=== PATIENT | male | born 1955 | race Caucasian/White ===

== ENCOUNTER 2023-08-29 09:12 | Outpatient (OUT) | payer MEDICARE, SELFPAY ==
[2023-08-29 09:22] LABS: Hemoglobin 15.1 g/dL (14.0-18.0)
[2023-08-29] MEDS: ALBUTEROL SULFATE 2.5 MG/3 ML VIAL NEB IH (10:39)
--- NOTE | 2023-08-29 11:14 | RT_ITS ---
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 Findings were considered accurate and reproducible. Both pre- and post-bronchodilator values utilized for spirometry. Due to software limitations, no prior studies (if performed previously) are currently available for comparison. Spirometry (based on post-bronchodilator values): -FEV1/FVC: Reduced @ 34% -FEV1: Severely reduced @ 43% -FVC: Normal @ 94% -There is no significant bronchodilator response. Lung volumes by plethysmography (based on pre-bronchodilator values): -RV: Increased @ 166% -TLC: High normal @ 117% Diffusion capacity: -DLCO: Severe reduction @ 44% when corrected for Hb 15.1g/dL Flow-volume loop: -Severe obstructive pattern Impressions: -Spirometry suggests severe obstruction. There is no bronchodilator response. An elevated RV suggests air trapping. There is a severely reduced diffusion capacity. Overall study is compatible with COPD/emphysema. Clinical correlation required. Electronically Signed On 09-01-2023 16:17:33 EDT by Israel Miller
== END 2023-08-29 09:13 | disposition home or self-care (01) ==
PROVIDERS: PCP Family Medicine; Visit Provider Family Medicine
DX: J42 Unspecified chronic bronchitis (principal); F17.210 Nicotine dependence, cigarettes, uncomplicated
CPT/HCPCS: 36415; 85018; 94060; 94726; 94729; 99406

== ENCOUNTER 2023-10-13 15:39 | Inpatient (IN) | payer MEDICARE, SELFPAY ==
[2023-10-13] VITALS (57 sets, daily range): BP systolic 105–149; BP diastolic 66–100; PULSE 136–144; RESP 0–39; TEMP 36.6; O2SAT 89–98; BMI 23.7; BMI 23.6
--- NOTE | 2023-10-13 15:54 | ECG_ITS ---
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
--- NOTE | 2023-10-13 16:00 | ED_ITS ---
HPI - Abdominal Pain General Chief Complaint: Abdominal Pain Stated Complaint: ABD/BACK PAIN/LOSS APPETITE Time Seen by Provider: 10/13/23 15:43 Source: patient Mode of arrival: walk-in Limitations: no limitations History of Present Illness HPI narrative: 68-year-old male presents for nausea and vague abdominal pain and lower back pain. He's had these symptoms for five days and has not been able to eat or drink much. He didn't realize his heart was tachycardic. He's had no trauma or fever. Not complaining of chest pain or shortness of breath. His mouth feels dry. Related Data Home Medications Medication Instructions Recorded Confirmed albuterol sulfate 90 mcg/actuation 1 inh inhalation DAILY 10/13/23 10/13/23 aerosol inhaler atorvastatin 10 mg tablet 10 mg PO DAILY 10/13/23 10/13/23 fluticasone fur. 200 mcg-umeclid 1 inh inhalation DAILY 10/13/23 10/13/23 62.5 mcg-vilant 25 mcg inhalat.powder (Trelegy Ellipta) montelukast 10 mg tablet 10 mg PO DAILY 10/13/23 10/13/23 Allergies Allergy/AdvReac Type Severity Reaction Status Date / Time latex Allergy Severe Verified 10/13/23 15:49 adenosine Allergy Intermediate dyspnea Verified 10/13/23 15:49 Review of Systems ROS Narrative A ten point review of systems is negative except as noted above. PFSH PFSH Social History Smoking status: Current every day smoker Exam Narrative Exam Narrative: Nurses note and vital signs reviewed and patient is not hypoxic. General: The patient appears well and in no apparent distress. Patient is resting comfortably on cart. Skin: Warm, dry, no pallor noted. There is no rash noted. Head: Normocephalic, atraumatic Eye: Normal conjunctiva, no drainage Ears, Nose, Mouth, and Throat: oral mucosa is somewhat dry. Nares patent. Mouth without vesicles. Cardiovascular: Regular Rate and Rhythm, tachycardic Respiratory: Patient is in no distress, no accessory muscle use, lungs are clear to auscultation, no wheezing, rales or rhonchi Back: non-tender, no CVA tenderness bilaterally to percussion. GI: mild vague diffuse tenderness. No masses or distention. Musculoskeletal: The patient has no evidence of calf tenderness, no pitting edema, symmetrical pulses noted bilaterally Neurological: A&O, normal speech Psychiatric: Cooperative Constitutional Vital Signs, click to edit/add: Last Vital Signs Temp 97.8 F 10/13/23 15:43 Pulse 142 H 10/13/23 15:43 Resp 22 10/13/23 15:43 BP 139/98 H 10/13/23 18:08 Pulse Ox 96 10/13/23 15:43 O2 Del Method Room Air 10/13/23 15:43 Course Vital Signs Vital signs: Vital Signs Temperature 97.8 F 10/13/23 15:43 Pulse Rate 142 H 10/13/23 15:43 Respiratory Rate 22 10/13/23 15:43 Blood Pressure 149/97 H 10/13/23 15:43 Pulse Oximetry 96 10/13/23 15:43 Oxygen Delivery Method Room Air 10/13/23 15:43 Temperature 97.8 F 10/13/23 15:43 Pulse Rate 142 H 10/13/23 15:43 Respiratory Rate 22 10/13/23 15:43 Blood Pressure 139/98 H 10/13/23 18:08 Pulse Oximetry 96 10/13/23 15:43 Oxygen Delivery Method Room Air 10/13/23 15:43 MDM - Abdominal Pain MDM Narrative Medical decision making narrative: the patient presents with vague abdominal pain and some lower back pain. Urine shows blood and white cells and culture is ordered as well as blood cultures. He was given 2 g of IV Rocephin. WBC is normal as is his lactic acid and renal function. He has consistent with pyelitis and ureteritis. There is no evidence of an abscess or pyelonephritis. He was tachycardic and was given IV fluids and IV Cardizem without change in his heart rate. He is being admitted and findings are discussed with the patient and his . I do not suspect sepsis. Differential Diagnosis Differential diagnosis: Likely abdominal pain, calculus of kidney, constipation, diverticulitis, gastroenteritis, pancreatitis, small bowel obstruction and other (pyelonephritis) Lab Data Attestation: I reviewed the patient's lab results. Labs: Lab Results 10/13/23 10/13/23 10/13/23 Range/Units 15:50 15:55 17:05 WBC 10.5 (4.0-11.0) 10^3/uL RBC 4.48 L (4.70-6.10) 10^6/uL Hgb 15.0 (14.0-18.0) g/dL Hct 45.7 (42.0-54.0) % MCV 102.0 H (80.0-94.0) fL MCH 33.5 (25.9-34.0) pg MCHC 32.8 (29.9-35.2) g/dL RDW 12.8 (11.0-15.0) % Plt Count 289 (150-450) 10^3/uL MPV 9.7 (9.5-13.5) fL Neut % (Auto) 67.7 (43.0-75.0) % Lymph % (Auto) 19.2 L (20.5-60.0) % [place] % (Auto) 9.3 (1.7-12.0) % Eos % (Auto) 2.4 (0.9-7.0) % Baso % (Auto) 1.0 (0.2-2.0) % Neut # (Auto) 7.1 H (1.4-6.5) 10^3/uL Lymph # (Auto) 2.0 (1.2-3.8) 10^3/uL [place] # (Auto) 1.0 H (0.3-0.8) 10^3/uL Eos # (Auto) 0.3 (0.0-0.7) 10^3/uL Baso # (Auto) 0.1 (0.0-0.1) 10^3/uL Abs Immat Gran (auto) 0.04 H (0.00-0.03) 10^3/uL Imm/Tot Granulo (auto) 0.4 (0.0-0.5) % Sodium 134 L (136-145) mmol/L Potassium 4.0 (3.5-5.1) mmol/L Chloride 97 L (98-107) mmol/L Carbon Dioxide 25.4 (21.0-32.0) mmol/L Anion Gap 15.6 BUN 11.0 (7.0-18.0) mg/dL Creatinine 0.89 (0.70-1.30) mg/dL Est GFR ( Amer) >60 (>=60) Est GFR (Non-Af Amer) >60 (>=60) BUN/Creatinine Ratio 12.4 Glucose 126 H (74-106) mg/dL Lactate 1.8 (0.4-2.0) mmol/L Calcium 9.3 (8.5-10.1) mg/dL Total Bilirubin 1.7 H (0.2-1.0) mg/dL Direct Bilirubin 0.6 H* (0.0-0.2) mg/dL AST 18 (15-37) U/L ALT 17 (16-63) U/L Alkaline Phosphatase 77 (46-116) U/L Troponin I High Sens 37.7 (4.0-76.1) pg/mL Total Protein 7.8 (6.4-8.2) g/dL Albumin 3.6 (3.4-5.0) g/dL Globulin 4.2 g/dL Albumin/Globulin Ratio 0.9 Amylase 24 L (25-115) U/L Lipase 16.0 (16.0-77.0) U/L Urine Color Yellow (YELLOW) Urine Clarity Slightly cloudy A (CLEAR) Urine pH 5.5 (5.0-9.0) Ur Specific [place] 1.010 (1.005-1.025) Urine Protein 100 A (NEG/TRACE) mg/dL Urine Glucose (UA) Negative (NEGATIVE) mg/dL Urine Ketones 40 A (NEGATIVE) mg/dL Urine Occult Blood Large A (NEGATIVE) Urine Nitrite Negative (NEGATIVE) Urine Bilirubin Negative (NEGATIVE) Urine Urobilinogen 1.0 (0.2-1.0) EU/dL Ur Leukocyte Esterase Trace A (NEGATIVE) Urine RBC 20-50 A (0-2) #/HPF Urine WBC 5-10 A (NONE SEEN) #/HPF Ur Squamous Epith Cells Rare (NONE/RARE) #/LPF Urine Crystals None seen (None Seen) #/HPF Urine Bacteria None seen (NONE SEEN) #/HPF Urine Casts None seen (NONE SEEN) #/LPF Urine Mucus None seen (NONE SEEN) Imaging Data CT scan - abdomen: Radiologist's impression: Procedure: CT abdomen pelvis w con EXAM: CT abdomen pelvis w con HISTORY: nausea, abdominal pain COMPARISON: None. TECHNIQUE: Axial CT imaging was performed through the abdomen and pelvis with intravenous contrast. Multiplanar reformats were performed. Dose reduction techniques were achieved by using automated exposure control and/or adjustment of mA and/or kV according to patient size and/or use of iterative reconstruction technique. FINDINGS: Lung bases: Small bilateral pleural effusions GI upper: Unremarkable. Liver: Normal size and contour. Gallbladder: No significant abnormality. No cholelithiasis. Biliary system: No intra or extrahepatic biliary ductal dilatation. Spleen: Normal size. Pancreas: Unremarkable. Adrenal glands: Normal adrenal glands. Kidneys/ureters: Normal contours. There is enhancement of the right greater than left renal calyces, pelvis and ureteral bolden with surrounding fat stranding, representing acute pyelitis and ureteritis. No hydronephrosis. No nephrolithiasis or ureterolithiasis. Vessels: No aneurysm. Lymph Nodes: Prominent bilateral periaortic Lymph nodes, likely reactive. Small bowel: No wall thickening or dilatation. Colon: No wall thickening or dilatation. Constipation. Colonic diverticulosis without evidence of acute diverticulitis. Appendix: No findings of appendicitis. Peritoneal cavity: No free fluid or pneumoperitoneum. Lower : Prostatomegaly. No acute urinary bladder finding. Bones: No acute bony abnormality. Soft tissues: No acute finding. Additional findings: None. IMPRESSION: enhancement of the right greater than left renal calyces, pelvis and ureteral bolden with surrounding fat stranding, representing acute pyelitis and ureteritis. Correlation with urinalysis and patient, the symptom is recommended. Electronically authenticated by: CHANNING GONSALES Date: 10/13/2023 16:51 Procedure: XR chest 1V EXAM: XR chest 1V HISTORY: nausea, tachycardia COMPARISON: None. TECHNIQUE: AP portable study FINDINGS: There is bilateral apical scarring. Increased interstitial markings bilaterally are noted, appearing chronic. No superimposed alveolar infiltrate. There is cardiomegaly. Great vessels are normal. Bony structures are unremarkable. IMPRESSION: Cardiomegaly without overt congestive changes. No superimposed acute pulmonary process is identified. Electronically authenticated by: Lorenzo SHAW Date: 10/13/2023 17:10 Discharge Plan Discharge Chief Complaint: Abdominal Pain Clinical Impression: Acute pyelitis Patient Disposition: Admitted As Inpatient Time of Disposition Decision: 18:30 Condition: Good Prescriptions / Home Meds: No Action albuterol sulfate 90 mcg/actuation HFA aerosol inhaler 1 inh INHALATION DAILY atorvastatin 10 mg tablet 10 mg PO DAILY Trelegy Ellipta 200-62.5-25 mcg blister with device 1 inh INHALATION DAILY montelukast 10 mg tablet 10 mg PO DAILY Referrals: Shanell Craig MD [Primary Care Provider] - 1 week
[2023-10-13 16:02] LABS: Basophils Absolute Auto 0.1 10^3/uL (0.0-0.1); Eosinophils Absolute Auto 0.3 10^3/uL (0.0-0.7); Eosinophils Percent Auto 2.4 % (0.9-7.0); Hematocrit 45.7 % (42.0-54.0); Immature Granulocytes Abs Auto 0.04 10^3/uL (0.00-0.03); Immature Granulocytes Pct Auto 0.4 % (0.0-0.5); Lymphocytes Percent Auto 19.2 % (20.5-60.0); Mean Corpuscular HGB Conc 32.8 g/dL (29.9-35.2); Mean Corpuscular Hemoglobin 33.5 pg (25.9-34.0); Mean Platelet Volume 9.7 fL (9.5-13.5); Monocytes Percent Auto 9.3 % (1.7-12.0); Neutrophils Absolute Auto 7.1 10^3/uL (1.4-6.5); Neutrophils Percent Auto 67.7 % (43.0-75.0); Platelet Count 289 10^3/uL (150-450); Red Blood Count 4.48 10^6/uL (4.70-6.10); Red Cell Distribution Width 12.8 % (11.0-15.0); White Blood Count 10.5 10^3/uL (4.0-11.0)
[2023-10-13] MEDS: ONDANSETRON PF 4 MG/2 ML VIAL IV (16:09)
[2023-10-13] MEDS: 0.9 % SODIUM CHLORIDE 1,000 ML 1000 ML IV ×2 (16:10→17:35)
[2023-10-13 16:11] LABS: Anion Gap 15.6; BUN Creatinine Ratio 12.4; Calcium 9.3 mg/dL (8.5-10.1); Carbon Dioxide 25.4 mmol/L (21.0-32.0); Chloride 97 mmol/L (98-107); Estimated GFR (African America >60 (>=60); Estimated GFR (Non-African Ame >60 (>=60); Glucose 126 mg/dL (74-106); Sodium 134 mmol/L (136-145)
[2023-10-13 16:20] LABS: Alanine Aminotransferase 17 U/L (16-63); Albumin Globulin Ratio 0.9; Albumin Level 3.6 g/dL (3.4-5.0); Alkaline Phosphatase 77 U/L (46-116); Amylase 24 U/L (25-115); Aspartate Amino Transferase 18 U/L (15-37); Bilirubin Total 1.7 mg/dL (0.2-1.0); Globulin 4.2 g/dL; Total Protein 7.8 g/dL (6.4-8.2); Troponin I High Sensitivity 37.7 pg/mL (4.0-76.1)
[2023-10-13 16:21] LABS: Bilirubin Direct 0.6 mg/dL (0.0-0.2)
--- NOTE | 2023-10-13 16:32 | CT_ITS ---
The [address] [place], [place] [address] Patient Name: GABRIELA JAFFE MRN: [id number] date: 1955 Sex: M Assigned Patient Location: ER Current Patient Location: ER Accession/Order Number: [id number] Exam Date: 10/13/2023 16:19 Report Date: 10/13/2023 16:51 At the request of: SHELDON SIMPSON Procedure: CT abdomen pelvis w con EXAM: CT abdomen pelvis w con HISTORY: nausea, abdominal pain COMPARISON: None. TECHNIQUE: Axial CT imaging was performed through the abdomen and pelvis with intravenous contrast. Multiplanar reformats were performed. Dose reduction techniques were achieved by using automated exposure control and/or adjustment of mA and/or kV according to patient size and/or use of iterative reconstruction technique. FINDINGS: Lung bases: Small bilateral pleural effusions GI upper: Unremarkable. Liver: Normal size and contour. Gallbladder: No significant abnormality. No cholelithiasis. Biliary system: No intra or extrahepatic biliary ductal dilatation. Spleen: Normal size. Pancreas: Unremarkable. Adrenal glands: Normal adrenal glands. Kidneys/ureters: Normal contours. There is enhancement of the right greater than left renal calyces, pelvis and ureteral bolden with surrounding fat stranding, representing acute pyelitis and ureteritis. No hydronephrosis. No nephrolithiasis or ureterolithiasis. Vessels: No aneurysm. Lymph Nodes: Prominent bilateral periaortic Lymph nodes, likely reactive. Small bowel: No wall thickening or dilatation. Colon: No wall thickening or dilatation. Constipation. Colonic diverticulosis without evidence of acute diverticulitis. Appendix: No findings of appendicitis. Peritoneal cavity: No free fluid or pneumoperitoneum. Lower : Prostatomegaly. No acute urinary bladder finding. Bones: No acute bony abnormality. Soft tissues: No acute finding. Additional findings: None. CT/CT abdomen pelvis w con IMPRESSION: enhancement of the right greater than left renal calyces, pelvis and ureteral bolden with surrounding fat stranding, representing acute pyelitis and ureteritis. Correlation with urinalysis and patient, the symptom is recommended. Electronically authenticated by: CHANNING GONSALES Date: 10/13/2023 16:51
--- NOTE | 2023-10-13 16:33 | XR_ITS ---
The [address] [address] Patient Name: GABRIELA JAFFE MRN: [id number] date: 1955 Sex: M Assigned Patient Location: ER Current Patient Location: ER Accession/Order Number: [id number] Exam Date: 10/13/2023 16:19 Report Date: 10/13/2023 17:10 At the request of: SHELDON SIMPSON Procedure: XR chest 1V EXAM: XR chest 1V HISTORY: nausea, tachycardia COMPARISON: None. TECHNIQUE: AP portable study FINDINGS: There is bilateral apical scarring. Increased interstitial markings bilaterally are noted, appearing chronic. No superimposed alveolar infiltrate. There is cardiomegaly. Great vessels are normal. Bony structures are unremarkable. XR/XR chest 1V IMPRESSION: Cardiomegaly without overt congestive changes. No superimposed acute pulmonary process is identified. Electronically authenticated by: Lorenzo SHAW Date: 10/13/2023 17:10
[2023-10-13 16:42] LABS: Lactate/Lactic Acid 1.8 mmol/L (0.4-2.0)
[2023-10-13] MEDS: MORPHINE SULFATE 4 MG/ML VIAL IV ×2 (16:46→18:26)
[2023-10-13 17:16] LABS: Bilirubin Urine NEGATIVE (NEGATIVE); Blood Urine LARGE (NEGATIVE); Color Urine YELLOW (YELLOW); Glucose Urine UA NEGATIVE (NEGATIVE); Ketones Urine 40 mg/dL (NEGATIVE); Leukocyte Esterase Urine TRACE (NEGATIVE); Nitrite Urine NEGATIVE (NEGATIVE); Protein Urine 100 mg/dL (NEG/TRACE); pH Urine 5.5 (5.0-9.0)
[2023-10-13 17:17] LABS: Clarity Urine SLIGHTLY CLOUDY (CLEAR)
[2023-10-13 17:23] LABS: Bacteria Urine NONE SEEN #/HPF (NONE SEEN); Cast Seen? NONE SEEN #/LPF (NONE SEEN); Crystals Seen? None Seen #/HPF (None Seen); Mucus Urine NONE SEEN (NONE SEEN); RBC Urine 20-50 #/HPF (0-2); Squamous Epithelial Cell Urine RARE #/LPF (NONE/RARE)
[2023-10-13] MEDS: DILTIAZEM HCL 25 MG/5 ML VIAL 10 MG IV ×2 (17:35→18:08)
[2023-10-13] MEDS: CEFTRIAXONE 1,000 MG in 0.9 % SODIUM CHLORIDE 50 ML 100 MG IV ×2 (17:57→19:03)
--- NOTE | 2023-10-13 19:58 | W.PM.TELEPN ---
Progress Note: Subjective Subjective Interval history: Mr Maradiaga is a 68yo man with a PMHx of COPD and Hyperlipidemia who presented to the ED with five days of nausea, vomiting, and lower abdominal pain. He had a hard time eating any food because he would vomit it up and he tried to drink electrolyte balanced water. Three days ago he started to have flank pain and he noticed that his urine had become dark and malodorous, but he did not have any dysuria. He denies any palpitations, chest pain, SOB, or fevers, but he did have some chills. He did not have any diarrhea or constipation. In the ED he was found to have pyuria and hematuria and was persistently tachycardic. A CT Abd/pelvis showed evidence of bilateral pyelitis and cystitis so he was started on ceftriaxone and IVF. His tachycardia did not improve and his EKG showed sinus tachycardia. The ED physician gave one dose of diltiazem for possible atrial fibrillation with no change. Exam Constitutional Vital Signs, click to edit/add: Last Vital Signs Temp 98 F 10/13/23 19:43 Pulse 138 H 10/13/23 19:53 Resp 16 10/13/23 19:53 BP 126/91 10/13/23 19:43 Pulse Ox 90 L 10/13/23 19:53 O2 Del Method Room Air 10/13/23 19:53 Documenting provider has reviewed patient's vital signs: yes Common normals: no apparent distress, average body habitus, oriented x3, no limitations, healthy appearing, alert and well nourished [facility] Common normals: normocephalic, head/scalp atraumatic, hearing grossly normal bilaterally, external ears normal and external nose normal Eye Common normals: PERRL, EOMs intact bilaterally, conjunctivae normal, no scleral icterus and normal visual gayle by confrontation Neck & C-Spine Common normals: full ROM, no lymphadenopathy, supple, no meningeal signs and no JVD Lymph Lymphatic: no lymphadenopathy noted Chest Common normals: inspection of chest normal and palpation of chest normal Respiratory Common normals: normal respiratory effort, no retractions, no use of accessory muscles and clear to auscultation bilaterally Cardio Common normals: no JVD, regular rate, regular rhythm, S1 normal heart sound, S2 normal heart sound, no murmurs and peripheral pulses 2+ throughout GI Common normals: Normal to inspection, nondistended, normoactive bowel sounds present, soft to palpation and non-tender Common normals: no CVA tenderness Back & Pelvis Common normals: no CVA tenderness Extremity Common normals: normal to inspection, full ROM, normal capillary refill, no joint enlargement, no clubbing, cyanosis or edema and no pedal edema Neuro Common normals: oriented x3, CN's II-XII intact bilaterally, moves all extremities, no focal motor deficits and no sensory deficits noted Psych Common normals: mental status grossly normal, thought process normal, cooperative, affect normal, speech normal, activity/motor behavior normal, denies hallucinations, denies homicidal ideation and denies suicidal ideation Progress Note: Objective Labs Labs: Short CBC 10/13/23 Range/Units 15:50 WBC 10.5 (4.0-11.0) 10^3/uL Hgb 15.0 (14.0-18.0) g/dL Hct 45.7 (42.0-54.0) % Plt Count 289 (150-450) 10^3/uL BMP 10/13/23 15:50 Sodium 134 L Potassium 4.0 Chloride 97 L Carbon Dioxide 25.4 BUN 11.0 Creatinine 0.89 Glucose 126 H Calcium 9.3 Liver Function 10/13/23 Range/Units 15:50 Total Bilirubin 1.7 H (0.2-1.0) mg/dL Direct Bilirubin 0.6 H* (0.0-0.2) mg/dL AST 18 (15-37) U/L ALT 17 (16-63) U/L Alkaline Phosphatase 77 (46-116) U/L Albumin 3.6 (3.4-5.0) g/dL Urine 10/13/23 Range/Units 17:05 Urine Color Yellow (YELLOW) Urine Clarity Slightly cloudy A (CLEAR) Urine pH 5.5 (5.0-9.0) Ur Specific [place] 1.010 (1.005-1.025) Urine Protein 100 A (NEG/TRACE) mg/dL Urine Glucose (UA) Negative (NEGATIVE) mg/dL Progress Note: A&P Assessment and Plan (1) Acute pyelitis: Assessment and Plan: He has pyuria, hematuria and CT evidence of bilateral pyelitis. - admit to hospitalist service - c/w ceftriaxone - f/u blood and urine cultures - pain control - c/w IVF (2) Tachycardia: Assessment and Plan: The patient has persistent tachcyardia that is sinus tachycardia on the EKG. It did not improve with diltiazem. He went to his see his pulmnolologist a week ago before his sysmptoms started and at that time he was noted to have a HR of 119. - c/w IVF for now (3) Hyponatremia: Assessment and Plan: Very mildly below normal at 134. - c/w IVF - trend sodium (4) COPD (chronic obstructive pulmonary disease): Assessment and Plan: He has been noted to drip down to 86% when sleeping. He does not use any oxygen at home. - supplemental oxygen to keep O2sat >88%. - c/w montelukast - c/w trelegy - c/w duonebs as needed (5) Hypercholesteremia: Assessment and Plan: - c/w atorvastatin Telemedicine Attestation Telemedicine Attestation I conducted this encounter from [place] via secure live, [id number] video conference with the patient, located at [facility] with Ann. Prior to the interview, the risks and benefits of telemedicine were discussed with the patient and verbal consent was obtained.
[2023-10-13] MEDS: LACTATED RINGER'S SOLUTION 1,000 ML 100 ML IV (23:53)
[2023-10-13] MEDS: OXYCODONE HCL/ACETAMINOPHEN 5MG/325MG 1 TAB PO (23:55)
[2023-10-14] VITALS (122 sets, daily range): BP systolic 91–117; BP diastolic 65–89; PULSE 128–139; RESP 0–32; TEMP 36.4–36.9; O2SAT 88–98
[2023-10-14 06:33] LABS: Anion Gap 13.8; BUN Creatinine Ratio 11.8; Calcium 8.1 mg/dL (8.5-10.1); Carbon Dioxide 24.2 mmol/L (21.0-32.0); Chloride 102 mmol/L (98-107); Estimated GFR (African America >60 (>=60); Estimated GFR (Non-African Ame >60 (>=60); Glucose 106 mg/dL (74-106); Sodium 136 mmol/L (136-145)
[2023-10-14 06:46] LABS: Basophils Percent Auto 0.8 % (0.2-2.0); Eosinophils Percent Auto 5.1 % (0.9-7.0); Hematocrit 38.7 % (42.0-54.0); Hemoglobin 13.3 g/dL (14.0-18.0); Immature Granulocytes Pct Auto 0.3 % (0.0-0.5); Lymphocytes Percent Auto 34.3 % (20.5-60.0); Mean Corpuscular HGB Conc 34.4 g/dL (29.9-35.2); Mean Corpuscular Hemoglobin 35.6 pg (25.9-34.0); Mean Corpuscular Volume 103.5 fL (80.0-94.0); Mean Platelet Volume 10.2 fL (9.5-13.5); Neutrophils Percent Auto 48.5 % (43.0-75.0); Platelet Count 262 10^3/uL (150-450); Red Blood Count 3.74 10^6/uL (4.70-6.10); White Blood Count 8.6 10^3/uL (4.0-11.0)
[2023-10-14 06:47] LABS: Basophils Absolute Auto 0.1 10^3/uL (0.0-0.1); Eosinophils Absolute Auto 0.4 10^3/uL (0.0-0.7); Immature Granulocytes Abs Auto 0.03 10^3/uL (0.00-0.03); Neutrophils Absolute Auto 4.2 10^3/uL (1.4-6.5)
[2023-10-14] MEDS: OXYCODONE HCL/ACETAMINOPHEN 5MG/325MG 1 TAB PO (08:29)
[2023-10-14] MEDS: ATORVASTATIN CALCIUM 10 MG TABLET PO (08:33)
[2023-10-14] MEDS: ENOXAPARIN SODIUM 40 MG/0.4 ML SYRINGE SUBQ (08:33)
[2023-10-14] MEDS: BISACODYL 5 MG TABLET PO (08:33)
[2023-10-14] MEDS: MONTELUKAST SODIUM 10 MG TABLET PO (08:33)
[2023-10-14] MEDS: METOPROLOL TARTRATE 5 MG/5 ML VIAL IVP ×3 (09:13→09:44)
[2023-10-14] MEDS: MORPHINE SULFATE 2 MG/ML SYRINGE IV (09:14)
[2023-10-14 09:15] LABS: Magnesium 1.7 mg/dL (1.8-2.4)
--- NOTE | 2023-10-14 09:26 | ECG_ITS ---
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
--- NOTE | 2023-10-14 10:48 | CM.NOTE ---
Rounds made with Dr. Salmeron, pt remains tachycardic. Discussed with pt about cardiology consult. No discharge today. Continue IV antibiotics.
[2023-10-14] MEDS: LACTATED RINGER'S SOLUTION 1,000 ML 100 ML IV (11:09)
[2023-10-14] MEDS: TRELEGY ELLIPTA 1 EACH IH (11:09)
--- NOTE | 2023-10-14 11:15 | CA_ITS ---
Patient Name: GABRIELA JAFFE MR#: [id number] : 1955 Exam Date: 10/14/2023 Ordering Doctor: Shaikh Robert Salmeron . ECHOCARDIOGRAM REPORT PROCEDURE: CA ECHO DOPPLER COMPLETE INDICATIONS: Abnormal rhythm COMPARISON: None. DESCRIPTION: COMPLETE ECHOCARDIOGRAM Real-time transthoracic echocardiography with 2D, M-mode, spectral and color flow Doppler performed. QUALITY: Technical quality was good. LEFT VENTRICLE: Normal chamber size. Normal left ventricular wall thickness. LV EF: Global left ventricular systolic function is severely decreased. Visual estimation of left ventricular ejection fraction is 20-25%. D shaped septum consistent with right ventricular pressure and/or volume overload. DIASTOLIC: Not adequately assessed due to heart rhythm. ATRIAL SEPTUM: Inadequately visualized. LEFT ATRIUM: Severe dilatation. RIGHT ATRIUM: Severe dilatation. RIGHT VENTRICLE: Moderate dilatation. Decreased right ventricular systolic function. TRICUSPID VALVE: Normal mobility and thickness. Moderate to severe regurgitation. Moderate pulmonary hypertension. RVSP 50mmHg MITRAL VALVE: Normal mobility and thickness. No evidence of mitral valve stenosis. There is no mitral annular calcification. Moderate to severe mitral regurgitation. AORTIC VALVE: Normal trileaflet appearance. Moderately calcified aortic valve. Normal leaflet mobility. No evidence of aortic valve stenosis. Trivial aortic regurgitation. AORTIC ROOT: Normal diameter and appearance. PULMONIC VALVE: Normal thickness and mobility. No stenosis. Trivial regurgitation. PERICARDIUM: Trivial pericardial effusion. IVC: Mild dilatation. Measuring 2.3cm with no collapse. CONCLUSION: 1. Global left ventricular systolic function is severely reduced; visually estimated ejection fraction is 20 to 25% 2. Severe biatrial enlargement 3. Right ventricle is moderately dilated with reduced systolic function 4. Moderate to severe tricuspid regurgitation 5. Moderately elevated right ventricular systolic pressure; RVSP 50 mmHg 6. Moderate to severe mitral regurgitation 7. Trivial pericardial effusion Adult Echocardiography Procedure Report Left Ventricle LVEDD (3.7 - 5.6 cm): 5.20 cm LVESD (2.2 - 4.0 cm): 4.27 cm LVIVS thickness (0.6 - 1.2 cm): 0.86 cm LVPW thickness (0.5 - 1.0 cm): 1.02 cm e': 0.10 m/s E - e': 9.78 LVOT Max Gradient: 1.90 mm[Hg], 1.83 mm[Hg], 1.83 mm[Hg] LVOT Area (cm2): 0.68 m/s Peak Velocity (LVOT): 0.69 m/s, 0.68 m/s, 0.68 m/s Mean Velocity (LVOT): 0.42 m/s LVOT Diameter 2.29 cm Left Ventricular Ejection Fraction: 24.98 % Left Atrium LA Volume Index (2D A2C): 59.45 ml/m2 Left Atrium Systolic Dimension: 4.59 cm Mitral Valve MV E to A Ratio: 154.81 Mitral Valve A-Wave Peak Velocity: 0.01 m/s Mitral Valve E-Wave Peak Velocity: 1.00 m/s Right Ventricle RV Internal Diastolic Dimension: 4.26 cm Aorta AO Root Diam: 3.35 cm Ascending Ao Diam: 3.05 cm Aortic Valve AoV Area (Peak Darrell): 3.25 cm2, 3.29 cm2 AoV Area (VTI): 5.36 cm2, 5.35 cm2 Peak Velocity(Antegrade Flow): 0.86 m/s Peak Gradient(Antegrade Flow): 2.95 mm[Hg] Mean Velocity(Antegrade Flow): 0.55 m/s Mean Gradient(Antegrade Flow): 1.50 mm[Hg] Velocity Time Integral: 8.55 cm Tricuspid Valve Peak Velocity (Regurgitant Flow): 2.72 m/s, 2.74 m/s, 2.69 m/s, 2.59 m/s, 2.59 m/s, 2.88 m/s, 2.95 m/s Pulmonic Valve Peak Velocity: 0.64 m/s Peak Gradient: 1.61 mm[Hg], 1.64 mm[Hg] Right Atrium Right Atrium Systolic Pressure: 139.79 ml, 139.79 ml Dictated by: Marc Godinez M.D. on 10/15/2023 at 09:33 Approved by: Marc Godinez M.D. on 10/15/2023 at 09:39
--- NOTE | 2023-10-14 12:55 | PM.HP ---
H&P: HPI History of Present Illness Chief complaint: ABD/BACK PAIN/LOSS APPETITE, Pyelitis Narrative: 68 y o male reports nausea, intractable vomiting along with right sided back pain for past few days. He also reports poor appetite, decreased PO intake as a result of that. He is unsure of whether he had a fever. But experienced chills. Denies diarrhea. He is generally healthy and has no major medical problems other than COPD. Patient reports foul smelling urine and dysuria associated with his symptoms His work up revealed Bilateral pyelonephritis and was admitted overnight for continued clinical care. Patient was started on IVF and IV rocpehin. His HR has been persistently above 130 since admission. He has no prior hx of CAD/CHF/Afib or abnormal heart rhythm. He denies CP, SOB, palpitations. He does not appear dry on exam Review of Systems ROS Status of ROS 10 or more systems reviewed and unremarkable except as noted in history and below PFSH [facility] Medical History COPD (chronic obstructive pulmonary disease) ?J44.9 - Chronic obstructive pulmonary disease, unspecified (ICD-10) Hypercholesteremia ?E78.00 - Pure hypercholesterolemia, unspecified (ICD-10) Surgical History H/O sinus surgery ?Z98.890 - Other specified postprocedural states (ICD-10) Family History Mother Family history of stroke Other Family history of COPD (chronic obstructive pulmonary disease) Family history of hypertension Social History Within the past year, how often did you have a drink containing alcohol: 4 or more times a week Within the past year, how many standard drinks containing alcohol did you have on a typical day: 3 or 4 Within the past year, how often did you have six or more drinks on one occasion: daily or almost daily Total score: 6 Score interpretation: A score of 4 or more indicates drinking is likely to affect patient's safety. 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 Highest level of school completed/degree received: Professional degree (MD, [employer], DVM, DDS) Are you now , , , , never or living with a partner: Little interest or pleasure in doing things: not at all Feeling down, depressed, or hopeless: not at all Feel stressed/tense/nervous/anxious/difficulty sleeping: not at all Meds Home Medications and Allergies Home Medications Medication Instructions Recorded Confirmed Type albuterol sulfate 90 mcg/actuation 1 inh inhalation DAILY 10/13/23 10/13/23 History aerosol inhaler atorvastatin 10 mg tablet 10 mg PO DAILY 10/13/23 10/13/23 History fluticasone fur. 200 mcg-umeclid 1 inh inhalation DAILY 10/13/23 10/13/23 History 62.5 mcg-vilant 25 mcg inhalat.powder (Trelegy Ellipta) ipratropium 0.5 mg-albuterol 3 mg 3 ml inhalation BID 10/13/23 10/13/23 History (2.5 mg base)/3 mL nebulization soln montelukast 10 mg tablet 10 mg PO DAILY 10/13/23 10/13/23 History Allergies Allergy/AdvReac Type Severity Reaction Status Date / Time latex Allergy Severe Verified 10/13/23 15:49 adenosine Allergy Intermediate dyspnea Verified 10/13/23 15:49 Exam Constitutional Vital Signs, click to edit/add: Last Vital Signs Temp 98.1 F 10/14/23 07:40 Pulse 132 H 10/14/23 12:50 Resp 16 10/14/23 12:50 BP 93/72 10/14/23 09:41 Pulse Ox 88 L 10/14/23 07:40 O2 Del Method Room Air 10/14/23 07:40 Documenting provider has reviewed patient's vital signs: yes Common normals: no apparent distress and oriented x3 General appearance: cooperative HENMT Common normals: normocephalic and head/scalp atraumatic Head and scalp: normocephalic and atraumatic Eye Common normals: conjunctivae normal and no scleral icterus Conjunctiva: conjunctiva(e) normal Respiratory Common normals: normal respiratory effort and clear to auscultation bilaterally Effort & inspection: able to speak in complete sentences Auscultation: clear to auscultation bilaterally Cardio Common normals: regular rate, S1 normal heart sound and S2 normal heart sound Rate: tachycardic Heart sounds: S1 normal and S2 normal GI Common normals: Normal to inspection, nondistended, normoactive bowel sounds present, soft to palpation, non-tender and no hepatosplenomegaly Palpation: soft and no hepatosplenomegaly Extremity Common normals: no clubbing, cyanosis or edema Neuro Common normals: oriented x3, moves all extremities and no focal motor deficits Psych Common normals: mental status grossly normal, denies hallucinations, denies homicidal ideation and denies suicidal ideation Results Labs Labs: Short CBC 10/13/23 10/14/23 Range/Units 15:50 04:02 WBC 10.5 8.6 (4.0-11.0) 10^3/uL Hgb 15.0 13.3 L (14.0-18.0) g/dL Hct 45.7 38.7 L (42.0-54.0) % Plt Count 289 262 (150-450) 10^3/uL BMP 10/13/23 10/14/23 15:50 04:02 Sodium 134 L 136 Potassium 4.0 4.0 Chloride 97 L 102 Carbon Dioxide 25.4 24.2 BUN 11.0 9.0 Creatinine 0.89 0.76 Glucose 126 H 106 Calcium 9.3 8.1 L Liver Function 10/13/23 Range/Units 15:50 Total Bilirubin 1.7 H (0.2-1.0) mg/dL Direct Bilirubin 0.6 H* (0.0-0.2) mg/dL AST 18 (15-37) U/L ALT 17 (16-63) U/L Alkaline Phosphatase 77 (46-116) U/L Albumin 3.6 (3.4-5.0) g/dL Urine 10/13/23 Range/Units 17:05 Urine Color Yellow (YELLOW) Urine Clarity Slightly cloudy A (CLEAR) Urine pH 5.5 (5.0-9.0) Ur Specific [place] 1.010 (1.005-1.025) Urine Protein 100 A (NEG/TRACE) mg/dL Urine Glucose (UA) Negative (NEGATIVE) mg/dL Assessment and Plan Assessment and Plan (1) Sepsis: Assessment and Plan: HR > 130, RR> 20 due to pyelonephritis. Other than tachycardia, he seems to be improving. C/w IVF. C/w rocephin. Qualifiers: Sepsis type: sepsis due to unspecified organism Sepsis acute organ dysfunction status: without acute organ dysfunction Qualified Code(s): A41.9 - Sepsis, unspecified organism (2) Acute pyelonephritis: Assessment and Plan: B/l pyeloureteritis. No stone, obstruction F/u urine and blood culture. C/w IV rocephin (3) Tachycardia: Assessment and Plan: No Afib, atrial flutter. Persistent, regular. No prior hx of heart conditions. Added Lopressor. 2D ECHO ordered. Cardiology consult placed. (4) COPD (chronic obstructive pulmonary disease): Assessment and Plan: Stable. No wheezing. C/w home meds Qualifiers: COPD type: unspecified COPD Qualified Code(s): J44.9 - Chronic obstructive pulmonary disease, unspecified (5) Hypercholesteremia: Assessment and Plan: C/w statin.
--- NOTE | 2023-10-14 15:26 | CM.NOTE ---
Important Message From Medicare discussed with pt, pt verbalizes understanding and signs paper. Original given to pt and copy placed on pt's chart.
--- NOTE | 2023-10-14 17:27 | P.CACN_ITS ---
History of Present Illness History of Present Illness Consult date: 10/14/23 Consult reason: atrial fibrillation Chief complaint: ABD/BACK PAIN/LOSS APPETITE, Pyelitis Narrative: 68 y o male with PMH of COPD/ HLD was admitted to with nausea, intractable vomiting along with right sided back pain for past few days. His evaluation in hospital revealed Bilateral pyelonephritis with tachycardia and was admitted overnight for continued clinical care. Patient was started on IVF and IV rocpehin. His HR has been persistently above 130 since admission. He has no prior hx of CAD/CHF/Afib or abnormal heart rhythm. He denies CP, SOB, palpitations. He does not appear dry on exam. His EKG performed in the hospital is revealing for atrial flutter with RVR. He has never been diagnosed previosuly with Afib. Review of Systems ROS Status of ROS 10 or more systems reviewed and unremark able except as noted in history and below [facility] Medical History COPD (chronic obstructive pulmonary disease) ?J44.9 - Chronic obstructive pulmonary disease, unspecified (ICD-10) Hypercholesteremia ?E78.00 - Pure hypercholesterolemia, unspecified (ICD-10) Surgical History H/O sinus surgery ?Z98.890 - Other specified postprocedural states (ICD-10) Family History Mother Family history of stroke Other Family history of COPD (chronic obstructive pulmonary disease) Family history of hypertension Social History Within the past year, how often did you have a drink containing alcohol: 4 or more times a week Within the past year, how many standard drinks containing alcohol did you have on a typical day: 3 or 4 Within the past year, how often did you have six or more drinks on one occasion: daily or almost daily Total score: 6 Score interpretation: A score of 4 or more indicates drinking is likely to affect patient's safety. 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 Highest level of school completed/degree received: Professional degree ([employer]ika CE[employer]ALLOS[employer], DVM, DDS) Are you now , , , , never or living with a partner: Little interest or pleasure in doing things: not at all Feeling down, depressed, or hopeless: not at all Feel stressed/tense/nervous/anxious/difficulty sleeping: not at all Meds Home Medications and Allergies Home Medications Medication Instructions Recorded Confirmed Type albuterol sulfate 90 mcg/actuation 1 inh inhalation DAILY 10/13/23 10/13/23 History aerosol inhaler atorvastatin 10 mg tablet 10 mg PO DAILY 10/13/23 10/13/23 History fluticasone fur. 200 mcg-umeclid 1 inh inhalation DAILY 10/13/23 10/13/23 History 62.5 mcg-vilant 25 mcg inhalat.powder (Trelegy Ellipta) ipratropium 0.5 mg-albuterol 3 mg 3 ml inhalation BID 10/13/23 10/13/23 History (2.5 mg base)/3 mL nebulization soln montelukast 10 mg tablet 10 mg PO DAILY 10/13/23 10/13/23 History Allergies Allergy/AdvReac Type Severity Reaction Status Date / Time latex Allergy Severe Verified 10/13/23 15:49 adenosine Allergy Intermediate dyspnea Verified 10/13/23 15:49 Exam Constitutional Vital Signs, click to edit/add: Last Vital Signs Temp 97.6 F 10/14/23 15:38 Pulse 133 H 10/14/23 16:00 Resp 32 H 10/14/23 15:30 BP 91/66 10/14/23 12:55 Pulse Ox 93 L 10/14/23 11:03 O2 Del Method Room Air 10/14/23 12:55 Common normals: oriented x3 General appearance: cooperative and comfortable Orientation/consciousness: Yes awake, Yes oriented to person, Yes oriented to place and Yes oriented to time HENNH Common normals: normocephalic Head and scalp: normal to inspection Face and sinus: normal facial exam General ear: hearing grossly impaired Mouth: oral and palatal mucosa normal Eye Common normals: PERRL Chest Common normals: inspection of chest normal Respiratory Common normals: normal respiratory effort Effort & inspection: able to speak in complete sentences Auscultation: clear to auscultation bilaterally Percussion: percussion normal Cardio Common normals: no JVD Palpation: normal PMI Rate: tachycardic Rhythm: regular rhythm Heart sounds: S1 normal and S2 normal GI Common normals: Normal to inspection, nondistended, normoactive bowel sounds present Extremity Common normals: normal to inspection, full ROM and no clubbing, cyanosis or edema Neuro Common normals: oriented x3, CN's II-XII intact bilaterally and moves all extremities Results Labs and Meds Lab results: CBC 10/14/23 Range/Units 04:02 WBC 8.6 (4.0-11.0) 10^3/uL RBC 3.74 L (4.70-6.10) 10^6/uL Hgb 13.3 L (14.0-18.0) g/dL Hct 38.7 L (42.0-54.0) % Plt Count 262 (150-450) 10^3/uL Neut # (Auto) 4.2 (1.4-6.5) 10^3/uL Lymph # (Auto) 3.0 (1.2-3.8) 10^3/uL Bailey # (Auto) 1.0 H (0.3-0.8) 10^3/uL Eos # (Auto) 0.4 (0.0-0.7) 10^3/uL Baso # (Auto) 0.1 (0.0-0.1) 10^3/uL Comprehensive Metabolic Panel 10/14/23 Range/Units 04:02 Sodium 136 (136-145) mmol/L Potassium 4.0 (3.5-5.1) mmol/L Chloride 102 (98-107) mmol/L Carbon Dioxide 24.2 (21.0-32.0) mmol/L BUN 9.0 (7.0-18.0) mg/dL Creatinine 0.76 (0.70-1.30) mg/dL Glucose 106 (74-106) mg/dL Calcium 8.1 L (8.5-10.1) mg/dL Intake and Output 10/14/23 10/14/23 10/14/23 07:59 15:59 23:59 Intake Total 1240 / 1240 Balance 1240 / 1240 Intake: Oral 240 / 240 IV 1000 / 1000 Lactated Ringer's Solution 1, 1000 / 1000 000 ml @ 100 mls/hr IV .Q10H JIM Rx#:[id number] Other: # Voids 1 # Unmeasured Voids 1 Assessment and Plan Assessment and Plan (1) Atrial flutter with rapid ventricular response: (2) Sepsis: Qualifiers: Sepsis type: sepsis due to unspecified organism Sepsis acute organ dysfunction status: without acute organ dysfunction Qualified Code(s): A41.9 - Sepsis, unspecified organism (3) Acute pyelonephritis: (4) COPD (chronic obstructive pulmonary disease): Qualifiers: COPD type: unspecified COPD Qualified Code(s): J44.9 - Chronic obstructive pulmonary disease, unspecified (5) Hypercholesteremia: Plan Pt has underlying sepsis and with concurrent atrial flutter with RVR. The underlying hyperadrenergic state will make his ventricular rate difficult to control. Will aim for AVN blockers now with BB. If ECHO is done and EF is normal, then can consider Cardizem drip. If at any point, there is hemodynamic instability, can proceed with DCCV based on ACLS protocol. His CHADSVASC score is 1 based on age and can be started on DOAC until 4 weeks post DCCV. Can consider outpt CTI flutter ablation once acute illness is over. ECHO to be done and ischemia to be ruled out with serial EKG and Trops. Abel Castaneda MD Cardiac Electrophysiology
[2023-10-14] MEDS: CEFTRIAXONE 1,000 MG in 0.9 % SODIUM CHLORIDE 50 ML 100 MG IV (17:31)
[2023-10-14] MEDS: DIGOXIN 500 MCG/2 ML AMPUL 250 MCG IV (18:13)
[2023-10-14] MEDS: APIXABAN 5 MG TABLET PO (18:14)
[2023-10-14] MEDS: METOPROLOL TARTRATE 25 MG TABLET PO (21:11)
[2023-10-14] MEDS: NICOTINE 21 MG PATCH.TD24 TD (21:30)
[2023-10-15] VITALS (44 sets, daily range): BP systolic 100–144; BP diastolic 57–85; PULSE 95–137; RESP 12–28; TEMP 36.7–36.9; O2SAT 89–96
[2023-10-15] MEDS: DIGOXIN 500 MCG/2 ML AMPUL 250 MCG IV ×3 (00:07→12:55)
[2023-10-15 05:10] LABS: Basophils Absolute Auto 0.1 10^3/uL (0.0-0.1); Basophils Percent Auto 0.8 % (0.2-2.0); Eosinophils Absolute Auto 0.6 10^3/uL (0.0-0.7); Eosinophils Percent Auto 7.7 % (0.9-7.0); Hematocrit 38.9 % (42.0-54.0); Hemoglobin 12.7 g/dL (14.0-18.0); Immature Granulocytes Abs Auto 0.05 10^3/uL (0.00-0.03); Immature Granulocytes Pct Auto 0.6 % (0.0-0.5); Lymphocytes Absolute Auto 2.9 10^3/uL (1.2-3.8); Lymphocytes Percent Auto 36.2 % (20.5-60.0); Mean Corpuscular HGB Conc 32.6 g/dL (29.9-35.2); Mean Corpuscular Hemoglobin 33.2 pg (25.9-34.0); Mean Corpuscular Volume 101.6 fL (80.0-94.0); Mean Platelet Volume 10.4 fL (9.5-13.5); Monocytes Absolute Auto 0.9 10^3/uL (0.3-0.8); Monocytes Percent Auto 11.3 % (1.7-12.0); Neutrophils Absolute Auto 3.4 10^3/uL (1.4-6.5); Neutrophils Percent Auto 43.4 % (43.0-75.0); Platelet Count 242 10^3/uL (150-450); Red Blood Count 3.83 10^6/uL (4.70-6.10); Red Cell Distribution Width 12.9 % (11.0-15.0); White Blood Count 7.9 10^3/uL (4.0-11.0)
[2023-10-15 05:30] LABS: Alanine Aminotransferase 15 U/L (16-63); Albumin Globulin Ratio 0.8; Albumin Level 2.7 g/dL (3.4-5.0); Alkaline Phosphatase 59 U/L (46-116); Anion Gap 12.8; Aspartate Amino Transferase 15 U/L (15-37); BUN Creatinine Ratio 14.8; Bilirubin Total 0.7 mg/dL (0.2-1.0); Calcium 8.2 mg/dL (8.5-10.1); Carbon Dioxide 25.8 mmol/L (21.0-32.0); Chloride 103 mmol/L (98-107); Estimated GFR (African America >60 (>=60); Estimated GFR (Non-African Ame >60 (>=60); Globulin 3.2 g/dL; Glucose 115 mg/dL (74-106); Potassium 3.6 mmol/L (3.5-5.1); Sodium 138 mmol/L (136-145); Total Protein 5.9 g/dL (6.4-8.2)
[2023-10-15] MEDS: ATORVASTATIN CALCIUM 10 MG TABLET PO (08:52)
[2023-10-15] MEDS: APIXABAN 5 MG TABLET PO (08:53)
[2023-10-15] MEDS: METOPROLOL TARTRATE 25 MG TABLET PO (08:53)
[2023-10-15] MEDS: TRELEGY ELLIPTA 1 EACH IH (09:16)
--- NOTE | 2023-10-15 11:48 | PM.DS1 ---
DS: Providers Provider Date of admission: 10/13/23 18:45 Primary care physician: Shanell Craig MD Consults: 10/14/23 07:23 Occupational Therapy Eval and Treat Routine Reason for consultation: Ambulatory dysfunction/weakness Physical Therapy Eval and Treat Routine Reason for consultation: Ambulatory dysfunction/weakness 10/14/23 11:15 Consult to Cardiology Routine Reason for consultation: Abnormal rhythm Has provider been notified: No Attending physician on discharge: Shaikh Jaron Discharging clinician: Shaikh Jaron Anticipated date of discharge: 10/15/23 DS: Diagnosis Discharge Diagnosis (1) Atrial flutter with rapid ventricular response: Assessment and plan: New onset, Aflutter with RVR. Rate poorly controlled. No improvement with IV/PO lopressor. Was also given IV digoxin q6H for 4 doses. Stable hemodynamics. Cardiology consult appreciated. Will transfer to [facility] for TESS/CV Started on Eliquis 10/14/23 for stroke px. (2) Chronic systolic heart failure: Assessment and plan: 2D ECHO revealed Severely reduced EF 20-25% New diagnosis. Will defer medications for HF until Aflutter is taken care of. Likely tachycardia induced cardiomyopathy. (3) Sepsis: Assessment and plan: Resolved. On rocephin Qualifiers: Sepsis acute organ dysfunction status: without acute organ dysfunction Sepsis type: Escherichia coli Qualified Code(s): A41.51 - Sepsis due to Escherichia coli [E. coli] (4) Acute pyelonephritis: Assessment and plan: Due to E coli. on rocephin. F/u sensitivity. (5) COPD (chronic obstructive pulmonary disease): Assessment and plan: Chronic smoker. Stable, no wheezing. In trelegy. C/w same. Albuterol as needed Qualifiers: COPD type: unspecified COPD Qualified Code(s): J44.9 - Chronic obstructive pulmonary disease, unspecified (6) Hypercholesteremia: Assessment and plan: C/w statin DS: Summary Hospital Course Hospital Course: 8 y o male presented with nausea, intractable vomiting along with right sided back pain for past few days. His work up revealed Bilateral pyelonephritis and was admitted overnight for monitoring and IV abx. He was also noted to be in Aflutter with RVR. Patient's HR remained persistent in 130 range with no response to IV cardizem, IV lopressor, PO lopressor and IV digoxin. 2D ECHO to assess cardiac structure revealed severely reduced EF -20%, no WMA. Cardiology consulted - recommended transfer to [facility] for TESS/CV Patient has stable hemodynamics, asymptomatic. Started on Eliquis for stroke px Infection w/u - showed growth of E coli in Urine - on rocephin for it. Stable for transfer Status at Discharge Functional status at discharge: independent ambulation Overall status at discharge: patient is not back to baseline Time Spent with Patient Time attestation: Total time spent providing and/or coordinating discharge services: Time spent: greater than 30 minutes Exam Constitutional Vital Signs, click to edit/add: Last Vital Signs Temp 98.0 F 10/15/23 07:00 Pulse 135 H 10/15/23 09:46 Resp 16 10/15/23 07:00 BP 100/57 10/15/23 07:00 Pulse Ox 93 L 10/15/23 09:17 O2 Del Method Room Air 10/15/23 09:17 Documenting provider has reviewed patient's vital signs: yes Common normals: no apparent distress and oriented x3 General appearance: cooperative Respiratory Common normals: normal respiratory effort and clear to auscultation bilaterally Effort & inspection: able to speak in complete sentences Auscultation: clear to auscultation bilaterally Cardio Common normals: S1 normal heart sound and S2 normal heart sound Rate: tachycardic Heart sounds: S1 normal and S2 normal GI Common normals: Normal to inspection, nondistended, normoactive bowel sounds present, soft to palpation, non-tender and no hepatosplenomegaly Palpation: soft and no hepatosplenomegaly Neuro Common normals: oriented x3, moves all extremities and no focal motor deficits DS: Data Data Completed and Pending Labs on day of discharge: Labs from last 24 hours 10/15/23 10/14/23 04:26 04:02 WBC 7.9 RBC 3.83 L Hgb 12.7 L Hct 38.9 L MCV 101.6 H MCH 33.2 MCHC 32.6 RDW 12.9 Plt Count 242 MPV 10.4 Neut % (Auto) 43.4 Lymph % (Auto) 36.2 Alexander % (Auto) 11.3 Eos % (Auto) 7.7 H Baso % (Auto) 0.8 Neut # (Auto) 3.4 Lymph # (Auto) 2.9 Alexander # (Auto) 0.9 H Eos # (Auto) 0.6 Baso # (Auto) 0.1 Abs Immat Gran (auto) 0.05 H Imm/Tot Granulo (auto) 0.6 H Sodium 138 Potassium 3.6 Chloride 103 Carbon Dioxide 25.8 Anion Gap 12.8 BUN 12.0 Creatinine 0.81 Est GFR ( Amer) >60 Est GFR (Non-Af Amer) >60 BUN/Creatinine Ratio 14.8 Glucose 115 H Calcium 8.2 L Total Bilirubin 0.7 AST 15 ALT 15 L Alkaline Phosphatase 59 Total Protein 5.9 L Albumin 2.7 L Globulin 3.2 Albumin/Globulin Ratio 0.8 TSH & Free T4 Interp 2.460 Preliminary micro results at discharge 10/13/23 17:05 Urine Culture - Preliminary Urine,Clean Catch Escherichia coli Discharge Plan Discharge Disposition: Xfer Acute [facility] Condition: Good Discharge location: [facility], accepting physician is Dr Rosas
--- NOTE | 2023-10-15 11:49 | CM.NOTE ---
Rounds made with Dr. Salmeron, discussed with pt transfer for Cardioversion d/t unable to rate control with medication. Dr. Salmeron also discussed echo results. Both pt and verbalize understanding and are okay for transfer.
--- NOTE | 2023-10-15 13:57 | ECG_ITS ---
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
== END 2023-10-15 16:10 | disposition short-term general hospital (02) | DRG 872 ==
LOC: ER 18:40 → ICU 19:18
PROVIDERS: Admitting Provider Internal Medicine; Emergency Provider Emergency Medicine; PCP Family Medicine; Visit Provider Internal Medicine
DX: A41.51 Sepsis due to Escherichia coli [E. coli] (principal); N10 Acute pyelonephritis; E87.1 Hypo-osmolality and hyponatremia; I48.92 Unspecified atrial flutter; I50.22 Chronic systolic (congestive) heart failure; R00.0 Tachycardia, unspecified; J44.9 Chronic obstructive pulmonary disease, unspecified; E78.00 Pure hypercholesterolemia, unspecified; F17.210 Nicotine dependence, cigarettes, uncomplicated; Z79.899 Other long term (current) drug therapy; Z88.8 Allergy status to other drugs, medicaments and biological substances; Z91.040 Latex allergy status; Z82.3 Family history of stroke; Z82.5 Family history of asthma and other chronic lower respiratory diseases; Z82.49 Family history of ischemic heart disease and other diseases of the circulatory system
CPT/HCPCS: 36415; 71045; 74177; 80048; 80053; 80076; 81001; 82150; 83605; 83690; 83735; 84443; 84484; 85025; 87040; 87086; 87150; 87186; 93005; 93306; 93356; 94640; 94761; 96365; 96366; 96372; 96375; 96376; 99285; Q3014; Q9967

== ENCOUNTER 2023-11-06 15:24 | Outpatient (RCR) | payer MEDICARE, SELFPAY ==
--- NOTE | 2023-11-07 11:46 | CR1_ITS ---
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
== END 2023-11-07 16:56 | disposition home or self-care (01) ==
LOC: CR 15:24
PROVIDERS: PCP Family Medicine; Visit Provider Internal Medicine Cardiovascular Disease
DX: I50.9 Heart failure, unspecified (principal)
CPT/HCPCS: 93798

== ENCOUNTER 2023-12-15 16:21 | Outpatient (OUT) | payer MEDICARE, SELFPAY ==
--- OUTSIDE RECORDS SUMMARY | 2023-12-15 16:40 | XMS_ITS | CCD ---
Author Name Unknown Address [address] [place] [address] Organization [facility] Care Team Providers Care Master [employer] Name Role Phone Elle Cortes MD Primary Care Provider NOBLET JENNI, JENNI Attending Unavailable HUNTER CORTES Referring Unavailable FOSSELMAN, ELLE D Primary Care Unavailable NOBLET JENNI, JENNI Attending Unavailable HUNTER CORTES Referring Unavailable FOSSELMAN, ELLE D Primary Care Unavailable NOBLET JENNI, JENNI Attending Unavailable HUNTER CORTES Referring Unavailable FOSSELMAN, ELLE D Primary Care Unavailable RHONDA KAISER Attending Unavailable FOSSELMAN, ELLE D Primary Care Unavailable NOBLET JENNI, JENNI Attending Unavailable HUNTER CORTES Referring Unavailable FOSSELMAN, ELLE D Primary Care Unavailable NOBLET JENNI, JENNI Attending Unavailable HUNTER CORTES Referring Unavailable FOSSELMAN, ELLE D Primary Care Unavailable RHONDA KAISER Referring Unavailable FOSSELMAN, ELLE D Primary Care Unavailable NOBLET JENNI, JENNI Attending Unavailable HUNTER CORTES Referring Unavailable FOSSELMAN, ELLE D Primary Care Unavailable NOBLET JENNI, JENNI Attending Unavailable HUNTER CORTES Referring Unavailable FOSSELMAN, ELLE D Primary Care Unavailable TIANA BROWN~[id number], TIANA BROWN Attending Unavailable JOSHUA, NEELAY S Referring Unavailable FOSSELMAN, ELLE D Primary Care Unavailable STORM VALDES Attending Unavailabl e JOHSUA, NEELAY S Referring Unavailable FOSSELMAN, ELLE D Primary Care Unavailable STORM VALDES Attending Unavailabl e JOSHUA, NEELAY S Referring Unavailable FOSSELMAN, ELLE D Primary Care Unavailable TIANA BROWN~[id number], TIANA BROWN Attending Unavailable JOSHUA, NEELAY S Referring Unavailable FOSSELMAN, ELLE D Primary Care Unavailable AVA GODFREY Attending Unavailable ELLE CORTES Primary Care Unavailable Shanell rCaig Unavailable Irma Ontiveros Unavailable Shanell Craig Primary Care Unavailable Irma Ontiveros Attending Unavailable Irma Ontiveros Admitting Unavailable Tima Osorio Unavailable LALIT EGAN Attending Unavailable TAMIR, HANI Referring Unavailable TAMIR, HANI Referring Unavailable TAMIR, HANI Referring Unavailable [id number] Referring Unavailable TAMIR, HANI Admitting Unavailable TAMIR, HANI Attending Unavailable TAMIR, HANI Referring Unavailable ARNOLDBYRONMACARIO JHAITLANA Briseyda Referring Unavailabl e TAMIR, HANI Referring Unavailable TAMIR, HANI Referring Unavailable TAMIR, HANI Referring Unavailable TAMIR, HANI Referring Unavailable Allergies Allergy Classification Reported Allergen(s) Allergy Type Date of Onset Reaction(s) Facility (20 sources) Adenosine; Translations: [ADENOSINE] Drug Allergy 08-23-2021 Shortness of breath, anaphylaxis [facility] (20 sources) Latex; Translations: [LATEX] Drug Allergy 08-23-2021 Shortness of breath [facility] (11 sources) Ibuprofen; Translations: [IBUPROFEN] Drug Allergy 10-31-2021 Shortness of breath [facility] (11 sources) valsartan; Translations: [VALSARTAN] Drug Allergy 10-31-2021 [facility] Medications Current Medications Medication Drug Class(es) Dates Sig (Normalized) Sig (Original) 30 ACTUAT fluticasone furoate 0.2 MG/ACTUAT / umeclidinium 0.0625 MG/ACTUAT / vilanterol 0.025 MG/ACTUAT Dry Powder Inhaler [Trelegy] (1 source) Trelegy Ellipta 200-62.5-25 MCG/ACT 1 puff Inhalation 2-3 times per day Active 8 hr acetaminophen 650 mg extended release oral tablet (6 sources) acetaminophen (TYLENOL 8 HOUR) 650 mg 8 hr tablet Take by mouth. 0 Active [id number] 200 actuat albuterol 0.09 mg/actuat metered dose inhaler (20 sources) beta2-Adrenergic Agonist Start: 11-14-2022 take 2 puff(s) by inhalation twice daily albuterol HFA (PROAIR HFA ; PROVENTIL HFA ; VENTOLIN HFA) 90 mcg/actuation inhaler Indications: Chronic obstructive pulmonary disease, unspecified COPD type ([facility]) Inhale 2 puffs 2 (two) times a day. 6.7 g 3 11/14/2022 Active Start: 10-10-2022 End: 11-14-2022 take 2 puff(s) by inhalation every four to six hours as needed for wheezing albuterol HFA (ProAir HFA) 90 mcg/actuation inhaler Inhale 2 puffs every 4 to 6 hours as needed for wheezing 8.5 g 4 10/10/2022 11/14/2022 Discontinued Start: 09-05-2021 take 2 puff(s) by mo uth every four to six hours as needed for wheezing albuterol HFA (ProAir HFA) 90 mcg/actuation inhaler Inhale 2 puffs by mouth every 4 to 6 hours as needed for wheezing. 8.5 g 3 09/05/2021 Active Start: 09-04-2021 End: 11-14-2022 take 2 puff(s) by mouth every four to six hours as needed for wheezing albuterol HFA (PROAIR HFA ; PROVENTIL HFA ; VENTOLIN HFA) 90 mcg/actuation inhaler INHALE 2 PUFFS BY MOUTH EVERY 4 TO 6 HOURS NEEDED FOR WHEEZING 8.5 g 4 09/04/2021 Active take 1 puff(s) by in halation every four hours as needed Albuterol Sulfate HFA 108 (90 Base) MCG/ACT 1 puff as needed Inhalation every 4 hrs Active take 1 puff(s) by in halation every four hours as needed Albuterol Sulfate HFA 108 (90 Base) MCG/ACT 1 puff as needed Inhalation every 4 hrs Active Albuterol Sulfat e HFA Active albuterol 0.833 mg/ml / ipratropium bromide 0.167 mg/ml inhalation solution (20 sources) Anticholinergic, beta2-Adrenergic Agonist Start: 04-18-2022 End: 11-14-2022 ipratropium-albuteroL (DUONEB) 0.5-2.5 mg/3 mL nebulizer solution Indications: Chronic obstructive pulmonary disease, 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 270 mL 3 11/14/2022 Active take 3 mL by inhalat ion every six hours as needed Ipratropium-Albuterol 0.5-2.5 (3) MG/3ML 3 mL as needed Inhalation every 6 hrs for 30 days DX COPD J44.9 Active amoxicillin 875 mg / clavulanate 125 mg oral tablet (1 source) Penicillin-class Antibacterial Start: 07-12-2021 End: 07-12-2022 take 1 tablet by mouth every twelve hours amoxicillin-clavulanate (AUGMENTIN) 875-125 mg per tablet TAKE 1 TABLET BY MOUTH EVERY 12 HOURS FOR 10 DAYS 20 tablet 0 07/12/2021 07/12/2022 Active apixaban (5 sources) Factor Xa Inhibitor Apixaban 5 M G 1 tab;et twice a day Active Aspirin (5 sources) Platelet Aggregation Inhibitor, Nonsteroidal Anti-inflammatory Drug Aspir-Low 81 MG 1 ta blet once a day Active atorvastatin 10 mg oral tablet (20 sources) HMG-CoA Reductase Inhibitor Start: 10-31-2021 take 1 tablet by mouth once daily atorvastatin (LIPITOR) 10 mg tablet Take 1 tablet (10 mg total) by mouth 1 (one) time each day. 30 tablet 5 10/07/2022 Active azithromycin 250 mg oral tablet (7 sources) Macrolide Antimicrobial Start: 11-14-2022 azithromycin (Zithromax Z-Piyush) 250 mg tablet Indications: Chronic obstructive pulmonary disease, unspecified COPD type (CMS/HCC) Take 2 tablets (500 mg) the first day, then 1 tablet (250 mg) daily for 4 days. 6 tablet 3 11/14/2022 Active Start: 07-12-2021 End: 07-12-2022 take 1 tablet by mouth once daily azithromycin (ZITHROMAX) 250 mg tablet TAKE 1 TABLET BY MOUTH EVERY DAY FOR 5 DAYS 6 tablet 0 07/12/2021 07/12/2022 Active cetirizine hydrochloride 10 mg oral tablet (10 sources) Histamine-1 Receptor Antagonist take 1 tablet by mouth every twenty-four hours ZyrTEC Allergy 10 MG 1 tablet Orally Once a day Active ZyrTEC Allergy A ctive dapagliflozin (5 sources) Sodium-Glucose Cotransporter 2 Inhibitor Dapagliflozin Propanediol 10 MG 1 tablet once a day Active Dexamethasone / Tobramycin (10 sources) Aminoglycoside Antibacterial, Corticosteroid take 1 drop(s) into the eye(s) every six hours TobraDex 0.3-0.1 % 1 drop into affected eye Ophthalmic every 6 hrs for 7 days Active take 1 drop(s) into the eye(s) every six hours TobraDex 0.3-0.1 % 1 drop into affected eye Ophthalmic every 6 hrs for 7 days Active esomeprazole 40 mg delayed release oral capsule (16 sources) Proton Pump Inhibitor Start: 01-28-2018 esomeprazole (NexIUM ) [address] capsule 1 capsule 0 01/28/2018 Active Esomeprazole Mag nesium 20 MG 1 tablet every 2-3 days Active Fish Oils (7 sources) take 1 capsule by mouth once daily Fish Oil 1000 MG 1 capsule Orally Once a day Active fluticasone propionate 0.05 mg/actuat metered dose nasal spray (10 sources) Corticosteroid take 1 spray(s) nasal route once daily Fluticasone Propionate 50 MCG/ACT 1 spray in each nostril Nasally Once a day Active take 1 spray(s) nasal route once daily Fluticasone Propionate 50 MCG/ACT 1 spray in each nostril Nasally Once a day Active Fluticasone Furo ate Active tfmigjuwcgq-zktghhackofz-hxi anterol (Trelegy Ellipta) 200-62.5-25 mcg inhaler (20 sources) Start: 11-15-2022 take 1 puff(s) by mouth once daily cpswigjgezn-uhlqxawcbwki-eczjllshqh (Trelegy Ellipta) 200-62.5-25 mcg inhaler Inhale 1 puff (200 mcg total) by mouth 1 (one) time each day. 60 each 4 11/15/2022 Active Start: 10-10-2022 take 1 puff(s) by mouth once daily bzpjrrwagjb-gzwceixnsfpe-uirlvktxza (Raphael legy Ellipta) 200-62.5-25 mcg inhaler Inhale 1 puff by mouth once daily 60 each 4 10/10/2022 Active Start: 05-30-2022 take 1 puff(s) by mouth once daily erhragpevnk-birubrhzzlwd-xorarejkdu (Raphael legy Ellipta) 200-62.5-25 mcg inhaler Inhale 1 puff by mouth daily 60 each 4 05/30/2022 Active Start: 04-18-2022 take 1 puff(s) by mouth once daily rjbactovsdu-hbdaqsarqxmz-xsncyrprtr (Raphael legy Ellipta) 200-62.5-25 mcg inhaler Inhale 1 puff by mouth daily 60 each 4 04/18/2022 Active Start: 12-27-2021 End: 11-15-2022 take 1 puff(s) by mouth once daily zsvqecspuuo-gktnjfcdqzra-jsfkkniiwp (Raphael legy Ellipta) 200-62.5-25 mcg inhaler Inhale 1 puff (200 mcg total) by mouth 1 (one) time each day. 60 each 4 12/27/2021 11/15/2022 Discontinued (Reorder) Start: 12-27-2021 take 1 puff(s) by mouth once daily iweclqcuhvj-rnupgdwdtagj-jjdepfmujv (Raphael legy Ellipta) 200-62.5-25 mcg inhaler Inhale 1 puff (200 mcg total) by mouth 1 (one) time each day. 60 each 4 12/27/2021 Active Start: 12-27-2021 take 1 puff(s) by inhalation once daily zvigyhlfemx-cnndsvfslcss-avoxcokeau (Raphael legy Ellipta) 200-62.5-25 mcg inhaler Inhale 1 puff (200 mcg total) 1 (one) time each day. 60 each 4 12/27/2021 Active ibuprofen 200 mg oral tablet (6 sources) Nonsteroidal Anti-inflammatory Drug ibuprofen (ADVIL, MOTRIN) 200 mg tablet Take by mouth. 0 Active Ipratropium (3 sources) Anticholinergic Ipratropium Brom rosendo Active methylPREDNISolone (10 sources) Corticosteroid Start: 022 methylPREDNISolone (MEDROL DOSPAK) 4 mg tablet Take as directed on packaging instructions. 21 each 0 04/10/2022 Active Start: 01-15-2022 methylPREDNISo lone (MEDROL DOSPAK) 4 mg tablet take as directed on packaging instructions. 21 tablet 0 01/15/2022 Active 24 hr metoprolol succinate 25 mg extended release oral tablet (5 sources) beta-Adrenergic Lauren take 1 tablet by mouth every twenty-four hours Metoprolol Succinate ER 25 MG 1 tablet once a day Active montelukast 10 mg oral tablet (20 sources) Leukotriene Receptor Antagonist Start: 022 take 1 tablet by mouth once daily montelukast (SINGULAIR) 10 mg tablet Take 1 tablet (10 mg total) by mouth 1 (one) time each day. 90 tablet 3 10/10/2022 Active Multi For Him - (7 sources) Multi For Him - as directed Orally Active multivitamin capsule (6 sources) Start: 007 multivitamin capsule 1 (one) time each day at the same time. 0 06/08/2007 Active predniSONE 10 mg oral tablet (12 sources) Start: 023 predniSONE 10 MG 4 tabs po daily x 2 days, 3 tabs daily x 2 days, 2 tabs daily x 2 days, 1 tab daily x 2 days Orally Once a day for 8 Jun, Active Start: 11-06-2022 End: 11-27-2022 take 4 tablets by mouth once daily, then take 3 tablets by mouth once daily, then take 2 tablets by mouth once daily, then take 1 tablet by mouth once daily predniSONE (DELTASONE) 10 mg tablet Indications: Chronic obstructive pulmonary disease, unspecified COPD type ([facility]) Take 4 tablets (40 mg total) by mouth 1 (one) time each day for 3 days, THEN 3 tablets (30 mg total) 1 (one) time each day for 3 days, THEN 2 tablets (20 mg total) 1 (one) time each day for 3 days, THEN 1 tablet (10 mg total) 1 (one) time each day for 3 days. 30 each 3 11/14/2022 11/27/2022 Active Start: 07-12-2021 End: 07-12-2022 take 2 tablets by mouth once daily predniSONE (DELTASONE) 20 mg tablet TAKE 2 TABLETS BY MOUTH EVERY DAY FOR 5 DAYS 10 tablet 0 07/12/2021 07/12/2022 Active spironolactone 25 mg oral tablet (5 sources) Aldosterone Antagonist take 1 tablet by mouth every twenty-four hours Spironolactone 25 MG 1 tablet once a day Active traMADol hydrochloride 50 mg oral tablet (16 sources) Opioid Agonist Start: 022 take 1 tablet by mouth every six hours as needed traMADoL (ULTRAM) 50 mg tablet take 1 tablet by mouth every 6 hours as needed for pain 20 tablet 0 04/22/2022 Active take 1 tablet by scott th every twenty-four hours traMADol HCl 50 MG 1 tablet as needed Orally Once a day Active Trelegy Ellipta (3 sources) Trelegy Ellipta Active trelegy ellipta 200-62.5-25 mcg/act aerosol powder breath activated (6 sources) take 1 puff(s) by inhalation once daily Trelegy Ellipta 200-62.5-25 MCG/ACT 1 puff Inhalation Once a day for 30 days Active Trelegy Ellipta 200-62.5-25 MCG/ACT 1 puff Inhalation 2-3 times per day Active Trelegy Ellipta 200-62.5-25 MCG/ACT 1 puff Inhalation 2-3 times per day for 30 days Active 30 actuat umeclidinium 0.0625 mg/actuat / vilanterol 0.025 mg/actuat dry powder inhaler (20 sources) Anticholinergic, beta2-Adrenergic Agonist Start: 01-25-2021 take 1 puff(s) by mouth once daily umeclidinium-vilanteroL (Anoro Ellipta) 62.5-25 mcg/actuation inhaler Inhale 1 puff by mouth 1 (one) time each day. 60 each 6 08/23/2021 Active Completed/Discontinued Medications Medication Drug Class(es) Dates Sig (Normalized) Sig (Original) budesonide 0.25 mg/ml inhalation suspension (15 sources) Corticosteroid Start: 12-28-2020 End: 11-14-2022 take 2 mL by inhalation twice daily budesonide (PULMICORT) 0.5 mg/2 mL nebulizer solution Inhale 2 mL (0.5 mg total) by nebulization 2 (two) times a day. 360 mL 0 08/23/2021 11/14/2022 Discontinued cyclobenzaprine hydrochloride 5 mg oral tablet (9 sources) Muscle Relaxant Start: 01-15-2022 End: 11-14-2022 take 1-2 tablets by mouth once daily at bedtime cyclobenzaprine (FLEXERIL) 5 mg tablet Take 1 to 2 tablet(s) by mouth once a day at bedtime for 10 days 20 tablet 0 10/07/2022 11/14/2022 Discontinued docosahexaenoic acid 120 mg / eicosapentaenoic acid 180 mg oral capsule (1 source) End: 11-14-2022 docosahexaenoic acid-epa 120-180 mg capsule famotidine 20 mg oral tablet (1 source) Histamine-2 Receptor Antagonist Start: 12-03-2019 End: 11-14-2022 famotidine (PEPCID) 20 mg tablet Take 1 tablet (20 mg total) by mouth. 0 12/03/2019 11/14/2022 Discontinued Problems Problem Classification Problem Date Documented Da te Episodic/Chronic Cardiac dysrhythmias (16 sources) Atrial flutter; Translations: [Unspecified atrial flutter] Onset: 10-15-2023 Chronic Chronic obstructive pulmonary disease and bronchiectasis (20 sources) Chronic obstructive lung disease; Translations: [Chronic obstructive pulmonary disease, unspecified] Onset: 03-03-2023 Chronic Congestive heart failure; nonhypertensive (10 sources) Chronic systolic heart failure; Translations: [Chronic systolic (congestive) heart failure] Onset: 10-15-2023 Chronic Inflammation; infection of eye (except that caused by tuberculosis or sexually transmitteddisease) (1 source) Unspecified acute conjunctivitis, unspecified eye Episodic Other nervous system disorders (1 source) Other chronic pain; Translations: [Other chronic pain] Onset: 11-05-2022 Chronic Other non-traumatic joint disorders (6 sources) Chronic pain of left upper limb; Translations: [Pain in left shoulder] Episodic Other non-traumatic joint disorders (6 sources) Shoulder pain; Translations: [Pain in left shoulder] Episodic Other non-traumatic joint disorders (3 sources) Pain in left shoulder; Translations: [Pain in left shoulder] Onset: 02-06-2022 Episodic Residual codes; unclassified (2 sources) Tobacco use; Translations: [Tobacco use] Onset: 10-22-2023 Episodic Residual codes; unclassified (2 sources) Other specified health status; Translations: [Other specified health status] Onset: 10-15-2023 Episodic Septicemia (except in labor) (1 source) Sepsis due to Escherichia coli [E. coli] Episodic Spondylosis; intervertebral disc disorders; other back problems (8 sources) Cervical spondylosis without myelopathy; Translations: [Spondylosis without myelopathy or radiculopathy, cervical region] Onset: 10-30-2022 Chronic Spondylosis; intervertebral disc disorders; other back problems (18 sources) Neck pain; Translations: [Cervicalgia] Onset: 02-06-2022 Episodic Substance-related disorders (10 sources) Nicotine dependence; Translations: [Nicotine dependence, unspecified, uncomplicated] Onset: 11-18-2022 Chronic Urinary tract infections (2 sources) Acute pyelonephritis; Translations: [Acute pyelonephritis] Onset: 10-15-2023 Episodic Results Test Name Value Interpretation Reference Range Facility CT lung screeningon 11-27-[address] [facility] Main [place] [address] [place] [address] CT Scan Report Signed Patient: Alejandro Maradiaga MR#: [id number] 530 : 1955 Acct:[id number] Age/Sex: 68 / M ADM Date: 11/27/23 Loc: [facility] Room: Type: [facility] Attending Dr: Irma Ontiveros MD Copies to: Irma Ontiveros MD Ordering Provider: Irma Ontiveros MD Date of Service: 11/27/23 CT/CT lung screening: J44.9 CT CHEST WITHOUT CONTRAST, LOW DOSE SCREENING: CLINICAL DATA: A 68-year old current smoker, smoking for 40 pack-years. COMPARISON: None TECHNIQUE: Noncontrast axial CT scan images of the chest were obtained under the low dose screening CT protocol. Coronal and sagittal reconstructed images were also submitted. FINDINGS: Mediastinum : Suboptimal evaluation due to low-dose technique. Thoracic aorta appears normal in caliber. Pulmonary trunk appears nondilated. No pericardial effusion. No lymphadenopathy. The esophagus is grossly unremarkable. Lungs: No focal consolidation, pneumothorax or pleural effusion. Trachea and distal airways appear patent. Diffuse bronchial wall thickening. Emphysema with associated scarring. 14 mm noncalcified pulmonary nodule right lower lobe series 2 image 135. Upper abdomen: No acute findings. Bony thorax and chest wall: Soft tissues surrounding the chest wall demonstrate no acute findings. Osseous structures demonstrate degenerative change. CT/CT lung screening IMPRESSION: 14 MM PULMONARY NODULE RIGHT LOWER LOBE. LUNG - RADS Version 1.0 Assessment: Category 4A, Suspicious (Findings for which additional diagnostic testing is recommended). Management: 3 Month LDCT; PET/CT may be used when there is a > 8mm solid component. Impression dictated by: Asim Davidson Jr., D.ORicky11/27/2023 2:10 PM Dictation Location: [place] [address] Transcribed By: [facility] 11/27/23 1410 Dictated By: Asim Davidson Jr, DO 11/27/23 1406 Signed By: 11/27/[address] [facility] Follow-Upon 10-22-2023 Follow-Up [id number] Alejandro Maradiaga 1955 M Date Provider Department Center 10/22/2023 LALIT LARES [facility] Family History Problem Relation Age of Onset Stroke Mother Family Status - Relation Status Age at Mother Level of Service:93605 [place] OFFICE/OUTPATIENT ESTABLISHED MOD MDM 30-39 MIN Reason for Visit and Comments: Hospital Follow-up [832] Atrial Flutter [101] Congestive Heart Failure [127] [facility] 36on 10-20-2023 36 Discharge date: 10/18/23 Call date: 10/20/23 Spoke with: patient HF Follow-up date: 10/22/23 Med reconciliation completed: yes Questions/Concerns: Home meds reviewed with pt. Pt denied any CP or SOB. Pt stated he has been taking his daily weights as well as HR and SpO2. Pt stated he will be at his follow up appt. Dry[employer] Application Supervisor instructed pt to bring a log of weights and HR to follow up appt. [facility] Documentationon 10-20-2023 Documentation [id number] Alejandro Maradiaga 1955 M Date Provider Department Center 10/20/2023 [facility] No family history on file Reason for Visit and Comments: HF inpatient satisfaction survey sent. [Other] [facility] Telephoneon 10-20-2023 Telephone [id number] Alejandro Maradiaga 1955 M Date Provider Department Center 10/20/2023 [facility]ARR[facility] No family history on file Reason for Visit and Comments: HF post discharge call [Other] Normal [facility] 30on 10-18-2023 30 The patient is Moderately Stable - Low risk of patient condition declining or worsening The patient's goals for the shift include comfort and rest The clinical goals for the shift include vss Over the shift, the patient continued to make progress toward the following goals. Normal [facility] APTTon 10-18-2023 ACTIVATED PARTIAL THROMBOPLASTIN TIME IN PPP BY COAGULATION ASSAY 33.7 Seconds Normal 25.0-35.0 [facility] Comment on above: Result Comment: Clin ical significance of the APTT is questionable in the presence of heparin. Performed By: #### L AB18 #### [facility] ([facility]) [address] [place] [address] CBCon 10-18-2023 Erythrocyte distribution width (RBC) [Ratio] 13.2 % Normal 11.5-15.0 [facility] Comment on above: Performed By: #### L AB18 #### [facility] ([facility]) [address] [place] [address] ERYTHROCYTE MEAN CORPUSCULAR HEMOGLOBIN CONCENTRATION (G/DL) BY AUTOMATED 34.1 g/dL Normal 32.0-35.0 [facility] Comment on above: Performed By: #### L AB18 #### [facility] ([facility]) [address] [place] [address] Hematocrit (Bld) [Volume fraction] 45.5 % Normal 39.0-55.0 [facility] Comment on above: Performed By: #### L AB18 #### [facility] ([facility]) [address] [place] [address] Hemoglobin (Bld) [Mass/Vol] 15.5 g/dL Normal 13.0-17.0 [facility] Comment on above: Performed By: #### L AB18 #### [facility] ([facility]) [address] [place] [address] MCH (RBC) [Entitic mass] 33.1 pg High 27.0-33.0 [facility] Comment on above: Performed By: #### L [id number] #### [facility] ([facility]) [address] [place] [address] MCV (RBC) [Entitic vol] 97.2 fL Normal 82.0-98.0 [facility] Comment on above: Performed By: #### L [id number] #### [facility] ([facility]) [address] [place] [address] PLATELETS (10*3/UL) IN BLOOD AUTOMATED COUNT 318 10*3/uL Normal 150-400 [facility] Comment on above: Performed By: #### L AB18 #### [facility] ([facility]) [address] [place] [address] RBC (Bld) [#/Vol] 4.68 10*6/uL Normal 4.20-5.70 [facility] Comment on above: Performed By: #### L AB18 #### [facility] ([facility]) [address] [place] [address] WBC (Bld) [#/Vol] 7.34 10*3/uL Normal 4.00-10.60 [facility] Comment on above: Performed By: #### L AB18 #### [facility]) [address] [place] [address] DIGOXIN LEVELon 10-18-2023 DIGOXIN (NG/ML) IN SER/PLAS 1.1 ng/mL Normal 0.7-2 [facility] Comment on above: Performed By: #### L AB23 #### [facility]) [address] [place] [address] Documentationon 10-18-2023 Documentation [id number] Alejandro Maradiaga 1955 M Date Provider Department Center 10/18/202325347-PKBBOITYOLA KEANE. No family history on file Normal [facility] 30on 10-17-2023 30 The patient is Moderately Stable - Low risk of patient condition declining or worsening The patient's goals for the shift include sleep The clinical goals for the shift include VSS, NPO at 0000 Over the shift, the patient did make progress toward the following goals. Problem: Pain - Adult Goal: Verbalizes/displays adequate comfort level or baseline comfort level Outcome: Progressing Problem: Safety - Adult Goal: Free from fall injury Outcome: Progressing Problem: Discharge Planning Goal: Discharge to home or other facility with appropriate resources Outcome: Progressing Problem: Chronic Conditions and Co-morbidities Goal: Patient's chronic conditions and co-morbidity symptoms are monitored and maintained or improved Outcome: Progressing Problem: Cardiovascular - Adult Goal: Maintains optimal cardiac output and hemodynamic stability Outcome: Progressing Goal: Absence of cardiac dysrhythmias or at baseline Outcome: Progressing Problem: Skin/Tissue Integrity - Adult Goal: Skin integrity remains intact Outcome: Progressing Goal: Incisions, wounds, or drain sites healing without S/S of infection Outcome: Progressing Problem: Genitourinary - Adult Goal: Absence of urinary retention Outcome: Progressing Problem: Metabolic/Fluid and Electrolytes - Adult Goal: Electrolytes maintained within normal limits Outcome: Progressing Problem: Heart Failure diagnosis knowledge deficit Goal: Patient will verbalize understanding of how heart failure affects the body Outcome: Progressing Goal: Patient will verbalize understanding of how other conditions affect the heart Outcome: Progressing Problem: Fluid retention/overload Goal: Patient will be able to identify signs and symptoms of fluid retention Outcome: Progressing Problem: Heart failure medication adherence Goal: Consistently take heart failure medication as prescribed Outcome: Progressing Problem: Insufficient exercise regimen Goal: Patient will engage in physical activity safely Outcome: Progressing Problem: Heart failure progression and care needs Goal: Patient will verbalize understanding of heart failure progression Outcome: Progressing Problem: Heart failure maintenance Goal: Patient will not experience any symptoms of shortness of breath or body swelling over the next 3 months Outcome: Progressing Normal [facility] Tamir 10-17-2023 MICHELLE Patient: Alejandro Maradiaga Choose an anesthesia record to view details Clinical information reviewed: Tobacco Allergies Meds Problems Med Hx Surg Hx Fam Hx Soc Hx Physical Exam Airway Mallampati: III TM distance: >3 FB Neck ROM: full Cardiovascular Rhythm: regular Rate: normal Dental Pulmonary - normal exam Breath sounds clear to auscultation Abdominal - normal exam Abdomen: soft Anesthesia Plan ASA 4 other (Conscious sedation) Anesthetic plan and risks discussed with patient. Use of blood products discussed with patient who consented to blood products. Plan discussed with attending. Additional Equipment Requests Normal [facility] MICHELLE - Attestation signed by Alex Reyes MD at 10/18/2023 1:36 PM By using the attestations below, the signing clinician agrees that I have read and verify that the documentation has been personally reviewed by me and ensure that the documentation accurately reflects the encounter. GC: I personally saw this patient on the day of the encounter, performed the nelson portion(s) of the service and participated in the management and confirm the resident's documentation. Please note there may be an additional personal documentation from me. Patient: Alejandro Maradiaga Choose an anesthesia record to view details Clinical information reviewed: Tobacco Allergies Meds Problems Med Hx Surg Hx Fam Hx Soc Hx Physical Exam Airway Mallampati: III Cardiovascular - normal exam Dental Pulmonary - normal exam Abdominal - normal exam Anesthesia Plan ASA 3 other (Conscious sedation) Anesthetic plan and risks discussed with patient. Use of blood products discussed with patient who consented to blood products. Plan discussed with attending. Additional Equipment Requests Normal [facility] APTTon 10-17-2023 ACTIVATED PARTIAL THROMBOPLASTIN TIME IN PPP BY COAGULATION ASSAY 147.2 Seconds Critically high 25.0-35.0 [facility] Comment on above: Result Comment: Clin ical significance of the APTT is questionable in the presence of heparin. Performed By: #### L [id number] ####[facility] ([facility])[address] [place] [address] ACTIVATED PARTIAL THROMBOPLASTIN TIME IN PPP BY COAGULATION ASSAY 113.7 Seconds High 25.0-35.0 [facility] Comment on above: Result Comment: Clin ical significance of the APTT is questionable in the presence of heparin. Performed By: #### L [id number] ####[facility] ([facility])[address] [place] [address] BASIC METABOLIC PANELon 12-0 Anion gap [Moles/Vol] 12 mmol/L Normal 7-20 [facility] Comment on above: Performed By: #### L [id number] #### [facility] ([facility]) [address] [place] [address] Calcium [Mass/Vol] 9.2 mg/dL Normal 8.6-10.3 [facility] Comment on above: Performed By: #### L [id number] #### [facility] ([facility]) [address] [place] [address] Chloride [Moles/Vol] 104 mmol/L Normal 98-107 [facility] Comment on above: Performed By: #### L [id number] #### [facility] ([facility]) [address] [place] [address] CO2 [Moles/Vol] 24 mmol/L Normal 21-31 [facility] Comment on above: Performed By: #### L [id number] #### [facility] ([facility]) [address] [place] [address] Creatinine [Mass/Vol] 0.64 mg/dL Low 0.70-1.30 [facility] Comment on above: Performed By: #### L [id number] #### [facility] ([facility]) [address] [place] [address] GLOMERULAR FILTRATION RATE ML/MIN/1.73 SQ M.PREDICTED 103.1 mL/min/1.73m*2 Normal >60.0 [facility] Comment on above: Result Comment: The [facility]???s estimated glomerular filtration rate (eGFR) will no longer include consideration of race in its calculation. The National Kid[employer] Foundation???s eGFR Task Force developed new recommendations for the estimation of the glomerular filtration rate in the [place] They recommend immediate implementation of the new equation refit without the race variable in all laboratories because the calculation does not include race. In addition to not including race in the calculation and reporting, it included diversity in its development, and has acceptable performance characteristics and potential consequences that do not disproportionately affect any one group of individuals. Performed By: #### L [id number] #### [facility] ([facility]) [address] [place] [address] Glucose [Mass/Vol] 109 mg/dL High 70-100 [facility] Comment on above: Performed By: #### L [id number] #### [facility] ([facility]) [address] [place] [address] Potassium [Moles/Vol] 3.6 mmol/L Normal 3.5-5.1 [facility] Comment on above: Performed By: #### L [id number] #### [facility] ([facility]) [address] [place] [address] Sodium [Moles/Vol] 136 mmol/L Normal 136-145 [facility] Comment on above: Performed By: #### L [id number] #### [facility] ([facility]) [address] [place] [address] Urea nitrogen [Mass/Vol] 5 mg/dL Low 7-25 [facility] Comment on above: Performed By: #### L [id number] #### [facility] ([facility]) [address] [place] [address] UREA NITROGEN/CREATININE (MASS RATIO) IN SER/PLAS 7.[address] [facility] Comment on above: Performed By: #### L [id number] #### [facility] ([facility]) [address] [place] [address] CBCon 10-17-2023 Erythrocyte distribution width (RBC) [Ratio] 12.9 % Normal 11.5-15.0 [facility] Comment on above: Performed By: #### L [id number] ####[facility] ([facility])[address] [place] [address] ERYTHROCYTE MEAN CORPUSCULAR HEMOGLOBIN CONCENTRATION (G/DL) BY AUTOMATED 34.1 g/dL Normal 32.0-35.0 [facility] Comment on above: Performed By: #### L [id number] ####[facility] ([facility])[address] [place] [address] Hematocrit (Bld) [Volume fraction] 45.7 % Normal 39.0-55.0 [facility] Comment on above: Performed By: #### L [id number] ####[facility] ([facility])[address] [place] [address] Hemoglobin (Bld) [Mass/Vol] 15.6 g/dL Normal 13.0-17.0 [facility] Comment on above: Performed By: #### L [id number] ####[facility] ([facility])[address] [place] [address] MCH (RBC) [Entitic mass] 33.1 pg High 27.0-33.0 [facility] Comment on above: Performed By: #### L [id number] ####[facility] ([facility])[address] [place] [address] MCV (RBC) [Entitic vol] 96.8 fL Normal 82.0-98.0 [facility] Comment on above: Performed By: #### L [id number] ####[facility] ([facility])[address] [place] [address] PLATELETS (10*3/UL) IN BLOOD AUTOMATED COUNT 300 10*3/uL Normal 150-400 [facility] Comment on above: Performed By: #### L [id number] ####[facility] ([facility])[address] [place] [address] RBC (Bld) [#/Vol] 4.72 10*6/uL Normal 4.20-5.70 [facility] Comment on above: Performed By: #### L [id number] ####[facility] ([facility])[address] [place] [address] WBC (Bld) [#/Vol] 7.46 10*3/uL Normal 4.00-10.60 [facility] Comment on above: Performed By: #### L [id number] ####[facility] ([facility])[address] [place] [address] on 10-17-2023 H&P reviewed. The patient was examined and there are no changes to the H&P. Will prcoeed with coronary angiogram and right heart cath to further assess newly reduced EF. Procedures' details, risks and benefits discussed with the patient and he's agreeable. [facility] - Attestation signed by Alex Reyes MD at 10/18/2023 1:36 PM By using the attestations below, the signing clinician agrees that I have read and verify that the documentation has been personally reviewed by me and ensure that the documentation accurately reflects the encounter. GC: I personally saw this patient on the day of the encounter, performed the nelson portion(s) of the service and participated in the management and confirm the resident's documentation. Please note there may be an additional personal documentation from me. Reason for Consult: Atrial Flutter HPI: Alejandro Maradiaga is a 68 y.o. male presented emergency department as a transfer from [facility] for uncontrolled atrial flutter. Patient eventually presented to [facility] on 10/13/2020 treated with chief complaint of nausea vomiting flank pain. UA was consistent with urinary tract infection and patient was placed on Rocephin. Patient presented to outside hospital with HR in the 130s at that time and was found to have atrial flutter on EKG. Urine culture reportedly revealed E. coli and blood cultures remain negative. Patient remained in atrial flutter despite multiple doses of digoxin, patient was transferred for possible cardioversion by cardiology here at [facility]. Echocardiogram revealed atrial flutter with right bundle branch block and left axis deviation with a rate of 111 bpm. Upon transfer patient was found to have decreased magnesium at 1.6 decreased sodium 135 remarkable. Patient seen and examined at bedside this afternoon. Patient jared afebrile and stable, saturating well on room air. No acute events overnight. Patient endorsing palpations but otherwise no chest pain, orthopnea, PND, syncope, nor lightheadedness. Patient does endorse some cervical neck pain which is consistent with prior diagnosis of osteoarthritis. Cardiology ROS: GENERAL: Denies fever, chills, night sweats, weight loss. CARDIOVASCULAR: Endorses Palpitations. Denies chest pain, exertional dyspnea, orthopnea/PND, lower extremity edema, palpitations, lightheadedness/dizzi ness, syncope. RESPIRATORY: Denies SOB, coughing, wheezing GI: Denies abdominal pain, nausea/vomiting. PSYCH: Denies anxiety. Past Medical History He has no past medical history on file. Surgical History He has no past surgical history on file. Social History He reports that he has been smoking cigarettes. He started smoking about 43 years ago. He has a 7.50 pack-year smoking history. He has never used smokeless tobacco. No history on file for alcohol use and drug use. Family History No family history on file. Allergies Adenosine and Latex Medications Medications Prior to Admission Medication Sig Dispense Refill Last Dose albuterol 90 mcg/actuation inhaler Inhale 1 puff in the morning. atorvastatin (Lipitor) 10 mg tablet Take 10 mg by mouth in the morning. fluticasone-umeclidin -vilanter 200-62.5-25 mcg blister with device Inhale in the morning. ipratropium-albuteroL (Duo-Neb) 0.5-2.5 mg/3 mL nebulizer solution Take 3 mL by nebulization in the morning and at bedtime. 2.5mg base montelukast (Singulair) 10 mg tablet Take 10 mg by mouth at bedtime. Last Recorded Vitals Patient Vitals for the past 24 hrs: BP Temp Temp src Pulse Resp SpO2 Weight 10/17/23 1149 -- -- -- -- -- 97 % -- 10/17/23 1148 (!) 125/93 -- -- (!) 142 16 96 % -- 10/17/23 0853 151/81 -- -- (!) 140 -- -- -- 10/17/23 0825 151/81 36.3 ???C (97.3 ???F) Temporal 94 12 99 % -- 10/17/23 0819 -- -- -- 93 16 98 % -- 10/17/23 0405 118/68 36.7 ???C (98 ???F) -- 95 18 93 % 71.5 kg (157 lb 10.1 oz) 10/17/23 0000 116/53 -- -- 91 20 93 % -- 10/16/23 2350 -- -- -- 91 20 94 % -- 10/16/23 2322 120/85 -- -- (!) 138 17 95 % -- 10/16/232037 -- -- -- 96 19 -- -- 10/16/232009 130/64 36.6 ???C (97.9 ???F) -- 97 18 95 % -- 10/16/23 1603 144/79 36.2 ???C (97.2 ???F) Temporal 107 18 98 % -- Physical Examination: Physical Exam Constitutional: Appearance: Normal appearance. He is normal weight. HENT: Head: Normocephalic and atraumatic. Mouth/Throat: Mouth: Mucous membranes are moist. Pharynx: Oropharynx is clear. Eyes: Extraocular Movements: Extraocular movements intact. Pupils: Pupils are equal, round, and reactive to light. Cardiovascular: Rate and Rhythm: Rhythm irregular. Pulses: Normal pulses. Heart sounds: Normal heart sounds. Pulmonary: Effort: Pulmonary effort is normal. Breath sounds: Normal breath sounds. Abdominal: General: Abdomen is flat. Palpations: Abdomen is soft. Musculoskeletal: General: Normal range of motion. Cervical back: Normal range of motion and neck supple. Right lower leg: No edema. Left lower leg: No edema. Skin: General: Skin is warm and dry. Neurological: General: N (more content not included)... Normal [facility] MAGNESIUMon 10-17-2023 Magnesium [Mass/Vol] 2.0 mg/dL Normal 1.9-2.7 [facility] Comment on above: Performed By: #### L [id number] ####[facility] ([facility])[address] [place] [address] NURSNOTEon 10-17-2023 NURSNOTE Digoxin changed to oral, still holding med for HR under 60 per Cardiology, Chanabil, instruction Normal [facility] NURSNOTE Per Gonzalez, Cardiology, hold 500mcg of Digoxin, but continue 100mcg digoxin q6 order, hold if HR less than 100 Update: new orders are to hold if HR less than [address] [facility] TROPONIN Ion 10-17-2023 Troponin I.cardiac [Mass/Vol] 0.03 ng/mL Normal 0.00-0.04 [facility] Comment on above: Performed By: #### L [id number] ####[facility] ([facility])[address] [place] [address] Troponin I.cardiac [Mass/Vol] 0.03 ng/mL Normal 0.00-0.04 [facility] Comment on above: Performed By: #### L [id number] #### [facility] ([facility]) [address] [place] [address] 30on 10-16-2023 30 The patient is Moderately Unstable - Medium risk of patient condition declining or worsening The patient's goals for the shift include sleep The clinical goals for the shift include VSS, NPO at 0000 Over the shift, the patient made progress toward the following goals: Problem: Safety - Adult Goal: Free from fall injury Outcome: Progressing Problem: Discharge Planning Goal: Discharge to home or other facility with appropriate resources Outcome: Progressing Problem: Chronic Conditions and Co-morbidities Goal: Patient's chronic conditions and co-morbidity symptoms are monitored and maintained or improved Outcome: Progressing Problem: Cardiovascular - Adult Goal: Maintains optimal cardiac output and hemodynamic stability Outcome: Progressing Goal: Absence of cardiac dysrhythmias or at baseline Outcome: Progressing Problem: Skin/Tissue Integrity - Adult Goal: Skin integrity remains intact Outcome: Progressing Goal: Incisions, wounds, or drain sites healing without S/S of infection Outcome: Progressing Problem: Metabolic/Fluid and Electrolytes - Adult Goal: Electrolytes maintained within normal limits Outcome: Progressing Problem: Heart Failure diagnosis knowledge deficit Goal: Patient will verbalize understanding of how heart failure affects the body Outcome: Progressing Goal: Patient will verbalize understanding of how other conditions affect the heart Outcome: Progressing Problem: Fluid retention/overload Goal: Patient will be able to identify signs and symptoms of fluid retention Outcome: Progressing Problem: Heart failure medication adherence Goal: Consistently take heart failure medication as prescribed Outcome: Progressing Problem: Insufficient exercise regimen Goal: Patient will engage in physical activity safely Outcome: Progressing Problem: Heart failure progression and care needs Goal: Patient will verbalize understanding of heart failure progression Outcome: Progressing Problem: Heart failure maintenance Goal: Patient will not experience any symptoms of shortness of breath or body swelling over the next 3 months Outcome: Progressing Problem: Pain - Adult Goal: Verbalizes/displays adequate comfort level or baseline comfort level Outcome: Adequate for Discharge Problem: Genitourinary - Adult Goal: Absence of urinary retention Outcome: Adequate for Discharge Normal [facility] 30 Daily Case Managemen t Update Multidisciplinary rounds have been completed. Barriers to Discharge: Tx from [facility] with afib. TTE showed and EF of 20-25%. Plan is for a TESS with cardioversion tomorrow. Patient is from home with his and plans to return. Diet: Dietary Orders (From admission, onward) Start Ordered 10/17/23 0001 Diet NPO Diet effective midnight Comments: Sips with medications Question: Reason for NPO: Answer: Operation/Procedure 10/16/23 1413 10/16/23 1332 Regular Diet Heart Healthy/HTN, CABG,Stroke, (2gNA, low fat, low cholesterol) Diet effective now Question Answer Comment Room Service? Yes Fat restriction: Heart Healthy/HTN, CABG,Stroke, (2gNA, low fat, low cholesterol) 10/16/23 1331 Physician Expected Discharge Date: 10/18/2023 Discharge Delays: PT Six Click Score: OT Six Click Score: PT Recommendations: OT Recommendations: Is expected discharge disposition appropriate for patient?: Yes New Consults: Normal [facility] 30 The patient is Moderately Stable - Low risk of patient condition declining or worsening The patient's goals for the shift include sleep The clinical goals for the shift include NPO at 0000 Over the shift, the patient did make progress toward the following goals. Barriers to progression include irregular rhythm. Recommendations to address these barriers include awaiting consult. Problem: Pain - Adult Goal: Verbalizes/displays adequate comfort level or baseline comfort level Outcome: Progressing Problem: Safety - Adult Goal: Free from fall injury Outcome: Progressing Problem: Chronic Conditions and Co-morbidities Goal: Patient's chronic conditions and co-morbidity symptoms are monitored and maintained or improved Outcome: Progressing Problem: Cardiovascular - Adult Goal: Maintains optimal cardiac output and hemodynamic stability Outcome: Progressing Problem: Skin/Tissue Integrity - Adult Goal: Skin integrity remains intact Outcome: Progressing Problem: Genitourinary - Adult Goal: Absence of urinary retention Outcome: Progressing Problem: Metabolic/Fluid and Electrolytes - Adult Goal: Electrolytes maintained within normal limits Outcome: Progressing Problem: Heart failure medication adherence Goal: Consistently take heart failure medication as prescribed Outcome: Progressing Problem: Heart failure maintenance Goal: Patient will not experience any symptoms of shortness of breath or body swelling over the next 3 months Outcome: Progressing Normal [facility] 30 The patient is Moderately Stable - Low risk of patient condition declining or worsening The patient's goals for the shift include sleep The clinical goals for the shift include NPO at 0000 Over the shift, the patient made progress toward the following goals: Problem: Pain - Adult Goal: Verbalizes/displays adequate comfort level or baseline comfort level Outcome: Progressing Problem: Safety - Adult Goal: Free from fall injury Outcome: Progressing Problem: Discharge Planning Goal: Discharge to home or other facility with appropriate resources Outcome: Progressing Problem: Chronic Conditions and Co-morbidities Goal: Patient's chronic conditions and co-morbidity symptoms are monitored and maintained or improved Outcome: Progressing Problem: Cardiovascular - Adult Goal: Maintains optimal cardiac output and hemodynamic stability Outcome: Progressing Goal: Absence of cardiac dysrhythmias or at baseline Outcome: Progressing Problem: Skin/Tissue Integrity - Adult Goal: Skin integrity remains intact Outcome: Progressing Goal: Incisions, wounds, or drain sites healing without S/S of infection Outcome: Progressing Problem: Genitourinary - Adult Goal: Absence of urinary retention Outcome: Progressing Problem: Metabolic/Fluid and Electrolytes - Adult Goal: Electrolytes maintained within normal limits Outcome: Progressing Normal [facility] APTTon 10-16-2023 ACTIVATED PARTIAL THROMBOPLASTIN TIME IN PPP BY COAGULATION ASSAY 99.3 Seconds High 25.0-35.0 [facility] Comment on above: Result Comment: Clin ical significance of the APTT is questionable in the presence of heparin. Performed By: #### L [id number] #### [facility]) [address] [place] [address] ACTIVATED PARTIAL THROMBOPLASTIN TIME IN PPP BY COAGULATION ASSAY 51.6 Seconds High 25.0-35.0 [facility] Comment on above: Result Comment: Clin ical significance of the APTT is questionable in the presence of heparin. Performed By: #### L [id number] ####[facility] ([facility])[address] [place] [address] ACTIVATED PARTIAL THROMBOPLASTIN TIME IN PPP BY COAGULATION ASSAY 79.9 Seconds High 25.0-35.0 [facility] Comment on above: Result Comment: Clin ical significance of the APTT is questionable in the presence of heparin. Performed By: #### L [id number] #### [facility]) [address] [facility] [place] [address] CBC WITH AUTO DIFFERENTIALon 10-16-2023 Basophils (Bld) [#/Vol] 0.07 10*3/uL Normal 0.00-0.20 [facility] Comment on above: Performed By: #### L [id number] #### [facility]) [address] [place] [address] Basophils/100 WBC (Bld) 0.9 % Normal 0.0-1.0 [facility] Comment on above: Performed By: #### L [id number] #### [facility]) [address] [address] Eosinophils (Bld) [#/Vol] 0.73 10*3/uL High 0.00-0.50 [facility] Comment on above: Performed By: #### L [id number] #### [facility]) [address] [address] Eosinophils/100 WBC (Bld) 9.8 % High 0.0-6.0 [facility] Comment on above: Performed By: #### L [id number] #### [facility]) [address] [place] [address] Erythrocyte distribution width (RBC) [Ratio] 12.9 % Normal 11.5-15.0 [facility] Comment on above: Performed By: #### L [id number] #### [facility]) [address] [place] [address] ERYTHROCYTE MEAN CORPUSCULAR HEMOGLOBIN CONCENTRATION (G/DL) BY AUTOMATED 33.7 g/dL Normal 32.0-35.0 [facility] Comment on above: Performed By: #### L [id number] #### [facility] [address] [place] [id number] Hematocrit (Bld) [Volume fraction] 40.6 % Normal 39.0-55.0 [facility] Comment on above: Performed By: #### L [id number] #### [facility] ([facility]) [address] [place] [address] Hemoglobin (Bld) [Mass/Vol] 13.7 g/dL Normal 13.0-17.0 [facility] Comment on above: Performed By: #### L [id number] #### [facility] ([facility]) [address] [place] [address] Immature granulocytes (Bld) [#/Vol] 0.04 10*3/uL Normal 0.00-0.20 [facility] Comment on above: Performed By: #### L [id number] #### [facility] ([facility]) [address] [place] [address] Immature granulocytes/100 WBC (Bld) 0.5 % Normal 0.0-1.0 [facility] Comment on above: Performed By: #### L [id number] #### [facility] ([facility]) [address] [address] Lymphocytes (Bld) [#/Vol] 3.21 10*3/uL Normal 1.20-4.00 [facility] Comment on above: Performed By: #### L [id number] #### [facility] ([facility]) [address] [place] [address] Lymphocytes/100 WBC (Bld) 43.3 % Normal 20.0-45.0 [facility] Comment on above: Performed By: #### L [id number] #### [facility] ([facility]) [address] [place] [address] MCH (RBC) [Entitic mass] 33.6 pg High 27.0-33.0 [facility] Comment on above: Performed By: #### L [id number] #### [facility] ([facility]) [address] [place] [address] MCV (RBC) [Entitic vol] 99.5 fL High 82.0-98.0 [facility] Comment on above: Performed By: #### L [id number] #### [facility] [address] [place] [address] Monocytes (Bld) [#/Vol] 0.81 10*3/uL Normal 0.10-1.00 [facility] Comment on above: Performed By: #### L [id number] #### [facility] [address] [place] [address] Monocytes/100 WBC (Bld) 10.9 % Normal 5.0-12.0 [facility] Comment on above: Performed By: #### L [id number] #### [facility] ([facility]) [address] [place] [address] Neutrophils (Bld) [#/Vol] 2.56 10*3/uL Normal 1.60-7.60 [facility] Comment on above: Performed By: #### L [id number] #### [facility] ([facility]) [address] [place] [address] Neutrophils/100 WBC (Bld) 34.6 % Low 40.0-72.0 [facility] Comment on above: Performed By: #### L [id number] #### [facility] ([facility]) [address] [place] [address] NRBC (PER 100 WBCS) BY AUTOMATED COUNT 0.0 % Normal 0 [facility] Comment on above: Performed By: #### L [id number] #### [facility] ([facility]) [address] [place] [address] PLATELETS (10*3/UL) IN BLOOD AUTOMATED COUNT 274 10*3/uL Normal 150-400 [facility] Comment on above: Performed By: #### L [id number] #### [facility] ([facility]) [address] [place] [address] RBC (Bld) [#/Vol] 4.08 10*6/uL Low 4.20-5.70 [facility] Comment on above: Performed By: #### L [id number] #### [facility] ([facility]) [address] [place] [address] WBC (Bld) [#/Vol] 7.42 10*3/uL Normal 4.00-10.60 [facility] Comment on above: Performed By: #### L [id number] #### [facility] ([facility]) [address] [place] [address] CONSULTon 10-16-2023 CONSULT - Attestation signed by Eugene Gutierrez MD at 12/11/2023 8:34 PM I personally saw and examined the patient on the same date of service as the resident. I discussed the findings and therapeutic plan with the resident/fellow. Plan of care was discussed with patient, and patient is agreeable with plan. I agree with the documentation, except for any edits/updates below. Teaching Physician's Revisions: none Eugene Gutierrez MD MD Cardiology Cardiology Consult Note Reason for Consult: Atrial Flutter HPI: Alejandro Maradiaga is a 68 y.o. male presented emergency department as a transfer from [facility] for uncontrolled atrial flutter. Patient eventually presented to [facility] on 10/13/2020 treated with chief complaint of nausea vomiting flank pain. UA was consistent with urinary tract infection and patient was placed on Rocephin. Patient presented to outside hospital with HR in the 130s at that time and was found to have atrial flutter on EKG. Urine culture reportedly revealed E. coli and blood cultures remain negative. Patient remained in atrial flutter despite multiple doses of digoxin, patient was transferred for possible cardioversion by cardiology here at [facility]. Echocardiogram revealed atrial flutter with right bundle branch block and left axis deviation with a rate of 111 bpm. Upon transfer patient was found to have decreased magnesium at 1.6 decreased sodium 135 remarkable. Patient seen and examined at bedside this afternoon. Patient jared afebrile and stable, saturating well on room air. No acute events overnight. Patient endorsing palpations but otherwise no chest pain, orthopnea, PND, syncope, nor lightheadedness. Patient does endorse some cervical neck pain which is consistent with prior diagnosis of osteoarthritis. Cardiology ROS: GENERAL: Denies fever, chills, night sweats, weight loss. CARDIOVASCULAR: Endorses Palpitations. Denies chest pain, exertional dyspnea, orthopnea/PND, lower extremity edema, palpitations, lightheadedness/dizzi ness, syncope. RESPIRATORY: Denies SOB, coughing, wheezing GI: Denies abdominal pain, nausea/vomiting. PSYCH: Denies anxiety. Past Medical History He has no past medical history on file. Surgical History He has no past surgical history on file. Social History He reports that he has been smoking cigarettes. He started smoking about 43 years ago. He has a 7.50 pack-year smoking history. He has never used smokeless tobacco. No history on file for alcohol use and drug use. Family History No family history on file. Allergies Adenosine and Latex Medications Medications Prior to Admission Medication Sig Dispense Refill Last Dose albuterol 90 mcg/actuation inhaler Inhale 1 puff in the morning. atorvastatin (Lipitor) 10 mg tablet Take 10 mg by mouth in the morning. fluticasone-umeclidin -vilanter 200-62.5-25 mcg blister with device Inhale in the morning. ipratropium-albuteroL (Duo-Neb) 0.5-2.5 mg/3 mL nebulizer solution Take 3 mL by nebulization in the morning and at bedtime. 2.5mg base montelukast (Singulair) 10 mg tablet Take 10 mg by mouth at bedtime. Last Recorded Vitals Patient Vitals for the past 24 hrs: BP Temp Temp src Pulse Resp SpO2 Height Weight 10/16/23 1150 155/76 36.6 ???C (97.9 ???F) Temporal 99 14 96 % -- -- 10/16/23 0750 117/62 36.6 ???C (97.8 ???F) Temporal 109 16 94 % -- -- 10/16/23 0500 -- -- -- -- -- -- -- 76.8 kg (169 lb 6.4 oz) 10/16/23 0400 136/54 36.3 ???C (97.3 ???F) -- 89 20 93 % -- -- 10/16/23 0000 145/68 36.3 ???C (97.3 ???F) -- 107 18 93 % -- -- 10/15/23 2200 142/67 -- -- 90 16 96 % -- -- 10/15/23 2000 141/59 36.2 ???C (97.1 ???F) -- 103 16 94 % -- -- 10/15/23 1721 142/62 36.5 ???C (97.7 ???F) Temporal 108 16 95 % 1.803 m (5' 11 ) 77.1 kg (170 lb) 10/15/23 1720 142/62 36.5 ???C (97.7 ???F) Temporal (!) 114 (!) 29 100 % -- -- Physical Examination: Physical Exam Constitutional: Appearance: Normal appearance. He is normal weight. HENT: Head: Normocephalic and atraumatic. Mouth/Throat: Mouth: Mucous membranes are moist. Pharynx: Oropharynx is clear. Eyes: Extraocular Movements: Extraocular movements intact. Pupils: Pupils are equal, round, and reactive to light. Cardiovascular: Rate and Rhythm: Rhythm irregular. Pulses: Normal pulses. Heart sounds: Normal heart sounds. Pulmonary: Effort: Pulmonary effort is normal. Breath sounds: Normal breath sounds. Abdominal: General: Abdomen is flat. Palpations: Abdomen is soft. Musculoskeletal: General: Normal range of motion. Cervical back: Normal range of motion and neck supple. Right lower leg: No edema. Left lower leg: No edema. Skin: General: Skin is warm and dry. Neurological: General: No focal deficit present. Mental Status: He is aler (more content not included)... Normal [facility] HEMOGLOBIN A1Con 10-16-2023 Glucose [Mass/Vol] 126 mg/dL Normal [facility] Comment on above: Performed By: #### L [id number] ####[facility] ([facility])[address] [place] [address] HbA1c (Bld) [Mass fraction] 6.0 % Normal 4.0-6.0 [facility] Comment on above: Performed By: #### L [id number] ####[facility] ([facility])[address] [place] [address] LIPID PANELon 10-16-2023 CHOL/HDL 5.2 mg/dL Normal [facility] Comment on above: Performed By: #### L [id number] #### [facility] ([facility]) [address] [place] [address] Cholesterol [Mass/Vol] 104 mg/dL Low 120-200 [facility] Comment on above: Performed By: #### L [id number] #### [facility] ([facility]) [address] [place] [address] Magnesium [Mass/Vol] 72 mg/dL Normal 40-149 [facility] Comment on above: Result Comment: TRIG LYCERIDE REFERENCE RANGE: 20 YEARS AND OLDER CARDIOVASCULAR RISK LESS THAN 150 mg/dL LOW RISK 150 TO 199 mg/dL BORDERLINE RISK 200 mg/dL AND GREATER HIGH RISK Performed By: #### L [id number] #### [facility] ([facility]) [address] [place] [address] Magnesium [Mass/Vol] 70 mg/dL Normal 0-160 [facility] Comment on above: Performed By: #### L [id number] #### [facility] ([facility]) [address] [place] [address] Magnesium [Mass/Vol] 20 mg/dL Low 23-92 [facility] Comment on above: Performed By: #### L [id number] #### [facility] ([facility]) [address] [place] [address] NON HDL CHOL. (LDL+VLDL) 84 [facility] Comment on above: Performed By: #### L [id number] #### [facility] ([facility]) [address] [place] [address] TOTAL VLDL-C 14 mg/dL Normal 0-40 [facility] Comment on above: Performed By: #### L [id number] #### [facility] ([facility]) [address] [place] [address] MAGNESIUMon 10-16-2023 Magnesium [Mass/Vol] 1.9 mg/dL Normal 1.9-2.7 [facility] Comment on above: Performed By: #### L [id number] #### [facility] ([facility]) [address] [place] [address] STANon 10-16-2023 STAN [facility] Cardiology, called senior writer back at, no cath today, resume previous diet [facility] Gonzalez Workman, called senior writer back and stated she called dental laboratory worker and he is scheduled. Drywall Application Supervisor called laborer carpentry dock to double check and they said they still had not heard anything regarding this pt yet and they would call Cardiology to see if they could figure out where the confusion was. Will continue to monitor. [facility] STAN Hylton has called Cardiology ([phone]) on multiple occasions today to verify what plan was for pt due to NPO status (refer to Provider Notification charting). Drywall Application Supervisor had been assured multiple times that order was going to be put in for a cath request, but at time of writing, still no order has been put in. Drywall Application Supervisor called Cardiology again and fellow told senior writer Yes, order is in, it is just not showing up in the system, laborer carpentry dock is aware, thanks for calling and proceeded to hang up the phone before senior writer could get a word out. Drywall Application Supervisor proceeded to call dental laboratory worker, who told senior writer they had not seen or heard anything regarding this patient today. As of this time, still no Cardiology note to verify plan for pt heart cath. Will continue to monitor. Normal [facility] TROPONIN Ion 10-16-2023 Troponin I.cardiac [Mass/Vol] 0.03 ng/mL Normal 0.00-0.04 [facility] Comment on above: Performed By: #### L [id number] #### [facility] ([facility] [address] [place] [address] 30on 10-15-2023 30 The patient is Moderately Stable - Low risk of patient condition declining or worsening The patient's goals for the shift include The clinical goals for the shift include Over the shift, the patient did not make progress toward the following goals. Barriers to progression include aflutter. Recommendations to address these barriers include vital monitoring and medical management until seen by care teams. Problem: Pain - Adult Goal: Verbalizes/displays adequate comfort level or baseline comfort level Outcome: Progressing Problem: Safety - Adult Goal: Free from fall injury Outcome: Progressing Problem: Discharge Planning Goal: Discharge to home or other facility with appropriate resources Outcome: Progressing Problem: Chronic Conditions and Co-morbidities Goal: Patient's chronic conditions and co-morbidity symptoms are monitored and maintained or improved Outcome: Progressing Normal [facility] APTTon 10-15-2023 ACTIVATED PARTIAL THROMBOPLASTIN TIME IN PPP BY COAGULATION ASSAY 34.4 Seconds Normal 25.0-35.0 [facility] Comment on above: Result Comment: Clin ical significance of the APTT is questionable in the presence of heparin. Performed By: #### L [id number] ####[facility] ([facility] [place] [address] B-TYPE NATRIURETIC PEPTIDEon 10-15-2023 Natriuretic peptide B (Bld) [Mass/Vol] 969 pg/mL High 0-100 [facility] Comment on above: Performed By: #### L [id number] ####[facility] ([facility])[address] [place] [address] BASIC METABOLIC PANELon 12-0 Anion gap [Moles/Vol] 12 mmol/L Normal 7-20 [facility] Comment on above: Performed By: #### L [id number] #### [facility] ([facility]) [address] [place] [address] Calcium [Mass/Vol] 9.2 mg/dL Normal 8.6-10.3 [facility] Comment on above: Performed By: #### L [id number] #### [facility] ([facility]) [address] [place] [address] Chloride [Moles/Vol] 103 mmol/L Normal 98-107 [facility] Comment on above: Performed By: #### L [id number] #### [facility] ([facility]) [address] [place] [address] CO2 [Moles/Vol] 24 mmol/L Normal 21-31 [facility] Comment on above: Performed By: #### L [id number] #### [facility] ([facility]) [address] [place] [address] Creatinine [Mass/Vol] 0.63 mg/dL Low 0.70-1.30 [facility] Comment on above: Performed By: #### L [id number] #### [facility] ([facility]) [address] [place] [address] GLOMERULAR FILTRATION RATE ML/MIN/1.73 SQ M.PREDICTED 103.6 mL/min/1.73m*2 Normal >60.0 [facility] Comment on above: Result Comment: The [facility]???s estimated glomerular filtration rate (eGFR) will no longer include consideration of race in its calculation. The National Kidney Foundation???s eGFR Task Force developed new recommendations for the estimation of the glomerular filtration rate in the [place] They recommend immediate implementation of the new equation refit without the race variable in all laboratories because the calculation does not include race. In addition to not including race in the calculation and reporting, it included diversity in its development, and has acceptable performance characteristics and potential consequences that do not disproportionately affect any one group of individuals. Performed By: #### L [id number] #### [facility] ([facility]) [address] [place] [address] Glucose [Mass/Vol] 105 mg/dL High 70-100 [facility] Comment on above: Performed By: #### L [id number] #### [facility] ([facility]) [address] [place] [address] Potassium [Moles/Vol] 3.5 mmol/L Normal 3.5-5.1 [facility] Comment on above: Performed By: #### L [id number] #### [facility] ([facility]) [address] [place] [address] Sodium [Moles/Vol] 135 mmol/L Low 136-145 [facility] Comment on above: Performed By: #### L [id number] #### [facility] ([facility]) [address] [place] [address] Urea nitrogen [Mass/Vol] 9 mg/dL Normal 7-25 [facility] Comment on above: Performed By: #### L [id number] #### [facility] ([facility]) [address] [place] [address] UREA NITROGEN/CREATININE (MASS RATIO) IN SER/PLAS 14.[address] [facility] Comment on above: Performed By: #### L [id number] #### [facility] ([facility]) [address] [place] [address] CBC WITH AUTO DIFFERENTIALon 10-15-2023 Basophils (Bld) [#/Vol] 0.07 10*3/uL Normal 0.00-0.20 [facility] Comment on above: Performed By: #### L [id number] ####[facility] ([facility])[address] [place] [address] Basophils/100 WBC (Bld) 1.0 % Normal 0.0-1.0 [facility] Comment on above: Performed By: #### L [id number] ####[facility] ([facility])[address] [place] [address] Eosinophils (Bld) [#/Vol] 0.55 10*3/uL High 0.00-0.50 [facility] Comment on above: Performed By: #### L [id number] ####[facility] ([facility])[address] [place] [address] Eosinophils/100 WBC (Bld) 7.7 % High 0.0-6.0 [facility] Comment on above: Performed By: #### L [id number] ####[facility] ([facility])[address] [place] [address] Erythrocyte distribution width (RBC) [Ratio] 12.9 % Normal 11.5-15.0 [facility] Comment on above: Performed By: #### L [id number] ####[facility] ([facility])[address] [place] [address] ERYTHROCYTE MEAN CORPUSCULAR HEMOGLOBIN CONCENTRATION (G/DL) BY AUTOMATED 34.2 g/dL Normal 32.0-35.0 [facility] Comment on above: Performed By: #### L [id number] ####[facility] ([facility])[address] [place] [address] Hematocrit (Bld) [Volume fraction] 44.8 % Normal 39.0-55.0 [facility] Comment on above: Performed By: #### L [id number] ####[facility] ([facility])[address] [place] [address] Hemoglobin (Bld) [Mass/Vol] 15.3 g/dL Normal 13.0-17.0 [facility] Comment on above: Performed By: #### L [id number] ####[facility] ([facility])[address] [place] [address] Immature granulocytes (Bld) [#/Vol] 0.04 10*3/uL Normal 0.00-0.20 [facility] Comment on above: Performed By: #### L [id number] ####[facility] ([facility])[address] [place] [address] Immature granulocytes/100 WBC (Bld) 0.6 % Normal 0.0-1.0 [facility] Comment on above: Performed By: #### L [id number] ####[facility] ([facility])[address] [place] [address] Lymphocytes (Bld) [#/Vol] 2.62 10*3/uL Normal 1.20-4.00 [facility] Comment on above: Performed By: #### L [id number] ####[facility] ([facility])[address] [place] [address] Lymphocytes/100 WBC (Bld) 36.9 % Normal 20.0-45.0 [facility] Comment on above: Performed By: #### L [id number] ####[facility] ([facility])[address] [place] [address] MCH (RBC) [Entitic mass] 33.6 pg High 27.0-33.0 [facility] Comment on above: Performed By: #### L [id number] ####[facility] ([facility])[address] [place] [address] MCV (RBC) [Entitic vol] 98.2 fL High 82.0-98.0 [facility] Comment on above: Performed By: #### L [id number] ####[facility] ([facility])[address] [place] [address] Monocytes (Bld) [#/Vol] 0.66 10*3/uL Normal 0.10-1.00 [facility] Comment on above: Performed By: #### L [id number] ####[facility] ([facility])[address] [place] [address] Monocytes/100 WBC (Bld) 9.3 % Normal 5.0-12.0 [facility] Comment on above: Performed By: #### L [id number] ####[facility] ([facility])[address] [place] [address] Neutrophils (Bld) [#/Vol] 3.16 10*3/uL Normal 1.60-7.60 [facility] Comment on above: Performed By: #### L [id number] ####[facility] ([facility])[address] [place] [address] Neutrophils/100 WBC (Bld) 44.5 % Normal 40.0-72.0 [facility] Comment on above: Performed By: #### L [id number] ####[facility] ([facility])[address] [place], [place] [address] NRBC (PER 100 WBCS) BY AUTOMATED COUNT 0.0 % Normal 0 [facility] Comment on above: Performed By: #### L [id number] ####[facility] ([facility])[address] [place] [address] PLATELETS (10*3/UL) IN BLOOD AUTOMATED COUNT 279 10*3/uL Normal 150-400 [facility] Comment on above: Performed By: #### L [id number] ####[facility] ([facility])[address] [place] [address] RBC (Bld) [#/Vol] 4.56 10*6/uL Normal 4.20-5.70 [facility] Comment on above: Performed By: #### L [id number] ####[facility] ([facility])[address] [place] [address] WBC (Bld) [#/Vol] 7.10 10*3/uL Normal 4.00-10.60 [facility] Comment on above: Performed By: #### L [id number] ####[facility] ([facility] [place] [address] HEPATIC FUNCTION PANELon Albumin [Mass/Vol] 4.0 g/dL Normal 3.5-5.7 [facility] Comment on above: Performed By: #### L [id number] ####[facility] ([facility] [place] [address] ALP [Catalytic activity/Vol] 73 U/L Normal 34-104 [facility] Comment on above: Performed By: #### L [id number] ####[facility] ([facility] [place] [address] ALT [Catalytic activity/Vol] 12 U/L Normal 7-52 [facility] Comment on above: Performed By: #### L [id number] ####[facility] ([facility])[address] [place] [address] AST [Catalytic activity/Vol] 20 U/L Normal 13-39 [facility] Comment on above: Performed By: #### L [id number] ####[facility] ([facility])[address] [place] [address] Bilirubin [Mass/Vol] 1.0 mg/dL Normal 0.3-1.0 [facility] Comment on above: Performed By: #### L [id number] ####[facility] ([facility])[address] [place] [address] Magnesium [Mass/Vol] 0.3 mg/dL High 0-0.2 [facility] Comment on above: Performed By: #### L [id number] ####[facility] ([facility])[address] [place] [address] Protein [Mass/Vol] 7.1 g/dL Normal 6.0-8.3 [facility] Comment on above: Performed By: #### L [id number] ####[facility] ([facility] [place] [address] MAGNESIUMon 10-15-2023 Magnesium [Mass/Vol] 1.6 mg/dL Low 1.9-2.7 [facility] Comment on above: Performed By: #### L [id number] ####[facility] ([facility] [place] [address] PROTIME-INRon 10-15-2023 INR IN PPP BY COAGULATION ASSAY 1.28 High 0.90-1.10 [facility] Comment on above: Result Comment: [facility] P RECOMMENDED INR FOR WARFARIN THERAPY CONDITION INR PROPHYLAXIS OF VENOUS THROMBOSIS 2-3 (HIGH-RISK SURGERY) TREATMENT OF VENOUS THROMBOSIS 2-3 TREATMENT OF PULMONARY EMBOLISM 2-3 PREVENTION OF SYSTEMIC EMBOLISM: 2-3 ACUTE MYOCARDIAL INFARCTION TISSUE HEART VALVES VALVULAR HEART DISEASE ATRIAL FIBRILLATION RECURRENT SYSTEMIC EMBOLISM MECHANICAL HEART VALVE 2.5-3.5 FROM: ORAL ANTICOAGULANTS. MECHANISM OF ACTION, CLINICAL EFFECTIVENESS, AND OPTIMAL THERAPEUTIC RANGE. CHEST 1995;108:[id number]. Performed By: #### L [id number] ####[facility])[address] [place] [address] PROTHROMBIN TIME (PT) IN PPP BY COAGULATION ASSAY 16.0 Seconds High 12.3-14.8 [facility] Comment on above: Performed By: #### L [id number] ####[facility] [facility] [place] [address] TROPONIN Ion 10-15-2023 Troponin I.cardiac [Mass/Vol] 0.03 ng/mL Normal 0.00-0.04 [facility] Comment on above: Performed By: #### L [id number] #### [facility] [address] [place] [address] TSH3 REFLEX TO FT4on 023 THYROTROPIN (MIU/L) IN SER/PLAS BY DETECTION LIMIT <= 0.05 MIU/L 3.20 mIU/L Normal 0.34-5.60 [facility] Comment on above: Performed By: #### L [id number] #### [facility]) [address] [place] [address] URINALYSISon 10-15-2023 BILIRUBIN, TOTAL PRESENCE IN URINE Negative Normal Negative [facility] Comment on above: Performed By: #### L [id number] #### [facility] ([facility]) [address] [place] [address] Clarity (U) Clear Normal Clear [facility] Comment on above: Performed By: #### L [id number] #### [facility]) [address] [place] [address] Color (U) Yellow Normal Yellow [facility] Comment on above: Performed By: #### L [id number] #### [facility]) [address] [place] [address] Glucose (U) [Mass/Vol] Negative Normal Negative [facility] Comment on above: Performed By: #### L [id number] #### [facility] ([facility]) [address] [place] [address] HEMOGLOBIN PRESENCE IN URINE Large Abnormal Negative [facility] Comment on above: Performed By: #### L [id number] #### [facility] ([facility]) [address] [place] [address] Ketones Ql (U) Negative Normal Negative [facility] Comment on above: Performed By: #### L [id number] #### [facility] ([facility]) [address] [place] [address] LEUKOCYTE ESTERASE PRESENCE IN URINE BY TEST STRIP Trace Abnormal Negative [facility] Comment on above: Performed By: #### L [id number] #### [facility] ([facility]) [address] [place] [address] NITRITE PRESENCE IN URINE Negative Normal Negative [facility] Comment on above: Performed By: #### L [id number] #### [facility]) [address] [place] [address] pH (U) 6.0 [pH] Normal 5.0-8.0 [facility] Comment on above: Performed By: #### L [id number] #### [facility] ([facility]) [address] [place] [address] Protein (U) [Mass/Vol] 30 mg/dL Abnormal Negative [facility] Comment on above: Performed By: #### L [id number] #### [facility]) [address] [place] [address] Specific gravity (U) [Rel density] 1.015 Normal 1.015-1.020 [facility] Comment on above: Performed By: #### L [id number] #### [facility]) [address] [place] [address] UROBILINOGEN (EU/DL) IN URINE 4.0 EU/dL Abnormal Negative [facility] Comment on above: Performed By: #### L [id number] #### [facility]) [address] [place] [address] URINALYSIS MICROSCOPICon CASTS IN URINE Present Abnormal None Seen [facility] Comment on above: Performed By: #### L [id number] #### [facility]) [address] [place] [address] CRYSTALS IN URINE Normal [facility] Comment on above: Performed By: #### L [id number] #### [facility]) [address] [place] [address] HYALINE CASTS /LPF IN URINE SEDIMENT BY MICROSCOPY 2 /LPF High <1 [facility] Comment on above: Performed By: #### L [id number] #### [facility]) [address] [place] [address] MUCUS (#/HPF) IN URINE SEDIMENT Few Normal None Seen, Occasional, Few [facility] Comment on above: Performed By: #### L [id number] #### [facility]) [address] [place] [address] RBC (#/HPF) IN URINE SEDIMENT >[address] [facility] Comment on above: Performed By: #### L [id number] #### [facility] ([facility]) [address] [place] [address] SQUAMOUS EPITHELIAL CELLS (#/HPF) IN URINE SEDIMENT None Seen Normal None Seen, Occasional [facility] Comment on above: Performed By: #### L [id number] #### [facility]) [address] [place] [address] WBC (LEUKOCYTE) (#/HPF) IN URINE SEDIMENT 21-[address] [facility] Comment on above: Performed By: #### L [id number] #### [facility] ([facility]) [address] [place] [address] CBC with differential (COPC) on 01-16-2023 BASO # 0.1 K CUMM Normal 0.0-0.2 [facility] Comment on above: Order Comment: Items in this order include: Comprehensive Metabolic Panel, Lipid Panel, Free T4, PSA (Screening Medicare Only), TSH, CBC with differential, Testing Performed By: [facility] [address] [place] [address] CLIA#:[id number] [address] Abbe Celeste, Software Sales Consultant Performed By: #### C 4125, C408, C215, C47, C400, C8 #### [facility] [address] [facility] [address] [place] [address] Basophils/100 WBC (Bld) 1.1 % Normal 0.0-3.0 [facility] Comment on above: Order Comment: Items in this order include: Comprehensive Metabolic Panel, Lipid Panel, Free T4, PSA (Screening Medicare Only), TSH, CBC with differential, Testing Performed By: [facility] [address] [place] [address] CLIA#:[id number] [address] Abbe Celeste, Software Sales Consultant Performed By: #### C 4125, C408, C215, C47, C400, C8 #### [facility] [address] [facility] [facility] [address] [place] [address] EOS # 0.7 K CUMM High 0.0-0.4 [facility] Comment on above: Order Comment: Items in this order include: Comprehensive Metabolic Panel, Lipid Panel, Free T4, PSA (Screening Medicare Only), TSH, CBC with differential, Testing Performed By: [facility] [address] [place] [address] CLIA#:[id number] [address]. Abbe Celeste, Software Sales Consultant Performed By: #### C 4125, C408, C215, C47, C400, C8 #### [facility] [address] [facility] [facility] [address] [place] [address] Eosinophils/100 WBC (Bld) 9.5 % High 0.0-7.0 [facility] Comment on above: Order Comment: Items in this order include: Comprehensive Metabolic Panel, Lipid Panel, Free T4, PSA (Screening Medicare Only), TSH, CBC with differential, Testing Performed By: [facility] [address] [place] [address] CLIA#:[id number] [address]. Abbe Celeste, Software Sales Consultant Performed By: #### C 4125, C408, C215, C47, C400, C8 #### [facility] [facility] [place] [address] Erythrocyte distribution width (RBC) [Ratio] 13.4 % Normal 11.5-15.5 [facility] Comment on above: Order Comment: Items in this order include: Comprehensive Metabolic Panel, Lipid Panel, Free T4, PSA (Screening Medicare Only), TSH, CBC with differential, Testing Performed By: [facility] [address] [place] [address] CLIA#:[id number] [address] Abbe Celeste, Software Sales Consultant Performed By: #### C 4125, C408, C215, C47, C400, C8 #### [facility] [address] [facility] [address] [place] [address] Hematocrit (Bld) [Volume fraction] 45.6 % Normal 42.0-52.0 [facility] Comment on above: Order Comment: Items in this order include: Comprehensive Metabolic Panel, Lipid Panel, Free T4, PSA (Screening Medicare Only), TSH, CBC with differential, Testing Performed By: [facility] [address] [place] [address] CLIA#:[id number] [address]. Abbe Celeste, Software Sales Consultant Performed By: #### C 4125, C408, C215, C47, C400, C8 #### [facility] [address] [place] [address] Hemoglobin (Bld) [Mass/Vol] 15.9 g/dL Normal 13.5-18.0 [facility] Comment on above: Order Comment: Items in this order include: Comprehensive Metabolic Panel, Lipid Panel, Free T4, PSA (Screening Medicare Only), TSH, CBC with differential, Testing Performed By: [facility] [address] [place] [address] CLIA#:[id number] [address]. Abbe Celeste, Software Sales Consultant Performed By: #### C 4125, C408, C215, C47, C400, C8 #### [facility] [address] [place] [address] ImmGrn # 0.0 K CUMM Normal 0.0-0.3 [facility] Comment on above: Order Comment: Items in this order include: Comprehensive Metabolic Panel, Lipid Panel, Free T4, PSA (Screening Medicare Only), TSH, CBC with differential, Testing Performed By: [facility] [address] [place] [address] CLIA#:[id number] [address]. Abbe Celeste, Software Sales Consultant Performed By: #### C 4125, C408, C215, C47, C400, C8 #### [facility] [address] [facility] [address] [place] [address] ImmGrn % 0.6 % Normal 0.0-3.0 [facility] Comment on above: Order Comment: Items in this order include: Comprehensive Metabolic Panel, Lipid Panel, Free T4, PSA (Screening Medicare Only), TSH, CBC with differential, Testing Performed By: [facility] [address] [place] [address] CLIA#:[id number] Dr. Abbe Celeste, Software Sales Consultant Performed By: #### C 4125, C408, C215, C47, C400, C8 #### [facility] [address] [facility] [address] [place] [address] LYMPH # 2.7 K CUMM Normal 0.7-4.5 [facility] Comment on above: Order Comment: Items in this order include: Comprehensive Metabolic Panel, Lipid Panel, Free T4, PSA (Screening Medicare Only), TSH, CBC with differential, Testing Performed By: [facility] [address] [place] [address] CLIA#:[id number] [address] Abbe Celeste, Software Sales Consultant Performed By: #### C 4125, C408, C215, C47, C400, C8 #### [facility] [address] [facility] [address] [place] [address] Lymphocytes/100 WBC (Bld) 38.3 % Normal 14.0-46.0 [facility] Comment on above: Order Comment: Items in this order include: Comprehensive Metabolic Panel, Lipid Panel, Free T4, PSA (Screening Medicare Only), TSH, CBC with differential, Testing Performed By: [facility] [address] [place] [address] CLIA#:[id number] [address] Abbe Celeste, Software Sales Consultant Performed By: #### C 4125, C408, C215, C47, C400, C8 #### [facility] [address] [facility] [address] [place] [address] MCH (RBC) [Entitic mass] 37.6 pg High 27.0-31.0 [facility] Comment on above: Order Comment: Items in this order include: Comprehensive Metabolic Panel, Lipid Panel, Free T4, PSA (Screening Medicare Only), TSH, CBC with differential, Testing Performed By: [facility] [address] [place] [address] CLIA#:[id number] [address] Abbe Celeste, Software Sales Consultant Performed By: #### C 4125, C408, C215, C47, C400, C8 #### [facility] [address] [facility] [place] [address] MCHC (RBC) [Mass/Vol] 34.9 g/dL Normal 32.0-36.0 [facility] Comment on above: Order Comment: Items in this order include: Comprehensive Metabolic Panel, Lipid Panel, Free T4, PSA (Screening Medicare Only), TSH, CBC with differential, Testing Performed By: [facility] [address] [place] [address] CLIA#:[id number] Dr. Abbe Celeste, Software Sales Consultant Performed By: #### C 4125, C408, C215, C47, C400, C8 #### [facility] [address] [place] [address] [address] [place] [id number] MCV (RBC) [Entitic vol] 107.8 fL High 78.0-100.0 [facility] Comment on above: Order Comment: Items in this order include: Comprehensive Metabolic Panel, Lipid Panel, Free T4, PSA (Screening Medicare Only), TSH, CBC with differential, Testing Performed By: [facility] [address] [place] [address] CLIA#:[id number] [address] Abbe Celeste, Software Sales Consultant Performed By: #### C 4125, C408, C215, C47, C400, C8 #### [facility] [address] [place] [address] [place] [address] MONO # 0.7 K CUMM Normal 0.1-1.0 [facility] Comment on above: Order Comment: Items in this order include: Comprehensive Metabolic Panel, Lipid Panel, Free T4, PSA (Screening Medicare Only), TSH, CBC with differential, Testing Performed By: [facility] [address] [place] [address] CLIA#:[id number] [address] Abbe Celeste, Software Sales Consultant Performed By: #### C 4125, C408, C215, C47, C400, C8 #### [facility] [address] [facility] [place] [address] Monocytes/100 WBC (Bld) 9.6 % Normal 4.0-13.0 [facility] Comment on above: Order Comment: Items in this order include: Comprehensive Metabolic Panel, Lipid Panel, Free T4, PSA (Screening Medicare Only), TSH, CBC with differential, Testing Performed By: [facility] [address] [place] [address] CLIA#:[id number] [address] Abbe Celeste, Software Sales Consultant Performed By: #### C 4125, C408, C215, C47, C400, C8 #### [facility] [address] [place] [address] DANIEL # 2.9 K CUMM Normal 1.8-7.8 [facility] Comment on above: Order Comment: Items in this order include: Comprehensive Metabolic Panel, Lipid Panel, Free T4, PSA (Screening Medicare Only), TSH, CBC with differential, Testing Performed By: [facility] [address] [place] [address] CLIA#:[id number] [address]. Abbe Celeste, Software Sales Consultant Performed By: #### C 4125, C408, C215, C47, C400, C8 #### [facility] [address] [facility] [place] [address] Neutrophils/100 WBC (Bld) 40.9 % Normal 40.0-74.0 [facility] Comment on above: Order Comment: Items in this order include: Comprehensive Metabolic Panel, Lipid Panel, Free T4, PSA (Screening Medicare Only), TSH, CBC with differential, Testing Performed By: [facility] [address] [place] [address] CLIA#:[id number] [address] Abbe Celeste, Software Sales Consultant Performed By: #### C 4125, C408, C215, C47, C400, C8 #### [facility] [address] [place] [address] Platelet mean volume (Bld) [Entitic vol] 11.0 fL Normal 8.9-12.6 [facility] Comment on above: Order Comment: Items in this order include: Comprehensive Metabolic Panel, Lipid Panel, Free T4, PSA (Screening Medicare Only), TSH, CBC with differential, Testing Performed By: [facility] [address] [place] [address] CLIA#:[id number] [address] Abbe Celeste, Software Sales Consultant Performed By: #### C 4125, C408, C215, C47, C400, C8 #### [facility] [address] [place] [address] PLT 276 K CUMM Normal 130-400 [facility] Comment on above: Order Comment: Items in this order include: Comprehensive Metabolic Panel, Lipid Panel, Free T4, PSA (Screening Medicare Only), TSH, CBC with differential, Testing Performed By: [facility] [address] [place] [address] CLIA#:[id number] [address] Abbe Celeste, Software Sales Consultant Performed By: #### C 4125, C408, C215, C47, C400, C8 #### [facility] [address] [place] [address] RBC 4.23 M CUMM Normal 4.20-5.80 [facility] Comment on above: Order Comment: Items in this order include: Comprehensive Metabolic Panel, Lipid Panel, Free T4, PSA (Screening Medicare Only), TSH, CBC with differential, Testing Performed By: [facility] [address] [place] [address] CLIA#:[id number] Dr. Abbe Celeste, Software Sales Consultant Performed By: #### C 4125, C408, C215, C47, C400, C8 #### [facility] [address] [place] [address] WBC 7.1 K CUMM Normal 3.8-10.6 [facility] Comment on above: Order Comment: Items in this order include: Comprehensive Metabolic Panel, Lipid Panel, Free T4, PSA (Screening Medicare Only), TSH, CBC with differential, Testing Performed By: [facility] [address] [place] [address] CLIA#:[id number] Dr. Abbe Celeste, Software Sales Consultant Performed By: #### C 4125, C408, C215, C47, C400, C8 #### [facility] [address] [facility] [place] [address] Comprehensive Metabolic Pane l ([facility])on 01-16-2023 Albumin [Mass/Vol] 4.5 g/dL Normal 3.2-4.8 [facility] Comment on above: Order Comment: Items in this order include: Comprehensive Metabolic Panel, Lipid Panel, Free T4, PSA (Screening Medicare Only), TSH, CBC with differential, Testing Performed By: [facility] [address] [place] [address] CLIA#:[id number] [address]. Abbe Celeste, Software Sales Consultant Performed By: #### C 4125, C408, C215, C47, C400, C8 #### [facility] [address] [facility] [place] [address] Albumin/Globulin [Mass ratio] 1.6 {ratio} Normal 1.3-2.1 [facility] Comment on above: Order Comment: Items in this order include: Comprehensive Metabolic Panel, Lipid Panel, Free T4, PSA (Screening Medicare Only), TSH, CBC with differential, Testing Performed By: [facility] [address] [place] [address] CLIA#:[id number] Dr. Abbe Celeste, Software Sales Consultant Performed By: #### C 4125, C408, C215, C47, C400, C8 #### [facility] [address] [facility] [address] [place] [address] Alk Phos 82 U/L Normal 40-127 [facility] Comment on above: Order Comment: Items in this order include: Comprehensive Metabolic Panel, Lipid Panel, Free T4, PSA (Screening Medicare Only), TSH, CBC with differential, Testing Performed By: [facility] [address] [place] [address] CLIA#:[id number] [address] Abbe Celeste, Software Sales Consultant Performed By: #### C 4125, C408, C215, C47, C400, C8 #### [facility] [address] [place] [address] ALT [Catalytic activity/Vol] 72 U/L High 10-49 [facility] Comment on above: Order Comment: Items in this order include: Comprehensive Metabolic Panel, Lipid Panel, Free T4, PSA (Screening Medicare Only), TSH, CBC with differential, Testing Performed By: [facility] [address] [place] [address] CLIA#:[id number] [address]. Abbe Celeste, Software Sales Consultant Performed By: #### C 4125, C408, C215, C47, C400, C8 #### [facility] [address] [facility] [place] [address] AST [Catalytic activity/Vol] 63 U/L High <34 [facility] Comment on above: Order Comment: Items in this order include: Comprehensive Metabolic Panel, Lipid Panel, Free T4, PSA (Screening Medicare Only), TSH, CBC with differential, Testing Performed By: [facility] [address] [place] [address] CLIA#:[id number] [address]. Abbe Celeste, Software Sales Consultant Performed By: #### C 4125, C408, C215, C47, C400, C8 #### [facility] [address] [facility] [place] [address] B/C Ratio 15.0 Ratio Normal 10.0-28.6 [facility] Comment on above: Order Comment: Items in this order include: Comprehensive Metabolic Panel, Lipid Panel, Free T4, PSA (Screening Medicare Only), TSH, CBC with differential, Testing Performed By: [facility] [address] [place] [address] CLIA#:[id number] Dr. Abbe Celeste, Software Sales Consultant Performed By: #### C 4125, C408, C215, C47, C400, C8 #### [facility] [address] [facility] [address] [place] [address] Bilirubin [Mass/Vol] 1.3 mg/dL High 0.3-1.2 [facility] Comment on above: Order Comment: Items in this order include: Comprehensive Metabolic Panel, Lipid Panel, Free T4, PSA (Screening Medicare Only), TSH, CBC with differential, Testing Performed By: [facility] [address] [place] [address] CLIA#:[id number] [address]. Abbe Celeste, Software Sales Consultant Performed By: #### C 4125, C408, C215, C47, C400, C8 #### [facility] [address] [facility] [address] [place] [address] Calcium [Mass/Vol] 9.8 mg/dL Normal 8.3-10.6 [facility] Comment on above: Order Comment: Items in this order include: Comprehensive Metabolic Panel, Lipid Panel, Free T4, PSA (Screening Medicare Only), TSH, CBC with differential, Testing Performed By: [facility] [address] [place] [address] CLIA#:[id number] [address] Abbe Celeste, Software Sales Consultant Performed By: #### C 4125, C408, C215, C47, C400, C8 #### [facility] [address] [facility] [place] [address] Chloride [Moles/Vol] 103 mmol/L Normal 98-107 [facility] Comment on above: Order Comment: Items in this order include: Comprehensive Metabolic Panel, Lipid Panel, Free T4, PSA (Screening Medicare Only), TSH, CBC with differential, Testing Performed By: [facility] [address] [place] [address] CLIA#:[id number] [address] Abbe Celeste, Software Sales Consultant Performed By: #### C 4125, C408, C215, C47, C400, C8 #### [facility] [address] [facility] [address] [place] [address] CO2 [Moles/Vol] 25 mmol/L Normal 20-31 [facility] Comment on above: Order Comment: Items in this order include: Comprehensive Metabolic Panel, Lipid Panel, Free T4, PSA (Screening Medicare Only), TSH, CBC with differential, Testing Performed By: [facility] [address] [place] [address] CLIA#:[id number] Dr. Abbe Celeste, Software Sales Consultant Performed By: #### C 4125, C408, C215, C47, C400, C8 #### [facility] [address] [facility] [address] [place] [address] Creatinine [Mass/Vol] 0.8 mg/dL Normal 0.7-1.3 [facility] Comment on above: Order Comment: Items in this order include: Comprehensive Metabolic Panel, Lipid Panel, Free T4, PSA (Screening Medicare Only), TSH, CBC with differential, Testing Performed By: [facility] [address] [place] [address] CLIA#:[id number] Dr. Abbe Celeste, Software Sales Consultant Performed By: #### C 4125, C408, C215, C47, C400, C8 #### [facility] [address] [facility] [address] [place] [address] GFRCKD 97 mL/min per 1.73 Normal >[address] [facility] Comment on above: Order Comment: Items in this order include: Comprehensive Metabolic Panel, Lipid Panel, Free T4, PSA (Screening Medicare Only), TSH, CBC with differential, Testing Performed By: [facility] [facility] [address] [place] [address] CLIA#:[id number] Dr. Abbe Celeste, Software Sales Consultant Result Comment: The GFR estimate is not adjusted for race. Performed By: #### C 4125, C408, C215, C47, C400, C8 #### [facility] [address] [place] [address] Globulin (S) [Mass/Vol] 2.8 g/dL Normal [facility] Comment on above: Order Comment: Items in this order include: Comprehensive Metabolic Panel, Lipid Panel, Free T4, PSA (Screening Medicare Only), TSH, CBC with differential, Testing Performed By: [facility] [address] [place] [address] CLIA#:[id number] Dr. Abbe Celeste, Software Sales Consultant Performed By: #### C 4125, C408, C215, C47, C400, C8 #### [facility], [facility]. [address] [place] [address] Glucose [Mass/Vol] 101 mg/dL Normal 74-106 [facility] Comment on above: Order Comment: Items in this order include: Comprehensive Metabolic Panel, Lipid Panel, Free T4, PSA (Screening Medicare Only), TSH, CBC with differential, Testing Performed By: [facility] [address] [place] [address] CLIA#:[id number] [address] Abbe Celeste, Software Sales Consultant Performed By: #### C 4125, C408, C215, C47, C400, C8 #### [facility] [address] [place] [address] [address] [place] [address] Potassium [Moles/Vol] 4.2 mmol/L Normal 3.5-5.1 [facility] Comment on above: Order Comment: Items in this order include: Comprehensive Metabolic Panel, Lipid Panel, Free T4, PSA (Screening Medicare Only), TSH, CBC with differential, Testing Performed By: [facility] [address] [place] [address] CLIA#:[id number] [address] Abbe Celeste, Software Sales Consultant Performed By: #### C 4125, C408, C215, C47, C400, C8 #### [facility] [place] [address] Protein [Mass/Vol] 7.3 g/dL Normal 5.7-8.2 [facility] Comment on above: Order Comment: Items in this order include: Comprehensive Metabolic Panel, Lipid Panel, Free T4, PSA (Screening Medicare Only), TSH, CBC with differential, Testing Performed By: [facility] [address] [place] [address] CLIA#:[id number] [address] Abbe Celeste, Software Sales Consultant Performed By: #### C 4125, C408, C215, C47, C400, C8 #### [facility] [address] [place] [address] Sodium [Moles/Vol] 138 mmol/L Normal 136-[address] Comment on above: Order Comment: Items in this order include: Comprehensive Metabolic Panel, Lipid Panel, Free T4, PSA (Screening Medicare Only), TSH, CBC with differential, Testing Performed By: [facility] [address] [place] [address] CLIA#:[id number] Dr. Abbe Celeste, Software Sales Consultant Performed By: #### C 4125, C408, C215, C47, C400, C8 #### [facility] [address] [place] [address] Urea nitrogen [Mass/Vol] 12 mg/dL Normal 9-23 [facility] Comment on above: Order Comment: Items in this order include: Comprehensive Metabolic Panel, Lipid Panel, Free T4, PSA (Screening Medicare Only), TSH, CBC with differential, Testing Performed By: [facility] [address] [place] [address] CLIA#:[id number] Dr. Abbe Celeste, Software Sales Consultant Performed By: #### C 4125, C408, C215, C47, C400, C8 #### [facility] [address] [place] [address] Free T4 (COPC)on 01-16-2023 Free T4 [Mass/Vol] 0.9 ng/dL Normal 0.9-1.[address] [facility] [facility] Comment on above: Performed By: #### C 4125, C408, C215, C47, C400, C8 #### [facility] [address] [place] [address] Lipid Panel (COPC)on 023 Cholesterol [Mass/Vol] 145 mg/dL Normal <200 [facility] Comment on above: Result Comment: Low- risk levels (desirable) < 200 mg/dL Moderate-risk levels (borderline) 200 to 239 mg/dL High-risk levels > or = 240 mg/dL Performed By: #### C 4125, C408, C215, C47, C400, C8 #### [facility] [address] [place] [address] Cholesterol in HDL [Mass/Vol] 46 mg/dL Low >60 [facility] Comment on above: Performed By: #### C 4125, C408, C215, C47, C400, C8 #### [facility] [address] [place] [address] Cholesterol in LDL [Mass/Vol] 88 mg/dL Normal <130 [facility] Comment on above: Performed By: #### C 4125, C408, C215, C47, C400, C8 #### [facility] [address] [place] [address] Cholesterol.total/Ch olesterol in HDL [Mass ratio] 3.2 {ratio} Normal <4.0 [facility] Comment on above: Performed By: #### C 4125, C408, C215, C47, C400, C8 #### [facility] [address] [place] [address] Non-HDL Chol 99 Normal LDL Goal + 30 [facility] Comment on above: Result Comment: LDL and Non-HDL goal dependent upon individual risk Performed By: #### C 4125, C408, C215, C47, C400, C8 #### [facility] [address] [place] [address] Triglyceride [Mass/Vol] 55 mg/dL Normal <150 [facility] Comment on above: Performed By: #### C 4125, C408, C215, C47, C400, C8 #### [facility] [address] [place] [address] VLDL-Calc 11 mg/dl Normal <30 [facility] Comment on above: Performed By: #### C 4125, C408, C215, C47, C400, C8 #### [facility] [address] [place] [address] PSA (Screening Medicare Only ) ([facility])on 01-16-2023 SCRPSA 0.49 ng/mL Normal 0.00-4.00 [facility] Comment on above: Performed By: #### C 4125, C408, C215, C47, C400, C8 #### [facility] [address] [place] [address] TSH ([facility])on 01-16-2023 TSH 2.462 MIU/mL Normal 0.550-4.780 [facility] Comment on above: Performed By: #### C 4125, C408, C215, C47, C400, C8 #### [facility] [address] [place] [address] CT LUNG SCREENINGon 11-18-[address] LUNG SCREENING EXAMINATION TYPE: CT LUNG SCREENING DATE OF EXAM : 11/18/2022 11:07 AM HISTORY: Lung cancer screening, >=20 pk yr current smoker (Age 50-80y) COMPARISON: 08/16/2019, 03/23/2018 FINDINGS: No mediastinal or hilar adenopathy. Heart is not enlarged. No pericardial or pleural effusion. Coronary artery calcifications are noted. Aberrant right subclavian artery is noted. Peripheral right upper lobe scarring. Right lower lobe nodule measuring 1.4 x 1.0 cm image 92, is unchanged dating back to at least March 2018. No new nodules are identified. IMPRESSION: Stable exam, including stable 1.4 cm right lower lobe nodule. Continued annual screening recommended. Lung RADS 2 Lung RADS VERSION 1.1 ASSESSMENT CATEGORIES (2019 update): Lung RADS 0 (incomplete): Additional screening CT images or comparison to prior imaging is needed. Lung RADS 1 (negative): Continue annual screening with low-dose CT in 12 months. Lung RADS 2 (benign appearance or behavior): Continue annual screening with low dose CT in 12 months. Lung RADS 3 (probably benign): Recommend 6 month low-dose CT. Lung RADS 4A (suspicious): Recommend 3 month low-dose CT. PET/CT may be used. Lung RADS 4B (very suspicious): Chest CT with or without contrast, PET/CT and/or tissue sampling depending on the probability of malignancy and comorbidities. S-Modifier: Clinically significant or potentially significant findings (non-lung cancer). -------- FINAL REPORT -------- Dictated By: Luis Ramires Dictated Date: 11/18/2022 14:11 Assigned Physician: Luis Ramires Reviewed and Electronically Signed By: Luis Ramires Signed Date: 11/18/2022 14:16 Workstation ID: [id number] Transcribed By: Self Edit Transcribed Date: 11/18/2022 14:11 Normal [facility] Basic Metabolic Panel [facility] 07-12-2021 Calcium [Mass/Vol] 9.5 mg/dL Normal 8.9-10.3 [facility] Comment on above: Performed By: #### C [id number] #### [facility] Chloride [Moles/Vol] 102 mmol/L Normal 98-107 [facility] Comment on above: Performed By: #### C D:[id number] #### [facility] CO2 [Moles/Vol] 25 mmol/L Normal 22-32 [facility] Comment on above: Performed By: #### C [id number] #### [facility] Creatinine [Mass/Vol] 0.7 mg/dL Normal 0.6-1.3 [facility] Comment on above: Performed By: #### C D:[id number] #### [facility] GFR/1.73 sq M.predicted (S/P/Bld) [Vol rate/Area] mL/min Normal [facility] Comment on above: Performed By: #### C [id number] #### [facility] Glucose [Mass/Vol] 185 mg/dL High 70-99 [facility] Comment on above: Performed By: #### C D:[id number] #### [facility] Potassium post dialysis [Moles/Vol] 4.0 mMol/L Normal 3.6-5.1 [facility] Comment on above: Performed By: #### C D:[id number] #### [facility] Sodium [Moles/Vol] 139 mmol/L Normal 136-145 [facility] Comment on above: Performed By: #### C D:[id number] #### [facility] Urea nitrogen [Mass/Vol] 8 mg/dL Normal 8-20 [facility] Comment on above: Performed By: #### C D:[id number] #### [facility] Blood Gas POCT VBG Blanquita ohara (Uploaded)on 07-12-2021 Calcium.ionized (Bld) [Mass/Vol] 1.20 mMol/L Normal 1.12-1.32 [facility] Comment on above: Performed By: #### 2 4339-4x4 #### [facility] Carboxyhemoglobin (Bld) [Mass fraction] 2.9 % Normal [facility] Comment on above: Result Comment: NON SMOKERS <1.5% SMOKERS 1.5 - 9.0% Performed By: #### 2 4339-4x4 #### [facility] Chemistry studies (set) 21.0 % Normal [facility] Comment on above: Performed By: #### 2 4339-4x4 #### [facility] Chloride [Moles/Vol] 105 mmol/L Normal 98-106 [facility] Comment on above: Performed By: #### 2 4339-4x4 #### [facility] Glucose [Mass/Vol] 182 mg/dL High 70-110 [facility] Comment on above: Performed By: #### 2 4339-4x4 #### [facility] Hemoglobin (Bld) [Mass/Vol] 16.4 g/dL Normal 13.5-17.5 [facility] Comment on above: Performed By: #### 2 4339-4x4 #### [facility] Lactate [Moles/Vol] 1.1 mmol/L Normal 0.5-2.2 [facility] Comment on above: Performed By: #### 2 4339-4x4 #### [facility] Methemoglobin (Bld) [Mass fraction] % Normal 0.2-0.6 [facility] Comment on above: Performed By: #### 2 4339-4x4 #### [facility] Oxygen (BldCoV) [Partial pressure] 52 mmHg High 25-40 [facility] Comment on above: Performed By: #### 2 4339-4x4 #### [facility] Oxyhemoglobin (Bld) [Mass fraction] 86.9 % High 40.0-70.0 [facility] Comment on above: Performed By: #### 2 4339-4x4 #### [facility] pCO2 Venous POCT 38 mmHg Low 41-51 [facility] Comment on above: Performed By: #### 2 4339-4x4 #### [facility] pH Venous POCT 7.43 High 7.31-7.41 [facility] Comment on above: Performed By: #### 2 4339-4x4 #### [facility] Potassium post dialysis [Moles/Vol] 3.8 mEq/L Normal 3.5-5.0 [facility] Comment on above: Performed By: #### 2 4339-4x4 #### [facility] SaO2% (BldCoV) [Mass fraction] 90.0 % High 40.0-70.0 [facility] Comment on above: Performed By: #### 2 4339-4x4 #### [facility] Sodium [Moles/Vol] 140 mmol/L Normal 136-146 [facility] Comment on above: Performed By: #### 2 4339-4x4 #### [facility] CBC POCTon 07-12-2021 Erythrocyte distribution width (RBC) [Entitic vol] 13.5 % Normal 11.0-16.3 [facility] Comment on above: Performed By: #### C D:[id number] #### [facility] Hematocrit (BldA) [Volume fraction] 47.1 % Normal 31.1-57.4 [facility] Comment on above: Performed By: #### C D:[id number] #### [facility] Hemoglobin (Bld) [Mass/Vol] 16.7 g/dL Normal 10.5-17.8 [facility] Comment on above: Performed By: #### C D:[id number] #### [facility] Lymphocytes (Bld) [#/Vol] 1.7 thou/mcL Normal 1.0-4.8 [facility] Comment on above: Performed By: #### C D:[id number] #### [facility] Lymphocytes/100 WBC (Bld) 16.4 % Low 25.0-57.0 [facility] Comment on above: Performed By: #### C D:[id number] #### [facility] MCH (RBC) [Entitic mass] 37.3 Picograms High 27.4-35.7 [facility] Comment on above: Performed By: #### C D:[id number] #### [facility] MCHC (RBC) [Mass/Vol] 35.5 g/dL Normal 32.7-36.7 [facility] Comment on above: Performed By: #### C D:[id number] #### [facility] MCV (RBC) [Entitic vol] 105.1 fL High 82.5-102.0 [facility] Comment on above: Performed By: #### C D:[id number] #### [facility] Neutrophils (Bld) [#/Vol] 8.0 thou/mcL High 1.8-7.7 [facility] Comment on above: Performed By: #### C D:[id number] #### [facility] Neutrophils/100 WBC (Bld) 77.9 % High 37.0-75.0 [facility] Comment on above: Performed By: #### C D:[id number] #### [facility] Platelet mean volume (Bld) [Entitic vol] 10.4 fL Normal 8.5-13.5 [facility] Comment on above: Performed By: #### C D:[id number] #### [facility] Platelets (Bld) [#/Vol] 267 thou/mcL Normal 166-400 [facility] Comment on above: Performed By: #### C D:[id number] #### [facility] RBC (Bld) [#/Vol] 4.48 million/mcL Normal 3.30-6.06 [facility] Comment on above: Performed By: #### C D:[id number] #### [facility] WBC (Bld) [#/Vol] 10.3 thou/mcL Normal 5.2-17.1 [facility] Comment on above: Performed By: #### C D:[id number] #### [facility] WBC other (Bld) [#/Vol] 0.6 thou/mcL Normal 0.1-1.3 [facility] Comment on above: Performed By: #### C D:[id number] #### [facility] WBC other/100 WBC (Bld) 5.7 % Normal 1.2-11.4 [facility] Comment on above: Performed By: #### C D:[id number] #### [facility] Coronavirus (COVID-19/SARS-C oV-2) [facility] 07-12-2021 SARS-CoV-2 (COVID-19) RdRp gene RANDY+probe Ql (Resp) Not detected Normal [facility] Comment on above: Result Comment: This test was performed via the [employer] NOW COVID-19 assay and has been authorized by FDA under an Emergency Use Authorization (EUA). The assay is validated for nasopharyngeal (RETAIL MAINTENANCE TECHNICIAN), nasal, and oropharyngeal (OP) direct swabs. The limit of detection of the assay is approximately 125 genome equivalence/mL; however, detection of SARS-CoV-2 may be affected by the sample collection and transport methods, patient factors (e.g., presence of symptoms, and/or stage of infection), and a negative result does not rule out the possibility of infection. For updated information, refer to the Center for Disease Control website: www.cdc.gov/coronavirus. Performed By: #### 9 4534-5 #### [facility] D-Dimer POCTon 07-12-2021 Fibrin D-dimer Qn (PPP) 339 mcg/mL Normal 0-400 [facility] Comment on above: Performed By: #### C D:[id number] #### [facility] ED Pat Eduon 07-12-2021 ED Pat [facility] [address] [place] [address] [phone] Emergency Department Discharge Instructions ALEJANDRO MARADIAGA, Please provide this information to your Primary Care/Specialist Name: ALEJANDRO MARADIAGA Current Date : 07/12/2021 09:45:39 : 1955 Primary Care Physician: Elle Cortes MD Diagnosis : COPD exacerbation; Pneumonia Follow-Up Instructions: ALEJANDRO MARADIAGA has been given these follow-up instructions: FOLLOW-UP APPOINTMENTS: Provider: Specialty: Address: Date: Elle Cortes MD Internal Medicine [address] [place] [address] (1) Comment: Call for an Appointment Laboratory Orders: Name: Status: CBC POCT for Docking Process Completed Basic Metabolic Panel POCT for Docking P Completed Hepatic Function Panel POCT for Docking Completed Troponin POCT for Docking Process Completed Blood Gas Venous POCT Docking Process Ordered Coronavirus (COVID-19/SARS-CoV-2) POCT f Completed D-Dimer POCT for Docking Process Completed Blood Gas POCT VBG Lytes Lactate (Uploaded) Completed CBC POCT Completed Hepatic Function Panel POCT Completed Basic Metabolic Panel POCT Completed Troponin I POCT iStat Completed Coronavirus (COVID-19/SARS-CoV-2) POCT Completed D-Dimer POCT Completed Radiology Orders: Name: Status: XR Chest 1 View Completed Diagnostic Tests: Name: Status: ECG 12 Lead Completed Procedure(s) and Patient Education(s) : Community-Acquired Pneumonia, Adult; Chronic Obstructive Pulmonary Disease EMERGENCY SERVICES MEDICATION LIST Lista de Medicaciones de los Servicios de Emergencia Name ALEJANDRO MARADIAGA MRN (COL)-[id number] PLEASE READ THE FOLLOWING REGARDING YOUR MEDICATIONS Based on the information available during your visit we have given you the medication instructions below. Continue taking medications you took prior to your visit unless you have been told to change. Please share this information with your own doctor. Carry a list of your medications with you in case of an emergency. Update it when medications are stopped, doses are changed, or new medications (including eklx-kty-pgnbirt products) are added. If you have any questions, check with your doctor. Por la informaci??n disponible julia jaimes visita, las instrucciones de medicaci??n aparecen debajo. Favor de continuar tomando las medicaciones Ud. barbie?? antes de jaimes visita por lo menos que hay cambios. Favor de compartir esta informaci??n con jaimes medico. Lleva rodrigo lista de medicaciones consigo por theresa de emergenc??a. Actualiza la lista cuando Ud. nelli de devi las medicaciones, si cambian las dosis, o si hay nuevas medicaciones a??adidas (incluyendo medicaciones vendidas sin prescripci??n). Favor de preguntar a jaimes medico por cualquier miguel. THESE ARE THE MEDICATIONS YOU SHOULD BE TAKING albuterol (ProAir HFA 90 mcg/Puff MDI) 2 Puff(s) Inhalation As Needed. amoxicillin-clavulana te (Augmentin 875 mg-125 mg oral tablet) 1 Tab(s) By Mouth every 12 hours for 10 Days. Refills: 0. azithromycin (Azithromycin 5 Day Dose Pack 250 mg oral tablet) 1 Tab(s) By Mouth once a day for 5 Days. Refills: 0. famotidine (Pepcid 20 mg oral tablet) 1 Tab(s) By Mouth Every Other Day. montelukast (Singulair 10 mg oral tablet) 1 Tab(s) By Mouth every evening. multivitamin 1 Tab(s) By Mouth every evening. PredniSONE (predniSONE 20 mg oral tablet) 2 Tab(s) By Mouth once a day for 5 Days. Refills: 0. umeclidinium-vilanter ol (Anoro Ellipta 62.5 mcg-25 mcg inhalation powder) MEDICATIONS GIVEN DURING MEDICAL VISIT Sodium Chloride 0.9% 1,000 mL last dose given on 07/12/2021 at 06:45 Route: Intravenous Bolus Infuse over 60 mins Warm IV fluids albuterol-ipratropium 3 mL last dose given on 07/12/2021 at 06:45 Route: Nebulized Medication methylprednisolone 125 mg last dose given on 07/12/2021 at 06:45 Route: Intravenous Give Slowly Over 1-3 Minutes - Auto Substitute IV Push for IVPB Reconstitute with 2mL of sterile water for reconstitution for a final concentration of 62.5 mg/mL If using acto-vials, disregard this note as these vials already have the diluent included and DO NOT REQUIRE FURTHER RECONSTITUTION diphenhydramine 25 mg last dose given on 07/12/2021 at 07:26 Route: IV Push Administer at 25 mg/min (for IV Push). metoclopramide 10 mg last dose given on 07/12/2021 at 07:24 Route: IV Push Lower doses can be given IV push undiluted over 1 to 2 minutes. albuterol-ipratropium 3 mL last dose given on 07/12/2021 at 07:29 Route: Nebulized Medication magnesium sulfate 2 Gm last dose given on 07/12/2021 at 07:32 Route: IV Piggyback GIVE OVER 20 MINUTES albuterol 2.5 mg last dose given on 07/12/2021 at 09:04 Route: Nebulized Medication albuterol-ipratropium 3 mL last dose given on 07/12/2021 at 09:04 Route: Nebulized Medication NON-MEDICATION PRESCRIPTION SCHEDULING PHONE NUMBER: MEDICATION CHANGE DETAILS (Not your F (more content not included)... Normal [facility] Hepatic Function Panel POCTo n 07-12-2021 Albumin [Mass/Vol] 4.3 g/dL Normal 3.5-4.8 [facility] Comment on above: Performed By: #### C [id number] #### [facility] ALP (S/P/Bld) [Catalytic activity/Vol] 94 Units/L High 32-91 [facility] Comment on above: Performed By: #### C D:[id number] #### [facility] ALT/Aspartate aminotransferase [Catalytic ratio] 88 Units/L High 7-52 [facility] Comment on above: Performed By: #### C D:[id number] #### [facility] Amylase [Catalytic activity/Vol] 38 Units/L Normal 26-100 [facility] Comment on above: Performed By: #### C D:[id number] #### [facility] AST [Catalytic activity/Vol] 70 Units/L High 15-41 [facility] Comment on above: Performed By: #### C D:[id number] #### [facility] Bilirubin [Mass/Vol] 1.2 mg/dL Normal 0.3-1.2 [facility] Comment on above: Performed By: #### C [id number] #### [facility] Gamma glutamyl transferase [Catalytic activity/Vol] 293 Units/L High 7-50 [facility] Comment on above: Performed By: #### C D:[id number] #### [facility] Protein [Mass/Vol] 8.0 g/dL High 6.1-7.9 [facility] Comment on above: Performed By: #### C D:[id number] #### [facility] Troponin I POCT [facility] Troponin I.cardiac [Mass/Vol] 0.00 ng/mL Normal <0.08 [facility] Comment on above: Performed By: #### 4 2757-5x1 #### [facility] XR Chest 1 Viewon 07-12-2021 XR Chest Single view EXAMINATION TYPE: X R Chest 1 View DATE OF EXAM : 07/12/2021 7:05 AM HISTORY: SOB COMPARISON: 05/08/2021 FINDINGS: Normal heart size. Normal mediastinal silhouette. Mild patchy infiltrates in the right midlung. Stable linear scarring in the left midlung. No large pleural effusion. No pneumothorax. IMPRESSION: Mild right midlung opacity suspicious for infiltrate. [place] thanks you for the opportunity to care for your patient. Workstation ID: [id number] - [id number] FINAL REPORT Dictated By: Kodi Mohan MD 07/12/2021 07:12 Assigned Physician: Kodi Mohan MD Reviewed and Electronically Signed By: Kodi Mohan MD 07/12/2021 07:14 Transcribed by: BASILIO 07/12/2021 07:12 Technologist: ERIBERTO Ernst [facility] XR Chest 2 Viewson XR Chest 2 Views EXAMINATION TYPE: XR Chest 2 Views DATE OF EXAM : 05/08/2021 8:15 AM HISTORY: Chronic obstructive pulmonary disease, unspecified FINDINGS: There is a comparison 06/08/2019. Heart is stable in size. The lungs are expanded and clear. There is no pleural effusion. Pulmonary vascularity is normal. There are changes of emphysema. IMPRESSION: No acute cardiopulmonary disease [place] thanks you for the opportunity to care for your patient. Workstation ID: [id number] - [id number] FINAL REPORT Dictated By: Lisa Parrish MD 05/08/2021 08:29 Assigned Physician: Lisa Parrish MD Reviewed and Electronically Signed By: Lisa Parrish MD 05/08/2021 08:29 Transcribed by: BASILIO 05/08/2021 08:29 Technologist: ZAID Ernst [facility] Vital Signs Date Time Vital Sign Value Performing Clinician Facility 10-24-2023 10:30-0500 Body height 175.26 cm Shanell Craig Other [facility] Other 10-24-2023 10:30-0500 Body mass index (BMI) [Ratio] 23.03 kg/m2 Shanell Craig Other [facility] Other 10-24-2023 10:30-0500 Body weight 70.76 kg Shanell Craig Other [facility] Other 10-24-2023 10:30-0500 Diastolic blood pressure 71 mm[Hg] Shanell Craig Other [facility] Other 10-24-2023 10:30-0500 SaO2% (BldA) [Mass fraction] 97 % Shanell Craig Other [facility] Other 10-24-2023 10:30-0500 Systolic blood pressure 118 mm[Hg] Shanell Craig Other [facility] Other 09-01-2023 08:30-0400 Body height 175.26 cm Irma Velezricardo Other [facility] Other 09-01-2023 08:30-0400 Body mass index (BMI) [Ratio] 24.81 kg/m2 Irma Velezban Other [facility] Other 09-01-2023 08:30-0400 Body temperature 97.2 [degF] Irma Rosieban Other [facility] Other 09-01-2023 08:30-0400 Body weight 76.2 kg Irma Velezban Other [facility] Other 09-01-2023 08:30-0400 Diastolic blood pressure 82 mm[Hg] Bobbyal Rosieban Other [facility] Other 09-01-2023 08:30-0400 Respiratory rate 20 /min Irma Chaban Other [facility] Other 09-01-2023 08:30-0400 SaO2% (BldA) [Mass fraction] 98 % Bobbyal Rosieban Other [facility] Other 09-01-2023 08:30-0400 Systolic blood pressure 120 mm[Hg] Irma Velezban Other [facility] Other 06-20-2023 08:30-0400 Body height 172.72 cm Shanell Craig Other [facility] Other 06-20-2023 08:30-0400 Body mass index (BMI) [Ratio] 27.06 kg/m2 Shanell Craig Other [facility] Other 06-20-2023 08:30-0400 Body weight 80.74 kg Shanell Craig Other [facility] Other 06-20-2023 08:30-0400 Diastolic blood pressure 72 mm[Hg] Shanell Craig Other [facility] Other 06-20-2023 08:30-0400 Systolic blood pressure 133 mm[Hg] Shanell Craig Other [facility] Other 11-14-2022 10:36-0500 Body height 180.3 cm Rhonda Kaiser MD Work Phone: [facility] 11-14-2022 10:36-0500 Body mass index (BMI) [Ratio] 24.23 kg/m2 Rhonda Kaiser MD Work Phone: [facility] 11-14-2022 10:36-0500 Body temperature 97.59 [degF] Rhonda Kaiser MD Work Phone: [facility] 11-14-2022 10:36-0500 Body weight 78.79 kg Rhonda Kaiser MD Work Phone: [facility] 11-14-2022 10:36-0500 Diastolic blood pressure 80 mm[Hg] Rhonda Kaiser MD Work Phone: [facility] 11-14-2022 10:36-0500 Heart rate 75 /min Rhonda Kaiser MD Work Phone: [facility] 11-14-2022 10:36-0500 Respiratory rate 16 /min Rhonda Kaiser MD Work Phone: [facility] 11-14-2022 10:36-0500 SaO2% (BldA) [Mass fraction] 96 % Rhonda Kaiser MD Work Phone: [facility] Comment on above: ra/rest 11-14-2022 10:36-0500 Systolic blood pressure 168 mm[Hg] Rhonda Kaiser MD [facility]: [facility] Encounters Encounter Date Encounter Type Care Provider Facility Start: 12-01-2023 End: 12-01-2023 ambulatory Tima Devon Other [facility] Start: 12-01-2023 Telephone encounter Tima barrientos [facility] Start: 11-27-2023 End: 11-27-2023 ambulatory Shanell Craig Facility:[facility] Start: 11-04-2023 End: 11-04-2023 ambulatory Shanell Craig Other [facility] Start: 11-04-2023 Telephone encounter Shanell Craig [facility] Start: 10-24-2023 End: 10-24-2023 ambulatory Shanell Craig Other [facility] Start: 10-24-2023 Office outpatient visit 25 minutes Shanell Craig [facility] Start: 10-24-2023 Telephone encounter Shanell Craig [facility] Start: 10-22-2023 Telephone encounter Irma Ontiveros [facility] Start: 10-22-2023 End: 10-22-2023 ambulatory LALIT BULMARO [facility] Start: 10-18-2023 Evaluation and management of inpatient [facility] Start: 10-17-2023 Evaluation and management of inpatient [facility] Start: 10-17-2023 Evaluation and management of inpatient [facility] Start: 10-16-2023 Evaluation and management of inpatient JOSE REED [facility] Start: 10-16-2023 Evaluation and management of inpatient JOSE REED [facility] Start: 10-15-2023 Evaluation and management of inpatient ELVIRA WESTON [facility] Start: 10-15-2023 End: 10-18-2023 Evaluation and management of inpatient SHAIKH QUINCY [facility] Start: 09-01-2023 End: 09-01-2023 ambulatory Irma Ontiveros Other [facility] Start: 09-01-2023 Office outpatient ne w 45 minutes Irma Ontiveros [facility] Start: 08-25-2023 End: 08-25-2023 ambulatory Shanell Craig Other [facility] Start: 08-25-2023 Telephone encounter Shanell Craig [facility] Start: 07-08-2023 End: 07-08-2023 ambulatory Shanell Craig Other [facility] Start: 07-08-2023 Telephone encounter Shanell Craig [facility] Start: 06-20-2023 End: 06-20-2023 ambulatory Shanell Craig Other [facility] Start: 06-20-2023 Office outpatient ne w 30 minutes Shanell Craig [facility] Start: 03-03-2023 ambulatory AVA GODFREY [facility] Start: 11-25-2022 End: 11-25-2022 ambulatory JENNI NOBLET JENNI [facility] Start: 11-25-2022 End: 11-25-2022 ambulatory Jenni Noblet [facility] [place] Comment on above: Spondylosis without myelopathy or radiculopathy, cervical region (Primary Dx); Neck pain; Cervicalgia; Chronic left shoulder pain; Left shoulder pain, unspecified chronicity Start: 11-25-2022 End: 11-25-2022 Treatment Jenni Noblet PT [facility] Start: 11-20-2022 End: 11-20-2022 ambulatory [facility] Comment on above: Spondylosis without myelopathy or radiculopathy, cervical region (Primary Dx); Neck pain; Cervicalgia; Chronic left shoulder pain; Left shoulder pain, unspecified chronicity Start: 11-20-2022 End: 11-20-2022 Treatment Jenni [facility] Start: 11-18-2022 End: 11-18-2022 ambulatory Jenni Noblet PT [facility] Comment on above: Spondylosis without myelopathy or radiculopathy, cervical region (Primary Dx); Neck pain; Cervicalgia; Chronic left shoulder pain; Left shoulder pain, unspecified chronicity Start: 11-18-2022 End: 11-18-2022 Treatment Jenni Noblet PT [facility] Start: 11-15-2022 Refill Sheila Ace [facility] [place] Start: 11-15-2022 Refill Sheila Ace MA [facility] [place] Start: 11-14-2022 End: 11-14-2022 ambulatory JENNI NOBLET JENNI [facility] Start: 11-14-2022 End: 11-14-2022 ambulatory Jenni Noblet PT [facility] Comment on above: Spondylosis without myelopathy or radiculopathy, cervical region (Primary Dx); Neck pain; Cervicalgia; Chronic left shoulder pain; Left shoulder pain, unspecified chronicity Start: 11-14-2022 End: 11-14-2022 Treatment Jenni Noblet PT [facility] Start: 11-14-2022 End: 11-14-2022 ambulatory RHONDA KAISER [facility] Start: 11-14-2022 End: 11-14-2022 Office outpatient new 45 minutes Rhonda Kaiser MD Work Phone: [facility] [place] Comment on above: Nicotine dependence, uncomplicated, unspecified nicotine product type (Primary Dx); Chronic obstructive pulmonary disease, unspecified COPD type ([facility]) Start: 11-14-2022 End: 11-14-2022 Patient encounter procedure Rhonda Kaiser MD Work Phone: [facility] [place] Start: 11-12-2022 End: 11-12-2022 ambulatory Jenni Noblet [facility] Comment on above: Spondylosis without myelopathy or radiculopathy, cervical region (Primary Dx); Neck pain; Cervicalgia; Chronic left shoulder pain; Left shoulder pain, unspecified chronicity Start: 11-12-2022 End: 11-12-2022 Treatment Jenni Noblet PT [facility] Start: 11-05-2022 End: 11-05-2022 ambulatory JENNI NOBLET JENNI [facility] Start: 11-05-2022 End: 11-05-2022 ambulatory Jenni Noblet PT [facility] Comment on above: Spondylosis without myelopathy or radiculopathy, cervical region (Primary Dx); Neck pain; Cervicalgia; Chronic left shoulder pain; Left shoulder pain, unspecified chronicity Start: 11-05-2022 End: 11-05-2022 Treatment Jenni Noblet PT [facility] Start: 10-30-2022 End: 10-30-2022 ambulatory JENNI NOBLET JENNI [facility] Start: 10-30-2022 End: 10-30-2022 ambulatory Jenni Noblet PT [facility] Comment on above: Spondylosis without myelopathy or radiculopathy, cervical region (Primary Dx); Neck pain Start: 10-30-2022 End: 10-30-2022 Evaluation Jenni Noblet PT [facility] Start: 02-06-2022 End: 02-06-2022 ambulatory TAGGE KALIE TIANA KALIE~[id number] [facility] Start: 02-06-2022 End: 02-06-2022 ambulatory Kalie Tagge PT [facility] Comment on above: Cervicalgia (Primary Dx) Start: 02-06-2022 End: 02-06-2022 Treatment Kalie Tiana PT [facility] Start: 02-04-2022 End: 02-04-2022 ambulatory STORM INMAN [facility] [place] Start: 01-28-2022 End: 01-28-2022 ambulatory STORM INMAN [facility] [place] Start: 01-24-2022 End: 01-24-2022 ambulatory TAGGE KALIERED MONTIEL KALIE~[id number] [facility] [place] Plan of Treatment Date Care Activity Detail Author Start: 10-31-2026 Lipid panel Cholesterol [facility] (Lipid Panel) [facility] Start: 11-18-2023 End: 11-18-2023 Patient encounter procedure 11/18/2023 Appointment Radiology [facility] Eliza Start: 11-28-2022 End: 11-28-2022 ambulatory 11/28/2022 Treatment Physical Therapy Jenni Huang, PT [facility] Start: 11-28-2022 End: 11-28-2022 ambulatory 11/28/2022 Treatment Physical Therapy Jenni Huang, PT [facility] Start: 11-25-2022 End: 11-25-2022 ambulatory 11/25/2022 Treatment Physical Therapy Jenni Huang, PT [facility] Start: 11-25-2022 End: 11-25-2022 ambulatory 11/25/2022 Treatment Physical Therapy Jenni Huang, PT [facility] Start: 11-20-2022 End: 11-20-2022 ambulatory 11/20/2022 Treatment Physical Therapy Jenni Huang, PT [facility] Start: 11-18-2022 End: 11-18-2022 Patient encounter procedure 11/18/2022 Appointment Radiology [facility] Gayle Start: 11-18-2022 End: 11-18-2022 ambulatory 11/18/2022 Treatment Physical Therapy Jenni Huang, PT [facility] Start: 11-14-2022 End: 11-14-[address] Lung Screening Imaging Routine Nicotine dependence, uncomplicated, unspecified nicotine product type Expected: 11/14/2022, Expires: 11/14/2023 [facility] Work Phone: Comment on above: Expected: 11/14/2022 , Expires: 11/14/2023 Start: 11-14-2022 End: 11-14-2022 ambulatory 11/14/2022 Treatment Physical Therapy Jenni Huang, PT [facility] Start: 11-14-2022 End: 11-14-2022 Patient encounter procedure 11/14/2022 Office Visit Pulmonology Rhonda Kaiser MD [address] [place] [address] [facility] [place] Start: 11-12-2022 End: 11-12-2022 ambulatory 11/12/2022 Treatment Physical Therapy Jenni Huang, PT [facility] Start: 11-05-2022 End: 11-05-2022 ambulatory 11/05/2022 Treatment Physical Therapy Jenni Huang, PT [facility] Start: 10-31-2022 Hypertension/CHF/CAD Annual BMP Blood Test Hypertension/CHF/CAD Annual BMP Blood Test [facility] Start: 10-31-2022 Screening for malign ant neoplasm of colon Colorectal Cancer Screening: Stool Based Tests (FOBT/FIT) [facility] Start: 12-20-2021 COVID-19 Vaccine (4 - Booster for Moderna series) COVID-19 Vaccine (4 - Booster for Moderna series) [facility] Start: 2020 Falls Risk Assessment Falls Risk Ass essment [facility] Start: 11-25-2019 Abdominal aortic aneurysm screening Abdominal Aortic Aneurysm (AAA) Screen [facility] Start: 11-25-2019 Adolescent depressio n screening assessment Depression Screening [facility] Start: 11-25-2019 Hepatitis C screening Hepatitis C Sc reening [facility] Start: 11-25-2019 Medicare Annual Wellness Visit Medicare Annual Wellness Visit [facility] Start: 11-25-2019 Social Influencers o f Health Screening Social Influencers of Health Screening [facility] Start: 2005 Zoster Vaccines (1 o f 2) Zoster Vaccines (1 of 2) [facility] Start: 1974 DTaP,Tdap,and Td Vaccines (1 - Tdap) DTaP,Tdap,and Td Vaccines (1 - Tdap) [facility] Start: 1956 Hepatitis A Vaccines (1 of 2 - Risk 2-dose series) Hepatitis A Vaccines (1 of 2 - Risk 2-dose series) [facility] Payers Date Payer Category Payer Self-pay 2023 Medicare [id number] 2022 Medicare [id number] 2020 Medicare MEDICARE MEDICAR E PART A & B [id number] 2020-Present [address] [place] [address] Medicare [id number] 2020 Medicare [id number] 2020 Medicare [id number] 2014 Private Health Insurance AETNA D OMESTIC AETNA DOMESTIC [id number] 2014-Present [address] [address] [place] [address] [id number] 2014 Private Health Insurance A[employer]NA D OMESTIC AETNA DOMESTIC [id number] 2014-Present [address] [place] [address] [id number] 2014 Private Health Insurance [id number] 1955 Unknown [id number] 143 1955 Unknown [id number] 2.16.840.1.069717.3.579.2.1 143 1955 Unknown [id number] 2.16.840.1.945882.3.579.2.1 143 1955 Unknown [id number] 2.16.840.1.973390.3.579.2.1 143 1955 Unknown [id number] 2.16.840.1.472951.3.579.2.1 143 1955 Unknown [id number] 2.16.840.1.095554.3.579.2.1 143 1955 Unknown [id number] 2.16.840.1.440855.3.579.2.1 143 1955 Unknown [id number] 2.16.840.1.090106.3.579.2.1 143 1955 Unknown [id number] 2.16.840.1.362093.3.579.2.1 143 1955 Unknown [id number] 2.16.840.1.569478.3.579.2.1 143 1955 Unknown [id number] 2.16.840.1.262386.3.579.2.1 143 1955 Unknown [id number] 2.16.840.1.305015.3.579.2.1 143 1955 Unknown [id number] 2.16.840.1.331343.3.579.2.1 143 1955 Unknown [id number] 2.16.840.1.204787.3.579.2.1 143 Unknown [id number] [id number] 31 Social History Date Type Detail Facility Tobacco smoking stat [facility] Tobacco smoking consumption unknown [facility] Start: 1955 Sex Assigned At Not on file [facility] Start: 10-19-2022 End: 11-18-2022 Exposure to SARS-CoV-2 (event) Not sure [facility] Start: 11-14-2022 Tobacco smoking status NHIS Ex-smoker [facility] History of tobacco use Current smoker Tri mushtaq [facility] History of tobacco use Cigarette Smoker [facility] Start: 11-14-2022 Cigarettes smoked current (pack per day) - Reported 0.5 [facility] Sex Assigned At Sex Assigned At Bir th [facility] Other Clinical Notes 08-29-2020 to 12-01-2023 Note Date & Type Note Facility 12-01-2023 Evaluation note Encounter Date Diagnosis Assessment Notes Nov, Severe chronic obstructive pulmonary disease (ICD-10 - J44.9) [facility] Other 12-15-2023 Evaluation note* Encounter Date Diagnosis Assessment Notes Treatment Notes Treatment Clinical Notes Oct, Unspecified atrial fibrillation (ICD-10 - I48.91) Continue meds, followup w cardio. Pt has not heard from Cardiac rehab, will reach out as he was referred by [facility] Oct, Unspecified atrial flutter (ICD-10 - I48.92) Oct, Chronic systolic congestive heart failure (ICD-10 - I50.22) Pt symptoms are improving. Oct, Sepsis due to Escherichia coli without acute organ dysfunction (ICD-10 - A41.51) Resolved. Has finished course of antibiotics Oct, Severe chronic obstructive pulmonary disease (ICD-10 - J44.9) Pt on nicotine patch. Continue to followup w pulmonology. [facility] Other [id number] [facility] SUBJECT[facility] Chief Complaint Patient presents with Hospital Follow-up Atrial Flutter Congestive Heart Failure Alejandro Maradiaga is a 68 y.o. male here for follow-up after his recent admission to [facility]. HPI He initially presented to [facility] with c/o back pain and nausea. He was found to have a UTI along with a.flutter with RVR and acute systolic heart failure. He underwent a cardiac cath which found mild CAD. He also underwent a TESS with cardioversion. He states he is feeling well overall. He continues to try to quit smoking. Denies c/o CP, dyspnea, orthopnea, PND, LE edema, dizziness/LH, palpitations, syncope. Discharge Summary Final Discharge Diagnosis: Atrial Flutter with variable AV conduction Heart failure reduced ejection fraction, TTE performed at outside hospital revealed ejection fraction of 20 to 25%. NYHA Class II Urinary tract infection, urine culture positive for E. Coli. Hypomagnesemia Admission Diagnosis: Atrial fibrillation, unspecified type ([facility]) [I48.91] Hospital course: Alejandro Maradiaga is a 68 y.o. male presented emergency department as a transfer from [facility] for uncontrolled atrial flutter. Patient eventually presented to [facility] on 10/13/2020 treated with chief complaint of nausea vomiting flank pain. UA was consistent with urinary tract infection and patient was placed on Rocephin. Patient presented to outside hospital with HR in the 130s at that time and was found to have atrial flutter on EKG. Urine culture reportedly revealed E. coli and blood cultures remain negative. Patient remained in atrial flutter despite multiple doses of digoxin, patient was transferred for possible cardioversion by cardiology here at [facility]. Echocardiogram revealed atrial flutter with right bundle branch block and left axis deviation with a rate of 111 bpm. Ejection fraction of 20 to 25% Patient underwent on 10/17/23: TESS CV and Lt/Rt HC showed: normal RHC and mild CAD Patient converted to SR and started on GDMT regimen. He also completed UTI treatment with Rocephin on 10/17/23. Being discharged today and to F/U with Cardiology in 1 week Patient Active Problem List Diagnosis Atrial fibrillation, unspecified type ([facility]/H[facility]) Acute pyelonephritis Systolic CHF (CMS/HCC) COPD (chronic obstructive pulmonary disease) ([facility]) Past Medical History: Diagnosis Date Abnormal ECG Arrhythmia Atrial fibrillation ([facility]) CHF (congestive heart failure) ([facility]) Family History Problem Relation Name Age of Onset Stroke Mother Social History Tobacco Use Smoking status: Every Day Packs/day: 0.50 Years: 15.00 Additional pack years: 0.00 Total pack years: 7.50 Types: Cigarettes Start date: 11/10/1979 Smokeless tobacco: Never Substance Use Topics Alcohol use: Not Currently Allergies Allergen Reactions Adenosine Anaphylaxis Latex Shortness of breath Review of Systems Constitutional: Negative for chills, decreased appetite, fever, malaise/fatigue and weight gain. Cardiovascular: Negative for chest pain, dyspnea on exertion, irregular heartbeat, leg swelling, near-syncope, orthopnea, palpitations, paroxysmal nocturnal dyspnea and syncope. Hematologic/Lymphatic: Negative for bleeding problem. Does not bruise/bleed easily. OBJECTIVE Visit Vitals BP 118/58 (BP Location: Right arm, Patient Position: Sitting) Pulse 59 Ht 1.803 m (5' 11 ) Wt 66.2 kg (146 lb) SpO2 96% BMI 20.36 kg/m??? Smoking Status Every Day BSA 1.82 m??? Medications: Current Outpatient Medications: albuterol 90 mcg/actuation inhaler, Inhale 1 puff in the morning., Disp: , Rfl: atorvastatin (Lipitor) 10 mg tablet, Take 10 mg by mouth in the morning., Disp: , Rfl: pajrkrblnly-xljlthoyr-olxwagff 200-62.5-25 mcg blister with device, Inhale in the morning., Disp: , Rfl: ipratropium-albuteroL (Duo-Neb) 0.5-2.5 mg/3 mL nebulizer solution, Take 3 mL by nebulization in the morning and at bedtime. 2.5mg base, Disp: , Rfl: montelukast (Singulair) 10 mg tablet, Take 10 mg by mouth at bedtime., Disp: , Rfl: apixaban (Eliquis) 5 mg tablet, Take 1 tablet (5 mg) by mouth in the morning and at bedtime., Disp: 180 tablet, Rfl: 3 aspirin 81 mg EC tablet, Take 1 tablet (81 mg) by mouth in the morning., Disp: 90 tablet, Rfl: 3 dapagliflozin propanediol (Farxiga) 10 mg, Take 1 tablet (10 mg) by mouth in the morning., Disp: 90 tablet, Rfl: 3 lisinopril 5 mg tablet, Take 1 tablet (5 mg) by mouth in the morning., Disp: 90 tablet, Rfl: 3 metoprolol succinate XL (Toprol-XL) 25 mg 24 hr tablet, Take 1 tablet (25 mg) by mouth in the morning. Do not crush or chew., Disp: 90 tablet, Rfl: 3 nicotine (Nicoderm CQ) 14 mg/24 hr patch, Place 1 patch on the skin 1 (one) time each day at the same time. Apply 14mg patch daily x6 weeks then 7mg patch daily x 2 weeks; remove old patch before rabia (more content not included)... [facility]12-13-2023 NotePatient here for follow up [facility]. He underwent heart cath with Dr. Mckeon, and TESS/cardioversion. Feels better s/p discharge. Denies chest pain, SOB, lightheadedness/syncope, palpitations, and bleeding on Eliquis. Review of Systems Gastrointestinal: Positive for diarrhea.[facility] 10-18-2023 Note Attestation signed by Alex Reyes MD at 10/18/2023 2:21 PM I personally saw and examined the patient on the same date of service as resident/fellow Dr. Keane. I discussed the findings and therapeutic plan with the resident/fellow Dr. Villarreal. I agree with the documentation, except for any edits/updates below. Teaching Physician's Revisions: The patient presented to [facility] after being transferred from outside for atrial flutter with RVR. He also found to have 20% EF. The patient has fatigue and cardioverted back to normal sinus rhythm. Also he had heart catheterization that showed nonobstructive CAD and needed normal hemodynamic. Will maximize medical therapy. Patient will follow-up for atrial flutter ablation. Cardiology Progress Note Subjective Subjective: Alejandro Maradiaga is a 68 y.o. male seen and examined at bedside this morning. No acute events overnight. Status TESS with cardioversion and LHC/RHC post-op day 01. Patient reports no chest pain, palpitations, dizziness, or leg swelling. Patient wants to go home. Objective Objective: @IPVITALS@ Physical Examination: GENERAL: AOx3, in no acute distress. HEAD: Atraumatic, normocephalic. EYES: GURVINDER, EOMI. NECK: No JVD present. CARDIAC: RRR. No murmur, rubs, or gallops. RESPIRATORY: CTAB, no increased effort of breathing. ABDOMEN: Soft, nontender, nondistended. EXTREMITIES: No lower extremity edema, peripheral pulses are 2+ bilaterally. NEURO: No focal deficits Relevant Lab Results Encounter Date: 10/15/23 ECG 12 lead Result Value Ventricular Rate 80 Atrial Rate 80 AK Interval 222 QRS DURATION 154 QT Interval 410 QTC CALCULATION(BAZETT) 472 P Ripley 79 R-Ripley -79 T Wave Ripley 60 Impression Atrial-sensed ventricular-paced rhythm with prolonged AV conduction Abnormal ECG When compared with ECG of 17-OCT-2023 12:57, Electronic ventricular pacemaker has replaced Sinus rhythm Confirmed by Fvaio REYES, ALEX Ventura ([id number]) on 10/18/2023 1:30:00 PM Lab Results Component Value Date TROPONINI 0.03 10/17/2023 Transesophageal Echo (TESS) Result Date: 10/17/2023 1 1 [facility] Heart Station [address] [place] [address] [phone] (fax) Echocardiogram-[facility] Name: ALEJANDRO MARADIAGA Study Date: 10/17/2023 12:13 PM B/P: 125 mmHg/93 mmHg HR: 144 bpm Date of : 1955 Location: [facility] Height: 71 in. Age: 68 year(s) Patient Room: 3129 Weight: 157 lb. Gender: Male Patient Status: InPt BSA: 1.9 m2 Indication: Atrial Fibrillation, Pre-cardioversion Examination: TESS (Transesophageal Echo / CFI), Agitated Saline Image Quality: Excellent Patient Consent: Informed, written consent was obtained for the procedure Exam Details Contrast: I.V. dose of agitated saline Exam Location: A TESS was performed in the Nurse Practitioner Per Diem without complications Anesthesia Pharyngeal anesthesia with viscous Lidocaine Conclusions Left Ventricle: Global left ventricular systolic function is severely reduced. The EF is 10 % visually. Diffuse global hypokinesis. Right Ventricle: The right ventricle appears normal in size. Right ventricular systolic function appears preserved. Left Atrium: The left atrium appears enlarged. Left Atrium Appendage: Normal left atrial appendage, no thrombus seen. Overall Conclusions: Biphasic cardioversion was performed at 360 J, the patient was converted to sinus rhythm Medications Date Time Name Route Form Dose Units Ordered By Given By Comment 10/17/2023 12:49 PM Midazolam HCL (Versed) Intravenous 5 milligrams 10/17/2023 12:49 PM Fentanyl (Opiates) Intravenous 50 micrograms Measurements Left Ventricle Label Value Normal Value LVEF visual 10 % Valvular Assessment LVOT 0.7 - 1.1 m/sec Aortic Valve 1.0 - 1.7 m/sec Mitral Valve 0.6 - 1.3 m/sec Tricuspid Valve 0.3 - 0.7 m/sec Pulmonic Valve 0.6 - 0.9 m/sec Regurgitation Mild MildMod Mild Trivial Findings Left Ventricle: Global left ventricular systolic function is severely reduced. The EF is 10 % visually. Diffuse global hypokinesis. Right Ventricle: The right ventricle appears normal in size. Right ventricular systolic function appears preserved. Left Atrium: The left atrium appears enlarged. Left Atrium Appendage: Normal left atrial appendage, no thrombus seen. IAS: There is an atrial septal defect. No intracardiac shunt by agitated saline injections. Right Atrium: The right atrium appears enlarged. Mitral Valve: The mitral valve is normal in mobility and thickness. Vena contracta 4.0 cm. Mild to moderate mitral regurgitation. Aortic Valve: Mildly sclerosed aortic valve cusps. Mild aortic valve regurgitation. The aortic valve is trileaflet. Tricuspid Valve: Normal tricuspid valve. Mild tricuspid regurgitation. Pulmonic Kajal (more content not included)...[facility]12-09-2023 NoteHospital Medicine Discharge Summary Final Discharge Diagnosis: Atrial Flutter with variable AV conduction Heart failure reduced ejection fraction, TTE performed at outside hospital revealed ejection fraction of 20 to 25%. NYHA Class II Urinary tract infection, urine culture positive for E. Coli. Hypomagnesemia Admission Diagnosis: Atrial fibrillation, unspecified type (CMS/HCC) [I48.91] Hospital course: Alejandro Maradiaga is a 68 y.o. male presented emergency department as a transfer from [facility] for uncontrolled atrial flutter. Patient eventually presented to [facility] on 10/13/2020 treated with chief complaint of nausea vomiting flank pain. UA was consistent with urinary tract infection and patient was placed on Rocephin. Patient presented to outside hospital with HR in the 130s at that time and was found to have atrial flutter on EKG. Urine culture reportedly revealed E. coli and blood cultures remain negative. Patient remained in atrial flutter despite multiple doses of digoxin, patient was transferred for possible cardioversion by cardiology here at [facility]. Echocardiogram revealed atrial flutter with right bundle branch block and left axis deviation with a rate of 111 bpm. Ejection fraction of 20 to 25% Patient underwent on 10/17/23: TESS CV and Lt/Rt HC showed: normal RHC and mild CAD Patient converted to SR and started on GDMT regimen. He also completed UTI treatment with Rocephin on 10/17/23. Being discharged today and to F/U with Cardiology in [address] Kiara MD, Alejandro is advised to follow up with you within 1-2 weeks. Follow-up with: Cardiology Scheduled appointments: Future Appointments Date Time Provider Department Center 10/22/2023 9:00 AM Lalit Egan NP [facility] Your medication list START taking these medications Instructions Last Dose Given Next Dose Due apixaban 5 mg tablet Commonly known as: Eliquis Take 1 tablet (5 mg) by mouth in the morning and at bedtime. aspirin 81 mg EC tablet Start taking on: October 19, 2023 Take 1 tablet (81 mg) by mouth in the morning. Do not start before October 19, 2023. dapagliflozin propanediol 10 mg Commonly known as: Farxiga Start taking on: October 19, 2023 Take 1 tablet (10 mg) by mouth in the morning. Do not start before October 19, 2023. metoprolol succinate XL 25 mg 24 hr tablet Commonly known as: Toprol-XL Start taking on: October 19, 2023 Take 1 tablet (25 mg) by mouth in the morning. Do not crush or chew. Do not start before October 19, 2023. spironolactone 25 mg tablet Commonly known as: Aldactone Start taking on: October 19, 2023 Take 1 tablet (25 mg) by mouth in the morning. Do not start before October 19, 2023. CONTINUE taking these medications Instructions Last Dose Given Next Dose Due albuterol 90 mcg/actuation inhaler atorvastatin 10 mg tablet Commonly known as: Lipitor sxzjkpkcibw-ayiuwckhc-llqietdq 200-62.5-25 mcg blister with device Commonly known as: Trelegy Ellipta ipratropium-albuteroL 0.5-2.5 mg/3 mL nebulizer solution Commonly known as: Duo-Neb montelukast 10 mg tablet Commonly known as: Singulair Where to Get Your Medications These medications were sent to [facility]/pharmacy #[id number] [place] [address] apixaban 5 mg tablet aspirin 81 mg EC tablet dapagliflozin propanediol 10 mg metoprolol succinate XL 25 mg 24 hr tablet spironolactone 25 mg tablet Edward is allergic to adenosine and latex. Disposition: Home or Self Care Discharge Condition: Stable Code Status: Full Code Diagnostic Results Hematology: Results from last 7 days Lab Units 10/18/23 0540 10/17/23 0510 10/16/2342510/15/23 1937 WBC AUTO 10*3/uL 7.34 7.46 < > 7.10 HEMOGLOBIN g/dL 15.5 15.6 < > 15.3 HEMATOCRIT % 45.5 45.7 < > 44.8 MCV fL 97.2 96.8 < > 98.2* PLATELETS AUTO 10*3/uL 318 300 < > 279 INR -- -- -- 1.28* < > = values in this interval not displayed. Chemistry: Results from last 7 days Lab Units 10/17/23 0510 10/16/23 04210/15/231936 SODIUM mmol/L 136 -- 135* POTASSIUM mmol/L 3.6 -- 3.5 CHLORIDE mmol/L 104 -- 103 CO2 mmol/L 24 -- 24 BUN mg/dL 5* -- 9 CREATININE mg/dL 0.64* -- 0.63* GLUCOSE mg/dL 109* -- 105* MAGNESIUM mg/dL 2.0 1.9 1.6* CALCIUM mg/dL 9.2 -- 9.2 Results from last 7 days Lab Units 10/15/23 1937 AST U/L 20 ALT U/L 12 ALK PHOS U/L 73 BILIRUBIN TOTAL mg/dL 1.0 BILIRUBIN DIRECT mg/dL 0.3* Test Results Pending At Discharge: Diet at the time of discharge: regular diet and cardiac diet Activity: Normal activity as tolerated Objective Blood pressure 113/88, pulse 86, temperature 36.2 ???C (97.1 ???F), temperature source Temporal, resp. rate 18, height 1.803 m (5' 11 ), weight 66.1 kg (145 lb 11.6 oz), SpO2 97 %. General: Alert and oriented x3. Cardiology: Normal rate, r (more content not included)...[facility]12-09-2023 NoteHospital Medicine Daily Progress Note - 10/18/2023 11:47 AM; Room: [address] [place] [address] Admission: 10/15/2023 5:13 PM; Length of stay: 3 days THE HOSPITALIST TEAM PREFERS TO USE [employer] FOR COMMUNICATION 7AM-7PM. IF I DO NOT RESPOND WITHIN 15 MINUTES, PLEASE PAGE ME/CALL THROUGH THE TELEGRAPH SERVICE CLERK. FROM 7PM-7AM, PLEASE PAGE [phone](COVR) Code Status: Full Code Barriers to Discharge: Cardiac workup Expected Discharge Date: 10/18 Discharge Destination: home Overview Patient is seen for evaluation and management of A. Flutter and UTI. Subjective Seen today in his room, alert and in no acute distress. Physical Exam Constitutional: Appearance: Normal appearance. HENT: Head: Normocephalic. Eyes: Conjunctiva/sclera: Conjunctivae normal. Cardiovascular: Rate and Rhythm: Regularly, irregular Heart sounds: Normal heart sounds. No murmur heard. Pulmonary: Effort: Pulmonary effort is normal. Abdominal: General: Abdomen is flat. Palpations: Abdomen is soft. Tenderness: There is no abdominal tenderness. There is no guarding or rebound. Musculoskeletal: Normal ROM Skin: Findings: No rash. Neurological: General: No focal deficit present. Mental Status: He is alert and oriented to person, place, and time. Psychiatric: Mood and Affect: Mood normal. Behavior: Behavior normal. Thought Content: Thought content normal. Judgment: Judgment normal. Visit Vitals BP 127/75 (BP Location: Left arm, Patient Position: Lying) Pulse 78 Temp 36.2 ???C (97.1 ???F) (Temporal) Resp 12 Intake/Output Summary (Last 24 hours) at 10/18/2023 1147 Last data filed at 10/18/2023 0600 Gross per 24 hour Intake 1038.33 ml Output 955 ml Net 83.33 ml Estimated body mass index is 20.32 kg/m??? as calculated from the following: Height as of this encounter: 1.803 m (5' 11 ). Weight as of this encounter: 66.1 kg (145 lb 11.6 oz). Active Inpatient Problems Principal Problem: Atrial fibrillation, unspecified type ([facility]) Active Problems: Acute pyelonephritis Systolic CHF ([facility]) COPD (chronic obstructive pulmonary disease) ([facility]) Assessment and Plan A flutter Acute pyelonephritis, prior to arrival Systolic CHF, EF 20 to 25%, new onset Alcohol use COPD Hyperlipidemia Continue telemetry Continue Digoxin for now for rate control Heparin drip stopped and currently on Eliquis LHC and DCCV done on 10/17/: normal RHC and mild CAD. The EF is 10 % visually. Diffuse global hypokinesis. Biphasic cardioversion was performed at 360 J, the patient was converted to sinus rhythm Rocephin completed on 10/17 CIWA protocol VTE Prophylaxis: Eliquis Scheduled Meds albuterol, 1 puff, inhalation, Daily apixaban, 5 mg, oral, BID aspirin, 81 mg, oral, Daily atorvastatin, 40 mg, oral, Nightly dapagliflozin propanediol, 10 mg, oral, Daily digoxin, 125 mcg, oral, Daily famotidine, 20 mg, oral, BID groytumqxob-zshypdsis-vvwvvagf, 1 puff, inhalation, Daily ipratropium-albuteroL, 3 mL, nebulization, BID metoprolol succinate XL, 25 mg, oral, Daily montelukast, 10 mg, oral, Nightly nicotine, 1 patch, transdermal, Daily after evening meal spironolactone, 25 mg, oral, Daily Pertinent Investigations Hematology: Results from last 7 days Lab Units 10/18/23 0540 10/17/23 0510 12/07/42510/15/231936 WBC AUTO 10*3/uL 7.34 7.46 < > 7.10 HEMOGLOBIN g/dL 15.5 15.6 < > 15.3 HEMATOCRIT % 45.5 45.7 < > 44.8 MCV fL 97.2 96.8 < > 98.2* PLATELETS AUTO 10*3/uL 318 300 < > 279 INR -- -- -- 1.28* < > = values in this interval not displayed. Chemistry: Results from last 7 days Lab Units 10/17/23 0510 10/16/236 10/15/231936 SODIUM mmol/L 136 -- 135* POTASSIUM mmol/L 3.6 -- 3.5 CHLORIDE mmol/L 104 -- 103 CO2 mmol/L 24 -- 24 BUN mg/dL 5* -- 9 CREATININE mg/dL 0.64* -- 0.63* GLUCOSE mg/dL 109* -- 105* MAGNESIUM mg/dL 2.0 1.9 1.6* CALCIUM mg/dL 9.2 -- 9.2 Results from last 7 days Lab Units 10/15/231936 AST U/L 20 ALT U/L 12 ALK PHOS U/L 73 BILIRUBIN TOTAL mg/dL 1.0 BILIRUBIN DIRECT mg/dL 0.3* Historical Values: (Includes values prior to this admission) Lab Results Component Value Date TSH 3.20 10/15/2023 HDL 20 (L) 10/16/2023 LDL 84 10/16/2023 No results found for: [id number] , IRON , TIBC , C3 , C4 , WENCESLAO , CANCA , ASO , PSA , CEA , CA125 , CA199 , AFP , CA153 Imaging Transesophageal Echo (TESS) 1 1 [facility] Heart Station [address] [place] [address] [phone] (fax) Echocardiogram-[facility] Name: ALEJANDRO MARADIAGA Study Date: 10/17/2023 12:13 PM B/P: 125 mmHg/93 mmHg HR: 144 bpm Date of : 1955 Location: [facility] Height: 71 in. Age: 68 year(s) Patient Room: 3129 Weight: 157 lb. Gender: Male Patient Status: InPt BSA: 1.9 m2 Indication: Atrial Fibrillation, Pre-cardioversion Examination: TESS (Transesophageal Echo / CFI), Agitated S (more content not included)...[facility] 10-17-2023 NotePt going into dental laboratory worker suite for procedure.[facility]12-08-2023 NoteHospital Medicine Daily Progress Note - 10/17/2023 1:20 PM; Room: [address] [place] [address] Admission: 10/15/2023 5:13 PM; Length of stay: 2 days THE HOSPITALIST TEAM PREFERS TO USE [employer] FOR COMMUNICATION 7AM-7PM. IF I DO NOT RESPOND WITHIN 15 MINUTES, PLEASE PAGE ME/CALL THROUGH THE TELEGRAPH SERVICE CLERK. FROM 7PM-7AM, PLEASE PAGE [phone](COVR) Code Status: Full Code Barriers to Discharge: Cardiac workup Expected Discharge Date: 10/18 Discharge Destination: home Overview Patient is seen for evaluation and management of A. Flutter and UTI. Subjective Seen today in his room, alert and in no acute distress. HR still not well controlled Physical Exam Constitutional: Appearance: Normal appearance. HENT: Head: Normocephalic. Eyes: Conjunctiva/sclera: Conjunctivae normal. Cardiovascular: Rate and Rhythm: Rhythm irregular. Heart sounds: Normal heart sounds. No murmur heard. Pulmonary: Effort: Pulmonary effort is normal. Abdominal: General: Abdomen is flat. Palpations: Abdomen is soft. Tenderness: There is no abdominal tenderness. There is no guarding or rebound. Musculoskeletal: Normal ROM Skin: Findings: No rash. Neurological: General: No focal deficit present. Mental Status: He is alert and oriented to person, place, and time. Psychiatric: Mood and Affect: Mood normal. Behavior: Behavior normal. Thought Content: Thought content normal. Judgment: Judgment normal. Visit Vitals BP 104/71 Pulse 80 Temp 36.3 ???C (97.3 ???F) (Temporal) Resp 14 Intake/Output Summary (Last 24 hours) at 10/17/2023 1320 Last data filed at 10/17/2023 1229 Gross per 24 hour Intake 1758.17 ml Output 3100 ml Net -1341.83 ml Estimated body mass index is 21.98 kg/m??? as calculated from the following: Height as of this encounter: 1.803 m (5' 11 ). Weight as of this encounter: 71.5 kg (157 lb 10.1 oz). Active Inpatient Problems Principal Problem: Atrial fibrillation, unspecified type ([facility]) Active Problems: Acute pyelonephritis Systolic CHF ([facility]) COPD (chronic obstructive pulmonary disease) ([facility]) Assessment and Plan A flutter Acute pyelonephritis, prior to arrival Systolic CHF, EF 20 to 25%, new onset Alcohol use COPD Hyperlipidemia Continue telemetry Continue Digoxin for now for rate control Heparin drip and hold Eliquis [facility] Continue Rocephin until today [facility] protocol VTE Prophylaxis: IV heparin Scheduled Meds albuterol, 1 puff, inhalation, Daily aspirin, 81 mg, oral, Daily atorvastatin, 80 mg, oral, Nightly cefTRIAXone, 2 g, intravenous, q24h digoxin, 500 mcg, intravenous, Once Followed by digoxin, 100 mcg, intravenous, q6h famotidine, 20 mg, oral, BID jlnibwwdgkt-sirrfvjqs-wfagosfj, 1 Inhalation, inhalation, Daily furosemide, 40 mg, intravenous, q12h ipratropium-albuteroL, 3 mL, nebulization, BID metoprolol succinate XL, 25 mg, oral, Daily montelukast, 10 mg, oral, Nightly nicotine, 1 patch, transdermal, Daily after evening meal potassium chloride, 20 mEq, oral, Once spironolactone, 25 mg, oral, Daily heparin, 0-28 Units/kg/hr, Last Rate: 18 Units/kg/hr (10/17/23 0825) sodium chloride, 100 mL/hr, Last Rate: 100 mL/hr (10/17/23 0834) Pertinent Investigations Hematology: Results from last 7 days Lab Units 10/17/23 0510 10/16/23 04210/15/237 WBC AUTO 10*3/uL 7.46 7.42 7.10 HEMOGLOBIN g/dL 15.6 13.7 15.3 HEMATOCRIT % 45.7 40.6 44.8 MCV fL 96.8 99.5* 98.2* PLATELETS AUTO 10*3/uL 300 274 279 INR -- -- 1.28* Chemistry: Results from last 7 days Lab Units 10/17/23 0510 10/16/23 04210/15/237 SODIUM mmol/L 136 -- 135* POTASSIUM mmol/L 3.6 -- 3.5 CHLORIDE mmol/L 104 -- 103 CO2 mmol/L 24 -- 24 BUN mg/dL 5* -- 9 CREATININE mg/dL 0.64* -- 0.63* GLUCOSE mg/dL 109* -- 105* MAGNESIUM mg/dL 2.0 1.9 1.6* CALCIUM mg/dL 9.2 -- 9.2 Results from last 7 days Lab Units 10/15/231936 AST U/L 20 ALT U/L 12 ALK PHOS U/L 73 BILIRUBIN TOTAL mg/dL 1.0 BILIRUBIN DIRECT mg/dL 0.3* Historical Values: (Includes values prior to this admission) Lab Results Component Value Date TSH 3.20 10/15/2023 HDL 20 (L) 10/16/2023 LDL 84 10/16/2023 No results found for: [id number] , IRON , TIBC , C3 , C4 , WENCESLAO , CANCA , ASO , PSA , CEA , CA125 , CA199 , AFP , CA153 Imaging ECG 12 lead Sinus rhythm with 1st degree A-V block Left axis deviation Right bundle branch block Inferior infarct (cited on or before 15-OCT-2023) Anteroseptal infarct (cited on or before 15-OCT-2023) T wave abnormality, consider lateral ischemia Abnormal ECG When compared with ECG of 17-OCT-2023 09:09, (unconfirmed) Significant changes have occurred ECG 12 lead Atrial flutter with 2:1 A-V conduction Left axis deviation Right bundle branch block Inferior infarct (cited on or before 15-OCT-2023) Anteroseptal infarct (cited on or before 15-OCT-2023) Abnormal ECG W (more content not included)...[facility]12-08-2023 Note Attestation signed by Eugene Gutierrez MD at 12/11/2023 8:44 PM I personally saw and examined the patient on the same date of service as the resident. I discussed the findings and therapeutic plan with the resident/fellow. Plan of care was discussed with patient, and patient is agreeable with plan. I agree with the documentation, except for any edits/updates below. Teaching Physician's Revisions: none Eugene Gutierrez MD MD Cardiology Cardiology Progress Note Subjective Subjective: Alejandro Maradiaga is a 68 y.o. male seen and examined at bedside this morning. No acute events overnight. Continues to be in atrial flutter on telemetry. Patient is NPO at this time, plan for TESS with cardioversion today and LHC/RHC today. Patient continues to endorse chest pain at this time. Objective Objective: Patient Vitals for the past 24 hrs: BP Temp Temp src Pulse Resp SpO2 Weight 10/17/23 0405 118/68 36.7 ???C (98 ???F) -- 95 18 93 % 71.5 kg (157 lb 10.1 oz) 10/17/23 0000 116/53 -- -- 91 20 93 % -- 10/16/23 2350 -- -- -- 91 20 94 % -- 10/16/23 2322 120/85 -- -- (!) 138 17 95 % -- 10/16/238 -- -- -- 96 19 -- -- 10/16/232009 130/64 36.6 ???C (97.9 ???F) -- 97 18 95 % -- 10/16/23 1603 144/79 36.2 ???C (97.2 ???F) Temporal 107 18 98 % -- 10/16/23 1150 155/76 36.6 ???C (97.9 ???F) Temporal 99 14 96 % -- 10/16/23 0750 117/62 36.6 ???C (97.8 ???F) Temporal 109 16 94 % -- Physical Examination: Physical Exam Constitutional: Appearance: Normal appearance. He is normal weight. HENT: Head: Normocephalic and atraumatic. Mouth/Throat: Mouth: Mucous membranes are moist. Pharynx: Oropharynx is clear. Eyes: Extraocular Movements: Extraocular movements intact. Pupils: Pupils are equal, round, and reactive to light. Cardiovascular: Rate and Rhythm: Rhythm irregular. Pulses: Normal pulses. Heart sounds: Normal heart sounds. Pulmonary: Effort: Pulmonary effort is normal. Breath sounds: Normal breath sounds. Abdominal: General: Abdomen is flat. Palpations: Abdomen is soft. Musculoskeletal: General: Normal range of motion. Cervical back: Normal range of motion and neck supple. Right lower leg: No edema. Left lower leg: No edema. Skin: General: Skin is warm and dry. Neurological: General: No focal deficit present. Mental Status: He is alert and oriented to person, place, and time. Psychiatric: Mood and Affect: Mood normal. Behavior: Behavior normal. Relevant Lab Results Encounter Date: 10/15/23 ECG 12 lead Result Value Ventricular Rate 105 Atrial Rate 278 QRS DURATION 136 QT Interval 352 QTC CALCULATION(BAZETT) 465 R-Ripley -74 T Wave Ripley 62 Impression Atrial flutter with variable A-V block Left axis deviation Right bundle branch block Septal infarct , age undetermined Inferior infarct , age undetermined Abnormal ECG When compared with ECG of 16-OCT-2023 14:52, Significant changes have occurred Confirmed by Abel Castaneda ([id number]) on 10/17/2023 12:52:58 AM Lab Results Component Value Date TROPONINI 0.03 10/17/2023 Transthoracic echo (TTE) complete Result Date: 10/16/2023 1 1 [facility] Heart Station [address] [place] [address] [phone] (fax) Echocardiogram-[facility] Name: ALEJANDRO MARADIAGA Study Date: 10/16/2023 02:42 PM B/P: 155 mmHg/76 mmHg HR: 109 bpm Date of : 1955 Location: [facility] Height: 71 in. Age: 68 year(s) Patient Room: 3129 Weight: 169 lb. Gender: Male Patient Status: InPt BSA: 1.96 m2 Indication: Atrial Flutter Examination: Echocardiogram (Complete), Lumason Contrast Image Quality: Fair Patient Consent: Procedure explained to patient Exam Details Contrast: I.V. dose of Lumason Conclusions Left Ventricle: The left ventricle is normal size. Global left ventricular systolic function is severely reduced. EF range is estimated at 10 % -15 %. Left ventricular wall thickness is normal. Right Ventricle: The right ventricle is enlarged. Right ventricular systolic function appears reduced. Doppler studies suggest severely elevated right sided pressures. Left Atrium: The left atrium appears enlarged. Mitral Valve: Mild mitral regurgitation. Tricuspid Valve: Moderate to severe tricuspid regurgitation. Overall Conclusions: Due to suboptimal imaging Lumason contrast was administered for opacification and better delineation of endocardial borders. Measurements Left Ventricle Label Value Normal Value LVOT VTI 19.8 cm (18cm - 22cm) LVOT PGmax 8 mmHg LVDd, 2D 5.13 cm (4.2cm - 5.9cm) IVSd, 2D 0.56 cm (0.6cm - 1.1cm) LVPWd, 2D 0.73 cm (0.6cm - 1cm) LV Mass, 2D ASE 108.43 g LV Mass Index, 2D ASE 55.3 g/m?? (50g/m?? - 102.4g/m??) RWT, MM 0.28 (0 - 0.42) LVOT PGmean 4 mmHg Right Ventricle (more content not included)...[facility]12-07-2023 Note Hospital Medicine Daily Progress Note - 10/16/2023 12:51 PM; Room: [address] [place] [address] Admission: 10/15/2023 5:13 PM; Length of stay: 1 days THE HOSPITALIST TEAM PREFERS TO USE [employer] FOR COMMUNICATION 7AM-7PM. IF I DO NOT RESPOND WITHIN 15 MINUTES, PLEASE PAGE ME/CALL THROUGH THE TELEGRAPH SERVICE CLERK. FROM 7PM-7AM, PLEASE PAGE [phone](COVR) Code Status: Full Code Barriers to Discharge: Cardiac workup Expected Discharge Date: 10/18 Discharge Destination: home Overview Patient is seen for evaluation and management of A. Flutter and UTI. Subjective Seen today in his room, alert and in no acute distress. Physical Exam Constitutional: Appearance: Normal appearance. HENT: Head: Normocephalic. Eyes: Conjunctiva/sclera: Conjunctivae normal. Cardiovascular: Rate and Rhythm: Rhythm irregular. Heart sounds: Normal heart sounds. No murmur heard. Pulmonary: Effort: Pulmonary effort is normal. Abdominal: General: Abdomen is flat. Palpations: Abdomen is soft. Tenderness: There is no abdominal tenderness. There is no guarding or rebound. Musculoskeletal: Normal ROM Skin: Findings: No rash. Neurological: General: No focal deficit present. Mental Status: He is alert and oriented to person, place, and time. Psychiatric: Mood and Affect: Mood normal. Behavior: Behavior normal. Thought Content: Thought content normal. Judgment: Judgment normal. Visit Vitals BP 155/76 (BP Location: Left arm) Pulse 99 Temp 36.6 ???C (97.9 ???F) (Temporal) Resp 14 Intake/Output Summary (Last 24 hours) at 10/16/2023 1251 Last data filed at 10/16/2023 1000 Gross per 24 hour Intake 1100 ml Output 1400 ml Net -300 ml Estimated body mass index is 23.63 kg/m??? as calculated from the following: Height as of this encounter: 1.803 m (5' 11 ). Weight as of this encounter: 76.8 kg (169 lb 6.4 oz). Active Inpatient Problems Principal Problem: Atrial fibrillation, unspecified type ([facility]) Active Problems: Acute pyelonephritis Systolic CHF ([facility]) COPD (chronic obstructive pulmonary disease) ([facility]) Assessment and Plan A flutter Acute pyelonephritis, prior to arrival Systolic CHF, EF 20 to 25%, new onset Alcohol use COPD Hyperlipidemia Continue telemetry Continue Digoxin for now for rate control Heparin drip and hold Eliquis Possible DCCV Continue Rocephin until tomorrow [facility] protocol VTE Prophylaxis: IV heparin Scheduled Meds cefTRIAXone, 2 g, intravenous, q24h digoxin, 100 mcg, intravenous, Daily famotidine, 20 mg, oral, BID heparin, 0-28 Units/kg/hr, Last Rate: 19 Units/kg/hr (10/16/23 1300) Pertinent Investigations Hematology: Results from last 7 days Lab Units 10/16/23 0426 10/15/23 1937 WBC AUTO 10*3/uL 7.42 7.10 HEMOGLOBIN g/dL 13.7 15.3 HEMATOCRIT % 40.6 44.8 MCV fL 99.5* 98.2* PLATELETS AUTO 10*3/uL 274 279 INR -- 1.28* Chemistry: Results from last 7 days Lab Units 10/16/23 0426 10/15/23 1937 SODIUM mmol/L -- 135* POTASSIUM mmol/L -- 3.5 CHLORIDE mmol/L -- 103 CO2 mmol/L -- 24 BUN mg/dL -- 9 CREATININE mg/dL -- 0.63* GLUCOSE mg/dL -- 105* MAGNESIUM mg/dL 1.9 1.6* CALCIUM mg/dL -- 9.2 Results from last 7 days Lab Units 10/15/23 1937 AST U/L 20 ALT U/L 12 ALK PHOS U/L 73 BILIRUBIN TOTAL mg/dL 1.0 BILIRUBIN DIRECT mg/dL 0.3* Historical Values: (Includes values prior to this admission) Lab Results Component Value Date TSH 3.20 10/15/2023 No results found for: [id number] , IRON , TIBC , C3 , C4 , WENCESLAO , CANCA , ASO , PSA , CEA , CA125 , CA199 , AFP , CA153 Imaging Electrocardiogram, 12-lead Atrial flutter with variable A-V block Left axis deviation Right bundle branch block Septal infarct , age undetermined Inferior infarct , age undetermined Abnormal ECG No previous ECGs available Confirmed by Favio REYES, ALEX Ventura ([id number]) on 10/16/2023 9:04:16 AM Discharge Planning Discharge Planning Living Arrangements: Spouse/significant other Support Systems: Spouse/significant other Type of Residence/Post Acute Needs: Private residence Patient's goal for discharge: Plan is to discharge home with Does the patient need discharge transport arranged?: No (spouse) Signed Jose Reed MD Hospital Medicine 10/16/2023 12[facility] 1147 Admission Assessment Questions Verify insurance with patient Yes Do you understand medical disease or what brought you into the hospital? Yes Who is your current PCP? Shanell Craig Can I schedule a follow up appointment for you at the time of discharge? Yes Do you understand why you are taking your current medications? Yes Are you taking your medications as prescribed? Yes Did patient provide teach back? Yes Would you like use our pharmacy [facility] to fill your new medications at the time of Discharge? Yes Does the patient have a case checker assigned to them through their insurance? No Living Arrangement (Current/Prior to Hospitalization) Private residence Does the patient have history of HHC or SNF? No Assistive Device Not applicable Patient's goal for discharge Plan is to discharge home with Was patient reminded that goal for discharge is 11am? Yes Does the patient have transportation at discharge? Yes Type of Residence/Post Acute Needs Private residence Is PT/OT appropriate? No Is PT/OT ordered? No Is SW consult appropriate? No Is SW consult ordered? No Do you understand the benefits of MyChart? Yes Were you able to send link and activate MyChart? MyChart already active 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 Patient Information Primary Caregiver Self Accompanied by/Relationship spouse Activities of Daily Living Assistive Device (Pt stating no DME ordered for use in home, no DME in place in the home) Living Arrangement (Current/Prior to Hospitalization) Private residence Ambulation Independent (Patient reporting) Dressing Independent (Patient reporting) Feeding Independent (Patient reporting) Behavior Oriented Communication Talks;Understands speaking Discharge Planning Support Systems Spouse/significant other Type of Residence/Post Acute Needs Private residence Patient's goal for discharge home Does the patient need discharge transport arranged? No (spouse) Pt stating smokes about 8 cigarettes daily, stating is about half a pack. Pt denies drinking alcohol Pt denies missing any medications due to finances Pt denies missing any medical appts due to transportation.[facility] NoteHospital Medicine History and Physical 10/15/2023 8:05 PM THE HOSPITALIST TEAM PREFERS TO USE [employer] FOR COMMUNICATION 7AM-7PM. IF I DO NOT RESPOND WITHIN 15 MINUTES, PLEASE PAGE ME/CALL THROUGH THE TELEGRAPH SERVICE CLERK. FROM 7PM-7AM, PLEASE PAGE [phone](COVR) Chief Complaint No chief complaint on file. History of Present Illness Alejandro Maradiaga is an 68 y.o. male who came from home with past medical history of COPD, current smoker, hyperlipidemia and almost daily alcohol use presented to ER as a transfer from [facility] for uncontrolled A-flutter. Patient presented to the hospital on 10/13/2023 with nausea, vomiting and flank pain. His urinalysis was consistent with UTI. His imaging showed some stranding around the left kidney. Patient was admitted for acute pyelonephritis and started on Rocephin. His urine culture per report is back positive for E. coli. Blood cultures are negative. Patient's heart rate was consistently in 130s during hospitalization. He was found to be in a flutter. No history of cardiac diseases. He also had echo done yesterday which showed EF of 20 to 25%. He denies having any chest pain. He was not a candidate for Cardizem because of low EF. He was given multiple doses of digoxin but his heart rate was still elevated and he was in a flutter. Cardiology was consulted and they recommended for the patient to be transferred here for cardioversion. Patient's only complaint today is some shortness of breath that he relates to his COPD. He denies any dysuria or frequency. No abdominal pain. No chest pain. No fevers or chills. 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 Review of System and Physical Exam Temp: [36.5 ???C (97.7 ???F)] 36.5 ???C (97.7 ???F) Heart Rate: [108-114] 108 Resp: [16-29] 16 BP: (142)/(62) 142/62 Physical Exam Constitutional: Appearance: Normal appearance. HENT: Head: Normocephalic. Eyes: Conjunctiva/sclera: Conjunctivae normal. Cardiovascular: Rate and Rhythm: Tachycardia present. Rhythm irregular. Heart sounds: Normal heart sounds. No murmur heard. Pulmonary: Effort: Pulmonary effort is normal. No respiratory distress. Breath sounds: No wheezing, rhonchi or rales. Comments: Diminished breath sounds bilaterally. Abdominal: General: Abdomen is flat. Palpations: Abdomen is soft. Tenderness: There is no abdominal tenderness. There is no guarding or rebound. Musculoskeletal: General: No swelling. Right lower leg: Edema (trace) present. Left lower leg: Edema (trace) present. Skin: Findings: No rash. Neurological: General: No focal deficit present. Mental Status: He is alert and oriented to person, place, and time. Psychiatric: Mood and Affect: Mood normal. Behavior: Behavior normal. Thought Content: Thought content normal. Judgment: Judgment normal. Review of Systems mentioned in HPI Problem List Patient Active Problem List Diagnosis Date Noted Atrial fibrillation, unspecified type ([facility]) 10/15/2023 Acute pyelonephritis 10/15/2023 Systolic CHF ([facility]) 10/15/2023 COPD (chronic obstructive pulmonary disease) ([facility]) 10/15/2023 Assessment and Plan A flutter Acute pyelonephritis Systolic CHF, EF 20 to 25%, new onset Alcohol use COPD Smoker Hyperlipidemia Plan: Patient is admitted to stepdown telemetry bed. Fall precautions. Upon arrival, his heart rate was in 130s so he received 100 mcg of IV digoxin. He will be on telemetry and we will monitor him. If needed, will give additional doses of digoxin. Patient will be kept n.p.o. after midnight for cardioversion tomorrow. Cardiology consult. Patient was given Eliquis at the previous hospital. We will switch him to heparin drip. Rocephin 2 g IV daily for UTI CIWA protocol Labs, EKG are ordered. Pepcid 20 mg p.o. for GI prophylaxis EPC cuffs VTE Prophylaxis: IV heparin ----- Focus of this inpatient stay will remain on problems that need acute care setting for care. We will review available studies and will order additional labs, imaging and other studies as appropriate. As needed medicines are ordered as appropriate. VTE Prophylaxis will be ordered as appropriate. Please see above for management plan for individual hospital problems. Home medications are reviewed and will be continued as appropriate. Patient will be continued to be followed during this hospital stay by a member of [facility]. Past Medical History History reviewed. No pertinent past medical history. Past Surgical History History reviewed. No pertinent surgical history. Social History Social History Socioeconomic History Marital status: Not on file Spouse name: Not on file Number of children: Not on file Years of education: Not on file Highest education level: Not on file Occupational History Not on file Tobacco Use Smoking status: Every Day Packs/day: 0.50 Years: 15.00 Additional pack years: 0.00 Total pack years: 7.50 (more content not included)...[facility]* Encounter Date Diagnosis Assessment Notes Treatment Notes Treatment Clinical Notes Aug, Severe chronic obstructive pulmonary disease (ICD-10 - J44.9) Referral to pulmonary rehab Aug, Tobacco use disorder (ICD-10 - F17.200) [employer] Other 10-16-2023 Evaluation note* Encounter Date Diagnosis Assessment Notes Treatment Notes Treatment Clinical Notes Aug, Chronic bronchitis, unspecified chronic bronchitis type (ICD-10 - J42) [facility] Other 08-29-2023 Evaluation note* Encounter Date Diagnosis Assessment Notes Treatment Notes Treatment Clinical Notes Jun, Chronic bronchitis, unspecified chronic bronchitis type (ICD-10 - J42) [facility] Other 08-11-2023 Evaluation note* Encounter Date Diagnosis Assessment Notes Treatment Notes Treatment Clinical Notes Jun, Cervical pain (neck) (ICD-10 - M54.2) Offered referral to pain management, CT or MRI or even Neurosurgery consult. Pt prefers to repeat the steroid course and will call this fall if those options are needed. Jun, Acute bacterial conjunctivitis, unspecified laterality (ICD-10 - H10.30) Pt states he likes to keep an rx on hand. [facility] Other 05-01-2023 History general Narrative - Reported* Type Description Date Medical History COPD Medical History Seasonal allergies Medical History Hyperlipidemia Surgical History Cataract surgery, both 03/2023 Surgical History Sinus surgery 2019 Surgical History C7 surgery and foramenostomy 93 [facility] Other 05-01-2023 History general Narrative - Reported* Type Description Date Medical History Seasonal allergies Medical History Hyperlipidemia Surgical History Cataract surgery, both 03/2023 Surgical History Sinus surgery 2019 Surgical History C7 surgery and foramenostomy 19 93 Hospitalization History rt fibula fx 2017 [facility] Other 05-01-2023 History general Narrative - Reported* Type Description Date Medical History Seasonal allergies Medical History Hyperlipidemia Medical History Afib Surgical History Cataract surgery, both 03/2023 Surgical History Sinus surgery 2019 Surgical History C7 surgery and foramenostomy 19 93 Hospitalization History rt fibula fx 2017 [facility] Other 01-16-2023 History of Present illness Narrative* Jenni Huang, PT - 11/25/2022 12:15 PM EST [facility] [place] 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 Spondylosis without myelopathy or radiculopathy, cervical region M47.812 721.0 2. Neck pain M54.2 723.1 3. Cervicalgia M54.2 723.1 4. Chronic left shoulder pain M25.512 719.41 G89.29 338.29 5. Left shoulder pain, unspecified chronicity M25.512 719.41 Evaluation Assessment: Alejandro Maradiaga is a 67 y.o. who presents to physical therapy with complaints of neck pain for > 2 months with tightness in muscles. Upon evaluation Alejandro Maradiaga demonstrates decreased neck ROM, UE weakness, poor posture, muscle guarding, pain affecting driving & lifting abilities affecting their function. Clinical presentation is stable. Factors expected to impact care include past neck laminectomy, L RTC repair, arthritis, COPD. Alejandro Maradiaga will benefit from skilled physical therapy in order to address the above deficits and functionally improve the Patient's activity tolerance and allow them to return to prior of level of function with reduced symptoms. Time in/Time out Time in: 1226 Time out: 1305 Time Calculation (min): 39 Subjective: Pt reports tightness in his neck with pain 3/10 with some parascapular pain. Overall his neck ROM & pain is improving. He did traction at home & it helped for the rest of the day. Pain In: 3/10 Out: better /10 Objective: Improved posture at rest requiring less cueing. Notable improved cervical SB ROM but still reduced. Significant muscle guarding surrounding neck muscles, B UTs, SCMs, & paraspinals. L>R tightness in sub occipitals & SCM. Today s Treatment: Manual: Manual cervical traction & SOR in supine. Manual STM to suboccipitals, B SCMS to reducespinal compression, pain, & address muscle guarding. x15 min Modalities: 0 Precautions: 0 Therapeutic Exercise: * Indicates issued as part of HEP. Completed Exercise Reps/time Resistance Comments [x] Shld rolls fw/bw* B x10 [x] scap retractions* x10 [x] Cervical retraction* 2x10 seated [x] UT stretch* 10 sec x5 B [x] pulleys 3 min [x] UBE seated L2 3x3 fw/bw [] scap retraction / LA ext 3x10 Lu x W's against wall 5 sec x10 x Cervical flexion stretch 5 sec x10 X's 2x10 BL [] horz abd at 90 / ER 2x10 BL [] Push ups on stair railing 2x10 [] Overhead press / shld flex / abd 3# 2x10 [] Self TPR with theracane to L levator insertion 5 min [] Shld tapping on stairs 2x10 Therapeutic Activity: Completed Exercise Reps/time Resistance Comments [] [] [] [] [] [] Neuromuscular Re-education: Completed Exercise Reps/time Resistance Comments [] [] [] [] [] [] NEXT: recheck Patient Response to treatment: Pt tolerated all exs & manual well & left with reduced neck pain. He then rec manual Cervical traction , SOB & STM to reduce neck pain & muscle tightness. He left with reduced pain levels. Pt needed a few cues for proper ex completion. Assessment: [x] Progressing toward goals. []Goals met. []No change. [] Other: [x]Patient would benefit from skilled physical therapy services in order to reduce symptoms & improve functional mobility & meet below goals. Goals: Short Term Goals - 2 weeks Met Progressing Towards Not Met 1 Patient will demonstrate independence with appropriate issued written HEP. [] [] [] 2 pt will report overall reduced symptoms by > 50%. 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 [] [] [] 2 Patient will demonstrate 4+/5 B shld strength to allow overhead reaching & lifting tasks. 3 Patient will demonstrate proper posture in sitting without verbal cueing. [] [] [] 4 Patient will report ability to drive safely with full cervical Rotation ROM without pain. [] [] [] 5 Patient will demonstrate increased FOTO score to Discharge Score Predicted Value. [] [] [] Pt. Education: [x] Yes [] No [] Assessed Prior HEP/Ed Method of Education: [x]Verbal [x] Demo []Written Pt educated in proper posture & instructed to cont established HEP. Comprehension of Education: [x] Verbalizes understanding. [x] Demonstrates understanding. []Needs review. [] Demonstrates/verbalizes HEP/Ed previously given. Plan: Recheck & foresee DC next visit. 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 [] Goals met, discharge to HEP [] Hold or discharge therapy due to: Jenni Huang PT documented in this encounterEncompass Health Rehabilitation Hospital Of [id number] History of Present illness Narrative* Jenni Huang PT - 11/20/2022 12:00 PM EST [facility] [place] 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 Spondylosis without myelopathy or radiculopathy, cervical region M47.812 721.0 2. Neck pain M54.2 723.1 3. Cervicalgia M54.2 723.1 4. Chronic left shoulder pain M25.512 719.41 G89.29 338.29 5. Left shoulder pain, unspecified chronicity M25.512 719.41 Evaluation Assessment: Alejandro Maradiaga is a 67 y.o. who presents to physical therapy with complaints of neck pain for > 2 months with tightness in muscles. Upon evaluation Alejandro Maradiaga demonstrates decreased neck ROM, UE weakness, poor posture, muscle guarding, pain affecting driving & lifting abilities affecting their function. Clinical presentation is stable. Factors expected to impact care include past neck laminectomy, L RTC repair, arthritis, COPD. Alejandro Maradiaga will benefit from skilled physical therapy in order to address the above deficits and functionally improve the Patient's activity tolerance and allow them to return to prior of level of function with reduced symptoms. Time in/Time out Time in: 1203 Time out: 1249 Time Calculation (min): 46 Subjective: Pt reports tightness in his neck with pain 2-3/10 without any parascapular pain. Overall his neck ROM & pain is improving. Today is last day of Prednisone. Pain In: 2-3/10 Out: better /10 Objective: Improved posture at rest requiring less cueing. Notable improved cervical SB ROM but still reduced. Significant muscle guarding surrounding neck muscles, B UTs, SCMs, & paraspinals. L>R tightness in sub occipitals & SCM. Today s Treatment: Manual: Manual cervical traction & SOR in supine. Manual STM to suboccipitals, B SCMS to reducespinal compression, pain, & address muscle guarding. x15 min Modalities: 0 Precautions: 0 Therapeutic Exercise: * Indicates issued as part of HEP. Completed Exercise Reps/time Resistance Comments [x] Shld rolls fw/bw* B x10 [x] scap retractions* x10 [x] Cervical retraction* 2x10 Back to wall [x] UT stretch* 10 sec x5 B [x] pulleys 3 min [x] UBE seated L2 3x3 fw/bw [x] scap retraction / LA ext 3x10 Lu x X's 2x10 BL [x] horz abd at 90 / ER 2x10 BL [x] Push ups on stair railing 2x10 [] Overhead press / shld flex / abd 3# 2x10 [x] Self TPR with theracane to L levator insertion 5 min [x] Shld tapping on stairs 2x10 Therapeutic Activity: Completed Exercise Reps/time Resistance Comments [] [] [] [] [] [] Neuromuscular Re-education: Completed Exercise Reps/time Resistance Comments [] [] [] [] [] [] NEXT: add prone sandra Patient Response to treatment: Pt tolerated all exs & manual well & left with reduced neck pain. He then rec manual Cervical traction , SOB & STM to reduce neck pain & muscle tightness. He left with reduced pain levels. Pt needed a few cues for proper ex completion. Assessment: [x] Progressing toward goals. []Goals met. []No change. [] Other: [x]Patient would benefit from skilled physical therapy services in order to reduce symptoms & improve functional mobility & meet below goals. Goals: Short Term Goals - 2 weeks Met Progressing Towards Not Met 1 Patient will demonstrate independence with appropriate issued written HEP. [] [] [] 2 pt will report overall reduced symptoms by > 50%. [] [] [] Correction Goals - 4 weeks Met Progressing Towards Not Met 1 Patient will demonstrate full cervical ROM for safe driving. [] [] [] 2 Patient will demonstrate 4+/5 B shld strength to allow overhead reaching & lifting tasks. 3 Patient will demonstrate proper posture in sitting without verbal cueing. [] [] [] 4 Patient will report ability to drive safely with full cervical Rotation ROM without pain. [] [] [] 5 Patient will demonstrate increased FOTO score to Discharge Score Predicted Value. [] [] [] Pt. Education: [x] Yes [] No [] Assessed Prior HEP/Ed Method of Education: [x]Verbal [x] Demo []Written Pt educated in proper posture & instructed to cont established HEP. Comprehension of Education: [x] Verbalizes understanding. [x] Demonstrates understanding. []Needs review. [] Demonstrates/verbalizes HEP/Ed previously given. 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 [] Goals met, discharge to HEP [] Hold or discharge therapy due to: Jenni Huang PT documented in this encounterEncompass Health Rehabilitation Hospital Of [id number] History of Present illness Narrative* Jenni Huang PT - 11/18/2022 9:00 AM EST [facility] [place] 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 Spondylosis without myelopathy or radiculopathy, cervical region M47.812 721.0 2. Neck pain M54.2 723.1 3. Cervicalgia M54.2 723.1 4. Chronic left shoulder pain M25.512 719.41 G89.29 338.29 5. Left shoulder pain, unspecified chronicity M25.512 719.41 Evaluation Assessment: Alejandro Maradiaga is a 67 y.o. who presents to physical therapy with complaints of neck pain for > 2 months with tightness in muscles. Upon evaluation Alejandro Maradiaga demonstrates decreased neck ROM, UE weakness, poor posture, muscle guarding, pain affecting driving & lifting abilities affecting their function. Clinical presentation is stable. Factors expected to impact care include past neck laminectomy, L RTC repair, arthritis, COPD. Alejandro Maradiaga will benefit from skilled physical therapy in order to address the above deficits and functionally improve the Patient's activity tolerance and allow them to return to prior of level of function with reduced symptoms. Time in/Time out Time in: 902 Time out: 947 Time Calculation (min): 45 Subjective: Pt reports tightness in his neck with pain 1-2/10 without any parascapular pain. Overall his neck ROM & pain is improving. When leaving pt states I always feel better Pain In: 1-2/10 Out: I always feel better /10 Objective: Poor posture at rest but able to correct with cueing. Notable improved cervical SB ROM but still reduced. Significant muscle guarding surrounding neck muscles, B UTs, SCMs, & paraspinals. L>R tightness in sub occipitals & SCM. Today s Treatment: Manual: Manual cervical traction & SOR in supine. Manual STM to suboccipitals, B SCMS to reducespinal compression, pain, & address muscle guarding. x15 min Modalities: 0 Precautions: 0 Therapeutic Exercise: * Indicates issued as part of HEP. Completed Exercise Reps/time Resistance Comments [x] Shld rolls fw/bw* B x10 [x] scap retractions* x10 [x] Cervical retraction* 2x10 Back to wall [x] UT stretch* 10 sec x5 B [x] pulleys 3 min [x] UBE seated L2 3x3 fw/bw [x] scap retraction / LA ext 3x10 Lu x X's 2x10 BL [x] horz abd at 90 / ER 2x10 BL [x] Push ups on stair railing 2x10 [] Overhead press / shld flex / abd 3# 2x10 [x] Self TPR with theracane to L levator insertion 5 min [x] Shld tapping on stairs 2x10 Therapeutic Activity: Completed Exercise Reps/time Resistance Comments [] [] [] [] [] [] Neuromuscular Re-education: Completed Exercise Reps/time Resistance Comments [] [] [] [] [] [] NEXT: add prone leifs Patient Response to treatment: Pt tolerated all exs & manual well & left with reduced neck pain. He then rec manual Cervical traction , SOB & STM to reduce neck pain & muscle tightness. He left with reduced pain levels stating I always feel better. Pt needed a few cues for proper ex completion. Assessment: [x] Progressing toward goals. []Goals met. []No change. [] Other: [x]Patient would benefit from skilled physical therapy services in order to reduce symptoms & improve functional mobility & meet below goals. Goals: Short Term Goals - 2 weeks Met Progressing Towards Not Met 1 Patient will demonstrate independence with appropriate issued written HEP. [] [] [] 2 pt will report overall reduced symptoms by > 50%. [] [] [] Correction Goals - 4 weeks Met Progressing Towards Not Met 1 Patient will demonstrate full cervical ROM for safe driving. [] [] [] 2 Patient will demonstrate 4+/5 B shld strength to allow overhead reaching & lifting tasks. 3 Patient will demonstrate proper posture in sitting without verbal cueing. [] [] [] 4 Patient will report ability to drive safely with full cervical Rotation ROM without pain. [] [] [] 5 Patient will demonstrate increased FOTO score to Discharge Score Predicted Value. [] [] [] Pt. Education: [x] Yes [] No [] Assessed Prior HEP/Ed Method of Education: [x]Verbal [x] Demo []Written Pt educated in proper posture & instructed to cont established HEP. Comprehension of Education: [x] Verbalizes understanding. [x] Demonstrates understanding. []Needs review. [] Demonstrates/verbalizes HEP/Ed previously given. Plan: [x] Continue current frequency to advance towards short and long-term goals. [] Goals met, discharge to HEP [] Hold or discharge therapy due to: Jenni Huang PT documented in this encounterEncompass Health Rehabilitation Hospital Of [id number] History of Present illness Narrative* Sheila Ace MA - 11/15/2022 9:50 AM EST Pt called for a refill on Trelegy Ellipta 200-62.5-25 mcg inhaler. Stated he got both of his albuterols but not Trelegy Ellipta. documented in this encounterEncompass Health Rehabilitation Hospital Of [id number] History of Present illness Narrative* Jenni Huang PT - 11/14/2022 1:30 PM EST [facility] [place] 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 Spondylosis without myelopathy or radiculopathy, cervical region M47.812 721.0 2. Neck pain M54.2 723.1 3. Cervicalgia M54.2 723.1 4. Chronic left shoulder pain M25.512 719.41 G89.29 338.29 5. Left shoulder pain, unspecified chronicity M25.512 719.41 Evaluation Assessment: Alejandro Maradiaga is a 67 y.o. who presents to physical therapy with complaints of neck pain for > 2 months with tightness in muscles. Upon evaluation Alejandro Maradiaga demonstrates decreased neck ROM, UE weakness, poor posture, muscle guarding, pain affecting driving & lifting abilities affecting their function. Clinical presentation is stable. Factors expected to impact care include past neck laminectomy, L RTC repair, arthritis, COPD. Alejandro Maradiaga will benefit from skilled physical therapy in order to address the above deficits and functionally improve the Patient's activity tolerance and allow them to return to prior of level of function with reduced symptoms. Time in/Time out Time in: 1334 Time out: 1425 Time Calculation (min): 51 Subjective: Pt reports tightness in his neck with pain 3/10 with L parascapular pain that kept him up last night. Overall his neck ROM is improving. When leaving pt states I always feel better &stand taller when I leave here. Pain In: 3/10 Out: I always feel better /10 Objective: Poor posture at rest but able to correct with cueing. Notable improved cervical SB ROM but still reduced. Significant muscle guarding surrounding neck muscles, B UTs, SCMs, & paraspinals. L>R tightness in sub occipitals & SCM. Today s Treatment: Manual: Manual cervical traction & SOR in supine. Manual STM to suboccipitals, B SCMS to reducespinal compression, pain, & address muscle guarding. x15 min Modalities: 0 Precautions: 0 Therapeutic Exercise: * Indicates issued as part of HEP. Completed Exercise Reps/time Resistance Comments [x] Shld rolls fw/bw* B x10 [] scap retractions* x10 [x] Cervical retraction* 2x10 Back to wall [x] UT stretch* 5 sec x5 B [x] pulleys 3 min [x] UBE seated L2 3x3 fw/bw [x] scap retraction / LA ext / ER 3x10 BL [x] horz abd at 90 2x10 BL [] Push ups on stair railing 2x10 [] Overhead press / shld flex / abd 3# 2x10 [x] Self TPR with theracane to L levator insertion 5 min [] Shld tapping on stairs Therapeutic Activity: Completed Exercise Reps/time Resistance Comments [] [] [] [] [] [] Neuromuscular Re-education: Completed Exercise Reps/time Resistance Comments [] [] [] [] [] [] NEXT: add prone sandra Patient Response to treatment: Pt tolerated all exs & manual well & left with reduced neck pain. Pt needed light cueing to perform band exs correctly. He then rec manual Cervical traction , SOB & STM to reduce neck pain & muscle tightness. He left with reduced pain levels stating Ialways feel better when I leave. Assessment: [x] Progressing toward goals. []Goals met. []No change. [] Other: [x]Patient would benefit from skilled physical therapy services in order to reduce symptoms & improve functional mobility & meet below goals. Goals: Short Term Goals - 2 weeks Met Progressing Towards Not Met 1 Patient will demonstrate independence with appropriate issued written HEP. [] [] [] 2 pt will report overall reduced symptoms by > 50%. [] [] [] Correction Goals - 4 weeks Met Progressing Towards Not Met 1 Patient will demonstrate full cervical ROM for safe driving. [] [] [] 2 Patient will demonstrate 4+/5 B shld strength to allow overhead reaching & lifting tasks. 3 Patient will demonstrate proper posture in sitting without verbal cueing. [] [] [] 4 Patient will report ability to drive safely with full cervical Rotation ROM without pain. [] [] [] 5 Patient will demonstrate increased FOTO score to Discharge Score Predicted Value. [] [] [] Pt. Education: [x] Yes [] No [] Assessed Prior HEP/Ed Method of Education: [x]Verbal [x] Demo []Written Pt educated in proper posture & instructed to cont established HEP. Comprehension of Education: [x] Verbalizes understanding. [x] Demonstrates understanding. []Needs review. [] Demonstrates/verbalizes HEP/Ed previously given. 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 [] Goals met, discharge to HEP [] Hold or discharge therapy due to: Jenni Huang PT documented in this encounterEncompass Health Rehabilitation Hospital Of [id number] History of Present illness Narrative* Rhonda Kaiser MD - 11/14/2022 10:30 AM EST Images from the original note were not included. Pulmonary and Sleep Medicine [address], [address] [place] [address] Time:11:24 AM EST Reason for Consultation: COPD History Of Present Illness (includes Chief Complaint) Alejandro Maradiaga is a 67 y.o. male who was referrred to our office for COPD. 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 Patient in the past saw Dr. Tolentino, for over 14 years. However he did switch to [facility], and our office is much more convenient for him. His also just retired in October. Patient is still smoking approximately 10 cigarettes a week. He is normally maintained on Trelegy 200 as well as albuterol via inhaler and duo nebs. He takes albuterol twice a day and the duo nebs twice a day. He denies ER visits or hospitalizations. He cannot recall last time he is on prednisone for lung issues although he is currently on prednisone due to neck issues. He does have prior historyof lung nodule which was benign and followed for the appropriate 2- year timeframe. He reports a mMRC of 1. He does note shortness of breath if he climbs up stairs or walks distances. He denies weightloss or hemoptysis. We did talk about his love of saline and possibly moving to [facility] where he does have a sailboat. He also has a daughter who teaches Malay in [facility]. 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 see an heat regulator Prior history of latex allergy COPD Surgical History He has no past surgical history on file. Social History: He is retired dentist, he is still smoking 10 cigarettes a week. Family History No significant family lung issues Allergies Adenosine, Ibuprofen, Latex, and Valsartan Medications Current Outpatient Medications: acetaminophen (TYLENOL 8 HOUR) 650 mg 8 hr tablet, Take by mouth., Disp: , Rfl: albuterol HFA (ProAir HFA) 90 mcg/actuation inhaler, Take 2 puffs by mouth every 4 to 6 hours as needed for wheezing, Disp: 8.5 g, Rfl: 4 albuterol HFA (ProAir HFA) 90 mcg/actuation inhaler, Inhale 2 puffs every 4 to 6 hours as needed for wheezing, Disp: 8.5 g, Rfl: 4 atorvastatin (LIPITOR) 10 mg tablet, Take 1 tablet (10 mg total) by mouth 1 (one) time each day., Disp: 30 tablet, Rfl: 5 esomeprazole (NexIUM) [address] capsule, 1 capsule, Disp: , Rfl: ctswrstawtd-gqpyuuvoprwj-skxvigcpwf (Trelegy Ellipta) 200-62.5-25 mcg inhaler, Inhale 1 puff (200 mcg total) by mouth 1 (one) time each day., Disp: 60 each, Rfl: 4 qyueabotvrt-obrufmckwpwy-ybrfwsjqvr (Trelegy Ellipta) 200-62.5-25 mcg inhaler, Inhale 1 puff by mouth daily, Disp: 60 each, Rfl: 4 dwzhjmmhehy-iijglicbgxyf-swpyuiyyxv (Trelegy Ellipta) 200-62.5-25 mcg inhaler, Inhale 1 puff by mouth daily, Disp: 60 each, Rfl: 4 itsowswmgwz-vpyieibwfumi-nqkiiemekt (Trelegy Ellipta) 200-62.5-25 mcg inhaler, Inhale 1 puff by mouth once daily, Disp: 60 each, Rfl: 4 ibuprofen (ADVIL,MOTRIN) 200 mg tablet, Take by mouth., Disp: , Rfl: ipratropium-albuteroL (DUONEB) 0.5-2.5 mg/3 mL nebulizer solution, Inhale 1 ampule by mouth via nebulizer 3 times a day as needed., Disp: 270 mL, Rfl: 4 ipratropium-albuteroL (DUONEB) 0.5-2.5 mg/3 mL nebulizer solution, Inhale 1 vial (3ml) using nebulizer three times a day as directed., Disp: 270 mL, Rfl: 4 montelukast (SINGULAIR) 10 mg tablet, Take 1 tablet (10 mg total) by mouth 1 (one) time each day., Disp: 90 tablet, Rfl: 3 montelukast (SINGULAIR) 10 mg tablet, Take 1 tablet (10 mg total) by mouth 1 (one) time each day., Disp: 90 tablet, Rfl: 3 montelukast (SINGULAIR) 10 mg tablet, Take 1 tablet (10 mg total) by mouth 1 (one) time each day., Disp: 90 tablet, Rfl: 3 multivitamin capsule, 1 (one) time each day at the same time., Disp: , Rfl: predniSONE (DELTASONE) 10 mg tablet, Take 4 tablets (40 mg total) by mouth 1 (one) time each day for 3 days, THEN 3 tablets (30 mg total) 1 (one) time each day for 3 days, THEN 2 tablets (20 mg total) 1 (one) time each day for 3 days, THEN 1 tablet (10 mg total) 1 (one) time each day for 3 days., Disp: 30 each, Rfl: 0 albuterol HFA (PROAIR HFA ; PROVENTIL HFA ; VENTOLIN HFA) 90 mcg/actuation inhaler, INHALE 2 PUFFS BY MOUTH EVERY 4 TO 6 HOURS NEEDED FOR WHEEZING, Disp: 8.5 g, Rfl: 4 albuterol HFA (ProAir HFA) 90 mcg/actuation inhaler, Inhale 2 puffs by mouth every 4 to 6 hours as needed for wheezing., Disp: 8.5 g, Rfl: 3 budesonide (PULMICORT) 0.5 mg/2 mL nebulizer solution, INHALE 2 ML (ONE AMPULE) 2 TIMES A DAY VIA NEBULIZER., Disp: 120 mL, Rfl: 6 budesonide (PULMICORT) 0.5 mg/2 mL nebulizer solution, INHALE 2 ML (ONE AMPULE) BY MOUTH TWICE A DAY VIA NEBULIZER, Disp: 120 mL, Rfl: 6 budesonide (PULMICORT) 0.5 mg/2 mL nebulizer solution, Inhale 2 mL (0.5 mg total) by nebulization 2(two) times a day., Disp: 360 mL, Rfl: 0 cyclobenzaprine (FLEXERIL) 5 mg tablet, take 1-2 tablets by mouth at bedtime as needed for pain, Disp: 30 tablet, Rfl: 0 cyclobenzaprine (FLEXERIL) 5 mg tablet, Take 1 to 2 tablet(s) by mouth once a day at bedtime for 10days (Patient not taking: Reported on 11/14/2022), Disp: 20 tablet, Rfl: 0 docosahexaenoic acid-epa 120-180 mg capsule, , Disp: , Rfl: famotidine (PEPCID) 20 mg tablet, Take 1 tablet (20 mg total) by mouth. (Patient not taking: Reported on 11/14/2022), Disp: , Rfl: methylPREDNISolone (MEDROL DOSPAK) 4 mg tablet, Take as directed on packaging instructions. (Patient not taking: Reported on 11/14/2022), Disp: 21 each, Rfl: 0 traMADoL (ULTRAM) 50 mg tablet, take 1 tablet by mouth every 6 hours as needed for pain (Patient not taking: Reported on 11/14/2022), Disp: 20 tablet, Rfl: 0 umeclidinium-vilanteroL (ANORO ELLIPTA) 62.5-25 mcg/actuation inhaler, INHALE 1 PUFF BY MOUTH EVERYDAY, Disp: 60 each, Rfl: 6 umeclidinium-vilanteroL (Anoro Ellipta) 62.5-25 mcg/actuation inhaler, Inhale 1 puff by mouth 1 (one) time each day., Disp: 60 each, Rfl: 6 Review of Systems No weight loss, no hemoptysis, no ER visits, no history of TB, no history of DVT or PE Last Recorded Vitals Visit Vitals BP (!) 168/80 (BP Location: Left arm, Patient Position: Sitting, BP Cuff Size: Adult) Pulse 75 Temp 36.4 C (97.6 F) (Temporal) Resp 16 Ht 1.803 m (71 ) Wt 78.8 kg (173 lb 11.2 oz) SpO2 96% Comment: ra/rest BMI 24.23 kg/m Smoking Status Former BSA 1.99 m Physical Exam Vital signs-noted elevated blood pressure-O2 sats 96% General-very pleasant male no cough Upper airway-normal nasal mucosa, normal oral mucosa, Mallampati 2 Neck-midline trachea no JVD Chest-slightly barrel chested hyperexpanded no masses nor deformities Lungs-clear with slightly distant breath sounds no rales rhonchi or wheezing Cardiovascular-not tachycardic no rubs murmurs or gallops Abdomen-soft nontender Extremities-no clubbing cyanosis or edema Neurological-alert and oriented normal gait, spontaneously moves all 4 extremities Relevant Results: I did review his previous radiological studies Assessment/Plan COPD -I did discuss with the patient the pathophysiology, diagnosis, and limited treatment options -I did recommend routine vaccinations -I did recommend that he stop smoking - Continue on Trelegy 200 as well as albuterol inhaler and duo nebs. I did discuss the patient thatI do not think he needs the muscarinic agent and duo nebs but would not change at this point since he is doing well -Consideration of pulmonary rehab but of note he has Medigold so would be very expensive -I will make sure he has prednisone and Z-Piyush available to him and I did review with patient when to take them. -I did recommend low-dose CT screening and I will call him with results Nicotine dependence -I did discuss with the patient need to stop smoking and ways to do so. I will see him back in 6 months. Thank you for your referral, If you have any additional questions, please let our office know. Rhonda Kaiser MD Electronically signed. Patient Care Team: Elle Cortes MD as PCP - General (Internal Medicine) documented in this encounterEncompass Health Rehabilitation Hospital Of [id number] History of Present illness Narrative* Jenni Huang, PT - 11/12/2022 3:00 PM EST [facility] [place] 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 Spondylosis without myelopathy or radiculopathy, cervical region M47.812 721.0 2. Neck pain M54.2 723.1 3. Cervicalgia M54.2 723.1 4. Chronic left shoulder pain M25.512 719.41 G89.29 338.29 5. Left shoulder pain, unspecified chronicity M25.512 719.41 Evaluation Assessment: Alejandro Maradiaga is a 67 y.o. who presents to physical therapy with complaints of neck pain for > 2 months with tightness in muscles. Upon evaluation Alejandro Maradiaga demonstrates decreased neck ROM, UE weakness, poor posture, muscle guarding, pain affecting driving & lifting abilities affecting their function. Clinical presentation is stable. Factors expected to impact care include past neck laminectomy, L RTC repair, arthritis, COPD. Alejandro Maradiaga will benefit from skilled physical therapy in order to address the above deficits and functionally improve the Patient's activity tolerance and allow them to return to prior of level of function with reduced symptoms. Time in/Time out Time in: 1503 Time out: 1549 Time Calculation (min): 46 Subjective: Pt reports tightness in his neck with pain 2-3/10 with limited mobility. He saw his PCPDr & was issued prednisone which appears to be helping. Warmer weather helps as well. Pt used his home traction 1 time over weekend but he didn't feel that it helped at all. Pain In: 2-3/10 Out: It always feels better /10 Objective: Poor posture at rest but able to correct with cueing. Reduced cervical SB ROM. Significant muscle guarding surrounding neck muscles, B UTs, SCMs, & paraspinals. Today s Treatment: Manual: Manual cervical traction & SOR in supine. Manual STM to suboccipitals, B SCMS to reducespinal compression, pain, & address muscle guarding. x13 min Modalities: 0 Precautions: 0 Therapeutic Exercise: * Indicates issued as part of HEP. Completed Exercise Reps/time Resistance Comments [x] Shld rolls fw/bw* B x10 [] scap retractions* x10 [x] Cervical retraction* 2x10 Back to wall [x] UT stretch* 5 sec x5 B [x] pulleys 3 min [x] UBE seated L2 3x3 fw/bw [x] scap retraction / LA ext / ER 2x10 GR [x] horz abd at 90 2x10 GR [x] Push ups on stair railing 2x10 [x] Overhead press / shld flex / abd 3# 2x10 [] [x] Shld tapping on stairs Therapeutic Activity: Completed Exercise Reps/time Resistance Comments [] [] [] [] [] [] Neuromuscular Re-education: Completed Exercise Reps/time Resistance Comments [] [] [] [] [] [] NEXT: add prone sandra Patient Response to treatment: Pt tolerated all exs & manual well & left with reduced neck pain. Pt needed cueing to perform HEP exs correctly. Added shld taps in push up position without additional pain. He then rec manual Cervical traction , SOB & STM to reduce neck pain & muscle tightness. He left with reduced pain levels stating I always feel better when I leave. Assessment: [x] Progressing toward goals. []Goals met. []No change. [] Other: [x]Patient would benefit from skilled physical therapy services in order to reduce symptoms & improve functional mobility & meet below goals. Goals: Short Term Goals - 2 weeks Met Progressing Towards Not Met 1 Patient will demonstrate independence with appropriate issued written HEP. [] [] [] 2 pt will report overall reduced symptoms by > 50%. 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 [] [] [] 2 Patient will demonstrate 4+/5 B shld strength to allow overhead reaching & lifting tasks. 3 Patient will demonstrate proper posture in sitting without verbal cueing. [] [] [] 4 Patient will report ability to drive safely with full cervical Rotation ROM without pain. [] [] [] 5 Patient will demonstrate increased FOTO score to Discharge Score Predicted Value. [] [] [] Pt. Education: [x] Yes [] No [] Assessed Prior HEP/Ed Method of Education: [x]Verbal [x] Demo []Written Pt educated in proper posture & instructed to cont established HEP. Comprehension of Education: [x] Verbalizes understanding. [x] Demonstrates understanding. []Needs review. [] Demonstrates/verbalizes HEP/Ed previously given. Plan: [x] Continue current frequency to advance towards short and long-term goals. [] Goals met, discharge to HEP [] Hold or discharge therapy due to: Jenni Huang PT documented in this encounterEncompass Health Rehabilitation Hospital Of [id number] History of Present illness Narrative* Jenni Huang PT - 11/05/2022 11:30 AM EST [facility] [place] 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 Spondylosis without myelopathy or radiculopathy, cervical region M47.812 721.0 2. Neck pain M54.2 723.1 3. Cervicalgia M54.2 723.1 4. Chronic left shoulder pain M25.512 719.41 G89.29 338.29 5. Left shoulder pain, unspecified chronicity M25.512 719.41 Evaluation Assessment: Alejandro Maradiaga is a 67 y.o. who presents to physical therapy with complaints of neck pain for > 2 months with tightness in muscles. Upon evaluation Alejandro Maradiaga demonstrates decreased neck ROM, UE weakness, poor posture, muscle guarding, pain affecting driving & lifting abilities affecting their function. Clinical presentation is stable. Factors expected to impact care include past neck laminectomy, L RTC repair, arthritis, COPD. Alejandro Maradiaga will benefit from skilled physical therapy in order to address the above deficits and functionally improve the Patient's activity tolerance and allow them to return to prior of level of function with reduced symptoms. Time in/Time out Time in: 1138 Time out: 1227 Time Calculation (min): 49 Subjective: Pt reports using his home neck traction unit & had reduction in Neck pain but some muscle tightness & soreness into shlds. 4/10 neck pain at rest & 6/10 with motion. Tenderness in shlds but much better. He also had to shovel driveway over weekend. He feels HEP issued at evalis helping. Pain In: 410 Out: 2/10 Objective: Poor posture at rest but able to correct with cueing. Reduced cervical SB ROM. Significant muscle guarding surrounding neck muscles, B UTs, SCMs, & paraspinals. Today s Treatment: Manual: Manual cervical traction & SOR in supine. Manual STM to suboccipitals, B SCMS to reducespinal compression, pain, & address muscle guarding. x15 min Modalities: 0 Precautions: 0 Therapeutic Exercise: * Indicates issued as part of HEP. Completed Exercise Reps/time Resistance Comments [x] Shld rolls fw/bw* B x10 [x] scap retractions* x10 [x] Cervical retraction* x10 [x] UT stretch* 5 sec x5 B [x] pulleys 3 min [x] UBE seated L2 2x2 fw/bw [x] scap retraction / LA ext / ER 2x10 GR [x] horz abd at 90 2x10 GR [x] Push ups on stair railing 2x10 [x] Overhead press / shld flex / abd 3# 2x10 [] [] Therapeutic Activity: Completed Exercise Reps/time Resistance Comments [] [] [] [] [] [] Neuromuscular Re-education: Completed Exercise Reps/time Resistance Comments [] [] [] [] [] [] NEXT: assess tolerance to additional strengthening exs. Patient Response to treatment: Pt tolerated all exs & manual well & left with reduced neck pain. Pt needed cueing to perform HEP exs correctly & to standing/sit with erect posture. Progressed to resistive scap & shld strengthening exs without additional pain. He then rec manual Cervical traction , SOB & STM to reduce neck pain & muscle tightness. He left with reduced pain l evels to 2/10. Assessment: [x] Progressing toward goals. []Goals met. []No change. [] Other: [x]Patient would benefit from skilled physical therapy services in order to reduce symptoms & improve functional mobility & meet below goals. Goals: Short Term Goals - 2 weeks Met Progressing Towards Not Met 1 Patient will demonstrate independence with appropriate issued written HEP. [] [] [] 2 pt will report overall reduced symptoms by > 50%. [] [] [] Correction Goals - 4 weeks Met Progressing Towards Not Met 1 Patient will demonstrate full cervical ROM for safe driving. [] [] [] 2 Patient will demonstrate 4+/5 B shld strength to allow overhead reaching & lifting tasks. 3 Patient will demonstrate proper posture in sitting without verbal cueing. [] [] [] 4 Patient will report ability to drive safely with full cervical Rotation ROM without pain. [] [] [] 5 Patient will demonstrate increased FOTO score to Discharge Score Predicted Value. [] [] [] Pt. Education: [x] Yes [] No [] Assessed Prior HEP/Ed Method of Education: [x]Verbal [x] Demo []Written Pt educated in proper posture & instructed to cont established HEP. Comprehension of Education: [x] Verbalizes understanding. [x] Demonstrates understanding. [x]Needs review. [] Demonstrates/verbalizes HEP/Ed previously given. Plan: [x] Continue current frequency to advance towards short and long-term goals. [] Goals met, discharge to HEP [] Hold or discharge therapy due to: Jenni Huang PT documented in this encounterEncompass Health Rehabilitation Hospital Of [id number] History of Present illness Narrative* Jenni Huang PT - 10/30/2022 9:30 AM EST [facility] [place] 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 Spondylosis without myelopathy or radiculopathy, cervical region M47.812 721.0 Ambulatory referral to Physical Therapy and Athletic Training 2. Neck pain M54.2 723.1 Subjective: Chief Complaint: B neck pain in suboccipital area & B SCMs. Denies UE pain, numbness, or tingling. Pain: /10 currently. Worse 3-02/17 Date of Injury: 2 months ago Mechanism of Injury: woke up with neck pain Reported Functional Limitations: Limited driving ability due to limited rotation ROM, limited neck flexion with eating. Position of comfort sitting with head straight. Limited forward bending & lifting from floor level. 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 Patient Learning Preferences: [x] Demonstration [x] Reading [x] Listening [x] Pictures Barriers to Learning: [x] None [] Language [] Hearing [] Cognition Medications: [x] Refer to full medical record Allergies: [x] Refer to full medical record Pertinent Surgical/Medical History: No past surgical history on file.; No past medical history on file. 30 years ago L sided C 7 laminectomy. 5 years ago had ORIF R ankle Sinus surgery 7 years ago L RTC surgery 15 years ago Comorbidities/PMHx: [] Obesity [] Dialysis []Blood clots [x] COPD [] Dementia []Diabetes [] Stroke [] Sleep apnea [] HTN [] Vascular disease [] Rheumatic disease [x] Arthritis [] AK/Heart Problems [] Cancer [] Pacemaker [] Other [x]Refer to full medical chart in [facility] []Unremarkable [x] Wears glasses/contacts [] [] Bowel or Bladder Issues Tests: [x] X-Ray: [] MRI: [] Other: 10/07/22 Multilevel DDD Objective: [place] Precautions: YES Observations: B mild dupuytren deformity B hands. L AC joint normal position but pt states a few months ago it was malaligned then fixed itself. Posture: increased kyphosis of T spine. Moderate forward head & grounhded shlds. B shlds held elevated with B UT activation. Functional Mobility: WNL but with notable eduction in neck ROM & twists trunk with attempted neck rotation. [x]Cervical mobility screen: []Lumbar mobility screen: Active Motion Portion of normal Flexion 1/2 with stretching Extension WNL Sidebending -left 1/4 -right 1/2 Rotation -left 1/4 -right 1/2 *indicates pain production Palpation: TTP surrounding suboccipital area & B SCMs & UTs where there is significant muscle guarding & tension diffusely L > R. Spinal Special Tests: TESTS (+/-) Positive Negative Cervical Compression [] [x] Cervical Distraction [] [x] Spurling's [] [x] Rahul Test [] [] Slump Test [] [] TAHMINA's [] [] ROM/Strength/Special Tests: ELBOWS: LEFT RIGHT AROM PROM MMT AROM PROM MMT Flexion WNL 5/5 WNL 5/5 Extension WNL 5/5 WNL 5/5 SHOULDERS: LEFT RIGHT AROM PROM MMT AROM PROM MMT Flexion WFL 4/5 WFL 4/5 Extension /5 /5 Abduction WNL 4/5 WFL 4/5 Internal Rotation /5 /5 External Rotation WNL 4-/5 WNL 4/5 *indicates pain production Gait Assessment: WNL Patient Education Provided: Pt educated in PT POC & goals. Informed Consent obtained. [x]Verbalized Understanding [x]Demonstrated Understanding [x]Issued HEP Goals: Short Term Goals - 2 weeks Met Progressing Towards Not Met 1 Patient will demonstrate independence with appropriate issued written HEP. [] [] [] 2 pt will report overall reduced symptoms by > 50%. [] [] [] Correction Goals - 4 weeks Met Progressing Towards Not Met 1 Patient will demonstrate full cervical ROM for safe driving. [] [] [] 2 Patient will demonstrate 4+/5 B shld strength to allow overhead reaching & lifting tasks. 3 Patient will demonstrate proper posture in sitting without verbal cueing. [] [] [] 4 Patient will report ability to drive safely with full cervical Rotation ROM without pain. [] [] [] 5 Patient will demonstrate increased FOTO score to Discharge Score Predicted Value. [] [] [] Assessment: Alejandro Maradiaga is a 67 y.o. who presents to physical therapy with complaints of neck pain for > 2 months with tightness in muscles. Upon evaluation Alejandro Maradiaga demonstrates decreased neck ROM, UE weakness, poor posture, muscle guarding, pain affecting driving & lifting abilities affecting their function. Clinical presentation is stable. Factors expected to impact care include past neck laminectomy, L RTC repair, arthritis, COPD. Alejandro Maradiaga will benefit from skilled physical therapy in order to address the above deficits and functionally improve the Patient's activity tolerance and allow them to return to prior of level of function with reduced symptoms. Thank you for this referral. Frequency: 2 visits per week x 4 weeks Patient agrees with PT treatment plan: Yes Treatment Plan: [x] Therapeutic Exercise (86077) [] Iontophoresis: 4 mg/mL Dexamethasone Sodium Phosphate 40-120 mAmin (57631) [x] Therapeutic Activity (94033) [] Ultrasound (51399) [] Gait Training (90176) []Electrical Stimulation Unattended (59093) [x] Neuromuscular Re-education (84642) [] Electrical Stimulation Attended (10275) [x] Manual Therapy (31752) [] Aquatic Therapy (35174) [x] Instruction in HEP [] Lumbar/Cervical Traction () [] [] Dry Needling, 1 or 2 muscles () [] [] Dry Needling, 3 or more muscles () [] Vasopneumatic cold with compression () [] Hot pack/Cold Pack [facility] [place] 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 Spondylosis without myelopathy or radiculopathy, cervical region M47.812 721.0 Ambulatory referral to Physical Therapy and Athletic Training 2. Neck pain M54.2 723.1 Evaluation Assessment: Alejandro Maradiaga is a 67 y.o. who presents to physical therapy with complaints of neck pain for > 2 months with tightness in muscles. Upon evaluation Alejandro Maradiaga demonstrates decreased neck ROM, UE weakness, poor posture, muscle guarding, pain affecting driving & lifting abilities affecting their function. Clinical presentation is stable. Factors expected to impact care include past neck laminectomy, L RTC repair, arthritis, COPD. Alejandro Maradiaga will benefit from skilled physical therapy in order to address the above deficits and functionally improve the Patient's activity tolerance and allow them to return to prior of level of function with reduced symptoms. Time in/Time out Time in: 0935 Time out: 1035 Time Calculation (min): 60 Subjective: Pain In: 11/19 Out: 11/19 Objective: See above evaluation. Today s Treatment: Manual: Manual cervical traction & SOR in supine. Manual STM to suboccipitals, B SCMS to reducespinal compression, pain, & address muscle guarding. x15 min Modalities: 0 Precautions: 0 Therapeutic Exercise: * Indicates issued as part of HEP. Completed Exercise Reps/time Resistance Comments [x] Shld rolls fw/bw* B x10 [x] scap retractions* x10 [x] Cervical retraction* x10 [x] UT stretch* 5 sec x5 B [x] pulleys 3 min [] [] [] [] [] [] [] Therapeutic Activity: Completed Exercise Reps/time Resistance Comments [] [] [] [] [] [] Neuromuscular Re-education: Completed Exercise Reps/time Resistance Comments [] [] [] [] [] [] NEXT: UBE, RTC band strengthening. Patient Response to treatment: Pt tolerated all exs & manual well & left with same 11/19 neck pain. Assessment: [] Progressing toward goals. []Goals met. []No change. [] Other: [x]Patient would benefit from skilled physical therapy services in order to reduce symptoms & improve functional mobility & meet below goals. Goals: Short Term Goals - 2 weeks Met Progressing Towards Not Met 1 Patient will demonstrate independence with appropriate issued written HEP. [] [] [] 2 pt will report overall reduced symptoms by > 50%. 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 [] [] [] 2 Patient will demonstrate 4+/5 B shld strength to allow overhead reaching & lifting tasks. 3 Patient will demonstrate proper posture in sitting without verbal cueing. [] [] [] 4 Patient will report ability to drive safely with full cervical Rotation ROM without pain. [] [] [] 5 Patient will demonstrate increased FOTO score to Discharge Score Predicted Value. [] [] [] Pt. Education: [x] Yes [] No [] Assessed Prior HEP/Ed Method of Education: [x]Verbal [x] Demo [x]Written Pt educated in proper posture & issued printed HEP. Comprehension of Education: [x] Verbalizes understanding. [x] Demonstrates understanding. []Needs review. [] Demonstrates/verbalizes HEP/Ed previously given. 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 [] Goals met, discharge to HEP [] Hold or discharge therapy due to: Jenni Huang, PT documented in this encounterEncompass Health Rehabilitation Hospital Of [id number] History of Present illness Narrative* Kalie Montiel, PT - 02/06/2022 10:30 AM EDT Physical Therapy Treatment PT on hold for 2 weeks, He will email me within 30 days if PT needed Patient Name: Alejandro Maradiaga Referring Provider:?Jasiel Ac MD?? Today's Date: 02/06/2022 Visit Number: 4?? IE: (right hand dominant) Chief Complaint: pain between scapulas and left side of his spine, woke up with it, partial laminectomy C7 on left 25 years ago - numbness on left 2nd finger. Medrol dose pack and Flexerell from Dr. Ac, from [facility]. Denies UE weakness. DOI: 2 months ago STEPHANIE: NKI, I think I slept funny Pertinent Surgical/Medical History: No past surgical history on file.; No past medical history on file. 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 Subjective: reports that he hasn't had neck pain since the eval Pain Rating (0-10 scale): 0 Location: n/a Functional limitations: Stabbing pain into left scapula - RESOLVED Concerned about grinding wenches for sailing - NOT CONCERNED Today s Treatment: Manual: STM: B UT - taught him how to self massage Modalities: PRN: mech traction Precautions: none, L RCR 2017, laminectomy C7 Exercises: Exercise Reps/time Weight/level Comments C UBE 6', 3fwd/3 back 1/2 FR pec str 2 min * Supine chin tucks 10x3 He kept extending his head when resting * Supine rotation with towel OP 10x3 Face turning red due to not breathing * Doorway pec str 2x30 H Seated retraction with Cerv Ext 10x3 H 1/2 FR alt flex, flies, punches, angels 2x10 Rows, ext 2x10 GREEN Tband pull aparts against wall x15 3 H BLUE 1/2 FR VTI stretching 1 x 60 H * Cat/cow 10 x 10 H Quad- give handout for HEP next Seated Cerv Rot/SB Seated chin tucks 10x3 H Levator stretch w/ self OP 5x10 H L tightness > R Shoulder rolls x20 Prone LT strengthening ITY's C = complete *=HEP Exercise Comments: Began treatment with UBE for dynamic activity and scapular control. Followed by MT. NEXT: UBE, FR, strengthening, VTI Assessment: [ X] Progressing toward goals. [ ] No change. [ ] Other: [ X] Patient would continue to benefit from skilled physical therapy services in order to achieve goals. Goals: Short-Term Goals: Ind with HEP. Long-Term Goals: Improve B cervical rotation to min limitation for ease with ADLS. Improve B postural strength to good to dec thoracic kyphosis and improve posture. Improve B pectoralis flexibility to WNL to dec left scapular pain with ADLs. Pt. Education: [ X] Yes [ ] No [ x] Assessed Prior HEP or Education Method of Education: [x ] Verbal [x ] Demo [ ] Written Comprehension of Education: [ X] Verbalizes understanding. [ ] Demonstrates understanding. [ ] Needs review. [ ] Demonstrates/verbalizes HEP/Ed previously given. Plan: [ X] Continue current frequency toward long and short term goals. Kalie Montiel PT documented in this encounterEncompass Health Rehabilitation Hospital Of [id number] [facility] PATIENT NAME:ALEJANDRO MARADIAGA MRN: [id number] AGE: 66 Years SEX: Male PHONE:[phone] DOS: 07/12/2021 06:15:00 : 1955 ER PHYSICIAN:Kamlesh Miguel DO, V PCP: Elle Cortes MD CHIEF COMPLAINT: SOB Allergies Latex (SOB - Shortness of breath) NSAIDS () adenosine (SOB - Shortness of breath) Problems Active Zenkers diverticulum Hypertrophy of nasal turbinates Deviated nasal septum Chronic sinusitis Arthritis COPD Hyperlipidemia Osteopenia Gastroesophageal reflux disease DISCHARGE DIAGNOSIS: COPD exacerbation; Pneumonia DISCHARGE INSTRUCTIONS: Community-Acquired Pneumonia, Adult; Chronic Obstructive Pulmonary Disease HISTORY OF PRESENT ILLNESS: MEDICAL DECISION MAKING: PROCEDURES: DISPOSITION: Time of Departure From ER 07/12/2021 09:44 Discharge/Transfer From ER Home 01 MEDICATION LISTS: CURRENT MEDICATION LIST albuterol (ProAir HFA 90 mcg/Puff MDI) 2 Puff(s) Inhalation As Needed. amoxicillin-clavulanate (Augmentin 875 mg-125 mg oral tablet) 1 Tab(s) By Mouth every 12 hours for 10 Days. Refills: 0. azithromycin (Azithromycin 5 Day Dose Pack 250 mg oral tablet) 1 Tab(s) By Mouth once a day for 5 Days. Refills: 0. famotidine (Pepcid 20 mg oral tablet) 1 Tab(s) By Mouth Every Other Day. montelukast (Singulair 10 mg oral tablet) 1 Tab(s) By Mouth every evening. multivitamin 1 Tab(s) By Mouth every evening. PredniSONE (predniSONE 20 mg oral tablet) 2 Tab(s) By Mouth once a day for 5 Days. Refills: 0. umeclidinium-vilanterol (Anoro Ellipta 62.5 mcg-25 mcg inhalation powder) MEDICATIONS GIVEN DURING MEDICAL VISIT Sodium Chloride 0.9% 1,000 mL last dose given on 07/12/2021 at 06:45 Route: Intravenous Bolus Infuse over 60 mins Warm IV fluids albuterol-ipratropium 3 mL last dose given on 07/12/2021 at 06:45 Route: Nebulized Medication methylprednisolone 125 mg last dose given on 07/12/2021 at 06:45 Route: Intravenous Give Slowly Over 1-3 Minutes - Auto Substitute IV Push for IVPB Reconstitute with 2mL of sterile water for reconstitution for a final concentration of 62.5 mg/mL If using acto-vials, disregard this note as these vials already have the diluent included and DO NOT REQUIRE FURTHER RECONSTITUTION diphenhydramine 25 mg last dose given on 07/12/2021 at 07:26 Route: IV Push Administer at 25 mg/min (for IV Push). metoclopramide 10 mg last dose given on 07/12/2021 at 07:24 Route: IV Push Lower doses can be given IV push undiluted over 1 to 2 minutes. albuterol-ipratropium 3 mL last dose given on 07/12/2021 at 07:29 Route: Nebulized Medication magnesium sulfate 2 Gm last dose given on 07/12/2021 at 07:32 Route: IV Piggyback GIVE OVER 20 MINUTES albuterol 2.5 mg last dose given on 07/12/2021 at 09:04 Route: Nebulized Medication albuterol-ipratropium 3 mL last dose given on 07/12/2021 at 09:04 Route: Nebulized Medication LAB RESULTS: LABORATORY TESTS: Pending Lab Result(s): Date Order Results 07/12/2021 06:31 Blood Gas Venous POCT Docking ProceOrdered Abnormal Lab Result(s): Date Order Results 07/12/2021 06:31 pH Venous POCT H 7.43 07/12/2021 06:31 pCO2 Venous POCT L 38 mmHg 07/12/2021 06:31 pO2 Venous POCT H 52 mmHg 07/12/2021 06:31 O2 Saturation Venous POCT H 90.0 % 07/12/2021 06:31 Glucose POCT H 182 mg/dL 07/12/2021 06:31 O2 Hemoglobin POCT H 86.9 % 07/12/2021 06:16 MCV POCT -Clinic H 105.1 FL 07/12/2021 06:16 MCH POCT -Clinic H 37.3 Picograms 07/12/2021 06:16 Neutrophil Count POCT H 8.0 thou/mcL 07/12/2021 06:16 Neutrophil Percent POCT H 77.9 % 07/12/2021 06:16 Lymphocytes Percent POCT L 16.4 % 07/12/2021 06:30 Total Protein POCT H 8.0 gm/dL 07/12/2021 06:30 AST/SGOT POCT H 70 Units/L 07/12/2021 06:30 Alkaline Phosphatase POCT H 94 Units/L 07/12/2021 06:30 ALT/SGPT POCT H 88 Units/L 07/12/2021 06:30 GGT POCT H 293 Units/L 07/12/2021 06:30 Glucose POCT H 185 mg/dL RADIOLOGY: RADIOLOGY RESULT(S) (Please contact Medical Records office for further information): 07/12/2021 06:55 XR Chest 1 View EXAMINATION TYPE: XR Chest 1 ViewDATE OF EXAM : 07/12/2021 7:05 AMHISTORY: SOBCOMPARISON: 05/08/2021FINDINGS: Normal heart size. Normal mediastinal silhouette. Mild patchy infiltrates in the right midlung. Stable linear scarring in the left midlung. No large pleural effusion. No pneumothorax.IMPRESSION:Mild right midlung opacity suspicious for infiltrate.[place] thanks you for the opportunity to care for your patient. Workstation ID: [id number] DIAGNOSTICS: FOLLOW UP: With: Address: When: Elle Cortes [facility] [address], [address] [place] [id number] Business (1) Comments: [facility] Bacteria identified Aer cx Nom (Drain)[facility] Microbiology PROCEDURE: Culture Drainage SOURCE: Sinus BODY SITE: COLLECTED DATE/TIME: 08/29/2020 09:30 EDT RECEIVED DATE/TIME: 08/29/2020 09:30 EDT START DATE/TIME: 08/29/2020 09:30 EDT FREE TEXT SOURCE: SINUS-SINUS INTERFACED REPORTS Final Report [] Verified Date/Time/Personnel: 08/31/2020 17:49 EDT CONTRIBUTOR_SYSTEM, CO_PN LIGHT STAPHYLOCOCCUS SPECIES (COAGULASE NEGATIVE) Preliminary Report [] Verified Date/Time/Personnel: 08/31/2020 12:11 EDT CONTRIBUTOR_SYSTEM, CO_PN LIGHT STAPHYLOCOCCUS SPECIES (COAGULASE NEGATIVE) Preliminary Report [] Verified Date/Time/Personnel: 08/30/2020 23:39 EDT CONTRIBUTOR_SYSTEM, CO_PN LIGHT STAPHYLOCOCCUS SPECIES (COAGULASE NEGATIVE) SENSITIVITY TO FOLLOW Preliminary Report [] Verified Date/Time/Personnel: 08/30/2020 19:02 EDT CONTRIBUTOR_SYSTEM, CO_PN LIGHT STAPHYLOCOCCUS SPECIES (COAGULASE NEGATIVE) SENSITIVITY AND IDENTIFICATION TO FOLLOW Gram Stain [] Verified Date/Time/Personnel: 08/30/2020 08:23 EDT CONTRIBUTOR_SYSTEM, CO_PN RARE POLYS No Epithelials NO ORGANISMS SEEN SUSCEPTIBILITY RESULTS Staphylococcus species (coagulase negative) Antibiotic TINY Interp TINY Dilution Clindamycin Resistant >=4 Erythromycin Resistant >=8 Oxacillin Susceptible <=0.25 Tetracycline Resistant >=16 Trimethoprim/ Susceptible <=10 SulfamethoxazoleMount Clermont County HospitalComment on above:Performed By: #### 607-2 #### [place] [id number] [facility] note* Diagnosis Cervicalgia- Primary documented in this encounter [facility] note* Diagnosis Spondylosis without myelopathy or radiculopathy, cervical region- Primary Neck pain Cervicalgia documented in this encounter [facility] note* Diagnosis Spondylosis without myelopathy or radiculopathy, cervical region- Primary Neck pain Cervicalgia Cervicalgia Chronic left shoulder pain Pain in joint, shoulder region Left shoulder pain, unspecified chronicity documented in this encounter [facility] note* Diagnosis Nicotine dependence, uncomplicated, unspecified nicotine product type- Primary Chronic obstructive pulmonary disease, unspecified COPD type ([facility]) documented in this encounter [facility] note* Diagnosis Spondylosis without myelopathy or radiculopathy, cervical region- Primary Neck pain Cervicalgia Cervicalgia Chronic left shoulder pain Pain in joint, shoulder region Left shoulder pain, unspecified chronicity documented in this encounter [facility] note* Diagnosis Spondylosis without myelopathy or radiculopathy, cervical region- Primary Neck pain Cervicalgia Cervicalgia Chronic left shoulder pain Pain in joint, shoulder region Left shoulder pain, unspecified chronicity documented in this encounter [facility] noteNo [employer] Other Reason for visit Narrative* Consultation (Routine) - Authorized Specialty Diagnoses / Procedures Referred By Contac t Referred To Contact Physical Therapy Diagnoses Pain in left shoulder Cervicalgia Jasiel Ac MD [address] [place] [address] [facility] [address] [facility] [address] [place] [address] Referral ID Status Reason Start Date Expiration Date Visits Requested Visits Authorized [id number] Authorized Specialty Services Required 01/15/2022 07/14/2022 1 8 [facility] for visit Narrative* Consultation (Routine) - Authorized Specialty Diagnoses / Procedures Referred By Contac t Referred To Contact Physical Therapy Diagnoses Spondylosis without myelopathy or radiculopathy, cervical region Hunter Cortes DO [address] [place] [address] [facility] [address] [facility] [address] [place] [address] Referral ID Status Reason Start Date Expiration Date Visits Requested Visits Authorized [id number] Authorized Specialty Services Required 2 04/07/2023 1 8 [facility] Summary Purpose Family History No Family History Records FoundNo Family History Records FoundNo Family History Records FoundNo Family History Records FoundNo Family History Records FoundNo Family History Records Found Advance Directives No Advanced Directives Records FoundDocuments on File Type Date 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 [place] Referral ID Status Reason Start Date Expiration Date V isits Requested Visits Authorized [id number] Authorized 11/14/2022 05/13/2023 1 1 Reason *Waiting for appt Establish for COPD - moved here from [place] Diagnosis 1 Chronic bronchitis, unspecified chronic bronchitis type (J42) Referral Organization [facility] Referring Provider First Name Shanell Referring Provider Last Name Kiara Referring Provider Specialty Family Medi cine Referred Organization [facility] Pulmonary Dise ase Referred Provider Tima Osorio Referred Address [address] [place] [address],[facility] [address],[place], [place],[address] Referred Provider Specialty Pulmonary Di seases Referral Priority Routine General Notes Nga Arellano 03:29:44 PM >received today, sent P2P Additional Source Comments (unrecognized sect ion and content) No Status Records FoundNo Status Records FoundNo Status Records FoundNo Status Records FoundNo Status Records FoundNo Status Records Found INFORMATION SOURCE (unrecogn ized section and content) DATE CREATED AUTHOR 07/13/2021 [facility] DATE CREATED AUTHOR AUTHOR'S ORGANIZ ATION 11/25/2022 [facility] DATE CREATED AUTHOR AUTHOR'S ORGANIZ ATION 01/18/2023 [facility] DATE CREATED AUTHOR AUTHOR'S ORGANIZ ATION 03/04/2023 [facility] DATE CREATED AUTHOR AUTHOR'S ORGANIZ ATION 12/03/2023 [facility] DATE CREATED AUTHOR AUTHOR'S ORGANIZ ATION 12/13/2023 [facility] Care Teams (unrecognized sec tion and content) [employer] Relationship Specialty Start Date End Date Elle Cortes MD [address] [address] PCP - General Internal Medicine 10/18/21 [employer] Relationship Specialty Start Date End Date Elle Cortes MD [address] [facility] [address] [place] [address] PCP - General Internal Medicine 10/18/21 [employer] Relationship Specialty Start Date End Date Elle Cortes MD [address] [address] PCP - General Internal Medicine 10/18/21 [employer] Relationship Specialty Start Date End Date Elle Cortes MD [address] [address] PCP - General Internal Medicine 10/18/21 [employer] Relationship Specialty Start Date End Date Elle Cortes MD [address] [address] PCP - General Internal Medicine 10/18/21 [employer] Relationship Specialty Start Date End Date Elle Cortes MD [address] [address] PCP - General Internal Medicine 10/18/21 [employer] Relationship Specialty Start Date End Date Elle Cortes MD [address] [address] PCP - General Internal Medicine 10/18/21 Ordered Prescriptions (unrec ognized section and content) Prescription Sig Dispensed Refills Start Date End Da te azithromycin (Zithromax Z-Piyush) 250 mg tabletIndications:Chroni c obstructive pulmonary disease, unspecified COPD type (CMS/HCC) Take 2 tablets (500 mg) the first day, then 1 tablet (250 mg) daily for 4 days. 6 tablet 3 11/14/2022 predniSONE (DELTASONE) 10 mg tabletIndications:Chroni c obstructive pulmonary disease, unspecified COPD type (CMS/HCC) Take 4 tablets (40 mg total) by mouth 1 (one) time each day for 3 days, THEN 3 tablets (30 mg total) 1 (one) time each day for 3 days, THEN 2 tablets (20 mg total) 1 (one) time each day for 3 days, THEN 1 tablet (10 mg total) 1 (one) time each day for 3 days. 30 each 3 11/14/2022 11/26/2022 ipratropium-albuteroL (DUONEB) 0.5-2.5 mg/3 mL nebulizer solutionIndications:Laminator Preforms carmen obstructive pulmonary disease, 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 270 mL 3 11/14/2022 albuterol HFA (PROAIR HFA ; PROVENTIL HFA ; VENTOLIN HFA) 90 mcg/actuation inhalerIndications:Chron ic obstructive pulmonary disease, unspecified COPD type (CMS/HCC) Inhale 2 puffs 2 (two) times a day. 6.7 g 3 11/14/2022 Prescription Sig Dispensed Refills Start Date End Da te okdvbzacakb-eggslxaszzpw-an lanterol (Trelegy Ellipta) 200-62.5-25 mcg inhaler Inhale 1 puff (200 mcg total) by mouth 1 (one) time each day. 60 each 4 11/15/2022 Reason for Visit (unrecogniz ed section and content) Reason Onset Date Comments Med Refill 11/15/2022 FOR RECORDS PERTAINING TO PATIENTS WHO ARE OR HAVE BEEN ENROLLED IN A CHEMICAL DEPENDENCY/SUBSTANCEABUSE PROGRAM, SOME INFORMATION MAY BE OMITTED. This clinical summary was aggregated from multiple sources. Caution should be exercised in using it in the provision of clinical care. This summary normalizes information from multiple sources, and as a consequence, information in this document may materially change the coding, format and clinical context of patient data. In addition, data may be omitted in some cases. CLINICAL DECISIONS SHOULD BE BASED ON THE PRIMARY CLINICAL RECORDS. [employer] provides no warranty or guarantee of the accuracy or completeness of information in this document.
[2023-12-15 17:02] LABS: Anion Gap 13.2; BUN Creatinine Ratio 18.9; Calcium 9.8 mg/dL (8.5-10.1); Carbon Dioxide 27.1 mmol/L (21.0-32.0); Chloride 99 mmol/L (98-107); Estimated GFR (African America >60 (>=60); Estimated GFR (Non-African Ame >60 (>=60); Glucose 146 mg/dL (74-106); Potassium 4.3 mmol/L (3.5-5.1); Sodium 135 mmol/L (136-145)
== END 2023-12-15 16:22 | disposition home or self-care (01) ==
LOC: LAB 16:26
PROVIDERS: PCP Family Medicine; Visit Provider Nurse Practitioner Family
DX: I50.21 Acute systolic (congestive) heart failure (principal); E83.42 Hypomagnesemia
CPT/HCPCS: 36415; 80048; 83735

== ENCOUNTER 2023-12-19 09:59 | Outpatient (OUT) | payer MEDICARE, SELFPAY ==
--- OUTSIDE RECORDS SUMMARY | 2023-12-19 10:07 | XMS_ITS | CCD ---
Author Name Unknown Address [address] [place] [address] Organization [facility] Care Team Providers Care Internal Controls Specialist Name Role Phone Sophia CEBALLOS, Elle Knowles Primary Care Provider NOBLEJael JENNI, JENNI Attending Unavailable MARCELLA CORTESEL Referring Unavailable FOSSELMAN, ELLE D Primary Care Unavailable NOBLET JENNI, JENNI Attending Unavailable HUNTER CORTES Referring Unavailable FOSSELMAN, ELLE D Primary Care Unavailable NOBLET JENNI, JENNI Attending Unavailable SOPHIA HUNTER Referring Unavailable FOSSELMAN, ELLE D Primary Care Unavailable RHONDA KAISER Attending Unavailable FOSSELMAN, ELLE D Primary Care Unavailable NOBLET JENNI, JENNI Attending Unavailable SOPHIA HUNTER Referring Unavailable FOSSELMAN, ELLE D Primary Care Unavailable NOBLET JENNI, JENNI Attending Unavailable SOPHIA HUNTER Referring Unavailable FOSSELMAN, ELLE D Primary Care Unavailable RHONDA KAISER Referring Unavailable FOSSELMAN, ELLE D Primary Care Unavailable NOBLET JENNI, JENNI Attending Unavailable SOPHIA HUNTER Referring Unavailable FOSSELMAN, ELLE D Primary Care Unavailable NOBLET JENNI, JENNI Attending Unavailable ASHLEEELNASEEM HUNTER Referring Unavailable FOSSELMAN, ELLE D Primary Care Unavailable TIANA BROWN~[id number], TIANA BROWN Attending Unavailable SINAN LEWIS S Referring Unavailable FOSSELMAN, ELLE D Primary Care Unavailable STORM VALDES Attending Unavailabl virginie LEWIS NEELAY S Referring Unavailable FOSSELMAN, ELLE D Primary Care Unavailable STORM VALDES Attending Unavailabl e JOSHUA NEELAY S Referring Unavailable FOSSELMAN, ELLE D Primary Care Unavailable TIANA BROWN~[id number], TIANA BROWN Attending Unavailable SINAN LEWIS Referring Unavailable ELLE CORTES Primary Care Unavailable AVA GODFREY Attending Unavailable ELLE CORTES Primary Care Unavailable Shanell Craig Unavailable Charicardo Irma Unavailable Shanell Craig Primary Care Unavailable Irma Ontiveros Attending Unavailable Charicardo, Kamal Admitting Unavailable Tima Osorio Unavailable TAMIR, HANI Referring Unavailable TAMIR, HANI Referring Unavailable LALIT EGAN Attending Unavailable ABEL CASTANEDA Attending Unavailable TAMIR, HANI Referring Unavailable TAMIR, HANI Referring Unavailable SHAIKH MATHEW Referring Unavailable TAMIR, HANI Admitting Unavailable TAMIR, HANI Attending Unavailable TAMIR, HANI Referring Unavailable TAMIR, HANI Referring Unavailable ELVIRA WESTON Referring Unavailabl e TAMIR, HANI Referring Unavailable TAMIR, HANI Referring Unavailable Allergies Allergy Classification Reported Allergen(s) Allergy Type Date of Onset Reaction(s) Facility (20 sources) Adenosine; Translations: [ADENOSINE] Drug Allergy 08-23-2021 Shortness of breath, anaphylaxis [facility] (20 sources) Latex; Translations: [LATEX] Drug Allergy 08-23-2021 Shortness of breath [facility] (11 sources) Ibuprofen; Translations: [IBUPROFEN] Drug Allergy 10-31-2021 Shortness of breath [facility] (11 sources) valsartan; Translations: [VALSARTAN] Drug Allergy 10-31-2021 [facility] Medications Current Medications Medication Drug Class(es) Dates [...] hr tablet Take by mouth. 0 Active [id number] 200 actuat albuterol 0.09 mg/actuat metered dose [...] a day Active Fluticasone Furo ate Active gourccbjyqm-kmgukdvjjlyr-eye anterol (Trelegy Ellipta) 200-62.5-25 mcg inhaler (20 sources) Start: 11-15-2022 take 1 puff(s) by mouth once daily xofweuaahnz-aingpmjltdqx-rohuxnitvz (Trelegy Ellipta) 200-62.5-25 mcg inhaler Inhale 1 puff (200 mcg total) by mouth 1 (one) time each day. 60 each 4 11/15/2022 Active Start: 10-10-2022 take 1 puff(s) by mouth once daily fuoxepelvst-eeqiuxqoldtc-hcxlftuuuj (Raphael legy Ellipta) 200-62.5-25 mcg inhaler Inhale 1 puff by mouth once daily 60 each 4 10/10/2022 Active Start: 05-30-2022 take 1 puff(s) by mouth once daily ligdseevinc-bcdamqgvhygz-ywltthprpp (Raphael legy Ellipta) 200-62.5-25 mcg inhaler Inhale 1 puff by mouth daily 60 each 4 05/30/2022 Active Start: 04-18-2022 take 1 puff(s) by mouth once daily wgzkvbadebi-cswaklxnzcns-afhitqyvdq (Raphael legy Ellipta) 200-62.5-25 mcg inhaler Inhale 1 puff by mouth daily 60 each 4 04/18/2022 Active Start: 12-27-2021 End: 11-15-2022 take 1 puff(s) by mouth once daily nginemqivxe-wqemvsutwpsy-ywilmyaqbj (Raphael legy Ellipta) 200-62.5-25 mcg inhaler Inhale 1 puff (200 mcg total) by mouth 1 (one) time each day. 60 each 4 12/27/2021 11/15/2022 Discontinued (Reorder) Start: 12-27-2021 take 1 puff(s) by mouth once daily yyrgfkyptav-vgbpgskkjzqv-zowdcurvsl (Raphael legy Ellipta) 200-62.5-25 mcg inhaler Inhale 1 puff (200 mcg total) by mouth 1 (one) time each day. 60 each 4 12/27/2021 Active Start: 12-27-2021 take 1 puff(s) by inhalation once daily clzcxsdoarj-keuwkdejlarz-okissqkspd (Raphael legy Ellipta) 200-62.5-25 mcg inhaler Inhale [...] Chronic obstructive pulmonary disease, unspecified COPD type ([facility]) Take 4 tablets (40 mg total) by [...] 1 (one) time each day. 60 each 08/23/2021 Active Completed/Discontinued Medications Medication Drug Class(es) [...] Date Documented Da te Episodic/Chronic Cardiac dysrhythmias (18 sources) Atrial flutter; Translations: [Unspecified atrial flutter] Onset: 10-15-2023 Chronic Chronic obstructive pulmonary disease and bronchiectasis (20 sources) Chronic obstructive lung disease; Translations: [Chronic obstructive pulmonary disease, unspecified] Onset: 03-03-2023 Chronic Congestive heart failure; nonhypertensive (10 sources) Chronic systolic heart failure; Translations: [Chronic systolic (congestive) heart failure] Onset: 10-15-2023 Chronic Disorders of lipid metabolism (2 sources) Hyperlipidemia, unspecified; Translations: [Hyperlipidemia, unspecified] Onset: 12-16-2023 Chronic Inflammation; infection of eye (except that [...] sources) Tobacco use; Translations: [Tobacco use] Onset: 12-13-2023 Episodic Residual codes; unclassified (2 sources) Other [...] Test Name Value Interpretation Reference Range Facility Office Visiton 12-16-2023 Follow-up visit [id number] Alejandro Maradiaga 1955 M Date Provider Department Center 12/16/2023 ABEL TORRES [facility] Family History Problem Relation Age of Onset Stroke Mother Family Status - Relation Status Age at Mother Level of Service:42602 [place] OFFICE/OUTPATIENT [facility] 60 MINUTES Normal [facility] CT lung screeningon 11-27-19 CT lung screening [facility] [place] [address] CT Scan Report Signed Patient: Alejandro Maradiaga MR#: [id number] 530 : 1955 Acct:[id number] Age/Sex: 68 / M ADM Date: 11/27/23 Loc: [facility] Room: Type: [facility] Attending Dr: Irma Ontiveros MD Copies to: [...] component. Impression dictated by: Asim Davidson Jr., D.O.11/27/2023 2:10 PM Dictation Location: [place] [address] Transcribed By: [facility] 11/27/23 1410 Dictated By: Asim Davidson Jr, DO 11/27/23 1406 Signed By: 11/27/[address] [facility] Follow-Upon 10-22-2023 Follow-Up [id number] Alejandro Maradiaga 1955 M Date Provider Department Center 10/22/2023 LALIT LARES CARD [facility] Family History Problem Relation Age of Onset Stroke Mother Family Status - Relation Status Age at Mother Level of Service:05430 [facility] OFFICE/OUTPATIENT ESTABLISHED MOD MDM 30-39 MIN Reason for Visit and Comments: Hospital Follow-up [832] Atrial Flutter [101] Congestive Heart Failure [127] Normal [facility] 36on 10-20-2023 36 Discharge date: 10/18/23 Call date: 10/20/23 Spoke with: patient HF Follow-up date: 10/22/23 Med reconciliation completed: yes Questions/Concerns: Home meds reviewed with pt. Pt denied any CP or SOB. Pt stated he has been taking his daily weights as well as HR and SpO2. Pt stated he will be at his follow up appt. Cancer Registry Coordinator instructed pt to bring a log of weights and HR to follow up appt. Normal [facility] Documentationon 10-20-2023 Documentation [id number] Alejandro Maradiaga 1955 M Date Provider Department [place] 10/20/2023 RANI IRIZARRY [facility] No family history on file Reason for Visit and Comments: HF inpatient satisfaction survey sent. [Other] Normal [facility] Telephoneon 10-20-2023 Telephone [id number] Alejandro Maradiaga 1955 M Date [facility] Department [place] 10/20/2023 RANI IRIZARRY [facility] No family history on file Reason for Visit and Comments: HF post discharge call [Other] Normal [facility] 30on 10-18-2023 30 The patient is Moderately Stable - Low risk of patient condition declining or worsening The patient's goals for the shift include comfort and rest The clinical goals for the shift include vss Over the shift, the patient continued to make progress toward the following goals. Normal [facility] APTTon 10-18-2023 ACTIVATED PARTIAL THROMBOPLASTIN TIME IN PPP BY COAGULATION ASSAY 33.7 Seconds Normal 25.0-35.0 [facility] Comment on above: Result Comment: Clin ical significance of the APTT is questionable in the presence of heparin. Performed By: #### L [id number] #### [facility] ([facility]) [address] [place] [address] CBCon 10-18-2023 Erythrocyte distribution width (RBC) [Ratio] 13.2 % Normal 11.5-15.0 [facility] Comment on above: Performed By: #### L [id number] #### [facility] ([facility]) [address] [place] [address] ERYTHROCYTE MEAN CORPUSCULAR HEMOGLOBIN CONCENTRATION (G/DL) BY AUTOMATED 34.1 g/dL Normal 32.0-35.0 [facility] Comment on above: Performed By: #### L [id number] #### [facility] ([facility]) [address] [place] [address] Hematocrit (Bld) [Volume fraction] 45.5 % Normal 39.0-55.0 [facility] Comment on above: Performed By: #### L [id number] #### [facility] ([facility]) [address] [place] [address] Hemoglobin (Bld) [Mass/Vol] 15.5 g/dL Normal 13.0-17.0 [facility] Comment on above: Performed By: #### L [id number] #### [facility] ([facility]) [address] [place] [address] MCH (RBC) [Entitic mass] 33.1 pg High 27.0-33.0 [facility] Comment on above: Performed By: #### L [id number] #### [facility] ([facility]) [address] [place] [address] MCV (RBC) [Entitic vol] 97.2 fL Normal 82.0-98.0 [facility] Comment on above: Performed By: #### L [id number] #### [facility] ([facility]) [address] [place] [address] PLATELETS (10*3/UL) IN BLOOD AUTOMATED COUNT 318 10*3/uL Normal 150-400 [facility] Comment on above: Performed By: #### L [id number] #### [facility] ([facility]) [address] [place] [address] RBC (Bld) [#/Vol] 4.68 10*6/uL Normal 4.20-5.70 [facility] Comment on above: Performed By: #### L [id number] #### [facility] ([facility]) [address] [place] [address] WBC (Bld) [#/Vol] 7.34 10*3/uL Normal 4.00-10.60 [facility] Comment on above: Performed By: #### L [id number] #### [facility] ([facility]) [address] [place] [address] DIGOXIN LEVELon 10-18-2023 DIGOXIN (NG/ML) IN SER/PLAS 1.1 ng/mL Normal 0.7-2 [facility] Comment on above: Performed By: #### L [id number] #### [facility] ([facility]) [address] [place] [address] Documentationon 10-18-2023 Documentation [id number] Alejandro Maradiaga 1955 M Date Provider Department Center 10/18/[id number] KEANE [facility] No family history on file Normal [facility] 30on 10-17-2023 30 The patient is [...] the next 3 months Outcome: Progressing Normal [facility] ANESon 10-17-2023 ANES Patient: Alejandro Maradiaga Choose an anesthesia record [...] discussed with attending. Additional Equipment Requests Normal [facility] ANES - Attestation signed by Alex Reyes MD [...] discussed with attending. Additional Equipment Requests Normal [facility] APTTon 10-17-2023 ACTIVATED PARTIAL THROMBOPLASTIN TIME IN PPP BY COAGULATION ASSAY 147.2 Seconds Critically high 25.0-35.0 [facility] Comment on above: Result Comment: Clin ical significance of the APTT is questionable in the presence of heparin. Performed By: #### L [id number] ####[facility] ([facility])[address] [place] [address] ACTIVATED PARTIAL THROMBOPLASTIN TIME IN PPP BY COAGULATION ASSAY 113.7 Seconds High 25.0-35.0 [facility] Comment on above: Result Comment: Clin ical significance of the APTT is questionable in the presence of heparin. Performed By: #### L [id number] ####[facility] ([facility])[address] [place] [address] BASIC METABOLIC PANELon Anion gap [Moles/Vol] 12 mmol/L Normal 7-20 [facility] Comment on above: Performed By: #### L [id number] #### [facility] ([facility]) [address] [place] [address] Calcium [Mass/Vol] 9.2 mg/dL Normal 8.6-10.3 [facility] Comment on above: Performed By: #### L [id number] #### [facility] ([facility]) [address] [place] [address] Chloride [Moles/Vol] 104 mmol/L Normal 98-107 [facility] Comment on above: Performed By: #### L [id number] #### [facility] ([facility]) [address] [place] [address] CO2 [Moles/Vol] 24 mmol/L Normal 21-31 [facility] Comment on above: Performed By: #### L [id number] #### [facility] ([facility]) [address] [place] [address] Creatinine [Mass/Vol] 0.64 mg/dL Low 0.70-1.30 [facility] Comment on above: Performed By: #### L [id number] #### [facility] ([facility]) [address] [place] [address] GLOMERULAR FILTRATION RATE ML/MIN/1.73 SQ M.PREDICTED 103.1 mL/min/1.73m*2 Normal >60.0 [facility] Comment on above: Result Comment: The [facility]???s estimated glomerular filtration rate (eGFR) will [...] individuals. Performed By: #### L [id number] #### [facility] ([facility]) [address] [place] [address] Glucose [Mass/Vol] 109 mg/dL High 70-100 [facility] Comment on above: Performed By: #### L [id number] #### [facility] ([facility]) [address] [place] [address] Potassium [Moles/Vol] 3.6 mmol/L Normal 3.5-5.1 [facility] Comment on above: Performed By: #### L [id number] #### [facility] ([facility]) [address] [place] [address] Sodium [Moles/Vol] 136 mmol/L Normal 136-145 [facility] Comment on above: Performed By: #### L [id number] #### [facility] ([facility]) [address] [place] [address] Urea nitrogen [Mass/Vol] 5 mg/dL Low 7-25 [facility] Comment on above: Performed By: #### L [id number] #### [facility] ([facility]) [address] [place] [address] UREA NITROGEN/CREATININE (MASS RATIO) IN SER/PLAS 7.8 Normal [facility] Comment on above: Performed By: #### L [id number] #### [facility] ([facility]) [address] [place] [address] CBCon 10-17-2023 Erythrocyte distribution width (RBC) [Ratio] 12.9 % Normal 11.5-15.0 [facility] Comment on above: Performed By: #### L [id number] ####[facility] ([facility])[address] [place] [address] ERYTHROCYTE MEAN CORPUSCULAR HEMOGLOBIN CONCENTRATION (G/DL) BY AUTOMATED 34.1 g/dL Normal 32.0-35.0 [facility] Comment on above: Performed By: #### L [id number] ####[facility] ([facility])[address] [place] [address] Hematocrit (Bld) [Volume fraction] 45.7 % Normal 39.0-55.0 [facility] Comment on above: Performed By: #### L [id number] ####[facility] ([facility])[address] [place] [address] Hemoglobin (Bld) [Mass/Vol] 15.6 g/dL Normal 13.0-17.0 [facility] Comment on above: Performed By: #### L [id number] ####[facility] ([facility])[address] [place] [address] MCH (RBC) [Entitic mass] 33.1 pg High 27.0-33.0 [facility] Comment on above: Performed By: #### L [id number] ####[facility] ([facility] [place] [address] MCV (RBC) [Entitic vol] 96.8 fL Normal 82.0-98.0 [facility] Comment on above: Performed By: #### L [id number] ####[facility] ([facility] [place] [address] PLATELETS (10*3/UL) IN BLOOD AUTOMATED COUNT 300 10*3/uL Normal 150-400 [facility] Comment on above: Performed By: #### L [id number] ####[facility] ([facility])[address] [place] [address] RBC (Bld) [#/Vol] 4.72 10*6/uL Normal 4.20-5.70 [facility] Comment on above: Performed By: #### L [id number] ####[facility] ([facility])[address] [place] [address] WBC (Bld) [#/Vol] 7.46 10*3/uL Normal 4.00-10.60 [facility] Comment on above: Performed By: #### L [id number] ####[facility] ([facility])[address] [place] [address] HPon 10-17-2023 H&P reviewed. The patient was examined and there are no changes to the H&P. Will prcoeed with coronary angiogram and right heart cath to further assess newly reduced EF. Procedures' details, risks and benefits discussed with the patient and he's agreeable. Normal [facility] HP - Attestation signed by Alex [...] presented emergency department as a transfer from [facility] for uncontrolled atrial flutter. Patient eventually presented to [facility] on 10/13/2020 treated with chief complaint [...] for possible cardioversion by cardiology here at [facility]. Echocardiogram revealed atrial flutter with right bundle [...] General: N (more content not included)... Normal [facility] MAGNESIUMon 10-17-2023 Magnesium [Mass/Vol] 2.0 mg/dL Normal 1.9-2.7 [facility] Comment on above: Performed By: #### L [id number] ####[facility] ([facility] [place] [address] NURSNOTEon 10-17-2023 NURSNOTE Digoxin changed to oral, still holding med for HR under 60 per Cardiology, Gonzalez, instruction Normal [facility] NURSNOTE Per Estefanía Keane, hold 500mcg of Digoxin, but continue 100mcg digoxin q6 order, hold if HR less than 100 Update: new orders are to hold if HR less than 60 Normal [facility] TROPONIN Ion 10-17-2023 Troponin I.cardiac [Mass/Vol] 0.03 ng/mL Normal 0.00-0.04 [facility] Comment on above: Performed By: #### L [id number] #### [facility] ([employer]) [address] [place] [address] Troponin I.cardiac [Mass/Vol] 0.03 ng/mL Normal 0.00-0.04 [facility] Comment on above: Performed By: #### L [id number] #### [facility] ([employer]) [address] [place] [address] 30on 10-16-2023 30 The patient is Moderately [...] urinary retention Outcome: Adequate for Discharge Normal [facility] 30 Daily Case Managemen t Update Multidisciplinary rounds have been completed. Barriers to Discharge: Tx from [facility] with afib. TTE showed and EF of [...] appropriate for patient?: Yes New Consults: Normal [facility] 30 The patient is Moderately Stable [...] the next 3 months Outcome: Progressing Normal [facility] 30 The patient is Moderately Stable [...] maintained within normal limits Outcome: Progressing Normal [facility] APTTon 10-16-2023 ACTIVATED PARTIAL THROMBOPLASTIN TIME IN PPP BY COAGULATION ASSAY 99.3 Seconds High 25.0-35.0 [facility] Comment on above: Result Comment: Clin ical significance of the APTT is questionable in the presence of heparin. Performed By: #### L [id number] #### [facility] ([facility]) [address] [place] [address] ACTIVATED PARTIAL THROMBOPLASTIN TIME IN PPP BY COAGULATION ASSAY 51.6 Seconds High 25.0-35.0 [facility] Comment on above: Result Comment: Clin ical significance of the APTT is questionable in the presence of heparin. Performed By: #### L [id number] ####[facility] ([facility])[address] [place] [address] ACTIVATED PARTIAL THROMBOPLASTIN TIME IN PPP BY COAGULATION ASSAY 79.9 Seconds High 25.0-35.0 [facility] Comment on above: Result Comment: Clin ical significance of the APTT is questionable in the presence of heparin. Performed By: #### L [id number] #### [facility] ([facility]) [address] [place] [address] CBC WITH AUTO DIFFERENTIALon 10-16-2023 Basophils (Bld) [#/Vol] 0.07 10*3/uL Normal 0.00-0.20 [facility] Comment on above: Performed By: #### L [id number] #### [facility] ([facility]) [address] [place] [address] Basophils/100 WBC (Bld) 0.9 % Normal 0.0-1.0 [facility] Comment on above: Performed By: #### L [id number] #### [facility] ([facility]) [address] [place] [address] Eosinophils (Bld) [#/Vol] 0.73 10*3/uL High 0.00-0.50 [facility] Comment on above: Performed By: #### L [id number] #### [facility] ([facility]) [address] [place] [address] Eosinophils/100 WBC (Bld) 9.8 % High 0.0-6.0 [facility] Comment on above: Performed By: #### L [id number] #### [facility] ([facility]) [address] [place] [address] Erythrocyte distribution width (RBC) [Ratio] 12.9 % Normal 11.5-15.0 [facility] Comment on above: Performed By: #### L [id number] #### [facility] ([facility]) [address] [place] [address] ERYTHROCYTE MEAN CORPUSCULAR HEMOGLOBIN CONCENTRATION (G/DL) BY AUTOMATED 33.7 g/dL Normal 32.0-35.0 [facility] Comment on above: Performed By: #### L [id number] #### [facility] ([facility] [address] [place] [address] Hematocrit (Bld) [Volume fraction] 40.6 % Normal 39.0-55.0 [facility] Comment on above: Performed By: #### L [id number] #### [facility] ([facility]) [address] [place] [address] Hemoglobin (Bld) [Mass/Vol] 13.7 g/dL Normal 13.0-17.0 [facility] Comment on above: Performed By: #### L [id number] #### [facility] ([facility]) [address] [place] [address] Immature granulocytes (Bld) [#/Vol] 0.04 10*3/uL Normal 0.00-0.20 [facility] Comment on above: Performed By: #### L [id number] #### [facility] ([facility]) [address] [place] [address] Immature granulocytes/100 WBC (Bld) 0.5 % Normal 0.0-1.0 [facility] [facility] Comment on above: Performed By: #### L [id number] #### [facility] ([facility]) [address] [place] [address] Lymphocytes (Bld) [#/Vol] 3.21 10*3/uL Normal 1.20-4.00 [facility] Comment on above: Performed By: #### L [id number] #### [facility] ([facility]) [address] [place] [address] Lymphocytes/100 WBC (Bld) 43.3 % Normal 20.0-45.0 [facility] Comment on above: Performed By: #### L [id number] #### [facility] ([facility]) [address] [place] [address] MCH (RBC) [Entitic mass] 33.6 pg High 27.0-33.0 [facility] Comment on above: Performed By: #### L [id number] #### [facility] ([facility]) [address] [address] MCV (RBC) [Entitic vol] 99.5 fL High 82.0-98.0 [facility] Comment on above: Performed By: #### L [id number] #### [facility] ([facility]) [address] [address] Monocytes (Bld) [#/Vol] 0.81 10*3/uL Normal 0.10-1.00 [facility] Comment on above: Performed By: #### L [id number] #### [facility] ([facility]) [address] [address] Monocytes/100 WBC (Bld) 10.9 % Normal 5.0-12.0 [facility] Comment on above: Performed By: #### L [id number] #### [facility] ([facility]) [address] [place] [address] Neutrophils (Bld) [#/Vol] 2.56 10*3/uL Normal 1.60-7.60 [facility] Comment on above: Performed By: #### L [id number] #### [facility] ([facility]) [address] [address] Neutrophils/100 WBC (Bld) 34.6 % Low 40.0-72.0 [facility] Comment on above: Performed By: #### L [id number] #### [facility] ([facility]) [address] [place] [address] NRBC (PER 100 WBCS) BY AUTOMATED COUNT 0.0 % Normal 0 [facility] Comment on above: Performed By: #### L [id number] #### [facility] ([facility]) [address] [place] [address] PLATELETS (10*3/UL) IN BLOOD AUTOMATED COUNT 274 10*3/uL Normal 150-400 [facility] Comment on above: Performed By: #### L [id number] #### [facility] ([facility]) [address] [place] [address] RBC (Bld) [#/Vol] 4.08 10*6/uL Low 4.20-5.70 [facility] Comment on above: Performed By: #### L [id number] #### [facility] ([facility]) [address] [place] [address] WBC (Bld) [#/Vol] 7.42 10*3/uL Normal 4.00-10.60 [facility] Comment on above: Performed By: #### L [id number] #### [facility] ([facility]) [address] [address] CONSULTon 10-16-2023 CONSULT - Attestation signed by [...] Teaching Physician's Revisions: none Eugene Gutierrez MD [place] Cardiology Cardiology Consult Note Reason for Consult: Atrial Flutter HPI: Alejandro Maradiaga is a 68 y.o. male presented emergency department as a transfer from [facility] for uncontrolled atrial flutter. Patient eventually presented to [facility] on 10/13/2020 treated with chief complaint [...] for possible cardioversion by cardiology here at [facility]. Echocardiogram revealed atrial flutter with right bundle [...] -- 90 16 96 % -- -- 10/15/231999 141/59 36.2 ???C (97.1 ???F) -- 103 [...] is aler (more content not included)... Normal [facility] HEMOGLOBIN A1Con 10-16-2023 Glucose [Mass/Vol] 126 mg/dL Normal [facility] Comment on above: Performed By: #### L [id number] ####[facility] ([facility])[address] [place] [address] HbA1c (Bld) [Mass fraction] 6.0 % Normal 4.0-6.0 [facility] Comment on above: Performed By: #### L [id number] ####[facility] ([facility])[address] [place] [address] LIPID PANELon 10-16-2023 CHOL/HDL 5.2 mg/dL Normal [facility] Comment on above: Performed By: #### L [id number] #### [facility] ([facility]) [address] [place] [address] Cholesterol [Mass/Vol] 104 mg/dL Low 120-200 [facility] Comment on above: Performed By: #### L [id number] #### [facility] ([facility]) [address] [place] [address] Magnesium [Mass/Vol] 72 mg/dL Normal 40-149 [facility] Comment on above: Result Comment: TRIG LYCERIDE REFERENCE RANGE: 20 YEARS AND OLDER CARDIOVASCULAR RISK LESS THAN 150 mg/dL LOW RISK 150 TO 199 mg/dL BORDERLINE RISK 200 mg/dL AND GREATER HIGH RISK Performed By: #### L [id number] #### [facility] ([facility]) [address] [place] [address] Magnesium [Mass/Vol] 70 mg/dL Normal 0-160 [facility] Comment on above: Performed By: #### L [id number] #### [facility] ([facility]) [address] [place] [address] Magnesium [Mass/Vol] 20 mg/dL Low 23-92 [facility] Comment on above: Performed By: #### L [id number] #### [facility] ([facility]) [address] [place] [address] NON HDL CHOL. (LDL+VLDL) 84 Normal [facility] Comment on above: Performed By: #### L [id number] #### [facility] ([facility]) [address] [place] [address] TOTAL VLDL-C 14 mg/dL Normal 0-40 [facility] Comment on above: Performed By: #### L [id number] #### [facility] ([facility]) [address] [place] [address] MAGNESIUMon 10-16-2023 Magnesium [Mass/Vol] 1.9 mg/dL Normal 1.9-2.7 [facility] Comment on above: Performed By: #### L [id number] #### [facility] ([facility]) [address] [place] [address] NURSNOTEon 10-16-2023 STAN Keane, Cardiology, called check writer salesperson back at, no cath today, resume previous diet [facility] STAN Cardiology, Gonzalez, called check writer salesperson back and stated she called chemical laboratory technician and he is scheduled. Cancer Registry Coordinator called pie bakery laborer to double check and they said they still had not heard anything regarding this pt yet and they would call Cardiology to see if they could figure out where the confusion was. Will continue to monitor. [facility] STAN Cancer Registry Coordinator has called Cardiology ([phone]) on multiple occasions today to verify what plan was for pt due to NPO status (refer to Provider Notification charting). Cancer Registry Coordinator had been assured multiple times that order was going to be put in for a cath request, but at time of writing, still no order has been put in. Cancer Registry Coordinator called Cardiology again and fellow told check writer salesperson Yes, order is in, it is just not showing up in the system, pie bakery laborer is aware, thanks for calling and proceeded to hang up the phone before check writer salesperson could get a word out. Cancer Registry Coordinator proceeded to call chemical laboratory technician, who told check writer salesperson they had not seen or heard anything regarding this patient today. As of this time, still no Cardiology note to verify plan for pt heart cath. Will continue to monitor. [facility] TROPONIN Ion 10-16-2023 Troponin I.cardiac [Mass/Vol] 0.03 ng/mL Normal 0.00-0.04 [facility] Comment on above: Performed By: #### L [id number] #### [facility] ([facility]) [address] [place] [address] 30on 10-15-2023 30 The patient is Moderately [...] and maintained or improved Outcome: Progressing Normal [facility] APTTon 10-15-2023 ACTIVATED PARTIAL THROMBOPLASTIN TIME IN PPP BY COAGULATION ASSAY 34.4 Seconds Normal 25.0-35.0 [facility] Comment on above: Result Comment: Clin ical significance of the APTT is questionable in the presence of heparin. Performed By: #### L [id number] ####[facility] ([facility])[address] [place] [address] B-TYPE NATRIURETIC PEPTIDEon 10-15-2023 Natriuretic peptide B (Bld) [Mass/Vol] 969 pg/mL High 0-100 [facility] Comment on above: Performed By: #### L [id number] ####[facility] ([facility])[address] [place] [address] BASIC METABOLIC PANELon Anion gap [Moles/Vol] 12 mmol/L Normal 7-20 [facility] Comment on above: Performed By: #### L [id number] ####[facility] ([facility])[address] [place] [address] Calcium [Mass/Vol] 9.2 mg/dL Normal 8.6-10.3 [facility] Comment on above: Performed By: #### L [id number] ####[facility] ([facility])[address] [place] [address] Chloride [Moles/Vol] 103 mmol/L Normal 98-107 [facility] Comment on above: Performed By: #### L [id number] ####[facility] ([facility] [place] [address] CO2 [Moles/Vol] 24 mmol/L Normal 21-31 [facility] Comment on above: Performed By: #### L [id number] ####[facility] ([facility])[address] [place] [address] Creatinine [Mass/Vol] 0.63 mg/dL Low 0.70-1.30 [facility] Comment on above: Performed By: #### L [id number] ####[facility] ([facility])[address] [place] [address] GLOMERULAR FILTRATION RATE ML/MIN/1.73 SQ M.PREDICTED 103.6 mL/min/1.73m*2 Normal >60.0 [facility] Comment on above: Result Comment: The [facility]???s estimated glomerular filtration rate (eGFR) will [...] of individuals. Performed By: #### L [id number] ####[facility] ([facility])[address] [place] [address] Glucose [Mass/Vol] 105 mg/dL High 70-100 [facility] Comment on above: Performed By: #### L [id number] ####[facility] ([facility])[address] [place] [address] Potassium [Moles/Vol] 3.5 mmol/L Normal 3.5-5.1 [facility] Comment on above: Performed By: #### L [id number] ####[facility] ([facility])[address] [place] [address] Sodium [Moles/Vol] 135 mmol/L Low 136-145 [facility] Comment on above: Performed By: #### L [id number] ####[facility] ([facility])[address] [place] [address] Urea nitrogen [Mass/Vol] 9 mg/dL Normal 7-25 [facility] Comment on above: Performed By: #### L [id number] ####[facility] ([facility] [place] [address] UREA NITROGEN/CREATININE (MASS RATIO) IN SER/PLAS 14.3 Normal [facility] Comment on above: Performed By: #### L [id number] ####[facility] ([facility])[address] [place] [address] CBC WITH AUTO DIFFERENTIALon 10-15-2023 Basophils (Bld) [#/Vol] 0.07 10*3/uL Normal 0.00-0.20 [facility] Comment on above: Performed By: #### L [id number] ####[facility] ([facility])[address] [place] [address] Basophils/100 WBC (Bld) 1.0 % Normal 0.0-1.0 [facility] Comment on above: Performed By: #### L [id number] ####[facility] ([facility])[address] [place] [address] Eosinophils (Bld) [#/Vol] 0.55 10*3/uL High 0.00-0.50 [facility] Comment on above: Performed By: #### L [id number] ####[facility] ([facility])[address] [place] [address] Eosinophils/100 WBC (Bld) 7.7 % High 0.0-6.0 [facility] Comment on above: Performed By: #### L [id number] ####[facility] ([facility])[address] [place] [address] Erythrocyte distribution width (RBC) [Ratio] 12.9 % Normal 11.5-15.0 [facility] Comment on above: Performed By: #### L [id number] ####[facility] ([facility])[address] [place] [address] ERYTHROCYTE MEAN CORPUSCULAR HEMOGLOBIN CONCENTRATION (G/DL) BY AUTOMATED 34.2 g/dL Normal 32.0-35.0 [facility] Comment on above: Performed By: #### L [id number] ####[facility] ([facility] [place] [address] Hematocrit (Bld) [Volume fraction] 44.8 % Normal 39.0-55.0 [facility] Comment on above: Performed By: #### L [id number] ####[facility] ([facility])[address] [place] [address] Hemoglobin (Bld) [Mass/Vol] 15.3 g/dL Normal 13.0-17.0 [facility] Comment on above: Performed By: #### L [id number] ####[facility] ([facility])[address] [place] [address] Immature granulocytes (Bld) [#/Vol] 0.04 10*3/uL Normal 0.00-0.20 [facility] Comment on above: Performed By: #### L [id number] ####[facility] ([facility])[address] [place] [address] Immature granulocytes/100 WBC (Bld) 0.6 % Normal 0.0-1.0 [facility] Comment on above: Performed By: #### L [id number] ####[facility] ([facility])[address] [place] [address] Lymphocytes (Bld) [#/Vol] 2.62 10*3/uL Normal 1.20-4.00 [facility] Comment on above: Performed By: #### L [id number] ####[facility] ([facility])[address] [place] [address] Lymphocytes/100 WBC (Bld) 36.9 % Normal 20.0-45.0 [facility] Comment on above: Performed By: #### L [id number] ####[facility] ([facility])[address] [place] [address] MCH (RBC) [Entitic mass] 33.6 pg High 27.0-33.0 [facility] Comment on above: Performed By: #### L [id number] ####[facility] ([facility])[address] [place] [address] MCV (RBC) [Entitic vol] 98.2 fL High 82.0-98.0 [facility] Comment on above: Performed By: #### L [id number] ####[facility] ([facility])[address] [place] [address] Monocytes (Bld) [#/Vol] 0.66 10*3/uL Normal 0.10-1.00 [facility] Comment on above: Performed By: #### L [id number] ####[facility] ([facility])[address] [place] [address] Monocytes/100 WBC (Bld) 9.3 % Normal 5.0-12.0 [facility] Comment on above: Performed By: #### L [id number] ####[facility] ([facility])[address] [place] [address] Neutrophils (Bld) [#/Vol] 3.16 10*3/uL Normal 1.60-7.60 [facility] Comment on above: Performed By: #### L [id number] ####[facility] ([facility])[address] [place] [address] Neutrophils/100 WBC (Bld) 44.5 % Normal 40.0-72.0 [facility] Comment on above: Performed By: #### L [id number] ####[facility] ([facility] [place] [address] NRBC (PER 100 WBCS) BY AUTOMATED COUNT 0.0 % Normal 0 [facility] Comment on above: Performed By: #### L [id number] ####[facility] ([facility] [place] [address] PLATELETS (10*3/UL) IN BLOOD AUTOMATED COUNT 279 10*3/uL Normal 150-400 [facility] Comment on above: Performed By: #### L [id number] ####[facility] ([facility])[address] [place] [address] RBC (Bld) [#/Vol] 4.56 10*6/uL Normal 4.20-5.70 [facility] Comment on above: Performed By: #### L [id number] ####[facility] ([facility])[address] [place] [address] WBC (Bld) [#/Vol] 7.10 10*3/uL Normal 4.00-10.60 [facility] Comment on above: Performed By: #### L [id number] ####[facility] ([facility])[address] [place] [address] HEPATIC FUNCTION PANELon Albumin [Mass/Vol] 4.0 g/dL Normal 3.5-5.7 [facility] Comment on above: Performed By: #### L [id number] ####[facility] ([facility])[address] [place] [address] ALP [Catalytic activity/Vol] 73 U/L Normal 34-104 [facility] Comment on above: Performed By: #### L [id number] ####[facility] ([facility])[address] [place] [address] ALT [Catalytic activity/Vol] 12 U/L Normal 7-52 [facility] Comment on above: Performed By: #### L [id number] ####[facility] ([facility])[address] [place] [address] AST [Catalytic activity/Vol] 20 U/L Normal 13-39 [facility] Comment on above: Performed By: #### L [id number] ####[facility] ([facility])[address] [place] [address] Bilirubin [Mass/Vol] 1.0 mg/dL Normal 0.3-1.0 [facility] Comment on above: Performed By: #### L [id number] ####[facility] ([facility])[address] [place] [address] Magnesium [Mass/Vol] 0.3 mg/dL High 0-0.2 [facility] Comment on above: Performed By: #### L [id number] ####[facility] ([facility] [place] [address] Protein [Mass/Vol] 7.1 g/dL Normal 6.0-8.3 [facility] Comment on above: Performed By: #### L [id number] ####[facility] ([employer])[address] [place] [address] MAGNESIUMon 10-15-2023 Magnesium [Mass/Vol] 1.6 mg/dL Low 1.9-2.7 [facility] Comment on above: Performed By: #### L [id number] ####[facility] ([employer])[address] [place] [address] PROTIME-INRon 10-15-2023 INR IN PPP BY COAGULATION ASSAY 1.28 High 0.90-1.10 [facility] Comment on above: Result Comment: ACCC [...] CHEST 1995;[id number]. Performed By: #### L [id number] ####[facility] ([employer])[address] [place] [address] PROTHROMBIN TIME (PT) IN PPP BY COAGULATION ASSAY 16.0 Seconds High 12.3-14.8 [facility] Comment on above: Performed By: #### L [id number] ####[facility] ([employer])[address] [place] [address] TROPONIN Ion 10-15-2023 Troponin I.cardiac [Mass/Vol] 0.03 ng/mL Normal 0.00-0.04 [facility] Comment on above: Performed By: #### L [id number] #### [facility] ([facility]) [address] [place] [address] TSH3 REFLEX TO FT4on 023 THYROTROPIN (MIU/L) IN SER/PLAS BY DETECTION LIMIT <= 0.05 MIU/L 3.20 mIU/L Normal 0.34-5.60 [facility] Comment on above: Performed By: #### L [id number] #### [facility] ([facility]) [address] [place] [address] URINALYSISon 10-15-2023 BILIRUBIN, TOTAL PRESENCE IN URINE Negative Normal Negative [facility] Comment on above: Performed By: #### L [id number] #### [facility] ([facility]) [address] [place] [address] Clarity (U) Clear Normal Clear [facility] Comment on above: Performed By: #### L [id number] #### [facility] ([facility]) [address] [place] [address] Color (U) Yellow Normal Yellow [facility] Comment on above: Performed By: #### L [id number] #### [facility] ([facility]) [address] [place] [address] Glucose (U) [Mass/Vol] Negative Normal Negative [facility] Comment on above: Performed By: #### L [id number] #### [facility] ([facility]) [address] [place] [address] HEMOGLOBIN PRESENCE IN URINE Large Abnormal Negative [facility] Comment on above: Performed By: #### L [id number] #### [facility] ([facility]) [address] [place] [address] Ketones Ql (U) Negative Normal Negative [facility] Comment on above: Performed By: #### L [id number] #### [facility] ([facility]) [address] [place] [address] LEUKOCYTE ESTERASE PRESENCE IN URINE BY TEST STRIP Trace Abnormal Negative [facility] Comment on above: Performed By: #### L [id number] #### [facility] ([facility]) [address] [place] [address] NITRITE PRESENCE IN URINE Negative Normal Negative [facility] Comment on above: Performed By: #### L [id number] #### [facility] ([facility]) [address] [place] [address] pH (U) 6.0 [pH] Normal 5.0-8.0 [facility] Comment on above: Performed By: #### L [id number] #### [facility] ([facility]) [address] [place] [address] Protein (U) [Mass/Vol] 30 mg/dL Abnormal Negative [facility] Comment on above: Performed By: #### L [id number] #### [facility] ([facility]) [address] [place] [address] Specific gravity (U) [Rel density] 1.015 Normal 1.015-1.020 [facility] Comment on above: Performed By: #### L [id number] #### [facility] ([facility]) [address] [place] [address] UROBILINOGEN (EU/DL) IN URINE 4.0 EU/dL Abnormal Negative [facility] Comment on above: Performed By: #### L [id number] #### [facility] ([facility]) [address] [place] [address] URINALYSIS MICROSCOPICon CASTS IN URINE Present Abnormal None Seen [facility] Comment on above: Performed By: #### L [id number] #### [facility] ([facility]) [address] [place] [address] CRYSTALS IN URINE Normal [facility] Comment on above: Performed By: #### L [id number] #### [facility] (BE[facility]ER) [address] [place] [address] HYALINE CASTS /LPF IN URINE SEDIMENT BY MICROSCOPY 2 /LPF High <1 [facility] Comment on above: Performed By: #### L [id number] #### [facility] (BEAKER) [address] [place] [address] MUCUS (#/HPF) IN URINE SEDIMENT Few Normal None Seen, Occasional, Few [facility] Comment on above: Performed By: #### L [id number] #### [facility] ([facility]ER) [address] [place] [address] RBC (#/HPF) IN URINE SEDIMENT >100 Abnormal None Seen [facility] Comment on above: Performed By: #### L [id number] #### [facility] (BE[facility]ER) [address] [place] [address] SQUAMOUS EPITHELIAL CELLS (#/HPF) IN URINE SEDIMENT None Seen Normal None Seen, Occasional [facility] Comment on above: Performed By: #### L [id number] #### [facility] (BE[facility]ER) [address] [place] [address] WBC (LEUKOCYTE) (#/HPF) IN URINE SEDIMENT 21-50 Abnormal None Seen [facility] Comment on above: Performed By: #### L [id number] #### [facility] (BEAKER) [address] [place] [address] CBC with differential (COPC) on 01-16-2023 BASO # 0.1 K CUMM Normal 0.0-0.2 [facility] Comment on above: Order Comment: Items in this order include: Comprehensive Metabolic Panel, Lipid Panel, Free T4, PSA (Screening Medicare Only), TSH, CBC with differential, Testing Performed By: [facility] [address] [place] [address] CLIA#:[id number] Dr. Abbe Celeste, Book Editor Performed By: #### C 4125, C408, C215, C47, C400, C8 #### [facility], Inc[facility] [address] [place] [address] Basophils/100 WBC (Bld) 1.1 % Normal 0.0-3.0 [facility] Comment on above: Order Comment: Items in this order include: Comprehensive Metabolic Panel, Lipid Panel, Free T4, PSA (Screening Medicare Only), TSH, CBC with differential, Testing Performed By: [facility] [address] [place] [address] CLIA#:[id number] Dr[address] Abbe Celeste, Book Editor Performed By: #### C 4125, C408, C215, C47, C400, C8 #### [facility] [address] [place] [address] EOS # 0.7 K CUMM High 0.0-0.4 [facility] Comment on above: Order Comment: Items in this order include: Comprehensive Metabolic Panel, Lipid Panel, Free T4, PSA (Screening Medicare Only), TSH, CBC with differential, Testing Performed By: [facility] [address] [place] [address] CLIA#:[id number] Dr. Abbe Celeste, Book Editor Performed By: #### C 4125, C408, C215, C47, C400, C8 #### [facility] [address] [place] [address] Eosinophils/100 WBC (Bld) 9.5 % High 0.0-7.0 [facility] Comment on above: Order Comment: Items in this order include: Comprehensive Metabolic Panel, Lipid Panel, Free T4, PSA (Screening Medicare Only), TSH, CBC with differential, Testing Performed By: [facility] [address] [place] [address] CLIA#:[id number] Dr. Abbe Celeste, Book Editor Performed By: #### C 4125, C408, C215, C47, C400, C8 #### [facility] [address] [place] [address] Erythrocyte distribution width (RBC) [Ratio] 13.4 % Normal 11.5-15.5 [facility] Comment on above: Order Comment: Items in this order include: Comprehensive Metabolic Panel, Lipid Panel, Free T4, PSA (Screening Medicare Only), TSH, CBC with differential, Testing Performed By: [facility] [address] [place] [address] CLIA#:[id number] [address]. Abbe Celeste, Book Editor Performed By: #### C 4125, C408, C215, C47, C400, C8 #### [facility] [address] [place] [address] Hematocrit (Bld) [Volume fraction] 45.6 % Normal 42.0-52.0 [facility] Comment on above: Order Comment: Items in this order include: Comprehensive Metabolic Panel, Lipid Panel, Free T4, PSA (Screening Medicare Only), TSH, CBC with differential, Testing Performed By: [facility] [address] [place] [address] CLIA#:[id number] [address]. Abbe Celeste, Book Editor Performed By: #### C 4125, C408, C215, C47, C400, C8 #### [facility] [address] [place] [address] Hemoglobin (Bld) [Mass/Vol] 15.9 g/dL Normal 13.5-18.0 [facility] Comment on above: Order Comment: Items in this order include: Comprehensive Metabolic Panel, Lipid Panel, Free T4, PSA (Screening Medicare Only), TSH, CBC with differential, Testing Performed By: [facility] [address] [place] [address] CLIA#:[id number] Dr. Abbe Celeste, Book Editor Performed By: #### C 4125, C408, C215, C47, C400, C8 #### [facility] [address] [place] [address] ImmGrn # 0.0 K CUMM Normal 0.0-0.3 [facility] Comment on above: Order Comment: Items in this order include: Comprehensive Metabolic Panel, Lipid Panel, Free T4, PSA (Screening Medicare Only), TSH, CBC with differential, Testing Performed By: [facility] [address] [place] [address] CLIA#:[id number] [address]. Abbe Celeste, Book Editor Performed By: #### C 4125, C408, C215, C47, C400, C8 #### [facility] [address] [place] [address] ImmGrn % 0.6 % Normal 0.0-3.0 [facility] Comment on above: Order Comment: Items in this order include: Comprehensive Metabolic Panel, Lipid Panel, Free T4, PSA (Screening Medicare Only), TSH, CBC with differential, Testing Performed By: [facility] [address] [place] [address] CLIA#:[id number] [address] Abbe Celeste, Book Editor Performed By: #### C 4125, C408, C215, C47, C400, C8 #### [facility] [address] [place] [address] LYMPH # 2.7 K CUMM Normal 0.7-4.5 [facility] Comment on above: Order Comment: Items in this order include: Comprehensive Metabolic Panel, Lipid Panel, Free T4, PSA (Screening Medicare Only), TSH, CBC with differential, Testing Performed By: [facility] [address] [place] [address] CLIA#:[id number] Dr. Abbe Celeste, Book Editor Performed By: #### C 4125, C408, C215, C47, C400, C8 #### [facility] [address] [place] [address] Lymphocytes/100 WBC (Bld) 38.3 % Normal 14.0-46.0 [facility] Comment on above: Order Comment: Items in this order include: Comprehensive Metabolic Panel, Lipid Panel, Free T4, PSA (Screening Medicare Only), TSH, CBC with differential, Testing Performed By: [facility] [address] [place] [address] CLIA#:[id number] Dr. Abbe Celeste, Book Editor Performed By: #### C 4125, C408, C215, C47, C400, C8 #### [facility] [address] [place] [address] MCH (RBC) [Entitic mass] 37.6 pg High 27.0-31.0 [facility] Comment on above: Order Comment: Items in this order include: Comprehensive Metabolic Panel, Lipid Panel, Free T4, PSA (Screening Medicare Only), TSH, CBC with differential, Testing Performed By: [facility] [address] [place] [address] CLIA#:[id number] [address]. Abbe Celeste, Book Editor Performed By: #### C 4125, C408, C215, C47, C400, C8 #### [facility] [address] [place] [address] MCHC (RBC) [Mass/Vol] 34.9 g/dL Normal 32.0-36.0 [facility] Comment on above: Order Comment: Items in this order include: Comprehensive Metabolic Panel, Lipid Panel, Free T4, PSA (Screening Medicare Only), TSH, CBC with differential, Testing Performed By: [facility] [address] [place] [address] CLIA#:[id number] [address] Abbe Celeste, Book Editor Performed By: #### C 4125, C408, C215, C47, C400, C8 #### [facility] [address] [place] [address] MCV (RBC) [Entitic vol] 107.8 fL High 78.0-100.0 [facility] Comment on above: Order Comment: Items in this order include: Comprehensive Metabolic Panel, Lipid Panel, Free T4, PSA (Screening Medicare Only), TSH, CBC with differential, Testing Performed By: [facility] [address] [place] [address] CLIA#:[id number] Dr. Abbe Celeste, Book Editor Performed By: #### C 4125, C408, C215, C47, C400, C8 #### [facility] [address] [place] [address] MONO # 0.7 K CUMM Normal 0.1-1.0 [facility] Comment on above: Order Comment: Items in this order include: Comprehensive Metabolic Panel, Lipid Panel, Free T4, PSA (Screening Medicare Only), TSH, CBC with differential, Testing Performed By: [facility] [address] [place] [address] CLIA#:[id number] [address]. Abbe Celeste, Book Editor Performed By: #### C 4125, C408, C215, C47, C400, C8 #### [facility] [address] [place] [address] Monocytes/100 WBC (Bld) 9.6 % Normal 4.0-13.0 [facility] Comment on above: Order Comment: Items in this order include: Comprehensive Metabolic Panel, Lipid Panel, Free T4, PSA (Screening Medicare Only), TSH, CBC with differential, Testing Performed By: [facility] [address] [place] [address] CLIA#:[id number] [address] Abbe Celeste, Book Editor Performed By: #### C 4125, C408, C215, C47, C400, C8 #### [facility] [address] [place] [address] DANIEL # 2.9 K CUMM Normal 1.8-7.8 [facility] Comment on above: Order Comment: Items in this order include: Comprehensive Metabolic Panel, Lipid Panel, Free T4, PSA (Screening Medicare Only), TSH, CBC with differential, Testing Performed By: [facility] [address] [place] [address] CLIA#:[id number] [address] Abbe Celeste, Book Editor Performed By: #### C 4125, C408, C215, C47, C400, C8 #### [facility] [address] [place] [address] Neutrophils/100 WBC (Bld) 40.9 % Normal 40.0-74.0 [facility] Comment on above: Order Comment: Items in this order include: Comprehensive Metabolic Panel, Lipid Panel, Free T4, PSA (Screening Medicare Only), TSH, CBC with differential, Testing Performed By: [facility] [address] [place] [address] CLIA#:[id number] [address]. Abbe Celeste, Book Editor Performed By: #### C 4125, C408, C215, C47, C400, C8 #### [facility] [address] [place] [address] Platelet mean volume (Bld) [Entitic vol] 11.0 fL Normal 8.9-12.6 [facility] Comment on above: Order Comment: Items in this order include: Comprehensive Metabolic Panel, Lipid Panel, Free T4, PSA (Screening Medicare Only), TSH, CBC with differential, Testing Performed By: [facility] [address] [place] [address] CLIA#:[id number] [address] Abbe Celeste, Book Editor Performed By: #### C 4125, C408, C215, C47, C400, C8 #### [facility] [address] [place] [address] PLT 276 K CUMM Normal 130-400 [facility] Comment on above: Order Comment: Items in this order include: Comprehensive Metabolic Panel, Lipid Panel, Free T4, PSA (Screening Medicare Only), TSH, CBC with differential, Testing Performed By: [facility] [address] [place] [address] CLIA#:[id number] Dr. Abbe Celeste, Book Editor Performed By: #### C 4125, C408, C215, C47, C400, C8 #### [facility] [address] [place] [address] RBC 4.23 M CUMM Normal 4.20-5.80 [facility] Comment on above: Order Comment: Items in this order include: Comprehensive Metabolic Panel, Lipid Panel, Free T4, PSA (Screening Medicare Only), TSH, CBC with differential, Testing Performed By: [facility] [address] [place] [address] CLIA#:[id number] Dr. Abbe Celeste, Book Editor Performed By: #### C 4125, C408, C215, C47, C400, C8 #### [facility] [address] [place] [address] WBC 7.1 K CUMM Normal 3.8-10.6 [facility] Comment on above: Order Comment: Items in this order include: Comprehensive Metabolic Panel, Lipid Panel, Free T4, PSA (Screening Medicare Only), TSH, CBC with differential, Testing Performed By: [facility] [address] [place] [address] CLIA#:[id number] Dr. Abbe Celeste, Book Editor Performed By: #### C 4125, C408, C215, C47, C400, C8 #### [facility] [address] [place] [address] [place] [address] Comprehensive Metabolic Pane l (COPC)on 01-16-2023 Albumin [Mass/Vol] 4.5 g/dL Normal 3.2-4.8 [facility] Comment on above: Order Comment: Items in this order include: Comprehensive Metabolic Panel, Lipid Panel, Free T4, PSA (Screening Medicare Only), TSH, CBC with differential, Testing Performed By: [facility] [address] [place] [address] CLIA#:[id number] Dr. Abbe Celeste, Book Editor Performed By: #### C 4125, C408, C215, C47, C400, C8 #### [facility] [address] [place] [address] Albumin/Globulin [Mass ratio] 1.6 {ratio} Normal 1.3-2.1 [facility] Comment on above: Order Comment: Items in this order include: Comprehensive Metabolic Panel, Lipid Panel, Free T4, PSA (Screening Medicare Only), TSH, CBC with differential, Testing Performed By: [facility] [address] [place] [address] CLIA#:[id number] Dr. Abbe Celeste, Book Editor Performed By: #### C 4125, C408, C215, C47, C400, C8 #### [facility] [address] [place] [address] [place] [address] Alk Phos 82 U/L Normal 40-127 [facility] Comment on above: Order Comment: Items in this order include: Comprehensive Metabolic Panel, Lipid Panel, Free T4, PSA (Screening Medicare Only), TSH, CBC with differential, Testing Performed By: [facility] [address] [place] [address] CLIA#:[id number] Dr. Abbe Celeste, Book Editor Performed By: #### C 4125, C408, C215, C47, C400, C8 #### [facility] [address] [place] [address] ALT [Catalytic activity/Vol] 72 U/L High 10-49 [facility] Comment on above: Order Comment: Items in this order include: Comprehensive Metabolic Panel, Lipid Panel, Free T4, PSA (Screening Medicare Only), TSH, CBC with differential, Testing Performed By: [facility] [address] [place] [address] CLIA#:[id number] [address] Abbe Celeste, Book Editor Performed By: #### C 4125, C408, C215, C47, C400, C8 #### [facility] [address] [place] [address] AST [Catalytic activity/Vol] 63 U/L High <34 [facility] Comment on above: Order Comment: Items in this order include: Comprehensive Metabolic Panel, Lipid Panel, Free T4, PSA (Screening Medicare Only), TSH, CBC with differential, Testing Performed By: [facility] [address] [place] [address] CLIA#:[id number] [address] Abbe Celeste, Book Editor Performed By: #### C 4125, C408, C215, C47, C400, C8 #### [facility] [address] [place] [address] B/C Ratio 15.0 Ratio Normal 10.0-28.6 [facility] Comment on above: Order Comment: Items in this order include: Comprehensive Metabolic Panel, Lipid Panel, Free T4, PSA (Screening Medicare Only), TSH, CBC with differential, Testing Performed By: [facility] [address] [place] [address] CLIA#:[id number] [address] Abbe Celeste, Book Editor Performed By: #### C 4125, C408, C215, C47, C400, C8 #### [facility] [address] [place] [address] Bilirubin [Mass/Vol] 1.3 mg/dL High 0.3-1.2 [facility] Comment on above: Order Comment: Items in this order include: Comprehensive Metabolic Panel, Lipid Panel, Free T4, PSA (Screening Medicare Only), TSH, CBC with differential, Testing Performed By: [facility] [address] [place] [address] CLIA#:[id number] Dr. Abbe Celeste, Book Editor Performed By: #### C 4125, C408, C215, C47, C400, C8 #### [facility] [address] [place] [address] [place] [address] Calcium [Mass/Vol] 9.8 mg/dL Normal 8.3-10.6 [facility] Comment on above: Order Comment: Items in this order include: Comprehensive Metabolic Panel, Lipid Panel, Free T4, PSA (Screening Medicare Only), TSH, CBC with differential, Testing Performed By: [facility] [address] [place] [address] CLIA#:[id number] [address] Abbe Celeste, Book Editor Performed By: #### C 4125, C408, C215, C47, C400, C8 #### [facility] [address] [place] [address] Chloride [Moles/Vol] 103 mmol/L Normal 98-107 [facility] Comment on above: Order Comment: Items in this order include: Comprehensive Metabolic Panel, Lipid Panel, Free T4, PSA (Screening Medicare Only), TSH, CBC with differential, Testing Performed By: [facility] [address] [place] [address] CLIA#:[id number] [address] Abbe Celeste, Book Editor Performed By: #### C 4125, C408, C215, C47, C400, C8 #### [facility] [address] [place] [address] CO2 [Moles/Vol] 25 mmol/L Normal 20-31 [facility] Comment on above: Order Comment: Items in this order include: Comprehensive Metabolic Panel, Lipid Panel, Free T4, PSA (Screening Medicare Only), TSH, CBC with differential, Testing Performed By: [facility] [address] [place] [address] CLIA#:[id number] Dr. Abbe Celeste, Book Editor Performed By: #### C 4125, C408, C215, C47, C400, C8 #### [facility] [address] [place] [address] Creatinine [Mass/Vol] 0.8 mg/dL Normal 0.7-1.3 [facility] Comment on above: Order Comment: Items in this order include: Comprehensive Metabolic Panel, Lipid Panel, Free T4, PSA (Screening Medicare Only), TSH, CBC with differential, Testing Performed By: [facility] [address] [place] [address] CLIA#:[id number] [address]. Abbe Celeste, Book Editor Performed By: #### C 4125, C408, C215, C47, C400, C8 #### [facility] [address] [place] [address] GFRCKD 97 mL/min per 1.73 Normal >60 [facility] Comment on above: Order Comment: Items in this order include: Comprehensive Metabolic Panel, Lipid Panel, Free T4, PSA (Screening Medicare Only), TSH, CBC with differential, Testing Performed By: [facility] [address] [place] [address] CLIA#:[id number] Dr. Abbe Celeste, Book Editor Result Comment: The GFR estimate is not adjusted for race. Performed By: #### C 4125, C408, C215, C47, C400, C8 #### [facility] [address] [place] [address] Globulin (S) [Mass/Vol] 2.8 g/dL Normal [facility] Comment on above: Order Comment: Items in this order include: Comprehensive Metabolic Panel, Lipid Panel, Free T4, PSA (Screening Medicare Only), TSH, CBC with differential, Testing Performed By: [facility] [address] [place] [address] CLIA#:[id number] [address] Abbe Celeste, Book Editor Performed By: #### C 4125, C408, C215, C47, C400, C8 #### [facility] [address] [place] [address] Glucose [Mass/Vol] 101 mg/dL Normal 74-106 [facility] Comment on above: Order Comment: Items in this order include: Comprehensive Metabolic Panel, Lipid Panel, Free T4, PSA (Screening Medicare Only), TSH, CBC with differential, Testing Performed By: [facility] [address] [place] [address] CLIA#:[id number] Dr[address] Abbe Celeste, Book Editor Performed By: #### C 4125, C408, C215, C47, C400, C8 #### [facility] [place] [address] Potassium [Moles/Vol] 4.2 mmol/L Normal 3.5-5.1 [facility] Comment on above: Order Comment: Items in this order include: Comprehensive Metabolic Panel, Lipid Panel, Free T4, PSA (Screening Medicare Only), TSH, CBC with differential, Testing Performed By: [facility] [address] [place] [address] CLIA#:[id number] [address] Abbe Celeste, Book Editor Performed By: #### C 4125, C408, C215, C47, C400, C8 #### [facility] [address] [place] [address] Protein [Mass/Vol] 7.3 g/dL Normal 5.7-8.2 [facility] Comment on above: Order Comment: Items in this order include: Comprehensive Metabolic Panel, Lipid Panel, Free T4, PSA (Screening Medicare Only), TSH, CBC with differential, Testing Performed By: [facility] [address] [place] [address] CLIA#:[id number] Dr. Abbe Celeste, Book Editor Performed By: #### C 4125, C408, C215, C47, C400, C8 #### [facility] [address] [place] [address] [place] [address] Sodium [Moles/Vol] 138 mmol/L Normal 136-145 [facility] Comment on above: Order Comment: Items in this order include: Comprehensive Metabolic Panel, Lipid Panel, Free T4, PSA (Screening Medicare Only), TSH, CBC with differential, Testing Performed By: [facility] [address] [place] [address] CLIA#:[id number] [address] Abbe Celeste, Book Editor Performed By: #### C 4125, C408, C215, C47, C400, C8 #### [facility] [address] [place] [address] [place] [address] Urea nitrogen [Mass/Vol] 12 mg/dL Normal 9-23 [facility] Comment on above: Order Comment: Items in this order include: Comprehensive Metabolic Panel, Lipid Panel, Free T4, PSA (Screening Medicare Only), TSH, CBC with differential, Testing Performed By: [facility] [address] [place] [address] CLIA#:[id number] Dr. Abbe Celeste, Book Editor Performed By: #### C 4125, C408, C215, C47, C400, C8 #### [facility] [address] [place] [address] Free T4 (COPC)on 01-16-2023 Free T4 [Mass/Vol] 0.9 ng/dL Normal 0.9-1.8 [facility] Comment on above: Performed By: #### C 4125, C408, C215, C47, C400, C8 #### [facility] [address] [place] [address] Lipid Panel (COPC)on 023 Cholesterol [Mass/Vol] 145 mg/dL Normal <200 [facility] Comment on above: Result Comment: Low- risk levels (desirable) < 200 mg/dL Moderate-risk levels (borderline) 200 to 239 mg/dL High-risk levels > or = 240 mg/dL Performed By: #### C 4125, C408, C215, C47, C400, C8 #### [facility] [address] [place] [address] Cholesterol in HDL [Mass/Vol] 46 mg/dL Low >60 [facility] Comment on above: Performed By: #### C 4125, C408, C215, C47, C400, C8 #### [facility] [address] [place] [address] Cholesterol in LDL [Mass/Vol] 88 mg/dL Normal <130 [facility] Comment on above: Performed By: #### C 4125, C408, C215, C47, C400, C8 #### [facility] [address] [place] [address] Cholesterol.total/Ch olesterol in HDL [Mass ratio] 3.2 {ratio} Normal <4.0 [facility] Comment on above: Performed By: #### C 4125, C408, C215, C47, C400, C8 #### [facility] [address] [place] [address] [place] [address] Non-HDL Chol 99 Normal LDL Goal + 30 [facility] Comment on above: Result Comment: LDL and Non-HDL goal dependent upon individual risk Performed By: #### C 4125, C408, C215, C47, C400, C8 #### [facility] [address] [place] [address] Triglyceride [Mass/Vol] 55 mg/dL Normal <150 [facility] Comment on above: Performed By: #### C 4125, C408, C215, C47, C400, C8 #### [facility] [address] [place] [address] VLDL-Calc 11 mg/dl Normal <30 [facility] Comment on above: Performed By: #### Josue 4125, C408, C215, C47, C400, C8 #### [facility] [address] [place] [address] PSA (Screening Medicare Only ) ([facility])on 01-16-2023 SCRPSA 0.49 ng/mL Normal 0.00-4.00 [facility] Comment on above: Performed By: #### Josue 4125, C408, C215, C47, C400, C8 #### [facility] [address] [place] [address] TSH ([facility])on 01-16-2023 TSH 2.462 MIU/mL Normal 0.550-4.780 [facility] Comment on above: Performed By: #### Josue 4125, C408, C215, C47, C400, C8 #### [facility] [address] [place] [place] [address] CT LUNG SCREENINGon 11-18-[address] LUNG [...] Self Edit Transcribed Date: 11/18/2022 14:11 Normal [facility] Basic Metabolic Panel [facility] 07-12-2021 Calcium [Mass/Vol] 9.5 mg/dL Normal 8.9-10.3 [facility] Comment on above: Performed By: #### C D:[id number] #### [facility] Chloride [Moles/Vol] 102 mmol/L Normal 98-107 [facility] Comment on above: Performed By: #### C D:[id number] #### [facility] CARE CO2 [Moles/Vol] 25 mmol/L Normal 22-32 [facility] Comment on above: Performed By: #### C D:[id number] #### [facility] Creatinine [Mass/Vol] 0.7 mg/dL Normal 0.6-1.3 [facility] Comment on above: Performed By: #### C D:[id number] #### [facility] GFR/1.73 sq M.predicted (S/P/Bld) [Vol rate/Area] mL/min Normal [facility] Comment on above: Performed By: #### C D:[id number] #### [facility] Glucose [Mass/Vol] 185 mg/dL High 70-99 [facility] Comment on above: Performed By: #### C D:[id number] #### [facility]INT [facility] CARE Potassium post dialysis [Moles/Vol] 4.0 mMol/L Normal 3.6-5.1 [facility] Comment on above: Performed By: #### C [id number] #### [facility] C[facility] Sodium [Moles/Vol] 139 mmol/L Normal 136-145 [facility] Comment on above: Performed By: #### C D:[id number] #### [facility]INT [facility] C[facility] Urea nitrogen [Mass/Vol] 8 mg/dL Normal 8-20 [facility] Comment on above: Performed By: #### C D:[id number] #### [facility] Blood Gas POCT VBG Blanquita ohara (Uploaded)on 07-12-2021 Calcium.ionized (Bld) [Mass/Vol] 1.20 mMol/L Normal 1.12-1.32 [facility] Comment on above: Performed By: #### 2 4339-4x4 #### POINT OF CARE Carboxyhemoglobin (Bld) [Mass fraction] 2.9 % Normal [facility] Comment on above: Result Comment: NON SMOKERS <1.5% SMOKERS 1.5 - 9.0% Performed By: #### 2 4339-4x4 #### POINT OF CARE Chemistry studies (set) 21.0 % Normal [facility] Comment on above: Performed By: #### 2 4339-4x4 #### POINT OF CARE Chloride [Moles/Vol] 105 mmol/L Normal 98-106 [facility] Comment on above: Performed By: #### 2 4339-4x4 #### POINT OF CARE Glucose [Mass/Vol] 182 mg/dL High 70-110 [facility] Comment on above: Performed By: #### 2 4339-4x4 #### POINT OF CARE Hemoglobin (Bld) [Mass/Vol] 16.4 g/dL Normal 13.5-17.5 [facility] Comment on above: Performed By: #### 2 4339-4x4 #### POINT OF CARE Lactate [Moles/Vol] 1.1 mmol/L Normal 0.5-2.2 [facility] Comment on above: Performed By: #### 2 4339-4x4 #### POINT OF CARE Methemoglobin (Bld) [Mass fraction] % Normal 0.2-0.6 [facility] Comment on above: Performed By: #### 2 4339-4x4 #### POINT OF CARE Oxygen (BldCoV) [Partial pressure] 52 mmHg High 25-40 [facility] Comment on above: Performed By: #### 2 4339-4x4 #### POINT OF CARE Oxyhemoglobin (Bld) [Mass fraction] 86.9 % High 40.0-70.0 [facility] Comment on above: Performed By: #### 2 4339-4x4 #### POINT OF CARE pCO2 Venous POCT 38 mmHg Low 41-51 [facility] Comment on above: Performed By: #### 2 4339-4x4 #### POINT OF CARE pH Venous POCT 7.43 High 7.31-7.41 [facility] Comment on above: Performed By: #### 2 4339-4x4 #### POINT OF CARE Potassium post dialysis [Moles/Vol] 3.8 mEq/L Normal 3.5-5.0 [facility] Comment on above: Performed By: #### 2 4339-4x4 #### POINT OF CARE SaO2% (BldCoV) [Mass fraction] 90.0 % High 40.0-70.0 [facility] Comment on above: Performed By: #### 2 4339-4x4 #### POINT OF CARE Sodium [Moles/Vol] 140 mmol/L Normal 136-146 [facility] Comment on above: Performed By: #### 2 4339-4x4 #### POINT OF CARE CBC POCTon 07-12-2021 Erythrocyte distribution width (RBC) [Entitic vol] 13.5 % Normal 11.0-16.3 [facility] Comment on above: Performed By: #### C D:[id number] #### [facility] Hematocrit (BldA) [Volume fraction] 47.1 % Normal 31.1-57.4 [facility] Comment on above: Performed By: #### C D:[id number] #### [facility]INT [facility] CARE Hemoglobin (Bld) [Mass/Vol] 16.7 g/dL Normal 10.5-17.8 [facility] Comment on above: Performed By: #### C D:[id number] #### [facility] C[facility] Lymphocytes (Bld) [#/Vol] 1.7 thou/mcL Normal 1.0-4.8 [facility] Comment on above: Performed By: #### C D:[id number] #### [facility] POINT [facility] CARE Lymphocytes/100 WBC (Bld) 16.4 % Low 25.0-57.0 [facility] Comment on above: Performed By: #### C D:[id number] #### [facility] POINT OF CARE MCH (RBC) [Entitic mass] 37.3 Picograms High 27.4-35.7 [facility] Comment on above: Performed By: #### C D:[id number] #### [facility] POINT OF CARE MCHC (RBC) [Mass/Vol] 35.5 g/dL Normal 32.7-36.7 [facility] Comment on above: Performed By: #### C D:[id number] #### [facility] POINT OF CARE MCV (RBC) [Entitic vol] 105.1 fL High 82.5-102.0 [facility] Comment on above: Performed By: #### C D:[id number] #### [facility] POINT [facility] CARE Neutrophils (Bld) [#/Vol] 8.0 thou/mcL High 1.8-7.7 [facility] Comment on above: Performed By: #### C D:[id number] #### [facility] POINT OF CARE Neutrophils/100 WBC (Bld) 77.9 % High 37.0-75.0 [facility] Comment on above: Performed By: #### C D:[id number] #### [facility] POINT OF CARE Platelet mean volume (Bld) [Entitic vol] 10.4 fL Normal 8.5-13.5 [facility] Comment on above: Performed By: #### C D:[id number] #### [facility] POINT OF CARE Platelets (Bld) [#/Vol] 267 thou/mcL Normal 166-400 [facility] Comment on above: Performed By: #### C D:[id number] #### [facility] POINT OF CARE RBC (Bld) [#/Vol] 4.48 million/mcL Normal 3.30-6.06 [facility] Comment on above: Performed By: #### C D:[id number] #### [facility] POINT OF CARE WBC (Bld) [#/Vol] 10.3 thou/mcL Normal 5.2-17.1 [facility] Comment on above: Performed By: #### C D:[id number] #### [facility] POINT OF CARE WBC other (Bld) [#/Vol] 0.6 thou/mcL Normal 0.1-1.3 [facility] Comment on above: Performed By: #### C D:[id number] #### [facility] POINT OF CARE WBC other/100 WBC (Bld) 5.7 % Normal 1.2-11.4 [facility] Comment on above: Performed By: #### C D:[id number] #### [facility] Coronavirus (COVID-19/SARS-C oV-2) POCTon 07-12-2021 SARS-CoV-2 (COVID-19) RdRp gene RANDY+probe Ql (Resp) Not detected Normal [facility] Comment on above: Result Comment: This test was performed via the [employer] Mobile [employer] NOW COVID-19 assay and has been authorized by FDA under an Emergency Use Authorization (EUA). The assay is validated for nasopharyngeal (RADIOLOGY AIDE), nasal, and oropharyngeal (OP) direct swabs. The [...] 4534-5 #### [facility] POINT [facility] C[facility] D-Dimer [facility] 07-12-2021 Fibrin D-dimer Qn (PPP) 339 mcg/mL Normal 0-400 [facility] Comment on above: Performed By: #### C D:[id number] #### [facility]INT [facility] ED Pat Eduon 07-12-2021 ED Pat [facility] [address], [place] [address] [phone] Emergency Department Discharge Instructions ALEJANDRO MARADIAGA, Please provide this information to your Primary Care/Specialist Name: ALEJANDRO MARADIAGA Current Date : 07/12/2021 09:45:39 : 1955 Primary Care Physician: Elle Cortes MD Diagnosis : COPD exacerbation; Pneumonia Follow-Up Instructions: ALEJANDRO MARADIAGA has been given these follow-up instructions: FOLLOW-UP APPOINTMENTS: Provider: Specialty: Address: Date: Elle Cortes MD Internal Medicine [facility] [address] [phone] (1) Comment: Call for an Appointment Laboratory [...] Servicios de Emergencia Name ALEJANDRO MARADIAGA MRN ([facility])-[id number] PLEASE READ THE FOLLOWING REGARDING YOUR MEDICATIONS [...] doses are changed, or new medications (including kxpz-[id number] products) are added. If you have any [...] your F (more content not included)... Normal [facility] Hepatic Function Panel POCTo n 07-12-2021 Albumin [Mass/Vol] 4.3 g/dL Normal 3.5-4.8 [facility] Comment on above: Performed By: #### C D:[id number] #### [facility]INT [facility] C[facility] ALP (S/P/Bld) [Catalytic activity/Vol] 94 Units/L High 32-91 [facility] Comment on above: Performed By: #### C D:[id number] #### [facility] C[facility] ALT/Aspartate aminotransferase [Catalytic ratio] 88 Units/L High 7-52 [facility] Comment on above: Performed By: #### C D:[id number] #### [facility] POINT OF CARE Amylase [Catalytic activity/Vol] 38 Units/L Normal 26-100 [facility] Comment on above: Performed By: #### C D:[id number] #### [facility]INT [facility] C[facility] AST [Catalytic activity/Vol] 70 Units/L High 15-41 [facility] Comment on above: Performed By: #### C D:[id number] #### [facility] POINT OF CARE Bilirubin [Mass/Vol] 1.2 mg/dL Normal 0.3-1.2 [facility] Comment on above: Performed By: #### C D:[id number] #### [facility] POINT OF CARE Gamma glutamyl transferase [Catalytic activity/Vol] 293 Units/L High 7-50 [facility] Comment on above: Performed By: #### C D:[id number] #### [facility] POINT [facility] CARE Protein [Mass/Vol] 8.0 g/dL High 6.1-7.9 [facility] Comment on above: Performed By: #### C D:[id number] #### [facility] POINT OF CARE Troponin I POCT [facility] Troponin I.cardiac [Mass/Vol] 0.00 ng/mL Normal <0.08 [facility] Comment on above: Performed By: #### [...] Mild right midlung opacity suspicious for infiltrate. [facility] thanks you for the opportunity to care for your patient. Workstation ID: [id number] - [id number] FINAL REPORT Dictated By: Kodi Mohan MD 07/12/2021 07:12 Assigned Physician: Kodi Mohan MD Reviewed and Electronically Signed By: Kodi Mohan MD 07/12/2021 07:14 Transcribed by: [facility] 07/12/2021 07:12 Technologist: ERIBERTO Normal [facility] XR Chest 2 Viewson XR Chest [...] of emphysema. IMPRESSION: No acute cardiopulmonary disease [facility] thanks you for the opportunity to care for your patient. Workstation ID: [id number] - [id number] FINAL REPORT Dictated By: Lisa Parrish MD 05/08/2021 08:29 Assigned Physician: Lisa Parrish MD Reviewed and Electronically Signed By: Lisa Parrish MD 05/08/2021 08:29 Transcribed by: [facility] 05/08/2021 08:29 Technologist: ZAID Normal [facility] Vital Signs Date Time Vital Sign Value Performing Clinician Facility 10-24-2023 10:30-0500 Body height 175.26 cm Shanell Craig Other [email or web address] Other 10-24-2023 10:30-0500 Body mass index (BMI) [Ratio] 23.03 kg/m2 Shanell Craig Other [email or web address] Other 10-24-2023 10:30-0500 Body weight 70.76 kg Shanell Craig Other [email or web address] Other 10-24-2023 10:30-0500 Diastolic blood pressure 71 mm[Hg] Shanell Craig Other [email or web address] Other 10-24-2023 10:30-0500 SaO2% (BldA) [Mass fraction] 97 % Shanell Craig Other [email or web address] Other 10-24-2023 10:30-0500 Systolic blood pressure 118 mm[Hg] Shanell Craig Other [email or web address] Other 09-01-2023 08:30-0400 Body height 175.26 cm Irma Ontiveros Other [email or web address] Other 09-01-2023 08:30-0400 Body mass index (BMI) [Ratio] 24.81 kg/m2 Kamal Chaban Other [email or web address] Other 09-01-2023 08:30-0400 Body temperature 97.2 [degF] Kamal Chaban Other [email or web address] Other 09-01-2023 08:30-0400 Body weight 76.2 kg Kamal Chaban Other [email or web address] Other 09-01-2023 08:30-0400 Diastolic blood pressure 82 mm[Hg] Kamal Rosieban Other [email or web address] Other 09-01-2023 08:30-0400 Respiratory rate 20 /min Irma Ontiveros Other [email or web address] Other 09-01-2023 08:30-0400 SaO2% (BldA) [Mass fraction] 98 % Irma Ontiveros Other [email or web address] Other 09-01-2023 08:30-0400 Systolic blood pressure 120 mm[Hg] Irma Ontiveros Other [email or web address] Other 06-20-2023 08:30-0400 Body height 172.72 cm Shanell Craig Other [email or web address] Other 06-20-2023 08:30-0400 Body mass index (BMI) [Ratio] 27.06 kg/m2 Shanell Craig Other [email or web address] Other 06-20-2023 08:30-0400 Body weight 80.74 kg Shanell Craig Other [email or web address] Other 06-20-2023 08:30-0400 Diastolic blood pressure 72 mm[Hg] Shanell Craig Other [email or web address] Other 06-20-2023 08:30-0400 Systolic blood pressure 133 mm[Hg] Shanell Craig Other [email or web address] Other 11-14-2022 10:36-0500 Body height 180.3 cm Rhonda Kaiser MD Work Phone: [employer] 11-14-2022 10:36-0500 Body mass index (BMI) [Ratio] 24.23 kg/m2 Rhonda Kaiser MD Work Phone: [employer] 11-14-2022 10:36-0500 Body temperature 97.59 [degF] Rhodna Kaiser MD Work Phone: [employer] 11-14-2022 10:36-0500 Body weight 78.79 kg Rhonda Kaiser MD Work Phone: [employer] 11-14-2022 10:36-0500 Diastolic blood pressure 80 mm[Hg] Rhonda Kaiser MD Work Phone: [employer] 11-14-2022 10:36-0500 Heart rate 75 /min Rhonda Kaiser MD Work Phone: [employer] 11-14-2022 10:36-0500 Respiratory rate 16 /min Rhonda Kaiser MD Work Phone: [employer] 11-14-2022 10:36-0500 SaO2% (BldA) [Mass fraction] 96 % Rhonda Kaiser MD Work Phone: [employer] Comment on above: ra/rest 11-14-2022 10:36-0500 Systolic blood pressure 168 mm[Hg] Rhonda Kaiser MD Work Phone: [employer] Encounters Encounter Date Encounter Type Care Provider Facility Start: 12-16-2023 End: 12-16-2023 ambulatory ABEL REGINALD [facility] Start: 12-01-2023 End: 12-01-2023 ambulatory Tima Osorio Other [facility] [employer] Other Start: 12-01-2023 Telephone encounter Tima barrientos [facility] Start: 11-27-2023 End: 11-27-2023 ambulatory Shanell Craig Facility:[facility] Start: 11-04-2023 End: 11-04-2023 ambulatory Shanell Craig Other [facility] [employer] Other Start: 11-04-2023 Telephone encounter Shanell Craig [facility] Start: 10-24-2023 End: 10-24-2023 ambulatory Shanell Craig Other [email or web address] Other Start: 10-24-2023 Office outpatient visit 25 minutes Shanell Craig [facility] Start: 10-24-2023 Telephone encounter Shanell Craig [facility] Start: 10-22-2023 Telephone encounter Irma Velezricardo [facility] Start: 10-22-2023 End: 10-22-2023 ambulatory LALIT BULMARO [email or web address] Other Start: 10-18-2023 Evaluation and management of inpatient [facility] Start: 10-17-2023 Evaluation and management of inpatient [facility] Start: 10-17-2023 Evaluation and management of inpatient [facility] Start: 10-16-2023 Evaluation and management of inpatient [facility] Start: 10-16-2023 Evaluation and management of inpatient [facility] Start: 10-15-2023 Evaluation and management of inpatient ELVIRA Rain ARNOLDMELISSA [facility] Start: 10-15-2023 End: 10-18-2023 Evaluation and management of inpatient SHAIKH FAYTHOMAS [facility] Start: 09-01-2023 End: 09-01-2023 ambulatory Irma Ontiveros Other [email or web address] Other Start: 09-01-2023 Office outpatient ne w 45 minutes Kamdarinel Velezricardo [facility] Start: 08-25-2023 End: 08-25-2023 ambulatory Shanell Craig Other [email or web address] Other Start: 08-25-2023 Telephone encounter Shanell Craig [facility] Start: 07-08-2023 End: 07-08-2023 ambulatory Shanell Craig Other [email or web address] Other Start: 07-08-2023 Telephone encounter Shanell Craig [facility] Start: 06-20-2023 End: 06-20-2023 ambulatory Shanell Craig Other [facility] [employer] Other Start: 06-20-2023 Office outpatient ne w 30 minutes Shanell Craig [facility] Start: 03-03-2023 ambulatory AVA GODFREY [facility] Start: 11-25-2022 End: 11-25-2022 ambulatory JENNI NOBLET JENNI [facility] Start: 11-25-2022 End: 11-25-2022 ambulatory Jenni Noblet PT [facility] Comment on above: Spondylosis without myelopathy or radiculopathy, cervical region (Primary Dx); Neck pain; Cervicalgia; Chronic left shoulder pain; Left shoulder pain, unspecified chronicity Start: 11-25-2022 End: 11-25-2022 Treatment Jenni Noblet PT [facility] Start: 11-20-2022 End: 11-20-2022 ambulatory Jenni Noblet PT [facility] Comment on above: Spondylosis without myelopathy or radiculopathy, cervical region (Primary Dx); Neck pain; Cervicalgia; Chronic left shoulder pain; Left shoulder pain, unspecified chronicity Start: 11-20-2022 End: 11-20-2022 Treatment Jenni Noblet PT [facility] Start: 11-18-2022 End: 11-18-2022 ambulatory Jenni Noblet PT [facility] [place] Comment on above: Spondylosis without myelopathy or radiculopathy, cervical region (Primary Dx); Neck pain; Cervicalgia; Chronic left shoulder pain; Left shoulder pain, unspecified chronicity Start: 11-18-2022 End: 11-18-2022 Treatment Jenni Noblet PT [facility] Start: 11-15-2022 Refill Sheila Ace MA [facility] Start: 11-15-2022 Refill Sheila Ace MA [facility] Start: 11-14-2022 End: 11-14-2022 ambulatory JENNI NOBLET JENNI [facility] Start: 11-14-2022 End: 11-14-2022 ambulatory Jenni Noblet PT [facility] Comment on above: Spondylosis without myelopathy or radiculopathy, cervical region (Primary Dx); Neck pain; Cervicalgia; Chronic left shoulder pain; Left shoulder pain, unspecified chronicity Start: 11-14-2022 End: 11-14-2022 Treatment Jenni Noblet PT [facility] Start: 11-14-2022 End: 11-14-2022 ambulatory RHONDA KAISER [facility] [place] Start: 11-14-2022 End: 11-14-2022 Office outpatient new 45 minutes Rhonda Kaiser MD Work Phone: [facility] [place] Comment on above: Nicotine dependence, uncomplicated, unspecified nicotine product type (Primary Dx); Chronic obstructive pulmonary disease, unspecified COPD type ([facility]) Start: 11-14-2022 End: 11-14-2022 Patient encounter procedure Rhonda Kaiser MD Work Phone: [facility] [place] Start: 11-12-2022 End: 11-12-2022 ambulatory Jenni Noblet PT [facility] Comment on above: Spondylosis without myelopathy or radiculopathy, cervical region (Primary Dx); Neck pain; Cervicalgia; Chronic left shoulder pain; Left shoulder pain, unspecified chronicity Start: 11-12-2022 End: 11-12-2022 Treatment Jenni Noblet PT [facility] Start: 11-05-2022 End: 11-05-2022 ambulatory JENNI NOBLET JENNI [facility] [place] Start: 11-05-2022 End: 11-05-2022 ambulatory Jenni Noblet PT [facility] Comment on above: Spondylosis without myelopathy or radiculopathy, cervical region (Primary Dx); Neck pain; Cervicalgia; Chronic left shoulder pain; Left shoulder pain, unspecified chronicity Start: 11-05-2022 End: 11-05-2022 Treatment Jenni Noblet PT [facility] Start: 10-30-2022 End: 10-30-2022 ambulatory JENNI REINA DEVISY [facility] [place] Start: 10-30-2022 End: 10-30-2022 ambulatory Jenni Noblet PT [facility] Comment on above: Spondylosis without myelopathy or radiculopathy, cervical region (Primary Dx); Neck pain Start: 10-30-2022 End: 10-30-2022 Evaluation Jenni Huang PT [facility] Start: 02-06-2022 End: 02-06-2022 ambulatory TAGGE KALIE TAGGE KALIE~[id number] [facility] Start: 02-06-2022 End: 02-06-2022 ambulatory Kalie Tagge PT [facility] Comment on above: Cervicalgia (Primary Dx) Start: 02-06-2022 End: 02-06-2022 Treatment Kalie Tagge PT [facility] Start: 02-04-2022 End: 02-04-2022 ambulatory STORM INMAN [facility] [place] Start: 01-28-2022 End: 01-28-2022 ambulatory STORM INMAN [facility] [place] Start: 01-24-2022 End: 01-24-2022 ambulatory TAGGE KALIE TAGGE KALIE~[id number] [facility] Plan of Treatment Date Care Activity Detail Author Start: 10-31-2026 Lipid panel Cholesterol Nh bassam (Lipid Panel) [facility] Start: 11-18-2023 End: 11-18-2023 Patient encounter procedure 11/18/2023 Appointment Radiology [facility] Start: 11-28-2022 End: 11-28-2022 ambulatory 11/28/2022 Treatment Physical Therapy Jenni Huang, PT [facility] Start: 11-28-2022 End: 11-28-2022 ambulatory 11/28/2022 Treatment Physical Therapy Jenni Huang, PT [facility] Start: 11-25-2022 End: 11-25-2022 ambulatory 11/25/2022 Treatment Physical Therapy Jenni Huang, PT [facility] Start: 11-25-2022 End: 11-25-2022 ambulatory 11/25/2022 Treatment Physical Therapy Jenni Huang, PT [facility] Start: 11-20-2022 End: 11-20-2022 ambulatory 11/20/2022 Treatment Physical Therapy Jenni Huang, PT [facility] [place] Start: 11-18-2022 End: 11-18-2022 Patient encounter procedure 11/18/2022 Appointment Radiology [facility] Start: 11-18-2022 End: 11-18-2022 ambulatory 11/18/2022 Treatment Physical Therapy Jenni Huang, PT [facility] [place] Start: 11-14-2022 End: 11-14-[address] Lung Screening Imaging Routine Nicotine dependence, uncomplicated, unspecified nicotine product type Expected: 11/14/2022, Expires: 11/14/2023 [employer] Phone: Comment on above: Expected: 11/14/2022 , Expires: 11/14/2023 Start: 11-14-2022 End: 11-14-2022 ambulatory 11/14/2022 Treatment Physical Therapy Jenni Huang, PT [facility] [place] Start: 11-14-2022 End: 11-14-2022 Patient encounter procedure 11/14/2022 Office Visit Pulmonology Rhonda Kaiser MD [address] [place] [address] [facility] [place] Start: 11-12-2022 End: 11-12-2022 ambulatory 11/12/2022 Treatment Physical Therapy Jenni Huang, PT [facility] Start: 11-05-2022 End: 11-05-2022 ambulatory 11/05/2022 Treatment Physical Therapy Jenni Huang, PT [facility] [place] Start: 10-31-2022 Hypertension/CHF/CAD Annual BMP Blood Test Hypertension/CHF/CAD Annual BMP Blood Test [facility] Start: 10-31-2022 Screening for malign ant neoplasm of colon Colorectal Cancer Screening: Stool Based Tests (FOBT/FIT) [facility] Start: 12-20-2021 COVID-19 Vaccine (4 - Booster for Moderna series) COVID-19 Vaccine (4 - Booster for Moderna series) [facility] Start: 2020 Falls Risk Assessment Falls Risk Ass essment [facility] Start: 11-25-2019 Abdominal aortic aneurysm screening Abdominal Aortic Aneurysm (AAA) Screen [facility] Start: 11-25-2019 Adolescent depressio n screening assessment Depression Screening [facility] Start: 11-25-2019 Hepatitis C screening Hepatitis C Sc reening [facility] Start: 11-25-2019 Medicare Annual Wellness Visit Medicare Annual Wellness Visit [facility] Start: 11-25-2019 Social Influencers o f Health Screening Social Influencers of Health Screening [facility] Start: 2005 Zoster Vaccines (1 o f 2) Zoster Vaccines (1 of 2) [facility] Start: 1974 DTaP,Tdap,and Td Vaccines (1 - Tdap) DTaP,Tdap,and Td Vaccines (1 - Tdap) [facility] Start: 1956 Hepatitis A Vaccines (1 of 2 - Risk 2-dose series) Hepatitis A Vaccines (1 of 2 - Risk 2-dose series) [facility] Payers Date Payer Category Payer Self-pay 2023 Medicare [id number] 2022 Medicare [id number] 2020 Medicare MEDICARE MEDICAR E PART A & B [id number] 2020-Present [address] [place] [address] Medicare [id number] 2020 Medicare [id number] 2020 Medicare [id number] 2014 Private Health Insurance AETNA D OMESTIC AETNA DOMESTIC [id number] 2014-Present [address] [address] [place] [address] [id number] 2014 Private Health Insurance AETNA D OMESTIC AETNA DOMESTIC [id number] 2014-Present [address] [place] [address] [id number] 2014 Private Health Insurance [id number] 1955 Unknown [id number] 143 1955 Unknown [id number] 2.840.1.257258.3.579.2.1 143 1955 Unknown [id number] 2.840.1.777388.3.579.2.1 143 1955 Unknown [id number] 2.16.840.1.232781.3.579.2.1 143 1955 Unknown [id number] 2.16840.1.524424.3.579.2.1 143 1955 Unknown [id number] 2.16840.1.955841.3.579.2.1 143 1955 Unknown [id number] 2.16.840.1.276000.3.579.2.1 143 1955 Unknown [id number] 2.16.840.1.763437.3.579.2.1 143 1955 Unknown [id number] 2.16.840.1.769972.3.579.2.1 143 1955 Unknown [id number] 2.16840.1.112333.3.579.2.1 143 1955 Unknown [id number] 2.16.840.1.148256.3.579.2.1 143 1955 Unknown [id number] 2.16.840.1.772550.3.579.2.1 143 1955 Unknown [id number] 2.16.840.1.698212.3.579.2.1 143 1955 Unknown [id number] 2.16.840.1.281032.3.579.2.1 143 Unknown [id number] 2.16.840.1.418927.3.579.2.5 31 Social History Date Type Detail Facility Tobacco smoking stat [facility] Tobacco smoking consumption unknown [facility] Start: 1955 Sex Assigned At Not on file [facility] Start: 10-19-2022 End: 11-18-2022 Exposure to SARS-CoV-2 (event) Not sure [facility] [employer] Start: 11-14-2022 Tobacco smoking status [facility] Ex-smoker [facility] History of tobacco use Current smoker [facility] History of tobacco use Cigarette Smoker T [facility] Start: 11-14-2022 Cigarettes smoked current (pack per day) - Reported 0.5 [employer] Sex Assigned At Sex Assigned At [facility] [email or web address] Other Clinical Notes 08-29-2020 to 12-16-2023 Note Date & Type Note Facility 12-16-2023 Note [facility] Electrophysiology Consult Note Reason for visit: Afib HPI: Alejandro Maradiaga is a 68 y.o. year old with past medical history of atrial flutter with rapid ventricular rate with associated systolic heart failure. Examination of his evaluation of cardiomyopathy he underwent a cardiac cath and there was no significant CAD to explain that subsequently he underwent TESS with cardioversion. He has felt better since then Patient here to discuss possible ablation. Denies chest pain, palpitations, lightheadedness/syncope, and bleeding on Eliquis. Goes to cardiac rehab at [facility] a few times a week. Had BMP/MG drawn yesterday. C/o fatigue and weakness. Urinating a lot during the night. PMH: Past Medical History: Diagnosis Date Abnormal ECG Arrhythmia Atrial fibrillation (CMS/HCC) CHF (congestive heart failure) (CMS/HCC) PSH: Past Surgical History: Procedure Laterality Date ANKLE SURGERY CARDIAC CATHETERIZATION CARDIOVERSION NECK SURGERY SH: Social Determinants of Health Tobacco Use: High Risk (10/22/2023) Patient History Smoking Tobacco Use: Every Day Smokeless Tobacco Use: Never Passive Exposure: Not on file Alcohol Use: Not on file Financial Resource Strain: Low Risk (10/15/2023) Overall Financial Resource Strain (CARDIA) Difficulty of Paying Living Expenses: Not hard at all Food Insecurity: Unknown (10/15/2023) Hunger Vital Sign Worried About Running Out of Food in the Last Year: Never true Ran Out of Food in the Last Year: Not on file Transportation Needs: Unknown (10/15/2023) PRAPARE - Transportation Lack of Transportation (Medical): No Lack of Transportation (Non-Medical): Not on file Physical Activity: Not on file Stress: Not on file Social Connections: Not on file Intimate Partner Violence: Not on file (10/15/2023) Depression: Not on file Housing Stability: Unknown (10/15/2023) Housing Stability Vital Sign Unable to Pay for Housing in the Last Year: Not on file Number of Places Lived in the Last Year: Not on file Unstable Housing in the Last Year: No Utilities: Not on file Allergies: Allergies Allergen Reactions Adenosine Anaphylaxis Latex Shortness of breath Weight: 73kg Visit Vitals BP 113/68 (BP Location: Right arm, Patient Position: Sitting) Pulse 78 Ht 1.803 m (5' 11 ) Wt 73 kg (161 lb) SpO2 97% BMI 22.45 kg/m??? Smoking Status Every Day BSA 1.91 m??? Meds: Current Outpatient Medications on File Prior to Visit Medication Sig Dispense Refill albuterol 90 mcg/actuation inhaler Inhale 1 puff in the morning. apixaban (Eliquis) 5 mg tablet Take 1 tablet (5 mg) by mouth in the morning and at bedtime. 180 tablet 3 aspirin 81 mg EC tablet Take 1 tablet (81 mg) by mouth in the morning. 90 tablet 3 atorvastatin (Lipitor) 10 mg tablet Take 10 mg by mouth in the morning. dapagliflozin propanediol (Farxiga) 10 mg Take 1 tablet (10 mg) by mouth in the morning. 90 tablet 3 frncuzccnia-safhdzofu-ftdmqsza 200-62.5-25 mcg blister with device Inhale in the morning. ipratropium-albuteroL (Duo-Neb) 0.5-2.5 mg/3 mL nebulizer solution Take 3 mL by nebulization in the morning and at bedtime. 2.5mg base lisinopril 5 mg tablet Take 1 tablet (5 mg) by mouth in the morning. 90 tablet 3 metoprolol succinate XL (Toprol-XL) 25 mg 24 hr tablet Take 1 tablet (25 mg) by mouth in the morning. Do not crush or chew. 90 tablet 3 montelukast (Singulair) 10 mg tablet Take 10 mg by mouth at bedtime. spironolactone (Aldactone) 25 mg tablet Take 1 tablet (25 mg) by mouth in the morning. 90 tablet 3 nicotine (Nicoderm CQ) 14 mg/[address] 1 patch on the skin 1 (one) time each day at the same time. Apply 14mg patch daily x6 weeks then 7mg patch daily x 2 weeks; remove old patch before applying new patch; can repeat if needed 45 patch 3 nicotine (Nicoderm CQ) 7 mg/[address] 1 patch on the skin 1 (one) time each day at the same time for 14 days. Apply 14mg patch daily x6 weeks then 7mg patch daily x 2 weeks; remove old patch before applying new patch; can repeat if needed 14 patch 3 No current facility-administered medications on file prior to visit. ROS: Review of Systems Constitutional: Positive for malaise/fatigue. Cardiovascular: Positive for dyspnea on exertion. Musculoskeletal: Positive for muscle weakness. Gastrointestinal: Positive for diarrhea. Neurological: Positive for weakness. All other systems reviewed and are negative. Physical Exam: Constitutional General Appearance: well-nourished, well-developed, appears stated age Level of Distress: comfortable Psychiatric Mental Status: alert, normal affect Orientation: oriented to time, place, and person Insight: good judgement Eyes Lids and Conjunctivae: non-injected, no xanthelasma ENMT Ears: no lesions on external ear Nose: no lesions on external nose Oropharynx: no cyanosis, no pallor Neck Neck: supple, trachea midline Carotid Arteries: bilat (more content not included)... [facility] 12-01-2023 Evaluation note Encounter Date Diagnosis Assessment Notes Nov, Severe chronic obstructive pulmonary disease (ICD-10 - J44.9) [email or web address] Other 12-15-2023 Evaluation note* Encounter Date Diagnosis Assessment Notes Treatment Notes Treatment Clinical Notes Oct, Unspecified atrial fibrillation (ICD-10 - I48.91) Continue meds, followup w cardio. Pt has not heard from Cardiac rehab, will reach out as he was referred by [facility] Oct, Unspecified atrial flutter (ICD-10 - I48.92) Oct, Chronic systolic congestive heart failure (ICD-10 - I50.22) Pt symptoms are improving. Oct, Sepsis due to Escherichia coli without acute organ dysfunction (ICD-10 - A41.51) Resolved. Has finished course of antibiotics Oct, Severe chronic obstructive pulmonary disease (ICD-10 - J44.9) Pt on nicotine patch. Continue to followup w pulmonology. [email or web address] Other 12-13-2023 NoteCardiovascular Medicine [facility] SUBJECTIVE Chief Complaint Patient presents with Hospital Follow-up Atrial Flutter Congestive Heart Failure Alejandro Maradiaga is a 68 y.o. male here for follow-up after his recent admission to [facility]. HPI He initially presented to [facility] with c/o back pain and nausea. He [...] presented emergency department as a transfer from [facility] for uncontrolled atrial flutter. Patient eventually presented to [facility] on 10/13/2020 treated with chief complaint [...] for possible cardioversion by cardiology here at [facility]. Echocardiogram revealed atrial flutter with right bundle [...] Problem List Diagnosis Atrial fibrillation, unspecified type ([facility]/HCC) Acute pyelonephritis Systolic CHF ([facility]/HCC) COPD (chronic obstructive pulmonary disease) ([facility]/HCC) Past Medical History: Diagnosis Date Abnormal ECG Arrhythmia Atrial fibrillation ([facility]/HCC) CHF (congestive heart failure) ([facility]) Family History Problem Relation Name Age of [...] mouth in the morning., Disp: , Rfl: lgmonljoizf-emvcijeyw-zxbtfkbr 200-62.5-25 mcg blister with device, Inhale in [...] patch before rabia (more content not included)... [facility]12-13-2023 NotePatient here for follow up [facility]. He underwent heart cath with Dr. Mckeon, and TESS/cardioversion. Feels better s/p discharge. Denies chest pain, SOB, lightheadedness/syncope, palpitations, and bleeding on Eliquis. Review of Systems Gastrointestinal: Positive for diarrhea.[facility] 10-18-2023 Note Attestation signed by Alex Reyes MD at 10/18/2023 2:21 PM I personally saw and examined the patient on the same date of service as resident/fellow Dr. Keane. I discussed the findings and therapeutic plan with the resident/fellow Dr. Villarreal. I agree with the documentation, except for any edits/updates below. Teaching Physician's Revisions: The patient presented to [facility] after being transferred from outside for atrial [...] Value Ventricular Rate 80 Atrial Rate 80 VA Interval 222 QRS DURATION 154 QT Interval 410 QTC CALCULATION(BAZETT) 472 P Skokie 79 R-Skokie -79 T Wave Skokie 60 Impression Atrial-sensed ventricular-paced rhythm with prolonged AV conduction Abnormal ECG When compared with ECG of 17-OCT-2023 12:57, Electronic ventricular pacemaker has replaced Sinus rhythm Confirmed by Favio REYES, ALEX Ventura ([id number]) on 10/18/2023 1:30:00 PM Lab Results Component Value Date TROPONINI 0.03 10/17/2023 Transesophageal Echo (TESS) Result Date: 10/17/2023 1 1 [facility] Heart Station [address] [place] [address] [phone] (fax) Echocardiogram-[facility] Name: ALEJANDRO MARADIAGA Study Date: 10/17/2023 12:13 PM B/P: 125 mmHg/93 mmHg HR: 144 bpm Date of : 1955 Location: [facility] Height: 71 in. Age: 68 year(s) Patient Room: 3129 Weight: 157 lb. Gender: Male Patient Status: InPt BSA: 1.9 m2 Indication: Atrial Fibrillation, Pre-cardioversion Examination: TESS (Transesophageal Echo / CFI), Agitated Saline Image Quality: Excellent Patient Consent: Informed, written consent was obtained for the procedure Exam Details Contrast: I.V. dose of agitated saline Exam Location: A TESS was performed in the [employer] without complications Anesthesia Pharyngeal anesthesia with viscous [...] tricuspid regurgitation. Pulmonic Kajal (more content not included)...[facility]12-09-2023 NoteHospital Medicine Discharge Summary Final Discharge [...] presented emergency department as a transfer from [facility] for uncontrolled atrial flutter. Patient eventually presented to [facility] on 10/13/2020 treated with chief complaint [...] for possible cardioversion by cardiology here at [facility]. Echocardiogram revealed atrial flutter with right bundle [...] in [address] Kiara MD, [place] is advised to follow up with you within 1-2 weeks. Follow-up with: Cardiology Scheduled appointments: Future Appointments Date Time Provider Department Center 10/22/2023 9:00 AM Lalit Egan NP [facility] Your medication list START taking these [...] 10 mg tablet Commonly known as: Lipitor gostkbjbmtf-cemkxqbxq-yomudmlj 200-62.5-25 mcg blister with device Commonly known as: Trelegy Ellipta ipratropium-albuteroL 0.5-2.5 mg/3 mL nebulizer solution Commonly known as: Duo-Neb montelukast 10 mg tablet Commonly known as: Singulair Where to Get Your Medications These medications were sent to [facility]/pharmacy #[id number] - [place], [place] - [address] OF [address], [place] [id number] apixaban 5 mg tablet aspirin 81 mg EC tablet dapagliflozin propanediol 10 mg metoprolol succinate XL 25 mg 24 hr tablet spironolactone 25 mg tablet Alejandro is allergic to adenosine and latex. Disposition: Home or Self Care Discharge Condition: Stable Code Status: Full Code Diagnostic Results Hematology: Results from last 7 days Lab Units 10/18/23 0540 10/17/23 0510 10/16/23 0426 10/15/231936 WBC AUTO 10*3/uL 7.34 7.46 < > 7.10 HEMOGLOBIN g/dL 15.5 15.6 < > 15.3 HEMATOCRIT % 45.5 45.7 < > 44.8 MCV fL 97.2 96.8 < > 98.2* PLATELETS AUTO 10*3/uL 318 300 < > 279 INR -- -- -- 1.28* < > = values in this interval not displayed. Chemistry: Results from last 7 days Lab Units 10/17/23 0510 10/16/236 10/15/237 SODIUM mmol/L 136 -- 135* POTASSIUM mmol/L [...] Cardiology: Normal rate, r (more content not included)...[facility]12-09-2023 NoteHospital Medicine Daily Progress Note - 10/18/2023 11:47 AM; Room: 3129/3129-01 Admission: 10/15/2023 5:13 PM; Length of stay: 3 days THE HOSPITALIST TEAM PREFERS TO USE [employer] CHAT FOR COMMUNICATION 7AM-7PM. IF I DO NOT RESPOND WITHIN 15 MINUTES, PLEASE PAGE ME/CALL THROUGH THE APN. FROM 7PM-7AM, PLEASE PAGE [phone](COVR) Code Status: Full Code Barriers to Discharge: [...] Problems Principal Problem: Atrial fibrillation, unspecified type ([facility]) Active Problems: Acute pyelonephritis Systolic CHF ([facility]) COPD (chronic obstructive pulmonary disease) ([facility]) Assessment and Plan A flutter Acute pyelonephritis, [...] oral, Daily famotidine, 20 mg, oral, BID jjxguxbavtt-cvamieime-sdgexkrx, 1 puff, inhalation, Daily ipratropium-albuteroL, 3 mL, [...] 7 days Lab Units 10/17/23 0510 10/16/23 04210/15/23 1937 SODIUM mmol/L 136 -- 135* POTASSIUM mmol/L [...] LDL 84 10/16/2023 No results found for: [id number] , IRON , TIBC , C3 , C4 , WENCESLAO , CANCA , ASO , PSA , CEA , CA125 , CA199 , AFP , CA153 Imaging Transesophageal Echo (TESS) 1 1 [facility] Heart Station [address] [place] [address] [phone] (fax) Echocardiogram-[facility] Name: ALEJANDRO MARADIAGA Study Date: 10/17/2023 12:13 PM B/P: 125 mmHg/93 mmHg HR: 144 bpm Date of : 1955 Location: [facility] Height: 71 in. Age: 68 year(s) Patient Room: [facility] Weight: 157 lb. Gender: Male Patient Status: InPt BSA: 1.9 m2 Indication: Atrial Fibrillation, Pre-cardioversion Examination: TESS (Transesophageal Echo / CFI), Agitated S (more content not included)...[facility] 10-17-2023 NotePt going into chemical laboratory technician suite for procedure.[facility]12-08-2023 NoteHospital Medicine Daily Progress Note - 10/17/2023 1:20 PM; Room: [facility]/3129- Admission: 10/15/2023 5:13 PM; Length of stay: 2 days THE HOSPITALIST TEAM PREFERS TO USE [employer] FOR COMMUNICATION 7AM-7PM. IF I DO NOT RESPOND WITHIN 15 MINUTES, PLEASE PAGE ME/CALL THROUGH THE APN. FROM 7PM-7AM, PLEASE PAGE [phone](COVR) Code Status: Full Code Barriers to Discharge: [...] Problems Principal Problem: Atrial fibrillation, unspecified type (CMS/HCC) Active Problems: Acute pyelonephritis Systolic CHF (CMS/HCC) COPD (chronic obstructive pulmonary disease) ([facility]) Assessment and Plan A flutter Acute pyelonephritis, prior to arrival Systolic CHF, EF 20 to 25%, new onset Alcohol use COPD Hyperlipidemia Continue telemetry Continue Digoxin for now for rate control Heparin drip and hold Eliquis LHC and DCCV Continue Rocephin until today CIWA protocol VTE Prophylaxis: IV heparin Scheduled Meds albuterol, 1 puff, inhalation, Daily aspirin, 81 mg, oral, Daily atorvastatin, 80 mg, oral, Nightly cefTRIAXone, 2 g, intravenous, q24h digoxin, 500 mcg, intravenous, Once Followed by digoxin, 100 mcg, intravenous, q6h famotidine, 20 mg, oral, BID envnjxyhstt-qxjrvpnme-pmtfgxgg, 1 Inhalation, inhalation, Daily furosemide, 40 mg, intravenous, q12h ipratropium-albuteroL, 3 mL, nebulization, BID metoprolol succinate XL, 25 mg, oral, Daily montelukast, 10 mg, oral, Nightly nicotine, 1 patch, transdermal, Daily after evening meal potassium chloride, 20 mEq, oral, Once spironolactone, 25 mg, oral, Daily heparin, 0-28 Units/kg/hr, Last Rate: 18 Units/kg/hr (10/17/23824) sodium chloride, 100 mL/hr, Last Rate: 100 mL/hr (10/17/23833) Pertinent Investigations Hematology: Results from last 7 days Lab Units 10/17/2350910/16/2342510/15/231936 WBC AUTO 10*3/uL 7.46 7.42 7.10 HEMOGLOBIN g/dL 15.6 13.7 15.3 HEMATOCRIT % 45.7 40.6 44.8 MCV fL 96.8 99.5* 98.2* PLATELETS AUTO 10*3/uL 300 274 279 INR -- -- 1.28* Chemistry: Results from last 7 days Lab Units 10/17/2350910/16/2342510/15/231936 SODIUM mmol/L 136 -- 135* POTASSIUM mmol/L [...] LDL 84 10/16/2023 No results found for: GQLABLYX30 , IRON , TIBC , C3 , [...] 15-OCT-2023) Abnormal ECG W (more content not included)...[facility]12-08-2023 Note Attestation signed by Eugene Gutierrez [...] Teaching Physician's Revisions: none Eugene Gutierrez MD [facility] Cardiology Cardiology Progress Note Subjective Subjective: Alejandro [...] 136 QT Interval 352 QTC CALCULATION(BAZETT) 465 R-Skokie -74 T Wave [place]ok[place] 62 Impression Atrial flutter with variable A-V [...] (TTE) complete Result Date: 10/16/2023 1 1 [facility] Heart Station [address] [place] [address] (fax) Echocardiogram-[facility] Name: ALEJANDRO MARADIAGA Study Date: 10/16/2023 02:42 PM B/P: 155 mmHg/76 mmHg HR: 109 bpm Date of : 1955 Location: [facility] Height: 71 in. Age: 68 year(s) Patient [...] 4 mmHg Right Ventricle (more content not included)...[facility]12-07-2023 Note Hospital Medicine Daily Progress Note - 10/16/2023 12:51 PM; Room: [address] [place] [address] Admission: 10/15/2023 5:13 PM; Length of stay: 1 days THE HOSPITALIST TEAM PREFERS TO USE [employer] CHAT FOR COMMUNICATION 7AM-7PM. IF I DO NOT RESPOND WITHIN 15 MINUTES, PLEASE PAGE ME/CALL THROUGH THE APN. FROM 7PM-7AM, PLEASE PAGE [phone](COVR) Code Status: Full Code Barriers to Discharge: [...] Problems Principal Problem: Atrial fibrillation, unspecified type ([facility]) Active Problems: Acute pyelonephritis Systolic CHF ([facility]) COPD (chronic obstructive pulmonary disease) ([facility]) Assessment and Plan A flutter Acute pyelonephritis, prior to arrival Systolic CHF, EF 20 to 25%, new onset Alcohol use COPD Hyperlipidemia Continue telemetry Continue Digoxin for now for rate control Heparin drip and hold Eliquis Possible DCCV Continue Rocephin until tomorrow [facility] protocol VTE Prophylaxis: IV heparin Scheduled Meds cefTRIAXone, 2 g, intravenous, q24h digoxin, 100 mcg, intravenous, Daily famotidine, 20 mg, oral, BID heparin, 0-28 Units/kg/hr, Last Rate: 19 Units/kg/hr (10/16/23 1300) Pertinent Investigations Hematology: Results from last 7 days Lab Units 10/16/23 04210/15/231936 WBC AUTO 10*3/uL 7.42 7.10 HEMOGLOBIN g/dL 13.7 15.3 HEMATOCRIT % 40.6 44.8 MCV fL 99.5* 98.2* PLATELETS AUTO 10*3/uL 274 279 INR -- 1.28* Chemistry: Results from last 7 days Lab Units 10/16/2342510/15/231936 SODIUM mmol/L -- 135* POTASSIUM mmol/L -- 3.5 CHLORIDE mmol/L -- 103 CO2 mmol/L -- 24 BUN mg/dL -- 9 CREATININE mg/dL -- 0.63* GLUCOSE mg/dL -- 105* MAGNESIUM mg/dL 1.9 1.6* CALCIUM mg/dL -- 9.2 Results from last 7 days Lab Units 12/06/23 1937 AST U/L 20 ALT U/L 12 ALK PHOS U/L 73 BILIRUBIN TOTAL mg/dL 1.0 BILIRUBIN DIRECT mg/dL 0.3* Historical Values: (Includes values prior to this admission) Lab Results Component Value Date TSH 3.20 10/15/2023 No results found for: [id number] , IRON , TIBC , C3 , [...] need discharge transport arranged?: No (spouse) Signed Shelly Reed MD Hospital Medicine 10/16/2023 12:51 [facility] Note10/16/23 1147 Admission Assessment Questions Verify [...] Discharge? Yes Does the patient have a behavioral health case manager assigned to them through their insurance? No [...] No Do you understand the benefits of [employer]? Yes Were you able to send link and activate MyChart? 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 IF I DO NOT RESPOND WITHIN 15 MINUTES, PLEASE PAGE ME/CALL THROUGH THE APN. FROM 7PM-7AM, PLEASE PAGE [phone](COVR) Chief Complaint No chief complaint on file. History of Present Illness Alejandro Maradiaga is an 68 y.o. male who came from home with past medical history of COPD, current smoker, hyperlipidemia and almost daily alcohol use presented to ER as a transfer from [facility] for uncontrolled A-flutter. Patient presented to [...] Diagnosis Date Noted Atrial fibrillation, unspecified type ([facility]) 10/15/2023 Acute pyelonephritis 10/15/2023 Systolic CHF ([facility]) 10/15/2023 COPD (chronic obstructive pulmonary disease) ([facility]) 10/15/2023 Assessment and Plan A flutter Acute [...] this hospital stay by a member of [facility]. Past Medical History History reviewed. No [...] Total pack years: 7.50 (more content not included)...[facility]10-23-2023 Evaluation note* Encounter Date Diagnosis Assessment Notes Treatment Notes Treatment Clinical Notes Aug, Severe chronic obstructive pulmonary disease (ICD-10 - J44.9) Referral to pulmonary rehab Aug, Tobacco use disorder (ICD-10 - F17.200) [email or web address] Other 10-16-2023 Evaluation note* Encounter Date Diagnosis Assessment Notes Treatment Notes Treatment Clinical Notes Aug, Chronic bronchitis, unspecified chronic bronchitis type (ICD-10 - J42) [email or web address] Other 08-29-2023 Evaluation note* Encounter Date Diagnosis Assessment Notes Treatment Notes Treatment Clinical Notes Jun, Chronic bronchitis, unspecified chronic bronchitis type (ICD-10 - J42) [email or web address] Other 08-11-2023 Evaluation note* Encounter Date Diagnosis [...] likes to keep an rx on hand. [email or web address] Other 05-01-2023 History general Narrative - Reported* Type Description Date Medical History COPD Medical History Seasonal allergies Medical History Hyperlipidemia Surgical History Cataract surgery, both 03/2023 Surgical History Sinus surgery 2019 Surgical History C7 surgery and foramenostomy 19 [email or web address] Other 05-01-2023 History general Narrative - Reported* Type Description Date Medical History Seasonal allergies Medical History Hyperlipidemia Surgical History Cataract surgery, both 03/2023 Surgical History Sinus surgery 2019 Surgical History C7 surgery and foramenostomy 19 93 Hospitalization History rt fibula fx 2017 [email or web address] Other 05-01-2023 History general Narrative - Reported* Type Description Date Medical History Seasonal allergies Medical History Hyperlipidemia Medical History Afib Surgical History Cataract surgery, both 03/2023 Surgical History Sinus surgery 2019 Surgical History C7 surgery and foramenostomy 19 93 Hospitalization History rt fibula fx 2017 [email or web address] Other 01-16-2023 History of Present illness Narrative* Jenni Garzonbenigno, PT - 11/25/2022 12:15 PM EST [facility] [place] [address] [place] [address] Physical Therapy Treatment Patient Name: Alejandro Maradiaga Date of : 1955 Today's Date: 11/25/22 Visit Number: 7 Referring Provider: Hunter Cortes DO Patient Primary Language: British Referring Diagnosis: Spondylosis without myelopathy or radiculopathy, [...] symptoms by > 50%. [] [] [] Fpc Goals - 4 weeks Met Progressing Towards [...] current frequency to advance towards short and halfway goals. [] Goals met, discharge to HEP [] Hold or discharge therapy due to: Jenni Huang PT documented in this encounterThe Children'S Hospital [id number] History of Present illness Narrative* Jenni Huang PT - 11/20/2022 12:00 PM EST [facility] [place] [address] [place] [address] Physical Therapy Treatment Patient Name: Alejandro Maradiaga Date of : 1955 Today's Date: 11/20/22 Visit Number: 6 Referring Provider: Hunter Cortes DO Patient Primary Language: British Referring Diagnosis: Spondylosis without myelopathy or radiculopathy, [...] symptoms by > 50%. [] [] [] Health Information Administrator Goals - 4 weeks Met Progressing Towards [...] current frequency to advance towards short and salvage determiner goals. [] Goals met, discharge to HEP [] Hold or discharge therapy due to: Jenni Huang PT documented in this encounterThe Children'S Hospital [id number] History of Present illness Narrative* Jenni Huang PT - 11/18/2022 9:00 AM EST [facility] [place] [address] [place] [address] Physical Therapy Treatment Patient Name: Alejandro Maradiaga Date of : 1955 Today's Date: 11/18/22 Visit Number: 5 Referring Provider: Hunter Cortes DO Patient Primary Language: British Referring Diagnosis: Spondylosis without myelopathy or radiculopathy, [...] symptoms by > 50%. [] [] [] Health Information Administrator Goals - 4 weeks Met Progressing Towards [...] current frequency to advance towards short and halfway goals. [] Goals met, discharge to HEP [] Hold or discharge therapy due to: Jenni Huang PT documented in this encounterThe Children'S Hospital [id number] History of Present illness Narrative* Sheila Ace MA - 11/15/2022 9:50 AM EST Pt called for a refill on Trelegy Ellipta 200-62.5-25 mcg inhaler. Stated he got both of his albuterols but not Trelegy Ellipta. documented in this encounterThe Children'S Hospital [id number] History of Present illness Narrative* Jenni Reina, PT - 11/14/2022 1:30 PM EST [facility] [place] [address] [place] [address] Physical Therapy Treatment Patient Name: Alejandro Maradiaga Date of : 1955 Today's Date: 11/14/22 Visit Number: 4 Referring Provider: Hunter Cortes DO Patient Primary Language: British Referring Diagnosis: Spondylosis without myelopathy or radiculopathy, [...] symptoms by > 50%. [] [] [] Fpc Goals - 4 weeks Met Progressing Towards [...] current frequency to advance towards short and salvage determiner goals. [] Goals met, discharge to HEP [] Hold or discharge therapy due to: Jenni Huang PT documented in this encounterThe Children'S Hospital [id number] History of Present illness Narrative* Rhonda Kaiser MD - 11/14/2022 10:30 AM EST Images from the original note were not included. Pulmonary and Sleep Medicine [facility], [address] [place], [place] [id number] Time:11:24 AM EST Reason for Consultation: COPD History Of Present Illness (includes Chief Complaint) Alejandro Maradiaga is a 67 y.o. male who was referrred to our office for COPD. 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 Patient in the past saw Dr. Tolentino, for over 14 years. However he did switch to [employer], and our office is much more convenient [...] love of saline and possibly moving to [facility] where he does have a sailboat. He also has a daughter who teaches [place] in [facility]. 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 see an broadcast correspondent Prior history of latex allergy COPD Surgical [...] DR capsule, 1 capsule, Disp: , Rfl: afynohrxskw-quyrnzmeixpj-kbagjxtvqz (Trelegy Ellipta) 200-62.5-25 mcg inhaler, Inhale 1 puff (200 mcg total) by mouth 1 (one) time each day., Disp: 60 each, Rfl: 4 uxsmtnpbqrl-zqczzvngkyfq-rtefbytgzc (Trelegy Ellipta) 200-62.5-25 mcg inhaler, Inhale 1 puff by mouth daily, Disp: 60 each, Rfl: 4 nwtgooocvil-ktvfqcqvvbjg-kfprbexlqp (Trelegy Ellipta) 200-62.5-25 mcg inhaler, Inhale 1 puff by mouth daily, Disp: 60 each, Rfl: 4 slapxmojqnz-tymhfxpsblfa-xqhqodxqfj (Trelegy Ellipta) 200-62.5-25 mcg inhaler, Inhale 1 [...] - General (Internal Medicine) documented in this encounterThe Children'S Hospital [id number] History of Present illness Narrative* Jenni Huang, PT - 11/12/2022 3:00 PM EST [facility] [place] [address] [place] [address] Physical Therapy Treatment Patient Name: Alejandro Maradiaga Date of : 1955 Today's Date: 11/12/22 Visit Number: 3 Referring Provider: Hunter Cortes DO Patient Primary Language: British Referring Diagnosis: Spondylosis without myelopathy or radiculopathy, [...] symptoms by > 50%. [] [] [] Health Information Administrator Goals - 4 weeks Met Progressing Towards [...] current frequency to advance towards short and salvage determiner goals. [] Goals met, discharge to HEP [] Hold or discharge therapy due to: Jenni Huang PT documented in this encounterThe Children'S Hospital [id number] History of Present illness Narrative* Jenni Huang PT - 11/05/2022 11:30 AM EST [facility] [place] [address] [place] [address] Physical Therapy Treatment Patient Name: Alejandro Maradiaga Date of : 1955 Today's Date: 11/05/22 Visit Number: 2 Referring Provider: Hunter Cortes DO Patient Primary Language: British Referring Diagnosis: Spondylosis without myelopathy or radiculopathy, [...] over weekend. He feels HEP issued at [facility]. Pain In: 4/10 Out: 2/10 Objective: Poor posture at rest [...] symptoms by > 50%. [] [] [] Fpc Goals - 4 weeks Met Progressing Towards [...] current frequency to advance towards short and halfway goals. [] Goals met, discharge to [facility] [] Hold or discharge therapy due to: Jenni Huang PT documented in this encounterThe Children'S Hospital [id number] History of Present illness Narrative* Jenni Huang PT - 10/30/2022 9:30 AM EST [facility] [place] [address] [place] [address] Physical Therapy Orthopedic Evaluation Patient Name: Alejandro Maradiaga Date of : 1955 Today's Date: 10/30/22 Visit Number: 1 Referring Provider: Hunter Cortes DO Patient Primary Language: British Referring Diagnosis: Spondylosis without myelopathy or radiculopathy, cervical region [M47.812] Diagnoses: ICD-10-CM ICD-9-CM 1. Spondylosis without myelopathy or radiculopathy, cervical region M47.812 721.0 Ambulatory referral to Physical Therapy and Athletic Training 2. Neck pain M54.2 723.1 Subjective: Chief Complaint: B neck pain in suboccipital area & B SCMs. Denies UE pain, numbness, or tingling. Pain: 1/10 currently. Worse 3-02/17 Date of Injury: 2 [...] disease [] Rheumatic disease [x] Arthritis [] GA/Heart Problems [] Cancer [] Pacemaker [] Other [x]Refer to full medical chart in [facility] []Unremarkable [x] Wears glasses/contacts [] [] Bowel or Bladder Issues Tests: [x] X-Ray: [] MRI: [] Other: 10/07/22 Multilevel DDD Objective: [place] Precautions: YES Observations: B mild dupuytren deformity [...] symptoms by > 50%. [] [] [] Health Information Administrator Goals - 4 weeks Met Progressing Towards [...] plan: Yes Treatment Plan: [x] Therapeutic Exercise (75034) [] Iontophoresis: 4 mg/mL Dexamethasone Sodium Phosphate 40-120 mAmin (66793) [x] Therapeutic Activity (88425) [] Ultrasound (33154) [] Gait Training (33307) []Electrical Stimulation Unattended (29314) [x] Neuromuscular Re-education (35980) [] Electrical Stimulation Attended (58194) [x] Manual Therapy (69296) [] Aquatic Therapy (47266) [x] Instruction in HEP [] Lumbar/Cervical Traction () [] [] Dry Needling, 1 or 2 muscles () [] [] Dry Needling, 3 or more muscles () [] Vasopneumatic cold with compression (34732) [] Hot pack/Cold Pack [facility] [place] [address] [place] [address] Physical Therapy Treatment Patient Name: Alejandro Maradiaga Date of : 1955 Today's Date: 10/30/22 Visit Number: 1 Referring Provider: Hunter Cortes DO Patient Primary Language: British Referring Diagnosis: Spondylosis without myelopathy or radiculopathy, [...] & manual well & left with same 1/10 neck pain. Assessment: [] Progressing toward goals. [...] symptoms by > 50%. [] [] [] Fpc Goals - 4 weeks Met Progressing Towards [...] current frequency to advance towards short and salvage determiner goals. [] Goals met, discharge to HEP [] Hold or discharge therapy due to: Jenni Huang PT documented in this encounterThe Children'S Hospital [id number] History of Present illness Narrative* Kalie Meléndez, PT - 02/06/2022 10:30 AM EDT Physical Therapy Treatment PT on hold for 2 weeks, He will email me within 30 days if PT needed Patient Name: Alejandro Maradiaga Referring Provider:?Sinan Lewis MD?? Today's Date: 02/06/2022 Visit Number: 4?? IE: (right hand dominant) Chief Complaint: pain between scapulas and left side of his spine, woke up with it, partial laminectomy C7 on left 25 years ago - numbness on left 2nd finger. Medrol dose pack and Flexerell from Dr. Lewis, from [facility]. Denies UE weakness. DOI: 2 months ago STEPHANIE: NKI, I think I slept funny Pertinent Surgical/Medical History: No past surgical history on file.; No past medical history on file. 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 Kalie Meléndez PT documented in this encounterThe Children'S Hospital [id number] [facility]ician [facility] PATIENT NAME:ALEJANDRO MARADIAGA MRN: [id number] AGE: 66 Years SEX: Male PHONE:[phone] DOS: 07/12/2021 06:15:00 : 1955 ER PHYSICIAN:Kamlesh [...] Venous POCT Docking ProceOrdered Abnormal Lab Result(s): Order Results 07/12/2021 06:31 pH Venous POCT [...] No pneumothorax.IMPRESSION:Mild right midlung opacity suspicious for infiltrate.[facility] thanks you for the opportunity to care for your patient. Workstation ID: [id number] - [id number] DIAGNOSTICS: FOLLOW UP: With: Address: When: Elle Cortes [facility] [address], [address] [place] [id number] Business (1) Comments: [facility]ment[facility] Bacteria identified Aer cx Nom (Drain)[facility] Microbiology PROCEDURE: Culture Drainage SOURCE: Sinus [...] Tetracycline Resistant >=16 Trimethoprim/ Susceptible <=10 SulfamethoxazoleMount Mercer County Community HospitalComment on above:Performed By: #### 607-2 #### [facility] [address] [place], [facility]* Diagnosis Cervicalgia- Primary documented in this encounter [facility] note* Diagnosis Spondylosis without myelopathy or radiculopathy, cervical region- Primary Neck pain Cervicalgia documented in this encounter [facility] note* Diagnosis Spondylosis without myelopathy or radiculopathy, cervical region- Primary Neck pain Cervicalgia Cervicalgia Chronic left shoulder pain Pain in joint, shoulder region Left shoulder pain, unspecified chronicity documented in this encounter [facility] note* Diagnosis Nicotine dependence, uncomplicated, unspecified nicotine product type- Primary Chronic obstructive pulmonary disease, unspecified COPD type (CMS/HCC) documented in this encounter [facility] note* Diagnosis Spondylosis without myelopathy or radiculopathy, cervical region- Primary Neck pain Cervicalgia Cervicalgia Chronic left shoulder pain Pain in joint, shoulder region Left shoulder pain, unspecified chronicity documented in this encounter [facility] note* Diagnosis Spondylosis without myelopathy or radiculopathy, cervical region- Primary Neck pain Cervicalgia Cervicalgia Chronic left shoulder pain Pain in joint, shoulder region Left shoulder pain, unspecified chronicity documented in this encounter [facility] noteNo [place] [facility] Other Reason for visit Narrative* Consultation (Routine) - Authorized Specialty Diagnoses / Procedures Referred By Kenny glover Referred To Contact Physical Therapy Diagnoses Pain in left shoulder Cervicalgia Sinan Lewis MD [address] [place] [address] [facility] Physical Therapy [address] [address] Referral ID Status Reason Start Date Expiration Date Visits Requested Visits Authorized [id number] Authorized Specialty Services Required 01/15/2022 07/14/2022 1 8 [facility] for visit Narrative* Consultation (Routine) - Authorized Specialty Diagnoses / Procedures Referred By Contac t Referred To Contact Physical Therapy Diagnoses Spondylosis without myelopathy or radiculopathy, cervical region Hunter Cortes DO [address] [place] [address] [facility] Physical Therapy [address] [place] [address] Referral ID Status Reason Start Date Expiration Date Visits Requested Visits Authorized [id number] Authorized Specialty Services Required 2 04/07/2023 1 8 [facility] Summary Purpose Family History No Family History Records FoundNo Family History Records FoundNo Family History Records FoundNo Family History Records FoundNo Family History Records FoundNo Family History Records Found Advance Directives No Advanced Directives Records FoundDocuments on File Type Date Recorded Patient Equity Structurer Expl anation Power of Medical Staff Assistant Reason for Referral Specialty Diagnoses / Procedures Referred By Kenny t Referred To Contact Diagnoses Chronic obstructive pulmonary disease, unspecified COPD type (CMS/HCC) Rhonda Kaiser MD [address] [address] Referral ID Status Reason Start Date Expiration Date Visits Re quested Visits Authorized [id number] Closed 1 1 Specialty Diagnoses / Procedures Referred By Kenny glover Referred To Contact Radiology Diagnoses Nicotine dependence, uncomplicated, unspecified nicotine product type Procedures CT Lung Screening Rhonda Kaiser MD [address] [address] [facility] Referral ID Status Reason Start Date Expiration Date V isits Requested Visits Authorized [id number] Authorized 11/14/2022 05/13/2023 1 1 Reason *Waiting for appt Establish for COPD - moved here from [place] Diagnosis 1 Chronic bronchitis, unspecified chronic bronchitis type (J42) Referral Organization [facility] Referring Provider First Name Shanell Referring Provider Last Name Kiara Referring Provider Specialty Family Medi cine Referred Organization [facility] Referred Provider Tima Osorio Referred Address [address] [place] [address],[place] [address],[place], [place],[address] Referred Provider Specialty Pulmonary Di seases Referral Priority Routine General Notes Nga Arellano 03:29:44 PM >received today, sent P2P Additional Source Comments (unrecognized sect ion and content) No Status Records FoundNo Status Records FoundNo Status Records FoundNo Status Records FoundNo Status Records FoundNo Status Records Found INFORMATION SOURCE (unrecogn ized section and content) DATE CREATED AUTHOR 07/13/2021 [facility] DATE CREATED AUTHOR AUTHOR'S ORGANIZ ATION 11/25/2022 [facility] DATE CREATED AUTHOR AUTHOR'S ORGANIZ ATION [facility]/18/2023 [facility] DATE CREATED AUTHOR AUTHOR'S ORGANIZ ATION 03/04/2023 [facility] DATE CREATED AUTHOR AUTHOR'S ORGANIZ ATION 12/03/2023 [facility] DATE CREATED AUTHOR AUTHOR'S ORGANIZ ATION 12/17/2023 [facility] Care Teams (unrecognized sec tion and content) Internal Controls Specialist Relationship Specialty Start Date End Date Elle Cortes MD [address] [address] PCP - General Internal Medicine 10/18/21 Internal Controls Specialist Relationship Specialty Start Date End Date Elle Cortes MD [address] [address] PCP - General Internal Medicine 10/18/21 Internal Controls Specialist Relationship Specialty Start Date End Date Elle Cortes MD [address] [address] PCP - General Internal Medicine 10/18/21 Internal Controls Specialist Relationship Specialty Start Date End Date Elle Cortes MD [address] [address] PCP - General Internal Medicine 10/18/21 Internal Controls Specialist Relationship Specialty Start Date End Date Elle Cortes MD [address] [place] [address] [place] [address] PCP - General Internal Medicine 10/18/21 Internal Controls Specialist Relationship Specialty Start Date End Date Elle Cortes MD [address] [facility] [address] [place] [address] PCP - General Internal Medicine 10/18/21 Internal Controls Specialist Relationship Specialty Start Date End Date Elle Cortes MD [address] [facility] [address] [place] [address] PCP - General Internal Medicine 10/18/21 Ordered [...] 11/26/2022 ipratropium-albuteroL (DUONEB) 0.5-2.5 mg/3 mL nebulizer solutionIndications:Therapeutic Strategy Lead carmen obstructive pulmonary disease, unspecified COPD type [...] Dispensed Refills Start Date End Da te wmbijidxsgy-onsziaxkcdyt-gc lanterol (Trelegy Ellipta) 200-62.5-25 mcg inhaler Inhale [...] BE BASED ON THE PRIMARY CLINICAL RECORDS. [employer] provides no warranty or guarantee of the accuracy or completeness of information in this document.
--- NOTE | 2023-12-19 10:50 | CA_ITS ---
Patient Name: GABRIELA JAFFE MR#: [id number] : 1955 Exam Date: 12/19/2023 Ordering Doctor: LUIS MONTELONGO ECHOCARDIOGRAM REPORT PROCEDURE: CA ECHO DOPPLER COMPLETE INDICATIONS: ATRIAL FLUTTER, hypertension, smoker COMPARISON: None. DESCRIPTION: COMPLETE ECHOCARDIOGRAM Real-time transthoracic echocardiography with 2D, M-mode, spectral and color flow Doppler performed. QUALITY: LEFT VENTRICLE: Normal chamber size. Normal left ventricular wall thickness. Normal systolic function. LV EF: Estimated left ventricular ejection fraction is normal (55%). DIASTOLIC: Diastolic function is indeterminate. ATRIAL SEPTUM: Visually appears intact. LEFT ATRIUM: Normal chamber size. RIGHT ATRIUM: Normal chamber size. RIGHT VENTRICLE: Normal chamber size. Normal right ventricular systolic function. TRICUSPID VALVE: Normal mobility and thickness. No stenosis with trivial regurgitation. Doppler studies reveal mildly (35-45) elevated right sided pressures. RVSP 39 mmHg MITRAL VALVE: Mildly thickened with normal mobility. No evidence of mitral valve stenosis. Trivial mitral regurgitation. AORTIC VALVE: Normal trileaflet appearance. Thickened aortic valve. Normal leaflet mobility. No evidence of aortic valve stenosis. Trivial aortic regurgitation. AORTIC ROOT: Normal diameter and appearance. PULMONIC VALVE: Normal thickness and mobility. No stenosis. No regurgitation. PERICARDIUM: No evidence of pericardial effusion. IVC: IVC is dilated and does not collapse. PLEURA: CONCLUSION: 1. Normal left ventricular size and systolic function. LVEF is 55%. 2. Normal right ventricular size and systolic function. 3. No significant valvular dysfunction. 4. Mildly elevated right-sided pressures. Adult Echocardiography Procedure Report Left Ventricle LVEDD (3.7 - 5.6 cm): 4.91 cm LVESD (2.2 - 4.0 cm): 3.85 cm LVIVS thickness (0.6 - 1.2 cm): 0.83 cm LVPW thickness (0.5 - 1.0 cm): 0.94 cm e': 0.09 m/s E - e': 6.10 LVOT Max Gradient: 4.36 mm[Hg] LVOT Area (cm2): 1.04 m/s Peak Velocity (LVOT): 1.04 m/s Mean Velocity (LVOT): 0.71 m/s LVOT Diameter 2.61 cm Left Atrium LA Volume Index (2D A2C): 26.19 ml/m2 Left Atrium Systolic Dimension: 3.40 cm Mitral Valve MV E to A Ratio: 0.66 Mitral Valve A-Wave Peak Velocity: 0.84 m/s Mitral Valve E-Wave Peak Velocity: 0.56 m/s Right Ventricle Aorta AO Root Diam: 3.71 cm Aortic Valve AoV Area (Peak Darrell): 4.03 cm2, 4.03 cm2 AoV Area (VTI): 3.85 cm2, 3.83 cm2 Peak Velocity(Antegrade Flow): 1.39 m/s, 1.39 m/s Peak Gradient(Antegrade Flow): 7.68 mm[Hg], 7.68 mm[Hg] Mean Velocity(Antegrade Flow): 0.94 m/s, 0.93 m/s Mean Gradient(Antegrade Flow): 4.13 mm[Hg], 4.05 mm[Hg] Velocity Time Integral: 27.34 cm, 27.13 cm Tricuspid Valve Peak Velocity (Regurgitant Flow): 2.46 m/s Pulmonic Valve Peak Velocity: 1.02 m/s Peak Gradient: 4.19 mm[Hg] Right Atrium Right Atrium Systolic Pressure: 39.74 ml, 39.74 ml Dictated by: Richard Gregg M.D. on 12/19/2023 at 18:45 Approved by: Richard Gregg M.D. on 12/19/2023 at 18:48
== END 2023-12-19 10:00 | disposition home or self-care (01) ==
LOC: CARD 10:00
PROVIDERS: PCP Family Medicine; Visit Provider Internal Medicine Cardiovascular Disease
DX: I48.92 Unspecified atrial flutter (principal); I48.4 Atypical atrial flutter
CPT/HCPCS: 93306

== ENCOUNTER 2024-01-06 07:50 | Outpatient (RCR) | payer MEDICARE, SELFPAY ==
--- NOTE | 2023-12-05 12:53 | CR1_ITS ---
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
--- NOTE | 2024-01-05 13:37 | CR1_ITS ---
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
--- NOTE | 2024-02-03 11:20 | CR1_ITS ---
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
== END 2024-02-26 14:42 | disposition home or self-care (01) ==
LOC: CR 07:50
PROVIDERS: PCP Family Medicine; Visit Provider Internal Medicine Cardiovascular Disease
DX: I50.22 Chronic systolic (congestive) heart failure (principal)
CPT/HCPCS: 93798

== ENCOUNTER 2024-01-15 09:30 | Outpatient (OUT) | payer MEDICARE, SELFPAY ==
--- OUTSIDE RECORDS SUMMARY | 2024-01-15 09:37 | XMS_ITS | CCD ---
Author Name Unknown Address [id number] [place] [address] Organization [facility] Care Team Providers Care Professional Fighter Name Role Phone Sophia CEBALLOS, Elle Knowles [...] FOSSELMAN, ELLE D Primary Care Unavailable TIANA BROWN~[id number], TIANA BROWN Attending Unavailable SINAN AC S Referring Unavailable FOSSELMAN, ELLE D Primary Care Unavailable STORM VALDES Attending Unavailabl virginie AC NELUNA S Referring Unavailable FOSSELMAN, ELLE D Primary Care Unavailable STORM VALDES Attending Unavailabl e JOSHUA NEELAY S Referring Unavailable FOSSELMAN, ELLE D Primary Care Unavailable TIANA BROWN~[id number], TIANA BROWN Attending Unavailable SINAN AC Referring Unavailable ELLE CORTES Primary Care Unavailable AVA GODFREY Attending Unavailable ELLE CORTES Primary Care Unavailable Shanell Craig Unavailable Irma Ontiveros Unavailable Tima Osorio Unavailable TAMIR, HANI Referring Unavailable TAMIR, HANI Referring Unavailable LALIT EGAN Attending Unavailable ABEL CASTANEDA Attending Unavailable TAMIR, HANI Referring Unavailable TAMIR, HANI Referring Unavailable SHAIKH MATHEW Referring Unavailable TAMIR, HANI Admitting Unavailable TAMIR, HANI Attending Unavailable TAMIR, HANI Referring Unavailable TAMIR, HANI Referring Unavailable ELVIRA WESTON Referring Unavailabl e TAMIR, HANI Referring Unavailable TAMIR, HANI Referring Unavailable Shanell Craig Primary Care Unavailable Irma Ontiveros Attending Unavailable Irma Ontiveros Admitting Unavailable Allergies Allergy Classification Reported Allergen(s) Allergy Type Date of Onset Reaction(s) Facility (20 sources) Adenosine; Translations: [ADENOSINE] Drug Allergy 1 Shortness of breath, anaphylaxis [facility] (20 sources) Latex; Translations: [LATEX] Drug Allergy 1 Shortness of breath [facility] (11 sources) Ibuprofen; Translations: [IBUPROFEN] Drug Allergy 1 Shortness of breath [facility] (11 sources) valsartan; Translations: [VALSARTAN] Drug Allergy 1 [facility] (1 source) Adenosine Drug Allergy 3 [facility] (1 source) Latex Drug allergy (disorder) 3 [facility] Medications Current Medications Medication Drug Class(es) Dates [...] hr tablet Take by mouth. 0 Active [id number] 200 actuat albuterol 0.09 mg/actuat metered dose inhaler (20 sources) beta2-Adrenergic Agonist Start: 11-14-2022 take 2 puff(s) by inhalation twice daily albuterol HFA (PROAIR HFA ; PROVENTIL HFA ; VENTOLIN HFA) 90 mcg/actuation inhaler Indications: Chronic obstructive pulmonary disease, unspecified COPD type ([facility]) Inhale 2 puffs 2 (two) [...] a day Active Fluticasone Furo ate Active ifxksvdswst-bguppolwbyoz-jvl anterol (Trelegy Ellipta) 200-62.5-25 mcg inhaler (20 sources) Start: 11-15-2022 take 1 puff(s) by mouth once daily vjatdihnpna-aeadbixbejbd-zqvhvrbgwb (Trelegy Ellipta) 200-62.5-25 mcg inhaler Inhale 1 puff (200 mcg total) by mouth 1 (one) time each day. 60 each 4 11/15/2022 Active Start: 10-10-2022 take 1 puff(s) by mouth once daily hmigwelxqvf-nzhizvaycjsq-iilrfszqwx (Raphael legy Ellipta) 200-62.5-25 mcg inhaler Inhale 1 puff by mouth once daily 60 each 4 10/10/2022 Active Start: 05-30-2022 take 1 puff(s) by mouth once daily pzmwbasqise-slammlheqnfn-uitxwafvnf (Raphael legy Ellipta) 200-62.5-25 mcg inhaler Inhale 1 puff by mouth daily 60 each 4 05/30/2022 Active Start: 04-18-2022 take 1 puff(s) by mouth once daily naqxwqexbgt-cjrsxevgqspw-jnqticqrwt (Raphael legy Ellipta) 200-62.5-25 mcg inhaler Inhale 1 puff by mouth daily 60 each 4 04/18/2022 Active Start: 12-27-2021 End: 11-15-2022 take 1 puff(s) by mouth once daily vcojkgwpqdm-gvdipevewwfm-iuoozpgqci (Raphael legy Ellipta) 200-62.5-25 mcg inhaler Inhale 1 puff (200 mcg total) by mouth 1 (one) time each day. 60 each 4 12/27/2021 11/15/2022 Discontinued (Reorder) Start: 12-27-2021 take 1 puff(s) by mouth once daily zzrqbrrgbky-unzksvcfhpvv-xkssyxenpc (Raphael legy Ellipta) 200-62.5-25 mcg inhaler Inhale 1 puff (200 mcg total) by mouth 1 (one) time each day. 60 each 4 12/27/2021 Active Start: 12-27-2021 take 1 puff(s) by inhalation once daily pchqfvsvbaq-gnkmepzxxtot-ulqpirxjil (Raphael legy Ellipta) 200-62.5-25 mcg inhaler Inhale [...] Chronic obstructive pulmonary disease, unspecified COPD type ([facility]) Take 4 tablets (40 mg [...] Range Facility Office Visiton 12-16-2023 Follow-up visit [id number] Alejandro Maradiaga 1955 M Date Provider Department Center 12/16/2023 ABEL TORRES Family History Problem Relation Age of Onset Stroke Mother Family Status - Relation Status Age at Mother Level of Service:47860 MI OFFICE/OUTPATIENT [facility] 60 MINUTES Normal [facility] CT lung screeningon 11-27-[address] lung screening [facility] [place] [address] CT Scan Report Signed Patient: Alejandro Maradiaga MR#: [id number] 530 : 1955 Acct:[id number] Age/Sex: 68 / M ADM Date: 11/27/23 Loc: [facility] Room: Type: [facility] Attending Dr: Irma Ontiveros MD Copies to: [...] Davidson Jr., D.ORicky11/27/2023 2:10 PM Dictation Location: [place] [address] Transcribed By: [facility] 11/27/23 1410 Dictated By: Asim Davidson Jr, DO 11/27/23 1406 Signed By: 11/27/[address] [facility] Follow-Upon 10-22-2023 Follow-Up [id number] Alejandro Maradiaga 1955 M Date Provider Department Center 10/22/2023 LALIT LARES EDGAR Jones [facility] Family History Problem Relation Age of Onset Stroke Mother Family Status - Relation Status Age at Mother Level of Service:58888 MI OFFICE/OUTPATIENT ESTABLISHED MOD MDM 30-39 MIN Reason for Visit and Comments: Hospital Follow-up [832] Atrial Flutter [101] Congestive Heart Failure [127] [facility] 36on 10-20-2023 36 Discharge date: 10/18/23 Call date: 10/20/23 Spoke with: patient HF Follow-up date: 10/22/23 Med reconciliation completed: yes Questions/Concerns: Home meds reviewed with pt. Pt denied any CP or SOB. Pt stated he has been taking his daily weights as well as HR and SpO2. Pt stated he will be at his follow up appt. Lead Relay Tester instructed pt to bring a log of weights and HR to follow up appt. Normal [facility] Documentationon 10-20-2023 Documentation [id number] Alejandro Maradiaga 1955 M Date Provider Department Center 10/20/2023 [id number], [facility] VASC LAB CT HeartVAS No family history on file Reason for Visit and Comments: HF inpatient satisfaction survey sent. [Other] Normal [facility] Telephoneon 10-20-2023 Telephone [id number] Alejandro Maradiaga 1955 M Date [facility] Department [place] 10/20/2023 [id number], [facility] VAS LAB CT HeartVAS No family history on file Reason for Visit and Comments: HF post discharge call [Other] [facility] 30on 10-18-2023 30 The patient is Moderately Stable - Low risk of patient condition declining or worsening The patient's goals for the shift include comfort and rest The clinical goals for the shift include vss Over the shift, the patient continued to make progress toward the following goals. Normal [facility] APTTon 10-18-2023 ACTIVATED PARTIAL THROMBOPLASTIN TIME IN PPP BY COAGULATION ASSAY 33.7 Seconds Normal 25.0-35.0 [facility] Comment on above: Result Comment: Clin ical significance of the APTT is questionable in the presence of heparin. Performed By: #### L [id number] #### [facility] (BEAKER) [address] [place] [address] CBCon 10-18-2023 Erythrocyte distribution width (RBC) [Ratio] 13.2 % Normal 11.5-15.0 [facility] Comment on above: Performed By: #### L [id number] #### [facility] (BEAKER) [address] [place] [address] ERYTHROCYTE MEAN CORPUSCULAR HEMOGLOBIN CONCENTRATION (G/DL) BY AUTOMATED 34.1 g/dL Normal 32.0-35.0 [facility] Comment on above: Performed By: #### L [id number] #### [facility] [address] [place] [address] Hematocrit (Bld) [Volume fraction] 45.5 % Normal 39.0-55.0 [facility] Comment on above: Performed By: #### L [id number] #### [facility] ([facility]) [address] [place] [address] Hemoglobin (Bld) [Mass/Vol] 15.5 g/dL Normal 13.0-17.0 [facility] Comment on above: Performed By: #### L [id number] #### [facility] ([facility]) [address] [place] [address] MCH (RBC) [Entitic mass] 33.1 pg High 27.0-33.0 [facility] Comment on above: Performed By: #### L [id number] #### [facility] ([facility]) [address] [place] [address] MCV (RBC) [Entitic vol] 97.2 fL Normal 82.0-98.0 [facility] Comment on above: Performed By: #### L [id number] #### [facility] ([facility]) [address] [place] [address] PLATELETS (10*3/UL) IN BLOOD AUTOMATED COUNT 318 10*3/uL Normal 150-400 [facility] Comment on above: Performed By: #### L [id number] #### [facility] ([facility]) [address] [place] [address] RBC (Bld) [#/Vol] 4.68 10*6/uL Normal 4.20-5.70 [facility] Comment on above: Performed By: #### L [id number] #### [facility] ([facility]) [address] [place] [address] WBC (Bld) [#/Vol] 7.34 10*3/uL Normal 4.00-10.60 [facility] Comment on above: Performed By: #### L [id number] #### [facility] ([facility]) [address] [place] [address] DIGOXIN LEVELon 10-18-2023 DIGOXIN (NG/ML) IN SER/PLAS 1.1 ng/mL Normal 0.7-2 [facility] Comment on above: Performed By: #### L [id number] #### [facility] ([facility]) [address] [place] [address] Documentationon 10-18-2023 Documentation [id number] Alejandro Maradiaga 1955 Date Provider Department Center 10/18/[id number] KEANE [facility] CARD Ingrid [facility] No family history on file Normal [facility] 30on 10-17-2023 30 The patient is Moderately [...] the next 3 months Outcome: Progressing Normal [facility] ANESon 10-17-2023 ANES Patient: Alejandro Maradiaga Choose [...] discussed with attending. Additional Equipment Requests Normal [facility] ANES - Attestation signed by Alex Reyes [...] discussed with attending. Additional Equipment Requests Normal [facility] APTTon 10-17-2023 ACTIVATED PARTIAL THROMBOPLASTIN TIME IN PPP BY COAGULATION ASSAY 147.2 Seconds Critically high 25.0-35.0 [facility] Comment on above: Result Comment: Clin ical significance of the APTT is questionable in the presence of heparin. Performed By: #### L [id number] ####[facility] ([facility])[address] [place] [address] ACTIVATED PARTIAL THROMBOPLASTIN TIME IN PPP BY COAGULATION ASSAY 113.7 Seconds High 25.0-35.0 [facility] Comment on above: Result Comment: Clin ical significance of the APTT is questionable in the presence of heparin. Performed By: #### L [id number] ####[facility] ([facility])[address] [place] [address] BASIC METABOLIC PANELon 12- Anion gap [Moles/Vol] 12 mmol/L Normal 7-20 [facility] Comment on above: Performed By: #### L [id number] #### [facility] ([facility]) [address] [place] [address] Calcium [Mass/Vol] 9.2 mg/dL Normal 8.6-10.3 [facility] Comment on above: Performed By: #### L [id number] #### [facility] ([facility]) [address] [place] [address] Chloride [Moles/Vol] 104 mmol/L Normal 98-107 [facility] Comment on above: Performed By: #### L [id number] #### [facility] ([facility]) [address] [facility] [place] [address] CO2 [Moles/Vol] 24 mmol/L Normal 21-31 [facility] Comment on above: Performed By: #### L [id number] #### [facility] ([facility]) [address] [place] [address] Creatinine [Mass/Vol] 0.64 mg/dL Low 0.70-1.30 [facility] Comment on above: Performed By: #### L [id number] #### [facility] ([facility]) [address] [place] [address] GLOMERULAR FILTRATION RATE ML/MIN/1.73 SQ M.PREDICTED 103.1 mL/min/1.73m*2 Normal >60.0 [facility] Comment on above: Result Comment: The [facility]???s estimated glomerular filtration rate (eGFR) will no [...] individuals. Performed By: #### L [id number] #### [facility] ([facility]) [address] [place] [address] Glucose [Mass/Vol] 109 mg/dL High 70-100 [facility] Comment on above: Performed By: #### L [id number] #### [facility] ([facility]) [address] [place] [address] Potassium [Moles/Vol] 3.6 mmol/L Normal 3.5-5.1 [facility] Comment on above: Performed By: #### L [id number] #### [facility] ([facility]) [address] [place] [address] Sodium [Moles/Vol] 136 mmol/L Normal 136-145 [facility] Comment on above: Performed By: #### L [id number] #### [facility] ([facility]) [address] [place] [address] Urea nitrogen [Mass/Vol] 5 mg/dL Low 7-25 [facility] Comment on above: Performed By: #### L [id number] #### [facility] ([facility]) [address] [place] [address] UREA NITROGEN/CREATININE (MASS RATIO) IN SER/PLAS 7.8 Normal [facility] Comment on above: Performed By: #### L [id number] #### [facility] ([facility]) [address] [place] [address] CBCon 10-17-2023 Erythrocyte distribution width (RBC) [Ratio] 12.9 % Normal 11.5-15.0 [facility] Comment on above: Performed By: #### L [id number] ####[facility] ([facility])[address] [place] [address] ERYTHROCYTE MEAN CORPUSCULAR HEMOGLOBIN CONCENTRATION (G/DL) BY AUTOMATED 34.1 g/dL Normal 32.0-35.0 [facility] Comment on above: Performed By: #### L [id number] ####[facility] ([facility])[address] [place] [address] Hematocrit (Bld) [Volume fraction] 45.7 % Normal 39.0-55.0 [facility] Comment on above: Performed By: #### L [id number] ####[facility] ([facility])[address] [place] [address] Hemoglobin (Bld) [Mass/Vol] 15.6 g/dL Normal 13.0-17.0 [facility] Comment on above: Performed By: #### L [id number] ####[facility] ([facility])[address] [place] [address] MCH (RBC) [Entitic mass] 33.1 pg High 27.0-33.0 [facility] Comment on above: Performed By: #### L [id number] ####[facility] ([facility])[address] [place] [address] MCV (RBC) [Entitic vol] 96.8 fL Normal 82.0-98.0 [facility] Comment on above: Performed By: #### L [id number] ####[facility] (BEAKER)[address] [place] [address] PLATELETS (10*3/UL) IN BLOOD AUTOMATED COUNT 300 10*3/uL Normal 150-400 [facility] Comment on above: Performed By: #### L [id number] ####[facility] ([facility] [place] [address] RBC (Bld) [#/Vol] 4.72 10*6/uL Normal 4.20-5.70 [facility] Comment on above: Performed By: #### L [id number] ####[facility] ([facility])[address] [place] [address] WBC (Bld) [#/Vol] 7.46 10*3/uL Normal 4.00-10.60 [facility] Comment on above: Performed By: #### L [id number] ####[facility] ([facility])[address] [place] [address] HPon 10-17-2023 H&P reviewed. The patient was examined and there are no changes to the H&P. Will prcoeed with coronary angiogram and right heart cath to further assess newly reduced EF. Procedures' details, risks and benefits discussed with the patient and he's agreeable. Normal [facility] HP - Attestation signed by Alex Reyes [...] presented emergency department as a transfer from [facility] for uncontrolled atrial flutter. Patient eventually presented to [facility] on 10/13/2020 treated with chief complaint [...] for possible cardioversion by cardiology here at [facility]. Echocardiogram revealed atrial flutter with [...] -- (!) 138 17 95 % -- 10/16/23 2038 -- -- -- 96 19 -- -- [...] General: N (more content not included)... Normal [facility] MAGNESIUMon 10-17-2023 Magnesium [Mass/Vol] 2.0 mg/dL Normal 1.9-2.7 [facility] Comment on above: Performed By: #### L [id number] ####[facility] ([facility]AKER)[address] [place] [address] NURSNOTEon 10-17-2023 NURSNOTE Digoxin changed to oral, still holding med for HR under 60 per Cardiology, Chaaban, instruction Normal [facility] NURSNOTE Per Gonzalez, Cardiology, hold 500mcg of Digoxin, but continue 100mcg digoxin q6 order, hold if HR less than 100 Update: new orders are to hold if HR less than 60 Normal [facility] TROPONIN Ion 10-17-2023 Troponin I.cardiac [Mass/Vol] 0.03 ng/mL Normal 0.00-0.04 [facility] Comment on above: Performed By: #### L [id number] #### [facility] ([facility]) [address] [place] [address] Troponin I.cardiac [Mass/Vol] 0.03 ng/mL Normal 0.00-0.04 [facility] Comment on above: Performed By: #### L [id number] #### [facility] ([facility]ER) [address] [place] [address] 30on 10-16-2023 30 The patient is Moderately [...] urinary retention Outcome: Adequate for Discharge Normal [facility] 30 Daily Case Managemen t Update Multidisciplinary rounds have been completed. Barriers to Discharge: Tx from [place] with afib. TTE showed and EF of [...] appropriate for patient?: Yes New Consults: Normal [facility] 30 The patient is Moderately Stable - [...] the next 3 months Outcome: Progressing Normal [facility] 30 The patient is Moderately Stable - [...] maintained within normal limits Outcome: Progressing Normal [facility] APTTon 10-16-2023 ACTIVATED PARTIAL THROMBOPLASTIN TIME IN PPP BY COAGULATION ASSAY 99.3 Seconds High 25.0-35.0 [facility] Comment on above: Result Comment: Clin ical significance of the APTT is questionable in the presence of heparin. Performed By: #### L [id number] #### [facility] ([facility]) [address] [place] [address] ACTIVATED PARTIAL THROMBOPLASTIN TIME IN PPP BY COAGULATION ASSAY 51.6 Seconds High 25.0-35.0 [facility] Comment on above: Result Comment: Clin ical significance of the APTT is questionable in the presence of heparin. Performed By: #### L [id number] ####[facility] ([facility])[address] [place] [address] ACTIVATED PARTIAL THROMBOPLASTIN TIME IN PPP BY COAGULATION ASSAY 79.9 Seconds High 25.0-35.0 [facility] Comment on above: Result Comment: Clin ical significance of the APTT is questionable in the presence of heparin. Performed By: #### L [id number] #### [facility] ([facility]) [address] [place] [address] CBC WITH AUTO DIFFERENTIALon 10-16-2023 Basophils (Bld) [#/Vol] 0.07 10*3/uL Normal 0.00-0.20 [facility] Comment on above: Performed By: #### L [id number] #### [facility] ([facility]) [address] [place] [address] Basophils/100 WBC (Bld) 0.9 % Normal 0.0-1.0 [facility] Comment on above: Performed By: #### L [id number] #### [facility] ([facility]) [address] [place] [address] Eosinophils (Bld) [#/Vol] 0.73 10*3/uL High 0.00-0.50 [facility] Comment on above: Performed By: #### L [id number] #### [facility] ([facility]ER) [address] [place] [address] Eosinophils/100 WBC (Bld) 9.8 % High 0.0-6.0 [facility] Comment on above: Performed By: #### L [id number] #### [facility] ([facility]ER) [address] [place] [address] Erythrocyte distribution width (RBC) [Ratio] 12.9 % Normal 11.5-15.0 [facility] Comment on above: Performed By: #### L [id number] #### [facility] ([facility]ER) [address] [place] [address] ERYTHROCYTE MEAN CORPUSCULAR HEMOGLOBIN CONCENTRATION (G/DL) BY AUTOMATED 33.7 g/dL Normal 32.0-35.0 [facility] Comment on above: Performed By: #### L [id number] #### [facility] ([facility]ER) [address] [place] [address] Hematocrit (Bld) [Volume fraction] 40.6 % Normal 39.0-55.0 [facility] Comment on above: Performed By: #### L [id number] #### [facility] (BE[facility]ER) [address] [place] [address] Hemoglobin (Bld) [Mass/Vol] 13.7 g/dL Normal 13.0-17.0 [facility] Comment on above: Performed By: #### L [id number] #### [facility] ([facility]ER) [address] [place] [address] Immature granulocytes (Bld) [#/Vol] 0.04 10*3/uL Normal 0.00-0.20 [facility] Comment on above: Performed By: #### L [id number] #### [facility] ([facility] [address] [place] [address] Immature granulocytes/100 WBC (Bld) 0.5 % Normal 0.0-1.0 [facility] Comment on above: Performed By: #### L [id number] #### [facility] ([facility]) [address] [place] [address] Lymphocytes (Bld) [#/Vol] 3.21 10*3/uL Normal 1.20-4.00 [facility] Comment on above: Performed By: #### L [id number] #### [facility] ([facility]) [address] [place] [address] Lymphocytes/100 WBC (Bld) 43.3 % Normal 20.0-45.0 [facility] Comment on above: Performed By: #### L [id number] #### [facility] ([facility]) [address] [place] [address] MCH (RBC) [Entitic mass] 33.6 pg High 27.0-33.0 [facility] Comment on above: Performed By: #### L [id number] #### [facility] [address] [place] [address] MCV (RBC) [Entitic vol] 99.5 fL High 82.0-98.0 [facility] Comment on above: Performed By: #### L [id number] #### [facility] ([facility] [address] [place] [address] Monocytes (Bld) [#/Vol] 0.81 10*3/uL Normal 0.10-1.00 [facility] Comment on above: Performed By: #### L [id number] #### [facility] (BEAKER) [address] [place] [address] Monocytes/100 WBC (Bld) 10.9 % Normal 5.0-12.0 [facility] Comment on above: Performed By: #### L [id number] #### [facility] ([facility]) [address] [place] [address] Neutrophils (Bld) [#/Vol] 2.56 10*3/uL Normal 1.60-7.60 [facility] Comment on above: Performed By: #### L [id number] #### [facility] ([facility]) [address] [place] [address] Neutrophils/100 WBC (Bld) 34.6 % Low 40.0-72.0 [facility] Comment on above: Performed By: #### L [id number] #### [facility] ([facility]) [address] [place] [address] NRBC (PER 100 WBCS) BY AUTOMATED COUNT 0.0 % Normal 0 [facility] Comment on above: Performed By: #### L [id number] #### [facility] ([facility]) [address] [place] [address] PLATELETS (10*3/UL) IN BLOOD AUTOMATED COUNT 274 10*3/uL Normal 150-400 [facility] Comment on above: Performed By: #### L [id number] #### [facility] ([facility]) [address] [place] [address] RBC (Bld) [#/Vol] 4.08 10*6/uL Low 4.20-5.70 [facility] Comment on above: Performed By: #### L [id number] #### [facility] ([facility]) [address] [place] [address] WBC (Bld) [#/Vol] 7.42 10*3/uL Normal 4.00-10.60 [facility] Comment on above: Performed By: #### L [id number] #### [facility] [address] [place] [address] CONSULTon 10-16-2023 CONSULT - Attestation signed by [...] Teaching Physician's Revisions: none Eugene Gutierrez MD CT Cardiology Cardiology Consult Note Reason for Consult: Atrial Flutter HPI: Alejandro Maradiaga is a 68 y.o. male presented emergency department as a transfer from [facility] for uncontrolled atrial flutter. Patient eventually presented to [facility] on 10/13/2020 treated with chief complaint [...] for possible cardioversion by cardiology here at [facility]. Echocardiogram revealed atrial flutter with [...] 103 16 94 % -- -- 10/15/23 172 142/62 36.5 ???C (97.7 ???F) Temporal 108 [...] is aler (more content not included)... Normal [facility] HEMOGLOBIN A1Con 10-16-2023 Glucose [Mass/Vol] 126 mg/dL Normal [facility] Comment on above: Performed By: #### L [id number] ####[facility] (BEAKER)[address] [place] [address] HbA1c (Bld) [Mass fraction] 6.0 % Normal 4.0-6.0 [facility] Comment on above: Performed By: #### L [id number] ####[facility] [facility] [address] LIPID PANELon 10-16-2023 CHOL/HDL 5.2 mg/dL Normal [facility] Comment on above: Performed By: #### L [id number] #### [facility] ([facility] [address] [place] [address] Cholesterol [Mass/Vol] 104 mg/dL Low 120-200 [facility] Comment on above: Performed By: #### L [id number] #### [facility] ([facility]) [address] [place] [address] Magnesium [Mass/Vol] 72 mg/dL Normal 40-149 [facility] Comment on above: Result Comment: TRIG LYCERIDE REFERENCE RANGE: 20 YEARS AND OLDER CARDIOVASCULAR RISK LESS THAN 150 mg/dL LOW RISK 150 TO 199 mg/dL BORDERLINE RISK 200 mg/dL AND GREATER HIGH RISK Performed By: #### L [id number] #### [facility] ([facility]) [address] [place] [address] Magnesium [Mass/Vol] 70 mg/dL Normal 0-160 [facility] Comment on above: Performed By: #### L [id number] #### [facility] ([facility]) [address] [place] [address] Magnesium [Mass/Vol] 20 mg/dL Low 23-92 [facility] Comment on above: Performed By: #### L [id number] #### [facility] ([facility]) [address] [place] [address] NON HDL CHOL. (LDL+VLDL) 84 Normal [facility] Comment on above: Performed By: #### L [id number] #### [facility] ([facility]) [address] [place] [address] TOTAL VLDL-C 14 mg/dL Normal 0-40 [facility] Comment on above: Performed By: #### L [id number] #### [facility] ([facility]) [address] [place] [address] MAGNESIUMon 10-16-2023 Magnesium [Mass/Vol] 1.9 mg/dL Normal 1.9-2.7 [facility] Comment on above: Performed By: #### L [id number] #### [facility] ([facility]) [address] [place] [address] NURSNOTEon 10-16-2023 STAN Keane, Cardiology, called sheet writer back at, no cath today, resume previous diet [facility] STAN CardiologyGonzalez, called sheet writer back and stated she called laborer operator and he is scheduled. Lead Relay Tester called cardiac cath lab radiology technologist to double check and they said they still had not heard anything regarding this pt yet and they would call Cardiology to see if they could figure out where the confusion was. Will continue to monitor. [facility] STAN Lead Relay Tester has called Cardiology ([phone]) on multiple occasions today to verify what plan was for pt due to NPO status (refer to Provider Notification charting). Lead Relay Tester had been assured multiple times that order was going to be put in for a cath request, but at time of writing, still no order has been put in. Lead Relay Tester called Cardiology again and fellow told sheet writer Yes, order is in, it is just not showing up in the system, cardiac cath lab radiology technologist is aware, thanks for calling and proceeded to hang up the phone before sheet writer could get a word out. Lead Relay Tester proceeded to call laborer operator, who told sheet writer they had not seen or heard anything regarding this patient today. As of this time, still no Cardiology note to verify plan for pt heart cath. Will continue to monitor. [facility] TROPONIN Ion 10-16-2023 Troponin I.cardiac [Mass/Vol] 0.03 ng/mL Normal 0.00-0.04 [facility] Comment on above: Performed By: #### L [id number] #### [facility] ([facility]) [address] [place] [address] 30on 10-15-2023 30 The patient is Moderately [...] and maintained or improved Outcome: Progressing Normal [facility] APTTon 10-15-2023 ACTIVATED PARTIAL THROMBOPLASTIN TIME IN PPP BY COAGULATION ASSAY 34.4 Seconds Normal 25.0-35.0 [facility] Comment on above: Result Comment: Clin ical significance of the APTT is questionable in the presence of heparin. Performed By: #### L [id number] ####[facility] ([facility])[address] [place] [address] B-TYPE NATRIURETIC PEPTIDEon 10-15-2023 Natriuretic peptide B (Bld) [Mass/Vol] 969 pg/mL High 0-100 [facility] Comment on above: Performed By: #### L [id number] ####[facility] (BEAKER)[address] [facility] [address] BASIC METABOLIC PANELon Anion gap [Moles/Vol] 12 mmol/L Normal 7-20 [facility] Comment on above: Performed By: #### L [id number] ####[facility] (BEAKER)[address] [facility] [address] Calcium [Mass/Vol] 9.2 mg/dL Normal 8.6-10.3 [facility] Comment on above: Performed By: #### L [id number] ####[facility] (BEAKER)[address] [place] [address] Chloride [Moles/Vol] 103 mmol/L Normal 98-107 [facility] Comment on above: Performed By: #### L [id number] ####[facility] (BEAKER)[address] [place] [address] CO2 [Moles/Vol] 24 mmol/L Normal 21-31 [facility] Comment on above: Performed By: #### L [id number] ####[facility] ([facility])[address] [place] [address] Creatinine [Mass/Vol] 0.63 mg/dL Low 0.70-1.30 [facility] Comment on above: Performed By: #### L [id number] ####[facility] ([facility])[address] [place] [address] GLOMERULAR FILTRATION RATE ML/MIN/1.73 SQ M.PREDICTED 103.6 mL/min/1.73m*2 Normal >60.0 [facility] Comment on above: Result Comment: The [facility]???s estimated glomerular filtration rate (eGFR) will no [...] of individuals. Performed By: #### L [id number] ####[facility] ([facility])[address] [place] [address] Glucose [Mass/Vol] 105 mg/dL High 70-100 [facility] Comment on above: Performed By: #### L [id number] ####[facility] ([facility])[address] [place] [address] Potassium [Moles/Vol] 3.5 mmol/L Normal 3.5-5.1 [facility] Comment on above: Performed By: #### L [id number] ####[facility] ([facility])[address] [place] [address] Sodium [Moles/Vol] 135 mmol/L Low 136-145 [facility] Comment on above: Performed By: #### L [id number] ####[facility] ([facility])[address] [place] [address] Urea nitrogen [Mass/Vol] 9 mg/dL Normal 7-25 [facility] Comment on above: Performed By: #### L [id number] ####[facility])[address] [place] [address] UREA NITROGEN/CREATININE (MASS RATIO) IN SER/PLAS 14.3 Normal [facility] Comment on above: Performed By: #### L [id number] ####[facility] ([facility])[address] [place] [address] CBC WITH AUTO DIFFERENTIALon 10-15-2023 Basophils (Bld) [#/Vol] 0.07 10*3/uL Normal 0.00-0.20 [facility] Comment on above: Performed By: #### L [id number] ####[facility] ([facility])[address] [place] [address] Basophils/100 WBC (Bld) 1.0 % Normal 0.0-1.0 [facility] Comment on above: Performed By: #### L [id number] ####[facility] ([facility])[address] [place] [address] Eosinophils (Bld) [#/Vol] 0.55 10*3/uL High 0.00-0.50 [facility] Comment on above: Performed By: #### L [id number] ####[facility] ([facility])[address] [place], [place] [address] Eosinophils/100 WBC (Bld) 7.7 % High 0.0-6.0 [facility] Comment on above: Performed By: #### L [id number] ####[facility] ([facility])[address] [place] [address] Erythrocyte distribution width (RBC) [Ratio] 12.9 % Normal 11.5-15.0 [facility] Comment on above: Performed By: #### L [id number] ####[facility] ([facility])[address] [place] [address] ERYTHROCYTE MEAN CORPUSCULAR HEMOGLOBIN CONCENTRATION (G/DL) BY AUTOMATED 34.2 g/dL Normal 32.0-35.0 [facility] Comment on above: Performed By: #### L [id number] ####[facility] (BEAKER)[address] [place] [address] Hematocrit (Bld) [Volume fraction] 44.8 % Normal 39.0-55.0 [facility] Comment on above: Performed By: #### L [id number] ####[facility] ([facility])[address] [place] [address] Hemoglobin (Bld) [Mass/Vol] 15.3 g/dL Normal 13.0-17.0 [facility] Comment on above: Performed By: #### L [id number] ####[facility] ([facility])[address] [place] [address] Immature granulocytes (Bld) [#/Vol] 0.04 10*3/uL Normal 0.00-0.20 [facility] Comment on above: Performed By: #### L [id number] ####[facility] ([facility])[address] [place] [address] Immature granulocytes/100 WBC (Bld) 0.6 % Normal 0.0-1.0 [facility] Comment on above: Performed By: #### L [id number] ####[facility] (BEAKER)[address] [place] [address] Lymphocytes (Bld) [#/Vol] 2.62 10*3/uL Normal 1.20-4.00 [facility] Comment on above: Performed By: #### L [id number] ####[facility] (BEAKER)[address] [place] [address] Lymphocytes/100 WBC (Bld) 36.9 % Normal 20.0-45.0 [facility] Comment on above: Performed By: #### L [id number] ####[facility] (BEAKER)[address] [place] [address] MCH (RBC) [Entitic mass] 33.6 pg High 27.0-33.0 [facility] Comment on above: Performed By: #### L [id number] ####[facility] (BEAKER)[address] [place] [address] MCV (RBC) [Entitic vol] 98.2 fL High 82.0-98.0 [facility] Comment on above: Performed By: #### L [id number] ####[facility] (BEAKER)[address] [place] [address] Monocytes (Bld) [#/Vol] 0.66 10*3/uL Normal 0.10-1.00 [facility] Comment on above: Performed By: #### L [id number] ####[facility] (BEAKER)[address] [place] [address] Monocytes/100 WBC (Bld) 9.3 % Normal 5.0-12.0 [facility] Comment on above: Performed By: #### L [id number] ####[facility] (BEAKER)[address] [place] [address] Neutrophils (Bld) [#/Vol] 3.16 10*3/uL Normal 1.60-7.60 [facility] Comment on above: Performed By: #### L [id number] ####[facility] (BEAKER)[address] [place] [address] Neutrophils/100 WBC (Bld) 44.5 % Normal 40.0-72.0 [facility] Comment on above: Performed By: #### L [id number] ####[facility] (BEAKER)[address] [place] [address] NRBC (PER 100 WBCS) BY AUTOMATED COUNT 0.0 % Normal 0 [facility] Comment on above: Performed By: #### L [id number] ####[facility] (BEAKER)[address] [place] [address] PLATELETS (10*3/UL) IN BLOOD AUTOMATED COUNT 279 10*3/uL Normal 150-400 [facility] Comment on above: Performed By: #### L [id number] ####[facility] (BEAKER)[address] [place] [address] RBC (Bld) [#/Vol] 4.56 10*6/uL Normal 4.20-5.70 [facility] Comment on above: Performed By: #### L [id number] ####[facility] ([facility])[address] [place] [address] WBC (Bld) [#/Vol] 7.10 10*3/uL Normal 4.00-10.60 [facility] Comment on above: Performed By: #### L [id number] ####[facility] ([facility])[address] [place] [address] HEPATIC FUNCTION PANELon Albumin [Mass/Vol] 4.0 g/dL Normal 3.5-5.7 [facility] Comment on above: Performed By: #### L [id number] ####[facility] ([facility])[address] [place] [address] ALP [Catalytic activity/Vol] 73 U/L Normal 34-104 [facility] Comment on above: Performed By: #### L [id number] ####[facility] ([facility])[address] [place] [address] ALT [Catalytic activity/Vol] 12 U/L Normal 7-52 [facility] Comment on above: Performed By: #### L [id number] ####[facility] ([facility])[address] [place] [address] AST [Catalytic activity/Vol] 20 U/L Normal 13-39 [facility] Comment on above: Performed By: #### L [id number] ####[facility] ([facility])[address] [place] [address] Bilirubin [Mass/Vol] 1.0 mg/dL Normal 0.3-1.0 [facility] Comment on above: Performed By: #### L [id number] ####[facility] ([facility])[address] [place] [address] Magnesium [Mass/Vol] 0.3 mg/dL High 0-0.2 [facility] Comment on above: Performed By: #### L [id number] ####[facility] ([facility])[address] [place] [address] Protein [Mass/Vol] 7.1 g/dL Normal 6.0-8.3 [facility] Comment on above: Performed By: #### L [id number] ####[facility] ([facility])[address] [place] [address] MAGNESIUMon 10-15-2023 Magnesium [Mass/Vol] 1.6 mg/dL Low 1.9-2.7 [facility] Comment on above: Performed By: #### L [id number] ####[facility] ([facility])[address] [place] [address] PROTIME-INRon 10-15-2023 INR IN PPP BY COAGULATION ASSAY 1.28 High 0.90-1.10 [facility] Comment on above: Result Comment: ACCC P [...] CHEST 1995;[id number]. Performed By: #### L [id number] ####[facility] ([employer])[address] [place] [address] PROTHROMBIN TIME (PT) IN PPP BY COAGULATION ASSAY 16.0 Seconds High 12.3-14.8 [facility] Comment on above: Performed By: #### L [id number] ####[facility] ([facility])[address] [place] [address] TROPONIN Ion 10-15-2023 Troponin I.cardiac [Mass/Vol] 0.03 ng/mL Normal 0.00-0.04 [facility] Comment on above: Performed By: #### L [id number] #### [facility] ([facility]) [address] [place] [address] TSH3 REFLEX TO FT4on 023 THYROTROPIN (MIU/L) IN SER/PLAS BY DETECTION LIMIT <= 0.05 MIU/L 3.20 mIU/L Normal 0.34-5.60 [facility] Comment on above: Performed By: #### L [id number] #### [facility] ([facility]) [address] [place] [address] URINALYSISon 10-15-2023 BILIRUBIN, TOTAL PRESENCE IN URINE Negative Normal Negative [facility] Comment on above: Performed By: #### L [id number] #### [facility] ([facility]) [address] [place] [address] Clarity (U) Clear Normal Clear [facility] Comment on above: Performed By: #### L [id number] #### [facility] ([facility]) [address] [place] [address] Color (U) Yellow Normal Yellow [facility] Comment on above: Performed By: #### L [id number] #### [facility] ([facility]) [address] [place] [address] Glucose (U) [Mass/Vol] Negative Normal Negative [facility] Comment on above: Performed By: #### L [id number] #### [facility] ([facility]) [address] [place] [address] HEMOGLOBIN PRESENCE IN URINE Large Abnormal Negative [facility] Comment on above: Performed By: #### L [id number] #### [facility] ([facility]) [address] [place] [address] Ketones Ql (U) Negative Normal Negative [facility] Comment on above: Performed By: #### L [id number] #### [facility] ([facility]) [address] [place] [address] LEUKOCYTE ESTERASE PRESENCE IN URINE BY TEST STRIP Trace Abnormal Negative [facility] Comment on above: Performed By: #### L [id number] #### [facility] ([facility]) [address] [place] [address] NITRITE PRESENCE IN URINE Negative Normal Negative [facility] Comment on above: Performed By: #### L [id number] #### [facility] ([facility]) [address] [place] [address] pH (U) 6.0 [pH] Normal 5.0-8.0 [facility] Comment on above: Performed By: #### L [id number] #### [facility] ([facility]) [address] [place] [address] Protein (U) [Mass/Vol] 30 mg/dL Abnormal Negative [facility] Comment on above: Performed By: #### L [id number] #### [facility] ([facility]) [address] [place] [address] Specific gravity (U) [Rel density] 1.015 Normal 1.015-1.020 [facility] Comment on above: Performed By: #### L [id number] #### [facility] ([facility]) [address] [place] [address] UROBILINOGEN (EU/DL) IN URINE 4.0 EU/dL Abnormal Negative [facility] Comment on above: Performed By: #### L [id number] #### [facility] ([facility]) [address] [place] [address] URINALYSIS MICROSCOPICon CASTS IN URINE Present Abnormal None Seen [facility] Comment on above: Performed By: #### L [id number] #### [facility] ([facility]) [address] [place] [address] CRYSTALS IN URINE Normal [facility] on above: Performed By: #### L [id number] #### [facility] ([facility]) [address] [place] [address] HYALINE CASTS /LPF IN URINE SEDIMENT BY MICROSCOPY 2 /LPF High <1 [facility] Comment on above: Performed By: #### L [id number] #### [facility] ([facility]) [address] [place] [address] MUCUS (#/HPF) IN URINE SEDIMENT Few Normal None Seen, Occasional, Few [facility] Comment on above: Performed By: #### L [id number] #### [facility] ([facility]) [address] [place] [address] RBC (#/HPF) IN URINE SEDIMENT >100 Abnormal None Seen [facility] Comment on above: Performed By: #### L [id number] #### [facility] ([facility]) [address] [place] [address] SQUAMOUS EPITHELIAL CELLS (#/HPF) IN URINE SEDIMENT None Seen Normal None Seen, Occasional [facility] Comment on above: Performed By: #### L [id number] #### [facility] ([facility]) [address] [place] [address] WBC (LEUKOCYTE) (#/HPF) IN URINE SEDIMENT 21-50 Abnormal None Seen [facility] Comment on above: Performed By: #### L [id number] #### [facility] ([facility]) [address] [place] [address] CBC with differential (COPC) on 01-16-2023 BASO # 0.1 K CUMM Normal 0.0-0.2 [facility] Comment on above: Order Comment: Items in this order include: Comprehensive Metabolic Panel, Lipid Panel, Free T4, PSA (Screening Medicare Only), TSH, CBC with differential, Testing Performed By: [facility] [address] [place] [address] CLIA#:[id number] Dr. Abbe Celeste, Materials Management Manager Performed By: #### C 4125, C408, C215, C47, C400, C8 #### [facility] [address] [place] [address] Basophils/100 WBC (Bld) 1.1 % Normal 0.0-3.0 [facility] Comment on above: Order Comment: Items in this order include: Comprehensive Metabolic Panel, Lipid Panel, Free T4, PSA (Screening Medicare Only), TSH, CBC with differential, Testing Performed By: [facility] [address] [place] [address] CLIA#:[id number] [address] Abbe Celeste, Materials Management Manager Performed By: #### C 4125, C408, C215, C47, C400, C8 #### [facility] [address] [place] [address] EOS # 0.7 K CUMM High 0.0-0.4 [facility] Comment on above: Order Comment: Items in this order include: Comprehensive Metabolic Panel, Lipid Panel, Free T4, PSA (Screening Medicare Only), TSH, CBC with differential, Testing Performed By: [facility] [address] [place] [address] CLIA#:[id number] [address] Abbe Celeste, Materials Management Manager Performed By: #### C 4125, C408, C215, C47, C400, C8 #### [facility] [address] [place] [address] Eosinophils/100 WBC (Bld) 9.5 % High 0.0-7.0 [facility] Comment on above: Order Comment: Items in this order include: Comprehensive Metabolic Panel, Lipid Panel, Free T4, PSA (Screening Medicare Only), TSH, CBC with differential, Testing Performed By: [facility] [address] [place] [address] CLIA#:[id number] [address] Abbe Celeste, Materials Management Manager Performed By: #### C 4125, C408, C215, C47, C400, C8 #### [facility] [address] [place] [address] Erythrocyte distribution width (RBC) [Ratio] 13.4 % Normal 11.5-15.5 [facility] Comment on above: Order Comment: Items in this order include: Comprehensive Metabolic Panel, Lipid Panel, Free T4, PSA (Screening Medicare Only), TSH, CBC with differential, Testing Performed By: [facility] [address] [place] [address] CLIA#:[id number] Dr[address] Abbe Celeste, Materials Management Manager Performed By: #### C 4125, C408, C215, C47, C400, C8 #### [facility] [address] [place] [address] Hematocrit (Bld) [Volume fraction] 45.6 % Normal 42.0-52.0 [facility] Comment on above: Order Comment: Items in this order include: Comprehensive Metabolic Panel, Lipid Panel, Free T4, PSA (Screening Medicare Only), TSH, CBC with differential, Testing Performed By: [facility] [address] [place] [address] CLIA#:[id number] Dr[address] Abbe Celeste, Materials Management Manager Performed By: #### C 4125, C408, C215, C47, C400, C8 #### [facility] [facility] [address] [place] [address] Hemoglobin (Bld) [Mass/Vol] 15.9 g/dL Normal 13.5-18.0 [facility] Comment on above: Order Comment: Items in this order include: Comprehensive Metabolic Panel, Lipid Panel, Free T4, PSA (Screening Medicare Only), TSH, CBC with differential, Testing Performed By: [facility] [address] [place] [address] CLIA#:[id number] [address] Abbe Celeste, Materials Management Manager Performed By: #### C 4125, C408, C215, C47, C400, C8 #### [facility] [address] [facility] [address] [place] [address] ImmGrn # 0.0 K CUMM Normal 0.0-0.3 [facility] Comment on above: Order Comment: Items in this order include: Comprehensive Metabolic Panel, Lipid Panel, Free T4, PSA (Screening Medicare Only), TSH, CBC with differential, Testing Performed By: [facility] [address] [place] [address] CLIA#:[id number] Dr. Abbe Celeste, Materials Management Manager Performed By: #### C 4125, C408, C215, C47, C400, C8 #### [facility] [address] [facility] [address] [place] [address] ImmGrn % 0.6 % Normal 0.0-3.0 [facility] Comment on above: Order Comment: Items in this order include: Comprehensive Metabolic Panel, Lipid Panel, Free T4, PSA (Screening Medicare Only), TSH, CBC with differential, Testing Performed By: [facility] [address] [place] [address] CLIA#:[id number] Dr. Abbe Celeste, Materials Management Manager Performed By: #### C 4125, C408, C215, C47, C400, C8 #### [facility] [address] [facility] [address] [place] [address] LYMPH # 2.7 K CUMM Normal 0.7-4.5 [facility] Comment on above: Order Comment: Items in this order include: Comprehensive Metabolic Panel, Lipid Panel, Free T4, PSA (Screening Medicare Only), TSH, CBC with differential, Testing Performed By: [facility] [address] [place] [address] CLIA#:[id number] Dr. Abbe Celeste, Materials Management Manager Performed By: #### C 4125, C408, C215, C47, C400, C8 #### [facility] [address] [facility] [address] [place] [address] Lymphocytes/100 WBC (Bld) 38.3 % Normal 14.0-46.0 [facility] Comment on above: Order Comment: Items in this order include: Comprehensive Metabolic Panel, Lipid Panel, Free T4, PSA (Screening Medicare Only), TSH, CBC with differential, Testing Performed By: [facility] [address] [place] [address] CLIA#:[id number] [address] Abbe Celeste, Materials Management Manager Performed By: #### C 4125, C408, C215, C47, C400, C8 #### [facility] [address] [facility] [address] [place] [address] MCH (RBC) [Entitic mass] 37.6 pg High 27.0-31.0 [facility] Comment on above: Order Comment: Items in this order include: Comprehensive Metabolic Panel, Lipid Panel, Free T4, PSA (Screening Medicare Only), TSH, CBC with differential, Testing Performed By: [facility] [address] [place] [address] CLIA#:[id number] [address] Abbe Celeste, Materials Management Manager Performed By: #### C 4125, C408, C215, C47, C400, C8 #### [facility] [address] [facility] [address] [place] [address] MCHC (RBC) [Mass/Vol] 34.9 g/dL Normal 32.0-36.0 [facility] Comment on above: Order Comment: Items in this order include: Comprehensive Metabolic Panel, Lipid Panel, Free T4, PSA (Screening Medicare Only), TSH, CBC with differential, Testing Performed By: [facility] [address] [place] [address] CLIA#:[id number] [address] Abbe Celeste, Materials Management Manager Performed By: #### C 4125, C408, C215, C47, C400, C8 #### [facility] [address] [place] [address] MCV (RBC) [Entitic vol] 107.8 fL High 78.0-100.0 [facility] Comment on above: Order Comment: Items in this order include: Comprehensive Metabolic Panel, Lipid Panel, Free T4, PSA (Screening Medicare Only), TSH, CBC with differential, Testing Performed By: [facility] [address] [place] [address] CLIA#:[id number] [address] Abbe Celeste, Materials Management Manager Performed By: #### C 4125, C408, C215, C47, C400, C8 #### [facility] [address] [facility] [address] [place] [address] MONO # 0.7 K CUMM Normal 0.1-1.0 [facility] Comment on above: Order Comment: Items in this order include: Comprehensive Metabolic Panel, Lipid Panel, Free T4, PSA (Screening Medicare Only), TSH, CBC with differential, Testing Performed By: [facility] [address] [place] [address] CLIA#:[id number] Dr. Abbe Celeste, Materials Management Manager Performed By: #### C 4125, C408, C215, C47, C400, C8 #### [facility] [address] [facility] [address] [place] [address] Monocytes/100 WBC (Bld) 9.6 % Normal 4.0-13.0 [facility] Comment on above: Order Comment: Items in this order include: Comprehensive Metabolic Panel, Lipid Panel, Free T4, PSA (Screening Medicare Only), TSH, CBC with differential, Testing Performed By: [facility] [address] [place] [address] CLIA#:[id number] [address]. Abbe Celeste, Materials Management Manager Performed By: #### C 4125, C408, C215, C47, C400, C8 #### [facility] [address] [facility] [address] [place] [address] DANIEL # 2.9 K CUMM Normal 1.8-7.8 [facility] Comment on above: Order Comment: Items in this order include: Comprehensive Metabolic Panel, Lipid Panel, Free T4, PSA (Screening Medicare Only), TSH, CBC with differential, Testing Performed By: [facility] [address] [place] [address] CLIA#:[id number] Dr. Abbe Celeste, Materials Management Manager Performed By: #### C 4125, C408, C215, C47, C400, C8 #### [facility] [address] [facility] [address] [place] [address] Neutrophils/100 WBC (Bld) 40.9 % Normal 40.0-74.0 [facility] Comment on above: Order Comment: Items in this order include: Comprehensive Metabolic Panel, Lipid Panel, Free T4, PSA (Screening Medicare Only), TSH, CBC with differential, Testing Performed By: [facility] [address] [place] [address] CLIA#:[id number] Dr. Abbe Celeste, Materials Management Manager Performed By: #### C 4125, C408, C215, C47, C400, C8 #### [facility] [address] [facility] [place] [address] [place] [address] Platelet mean volume (Bld) [Entitic vol] 11.0 fL Normal 8.9-12.6 [facility] Comment on above: Order Comment: Items in this order include: Comprehensive Metabolic Panel, Lipid Panel, Free T4, PSA (Screening Medicare Only), TSH, CBC with differential, Testing Performed By: [facility] [address] [place] [address] CLIA#:[id number] [address] Abbe Celeste, Materials Management Manager Performed By: #### C 4125, C408, C215, C47, C400, C8 #### [facility] [address] [facility] [address] [place] [address] PLT 276 K CUMM Normal 130-400 [facility] Comment on above: Order Comment: Items in this order include: Comprehensive Metabolic Panel, Lipid Panel, Free T4, PSA (Screening Medicare Only), TSH, CBC with differential, Testing Performed By: [facility] [address] [place] [address] CLIA#:[id number] [address] Abbe Celeste, Materials Management Manager Performed By: #### C 4125, C408, C215, C47, C400, C8 #### [facility] [address] [facility] [address] [place] [address] RBC 4.23 M CUMM Normal 4.20-5.80 [facility] Comment on above: Order Comment: Items in this order include: Comprehensive Metabolic Panel, Lipid Panel, Free T4, PSA (Screening Medicare Only), TSH, CBC with differential, Testing Performed By: [facility] [address] [place] [address] CLIA#:[id number] Dr. Abbe Celeste, Materials Management Manager Performed By: #### C 4125, C408, C215, C47, C400, C8 #### [facility] [address] [facility] [address] [place] [address] WBC 7.1 K CUMM Normal 3.8-10.6 [facility] Comment on above: Order Comment: Items in this order include: Comprehensive Metabolic Panel, Lipid Panel, Free T4, PSA (Screening Medicare Only), TSH, CBC with differential, Testing Performed By: [facility] [address] [place] [address] CLIA#:[id number] [address] Abbe Celeste, Materials Management Manager Performed By: #### C 4125, C408, C215, C47, C400, C8 #### [facility] [address] [facility] [address] [place] [address] Comprehensive Metabolic Pane l (COPC)on 01-16-2023 Albumin [Mass/Vol] 4.5 g/dL Normal 3.2-4.8 [facility] Comment on above: Order Comment: Items in this order include: Comprehensive Metabolic Panel, Lipid Panel, Free T4, PSA (Screening Medicare Only), TSH, CBC with differential, Testing Performed By: [facility] [address] [place] [address] CLIA#:[id number] Dr. Abbe Celeste, Materials Management Manager Performed By: #### C 4125, C408, C215, C47, C400, C8 #### [facility] [address] [facility] [address] [place] [address] Albumin/Globulin [Mass ratio] 1.6 {ratio} Normal 1.3-2.1 [facility] Comment on above: Order Comment: Items in this order include: Comprehensive Metabolic Panel, Lipid Panel, Free T4, PSA (Screening Medicare Only), TSH, CBC with differential, Testing Performed By: [facility] [address] [place] [address] CLIA#:[id number] Dr. Abbe Celeste, Materials Management Manager Performed By: #### C 4125, C408, C215, C47, C400, C8 #### [facility] [address] [place] [address] Alk Phos 82 U/L Normal 40-127 [facility] Comment on above: Order Comment: Items in this order include: Comprehensive Metabolic Panel, Lipid Panel, Free T4, PSA (Screening Medicare Only), TSH, CBC with differential, Testing Performed By: [facility] [address] [place] [address] CLIA#:[id number] [address] Abbe Celeste, Materials Management Manager Performed By: #### C 4125, C408, C215, C47, C400, C8 #### [facility] [address] [place] [address] ALT [Catalytic activity/Vol] 72 U/L High 10-49 [facility] Comment on above: Order Comment: Items in this order include: Comprehensive Metabolic Panel, Lipid Panel, Free T4, PSA (Screening Medicare Only), TSH, CBC with differential, Testing Performed By: [facility] [address] [place] [address] CLIA#:[id number] [address] Abbe Celeste, Materials Management Manager Performed By: #### C 4125, C408, C215, C47, C400, C8 #### [facility] [address] [place] [address] AST [Catalytic activity/Vol] 63 U/L High <34 [facility] Comment on above: Order Comment: Items in this order include: Comprehensive Metabolic Panel, Lipid Panel, Free T4, PSA (Screening Medicare Only), TSH, CBC with differential, Testing Performed By: [facility] [address] [place] [address] CLIA#:[id number] Dr. Abbe Celeste, Materials Management Manager Performed By: #### C 4125, C408, C215, C47, C400, C8 #### [facility] [address] [facility] [address] [place] [address] B/C Ratio 15.0 Ratio Normal 10.0-28.6 [facility] Comment on above: Order Comment: Items in this order include: Comprehensive Metabolic Panel, Lipid Panel, Free T4, PSA (Screening Medicare Only), TSH, CBC with differential, Testing Performed By: [facility] [address] [place] [address] CLIA#:[id number] [address] Abbe Celeste, Materials Management Manager Performed By: #### C 4125, C408, C215, C47, C400, C8 #### [facility] [address] [facility] [address] [place] [address] Bilirubin [Mass/Vol] 1.3 mg/dL High 0.3-1.2 [facility] Comment on above: Order Comment: Items in this order include: Comprehensive Metabolic Panel, Lipid Panel, Free T4, PSA (Screening Medicare Only), TSH, CBC with differential, Testing Performed By: [facility] [address] [place] [address] CLIA#:[id number] [address] Abbe Celeste, Materials Management Manager Performed By: #### C 4125, C408, C215, C47, C400, C8 #### [facility] [address] [place] [address] [place] [address] Calcium [Mass/Vol] 9.8 mg/dL Normal 8.3-10.6 [facility] Comment on above: Order Comment: Items in this order include: Comprehensive Metabolic Panel, Lipid Panel, Free T4, PSA (Screening Medicare Only), TSH, CBC with differential, Testing Performed By: [facility] [address] [place] [address] CLIA#:[id number] Dr. Abbe Celeste, Materials Management Manager Performed By: #### C 4125, C408, C215, C47, C400, C8 #### [facility] [address] [facility] [address] [place] [address] Chloride [Moles/Vol] 103 mmol/L Normal 98-107 [facility] Comment on above: Order Comment: Items in this order include: Comprehensive Metabolic Panel, Lipid Panel, Free T4, PSA (Screening Medicare Only), TSH, CBC with differential, Testing Performed By: [facility] [address] [place] [address] CLIA#:[id number] [address] Abbe Celeste, Materials Management Manager Performed By: #### C 4125, C408, C215, C47, C400, C8 #### [facility] [address] [facility] [address] [place] [address] CO2 [Moles/Vol] 25 mmol/L Normal 20-31 [facility] Comment on above: Order Comment: Items in this order include: Comprehensive Metabolic Panel, Lipid Panel, Free T4, PSA (Screening Medicare Only), TSH, CBC with differential, Testing Performed By: [facility] [address] [place] [address] CLIA#:[id number] [address] Abbe Celeste, Materials Management Manager Performed By: #### C 4125, C408, C215, C47, C400, C8 #### [facility] [address] [facility] [address] [place] [address] Creatinine [Mass/Vol] 0.8 mg/dL Normal 0.7-1.3 [facility] Comment on above: Order Comment: Items in this order include: Comprehensive Metabolic Panel, Lipid Panel, Free T4, PSA (Screening Medicare Only), TSH, CBC with differential, Testing Performed By: [facility] [address] [place] [address] CLIA#:[id number] [address] Abbe Celeste, Materials Management Manager Performed By: #### C 4125, C408, C215, C47, C400, C8 #### [facility] [address] [facility] [address] [place] [address] GFRCKD 97 mL/min per 1.73 Normal >60 [facility] Comment on above: Order Comment: Items in this order include: Comprehensive Metabolic Panel, Lipid Panel, Free T4, PSA (Screening Medicare Only), TSH, CBC with differential, Testing Performed By: [facility] [address] [place] [address] CLIA#:[id number] [address] Abbe Celeste, Materials Management Manager Result Comment: The GFR estimate is not adjusted for race. Performed By: #### C 4125, C408, C215, C47, C400, C8 #### [facility] [address] [facility] [address] [place] [address] Globulin (S) [Mass/Vol] 2.8 g/dL Normal [facility] Comment on above: Order Comment: Items in this order include: Comprehensive Metabolic Panel, Lipid Panel, Free T4, PSA (Screening Medicare Only), TSH, CBC with differential, Testing Performed By: [facility] [address] [place] [address] CLIA#:[id number] [address] Abbe Celeste, Materials Management Manager Performed By: #### C 4125, C408, C215, C47, C400, C8 #### [facility] [address] [facility] [address] [place] [address] Glucose [Mass/Vol] 101 mg/dL Normal 74-106 [facility] Comment on above: Order Comment: Items in this order include: Comprehensive Metabolic Panel, Lipid Panel, Free T4, PSA (Screening Medicare Only), TSH, CBC with differential, Testing Performed By: [facility] [address] [place] [address] CLIA#:[id number] Dr. Abbe Celeste, Materials Management Manager Performed By: #### C 4125, C408, C215, C47, C400, C8 #### [facility] [address] [facility] [address] [place] [address] Potassium [Moles/Vol] 4.2 mmol/L Normal 3.5-5.1 [facility] Comment on above: Order Comment: Items in this order include: Comprehensive Metabolic Panel, Lipid Panel, Free T4, PSA (Screening Medicare Only), TSH, CBC with differential, Testing Performed By: [facility] [address] [place] [address] CLIA#:[id number] [address] Abbe Celeste, Materials Management Manager Performed By: #### C 4125, C408, C215, C47, C400, C8 #### [facility] [address] [place] [address] Protein [Mass/Vol] 7.3 g/dL Normal 5.7-8.2 [facility] Comment on above: Order Comment: Items in this order include: Comprehensive Metabolic Panel, Lipid Panel, Free T4, PSA (Screening Medicare Only), TSH, CBC with differential, Testing Performed By: [facility] [address] [place] [address] CLIA#:[id number] [address] Abbe Celeste, Materials Management Manager Performed By: #### C 4125, C408, C215, C47, C400, C8 #### [facility] [address] [place] [address] Sodium [Moles/Vol] 138 mmol/L Normal 136-145 [facility] Comment on above: Order Comment: Items in this order include: Comprehensive Metabolic Panel, Lipid Panel, Free T4, PSA (Screening Medicare Only), TSH, CBC with differential, Testing Performed By: [facility] [address] [place] [address] CLIA#:[id number] [address] Abbe Celeste, Materials Management Manager Performed By: #### C 4125, C408, C215, C47, C400, C8 #### [facility] [address] [place] [address] Urea nitrogen [Mass/Vol] 12 mg/dL Normal 9-23 [facility] Comment on above: Order Comment: Items in this order include: Comprehensive Metabolic Panel, Lipid Panel, Free T4, PSA (Screening Medicare Only), TSH, CBC with differential, Testing Performed By: [facility] [address] [place] [address] CLIA#:[id number] [address] Abbe Celeste, Materials Management Manager Performed By: #### C 4125, C408, C215, C47, C400, C8 #### [facility] [address] [facility] [address] [place] [address] Free T4 (COPC)on 01-16-2023 Free T4 [Mass/Vol] 0.9 ng/dL Normal 0.9-1.8 [facility] Comment on above: Performed By: #### C 4125, C408, C215, C47, C400, C8 #### [facility] [address] [facility] [address] [place] [address] Lipid Panel (COPC)on 023 Cholesterol [Mass/Vol] 145 mg/dL Normal <200 [facility] Comment on above: Result Comment: Low- risk levels (desirable) < 200 mg/dL Moderate-risk levels (borderline) 200 to 239 mg/dL High-risk levels > or = 240 mg/dL Performed By: #### C 4125, C408, C215, C47, C400, C8 #### [facility] [address] [facility] [address] [place] [address] Cholesterol in HDL [Mass/Vol] 46 mg/dL Low >60 [facility] Comment on above: Performed By: #### C 4125, C408, C215, C47, C400, C8 #### [facility] [address] [facility] [address] [place] [address] Cholesterol in LDL [Mass/Vol] 88 mg/dL Normal <130 [facility] Comment on above: Performed By: #### C 4125, C408, C215, C47, C400, C8 #### [facility] [address] [facility] [address] [place] [address] Cholesterol.total/Ch olesterol in HDL [Mass ratio] 3.2 {ratio} Normal <4.0 [facility] Comment on above: Performed By: #### C 4125, C408, C215, C47, C400, C8 #### [facility] [address] [facility] [address] [place] [address] Non-HDL Chol 99 Normal LDL Goal + 30 [facility] Comment on above: Result Comment: LDL and Non-HDL goal dependent upon individual risk Performed By: #### C 4125, C408, C215, C47, C400, C8 #### [facility] [address] [facility] [address] [place] [address] Triglyceride [Mass/Vol] 55 mg/dL Normal <150 [facility] Comment on above: Performed By: #### C 4125, C408, C215, C47, C400, C8 #### [facility] [address] [facility] [address] [place] [id number] VLDL-Calc 11 mg/dl Normal <30 [facility] Comment on above: Performed By: #### C 4125, C408, C215, C47, C400, C8 #### [facility] [address] [facility] [address] [place] [address] PSA (Screening Medicare Only ) ([facility])on 01-16-2023 SCRPSA 0.49 ng/mL Normal 0.00-4.00 [facility] Comment on above: Performed By: #### C 4125, C408, C215, C47, C400, C8 #### [facility] [address] [facility] [address] [place] [address] TSH ([facility])on 01-16-2023 TSH 2.462 MIU/mL Normal 0.550-4.780 [facility] Comment on above: Performed By: #### C 4125, C408, C215, C47, C400, C8 #### [facility] [address] [facility] [place] [address] [place] [address] CT LUNG SCREENINGon 11-18-[address] LUNG [...] Self Edit Transcribed Date: 11/18/2022 14:11 Normal [facility] Basic Metabolic Panel [facility] 07-12-2021 Calcium [Mass/Vol] 9.5 mg/dL Normal 8.9-10.3 [facility] Comment on above: Performed By: #### C [id number] #### [facility] Chloride [Moles/Vol] 102 mmol/L Normal 98-107 [facility] Comment on above: Performed By: #### C [id number] #### [facility] CO2 [Moles/Vol] 25 mmol/L Normal 22-32 [facility] Comment on above: Performed By: #### C [id number] #### [facility] Creatinine [Mass/Vol] 0.7 mg/dL Normal 0.6-1.3 [facility] [facility] Comment on above: Performed By: #### C [id number] #### [facility] POINT OF CARE GFR/1.73 sq M.predicted (S/P/Bld) [Vol rate/Area] mL/min Normal [facility] Comment on above: Performed By: #### C [id number] #### [facility] POINT OF CARE Glucose [Mass/Vol] 185 mg/dL High 70-99 [facility] Comment on above: Performed By: #### C [id number] #### [facility] POINT OF CARE Potassium post dialysis [Moles/Vol] 4.0 mMol/L Normal 3.6-5.1 [facility] Comment on above: Performed By: #### C [id number] #### [facility] POINT OF CARE Sodium [Moles/Vol] 139 mmol/L Normal 136-145 [facility] Comment on above: Performed By: #### C [id number] #### [facility] POINT OF CARE Urea nitrogen [Mass/Vol] 8 mg/dL Normal 8-20 [facility] Comment on above: Performed By: #### C [id number] #### [facility] POINT OF CARE Blood Gas POCT VBG Blanquita ohara (Uploaded)on 07-12-2021 Calcium.ionized (Bld) [Mass/Vol] 1.20 mMol/L Normal 1.12-1.32 [facility] Comment on above: Performed By: #### 2 4339-4x4 #### POINT OF CARE Carboxyhemoglobin (Bld) [Mass fraction] 2.9 % Normal [facility] Comment on above: Result Comment: NON SMOKERS <1.5% SMOKERS 1.5 - 9.0% Performed By: #### 2 4339-4x4 #### POINT OF CARE Chemistry studies (set) 21.0 % Normal [facility] Comment on above: Performed By: #### 2 4339-4x4 #### POINT OF CARE Chloride [Moles/Vol] 105 mmol/L Normal 98-106 [facility] Comment on above: Performed By: #### 2 4339-4x4 #### POINT OF CARE Glucose [Mass/Vol] 182 mg/dL High 70-110 [facility] Comment on above: Performed By: #### 2 4339-4x4 #### POINT OF CARE Hemoglobin (Bld) [Mass/Vol] 16.4 g/dL Normal 13.5-17.5 [facility] Comment on above: Performed By: #### 2 4339-4x4 #### POINT OF CARE Lactate [Moles/Vol] 1.1 mmol/L Normal 0.5-2.2 [facility] Comment on above: Performed By: #### 2 4339-4x4 #### POINT OF CARE Methemoglobin (Bld) [Mass fraction] % Normal 0.2-0.6 [facility] Comment on above: Performed By: #### 2 4339-4x4 #### POINT OF CARE Oxygen (BldCoV) [Partial pressure] 52 mmHg High 25-40 [facility] Comment on above: Performed By: #### 2 4339-4x4 #### POINT OF CARE Oxyhemoglobin (Bld) [Mass fraction] 86.9 % High 40.0-70.0 [facility] Comment on above: Performed By: #### 2 4339-4x4 #### POINT OF CARE pCO2 Venous POCT 38 mmHg Low 41-51 [facility] Comment on above: Performed By: #### 2 4339-4x4 #### POINT OF CARE pH Venous POCT 7.43 High 7.31-7.41 [facility] Comment on above: Performed By: #### 2 4339-4x4 #### POINT OF CARE Potassium post dialysis [Moles/Vol] 3.8 mEq/L Normal 3.5-5.0 [facility] Comment on above: Performed By: #### 2 4339-4x4 #### POINT OF CARE SaO2% (BldCoV) [Mass fraction] 90.0 % High 40.0-70.0 [facility] Comment on above: Performed By: #### 2 4339-4x4 #### POINT OF CARE Sodium [Moles/Vol] 140 mmol/L Normal 136-146 [facility] Comment on above: Performed By: #### 2 4339-4x4 #### POINT OF CARE CBC POCTon 07-12-2021 Erythrocyte distribution width (RBC) [Entitic vol] 13.5 % Normal 11.0-16.3 [facility] Comment on above: Performed By: #### C [id number] #### [facility] POINT OF CARE Hematocrit (BldA) [Volume fraction] 47.1 % Normal 31.1-57.4 [facility] Comment on above: Performed By: #### C [id number] #### [facility] POINT OF CARE Hemoglobin (Bld) [Mass/Vol] 16.7 g/dL Normal 10.5-17.8 [facility] Comment on above: Performed By: #### C D:[id number] #### [facility] POINT OF CARE Lymphocytes (Bld) [#/Vol] 1.7 thou/mcL Normal 1.0-4.8 [facility] Comment on above: Performed By: #### C D:[id number] #### [facility] POINT OF CARE Lymphocytes/100 WBC (Bld) 16.4 % Low 25.0-57.0 [facility] Comment on above: Performed By: #### C [id number] #### [facility] POINT OF CARE MCH (RBC) [Entitic mass] 37.3 Picograms High 27.4-35.7 [facility] Comment on above: Performed By: #### C D:[id number] #### [facility] POINT OF CARE MCHC (RBC) [Mass/Vol] 35.5 g/dL Normal 32.7-36.7 [facility] Comment on above: Performed By: #### C D:[id number] #### [facility] POINT OF CARE MCV (RBC) [Entitic vol] 105.1 fL High 82.5-102.0 [facility] Comment on above: Performed By: #### C [id number] #### [facility] POINT OF CARE Neutrophils (Bld) [#/Vol] 8.0 thou/mcL High 1.8-7.7 [facility] Comment on above: Performed By: #### C [id number] #### [facility] POINT OF CARE Neutrophils/100 WBC (Bld) 77.9 % High 37.0-75.0 [facility] Comment on above: Performed By: #### C [id number] #### [facility] POINT OF CARE Platelet mean volume (Bld) [Entitic vol] 10.4 fL Normal 8.5-13.5 [facility] Comment on above: Performed By: #### C D:[id number] #### [facility] POINT OF CARE Platelets (Bld) [#/Vol] 267 thou/mcL Normal 166-400 [facility] Comment on above: Performed By: #### C [id number] #### [facility] POINT OF CARE RBC (Bld) [#/Vol] 4.48 million/mcL Normal 3.30-6.06 [facility] Comment on above: Performed By: #### C [id number] #### [facility] POINT OF CARE WBC (Bld) [#/Vol] 10.3 thou/mcL Normal 5.2-17.1 [facility] Comment on above: Performed By: #### C [id number] #### [facility] POINT OF CARE WBC other (Bld) [#/Vol] 0.6 thou/mcL Normal 0.1-1.3 [facility] Comment on above: Performed By: #### C [id number] #### [facility] POINT OF CARE WBC other/100 WBC (Bld) 5.7 % Normal 1.2-11.4 [facility] Comment on above: Performed By: #### C D:[id number] #### [facility] POINT OF CARE Coronavirus (COVID-19/SARS-C oV-2) [facility] 07-12-2021 SARS-CoV-2 (COVID-19) RdRp gene RANDY+probe Ql (Resp) Not detected Normal [facility] Comment on above: Result Comment: This test was performed via the [employer] COVID-19 assay and has been authorized by FDA under an Emergency Use Authorization (EUA). The assay is validated for nasopharyngeal (MANAGEMENT TRAINEE PROGRAM STORES), nasal, and oropharyngeal (OP) direct swabs. The [...] 4534-5 #### [facility] POINT OF CARE D-Dimer [facility] 07-12-2021 Fibrin D-dimer Qn (PPP) 339 mcg/mL Normal 0-400 [facility] Comment on above: Performed By: #### C [id number] #### [facility] POINT OF CARE ED Pat Eduon 07-12-2021 ED Pat [facility] [address] [id number] [phone] Emergency Department Discharge Instructions ALEJANDRO MARADIAGA, Please provide this information to your Primary Care/Specialist Name: ALEJANDRO MARADIAGA Current Date : 07/12/2021 09:45:39 : 1955 Primary Care Physician: Elle Cortes MD Diagnosis : COPD exacerbation; Pneumonia Follow-Up Instructions: ALEJANDRO MARADIAGA has been given these follow-up instructions: FOLLOW-UP APPOINTMENTS: Provider: Specialty: Address: Date: Elle Cortes MD Internal Medicine [address] [address] [place] [address] (1) Comment: Call for an Appointment Laboratory [...] [facility] Name ALEJANDRO MARADIAGA MRN (COL)-[id number] PLEASE READ THE FOLLOWING REGARDING YOUR MEDICATIONS [...] doses are changed, or new medications (including auge-mns-tdxwpnb products) are added. If you have any [...] your F (more content not included)... Normal [facility] Hepatic Function Panel POCTo n 07-12-2021 Albumin [Mass/Vol] 4.3 g/dL Normal 3.5-4.8 [facility] Comment on above: Performed By: #### C [id number] #### [facility] POINT OF CARE ALP (S/P/Bld) [Catalytic activity/Vol] 94 Units/L High 32-91 [facility] Comment on above: Performed By: #### C [id number] #### [facility] POINT OF CARE ALT/Aspartate aminotransferase [Catalytic ratio] 88 Units/L High 7-52 [facility] Comment on above: Performed By: #### C [id number] #### [facility] POINT OF CARE Amylase [Catalytic activity/Vol] 38 Units/L Normal 26-100 [facility] Comment on above: Performed By: #### C [id number] #### [facility] POINT OF CARE AST [Catalytic activity/Vol] 70 Units/L High 15-41 [facility] Comment on above: Performed By: #### C D:[id number] #### [facility] POINT OF CARE Bilirubin [Mass/Vol] 1.2 mg/dL Normal 0.3-1.2 [facility] Comment on above: Performed By: #### C D:[id number] #### [facility] POINT OF CARE Gamma glutamyl transferase [Catalytic activity/Vol] 293 Units/L High 7-50 [facility] Comment on above: Performed By: #### C D:[id number] #### [facility] POINT OF CARE Protein [Mass/Vol] 8.0 g/dL High 6.1-7.9 [facility] Comment on above: Performed By: #### C [id number] #### [facility] POINT OF CARE Troponin I POCT [place] 0 Troponin I.cardiac [Mass/Vol] 0.00 ng/mL Normal <0.08 [facility] Comment on above: Performed By: #### 4 [...] Mild right midlung opacity suspicious for infiltrate. [facility] thanks you for the opportunity to care for your patient. Workstation ID: [id number] FINAL REPORT Dictated By: Kodi Mohan MD 07/12/2021 07:12 Assigned Physician: Kodi Mohan MD Reviewed and Electronically Signed By: Kodi Mohan MD 07/12/2021 07:14 Transcribed by: [facility] 07/12/2021 07:12 Technologist: ERIBERTO Ernst [facility] XR Chest 2 Viewson XR Chest 2 Views EXAMINATION TYPE: XR Chest 2 Views DATE OF EXAM : 05/08/2021 8:15 AM HISTORY: Chronic obstructive pulmonary disease, unspecified FINDINGS: There is a comparison 06/08/2019. Heart is stable in size. The lungs are expanded and clear. There is no pleural effusion. Pulmonary vascularity is normal. There are changes of emphysema. IMPRESSION: No acute cardiopulmonary disease [facility] thanks you for the opportunity to care for your patient. Workstation ID: [id number] FINAL REPORT Dictated By: Lisa Parrish MD 05/08/2021 08:29 Assigned Physician: Lisa Parrish MD Reviewed and Electronically Signed By: Lisa Parrish MD 05/08/2021 08:29 Transcribed by: [facility] 05/08/2021 08:29 Technologist: ZAID Ernst [facility] Vital Signs Date Time Vital Sign Value Performing Clinician Facility 10-24-2023 10:30-0500 Body height 175.26 cm Shanell Craig Other [facility] 10-24-2023 10:30-0500 Body mass index (BMI) [Ratio] 23.03 kg/m2 Shanell Craig Other [facility] 10-24-2023 10:30-0500 Body weight 70.76 kg Shanell Craig Other [facility] Other 10-24-2023 10:30-0500 Diastolic blood pressure 71 mm[Hg] Shanell Craig Other [facility] Other 10-24-2023 10:30-0500 SaO2% (BldA) [Mass fraction] 97 % Shanell Craig Other [facility] Other 10-24-2023 10:30-0500 Systolic blood pressure 118 mm[Hg] Shanell Craig Other [facility] 09-01-2023 08:30-0400 Body height 175.26 cm Irma Ontiveros Other [facility] Other 09-01-2023 08:30-0400 Body mass index (BMI) [Ratio] 24.81 kg/m2 Irma Ontiveros Other [facility] Other 09-01-2023 08:30-0400 Body temperature 97.2 [degF] Irma Ontiveros Other [facility] Other 09-01-2023 08:30-0400 Body weight 76.2 kg Irma Ontiveros Other [facility] Other 09-01-2023 08:30-0400 Diastolic blood pressure 82 mm[Hg] Irma Ontiveros Other [facility] Other 09-01-2023 08:30-0400 Respiratory rate 20 /min Irma Ontiveros Other [facility] Other 09-01-2023 08:30-0400 SaO2% (BldA) [Mass fraction] 98 % Irma Ontiveros Other [facility] Other 09-01-2023 08:30-0400 Systolic blood pressure 120 mm[Hg] Irma Ontiveros Other [facility] Other 06-20-2023 08:30-0400 Body height 172.72 cm Shanell Craig Other [facility] Other 06-20-2023 08:30-0400 Body mass index (BMI) [Ratio] 27.06 kg/m2 Shanell Craig Other [facility] Other 06-20-2023 08:30-0400 Body weight 80.74 kg Shanell Craig Other [facility] Other 06-20-2023 08:30-0400 Diastolic blood pressure 72 mm[Hg] Shanell Craig Other [facility] Other 06-20-2023 08:30-0400 Systolic blood pressure 133 mm[Hg] Shanell Craig Other [facility] Other 11-14-2022 10:36-0500 Body height 180.3 cm Rhonda Kaiser MD Work Phone: [employer] 11-14-2022 10:36-0500 Body mass index (BMI) [Ratio] 24.23 kg/m2 Rhonda Kaiser MD Work Phone: [employer] 11-14-2022 10:36-0500 Body temperature 97.59 [degF] Rhonda Kaiser MD Work Phone: [employer] 11-14-2022 10:36-0500 Body weight 78.79 kg Rhonda Kaiser MD Work Phone: [employer] 11-14-2022 10:36-0500 Diastolic blood pressure 80 mm[Hg] Rhonda Kaiser MD Work Phone: [employer] 11-14-2022 10:36-0500 Heart rate 75 /min Rhonda Kaiser MD Work Phone: [employer] 11-14-2022 10:36-0500 Respiratory rate 16 /min Rhonda Kaiser MD Work Phone: [employer] 11-14-2022 10:36-0500 SaO2% (BldA) [Mass fraction] 96 % Rhonda Kaiser MD Work Phone: [employer] Comment on above: ra/rest 11-14-2022 10:36-0500 Systolic blood pressure 168 mm[Hg] Rhonda Kaiser MD Work Phone: [employer] Encounters Encounter Date Encounter Type Care Provider Facility Start: 12-16-2023 End: 12-16-2023 ambulatory ABEL REGINALD [facility] Start: 12-01-2023 End: 12-01-2023 ambulatory Tima Osorio Other [facility] Other Start: 12-01-2023 Telephone encounter Tima barrientos [facility] Start: 11-27-2023 End: 11-27-2023 ambulatory Shanell Craig Facility:[facility] Start: 11-04-2023 End: 11-04-2023 ambulatory Shanell Craig Other [facility] Other Start: 11-04-2023 Telephone encounter Shanell Craig [facility] Start: 10-24-2023 End: 10-24-2023 ambulatory Shanell Craig [facility] Other Start: 10-24-2023 Office outpatient visit 25 minutes Shaenll Craig [facility] Start: 10-24-2023 Telephone encounter Shanell Craig [facility] Start: 10-22-2023 Telephone encounter Irma Rosiericardo [facility] Start: 10-22-2023 End: 10-22-2023 ambulatory LALIT EGAN [facility] [employer] Other Start: 10-18-2023 Evaluation and management of inpatient [facility] Start: 10-17-2023 Evaluation and management of inpatient [facility] Start: 10-17-2023 Evaluation and management of inpatient [facility] Start: 10-16-2023 Evaluation and management of inpatient [facility] Start: 10-16-2023 Evaluation and management of inpatient [facility] Start: 10-15-2023 Evaluation and management of inpatient ELVIRA Rain ARNOLDMELISSA [facility] Start: 10-15-2023 End: 10-18-2023 Evaluation and management of inpatient SHAIKH FAYNahidROBE [facility] Start: 09-01-2023 End: 09-01-2023 ambulatory Kamdarinel Velezricardo Other [facility] Other Start: 09-01-2023 Office outpatient ne w 45 minutes Kamal Chaban [facility] Start: 08-25-2023 End: 08-25-2023 ambulatory Shanell Craig Other [facility] Other Start: 08-25-2023 Telephone encounter Shanell Craig [facility] Start: 07-08-2023 End: 07-08-2023 ambulatory Shanell Craig Other [facility] Other Start: 07-08-2023 Telephone encounter Shanell Kiara [facility] Start: 06-20-2023 End: 06-20-2023 ambulatory Shanell Kiara [facility] Other Start: 06-20-2023 Office outpatient ne w 30 minutes Shanell Kiara [facility] Start: 03-03-2023 ambulatory AVA GODFREY [facility] Start: 11-25-2022 End: 11-25-2022 ambulatory JENNI NOBLET JENNI [facility] Start: 11-25-2022 End: 11-25-2022 ambulatory Jenni Noblet PT [facility] [place] Comment on above: Spondylosis without myelopathy or radiculopathy, cervical region (Primary Dx); Neck pain; Cervicalgia; Chronic left shoulder pain; Left shoulder pain, unspecified chronicity Start: 11-25-2022 End: 11-25-2022 Treatment Jenni Noblet PT [facility] [place] Start: 11-20-2022 End: 11-20-2022 ambulatory [facility] [place] Comment on above: Spondylosis without myelopathy or radiculopathy, cervical region (Primary Dx); Neck pain; Cervicalgia; Chronic left shoulder pain; Left shoulder pain, unspecified chronicity Start: 11-20-2022 End: 11-20-2022 Treatment Jenni Noblet PT [facility] [place] Start: 11-18-2022 End: 11-18-2022 ambulatory Jenni Noblet PT [facility] [place] Comment on above: Spondylosis without myelopathy or radiculopathy, cervical region (Primary Dx); Neck pain; Cervicalgia; Chronic left shoulder pain; Left shoulder pain, unspecified chronicity Start: 11-18-2022 End: 11-18-2022 Treatment Jenni Noblet PT [facility] [place] Start: 11-15-2022 Refill Sheila Ace MA [facility] [place] Start: 11-15-2022 Refmiky Ace MA [facility] [place] Start: 11-14-2022 End: 11-14-2022 ambulatory JENNI NOBLET JENNI [facility] Start: 11-14-2022 End: 11-14-2022 ambulatory [facility] Comment on above: Spondylosis without myelopathy or radiculopathy, cervical region (Primary Dx); Neck pain; Cervicalgia; Chronic left shoulder pain; Left shoulder pain, unspecified chronicity Start: 11-14-2022 End: 11-14-2022 Treatment [facility] Start: 11-14-2022 End: 11-14-2022 ambulatory RHONDA KAISER [facility] Start: 11-14-2022 End: 11-14-2022 Office outpatient new 45 minutes Rhonda Kaiser MD Work Phone: [facility] [place] Comment on above: Nicotine dependence, uncomplicated, unspecified nicotine product type (Primary Dx); Chronic obstructive pulmonary disease, unspecified COPD type ([facility]) Start: 11-14-2022 End: 11-14-2022 Patient encounter procedure Rhonda Kaiser MD Work Phone: [facility] [place] Start: 11-12-2022 End: 11-12-2022 ambulatory Jenni [facility] Comment on above: Spondylosis without myelopathy or radiculopathy, cervical region (Primary Dx); Neck pain; Cervicalgia; Chronic left shoulder pain; Left shoulder pain, unspecified chronicity Start: 11-12-2022 End: 11-12-2022 Treatment Jenni [facility] PT [facility] Start: 11-05-2022 End: 11-05-2022 ambulatory JENNI NOBLET JENNI [facility] Start: 11-05-2022 End: 11-05-2022 ambulatory Jenni [facility]let PT [facility] Comment on above: Spondylosis without myelopathy or radiculopathy, cervical region (Primary Dx); Neck pain; Cervicalgia; Chronic left shoulder pain; Left shoulder pain, unspecified chronicity Start: 11-05-2022 End: 11-05-2022 Treatment Jenni Huang PT [facility] Start: 10-30-2022 End: 10-30-2022 ambulatory JENNI JOET JENNI [facility] Start: 10-30-2022 End: 10-30-2022 ambulatory Jenni Reina PT [facility] Comment on above: Spondylosis without myelopathy or radiculopathy, cervical region (Primary Dx); Neck pain Start: 10-30-2022 End: 10-30-2022 Evaluation Jenni Huang PT [facility] Start: 02-06-2022 End: 02-06-2022 ambulatory TAGGE KALIE TAGGE KALIE~[id number] [facility] Start: 02-06-2022 End: 02-06-2022 ambulatory Kalie Tagge PT [facility] Comment on above: Cervicalgia (Primary Dx) Start: 02-06-2022 End: 02-06-2022 Treatment Kalie Tagge PT [facility] Start: 02-04-2022 End: 02-04-2022 ambulatory STORM INMAN [facility] [place] Start: 01-28-2022 End: 01-28-2022 ambulatory STORM INMAN [facility] Start: 01-24-2022 End: 01-24-2022 ambulatory TAGGE KALIE TAGGE KALIE~[id number] [facility] Plan of Treatment Date Care Activity Detail Author Start: 10-31-2026 Lipid panel Cholesterol Mukesh banegas (Lipid Panel) [facility] Start: 11-18-2023 End: 11-18-2023 Patient encounter procedure 11/18/2023 Appointment Radiology [facility] Start: 11-28-2022 End: 11-28-2022 ambulatory 11/28/2022 Treatment Physical Therapy Jenni Huang, PT [facility] Start: 11-28-2022 End: 11-28-2022 ambulatory 11/28/2022 Treatment Physical Therapy Jenni Huang, PT [facility] Start: 11-25-2022 End: 11-25-2022 ambulatory 11/25/2022 Treatment Physical Therapy Jenni Huang, PT [facility] [place] Start: 11-25-2022 End: 11-25-2022 ambulatory 11/25/2022 Treatment Physical Therapy Jenni Huang, PT [facility] Start: 11-20-2022 End: 11-20-2022 ambulatory 11/20/2022 Treatment Physical Therapy Jenni Huang, PT [facility] Start: 11-18-2022 End: 11-18-2022 Patient encounter procedure 11/18/2022 Appointment Radiology [facility] Start: 11-18-2022 End: 11-18-2022 ambulatory 11/18/2022 Treatment Physical Therapy Jenni Huang, PT [facility] Start: 11-14-2022 End: 11-14-[address] Lung Screening Imaging Routine Nicotine dependence, uncomplicated, unspecified nicotine product type Expected: 11/14/2022, Expires: 11/14/2023 [employer] Phone: Comment on above: Expected: 11/14/2022 , Expires: 11/14/2023 Start: 11-14-2022 End: 11-14-2022 ambulatory 11/14/2022 Treatment Physical Therapy Jenni Huang, PT [facility] Start: 11-14-2022 End: 11-14-2022 Patient encounter procedure 11/14/2022 Office Visit Pulmonology Rhonda Kaiser MD [address] [place] [address] [facility] [place] Start: 11-12-2022 End: 11-12-2022 ambulatory 11/12/2022 Treatment Physical Therapy Jenni Huang, PT [facility] Start: 11-05-2022 End: 11-05-2022 ambulatory 11/05/2022 Treatment Physical Therapy Jenni Huang, PT [facility] [place] Start: 10-31-2022 Hypertension/CHF/CAD Annual BMP Blood Test Hypertension/CHF/CAD Annual BMP Blood Test [facility] Start: 10-31-2022 Screening for malign ant neoplasm of colon Colorectal Cancer Screening: Stool Based Tests (FOBT/FIT) [facility] Start: 12-20-2021 COVID-19 Vaccine (4 - Booster for Moderna series) COVID-19 Vaccine (4 - Booster for Moderna series) [facility] Start: 2020 Falls Risk Assessment Falls Risk Ass essment [facility] Start: 11-25-2019 Abdominal aortic aneurysm screening Abdominal Aortic Aneurysm (AAA) Screen [facility] Start: 11-25-2019 Adolescent depressio n screening assessment Depression Screening [facility] Start: 11-25-2019 Hepatitis C screening Hepatitis C Sc reening [facility] Start: 11-25-2019 Medicare Annual Wellness Visit Medicare Annual Wellness Visit [facility] Start: 11-25-2019 Social Influencers o f Health Screening Social Influencers of Health Screening [facility] Start: 2005 Zoster Vaccines (1 o f 2) Zoster Vaccines (1 of 2) [facility] Start: 1974 DTaP,Tdap,and Td Vaccines (1 - Tdap) DTaP,Tdap,and Td Vaccines (1 - Tdap) [facility] Start: 1956 Hepatitis A Vaccines (1 of 2 - Risk 2-dose series) Hepatitis A Vaccines (1 of 2 - Risk 2-dose series) [facility] Payers Date Payer Category Payer Self-pay 2023 Medicare [id number] 2022 Medicare [id number] 2020 Medicare MEDICARE MEDICAR E PART A & B [id number] 2020-Present [address] [facility] [place] [address] Medicare [id number] 2020 Medicare [id number] 2020 Medicare [id number] 2014 Private Health Insurance AETNA D OMESTIC AETNA DOMESTIC [id number] 2014-Present [address] [address] [place] [address] [id number] 2014 Private Health Insurance AETNA D OMESTIC AETNA DOMESTIC [id number] 2014-Present [address] [place] [address] [id number] 2014 Private Health Insurance [id number] 1955 Unknown [id number] 2.16.840.1.737049.3.579.2.1 143 1955 Unknown [id number] 2.16.840.1.272854.3.579.2.1 143 1955 Unknown [id number] 2.16.840.1.580623.3.579.2.1 143 1955 Unknown [id number] 2.16.840.1.908783.3.579.2.1 143 1955 Unknown [id number] 2.16.840.1.679767.3.579.2.1 143 1955 Unknown [id number] 2.16.840.1.165244.3.579.2.1 143 1955 Unknown [id number] 2.16.840.1.551526.3.579.2.1 143 1955 Unknown [id number] 2.16.840.1.222208.3.579.2.1 143 1955 Unknown [id number] 2.16.840.1.487023.3.579.2.1 143 1955 Unknown [id number] 2.16.840.1.437856.3.579.2.1 143 1955 Unknown [id number] 2.16.840.1.606628.3.579.2.1 143 1955 Unknown [id number] 2.16.840.1.132965.3.579.2.1 143 1955 Unknown [id number] 2.16.840.1.017956.3.579.2.1 143 1955 Unknown [id number] 2.16.840.1.250953.3.579.2.1 143 Unknown [id number] 2.16.840.1.480421.3.579.2.5 31 Social History Date Type Detail Facility Tobacco smoking stat [facility] Tobacco smoking consumption unknown [facility] Start: 1955 Sex Assigned At Not on file [facility] Start: 10-19-2022 End: 11-18-2022 Exposure to SARS-CoV-2 (event) Not sure [facility] Start: 11-14-2022 Tobacco smoking status [facility] Ex-smoker [facility] History of tobacco use Current smoker [facility] History of tobacco use Cigarette Smoker T [facility] Start: 11-14-2022 Cigarettes smoked current (pack per day) - Reported 0.5 [employer] Sex Assigned At Sex Assigned At Bir th [employer] Other Clinical Notes 08-29-2020 to 12-16-2023 Note Date & Type Note Facility 12-16-[address] Electrophysiology Consult Note Reason for visit: Afib [...] on Eliquis. Goes to cardiac rehab at [facility] a few times a week. Had BMP/MG [...] mouth in the morning. 90 tablet 3 fgvrxqijquv-igixxxhld-jwqjlkyl 200-62.5-25 mcg blister with device Inhale in [...] Carotid Arteries: bilat (more content not included)... [facility] 12-01-2023 Evaluation note Encounter Date Diagnosis Assessment Notes Nov, Severe chronic obstructive pulmonary disease (ICD-10 - J44.9) [employer] Other 12-15-2023 Evaluation note* Encounter Date Diagnosis Assessment Notes Treatment Notes Treatment Clinical Notes Oct, Unspecified atrial fibrillation (ICD-10 - I48.91) Continue meds, followup w cardio. Pt has not heard from Cardiac rehab, will reach out as he was referred by [facility] Oct, Unspecified atrial flutter (ICD-10 - I48.92) Oct, Chronic systolic congestive heart failure (ICD-10 - I50.22) Pt symptoms are improving. Oct, Sepsis due to Escherichia coli without acute organ dysfunction (ICD-10 - A41.51) Resolved. Has finished course of antibiotics Oct, Severe chronic obstructive pulmonary disease (ICD-10 - J44.9) Pt on nicotine patch. Continue to followup w pulmonology. [employer] Other [id number] NoteCardiovascular Medicine [facility] SUBJECTIVE Chief Complaint Patient presents with Hospital Follow-up Atrial Flutter Congestive Heart Failure Alejandro Maradiaga is a 68 y.o. male here for follow-up after his recent admission to [facility]. HPI He initially presented to [facility] with c/o back pain and nausea. [...] Hypomagnesemia Admission Diagnosis: Atrial fibrillation, unspecified type ([facility]) [I48.91] Hospital course: Alejandro Maradiaga is a 68 y.o. male presented emergency department as a transfer from [facility] for uncontrolled atrial flutter. Patient eventually presented to [facility] on 10/13/2020 treated with chief complaint [...] for possible cardioversion by cardiology here at [facility]. Echocardiogram revealed atrial flutter with [...] Problem List Diagnosis Atrial fibrillation, unspecified type ([facility]/HCC) Acute pyelonephritis Systolic CHF ([facility]) COPD (chronic obstructive pulmonary disease) ([facility]) Past Medical History: Diagnosis Date Abnormal ECG Arrhythmia Atrial fibrillation ([facility]/HCC) CHF (congestive heart failure) ([facility]) Family History Problem Relation Name [...] mouth in the morning., Disp: , Rfl: vehmhyrsctu-pynbnxala-iclvpbup 200-62.5-25 mcg blister with device, Inhale in [...] patch before rabia (more content not included)... [facility]12-13-2023 NotePatient here for follow up [facility]. He underwent heart cath with Dr. Mckeon, and TESS/cardioversion. Feels better s/p discharge. Denies chest pain, SOB, lightheadedness/syncope, palpitations, and bleeding on Eliquis. Review of Systems Gastrointestinal: Positive for diarrhea.[facility] 10-18-2023 Note Attestation signed by Alex Reyes MD at 10/18/2023 2:21 PM I personally saw and examined the patient on the same date of service as resident/fellow Dr. Keane. I discussed the findings and therapeutic plan with the resident/fellow Dr. Villarreal. I agree with the documentation, except for any edits/updates below. Teaching Physician's Revisions: The patient presented to [facility] after being transferred from outside [...] Value Ventricular Rate 80 Atrial Rate 80 MI Interval 222 QRS DURATION 154 QT Interval 410 QTC CALCULATION(BAZETT) 472 P [place] 79 R-[place] -79 T Wave [place] 60 Impression Atrial-sensed ventricular-paced rhythm with prolonged AV conduction Abnormal ECG When compared with ECG of 17-OCT-2023 12:57, Electronic ventricular pacemaker has replaced Sinus rhythm Confirmed by Favio REYES, ALEX Ventura ([id number]) on 10/18/2023 1:30:00 PM Lab Results Component Value Date TROPONINI 0.03 10/17/2023 Transesophageal Echo (TESS) Result Date: 10/17/[address] [facility] Heart Station [address] [place] [address] [phone] (fax) Echocardiogram-[facility] Name: ALEJANDRO MARADIAGA Study Date: 10/17/2023 12:13 PM B/P: 125 mmHg/93 mmHg HR: 144 bpm Date of : 1955 Location: [facility] Height: 71 in. Age: 68 year(s) Patient Room: 3129 Weight: 157 lb. Gender: Male Patient Status: InPt BSA: 1.9 m2 Indication: Atrial Fibrillation, Pre-cardioversion Examination: TESS (Transesophageal Echo / CFI), Agitated Saline Image Quality: Excellent Patient Consent: Informed, written consent was obtained for the procedure Exam Details Contrast: I.V. dose of agitated saline Exam Location: A TESS was performed in the Pc Technician without complications Anesthesia Pharyngeal anesthesia with viscous [...] tricuspid regurgitation. Pulmonic Kajal (more content not included)...[facility]12-09-2023 NoteHospital Medicine Discharge Summary Final Discharge Diagnosis: [...] presented emergency department as a transfer from [facility] for uncontrolled atrial flutter. Patient eventually presented to [facility] on 10/13/2020 treated with chief complaint [...] for possible cardioversion by cardiology here at [facility]. Echocardiogram revealed atrial flutter with [...] in [address] Kiara MD, Jackyward is advised to follow up with you [...] 10 mg tablet Commonly known as: Lipitor aabpqwminsa-dqglhpnsi-cnvusaih 200-62.5-25 mcg blister with device Commonly known as: Trelegy Ellipta ipratropium-albuteroL 0.5-2.5 mg/3 mL nebulizer solution Commonly known as: Duo-Neb montelukast 10 mg tablet Commonly known as: Lisa Where to Get Your Medications These medications were sent to [facility]/pharmacy #[id number] - [place], [place] - [address] [facility] [address], [facility] [address] apixaban 5 mg tablet aspirin 81 mg EC tablet dapagliflozin propanediol 10 mg metoprolol succinate XL 25 mg 24 hr tablet spironolactone 25 mg tablet Alejandro is allergic to adenosine and latex. Disposition: Home or Self Care Discharge Condition: Stable Code Status: Full Code Diagnostic Results Hematology: Results from last 7 days Lab Units 10/18/23 0540 10/17/23 0510/16/2342510/15/231936 WBC AUTO 10*3/uL 7.34 7.46 < > [...] Cardiology: Normal rate, r (more content not included)...[facility]12-09-2023 NoteHospital Medicine Daily Progress Note - 10/18/2023 11:47 AM; Room: [address] [place] [address] Admission: 10/15/2023 5:13 PM; Length of stay: 3 days THE HOSPITALIST TEAM PREFERS TO USE [employer] FOR COMMUNICATION 7AM-7PM. IF I DO NOT RESPOND WITHIN 15 MINUTES, PLEASE PAGE ME/CALL THROUGH THE PAN OPERATOR. FROM 7PM-7AM, PLEASE PAGE [phone](COVR) Code Status: Full Code Barriers to Discharge: [...] Problems Principal Problem: Atrial fibrillation, unspecified type ([facility]/HCC) Active Problems: Acute pyelonephritis Systolic CHF ([facility]/H[facility]) COPD (chronic obstructive pulmonary disease) ([facility]) Assessment and Plan A flutter [...] oral, Daily famotidine, 20 mg, oral, BID rcuheqwihns-xgnpfpgui-lcgeqqtq, 1 puff, inhalation, Daily ipratropium-albuteroL, 3 mL, nebulization, BID metoprolol succinate XL, 25 mg, oral, Daily montelukast, 10 mg, oral, Nightly nicotine, 1 patch, transdermal, Daily after evening meal spironolactone, 25 mg, oral, Daily Pertinent Investigations Hematology: Results from last 7 days Lab Units 10/18/23 0540 10/17/23 0510 10/16/23 0426 10/15/23 1937 WBC AUTO 10*3/uL 7.34 7.46 < > 7.10 HEMOGLOBIN g/dL 15.5 15.6 < > 15.3 HEMATOCRIT % 45.5 45.7 < > 44.8 MCV fL 97.2 96.8 < > 98.2* PLATELETS AUTO 10*3/uL 318 300 < > 279 INR -- -- -- 1.28* < > = values in this interval not displayed. Chemistry: Results from last 7 days Lab Units 10/17/23 0510 10/16/23 0426 10/15/23 1937 SODIUM mmol/L 136 -- 135* POTASSIUM [...] LDL 84 10/16/2023 No results found for: [id number] , IRON , TIBC , C3 , C4 , WENECSLAO , CANCA , ASO , PSA , CEA , CA125 , CA199 , AFP , CA153 Imaging Transesophageal Echo (TESS) [address] [facility] Heart Station [address] [place] [address] [phone] (fax) Echocardiogram-[facility] Name: ALEJANDRO MARADIAGA Study Date: 10/17/2023 12:13 PM B/P: 125 mmHg/93 mmHg HR: 144 bpm Date of : 1955 Location: [facility] Height: 71 in. Age: 68 year(s) Patient Room: [facility] Weight: 157 lb. Gender: Male Patient Status: InPt BSA: 1.9 m2 Indication: Atrial Fibrillation, Pre-cardioversion Examination: TESS (Transesophageal Echo / CFI), Agitated S (more content not included)...[facility] 10-17-2023 NotePt going into laborer operator suite for procedure.[facility]12-08-2023 NoteHospital Medicine Daily Progress Note - 10/17/2023 1:20 PM; Room: [facility]3129-01 Admission: 10/15/2023 5:13 PM; Length of stay: 2 days THE HOSPITALIST TEAM PREFERS TO USE [facility] CHAT FOR COMMUNICATION 7AM-7PM. IF I DO NOT RESPOND WITHIN 15 MINUTES, PLEASE PAGE ME/CALL THROUGH THE PAN OPERATOR. FROM 7PM-7AM, PLEASE PAGE [phone](COVR) Code Status: Full Code Barriers to Discharge: [...] CHF (CMS/HCC) COPD (chronic obstructive pulmonary disease) ([facility]) Assessment and Plan A flutter Acute pyelonephritis, prior to arrival Systolic CHF, EF 20 to 25%, new onset Alcohol use COPD Hyperlipidemia Continue telemetry Continue Digoxin for now for rate control Heparin drip and hold Eliquis [facility] Continue Rocephin until today [facility] protocol VTE Prophylaxis: IV heparin Scheduled Meds albuterol, 1 puff, inhalation, Daily aspirin, 81 mg, oral, Daily atorvastatin, 80 mg, oral, Nightly cefTRIAXone, 2 g, intravenous, q24h digoxin, 500 mcg, intravenous, Once Followed by digoxin, 100 mcg, intravenous, q6h famotidine, 20 mg, oral, BID onviujwufck-kcbbvossq-ulfkaeba, 1 Inhalation, inhalation, Daily furosemide, 40 mg, [...] last 7 days Lab Units 10/17/23 0510 10/16/2342510/15/237 WBC AUTO 10*3/uL 7.46 7.42 7.10 HEMOGLOBIN [...] LDL 84 10/16/2023 No results found for: [id number] , IRON , TIBC , C3 , [...] 15-OCT-2023) Abnormal ECG W (more content not included)...[facility]12-08-2023 Note Attestation signed by Eugene Gutierrez MD [...] Teaching Physician's Revisions: none Eugene Gutierrez MD CT Cardiology Cardiology Progress Note Subjective Subjective: Alejandro [...] -- (!) 138 17 95 % -- 10/16/23 2038 -- -- -- 96 19 -- -- [...] 136 QT Interval 352 QTC CALCULATION(BAZETT) 465 R-[place] -74 T Wave [place] 62 Impression Atrial flutter with variable A-V [...] (TTE) complete Result Date: 10/16/[address] [facility] Heart Station [address] [place] [address] [phone] (fax) Echocardiogram-[facility] Name: ALEJANDRO MARADIAGA Study Date: 10/16/2023 02:42 PM B/P: 155 mmHg/76 mmHg HR: 109 bpm Date of : 1955 Location: [facility] Height: 71 in. Age: 68 [...] 4 mmHg Right Ventricle (more content not included)...[facility]12-07-2023 Note Hospital Medicine Daily Progress Note - 10/16/2023 12:51 PM; Room: 3129/3129-01 Admission: 10/15/2023 5:13 PM; Length of stay: 1 days THE HOSPITALIST TEAM PREFERS TO USE [facility] CHAT FOR COMMUNICATION 7AM-7PM. IF I DO NOT RESPOND WITHIN 15 MINUTES, PLEASE PAGE ME/CALL THROUGH THE PAN OPERATOR. FROM 7PM-7AM, PLEASE PAGE [phone](COVR) Code Status: Full Code Barriers to Discharge: [...] Problems Principal Problem: Atrial fibrillation, unspecified type ([facility]) Active Problems: Acute pyelonephritis Systolic CHF ([facility]) COPD (chronic obstructive pulmonary disease) ([facility]) Assessment and Plan A flutter Acute pyelonephritis, prior to arrival Systolic CHF, EF 20 to 25%, new onset Alcohol use COPD Hyperlipidemia Continue telemetry Continue Digoxin for now for rate control Heparin drip and hold Eliquis Possible DCCV Continue Rocephin until tomorrow [facility] protocol VTE Prophylaxis: IV heparin [...] TSH 3.20 10/15/2023 No results found for: [id number] , IRON , TIBC , C3 , [...] arranged?: No (spouse) Signed Shelly Reed MD [facility] 10/16/2023 12:51 PM[facility] Note10/16/23 1147 Admission Assessment Questions Verify insurance [...] Discharge? Yes Does the patient have a supervisor case loading assigned to them through their insurance? No [...] link and activate MyChart? 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 IF I DO NOT RESPOND WITHIN 15 MINUTES, PLEASE PAGE ME/CALL THROUGH THE PAN OPERATOR. FROM 7PM-7AM, PLEASE PAGE [phone](COVR) Chief Complaint No chief complaint on file. History of Present Illness Alejandro Maradiaga is an 68 y.o. male who came from home with past medical history of COPD, current smoker, hyperlipidemia and almost daily alcohol use presented to ER as a transfer from [facility] for uncontrolled A-flutter. Patient presented to [...] Diagnosis Date Noted Atrial fibrillation, unspecified type ([facility]) 10/15/2023 Acute pyelonephritis 10/15/2023 Systolic CHF ([facility]) 10/15/2023 COPD (chronic obstructive pulmonary disease) ([facility]) 10/15/2023 Assessment and Plan A [...] this hospital stay by a member of [facility]. Past Medical History History reviewed. [...] Total pack years: 7.50 (more content not included)...[facility] Evaluation note* Encounter Date Diagnosis Assessment Notes Treatment Notes Treatment Clinical Notes Aug, Severe chronic obstructive pulmonary disease (ICD-10 - J44.9) Referral to pulmonary rehab Aug, Tobacco use disorder (ICD-10 - F17.200) [employer] Other 10-16-2023 Evaluation note* Encounter Date Diagnosis Assessment Notes Treatment Notes Treatment Clinical Notes Aug, Chronic bronchitis, unspecified chronic bronchitis type (ICD-10 - J42) [employer] Other 08-29-2023 Evaluation note* Encounter Date Diagnosis Assessment Notes Treatment Notes Treatment Clinical Notes Jun, Chronic bronchitis, unspecified chronic bronchitis type (ICD-10 - J42) [employer] Other 08-11-2023 Evaluation note* Encounter Date Diagnosis [...] likes to keep an rx on hand. [employer] Other 05-01-2023 History general Narrative - Reported* Type Description Date Medical History COPD Medical History Seasonal allergies Medical History Hyperlipidemia Surgical History Cataract surgery, both 03/2023 Surgical History Sinus surgery 2019 Surgical History C7 surgery and foramenostomy 19 93 [employer] Other 05-01-2023 History general Narrative - Reported* Type Description Date Medical History Seasonal allergies Medical History Hyperlipidemia Surgical History Cataract surgery, both 03/2023 Surgical History Sinus surgery 2019 Surgical History C7 surgery and foramenostomy 19 93 Hospitalization History rt fibula fx 2017 [employer] Other 05-01-2023 History general Narrative - Reported* Type Description Date Medical History Seasonal allergies Medical History Hyperlipidemia Medical History Afib Surgical History Cataract surgery, both 03/2023 Surgical History Sinus surgery 2019 Surgical History C7 surgery and foramenostomy 19 93 Hospitalization History rt fibula fx 2017 [employer] Other 01-16-2023 History of Present illness Narrative* Jenni Huang, PT - 11/25/2022 12:15 PM EST [facility] [place] [address] [place] [address] Physical Therapy Treatment Patient Name: Alejandro Maradiaga Date of : 1955 Today's Date: 11/25/22 Visit Number: 7 Referring Provider: Hunter Cortes DO Patient Primary Language: Albanian Referring Diagnosis: Spondylosis without myelopathy or radiculopathy, [...] symptoms by > 50%. 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 [] Goals met, discharge to HEP [] Hold or discharge therapy due to: Jenni Huang PT documented in this encounterConemaugh Miners Medical [id number] History of Present illness Narrative* Jenni Hunag PT - 11/20/2022 12:00 PM EST [facility] [place] 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 [] Goals met, discharge to HEP [] Hold or discharge therapy due to: Jenni Huang PT documented in this encounterConemaugh Miners Medical [id number] History of Present illness Narrative* Jenni Huang PT - 11/18/2022 9:00 AM EST [facility] [place] 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 [] [] [] Halfway Goals - 4 weeks Met Progressing Towards [...] current frequency to advance towards short and alf goals. [] Goals met, discharge to HEP [] Hold or discharge therapy due to: Jenni Huang PT documented in this encounterConemaugh Miners Medical [id number] History of Present illness Narrative* Sheila Ace MA - 11/15/2022 9:50 AM EST Pt called for a refill on Trelegy Ellipta 200-62.5-25 mcg inhaler. Stated he got both of his albuterols but not Trelegy Ellipta. documented in this encounterConemaugh Miners Medical [id number] History of Present illness Narrative* Jenni Huang, PT - 11/14/2022 1:30 PM [facility] [place] 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 [] [] [] Halfway Goals - 4 weeks Met Progressing Towards [...] current frequency to advance towards short and alf goals. [] Goals met, discharge to HEP [] Hold or discharge therapy due to: Jenni Huang PT documented in this encounterConemaugh Miners Medical [id number] History of Present illness Narrative* Rhonda Kaiser MD - 11/14/2022 10:30 AM EST Images from the original note were not included. Pulmonary and Sleep Medicine [facility], [address] [place] [address] Time:11:24 AM EST Reason for Consultation: COPD History Of Present Illness (includes Chief Complaint) Alejandro Maradiaga is a 67 y.o. male who was referrred to our office for COPD. 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 Patient in the past saw Dr. Tolentino, for over 14 years. However he did switch to [facility], and our office is much more convenient [...] love of saline and possibly moving to [facility] where he does have a sailboat. He also has a daughter who teaches Chinese in [facility]. 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 see an supervisor contact and service clerks Prior history of latex allergy COPD Surgical [...] DR capsule, 1 capsule, Disp: , Rfl: coudstvbwmk-tdhvslzatgvc-ndnrniijlh (Trelegy Ellipta) 200-62.5-25 mcg inhaler, Inhale 1 puff (200 mcg total) by mouth 1 (one) time each day., Disp: 60 each, Rfl: 4 yfgmbhomxpn-hskfakainfoa-fgjrnxttqm (Trelegy Ellipta) 200-62.5-25 mcg inhaler, Inhale 1 puff by mouth daily, Disp: 60 each, Rfl: 4 cmyfturevhv-iliwlgxupwgs-oqodxxwhla (Trelegy Ellipta) 200-62.5-25 mcg inhaler, Inhale 1 puff by mouth daily, Disp: 60 each, Rfl: 4 jduinkeehoe-hfilwikccwap-bxsdmuzifu (Trelegy Ellipta) 200-62.5-25 mcg inhaler, Inhale 1 [...] - General (Internal Medicine) documented in this encounterConemaugh Miners Medical [id number] History of Present illness Narrative* Jenni Huang, PT - 11/12/2022 3:00 PM EST [facility] [place] 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 [] [] [] Halfway Goals - 4 weeks Met Progressing Towards [...] current frequency to advance towards short and alf goals. [] Goals met, discharge to HEP [] Hold or discharge therapy due to: Jenni Huang PT documented in this encounterConemaugh Miners Medical [id number] History of Present illness Narrative* Jenni Huang PT - 11/05/2022 11:30 AM EST [facility] [place] 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 He feels HEP issued at [facility]. Pain In: 4/10 Out: 2/10 Objective: Poor [...] symptoms by > 50%. 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 [] Goals met, discharge to HEP [] Hold or discharge therapy due to: Jenni Huang PT documented in this encounterConemaugh Miners Medical [id number] History of Present illness Narrative* Jenni Huang PT - 10/30/2022 9:30 AM EST [facility] [place] 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 [] [] [] Halfway Goals - 4 weeks Met Progressing Towards [...] plan: Yes Treatment Plan: [x] Therapeutic Exercise (68643) [] Iontophoresis: 4 mg/mL Dexamethasone Sodium Phosphate 40-120 mAmin (33319) [x] Therapeutic Activity (60191) [] Ultrasound (62457) [] Gait Training (58205) []Electrical Stimulation Unattended (80478) [x] Neuromuscular Re-education (96526) [] Electrical Stimulation Attended (48854) [x] Manual Therapy (51258) [] Aquatic Therapy (40157) [x] Instruction in HEP [] Lumbar/Cervical Traction (11591) [] [] Dry Needling, 1 or 2 muscles () [] [] Dry Needling, 3 or more muscles () [] Vasopneumatic cold with compression (10691) [] Hot pack/[facility] [place] 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 Assessment: [] Progressing toward goals. [...] symptoms by > 50%. 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 [] Goals met, discharge to HEP [] Hold or discharge therapy due to: Jenni Huang PT documented in this encounterConemaugh Miners Medical [id number] History of Present illness Narrative* Kalie Meléndez PT - 02/06/2022 10:30 AM EDT Physical Therapy Treatment PT on hold for 2 weeks, He will email me within 30 days if PT needed Patient Name: Alejandro Maradiaga Referring Provider:?Sinan Ac MD?? Today's Date: 02/06/2022 Visit Number: [...] dynamic activity and scapular control. Followed by NEXT: UBE, FR, strengthening, VTI Assessment: [ [...] goals. Kalie Meléndez PT documented in this encounterConemaugh Miners Medical [id number] Physician [facility] PATIENT NAME:ALEJANDRO MARADIAGA AGE: 66 Years SEX: Male PHONE:[phone] DOS: 07/12/2021 06:15:00 : 1955 ER PHYSICIAN:Kamlesh [...] No pneumothorax.IMPRESSION:Mild right midlung opacity suspicious for infiltrate.[facility] thanks you for the opportunity to care for your patient. Workstation ID: [id number] DIAGNOSTICS: FOLLOW UP: With: Address: When: Elle Cortes [address], [address] [place] [address] Business (1) Comments: Call for an AppointmentMoC[facility] Bacteria identified Aer cx Nom (Drain)[facility] Microbiology PROCEDURE: Culture Drainage SOURCE: Sinus [...] Tetracycline Resistant >=16 Trimethoprim/ Susceptible <=10 SulfamethoxazoleMount Ohio State Harding HospitalComment on above:Performed By: #### 607-2 #### [place] [id number] [facility] note* Diagnosis Cervicalgia- Primary documented in this encounter [facility] note* Diagnosis Spondylosis without myelopathy or radiculopathy, cervical region- Primary Neck pain Cervicalgia documented in this encounter [facility] note* Diagnosis Spondylosis without myelopathy or radiculopathy, cervical region- Primary Neck pain Cervicalgia Cervicalgia Chronic left shoulder pain Pain in joint, shoulder region Left shoulder pain, unspecified chronicity documented in this encounter [facility] note* Diagnosis Nicotine dependence, uncomplicated, unspecified nicotine product type- Primary Chronic obstructive pulmonary disease, unspecified COPD type (CMS/[facility]) documented in this encounter [facility] note* Diagnosis Spondylosis without myelopathy or radiculopathy, cervical region- Primary Neck pain Cervicalgia Cervicalgia Chronic left shoulder pain Pain in joint, shoulder region Left shoulder pain, unspecified chronicity documented in this encounter [facility] note* Diagnosis Spondylosis without myelopathy or radiculopathy, cervical region- Primary Neck pain Cervicalgia Cervicalgia Chronic left shoulder pain Pain in joint, shoulder region Left shoulder pain, unspecified chronicity documented in this encounter [facility] noteNo [facility] Narrative* Consultation (Routine) - Authorized Specialty Diagnoses / Procedures Referred By Contliza t Referred To Contact Physical Therapy Diagnoses Pain in left shoulder Cervicalgia Sinan Ac MD [address] [place] [address] [facility] Physical Therapy [address] [address] Referral ID Status Reason Start Date Expiration Date Visits Requested Visits Authorized [id number] Authorized Specialty Services Required 01/15/2022 07/14/2022 1 8 [facility] for visit Narrative* Consultation (Routine) - Authorized Specialty Diagnoses / Procedures Referred By Contac t Referred To Contact Physical Therapy Diagnoses Spondylosis without myelopathy or radiculopathy, cervical region Hunter Cortes, [address] [place] [address] [facility] [address] [place] [address] Referral ID Status Reason Start Date Expiration Date Visits Requested Visits Authorized [id number] Authorized Specialty Services Required 04/07/2023 1 8 [facility] Summary Purpose Family History No Family History Records FoundNo Family History Records FoundNo Family History Records FoundNo Family History Records FoundNo Family History Records FoundNo Family History Records Found Advance Directives No Advanced Directives Records FoundDocuments on File Type Date Recorded Patient Metrology Specialist Expl anation Power of Medication Reconciliation Technician Reason for Referral Specialty Diagnoses / Procedures Referred By Kenny t Referred To Contact Diagnoses Chronic obstructive pulmonary disease, unspecified COPD type (CMS/HCC) Rhonda Kaiser MD Lyndon Sinclair [address] [address] Referral ID Status Reason Start Date Expiration Date Visits Re quested Visits Authorized [id number] Closed 1 1 Specialty Diagnoses / Procedures Referred By Ruthac t Referred To Contact Radiology Diagnoses Nicotine dependence, uncomplicated, unspecified nicotine product type Procedures CT Lung Screening Rhonda Kaiser MD [address] [address] [facility] Referral ID Status Reason Start Date Expiration Date V isits Requested Visits Authorized [id number] Authorized 11/14/2022 05/13/2023 1 1 Reason *Waiting for appt Establish for COPD - moved here from [place] Diagnosis 1 Chronic bronchitis, unspecified chronic bronchitis type (J42) Referral Organization [facility] Josue juares Referring Provider First Name Shanell Referring Provider Last Name Kiara Referring Provider Specialty Family Medi cine Referred Organization [facility] Referred Provider Tima Osorio Referred Address [address] [place] [address],[place] [address],[place], [place],[address] Referred Provider Specialty Pulmonary Roshni nash Referral Priority Routine General Notes ImtiazNga dee 03:29:44 PM >received today, sent P2P Additional Source Comments (unrecognized sect ion and content) No Status Records FoundNo Status Records FoundNo Status Records FoundNo Status Records FoundNo Status Records FoundNo Status Records Found INFORMATION SOURCE (unrecogn ized section and content) DATE CREATED AUTHOR 07/13/2021 [facility] DATE CREATED AUTHOR AUTHOR'S ORGANIZ ATION 11/25/2022 [facility] DATE CREATED AUTHOR AUTHOR'S ORGANIZ ATION 01/18/2023 [facility] DATE CREATED AUTHOR AUTHOR'S ORGANIZ ATION 03/04/2023 [facility] DATE CREATED AUTHOR AUTHOR'S ORGANIZ ATION 12/17/2023 [facility] DATE CREATED AUTHOR AUTHOR'S ORGANIZ ATION 12/19/2023 [facility] Care Teams (unrecognized sec tion and content) Professional Fighter Relationship Specialty Start Date End Date Elle Cortes MD [address] [address] PCP - General Internal Medicine 10/18/21 Professional Fighter Relationship Specialty Start Date End Date Elle Cortes MD [address] [address] PCP - General Internal Medicine 10/18/21 Professional Fighter Relationship Specialty Start Date End Date Elle Cortes MD [address] [address] PCP - General Internal Medicine 10/18/21 Professional Fighter Relationship Specialty Start Date End Date Elle Cortes MD [address] [address] PCP - General Internal Medicine 10/18/21 Professional Fighter Relationship Specialty Start Date End Date Elle Cortes MD [address] [address] PCP - General Internal Medicine 10/18/21 Professional Fighter Relationship Specialty Start Date End Date Elle Cortes MD [address] [address] PCP - General Internal Medicine 10/18/21 Professional Fighter Relationship Specialty Start Date End Date Elle Cortes MD [address] [address] PCP - General Internal Medicine 10/18/21 Ordered [...] 11/26/2022 ipratropium-albuteroL (DUONEB) 0.5-2.5 mg/3 mL nebulizer solutionIndications: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 270 mL 3 11/14/2022 albuterol HFA (PROAIR HFA ; PROVENTIL HFA ; VENTOLIN HFA) 90 mcg/actuation inhalerIndications:Chron ic obstructive pulmonary disease, unspecified COPD type ([facility]) Inhale 2 puffs 2 (two) times a day. 6.7 g 3 11/14/2022 Prescription Sig Dispensed Refills Start Date End Da te [id number]-wmnppjcfclqi-vk lanterol (Trelegy Ellipta) 200-62.5-25 mcg inhaler Inhale [...] BE BASED ON THE PRIMARY CLINICAL RECORDS. [employer] provides no warranty or guarantee of the accuracy or completeness of information in this document.
[2024-01-15 09:55] LABS: Basophils Absolute Auto 0.1 10^3/uL (0.0-0.1); Eosinophils Absolute Auto 0.5 10^3/uL (0.0-0.7); Eosinophils Percent Auto 6.7 % (0.9-7.0); Hematocrit 42.8 % (42.0-54.0); Hemoglobin 14.1 g/dL (14.0-18.0); Immature Granulocytes Abs Auto 0.04 10^3/uL (0.00-0.03); Immature Granulocytes Pct Auto 0.5 % (0.0-0.5); Lymphocytes Absolute Auto 2.7 10^3/uL (1.2-3.8); Mean Corpuscular HGB Conc 32.9 g/dL (29.9-35.2); Mean Corpuscular Hemoglobin 33.9 pg (25.9-34.0); Mean Corpuscular Volume 102.9 fL (80.0-94.0); Mean Platelet Volume 9.5 fL (9.5-13.5); Monocytes Absolute Auto 0.7 10^3/uL (0.3-0.8); Monocytes Percent Auto 9.1 % (1.7-12.0); Neutrophils Absolute Auto 3.9 10^3/uL (1.4-6.5); Neutrophils Percent Auto 48.7 % (43.0-75.0); Platelet Count 297 10^3/uL (150-450); Red Blood Count 4.16 10^6/uL (4.70-6.10); Red Cell Distribution Width 13.7 % (11.0-15.0)
[2024-01-15 11:15] LABS: Anion Gap 15.6; BUN Creatinine Ratio 17.6; Calcium 9.1 mg/dL (8.5-10.1); Carbon Dioxide 26.6 mmol/L (21.0-32.0); Chloride 98 mmol/L (98-107); Estimated GFR (African America >60 (>=60); Estimated GFR (Non-African Ame >60 (>=60); Glucose 173 mg/dL (74-106); Potassium 4.2 mmol/L (3.5-5.1); Sodium 136 mmol/L (136-145)
== END 2024-01-15 09:31 | disposition home or self-care (01) ==
LOC: LAB 09:32
PROVIDERS: PCP Family Medicine; Visit Provider Internal Medicine Cardiovascular Disease
DX: I48.92 Unspecified atrial flutter (principal)
CPT/HCPCS: 36415; 80048; 85025

== ENCOUNTER 2024-10-17 08:47 | Observation (INO) | payer MEDICARE, SELFPAY ==
[2024-10-17] VITALS (20 sets, daily range): BP systolic 133–165; BP diastolic 74–94; PULSE 79–109; TEMP 36.6–36.9; O2SAT 90–98; BMI 25.1; BMI 23.2
--- NOTE | 2024-10-17 08:57 | XR_ITS ---
The [address] [address] Patient Name: GABRIELA JAFFE MRN: [id number] date: 1955 Sex: M Assigned Patient Location: ER Current Patient Location: ED.MAIN Accession/Order Number: [id number] Exam Date: 10/17/2024 09:08 Report Date: 10/17/2024 09:55 At the request of: SHELDON SIMPSON Procedure: XR chest 1V EXAM: XR chest 1V INDICATION: shortness of breath. COMPARISON: Chest x-ray 10/13/2023 TECHNIQUE: Single frontal view of the chest FINDINGS: Normal cardiomediastinal contours. No acute infiltrative process. Stable left midlung linear atelectasis/scarring. No pleural effusion or pneumothorax. No acute osseous abnormality. Cardiac loop recorder noted. XR/XR chest 1V IMPRESSION: No acute cardiopulmonary process. Electronically authenticated by: GINGER GUTIERREZ Date: 10/17/2024 09:55
--- NOTE | 2024-10-17 08:57 | ECG_ITS ---
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
--- NOTE | 2024-10-17 08:58 | ED.GENADUL1 ---
HPI HPI - General Adult General Chief complaint: Shortness of Breath/Dyspnea Stated complaint: SHORTNESS OF BREATH Time Seen by Provider: 10/17/24 08:54 Source: patient Mode of arrival: walk-in History of Present Illness HPI narrative: 69-year-old male presents to the emergency department for shortness of breath. He has COPD and continues to smoke and he states he picked up a cold 5 days ago. He states his COPD has never been this bad before. No fever or productive cough. No vomiting or diarrhea. He used his inhaler but it did not help much. He is not on home oxygen. Related Data Home Medications ?Medication ?Instructions ?Recorded ?Confirmed albuterol sulfate 90 mcg/actuation 1 inh inhalation DAILY 10/13/23 10/17/24 aerosol inhaler atorvastatin 10 mg tablet 10 mg PO DAILY 10/13/23 10/17/24 fluticasone fur. 200 mcg-umeclid 1 inh inhalation DAILY 10/13/23 10/17/24 62.5 mcg-vilant 25 mcg inhalat.powder (Trelegy Ellipta) ipratropium 0.5 mg-albuterol 3 mg 3 ml inhalation BID 10/13/23 10/17/24 (2.5 mg base)/3 mL nebulization soln montelukast 10 mg tablet 10 mg PO DAILY 10/13/23 10/17/24 Allergies Allergy/AdvReac Type Severity Reaction Status Date / Time latex Allergy Severe Verified 10/13/23 15:49 adenosine Allergy Intermediate dyspnea Verified 10/13/23 15:49 Opioid HPI Opioid Management Most Recent Opioid Data: Last Pain Scale 0 10/15/23 15:00 10/15/23 Review of Systems ROS Narrative A ten point review of systems is negative except as noted above. [facility] Medical History COPD (chronic obstructive pulmonary disease) ?J44.9 - Chronic obstructive pulmonary disease, unspecified (ICD-10) Hypercholesteremia ?E78.00 - Pure hypercholesterolemia, unspecified (ICD-10) Surgical History H/O sinus surgery ?Z98.890 - Other specified postprocedural states (ICD-10) Family History Mother Family history of stroke Other Family history of COPD (chronic obstructive pulmonary disease) Family history of hypertension Social History Within the past year, how often did you have a drink containing alcohol: 4 or more times a week Within the past year, how many standard drinks containing alcohol did you have on a typical day: 3 or 4 Within the past year, how often did you have six or more drinks on one occasion: daily or almost daily Total score: 6 Score interpretation: A score of 4 or more indicates drinking is likely to affect patient's safety. 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 Highest level of school completed/degree received: Professional degree (, [employer], DVM, DDS) Are you now , , , , never or living with a partner: Little interest or pleasure in doing things: not at all Feeling down, depressed, or hopeless: not at all Feel stressed/tense/nervous/anxious/difficulty sleeping: not at all Exam Narrative Exam Narrative: Nurses note and vital signs reviewed and patient is not hypoxic. General: The patient appears mildly dyspneic Skin: Warm, dry, no pallor noted. There is no rash noted. Head: Normocephalic, atraumatic Eye: Normal conjunctiva, no drainage Ears, Nose, Mouth, and Throat: oral mucosa is moist. Nares patent. Cardiovascular: Regular Rate and Rhythm Respiratory: Bilateral rhonchi throughout Back: non-tender GI: Soft and nontender Musculoskeletal: The patient has no evidence of calf tenderness, no pitting edema, symmetrical pulses noted bilaterally Neurological: A&O, normal speech Psychiatric: Cooperative Constitutional Vital Signs, click to edit/add: Last Vital Signs Temp 97.8 F 10/17/24 08:49 Pulse 94 H 10/17/24 09:14 Resp 18 10/17/24 08:49 BP 153/91 H 10/17/24 08:49 Pulse Ox 93 L 10/17/24 09:14 O2 Del Method Room Air 10/17/24 09:14 Course Vital Signs Vital signs: Vital Signs Temperature 97.8 F 10/17/24 08:49 Pulse Rate 100 H 10/17/24 08:49 Respiratory Rate 18 10/17/24 08:49 Blood Pressure 153/91 H 10/17/24 08:49 Pulse Oximetry 93 L 10/17/24 08:49 Oxygen Delivery Method Room Air 10/17/24 08:49 Temperature 97.8 F 10/17/24 08:49 Pulse Rate 94 H 10/17/24 09:14 Respiratory Rate 18 10/17/24 08:49 Blood Pressure 153/91 H 10/17/24 08:49 Pulse Oximetry 93 L 10/17/24 09:14 Oxygen Delivery Method Room Air 10/17/24 09:14 Medical Decision Making MDM Narrative Medical decision making narrative: The patient presents with COPD exacerbation. He was given IV Solu-Medrol and multiple aerosol treatments and is being admitted. He is feeling slightly improved. COVID and influenza test are negative and blood cultures were obtained and he was given IV antibiotic. Treatment diagnosis and disposition were discussed with the patient. Differential Diagnosis Differential Diagnosis: COPD exacerbation, COVID, influenza, pneumonia Lab Data Lab results reviewed: Yes I reviewed the patient's lab results Labs: Lab Results 10/17/24 Range/Units 09:00 WBC 10.7 (4.0-11.0) 10^3/uL RBC 4.34 L (4.70-6.10) 10^6/uL Hgb 15.3 (14.0-18.0) g/dL Hct 43.7 (42.0-54.0) % MCV 100.7 H (80.0-94.0) fL MCH 35.3 H (25.9-34.0) pg MCHC 35.0 (29.9-35.2) g/dL RDW 12.1 (11.0-15.0) % Plt Count 317 (150-450) 10^3/uL MPV 10.2 (9.5-13.5) fL Neut % (Auto) 60.0 (43.0-75.0) % Lymph % (Auto) 22.7 (20.5-60.0) % [place] % (Auto) 11.0 (1.7-12.0) % Eos % (Auto) 5.1 (0.9-7.0) % Baso % (Auto) 0.6 (0.2-2.0) % Neut # (Auto) 6.4 (1.4-6.5) 10^3/uL Lymph # (Auto) 2.4 (1.2-3.8) 10^3/uL [place] # (Auto) 1.2 H (0.3-0.8) 10^3/uL Eos # (Auto) 0.6 (0.0-0.7) 10^3/uL Baso # (Auto) 0.1 (0.0-0.1) 10^3/uL Abs Immat Gran (auto) 0.06 H (0.00-0.03) 10^3/uL Imm/Tot Granulo (auto) 0.6 H (0.0-0.5) % Sodium 137 (136-145) mmol/L Potassium 3.8 (3.5-5.1) mmol/L Chloride 101 (98-107) mmol/L Carbon Dioxide 25.5 (21.0-32.0) mmol/L Anion Gap 14.3 BUN 11.0 (7.0-18.0) mg/dL Creatinine 0.89 (0.70-1.30) mg/dL Est GFR ( Amer) >60 (>=60 mL/min/1.73m^2) Est GFR (Non-Af Amer) >60 (>=60 mL/min/1.73m^2) BUN/Creatinine Ratio 12.4 Glucose 175 H (74-106) mg/dL Calcium 9.3 (8.5-10.1) mg/dL Troponin I High Sens 7.9 (4.0-76.1) pg/mL Influenza Type A Ag Negative Influenza Type B Ag Negative SARS-CoV-2 Ag (CV2AG) Negative (NEGATIVE) Imaging Data Chest x-ray: My impression: COPD, no infiltrate ECG Data Attestation: I personally reviewed and interpreted this ECG as follows: (EKG on my interpretation shows sinus rhythm without acute change) Critical Care Time Critical Care Time Critical Care Time: Yes Total Critical Care Time: 35 Attestation: Due to the high probability of sudden and clinically significant deterioration in the patient's condition he/she required the highest level of my preparedness to intervene urgently I provided critical care time including documentation time, medication orders and management, reevaluation, vital sign assessment, ordering and reviewing of lab tests, ordering and reviewing of x-ray studies, and admission orders. Aggregate critical care time is 35 minutes including only time during which I was engaged in work directly related to his/her care and did not include time spent treating other patients simultaneously. Discharge Plan Discharge Chief Complaint: Shortness of Breath/Dyspnea Clinical Impression: Acute exacerbation of chronic obstructive pulmonary disease Patient Disposition: Admitted As Inpatient Time of Disposition Decision: 09:45 Condition: Fair
[2024-10-17] MEDS: ALBUTEROL SULFATE 2.5 MG/3 ML VIAL NEB IH ×2 (09:12→09:48)
[2024-10-17 09:25] LABS: Basophils Absolute Auto 0.1 10^3/uL (0.0-0.1); Basophils Percent Auto 0.6 % (0.2-2.0); Eosinophils Absolute Auto 0.6 10^3/uL (0.0-0.7); Eosinophils Percent Auto 5.1 % (0.9-7.0); Hematocrit 43.7 % (42.0-54.0); Hemoglobin 15.3 g/dL (14.0-18.0); Immature Granulocytes Abs Auto 0.06 10^3/uL (0.00-0.03); Immature Granulocytes Pct Auto 0.6 % (0.0-0.5); Lymphocytes Absolute Auto 2.4 10^3/uL (1.2-3.8); Lymphocytes Percent Auto 22.7 % (20.5-60.0); Mean Corpuscular Hemoglobin 35.3 pg (25.9-34.0); Mean Corpuscular Volume 100.7 fL (80.0-94.0); Mean Platelet Volume 10.2 fL (9.5-13.5); Monocytes Absolute Auto 1.2 10^3/uL (0.3-0.8); Neutrophils Absolute Auto 6.4 10^3/uL (1.4-6.5); Platelet Count 317 10^3/uL (150-450); Red Blood Count 4.34 10^6/uL (4.70-6.10); Red Cell Distribution Width 12.1 % (11.0-15.0); White Blood Count 10.7 10^3/uL (4.0-11.0)
[2024-10-17] MEDS: METHYLPREDNISOLONE SOD SUCC PF 125 MG/2 ML VIAL IVP ×3 (09:32→20:17)
[2024-10-17 09:35] LABS: Influenza Virus A Antigen Negative; Influenza Virus B Antigen Negative; Internal Control Within Normal Limits; SARS-CoV-2 Ag NEGATIVE (NEGATIVE)
[2024-10-17 09:43] LABS: Anion Gap 14.3; BUN Creatinine Ratio 12.4; Calcium 9.3 mg/dL (8.5-10.1); Carbon Dioxide 25.5 mmol/L (21.0-32.0); Chloride 101 mmol/L (98-107); Estimated GFR (African America >60 (>=60 mL/min/1.73m^2); Estimated GFR (Non-African Ame >60 (>=60 mL/min/1.73m^2); Glucose 175 mg/dL (74-106); Potassium 3.8 mmol/L (3.5-5.1); Sodium 137 mmol/L (136-145); Troponin I High Sensitivity 7.9 pg/mL (4.0-76.1)
[2024-10-17] MEDS: CEFTRIAXONE 1,000 MG in 0.9 % SODIUM CHLORIDE 50 ML 100 MG IV (10:07)
--- NOTE | 2024-10-17 10:29 | P.HP_ITS ---
HPI H&P: HPI History of Present Illness Chief complaint: SHORTNESS OF BREATH, ACUTE COPD EXACERBATION Narrative: Patient presented to the emergency with a 5-day history of increasing cough and shortness of breath, did not see his PCP or pulmonology as he felt it was just going to improve on its own, breathing was much worse today and presented to the emergency room, found to have acute exacerbation of COPD. No hypoxia but significant dyspnea, patient admitted for workup and treatment of same Opioid HPI Opioid Management Most Recent Pain and Opioid Data: Last Pain Scale 0 10/15/23 15:00 10/15/23 Review of Systems ROS Status of ROS 10 or more systems reviewed and unremark able except as noted in history and below [facility] Medical History (Updated 10/17/24 @ 10:42 by Ann Jett) History of cardiac monitoring ?Z92.89 - Personal history of other medical treatment (ICD-10) UTI (urinary tract infection) ?N39.0 - Urinary tract infection, site not specified (ICD-10) Atrial flutter ?I48.92 - Unspecified atrial flutter (ICD-10) Chronic systolic heart failure ?I50.22 - Chronic systolic (congestive) heart failure (ICD-10) Acute pyelonephritis ?N10 - Acute pyelonephritis (ICD-10) Acute pyelitis ?N10 - Acute pyelonephritis (ICD-10) COPD (chronic obstructive pulmonary disease) ?J44.9 - Chronic obstructive pulmonary disease, unspecified (ICD-10) Hypercholesteremia ?E78.00 - Pure hypercholesterolemia, unspecified (ICD-10) Surgical History (Updated 10/17/24 @ 10:42 by Ann Jett) S/P ablation of atrial flutter ?Z98.890 - Other specified postprocedural states (ICD-10) ?Z86.79 - Personal history of other diseases of the circulatory system (ICD- 10) H/O sinus surgery ?Z98.890 - Other specified postprocedural states (ICD-10) Family History Mother Family history of stroke Other Family history of COPD (chronic obstructive pulmonary disease) Family history of hypertension Social History (Updated 10/17/24 @ 10:43 by Ann Jett) Within the past year, how often did you have a drink containing alcohol: 4 or more times a week Within the past year, how many standard drinks containing alcohol did you have on a typical day: 1 or 2 Within the past year, how often did you have six or more drinks on one occasion: never Total score: 0 Score interpretation: Questions 2 and 3 are 0. It can be assumed that the patient's drinking is below the recommended limits. However, please confirm the accuracy of the patient's alcohol intake over the last few months. 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 Highest level of school completed/degree received: Professional degree (MD, [employer], DVM, DDS) Are you now , , , , never or living with a partner: Little interest or pleasure in doing things: not at all Feeling down, depressed, or hopeless: not at all Feel stressed/tense/nervous/anxious/difficulty sleeping: not at all Do you think of yourself as: straight/heterosexual Gender Identity: male Meds Home Medications and Allergies Home Medications ?Medication ?Instructions ?Recorded ?Confirmed ?Type albuterol sulfate 90 mcg/actuation 1 inh inhalation DAILY 10/13/23 10/17/24 History aerosol inhaler fluticasone fur. 200 mcg-umeclid 1 inh inhalation DAILY 10/13/23 10/17/24 Histo ry 62.5 mcg-vilant 25 mcg inhalat.powder (Trelegy Ellipta) ipratropium 0.5 mg-albuterol 3 mg 3 ml inhalation TID 10/13/23 10/17/24 History (2.5 mg base)/3 mL nebulization soln Allergies Allergy/AdvReac Type Severity Reaction Status Date / Time latex Allergy Severe Verified 10/13/23 15:49 adenosine Allergy Intermediate dyspnea Verified 10/13/23 15:49 Exam Constitutional Vital Signs, click to edit/add: Last Vital Signs Temp 97.8 F 10/17/24 08:49 Pulse 88 10/17/24 09:50 Resp 14 10/17/24 09:50 BP 143/88 H 10/17/24 09:30 Pulse Ox 91 L 10/17/24 09:50 O2 Del Method Room Air 10/17/24 09:50 Documenting provider has reviewed patient's vital signs: yes Common normals: apparent distress (Mild to moderate conversational dyspnea) Chest Common normals: inspection of chest normal Respiratory Common normals: abnormal respiratory effort (Mild to moderate conversational dyspnea with persistent cough) Effort & inspection: tachypneic; does not use accessory muscles Auscultation: rhonchi and wheezes Cardio Common normals: regular rate and regular rhythm GI Common normals: Normal to inspection, nondistended, normoactive bowel sounds present Common normals: no CVA tenderness and external exam normal Back & Pelvis Common normals: no CVA tenderness Extremity Common normals: normal to inspection, full ROM, normal capillary refill and no clubbing, cyanosis or edema Neuro Common normals: oriented x3 and CN's II-XII intact bilaterally Results Labs Labs: Short CBC 10/17/24 Range/Units 09:00 WBC 10.7 (4.0-11.0) 10^3/uL Hgb 15.3 (14.0-18.0) g/dL Hct 43.7 (42.0-54.0) % Plt Count 317 (150-450) 10^3/uL BMP 10/17/24 09:00 Sodium 137 Potassium 3.8 Chloride 101 Carbon Dioxide 25.5 BUN 11.0 Creatinine 0.89 Glucose 175 H Calcium 9.3 Assessment and Plan Assessment and Plan (1) Acute exacerbation of chronic obstructive pulmonary disease: (2) Atrial flutter with rapid ventricular response: (3) Tachycardia: Plan Admission findings: Sinus tachycardia, respiratory distress, elevated blood pressure, significant dyspnea and cough secondary to acute exacerbation of COPD Acute exacerbation of COPD-aerosol treatments, steroids, antibiotics. He is not hypoxic currently. Monitor closely. Uncontrolled hypertension-monitor closely, patient not taking any medications currently. Sinus tachycardia likely related to the respiratory distress. So far improved with breathing treatments. History of atrial flutter-as long-term monitoring device implanted, was told no longer having episodes over the summer time and has been off of his Eliquis and beta-blockers, will monitor on telemetry Hyperglycemia-in a nonfasting state-monitor daily Admission status: Patient with significant respiratory distress but no significant hypoxia. Greater than 50% chance that medically necessary treatment will only span [address] patient in observational status. If patient's respiratory distress becomes worse or hypoxia ensues, will change patient to inpatient status as medically necessary treatment will thus likely span 2 midnights
[2024-10-17] MEDS: AZITHROMYCIN 500 MG in 0.9 % SODIUM CHLORIDE 250 ML 250 MG IV (10:48)
[2024-10-17 10:57] LABS: Alanine Aminotransferase 24 U/L (16-63); Albumin Globulin Ratio 0.9; Albumin Level 3.8 g/dL (3.4-5.0); Alkaline Phosphatase 129 U/L (46-116); Aspartate Amino Transferase 22 U/L (15-37); Bilirubin Direct 0.4 mg/dL (0.0-0.2); Bilirubin Total 1.3 mg/dL (0.2-1.0); Total Protein 7.8 g/dL (6.4-8.2)
[2024-10-17 10:59] LABS: Magnesium 1.8 mg/dL (1.8-2.4)
[2024-10-17] MEDS: [UNRECOGNIZED DRUG - REMARK] 1 EACH IH (14:24)
[2024-10-17] MEDS: IPRATROPIUM/ALBUTEROL SULFATE 3 ML AMPUL.NEB IH ×2 (16:23→23:02)
[2024-10-18] VITALS (7 sets, daily range): BP systolic 119–131; BP diastolic 53–82; PULSE 78–87; TEMP 36.4–36.6; O2SAT 90–94
[2024-10-18] MEDS: METHYLPREDNISOLONE SOD SUCC PF 125 MG/2 ML VIAL IVP (02:50)
[2024-10-18 05:39] LABS: Basophils Percent Auto 0.2 % (0.2-2.0); Hematocrit 41.8 % (42.0-54.0); Immature Granulocytes Abs Auto 0.07 10^3/uL (0.00-0.03); Immature Granulocytes Pct Auto 1.1 % (0.0-0.5); Lymphocytes Absolute Auto 0.9 10^3/uL (1.2-3.8); Lymphocytes Percent Auto 13.5 % (20.5-60.0); Mean Corpuscular HGB Conc 35.9 g/dL (29.9-35.2); Mean Corpuscular Hemoglobin 36.4 pg (25.9-34.0); Mean Corpuscular Volume 101.5 fL (80.0-94.0); Mean Platelet Volume 10.1 fL (9.5-13.5); Monocytes Absolute Auto 0.2 10^3/uL (0.3-0.8); Monocytes Percent Auto 2.3 % (1.7-12.0); Neutrophils Absolute Auto 5.5 10^3/uL (1.4-6.5); Neutrophils Percent Auto 82.9 % (43.0-75.0); Platelet Count 324 10^3/uL (150-450); Red Blood Count 4.12 10^6/uL (4.70-6.10); Red Cell Distribution Width 11.9 % (11.0-15.0); White Blood Count 6.6 10^3/uL (4.0-11.0)
[2024-10-18] MEDS: IPRATROPIUM/ALBUTEROL SULFATE 3 ML AMPUL.NEB IH (05:47)
[2024-10-18 06:02] LABS: BUN Creatinine Ratio 16.1; Calcium 9.1 mg/dL (8.5-10.1); Carbon Dioxide 26.3 mmol/L (21.0-32.0); Chloride 103 mmol/L (98-107); Estimated GFR (African America >60 (>=60 mL/min/1.73m^2); Estimated GFR (Non-African Ame >60 (>=60 mL/min/1.73m^2); Glucose 202 mg/dL (74-106); Potassium 4.3 mmol/L (3.5-5.1); Sodium 138 mmol/L (136-145)
--- NOTE | 2024-10-18 06:54 | P.DS_ITS ---
DS: Providers Provider Date of admission: 10/17/24 10:25 Primary care physician: Shanell Craig MD DS: Diagnosis Discharge Diagnosis (1) Acute exacerbation of chronic obstructive pulmonary disease: (2) Atrial flutter with rapid ventricular response: (3) Tachycardia: Plan Admission findings: Sinus tachycardia, respiratory distress, elevated blood pressure, significant dyspnea and cough secondary to acute exacerbation of COPD Acute exacerbation of COPD-improving Uncontrolled hypertension-monitor closely, improving Sinus tachycardia likely related to the respiratory distress. Improving History of atrial flutter-as long-term monitoring device implanted, was told no longer having episodes over the summer time and has been off of his Eliquis and beta-blockers, will monitor on telemetry Hyperglycemia-in a nonfasting state-monitor daily Admission status: Patient with significant respiratory distress but no significant hypoxia. Greater than 50% chance that medically necessary treatment will only span [address] patient in observational status. If patient's respiratory distress becomes worse or hypoxia ensues, will change patient to inpatient status as medically necessary treatment will thus likely span 2 midnights ? DS: Summary Hospital Course Hospital Course: Patient presented to the emergency room after failed outpatient treatment of COPD exacerbation. He has some prednisone and antibiotics at home, started on frequent aerosol treatments here, antibiotics and steroids. He did improve from yesterday and today. He had no episodes of hypoxia but was admitted secondary to the moderately severe dyspnea. Also found to have acute UTI. At this point he is medically stable for discharge. He can follow-up with his PCP later this week. Medications see list. Status at Discharge Overall status at discharge: patient is not back to baseline Time Spent with Patient Time attestation: Total time spent providing and/or coordinating discharge services: Time spent: greater than 30 minutes Exam Constitutional Vital Signs, click to edit/add: Last Vital Signs Temp 97.5 F L 10/18/24 04:00 Pulse 81 10/18/24 06:00 Resp 18 10/18/24 05:47 BP 131/82 10/18/24 04:00 Pulse Ox 94 L 10/18/24 05:47 O2 Del Method Room Air 10/18/24 05:47 Documenting provider has reviewed patient's vital signs: yes Common normals: apparent distress (Mild to moderate conversational dyspnea) Chest Common normals: inspection of chest normal Respiratory Common normals: normal respiratory effort (Mild to moderate conversational dyspnea with persistent cough) Effort & inspection: non tachypneic and does not use accessory muscles Auscultation: rhonchi (Much improved); no wheezes Cardio Common normals: regular rate and regular rhythm GI Common normals: Normal to inspection, nondistended, normoactive bowel sounds present Common normals: no CVA tenderness and external exam normal Back & Pelvis Common normals: no CVA tenderness Extremity Common normals: normal to inspection, full ROM, normal capillary refill and no clubbing, cyanosis or edema Neuro Common normals: oriented x3 and CN's II-XII intact bilaterally DS: Data Data Completed and Pending Labs on day of discharge: Labs from last 24 hours 10/18/24 10/17/24 04:56 09:00 WBC 6.6 10.7 RBC 4.12 L 4.34 L Hgb 15.0 15.3 Hct 41.8 L 43.7 MCV 101.5 H 100.7 H MCH 36.4 H 35.3 H MCHC 35.9 H 35.0 RDW 11.9 12.1 Plt Count 324 317 MPV 10.1 10.2 Neut % (Auto) 82.9 H 60.0 Lymph % (Auto) 13.5 L 22.7 [place] % (Auto) 2.3 11.0 Eos % (Auto) 0.0 L 5.1 Baso % (Auto) 0.2 0.6 Neut # (Auto) 5.5 6.4 Lymph # (Auto) 0.9 L 2.4 [place] # (Auto) 0.2 L 1.2 H Eos # (Auto) 0.0 0.6 Baso # (Auto) 0.0 0.1 Abs Immat Gran (auto) 0.07 H 0.06 H Imm/Tot Granulo (auto) 1.1 H 0.6 H Sodium 138 137 Potassium 4.3 3.8 Chloride 103 101 Carbon Dioxide 26.3 25.5 Anion Gap 13.0 14.3 BUN 14.0 11.0 Creatinine 0.87 0.89 Est GFR ( Amer) >60 >60 Est GFR (Non-Af Amer) >60 >60 BUN/Creatinine Ratio 16.1 12.4 Glucose 202 H 175 H Calcium 9.1 9.3 Magnesium 1.8 Total Bilirubin 1.3 H Direct Bilirubin 0.4 H AST 22 ALT 24 Alkaline Phosphatase 129 H Troponin I High Sens 7.9 NT-Pro-B Natriuret Pep 228.0 Total Protein 7.8 Albumin 3.8 Globulin 4.0 Albumin/Globulin Ratio 0.9 Influenza Type A Ag Negative Influenza Type B Ag Negative SARS-CoV-2 Ag (CV2AG) Negative Discharge Plan Discharge Disposition: Home, Self-Care Condition: Fair Discharge Medications: New prednisone 20 mg tablet 60 mg PO DAILY Qty: 12 0RF cefdinir 300 mg capsule 600 mg PO DAILY Qty: 20 0RF Continued albuterol sulfate 90 mcg/actuation HFA aerosol inhaler 1 inh INHALATION DAILY Trelegy Ellipta 200-62.5-25 mcg blister with device 1 inh INHALATION DAILY ipratropium-albuterol 0.5 mg-3 mg(2.5 mg base)/3 mL solution for nebulization 3 ml inhalation TID Print Language: Yi Forms: Portal Instructions
--- NOTE | 2024-10-18 08:20 | CM.NOTE ---
Rounds made with Dr. Santoyo, pt on room air this AM and breathing back to baseline. Pt will discharge to home and f/u with PCP.
--- NOTE | 2024-10-18 09:46 | CM.NOTE ---
Medicare Outpatient Observation Notice discussed with pt, pt verbalizes understanding and signs paper. Original given to pt and copy placed on pt's chart.
--- NOTE | 2024-10-19 14:37 | CM.DCFOLLOWU ---
10/19- 1st attempt. No answer
--- NOTE | 2024-10-20 13:10 | CM.DCFOLLOWU ---
Person spoke with: Alejandro How are you feeling? Much better How is your pain? No pain Did you understand your discharge instructions? Yes Do you have any questions about your discharge instructions? No Were you given any prescriptions at discharge? Yes Were you able to get your prescriptions filled? yes Do you understand how to take your medications as ordered? Yes Do you have any questions about your follow up appointment and do you plan to keep your follow up appointment? Appt is on Friday and yes I will go to appt Is there anything else that you would like to discuss? No Questions/Comments/Concerns/Other:
== END 2024-10-18 09:32 | disposition home or self-care (01) ==
LOC: ER 10:04 → MS 10-18 05:58
PROVIDERS: Admitting Provider Family Medicine; Emergency Provider Emergency Medicine; PCP Family Medicine; Visit Provider Family Medicine
DX: J44.1 Chronic obstructive pulmonary disease with (acute) exacerbation (principal); R06.02 Shortness of breath; Z87.440 Personal history of urinary (tract) infections; I48.92 Unspecified atrial flutter; R00.0 Tachycardia, unspecified; R06.03 Acute respiratory distress; R06.00 Dyspnea, unspecified; I10 Essential (primary) hypertension; R73.9 Hyperglycemia, unspecified; N39.0 Urinary tract infection, site not specified; F17.210 Nicotine dependence, cigarettes, uncomplicated
CPT/HCPCS: 36415; 71045; 80048; 80076; 81001; 83735; 83880; 84484; 85025; 87040; 87070; 87804; 87811; 93005; 94640; 94667; 94668; 94761; 96365; 96366; 96368; 96375; 96376; 99285; 99406; G0378; J0456; J0696; J2919

== ENCOUNTER 2024-10-29 13:49 | Outpatient (OUT) | payer MEDICARE, SELFPAY ==
--- OUTSIDE RECORDS SUMMARY | 2024-10-29 14:04 | XMS_ITS | CCD ---
Author Organization [facility] Care Team Providers Care 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 Name Role Phone Sophia CEBALLOS, Elle Knowles Primary Care Provider [phone]( [phone] NOBLET JENNI, JENNI Attending Unavailable HUNTER CORTES [...] FOSSELMAN, ELLE D Primary Care Unavailable TIANA BROWN~[id number], TIANA BROWN Attending Unavailable JOSHUA, NEELAY S Referring Unavailable FOSSELMAN, ELLE D Primary Care Unavailable STORM VALDES Attending Unavailabl e JOSHUA, NEELAY S Referring Unavailable FOSSELMAN, ELLE D Primary Care Unavailable STORM VALDES Attending Unavailabl e JOSHUA, NEELAY S Referring Unavailable FOSSELMAN, ELLE D Primary Care Unavailable TIANA BROWN~[id number], TIANA BROWN Attending Unavailable SINAN AC Referring Unavailable FOSSELNASEEM ELLE D Primary Care Unavailable AVA GODFREY Attending Unavailable ASHLEEELNASEEM ELLE Besnon Primary Care Unavailable Shanell Craig Unavailable Irma Ontiveros Unavailable Dong Osorioleila Unavailable Shanell Craig Primary Care Unavailable Irma Ontiveros Attending Unavailable Irma Ontiveros Admitting Unavailable FOSSELMAN, ELLE Attending Unavailable FOSSELMAN, ELLE Attending Unavailable FOSSELMAN, ELLE Attending Unavailable FOSSELMAN, ELLE Attending Unavailable SOPHIA, ELLE Attending Unavailable ELLE CORTES Attending Unavailable MD Irma Ontiveros Attending Provider [phone] MD Shanell Craig Primary Care Provider MD Irma Ontiveros Attending Provider MD Shanell Craig Primary Care Provider [phone] LALIT CHAMBERLAIN Attending Unavailable REGINALD, ABEL Attending Unavailable TENISHABENJY Attending Unavailable REGINALD, ABEL Referring Unavailable REGINALD, ABEL Referring Unavailable REGINALD, ABEL Admitting Unavailable REGINALD, ABEL Attending Unavailable REGINALD, ABEL Attending Unavailable REGINALD, ABEL Admitting Unavailable REGINALD, ABEL Referring Unavailable REGINALD, ABEL Referring Unavailable REGINALD, ABEL Referring Unavailable REGINALD, ABEL Attending Unavailable Allergies Allergy Classification Reported Allergen(s) Allergy Type Date of Onset Reaction(s) Facility (20 sources) Adenosine; Translations: [ADENOSINE] Drug Allergy 1 Shortness of breath, anaphylaxis [facility] (20 sources) Latex; Translations: [LATEX] Drug Allergy 1 Shortness of breath [facility] (11 sources) Ibuprofen; Translations: [IBUPROFEN] Drug Allergy 1 Shortness of breath [facility] (11 sources) valsartan; Translations: [VALSARTAN] Drug Allergy 1 [facility] (1 source) Adenosine Drug Allergy 3 [facility] (1 source) Latex Drug allergy (disorder) 3 [facility] (1 source) ALLERGIES NOT ON FILE; Translations: [ALLERGIES NOT ON FILE] Propensity to adverse reactions (disorder) [facility] Repository Medications Current Medications Medication Drug Class(es) [...] hr tablet Take by mouth. 0 Active [id number] 200 actuat albuterol 0.09 mg/actuat metered dose inhaler (20 sources) beta2-Adrenergic Agonist Start: 01-06-2024 Albuterol Sulfate Active 2 INH INHALATION Every 4 hours 3 90 January 06, 2024 3:48pm Start: 01-06-2024 End: 01-06-2024 take 1 puff(s) by inhalation every four hours Albuterol Sulfate Discontinued 1 PUFF INHALATION Every 4 hours January 06, 2024 1:00am January 06, 2024 3:49pm Start: 11-14-2022 take 2 puff(s) by in halation twice daily albuterol HFA (PROAIR HFA ; PROVENTIL HFA ; VENTOLIN HFA) 90 mcg/actuation inhaler Indications: Chronic obstructive pulmonary disease, unspecified COPD type ([facility]) Inhale 2 puffs 2 (two) [...] solution (20 sources) Anticholinergic, beta2-Adrenergic Agonist Start: 01-06-2024 take 1 mL by inhalation every six hours Ipratropium-Albuterol Active 3 ML INHALATION Every 6 hours January 06, 2024 1:00am Start: 04-18-2022 End: 11-14-2022 ipratropium-albuteroL (DUONE B) 0.5-2.5 mg/3 mL nebulizer solution Indications: Chronic obstructive pulmonary disease, unspecified COPD type ([facility]) Inhale 1 vial (3ml) using nebulizer three [...] 20 tablet 0 07/12/2021 07/12/2022 Active apixaban 5 mg oral tablet (8 sources) Factor Xa Inhibitor Start: 01-06-2024 take 5 mg by mouth twice daily Apixaban Active 5 MG PO Twice daily January 06, 2024 1:00am Apixaban 5 MG 1 tab;et twice a day Active atorvastatin 10 mg oral tablet (20 sources) HMG-CoA Reductase Inhibitor Start: 01-06-2024 take 10 mg by mouth once daily Atorvastatin Active 10 MG PO Daily January 06, 2024 1:00am Start: 10-31-2021 take 1 tablet by kimberly th once daily atorvastatin (LIPITOR) 10 mg tablet [...] Active cetirizine hydrochloride 10 mg oral tablet (16 sources) Histamine-1 Receptor Antagonist Start: 01-06-2024 End: 02-10-2024 take 1 tablet by mouth once daily Cetirizine (Zyrtec) 10 mg tablet Active 10 MG PO Daily February 10, 2024 3:41pm take 1 tablet by kimberly th every twenty-four hours ZyrTEC Allergy 10 MG 1 tablet Orally Once a day Active ZyrTEC Allergy A ctive dapagliflozin 10 mg oral tablet (8 sources) Sodium-Glucose Cotransporter 2 Inhibitor Start: 01-06-2024 take 10 mg by mouth once daily Dapagliflozin Propanediol Active 10 MG PO Daily January 06, 2024 1:00am Dapagliflozin Pr opanediol 10 MG 1 tablet once a day Active Fish Oils (7 sources) take 1 capsule by mouth once daily Fish Oil 1000 MG 1 capsule Orally Once a day Active Soenwtpolls-Xnumblqob-N ilanter (3 sources) Start: 01-06-2024 Fypwmjqjonc-Ycphyszvy-Dw lanter (Trelegy Ellipta) 200-62.5-25 mcg blister with device Active 1 INH INHALATION Daily January 06, 2024 1:00am fluticasone-umeclidiniu m-vilanterol (Trelegy Ellipta) 200-62.5-25 mcg inhaler (20 sources) Start: 11-15-2022 take 1 puff(s) by mouth once daily fluticasone-umeclidinium -vilanterol (Trelegy Ellipta) 200-62.5-25 mcg inhaler Inhale 1 puff (200 mcg total) by mouth 1 (one) time each day. 60 each 4 11/15/2022 Active Start: 10-10-2022 take 1 puff(s) by mouth once daily grregueouoj-opaqjckefzfq-vcyxoytiir (Raphael legy Ellipta) 200-62.5-25 mcg inhaler Inhale 1 puff by mouth once daily 60 each 4 10/10/2022 Active Start: 05-30-2022 take 1 puff(s) by mouth once daily euecgoxziwr-yyfodrhwxrnx-asxezycjxp (Raphael legy Ellipta) 200-62.5-25 mcg inhaler Inhale 1 puff by mouth daily 60 each 4 05/30/2022 Active Start: 04-18-2022 take 1 puff(s) by mouth once daily uhtlyytqgxi-ccwuylbqbylx-ojavpybirf (Raphael legy Ellipta) 200-62.5-25 mcg inhaler Inhale 1 puff by mouth daily 60 each 4 04/18/2022 Active Start: 12-27-2021 End: 11-15-2022 take 1 puff(s) by mouth once daily xbuowiazpyp-aaldsheryszf-zhzpjzezjn (Raphael legy Ellipta) 200-62.5-25 mcg inhaler Inhale 1 puff (200 mcg total) by mouth 1 (one) time each day. 60 each 4 12/27/2021 11/15/2022 Discontinued (Reorder) Start: 12-27-2021 take 1 puff(s) by mouth once daily vuguwxrtdmd-gxhtdonxzhnb-mtnpaedvlg (Rpahael legy Ellipta) 200-62.5-25 mcg inhaler Inhale 1 puff (200 mcg total) by mouth 1 (one) time each day. 60 each 4 12/27/2021 Active Start: 12-27-2021 take 1 puff(s) by inhalation once daily gweoxxrunix-kuhsvzyduthl-bbbtxcqimm (Raphael legy Ellipta) 200-62.5-25 mcg inhaler Inhale [...] succinate 25 mg extended release oral tablet (8 sources) beta-Adrenergic Lauren Start: 01-06-2024 take 25 mg by mouth once daily Metoprolol Succinate Active 25 MG PO Daily January 06, 2024 1:00am take 1 tablet by kimberly th every twenty-four hours Metoprolol Succinate ER 25 MG 1 tablet once a day Active montelukast 10 mg oral tablet (20 sources) Leukotriene Receptor Antagonist Start: 02-27-2024 take 1 tablet by mouth once daily in the evening Montelukast Active 0 .ROUTE .COMPLEX 90 February 27, 2024 1:37pm TAKE 1 TABLET BY MOUTH EVERY EVENING Start: 01-06-2024 End: 02-27-2024 take 10 mg by mouth once daily Montelukast Discontinue d 10 MG PO Daily January 06, 2024 1:00am February 27, 2024 1:37pm Start: 01-22-2022 take 1 tablet by kimberly th once daily montelukast (SINGULAIR) 10 mg tablet Take 1 tablet (10 mg total) by mouth 1 (one) time each day. 90 tablet 3 10/10/2022 Active Multi For Him - (7 sources) Multi For Him - as directed Orally Active Multivitamin (Daily Multi-Vitamin) tablet (3 sources) Start: 01-06-2024 take 1 tablet by mouth once daily Multivitamin (Daily Multi-Vitamin) tablet Active 1 TAB PO Daily January 06, 2024 1:00am multivitamin capsule (6 sources) Start: 06-08-2007 multivitamin capsule 1 (one) time each day at the same time. 0 06/08/2007 Active predniSONE 10 mg oral tablet (12 sources) Start: 06-20-2023 predniSONE 10 MG 4 tabs po daily [...] DAYS 10 tablet 0 07/12/2021 07/12/2022 Active Trelegy Ellipta (3 sources) Trelegy Ellipta [...] Drug Class(es) Dates Sig (Normalized) Sig (Original) aspirin 81 mg delayed release oral tablet (8 sources) Platelet Aggregation Inhibitor, Nonsteroidal Anti-inflammatory Drug Start: 01-06-2024 End: 02-10-2024 take 81 mg by mouth once daily Aspirin Discontinued 81 MG PO Daily January 06, 2024 1:00am February 10, 2024 3:41pm Aspir-Low 81 MG 1 tablet once a day Active budesonide 0.25 mg/ml inhalation suspension (15 sources) [...] days 20 tablet 0 10/07/2022 11/14/2022 Discontinued dexamethasone 1 mg/ml / tobramycin 3 mg/ml ophthalmic suspension (13 sources) Aminoglycoside Antibacterial, Corticosteroid Start: 01-06-2024 End: 02-10-2024 take 1 drop(s) into the eye(s) every six hours Tobramycin-Dexameth asone Discontinued 1 DROPS OPHTHALMIC Every 6 hours January 06, 2024 1:00am February 10, 2024 3:42pm take 1 drop(s) into the eye(s) every six hours TobraDex 0.3-0.1 % 1 drop into affected eye Ophthalmic every 6 hrs for 7 days Active take 1 drop(s) into the eye(s) every six hours TobraDex 0.3-0.1 % 1 drop into affected eye Ophthalmic every 6 hrs for 7 days Active docosahexaenoic acid 120 mg / eicosapentaenoic acid 180 mg oral capsule (1 source) End: 11-14-2022 docosahexaenoic acid-epa 120-180 mg capsule esomeprazole 40 mg delayed release oral capsule (19 sources) Proton Pump Inhibitor Start: 01-06-2024 End: 02-10-2024 take 40 mg by mouth once daily Esomeprazole Magnesium Discontinued 40 MG PO Daily January 06, 2024 1:00am February 10, 2024 3:41pm Start: 01-28-2018 esomeprazole ( NexIUM) [address] capsule 1 capsule 0 01/28/2018 Active Esomeprazole Mag nesium 20 MG 1 tablet every 2-3 days Active famotidine 20 mg oral tablet (1 source) Histamine-2 Receptor Antagonist Start: 12-03-2019 End: 11-14-2022 famotidine (PEPCID) 20 mg tablet Take 1 tablet (20 mg total) by mouth. 0 12/03/2019 11/14/2022 Discontinued fluticasone propionate 0.05 mg/actuat metered dose nasal spray (13 sources) Corticosteroid Start: 01-06-2024 End: 02-10-2024 Fluticasone Propionate Discontinued 1 SPRAY INTRANASAL Daily January 06, 2024 1:00am February 10, 2024 3:42pm take 1 spray(s) nasal route once daily Fluticasone Propionate 50 MCG/ACT 1 spray in each nostril Nasally Once a day Active take 1 spray(s) nasal route once daily Fluticasone Propionate 50 MCG/ACT 1 spray in each nostril Nasally Once a day Active Fluticasone Furo ate Active Letcher 2-Bkw-Jeh-Fish Oil (Fish Oil) 1,000 mg (120 mg-180 mg) capsule (3 sources) Start: 01-06-2024 End: 02-10-2024 take 1 capsule by mouth once daily Letcher 4-Ikl-Cfw-Fish Oil (Fish Oil) 1,000 mg (120 mg-180 mg) capsule Discontinued 1 CAP PO Daily January 06, 2024 1:00am February 10, 2024 3:42pm Roflumilast (4 sources) Phosphodiesterase 4 Inhibitor Start: 02-10-2024 End: 05-18-2024 take 1 tablet by mouth once daily Roflumilast (Daliresp) 250 mcg tablet Discontinued 250 MCG PO Daily February 10, 2024 12:00am May 18, 2024 2:44pm Start: 02-10-2024 End: 05-18-2024 take 1 tablet by mouth once daily Roflumilast (Daliresp) 500 mcg tablet Discontinued 500 MCG PO Daily February 10, 2024 12:00am May 18, 2024 2:44pm Start: 02-10-2024 take 1 tablet by kimberly th once daily Roflumilast (Daliresp) 250 mcg tablet Active 250 MCG PO Daily February 10, 2024 12:00am Start: 02-10-2024 take 1 tablet by kimberly th once daily Roflumilast (Daliresp) 500 mcg tablet Active 500 MCG PO Daily February 10, 2024 12:00am spironolactone 25 mg oral tablet (8 sources) Aldosterone Antagonist Start: 01-06-2024 End: 02-23-2024 take 25 mg by mouth once daily Spironolactone Discontinued 25 MG PO Daily January 06, 2024 1:00am February 23, 2024 10:45am take 1 tablet by kimberly th every twenty-four hours Spironolactone 25 MG 1 tablet once a day Active traMADol hydrochloride 50 mg oral tablet (19 sources) Opioid Agonist Start: 01-06-2024 End: 02-10-2024 take 50 mg by mouth once daily Tramadol Discontinued 50 MG PO Daily January 06, 2024 1:00am February 10, 2024 3:42pm Start: 04-22-2022 take 1 tablet by kimberly th every six hours as needed traMADoL (ULTRAM) 50 mg tablet take 1 tablet by mouth every 6 hours as needed for pain 20 tablet 0 04/22/2022 Active take 1 tablet by kimberly th every twenty-four hours traMADol HCl 50 MG 1 tablet as needed Orally Once a day Active Problems Active Problems Problem Classification Problem Date Documented Da te Episodic/Chronic Cardiac dysrhythmias (20 sources) Atrial flutter; Translations: [Unspecified atrial flutter] Onset: 10-22-2023 Chronic Cardiac dysrhythmias (2 sources) Palpitations; Translations: [Palpitations] Onset: 10-18-2024 Episodic Chronic obstructive pulmonary disease and bronchiectasis (20 sources) Chronic obstructive lung disease; Translations: [Chronic obstructive pulmonary disease, unspecified] Onset: 03-03-2023 Chronic Congestive heart failure; nonhypertensive (12 sources) Chronic systolic heart failure; Translations: [Chronic [...] [Pain in left shoulder] Onset: 02-06-2022 Episodic Septicemia (except in labor) (1 source) [...] [Nicotine dependence, unspecified, uncomplicated] Onset: 11-18-2022 Chronic Past or Other Problems Problem Classification Problem Date Documented Date Episodic/Chronic Other circulatory disease (2 sources) Personal history of other diseases of the circulatory system; Translations: [Personal history of other diseases of the circulatory system] Onset: 02-20-2024 Episodic Residual codes; unclassified (2 sources) Other specified postprocedural states; Translations: [Other specified postprocedural states] Onset: 02-20-2024 Episodic Residual codes; unclassified (2 sources) Tobacco use; Translations: [Tobacco use] Onset: 10-22-2023 Episodic Results Test Name Value Interpretation Reference Range Facility Office Visiton 06-22-2024 Follow-up visit [id number] Alejandro Maradiaga 1955 M Date Provider Department Center 06/22/2024 [facility]RES [facility] Family History Problem Relation Age of Onset Stroke Mother Family Status - Relation Status Age at Mother Level of Service:98500 DC OFFICE/OUTPATIENT ESTABLISHED LOW MDM 20 MIN Normal [facility] HPon 03-17-2024 [facility] Electrophysiology Consult Note Reason for visit: Afib HPI: Alejandro Maradiaga is a 68 y.o. year old with past medical history of atrial flutter with rapid ventricular rate with associated systolic heart failure. Examination of his evaluation of cardiomyopathy he underwent a cardiac cath and there was no significant CAD to explain that subsequently he underwent TESS with cardioversion. He has felt better since then. Denies chest pain, palpitations, lightheadedness/synco pe, and bleeding on Eliquis. Goes to cardiac rehab at [facility] a few times a week. Had BMP/MG drawn yesterday. C/o fatigue and weakness. Urinating a lot during the night. He is s/p CTI ablation and now comes for LOOP PMH: Past Medical History: Diagnosis Date Abnormal ECG Arrhythmia Atrial fibrillation (CMS/HCC) CHF (congestive heart failure) (CMS/HCC) PSH: Past Surgical History: Procedure Laterality Date ANKLE SURGERY CARDIAC CATHETERIZATION CARDIOVERSION NECK SURGERY SH: Social Determinants of Health Tobacco Use: High Risk (02/20/2024) Patient History Smoking Tobacco Use: Every Day Smokeless Tobacco Use: Never Passive Exposure: Not on file Alcohol Use: Not on file Financial Resource Strain: Low Risk (10/15/2023) Overall Financial Resource Strain (CARDIA) Difficulty of Paying Living Expenses: Not hard at all Food Insecurity: No Food Insecurity (10/15/2023) Hunger Vital Sign Worried About Running Out of Food in the Last Year: Never true Ran Out of Food in the Last Year: Not on file Transportation Needs: No Transportation Needs (10/15/2023) Transportation Lack of Transportation (Medical): No Lack of Transportation (Non-Medical): Not on file Physical Activity: Not on file Stress: Not on file Social Connections: Not on file Intimate Partner Violence: Not At Risk (10/15/2023) [place] Safety & Environment Fear of Current or Ex-Partner: No Emotionally Abused: Not on file Physically Abused: Not on file Sexually Abused: Not on file Physically or Sexually Abused: Not on file Depression: Not on file Housing Stability: Low Risk (10/15/2023) Housing Stability Vital Sign Unable to Pay for Housing in the Last Year: Not on file Number of Places Lived in the Last Year: Not on file Unstable Housing in the Last Year: No Utilities: Not on file Allergies: Allergies Allergen Reactions Adenosine Anaphylaxis Latex Shortness of breath Weight: 73kg Visit Vitals BP 118/63 Pulse 75 Resp 16 Wt 73 kg (161 lb) SpO2 99% BMI 22.45 kg/m??? Smoking Status Every Day BSA 1.91 m??? Meds: No current facility-administered medications on file prior to encounter. Current Outpatient Medications on File Prior to Encounter Medication Sig Dispense Refill albuterol 90 mcg/actuation inhaler Inhale 1 puff in the morning. apixaban (Eliquis) 5 mg tablet Take 1 tablet (5 mg) by mouth in the morning and at bedtime. 180 tablet 3 atorvastatin (Lipitor) 10 mg tablet Take 1 tablet (10 mg) by mouth at bedtime. 90 tablet 3 dapagliflozin propanediol (Farxiga) 10 mg Take 1 tablet (10 mg) by mouth in the morning. 90 tablet 3 ipratropium-albuteroL (Duo-Neb) 0.5-2.5 mg/3 mL nebulizer solution [...] Take 10 mg by mouth at bedtime. fluticasone-umeclidin -vilanter 200-62.5-25 mcg blister with device Inhale in the morning. nicotine (Nicoderm CQ) 14 mg/[address] 1 patch on the skin 1 (one) time each day at the same time. Apply 14mg patch daily x6 weeks then 7mg patch daily x 2 weeks; remove old patch before applying new patch; can repeat if needed (Patient not taking: Reported on 01/21/2024) 45 patch 3 nicotine (Nicoderm CQ) 7 mg/[address] 1 patch on the skin 1 (one) time each day at the same time for 14 days. Apply 14mg patch daily x6 weeks then 7mg patch daily x 2 weeks; remove old patch before applying new patch; can repeat if needed (Patient not taking: Reported on 01/21/2024) 14 patch 3 ROS: Review of Systems Constitutional: Positive for [...] ear Nose: no lesions on external nose Oropharynx (more content not included)... [facility] NURSNOTEon 03-17-2024 NURSNOTE RN educated pt on d/ c instructions. RN encouraged pt to voice any questions or concerns. Pt verbalizes no questions or concerns at this time. Pt was walked off of unit with all of belongings. [facility] 37on 02-20-2024 37 Hold aldactone r/t skin rash- if no improvement please see Dermatology Monitor b/p at home - goal is less than 130/80- *Continue heart healthy diet and low sodium diet. *Monitor daily weights, fluid restriction 1.5-2Liters/day, lab work to check kidney/renal function and electrolytes *Call office for weight gain of 2 pounds in 1 day or 5 pounds in 1 week, increased leg swelling, shortness of breath or shortness of breath at night and having to sleep sitting up taller/more pillows than normal or in recliner. Normal [facility] Office Visiton 02-20-2024 Follow-up visit [id number] Alejandro Maradiaga A 1955 M Date Provider Department Center 02/20/2024 120-BENJY STEVEN [facility] Family History Problem Relation Age of Onset Stroke Mother Family Status - Relation Status Age at Mother Level of Service:10651 DC OFFICE/OUTPATIENT ESTABLISHED MOD MDM 30 MIN Normal [facility] Documentationon 01-22-2024 Documentation [id number] Alejandro Maradiaga Edwardo 1955 M [facility] Provider Department Center 01/22/2024 ABEL TORRES [facility] Family History Problem Relation Age of Onset Stroke Mother Family Status - Relation Status Age at Mother [facility] ANESon 01-21-2024 ANES - Attestation signed by Abel Castaneda MD at 01/21/2024 1:03 PM By using the attestations below, the [...] personal documentation from me. Patient: Alejandro Maradiaga Procedure Information Date/Time: 01/21/241499 Procedure: Ablation atrial flutter Location: [facility] / [facility] (Cath) Providers: Abel Castaneda MD Clinical information reviewed: Allergies Meds Physical Exam Airway Mallampati: III Cardiovascular - normal exam Dental Pulmonary - normal exam Abdominal - normal exam Anesthesia Plan ASA 3 CSE Anesthetic plan and risks discussed with patient. Use of blood products discussed with patient who consented to blood products. Plan discussed with attending. Additional Equipment Requests Normal [facility] HPon 01-21-2024 - Attestation signed by Abel Castaneda MD at 01/21/2024 1:03 PM By using the attestations below, the [...] be an additional personal documentation from me. HPI: Alejandro Maradiaga is a 68 y.o. male presented emergency department as a transfer from [facility] for uncontrolled atrial flutter. Patient eventually presented to [facility] on 10/13/2020 treated with chief complaint of [...] possible cardioversion by cardiology here at [facility]. Echocardiogram revealed atrial flutter with right [...] Neurological: General: No focal deficit present. Mental Status (more content not included)... Normal [facility] NURSNOTEon 01-21-2024 NURSNOTE RN educated pt on d/ c instructions. RN encouraged pt to voice any questions or concerns. Pt verbalizes no questions or concerns at this time. Pt was wheeled off of unit with all of belongings. Normal [facility] Basophils Auto (Bld) [#/Vol] on 01-15-2024 Basophils (Bld) [#/Vol] 0.1 10 3/uL 0.0-0.1 [facility] Basophils/100 WBC Auto (Bld) on 01-15-2024 Basophils/100 WBC (Bld) 1.0 % 0.2-2.0 [facility] Eosinophils/100 WBC Auto (Bl d)on 01-15-2024 Eosinophils/100 WBC (Bld) 6.7 % 0.9-7.0 [facility] Erythrocyte distribution wid th Auto (RBC) [Ratio]on 01-15-2024 Erythrocyte distribution width (RBC) [Ratio] 13.7 % 11.0-15.0 [facility] Estimated glomerular filtrat ion rate (GFR) non- Americanon 01-15-2024 GFR/1.73 sq M.predicted among non-blacks MDRD (S/P/Bld) [Vol rate/Area] mL/min/{1.73_m2} >=60 [facility] Hematocrit Auto (Bld) [Volum e fraction]on 01-15-2024 Hematocrit (Bld) [Volume fraction] 42.8 % 42.0-54.0 [facility] Hemoglobin [Mass/volume] in Bloodon 01-15-2024 Hemoglobin (Bld) [Mass/Vol] 14.1 g/dL 14.0-18.0 [facility] Laboratory - Chemistry and C hemistry - challengeon 01-15-2024 Calcium [Mass/Vol] 9.1 mg/dL 8.5-10.1 [facility] Chloride [Moles/Vol] 98 mmol/L 98-107 [facility] CO2 [Moles/Vol] 26.6 mmol/L 21.0-32.0 [facility] Creatinine [Mass/Vol] 0.85 mg/dL 0.70-1.30 [facility] GFR/1.73 sq M.predicted MDRD (S/P/Bld) [Vol rate/Area] mL/min/{1.73_m2} >=60 [facility] Glucose [Mass/Vol] 173 mg/dL 74-106 [facility] Potassium [Moles/Vol] 4.2 mmol/L 3.5-5.1 [facility] Sodium [Moles/Vol] 136 mmol/L 136-145 [facility] Urea nitrogen [Mass/Vol] 15.0 mg/dL 7.0-18.0 [facility] Urea nitrogen/Creatinine [Mass ratio] 17.6 mg/mg [facility] - Hematology and Cell countson 01-15-2024 Immature granulocytes/100 WBC (Bld) 0.5 % 0.0-0.5 [facility] Leukocytes [#/volume] correc conchis for nucleated erythrocytes in Blood by Automated counon 01-15-2024 WBC corrected for nucl RBC Auto (Bld) [#/Vol] 8.0 10 3/uL 4.0-11.0 [facility] Lymphocytes Auto (Bld) [#/Vo l]on 01-15-2024 Lymphocytes (Bld) [#/Vol] 2.7 10 3/uL 1.2-3.8 [facility] Lymphocytes/100 WBC Auto (Bl d)on 01-15-2024 Lymphocytes/100 WBC (Bld) 34.0 % 20.5-60.0 [facility] MCH Auto (RBC) [Entitic mass ]on 01-15-2024 MCH (RBC) [Entitic mass] 33.9 pg 25.9-34.0 [facility] MCHC Auto (RBC) [Mass/Vol]on 01-15-2024 MCHC (RBC) [Mass/Vol] 32.9 g/dL 29.9-35.2 [facility] MCV Auto (RBC) [Entitic vol] on 01-15-2024 MCV (RBC) [Entitic vol] 102.9 fL 80.0-94.0 [facility] Monocytes Auto (Bld) [#/Vol] on 01-15-2024 Monocytes (Bld) [#/Vol] 0.7 10 3/uL 0.3-0.8 [facility] Monocytes/100 WBC Auto (Bld) on 01-15-2024 Monocytes/100 WBC (Bld) 9.1 % 1.7-12.0 [facility] Neutrophils Auto (Bld) [#/Vo l]on 01-15-2024 Neutrophils (Bld) [#/Vol] 3.9 10 3/uL 1.4-6.5 [facility] Neutrophils/100 WBC Auto (Bl d)on 01-15-2024 Neutrophils/100 WBC (Bld) 48.7 % 43.0-75.0 [facility] No Panel Informationon 01-14 Eosinophils # (Auto) 0.5 10 3/uL 0.0-0.7 [facility] Immature Granulocyte # (Auto) 0.04 10 3/uL 0.00-0.03 [facility] Platelet mean volume Auto (B ld) [Entitic vol]on 01-15-2024 Platelet mean volume (Bld) [Entitic vol] 9.5 fL 9.5-13.5 [facility] Platelets Auto (Bld) [#/Vol] on 01-15-2024 Platelets (Bld) [#/Vol] 297 10 3/uL 150-450 [facility] RBC Auto (Bld) [#/Vol]on RBC (Bld) [#/Vol] 4.16 10 6/uL 4.70-6.10 [facility] Serum or plasma anion gap de terminationon 01-15-2024 Anion gap [Moles/Vol] 15.6 mmol/L [facility] Orders Onlyon 01-13-2024 Orders Only [id number] Alejandro Maradiaga 1955 M Date Provider Department Center 01/13/2024 LUIS EID [facility] Family History Problem Relation Age of Onset Stroke Mother Family Status - Relation Status Age at Mother Normal [facility] Office Visiton 12-16-2023 Follow-up visit [id number] Alejandro Maradiaga 1955 M Date Provider Department Center 12/16/2023 ABEL TORRES [facility] Family History Problem Relation Age of Onset Stroke Mother Family Status - Relation Status Age at Mother Level of Service:37353 DC OFFICE/OUTPATIENT [facility] 60 MINUTES Normal [facility] CT lung screeningon 11-27-[address] lung screening [facility] Main [place] [address] [place] [address] CT Scan Report Signed Patient: Alejandro Maradiaga MR#: [id number] 530 : 1955 Acct:[id number] Age/Sex: 68 / M ADM Date: 11/27/23 Loc: [facility] Room: Type: [facility] Attending Dr: Irma Ontiveros MD Copies [...] Davidson Jr., D.O.11/27/2023 2:10 PM Dictation Location: [facility]- Transcribed By: [facility] 11/27/23 1410 Dictated By: Asim Davdison Jr, DO 11/27/23 1406 Signed By: 11/27/23 1410 [facility] Follow-Upon 10-22-2023 Follow-Up [id number] Alejandro Maradiaga 1955 M Date Provider Department Center 10/22/2023 Da-LALIT CHAMBERLAIN C[facility] Family History Problem Relation Age of Onset Stroke Mother Family Status - Relation Status Age at Mother Level of Service:52122 DC OFFICE/OUTPATIENT ESTABLISHED MOD MDM 30-39 MIN Reason for Visit and Comments: Hospital Follow-up [832] Atrial Flutter [101] Congestive Heart Failure [127] Normal [facility] CBC with differential (COPC) on 01-16-2023 BASO # 0.1 K CUMM Normal 0.0-0.2 [facility] Comment on above: Order Comment: Items in this order include: Comprehensive Metabolic Panel, Lipid Panel, Free T4, PSA (Screening Medicare Only), TSH, CBC with differential, Testing Performed By: [facility] [address] [place] [address] CLIA#:[id number] [address] Abbe Celeste, Bottle Selector Performed By: #### C 4125, C408, C215, C47, C400, C8 #### [facility] [address] [place] [address] Basophils/100 WBC (Bld) 1.1 % Normal 0.0-3.0 [facility] Comment on above: Order Comment: Items in this order include: Comprehensive Metabolic Panel, Lipid Panel, Free T4, PSA (Screening Medicare Only), TSH, CBC with differential, Testing Performed By: [facility] [address] [place] [address] CLIA#:[id number] [address] Abbe Celeste, Bottle Selector Performed By: #### C 4125, C408, C215, C47, C400, C8 #### [facility] [address] [place] [address] EOS # 0.7 K CUMM High 0.0-0.4 [facility] Comment on above: Order Comment: Items in this order include: Comprehensive Metabolic Panel, Lipid Panel, Free T4, PSA (Screening Medicare Only), TSH, CBC with differential, Testing Performed By: [facility] [address] [place] [address] CLIA#:[id number] [address] Abbe Celeste, Bottle Selector Performed By: #### C 4125, C408, C215, C47, C400, C8 #### [facility] [address] [place] [address] Eosinophils/100 WBC (Bld) 9.5 % High 0.0-7.0 [facility] Comment on above: Order Comment: Items in this order include: Comprehensive Metabolic Panel, Lipid Panel, Free T4, PSA (Screening Medicare Only), TSH, CBC with differential, Testing Performed By: [facility] [address] [place] [address] CLIA#:[id number] [address] Abbe Celeste, Bottle Selector Performed By: #### C 4125, C408, C215, C47, C400, C8 #### [facility] [address] [place] [address] Erythrocyte distribution width (RBC) [Ratio] 13.4 % Normal 11.5-15.5 [facility] Comment on above: Order Comment: Items in this order include: Comprehensive Metabolic Panel, Lipid Panel, Free T4, PSA (Screening Medicare Only), TSH, CBC with differential, Testing Performed By: [facility] [address] [place] [address] CLIA#:[id number] Dr. Abbe Celeste, Bottle Selector Performed By: #### C 4125, C408, C215, C47, C400, C8 #### [facility] [address] [place] [address] Hematocrit (Bld) [Volume fraction] 45.6 % Normal 42.0-52.0 [facility] Comment on above: Order Comment: Items in this order include: Comprehensive Metabolic Panel, Lipid Panel, Free T4, PSA (Screening Medicare Only), TSH, CBC with differential, Testing Performed By: [facility] [address] [place] [address] CLIA#:[id number] [address]. Abbe Celeste, Bottle Selector Performed By: #### C 4125, C408, C215, C47, C400, C8 #### [facility] [address] [place] [address] Hemoglobin (Bld) [Mass/Vol] 15.9 g/dL Normal 13.5-18.0 [facility] Comment on above: Order Comment: Items in this order include: Comprehensive Metabolic Panel, Lipid Panel, Free T4, PSA (Screening Medicare Only), TSH, CBC with differential, Testing Performed By: [facility] [address] [place] [address] CLIA#:[id number] [address] Abbe Celeste, Bottle Selector Performed By: #### C 4125, C408, C215, C47, C400, C8 #### [facility] [address] [place] [address] ImmGrn # 0.0 K CUMM Normal 0.0-0.3 [facility] Comment on above: Order Comment: Items in this order include: Comprehensive Metabolic Panel, Lipid Panel, Free T4, PSA (Screening Medicare Only), TSH, CBC with differential, Testing Performed By: [facility] [address] [place] [address] CLIA#:[id number] [address] Abbe Celeste, Bottle Selector Performed By: #### C 4125, C408, C215, C47, C400, C8 #### [facility] [address] [place] [address] ImmGrn % 0.6 % Normal 0.0-3.0 [facility] Comment on above: Order Comment: Items in this order include: Comprehensive Metabolic Panel, Lipid Panel, Free T4, PSA (Screening Medicare Only), TSH, CBC with differential, Testing Performed By: [facility] [address] [place] [address] CLIA#:[id number] [address]. Abbe Celeste, Bottle Selector Performed By: #### C 4125, C408, C215, C47, C400, C8 #### [facility] [address] [place] [address] LYMPH # 2.7 K CUMM Normal 0.7-4.5 [facility] Comment on above: Order Comment: Items in this order include: Comprehensive Metabolic Panel, Lipid Panel, Free T4, PSA (Screening Medicare Only), TSH, CBC with differential, Testing Performed By: [facility] [address] [place] [address] CLIA#:[id number] [address] Abbe Celeste, Bottle Selector Performed By: #### C 4125, C408, C215, C47, C400, C8 #### [facility] [address] [place] [address] Lymphocytes/100 WBC (Bld) 38.3 % Normal 14.0-46.0 [facility] Comment on above: Order Comment: Items in this order include: Comprehensive Metabolic Panel, Lipid Panel, Free T4, PSA (Screening Medicare Only), TSH, CBC with differential, Testing Performed By: [facility] [address] [place] [address] CLIA#:[id number] Dr. Abbe Celeste, Bottle Selector Performed By: #### C 4125, C408, C215, C47, C400, C8 #### [facility] [address] [place] [address] MCH (RBC) [Entitic mass] 37.6 pg High 27.0-31.0 [facility] Comment on above: Order Comment: Items in this order include: Comprehensive Metabolic Panel, Lipid Panel, Free T4, PSA (Screening Medicare Only), TSH, CBC with differential, Testing Performed By: [facility] [address] [place] [address] CLIA#:[id number] [address] Abbe Celeste, Bottle Selector Performed By: #### C 4125, C408, C215, C47, C400, C8 #### [facility] [address] [place] [address] MCHC (RBC) [Mass/Vol] 34.9 g/dL Normal 32.0-36.0 [facility] Comment on above: Order Comment: Items in this order include: Comprehensive Metabolic Panel, Lipid Panel, Free T4, PSA (Screening Medicare Only), TSH, CBC with differential, Testing Performed By: [facility] [address] [place] [address] CLIA#:[id number] [address] Abbe Celeste, Bottle Selector Performed By: #### C 4125, C408, C215, C47, C400, C8 #### [facility] [address] [place] [address] [address] [place] [address] MCV (RBC) [Entitic vol] 107.8 fL High 78.0-100.0 [facility] Comment on above: Order Comment: Items in this order include: Comprehensive Metabolic Panel, Lipid Panel, Free T4, PSA (Screening Medicare Only), TSH, CBC with differential, Testing Performed By: [facility] [address] [place] [address] CLIA#:[id number] [address] Abbe Celeste, Bottle Selector Performed By: #### C 4125, C408, C215, C47, C400, C8 #### [facility] [address] [place] [address] MONO # 0.7 K CUMM Normal 0.1-1.0 [facility] Comment on above: Order Comment: Items in this order include: Comprehensive Metabolic Panel, Lipid Panel, Free T4, PSA (Screening Medicare Only), TSH, CBC with differential, Testing Performed By: [facility] [address] [place] [address] CLIA#:[id number] Dr. Abbe Celeste, Bottle Selector Performed By: #### C 4125, C408, C215, C47, C400, C8 #### [facility] [address] [place] [address] Monocytes/100 WBC (Bld) 9.6 % Normal 4.0-13.0 [facility] Comment on above: Order Comment: Items in this order include: Comprehensive Metabolic Panel, Lipid Panel, Free T4, PSA (Screening Medicare Only), TSH, CBC with differential, Testing Performed By: [facility] [address] [place] [address] CLIA#:[id number] [address] Abbe Celeste, Bottle Selector Performed By: #### C 4125, C408, C215, C47, C400, C8 #### [facility] [address] [place] [address] DANIEL # 2.9 K CUMM Normal 1.8-7.8 [facility] Comment on above: Order Comment: Items in this order include: Comprehensive Metabolic Panel, Lipid Panel, Free T4, PSA (Screening Medicare Only), TSH, CBC with differential, Testing Performed By: [facility] [address] [place] [address] CLIA#:[id number] [address] Abbe Celeste, Bottle Selector Performed By: #### C 4125, C408, C215, C47, C400, C8 #### [facility] [address] [place] [address] Neutrophils/100 WBC (Bld) 40.9 % Normal 40.0-74.0 [facility] Comment on above: Order Comment: Items in this order include: Comprehensive Metabolic Panel, Lipid Panel, Free T4, PSA (Screening Medicare Only), TSH, CBC with differential, Testing Performed By: [facility] [address] [place] [address] CLIA#:[id number] [address] Abbe Celeste, Bottle Selector Performed By: #### C 4125, C408, C215, C47, C400, C8 #### [facility] [address] [place] [address] Platelet mean volume (Bld) [Entitic vol] 11.0 fL Normal 8.9-12.6 [facility] Comment on above: Order Comment: Items in this order include: Comprehensive Metabolic Panel, Lipid Panel, Free T4, PSA (Screening Medicare Only), TSH, CBC with differential, Testing Performed By: [facility] [address] [place] [address] CLIA#:[id number] [address] Abbe Celeste, Bottle Selector Performed By: #### C 4125, C408, C215, C47, C400, C8 #### [facility] [address] [place] [address] PLT 276 K CUMM Normal 130-400 [facility] Comment on above: Order Comment: Items in this order include: Comprehensive Metabolic Panel, Lipid Panel, Free T4, PSA (Screening Medicare Only), TSH, CBC with differential, Testing Performed By: [facility] [address] [place] [address] CLIA#:[id number] Dr. Abbe Celeste, Bottle Selector Performed By: #### C 4125, C408, C215, C47, C400, C8 #### [facility] [address] [place] [address] RBC 4.23 M CUMM Normal 4.20-5.80 [facility] Comment on above: Order Comment: Items in this order include: Comprehensive Metabolic Panel, Lipid Panel, Free T4, PSA (Screening Medicare Only), TSH, CBC with differential, Testing Performed By: [facility] [address] [place] [address] CLIA#:[id number] [address] Abbe Celeste, Bottle Selector Performed By: #### C 4125, C408, C215, C47, C400, C8 #### [facility] [address] [place] [address] WBC 7.1 K CUMM Normal 3.8-10.6 [facility] Comment on above: Order Comment: Items in this order include: Comprehensive Metabolic Panel, Lipid Panel, Free T4, PSA (Screening Medicare Only), TSH, CBC with differential, Testing Performed By: [facility] [address] [place] [address] CLIA#:[id number] [address] Abbe Celeste, Bottle Selector Performed By: #### C 4125, C408, C215, C47, C400, C8 #### [facility] [address] [place] [address] Comprehensive Metabolic Pane l ([facility])on 01-16-2023 Albumin [Mass/Vol] 4.5 g/dL Normal 3.2-4.8 [facility] Comment on above: Order Comment: Items in this order include: Comprehensive Metabolic Panel, Lipid Panel, Free T4, PSA (Screening Medicare Only), TSH, CBC with differential, Testing Performed By: [facility] [address] [place] [address] CLIA#:[id number] [address] Abbe Celeste, Bottle Selector Performed By: #### C 4125, C408, C215, C47, C400, C8 #### [facility] [address] [place] [address] Albumin/Globulin [Mass ratio] 1.6 {ratio} Normal 1.3-2.1 [facility] Comment on above: Order Comment: Items in this order include: Comprehensive Metabolic Panel, Lipid Panel, Free T4, PSA (Screening Medicare Only), TSH, CBC with differential, Testing Performed By: [facility] [address] [place] [address] CLIA#:[id number] [address] Abbe Celeste, Bottle Selector Performed By: #### C 4125, C408, C215, C47, C400, C8 #### [facility] [address] [place] [address] Alk Phos 82 U/L Normal 40-127 [facility] Comment on above: Order Comment: Items in this order include: Comprehensive Metabolic Panel, Lipid Panel, Free T4, PSA (Screening Medicare Only), TSH, CBC with differential, Testing Performed By: [facility] [address] [place] [address] CLIA#:[id number] [address]. Abbe Celeste, Bottle Selector Performed By: #### C 4125, C408, C215, C47, C400, C8 #### [facility] [address] [place] [address] ALT [Catalytic activity/Vol] 72 U/L High 10-49 [facility] Comment on above: Order Comment: Items in this order include: Comprehensive Metabolic Panel, Lipid Panel, Free T4, PSA (Screening Medicare Only), TSH, CBC with differential, Testing Performed By: [facility] [address] [place] [address] CLIA#:[id number] [address] Abbe Celeste, Bottle Selector Performed By: #### C 4125, C408, C215, C47, C400, C8 #### [facility] [address] [place] [address] AST [Catalytic activity/Vol] 63 U/L High <34 [facility] Comment on above: Order Comment: Items in this order include: Comprehensive Metabolic Panel, Lipid Panel, Free T4, PSA (Screening Medicare Only), TSH, CBC with differential, Testing Performed By: [facility] [address] [place] [address] CLIA#:[id number] [address] Abbe Celeste, Bottle Selector Performed By: #### C 4125, C408, C215, C47, C400, C8 #### [facility] [address] [place] [address] B/C Ratio 15.0 Ratio Normal 10.0-28.6 [facility] Comment on above: Order Comment: Items in this order include: Comprehensive Metabolic Panel, Lipid Panel, Free T4, PSA (Screening Medicare Only), TSH, CBC with differential, Testing Performed By: [facility] [address] [place] [address] CLIA#:[id number] [address] Abbe Celeste, Bottle Selector Performed By: #### C 4125, C408, C215, C47, C400, C8 #### [facility] [address] [place] [address] Bilirubin [Mass/Vol] 1.3 mg/dL High 0.3-1.2 [facility] Comment on above: Order Comment: Items in this order include: Comprehensive Metabolic Panel, Lipid Panel, Free T4, PSA (Screening Medicare Only), TSH, CBC with differential, Testing Performed By: [facility] [address] [place] [address] CLIA#:[id number] [address] Abbe Celeste, Bottle Selector Performed By: #### C 4125, C408, C215, C47, C400, C8 #### [facility] [address] [place] [address] Calcium [Mass/Vol] 9.8 mg/dL Normal 8.3-10.6 [facility] Comment on above: Order Comment: Items in this order include: Comprehensive Metabolic Panel, Lipid Panel, Free T4, PSA (Screening Medicare Only), TSH, CBC with differential, Testing Performed By: [facility] [address] [place] [address] CLIA#:[id number] [address] Abbe Celeste, Bottle Selector Performed By: #### C 4125, C408, C215, C47, C400, C8 #### [facility] [address] [place] [address] Chloride [Moles/Vol] 103 mmol/L Normal 98-107 [facility] Comment on above: Order Comment: Items in this order include: Comprehensive Metabolic Panel, Lipid Panel, Free T4, PSA (Screening Medicare Only), TSH, CBC with differential, Testing Performed By: [facility] [address] [place] [address] CLIA#:[id number] [address] Abbe Celeste, Bottle Selector Performed By: #### C 4125, C408, C215, C47, C400, C8 #### [facility] [address] [place] [address] CO2 [Moles/Vol] 25 mmol/L Normal 20-31 [facility] Comment on above: Order Comment: Items in this order include: Comprehensive Metabolic Panel, Lipid Panel, Free T4, PSA (Screening Medicare Only), TSH, CBC with differential, Testing Performed By: [facility] [address] [place] [address] CLIA#:[id number] [address] Abbe Celeste, Bottle Selector Performed By: #### C 4125, C408, C215, C47, C400, C8 #### [facility] [address] [place] [address] Creatinine [Mass/Vol] 0.8 mg/dL Normal 0.7-1.3 [facility] Comment on above: Order Comment: Items in this order include: Comprehensive Metabolic Panel, Lipid Panel, Free T4, PSA (Screening Medicare Only), TSH, CBC with differential, Testing Performed By: [facility] [address] [place] [address] CLIA#:[id number] [address] Abbe Celeste, Bottle Selector Performed By: #### C 4125, C408, C215, C47, C400, C8 #### [facility] [facility] [place] [address] GFRCKD 97 mL/min per 1.73 Normal >60 [facility] Comment on above: Order Comment: Items in this order include: Comprehensive Metabolic Panel, Lipid Panel, Free T4, PSA (Screening Medicare Only), TSH, CBC with differential, Testing Performed By: [facility] [address] [place] [address] CLIA#:[id number] Dr. Abbe Celeste, Bottle Selector Result Comment: The GFR estimate is not adjusted for race. Performed By: #### C 4125, C408, C215, C47, C400, C8 #### [facility] [address] [place] [address] Globulin (S) [Mass/Vol] 2.8 g/dL Normal [facility] Comment on above: Order Comment: Items in this order include: Comprehensive Metabolic Panel, Lipid Panel, Free T4, PSA (Screening Medicare Only), TSH, CBC with differential, Testing Performed By: [facility] [address] [place] [address] CLIA#:[id number] [address] Abbe Celeste, Bottle Selector Performed By: #### C 4125, C408, C215, C47, C400, C8 #### [facility] [address] [place] [address] Glucose [Mass/Vol] 101 mg/dL Normal 74-106 [facility] Comment on above: Order Comment: Items in this order include: Comprehensive Metabolic Panel, Lipid Panel, Free T4, PSA (Screening Medicare Only), TSH, CBC with differential, Testing Performed By: [facility] [address] [place] [address] CLIA#:[id number] [address] Abbe Celeste, Bottle Selector Performed By: #### C 4125, C408, C215, C47, C400, C8 #### [facility] [address] [place] [address] Potassium [Moles/Vol] 4.2 mmol/L Normal 3.5-5.1 [facility] Comment on above: Order Comment: Items in this order include: Comprehensive Metabolic Panel, Lipid Panel, Free T4, PSA (Screening Medicare Only), TSH, CBC with differential, Testing Performed By: [facility] [address] [place] [address] CLIA#:[id number] [address] Abbe Celeste, Bottle Selector Performed By: #### C 4125, C408, C215, C47, C400, C8 #### [facility] [address] [place] [address] Protein [Mass/Vol] 7.3 g/dL Normal 5.7-8.2 [facility] Comment on above: Order Comment: Items in this order include: Comprehensive Metabolic Panel, Lipid Panel, Free T4, PSA (Screening Medicare Only), TSH, CBC with differential, Testing Performed By: [facility] [address] [place] [address] CLIA#:[id number] [address] Abbe Celeste, Bottle Selector Performed By: #### C 4125, C408, C215, C47, C400, C8 #### [facility] [address] [facility] [place] [address] Sodium [Moles/Vol] 138 mmol/L Normal 136-145 [facility] Comment on above: Order Comment: Items in this order include: Comprehensive Metabolic Panel, Lipid Panel, Free T4, PSA (Screening Medicare Only), TSH, CBC with differential, Testing Performed By: [facility] [address] [place] [address] CLIA#:[id number] [address] Abbe Celeste, Bottle Selector Performed By: #### C 4125, C408, C215, C47, C400, C8 #### [facility] [address] [place] [address] Urea nitrogen [Mass/Vol] 12 mg/dL Normal 9-23 [facility] Comment on above: Order Comment: Items in this order include: Comprehensive Metabolic Panel, Lipid Panel, Free T4, PSA (Screening Medicare Only), TSH, CBC with differential, Testing Performed By: [facility] [address] [place] [address] CLIA#:[id number] [address] Abbe Celeste, Bottle Selector Performed By: #### C 4125, C408, C215, C47, C400, C8 #### [facility] [address] [place] [address] Free T4 (COPC)on 01-16-2023 Free T4 [Mass/Vol] 0.9 ng/dL Normal 0.9-1.8 [facility] Comment on above: Performed By: #### C 4125, C408, C215, C47, C400, C8 #### [facility] [address] [place] [address] Lipid Panel (COPC)on 023 Cholesterol [Mass/Vol] 145 mg/dL Normal <200 [facility] Comment on above: Result Comment: Low- risk levels (desirable) < 200 mg/dL Moderate-risk levels (borderline) 200 to 239 mg/dL High-risk levels > or = 240 mg/dL Performed By: #### C 4125, C408, C215, C47, C400, C8 #### [facility] [address] [place] [address] Cholesterol in HDL [Mass/Vol] 46 mg/dL Low >60 [facility] Comment on above: Performed By: #### C 4125, C408, C215, C47, C400, C8 #### [facility] [address] [place] [address] Cholesterol in LDL [Mass/Vol] 88 mg/dL Normal <130 [facility] Comment on above: Performed By: #### C 4125, C408, C215, C47, C400, C8 #### [facility] [address] [place] [address] Cholesterol.total/Cho lesterol in HDL [Mass ratio] 3.2 {ratio} Normal <4.0 [facility] Comment on above: Performed By: #### C 4125, C408, C215, C47, C400, C8 #### [facility] [address] [place] [address] Non-HDL Chol 99 Normal LDL Goal + 30 [facility] Comment on above: Result Comment: LDL and Non-HDL goal dependent upon individual risk Performed By: #### C 4125, C408, C215, C47, C400, C8 #### [facility] [address] [place] [address] Triglyceride [Mass/Vol] 55 mg/dL Normal <150 [facility] Comment on above: Performed By: #### C 4125, C408, C215, C47, C400, C8 #### [facility] [address] [place] [address] VLDL-Calc 11 mg/dl Normal <30 [facility] Comment on above: Performed By: #### C 4125, C408, C215, C47, C400, C8 #### [facility] [address] [place] [address] PSA (Screening Medicare Only ) ([facility])on 01-16-2023 SCRPSA 0.49 ng/mL Normal 0.00-4.00 [facility] Comment on above: Performed By: #### C 4125, C408, C215, C47, C400, C8 #### [facility] [address] [place] [address] TSH ([facility])on 01-16-2023 TSH 2.462 MIU/mL Normal 0.550-4.780 [facility] Comment on above: Performed By: #### C 4125, C408, C215, C47, C400, C8 #### [facility] [address] [place] [address] CT LUNG SCREENINGon 11-18-[address] LUNG [...] Self Edit Transcribed Date: 11/18/2022 14:11 Normal [facility] Basic Metabolic Panel [facility] 07-12-2021 Calcium [Mass/Vol] 9.5 mg/dL Normal 8.9-10.3 [facility] Comment on above: Performed By: #### C [id number] #### [facility] Chloride [Moles/Vol] 102 mmol/L Normal 98-107 [facility] Comment on above: Performed By: #### C D:[id number] #### [facility] CO2 [Moles/Vol] 25 mmol/L Normal 22-32 [facility] Comment on above: Performed By: #### C D:[id number] #### [facility] Creatinine [Mass/Vol] 0.7 mg/dL Normal 0.6-1.3 [facility] Comment on above: Performed By: #### C D:[id number] #### [facility] GFR/1.73 sq M.predicted (S/P/Bld) [Vol rate/Area] mL/min Normal [facility] Comment on above: Performed By: #### C D:[id number] #### [facility] Glucose [Mass/Vol] 185 mg/dL High 70-99 [facility] Comment on above: Performed By: #### C D:[id number] #### [facility] Potassium post dialysis [Moles/Vol] 4.0 mMol/L Normal 3.6-5.1 [facility] Comment on above: Performed By: #### C D:[id number] #### [facility] Sodium [Moles/Vol] 139 mmol/L Normal 136-145 [facility] Comment on above: Performed By: #### C D:[id number] #### [facility] Urea nitrogen [Mass/Vol] 8 mg/dL Normal 8-20 [facility] Comment on above: Performed By: #### C D:[id number] #### [facility] Blood Gas POCT VBG Blanquita Nani [place]ara (Uploaded)on 07-12-2021 Calcium.ionized (Bld) [Mass/Vol] 1.20 mMol/L Normal 1.12-1.32 [facility] Comment on above: Performed By: #### 2 4339-4x4 #### POINT OF CARE Carboxyhemoglobin (Bld) [Mass fraction] 2.9 % Normal [facility] Comment on above: Result Comment: NON SMOKERS <1.5% SMOKERS 1.5 - 9.0% Performed By: #### 2 4339-4x4 #### POINT OF CARE Chemistry studies (set) 21.0 % Normal [facility] Comment on above: Performed By: #### 2 4339-4x4 #### POINT OF CARE Chloride [Moles/Vol] 105 mmol/L Normal 98-[address] [facility] Comment on above: Performed By: #### 2 4339-4x4 #### POINT OF CARE Glucose [Mass/Vol] 182 mg/dL High 70-110 [facility] Comment on above: Performed By: #### 2 4339-4x4 #### POINT OF CARE Hemoglobin (Bld) [Mass/Vol] 16.4 g/dL Normal 13.5-17.5 [facility] Comment on above: Performed By: #### 2 4339-4x4 #### POINT OF CARE Lactate [Moles/Vol] 1.1 mmol/L Normal 0.5-2.2 [facility] Comment on above: Performed By: #### 2 4339-4x4 #### POINT OF CARE Methemoglobin (Bld) [Mass fraction] % Normal 0.2-0.6 [facility] Comment on above: Performed By: #### 2 4339-4x4 #### POINT OF CARE Oxygen (BldCoV) [Partial pressure] 52 mmHg High 25-40 [facility] Comment on above: Performed By: #### 2 4339-4x4 #### POINT OF CARE Oxyhemoglobin (Bld) [Mass fraction] 86.9 % High 40.0-70.0 [facility] Comment on above: Performed By: #### 2 4339-4x4 #### POINT OF CARE pCO2 Venous POCT 38 mmHg Low 41-51 [facility] Comment on above: Performed By: #### 2 4339-4x4 #### POINT OF CARE pH Venous POCT 7.43 High 7.31-7.41 [facility] Comment on above: Performed By: #### 2 4339-4x4 #### POINT OF CARE Potassium post dialysis [Moles/Vol] 3.8 mEq/L Normal 3.5-5.0 [facility] Comment on above: Performed By: #### 2 4339-4x4 #### POINT OF CARE SaO2% (BldCoV) [Mass fraction] 90.0 % High 40.0-70.0 [facility] Comment on above: Performed By: #### 2 4339-4x4 #### POINT OF CARE Sodium [Moles/Vol] 140 mmol/L Normal 136-146 [facility] Comment on above: Performed By: #### 2 4339-4x4 #### POINT OF CARE CBC POCTon 07-12-2021 Erythrocyte distribution width (RBC) [Entitic vol] 13.5 % Normal 11.0-16.3 [facility] Comment on above: Performed By: #### C D:[id number] #### [facility] Hematocrit (BldA) [Volume fraction] 47.1 % Normal 31.1-57.4 [facility] Comment on above: Performed By: #### C D:[id number] #### [facility] Hemoglobin (Bld) [Mass/Vol] 16.7 g/dL Normal 10.5-17.8 [facility] Comment on above: Performed By: #### C D:[id number] #### [facility] Lymphocytes (Bld) [#/Vol] 1.7 thou/mcL Normal 1.0-4.8 [facility] Comment on above: Performed By: #### C D:[id number] #### [facility] Lymphocytes/100 WBC (Bld) 16.4 % Low 25.0-57.0 [facility] Comment on above: Performed By: #### C D:[id number] #### [facility] MCH (RBC) [Entitic mass] 37.3 Picograms High 27.4-35.7 [facility] Comment on above: Performed By: #### C D:[id number] #### [facility] MCHC (RBC) [Mass/Vol] 35.5 g/dL Normal 32.7-36.7 [facility] Comment on above: Performed By: #### C D:[id number] #### [facility] MCV (RBC) [Entitic vol] 105.1 fL High 82.5-102.0 [facility] Comment on above: Performed By: #### C D:[id number] #### [facility] Neutrophils (Bld) [#/Vol] 8.0 thou/mcL High 1.8-7.7 [facility] Comment on above: Performed By: #### C D:[id number] #### [facility] Neutrophils/100 WBC (Bld) 77.9 % High 37.0-75.0 [facility] Comment on above: Performed By: #### C D:[id number] #### [facility] Platelet mean volume (Bld) [Entitic vol] 10.4 fL Normal 8.5-13.5 [facility] Comment on above: Performed By: #### C D:[id number] #### [facility] Platelets (Bld) [#/Vol] 267 thou/mcL Normal 166-400 [facility] Comment on above: Performed By: #### C D:[id number] #### [facility] RBC (Bld) [#/Vol] 4.48 million/mcL Normal 3.30-6.06 [facility] Comment on above: Performed By: #### C D:[id number] #### [facility] WBC (Bld) [#/Vol] 10.3 thou/mcL Normal 5.2-17.1 [facility] Comment on above: Performed By: #### C D:[id number] #### [facility] WBC other (Bld) [#/Vol] 0.6 thou/mcL Normal 0.1-1.3 [facility] Comment on above: Performed By: #### C D:[id number] #### [facility] WBC other/100 WBC (Bld) 5.7 % Normal 1.2-11.4 [facility] Comment on above: Performed By: #### C D:[id number] #### [facility] Coronavirus (COVID-19/SARS-C oV-2) [facility] 07-12-2021 SARS-CoV-2 (COVID-19) RdRp gene RANDY+probe Ql (Resp) Not detected Normal [facility] Comment on above: Result Comment: This test was performed via the [employer] NOW COVID-19 assay and has been authorized by FDA under an Emergency Use Authorization (EUA). The assay is validated for nasopharyngeal (SUGGESTION CLERK), nasal, and oropharyngeal (OP) direct swabs. The [...] (PPP) 339 mcg/mL Normal 0-400 [facility] Comment on above: Performed By: #### C D:[id number] #### [facility] ED Pat Eduon 07-12-2021 ED [facility] [address] [address] [phone] Emergency Department Discharge Instructions ALEJANDRO MARADIAGA, Please provide this information to your Primary Care/Specialist Name: ALEJANDRO MARADIAGA Current Date : 07/12/2021 09:45:39 : 1955 Primary Care Physician: Elle Cortes MD Diagnosis : COPD exacerbation; Pneumonia Follow-Up Instructions: ALEJANDRO MARADIAGA has been given these follow-up instructions: FOLLOW-UP APPOINTMENTS: Provider: Specialty: Address: Date: Elle Cortes MD Internal Medicine [address] [place] [address] (1) Comment: Call for an Appointment Laboratory [...] [facility]icios [facility]cia Name ALEJANDRO MARADIAGA MRN [facility]-[id number] [facility]# [id number] PLEASE READ THE FOLLOWING REGARDING YOUR MEDICATIONS [...] doses are changed, or new medications (including tvrs-noj-xnrucxb products) are added. If you have any [...] (more content not included)... Normal [facility] Hepatic Function Panel POCTo n 07-12-2021 Albumin [Mass/Vol] 4.3 g/dL Normal 3.5-4.8 [facility] Comment on above: Performed By: #### C D:[id number] #### [facility] ALP (S/P/Bld) [Catalytic activity/Vol] 94 Units/L High 32-91 [facility] Comment on above: Performed By: #### C D:[id number] #### [facility] ALT/Aspartate aminotransferase [Catalytic ratio] 88 Units/L High 7-52 [facility] Comment on above: Performed By: #### C D:[id number] #### [facility] Amylase [Catalytic activity/Vol] 38 Units/L Normal 26-100 [facility] Comment on above: Performed By: #### C D:[id number] #### [facility] AST [Catalytic activity/Vol] 70 Units/L High 15-41 [facility] Comment on above: Performed By: #### C D:[id number] #### [facility] Bilirubin [Mass/Vol] 1.2 mg/dL Normal 0.3-1.2 [facility] Comment on above: Performed By: #### C D:[id number] #### [facility] Gamma glutamyl transferase [Catalytic activity/Vol] 293 Units/L High 7-50 [facility] Comment on above: Performed By: #### C D:[id number] #### [facility] Protein [Mass/Vol] 8.0 g/dL High 6.1-7.9 [facility] Comment on above: Performed By: #### C D:[id number] #### [facility] Troponin I.cardiac [Mass/Vol] 0.00 ng/mL Normal <0.08 [facility] Comment on above: Performed By: [...] Mild right midlung opacity suspicious for infiltrate. Mariajose Griffith thanks you for the opportunity to care for your patient. Workstation ID: [id number] - [id number] FINAL REPORT Dictated By: Kodi Mohan MD 07/12/2021 07:12 Assigned Physician: Kodi Mohan MD Reviewed and Electronically Signed By: Kodi Mohan MD 07/12/2021 07:14 Transcribed by: [facility] 07/12/2021 07:12 Technologist: ERIBERTO Ernst [facility] XR Chest 2 Viewson XR [...] of emphysema. IMPRESSION: No acute cardiopulmonary disease Mariajose Griffith thanks you for the opportunity to care for your patient. Workstation ID: [id number] - [id number] FINAL REPORT Dictated By: Lisa Parrish MD 05/08/2021 08:29 Assigned Physician: Lisa Parrish MD Reviewed and Electronically Signed By: Lisa Parrish MD 05/08/2021 08:29 Transcribed by: [facility] 05/08/2021 08:29 Technologist: ZAID Ernst [facility] Vital Signs Date Time Vital Sign Value Performing Clinician Facility 05-18-2024 14:24040 Body height 175.26 cm [facility] 05-18-2024 14:24040 Body mass index (BMI) [Ratio] 24.2 kg/m2 [facility] 05-18-2024 14:24040 Body temperature 97.3 [degF] [facility] 05-18-2024 14:24040 Body weight 74.38 kg [facility] 05-18-2024 14:24040 Diastolic blood pressure 65 mm[Hg] [facility] 05-18-2024 14:24-0400 Heart rate 74 /min [facility] 05-18-2024 14:24-0400 Respiratory rate 20 /min [facility] 05-18-2024 14:24-0400 SaO2% (BldA) [Mass fraction] 97 % [facility] 05-18-2024 14:24-0400 Systolic blood pressure 114 mm[Hg] [facility] 02-23-2024 10:36-0400 Body height 175.26 cm MD Shanell Craig Work Phone: [facility] 02-23-2024 10:36-0400 Body mass index (BMI) [Ratio] 23.6 kg/m2 MD Shanell Craig Work Phone: [facility] 02-23-2024 10:36-0400 Body weight 72.57 kg MD Shanell Craig Work Phone: [facility] 02-23-2024 10:36-0400 Diastolic blood pressure 63 mm[Hg] MD Shanell Craig Work Phone: [facility] 02-23-2024 10:36-0400 Heart rate 86 /min MD Shanell Craig Work Phone: [facility] 02-23-2024 10:36-0400 Systolic blood pressure 108 mm[Hg] MD Shanell Craig Work Phone: [facility] 02-10-2024 15:48-0400 Body height 175.26 cm MD Shanell Craig Work Phone: [facility] 02-10-2024 15:48-0400 Body mass index (BMI) [Ratio] 23.3 kg/m2 MD Shanell Craig Work Phone: [facility] 02-10-2024 15:48-0400 Body temperature 96.5 [degF] MD Shanell Craig Work Phone: [facility] 02-10-2024 15:48-0400 Body weight 71.66 kg MD Shanell Craig Work Phone: [facility] 02-10-2024 15:48-0400 Diastolic blood pressure 78 mm[Hg] MD Shanell Craig Work Phone: [facility] 02-10-2024 15:48-0400 Heart rate 82 /min MD Shanell Craig Work Phone: [facility] 02-10-2024 15:48-0400 Respiratory rate 20 /min MD Shanell Craig Work Phone: [facility] 02-10-2024 15:48-0400 SaO2% (BldA) [Mass fraction] 97 % MD Shanell Craig Work Phone: [facility] 02-10-2024 15:48-0400 Systolic blood pressure 113 mm[Hg] MD Shanell Craig Work Phone: [facility] 10-24-2023 10:30-0500 Body height 175.26 cm Shanell Craig Other [facility] [employer] Other 10-24-2023 10:30-0500 Body mass index (BMI) [Ratio] 23.03 kg/m2 Shanell Craig Other [facility] [employer] Other 10-24-2023 10:30-0500 Body weight 70.76 kg Shanell Craig Other [employer] Other 10-24-2023 10:30-0500 Diastolic blood pressure 71 mm[Hg] Shanell Craig Other [employer] Other 10-24-2023 10:30-0500 SaO2% (BldA) [Mass fraction] 97 % Shanell Craig Other [employer] Other 10-24-2023 10:30-0500 Systolic blood pressure 118 mm[Hg] Shanell Craig Other [employer] Other 09-01-2023 08:30-0400 Body height 175.26 cm Irma Ontiveros Other [employer] Other 09-01-2023 08:30-0400 Body mass index (BMI) [Ratio] 24.81 kg/m2 Irma Velezban Other [employer] Other 09-01-2023 08:30-0400 Body temperature 97.2 [degF] Irma Ontiveros Other [employer] Other 09-01-2023 08:30-0400 Body weight 76.2 kg Irma Ontiveros Other [employer] Other 09-01-2023 08:30-0400 Diastolic blood pressure 82 mm[Hg] Irma Ontiveros Other [employer] Other 09-01-2023 08:30-0400 Respiratory rate 20 /min Irma Ontiveros Other [employer] Other 09-01-2023 08:30-0400 SaO2% (BldA) [Mass fraction] 98 % Irma Ontiveros Other [employer] Other 09-01-2023 08:30-0400 Systolic blood pressure 120 mm[Hg] Irma Ontiveros Other [employer] Other 06-20-2023 08:30-0400 Body height 172.72 cm Shanell Craig Other [employer] Other 06-20-2023 08:30-0400 Body mass index (BMI) [Ratio] 27.06 kg/m2 Shanell Craig Other [employer] Other 06-20-2023 08:30-0400 Body weight 80.74 kg Shanell Craig Other [employer] Other 06-20-2023 08:30-0400 Diastolic blood pressure 72 mm[Hg] Shanell Craig Other [employer] Other 06-20-2023 08:30-0400 Systolic blood pressure 133 mm[Hg] Shanell Craig Other [employer] Other 11-14-2022 10:36-0500 Body height 180.3 cm Rhonda Kaiser MD Work Phone: [employer] 11-14-2022 10:36-0500 Body mass index (BMI) [Ratio] 24.23 kg/m2 Rhonda Kaiser MD Work Phone: [employer] 11-14-2022 10:36-0500 Body temperature 97.59 [degF] Rhonda Kaiser MD Work Phone: [employer] 11-14-2022 10:36-0500 Body weight 78.79 kg Rhonda Kaiser MD Work Phone: [employer] 11-14-2022 10:36-0500 Diastolic blood pressure 80 mm[Hg] Rhonda Kaiser MD Work Phone: [employer] 11-14-2022 10:36-0500 Heart rate 75 /min Rhonda Kaiser MD Work Phone: [employer] 11-14-2022 10:36-0500 Respiratory rate 16 /min Rhonda Kaiser MD Work Phone: [employer] 11-14-2022 10:36-0500 SaO2% (BldA) [Mass fraction] 96 % Rhonda Kaiser MD Work Phone: [employer] Comment on above: [facility] 11-14-2022 10:36-0500 Systolic blood pressure 168 mm[Hg] Rhonda Kaiser MD Work Phone: [facility] Encounters Encounter Date Encounter Type Care Provider Facility Start: 10-18-2024 ambulatory [facility] Start: 09-01-2024 ambulatory [facility] Start: 08-24-2024 ambulatory [facility] Start: 08-04-2024 ambulatory [facility] Start: 06-22-2024 End: 06-22-2024 ambulatory [facility] Start: 05-18-2024 End: 05-18-2024 ambulatory [place] Work Phone: Start: 05-18-2024 End: 05-18-2024 Patient encounter procedure [facility] Work Phone: Start: 03-17-2024 End: 03-17-2024 ambulatory [facility] Start: 02-23-2024 End: 02-23-2024 ambulatory MD Shanell Craig Work Phone: [facility] Work Phone: Start: 02-23-2024 End: 02-23-2024 Patient encounter procedure MD Shanell Craig Work Phone: [facility] Work Phone: Start: 02-20-2024 End: 02-20-2024 ambulatory BENJY STEVEN [facility] Start: 02-10-2024 End: 02-10-2024 ambulatory MD Shanell Craig Work Phone: [facility] Work Phone: Start: 02-10-2024 End: 02-10-2024 Patient encounter procedure MD Shanell Craig Work Phone: [facility] Work Phone: Start: 02-04-2024 ambulatory ELLE CORTES [facility] Start: 02-04-2024 ambulatory ELLE CORTES [facility] Start: 02-04-2024 ambulatory ELLE CORTES [facility] Start: 01-21-2024 End: 01-21-2024 ambulatory [facility] Start: 01-15-2024 Non-patient / Non-visit MD Shanell Craig Work Phone: [facility] Work Phone: Start: 12-16-2023 End: 12-16-2023 ambulatory ABEL [facility] Start: 12-01-2023 End: 12-01-2023 ambulatory Tima Osorio Other [facility] [employer] Other Start: 12-01-2023 Telephone encounter Tima barrientos [facility] Start: 11-27-2023 End: 11-27-2023 ambulatory Shanell Craig Facility[facility] Start: 11-27-2023 End: 11-27-2023 ambulatory MD Shanell Craig Work Phone: [facility] Work Phone: Start: 11-27-2023 End: 11-27-2023 Patient encounter procedure MD Shanell Craig Work Phone: [facility] [address] Work Phone: Start: 11-04-2023 End: 11-04-2023 ambulatory Shanell Craig Other [facility] Other Start: 11-04-2023 Telephone encounter Shanell Craig [facility] Start: 10-24-2023 End: 10-24-2023 ambulatory Shanell Craig Other [employer] Other Start: 10-24-2023 Office outpatient visit 25 minutes Shanell Craig [facility] Start: 10-24-2023 Telephone encounter Shanell Craig [facility] Start: 10-24-2023 End: 10-24-2023 Patient encounter procedure MD Shanell Craig Work Phone: [facility] Work Phone: Start: 10-22-2023 Telephone encounter Irma Ontiveros [facility] Start: 10-22-2023 End: 10-22-2023 [facility] [employer] [facility] Start: 09-01-2023 End: 09-01-2023 ambulatory Irma Ontiveros Other [employer] Other Start: 09-01-2023 Office outpatient ne w 45 minutes Kamdarinel Ontiveros [facility] Start: 09-01-2023 End: 09-01-2023 Patient encounter procedure MD Shanell Craig Work Phone: [facility]ician [facility] Work Phone: Start: 08-25-2023 End: 08-25-2023 ambulatory Shanell Craig Other [employer] Other Start: 08-25-2023 Telephone encounter Shanell Craig [facility] Start: 07-08-2023 End: 07-08-2023 ambulatory Shanell Craig Other [employer] Other Start: 07-08-2023 Telephone encounter Shanell Craig [facility] Start: 06-20-2023 End: 06-20-2023 ambulatory Shanell Craig Other [employer] Other Start: 06-20-2023 Office outpatient ne w 30 minutes Shanell Craig [facility] Start: 03-03-2023 ambulatory AVA GODFREY [facility] Start: 11-25-2022 End: 11-25-2022 ambulatory JENNI NOBLE[facility] Start: 11-25-2022 End: 11-25-2022 ambulatory Jenni Noblet [facility] Comment on above: Spondylosis without myelopathy or radiculopathy, cervical region (Primary Dx); Neck pain; Cervicalgia; Chronic left shoulder pain; Left shoulder pain, unspecified chronicity Start: 11-25-2022 End: 11-25-2022 [facility] Start: 11-20-2022 End: 11-20-2022 ambulatory Jenni Noblet PT [facility] Comment on above: Spondylosis without myelopathy or radiculopathy, cervical region (Primary Dx); Neck pain; Cervicalgia; Chronic left shoulder pain; Left shoulder pain, unspecified chronicity Start: 11-20-2022 End: 11-20-2022 Treatment Jenni Noblet PT [facility] Start: 11-18-2022 End: 11-18-2022 ambulatory Jenni Noblet PT [facility] Comment on above: Spondylosis without myelopathy or radiculopathy, cervical region (Primary Dx); Neck pain; Cervicalgia; Chronic left shoulder pain; Left shoulder pain, unspecified chronicity Start: 11-18-2022 End: 11-18-2022 Treatment Jenni Noblet PT [facility] Start: 11-15-2022 Refill Sheila Ace MA [facility] [place] Start: 11-15-2022 Refill Sheila Ace MA [facility] [place] Start: 11-14-2022 End: 11-14-2022 ambulatory JENNI NOBLET JENNI [facility] Start: 11-14-2022 End: 11-14-2022 ambulatory Jenni Noblet PT [facility] Comment on above: Spondylosis without myelopathy or radiculopathy, cervical region (Primary Dx); Neck pain; Cervicalgia; Chronic left shoulder pain; Left shoulder pain, unspecified chronicity Start: 11-14-2022 End: 11-14-2022 Treatment Jenni Noblet PT [facility] Start: 11-14-2022 End: 11-14-2022 ambulatory RHONDA KAISER [facility] Start: 11-14-2022 End: 11-14-2022 Office outpatient new 45 minutes Rhonda Kaiser MD Work Phone: [facility] [place] Comment on above: Nicotine dependence, uncomplicated, unspecified nicotine product type (Primary Dx); Chronic obstructive pulmonary disease, unspecified COPD type (CMS/HCC) Start: 11-14-2022 End: 11-14-2022 Patient encounter procedure Rhonda Kaiser MD Work Phone: [facility] [place] Start: 11-12-2022 End: 11-12-2022 ambulatory Jenni Noblet PT [facility] [place] Comment on above: Spondylosis without myelopathy or radiculopathy, cervical region (Primary Dx); Neck pain; Cervicalgia; Chronic left shoulder pain; Left shoulder pain, unspecified chronicity Start: 11-12-2022 End: 11-12-2022 Treatment Jenni Noblet PT [facility] Start: 11-05-2022 End: 11-05-2022 ambulatory JENNI NOBLET JENNI [facility] Start: 11-05-2022 End: 11-05-2022 ambulatory Jneni Noblet PT [facility] Comment on above: Spondylosis without myelopathy or radiculopathy, cervical region (Primary Dx); Neck pain; Cervicalgia; Chronic left shoulder pain; Left shoulder pain, unspecified chronicity Start: 11-05-2022 End: 11-05-2022 Treatment Jenni Noblet PT [facility] Start: 10-30-2022 End: 10-30-2022 ambulatory JENNI NOBLET JENNI [facility] Start: 10-30-2022 End: 10-30-2022 ambulatory Jenni Noblet PT [facility] Comment on above: Spondylosis without myelopathy or radiculopathy, cervical region (Primary Dx); Neck pain Start: 10-30-2022 End: 10-30-2022 Evaluation Jenni Noblet PT [facility] Start: 02-06-2022 End: 02-06-2022 ambulatory TIANA [id number] [facility] Start: 02-06-2022 End: 02-06-2022 ambulatory Kalie Tagge [facility] [place] Comment on above: Cervicalgia (Primary Dx) Start: 02-06-2022 End: 02-06-2022 Treatment Kalie Tagge PT [facility] Start: 02-04-2022 End: 02-04-2022 ambulatory STORM ALEXEY NEA [facility] [place] Start: 01-28-2022 End: 01-28-2022 ambulatory STORM ALEXEY INMAN [facility] [place] Start: 01-24-2022 End: 01-24-2022 ambulatory TAGGE KALIE TAGGE KALIE~[id number] [facility] Procedures Date Procedure Procedure Detail Performing Clinician Start: 11-27-2023 CT of lungs MD Shanell Craig Work Phone: Plan of Treatment Date Care Activity Detail Author Start: 10-31-2026 Lipid panel Cholesterol [facility] (Lipid Panel) [facility] Start: 11-18-2023 End: 11-18-2023 Patient encounter procedure 11/18/2023 Appointment Radiology [facility] Start: 11-28-2022 End: 11-28-2022 ambulatory 11/28/2022 Treatment Physical Therapy Jenni Huang, PT [facility] Start: 11-28-2022 End: 11-28-2022 ambulatory 11/28/2022 Treatment Physical Therapy Jenni Huang, [facility] [place] Start: 11-25-2022 End: 11-25-2022 ambulatory 11/25/2022 Treatment Physical Therapy Jenni Huang, PT [facility] [place] Start: 11-25-2022 End: 11-25-2022 ambulatory 11/25/2022 Treatment Physical Therapy Jenni Huang, PT [facility] Start: 11-20-2022 End: 11-20-2022 ambulatory 11/20/2022 Treatment Physical Therapy Jenni Huang, PT [facility] Start: 11-18-2022 End: 11-18-2022 Patient encounter procedure 11/18/2022 Appointment Radiology [facility] Start: 11-18-2022 End: 11-18-2022 ambulatory 11/18/2022 Treatment Physical Therapy Jenni Huang, PT [facility] Start: 11-14-2022 End: 11-14-[address] Lung Screening Imaging Routine Nicotine dependence, uncomplicated, unspecified nicotine product type Expected: 11/14/2022, Expires: 11/14/2023 [facility] Work Phone: Comment on above: Expected: 11/14/2022 , Expires: 11/14/2023 Start: 11-14-2022 End: 11-14-2022 ambulatory 11/14/2022 Treatment Physical Therapy Jenni Huang, PT [facility] Start: 11-14-2022 End: 11-14-2022 Patient encounter procedure 11/14/2022 Office Visit Pulmonology Rhonda Kaiser MD [address] [place] [address] [facility] [place] Start: 11-12-2022 End: 11-12-2022 ambulatory 11/12/2022 Treatment Physical Therapy Jenni Huang, PT [facility] Start: 11-05-2022 End: 11-05-2022 ambulatory 11/05/2022 Treatment Physical Therapy Jenni Huang, MARK ANTHONY [facility] Start: 10-31-2022 Hypertension/CHF/CAD Annual BMP Blood Test Hypertension/CHF/CAD Annual BMP Blood Test [facility] Start: 10-31-2022 Screening for malign ant neoplasm of colon Colorectal Cancer Screening: Stool Based Tests (FOBT/FIT) [facility] Start: 12-20-2021 COVID-19 Vaccine (4 - Booster for Moderna series) COVID-19 Vaccine (4 - Booster for Moderna series) [facility] Start: 2020 Falls Risk Assessment Falls Risk Ass essment [facility] Start: 11-25-2019 Abdominal aortic aneurysm screening Abdominal Aortic Aneurysm (AAA) Screen [facility] Start: 11-25-2019 Adolescent depressio n screening assessment Depression Screening [facility] Start: 11-25-2019 Hepatitis C screening Hepatitis C Sc reening [facility] Start: 11-25-2019 Medicare Annual Wellness Visit Medicare Annual Wellness Visit [facility] Start: 11-25-2019 Social Influencers o f Health Screening Social Influencers of Health Screening [facility] Start: 2005 Zoster Vaccines (1 o f 2) Zoster Vaccines (1 of 2) [facility] Start: 1974 DTaP,Tdap,and Td Vaccines (1 - Tdap) DTaP,Tdap,and Td Vaccines (1 - Tdap) [facility] Start: 1956 Hepatitis A Vaccines (1 of 2 - Risk 2-dose series) Hepatitis A Vaccines (1 of 2 - Risk 2-dose series) [facility] CT Unspecified body region [facility] Payers Date Payer Category Payer Self-pay 2023 Medicare [id number] 2022 Medicare [id number] 2020 Medicare MEDICARE MEDICAR E PART A & B [id number] 2020-Present [address] [facility] [place] [address] Medicare [id number] 2020 Medicare [id number] 2020 Medicare [id number] 2014 Private Health Insurance AETNA D OMESTIC AETNA DOMESTIC [id number] 2014-Present [address] [address] [place] [address] [id number] 2014 Private Health Insurance AETNA D OMESTIC AETNA DOMESTIC [id number] 2014-Present [address] [place] [address] [id number] 2014 Private Health Insurance [id number] 1955 Unknown [id number] 2.16.840.1.268017.3.579.2.1 143 1955 Unknown [id number] 2.16.840.1.052040.3.579.2.1 143 1955 Unknown [id number] 2.16.840.1.211207.3.579.2.1 143 1955 Unknown [id number] 2.16.840.1.160776.3.579.2.1 143 1955 Unknown [id number] 2.16.840.1.151692.3.579.2.1 143 1955 Unknown [id number] 2.16.840.1.410475.3.579.2.1 143 1955 Unknown [id number] 2.16.840.1.521851.3.579.2.1 143 1955 Unknown [id number] 2.16.840.1.720253.3.579.2.1 143 1955 Unknown [id number] 2.16.840.1.939433.3.579.2.1 143 1955 Unknown [id number] 2.16.840.1.387303.3.579.2.1 143 1955 Unknown [id number] 2.16.840.1.163902.3.579.2.1 143 1955 Unknown [id number] 2.16.840.1.352220.3.579.2.1 143 1955 Unknown [id number] 2.16.840.1.915484.3.579.2.1 143 1955 Unknown [id number] 2.16.840.1.583211.3.579.2.1 143 1955 Unknown [id number] 2.16.840.1.853474.3.579.2.1 260 1955 Unknown [id number] 2.16.840.1.829570.3.579.2.1 260 1955 Unknown [id number] 2.16.840.1.103433.3.579.2.1 260 1955 Unknown [id number] 2.16.840.1.198391.3.579.2.1 260 1955 Unknown [id number] 2.16.840.1.518005.3.579.2.1 260 1955 Unknown [id number] 2.16.840.1.668399.3.579.2.1 260 Unknown [id number] 2.16.840.1.231671.3.579.2.5 31 Social History Date Type Detail Facility Tobacco smoking stat [facility] Tobacco smoking consumption unknown [facility] Start: 1955 Sex Assigned At Not on file [facility] [employer] Start: 10-19-2022 End: 11-18-2022 Exposure to SARS-CoV-2 (event) Not sure [facility] Start: 11-14-2022 Tobacco smoking status [facility] Ex-smoker [facility] Start: 02-10-2024 History of tobacco use Current smoker [facility] History of tobacco use Cigarette Smoker T [facility] Start: 11-14-2022 Cigarettes smoked current (pack per day) - Reported 0.5 [facility] Sex Assigned At Sex Assigned At [facility] Other Start: 1955 Sex Assigned At Male [facility] Clinical Notes 08-29-2020 to 06-22-2024 Note Date & Type Note Facility 06-22-2024 Note [facility] Consult Note Reason for visit: Afib 06/22/24 patient underwent flutter ablation 01/21/2024 and subsequently underwent loop monitor placement on 03/17/2024. Loop has not revealed any concerning events for atrial fibrillation. HPI: Alejandro Maradiaga is a 69 y.o. year old with past medical history [...] on Eliquis. Goes to cardiac rehab at [facility] a few times a week. Had BMP/MG drawn yesterday. C/o fatigue and weakness. Urinating a lot during the night. PMH: Past Medical History: Diagnosis Date Abnormal ECG Arrhythmia Atrial fibrillation (CMS/HCC) CHF (congestive heart failure) (CMS/HCC) PSH: Past Surgical History: Procedure Laterality Date ANKLE SURGERY CARDIAC CATHETERIZATION CARDIOVERSION NECK SURGERY SH: Social Determinants of Health Tobacco Use: High Risk (02/20/2024) Patient History Smoking Tobacco Use: Every Day Smokeless Tobacco Use: Never Passive Exposure: Not on file Alcohol Use: Not on file Financial Resource Strain: Low Risk (10/15/2023) Overall Financial Resource Strain (CARDIA) Difficulty of Paying Living Expenses: Not hard at all Food Insecurity: No Food Insecurity (10/15/2023) Hunger Vital Sign Worried About Running Out of Food in the Last Year: Never true Ran Out of Food in the Last Year: Not on file Transportation Needs: No Transportation Needs (10/15/2023) Transportation Lack of Transportation (Medical): No Lack of Transportation (Non-Medical): Not on file Physical Activity: Not on file Stress: Not on file Social Connections: Not on file Intimate Partner Violence: Not At Risk (10/15/2023) [place] Safety & Environment Fear of Current or Ex-Partner: No Emotionally Abused: Not on file Physically Abused: Not on file Sexually Abused: Not on file Physically or Sexually Abused: Not on file Depression: Not on file Housing Stability: Low Risk (10/15/2023) Housing Stability Vital Sign Unable to Pay for Housing in the Last Year: Not on file Number of Places Lived in the Last Year: Not on file Unstable Housing in the Last Year: No Utilities: Not on file Allergies: Allergies Allergen Reactions Adenosine Anaphylaxis Latex Shortness of breath Weight: 74.8kg Visit Vitals BP 112/69 (BP Location: Right leg, Patient Position: Sitting) Pulse 60 Ht 1.803 m (5' 11 ) Wt 74.8 kg (165 lb) SpO2 98% BMI 23.01 kg/m??? Smoking Status Every Day BSA 1.94 m??? Meds: Current Outpatient Medications on File Prior to Visit Medication Sig Dispense Refill albuterol 90 mcg/actuation inhaler Inhale 1 puff in the morning. apixaban (Eliquis) 5 mg tablet Take 1 tablet (5 mg) by mouth in the morning and at bedtime. 180 tablet 3 atorvastatin (Lipitor) 10 mg tablet Take 1 tablet (10 mg) by mouth at bedtime. 90 tablet 3 dapagliflozin propanediol (Farxiga) 10 mg Take 1 tablet (10 mg) by mouth in the morning. 90 tablet 3 aqrikpylczh-mgncyhpbf-ybtspfji 200-62.5-25 mcg blister with device Inhale in [...] Take 10 mg by mouth at bedtime. nicotine (Nicoderm CQ) 14 mg/[address] 1 patch on the skin 1 (one) time each day at the same time. Apply 14mg patch daily x6 weeks then 7mg patch daily x 2 weeks; remove old patch before applying new patch; can repeat if needed (Patient not taking: Reported on 01/21/2024) 45 patch 3 nicotine (Nicoderm CQ) 7 mg/[address] 1 patch on the skin 1 (one) time each day at the same time for 14 days. Apply 14mg patch daily x6 weeks then 7mg patch daily x 2 weeks; remove old patch before applying new patch; can repeat if needed (Patient not taking: Reported on 01/21/2024) 14 patch 3 No current facility-administered medications on file prior to visit. ROS: Review of Systems Cardiovascular: Positive for dyspnea on exertion. Skin: Positive for dry skin, itching and rash. All other systems reviewed and are negative. Physical Exam: Constitutional General Appearance: well-nourished, well-developed, appears stated age Level of Distress: comfortable Psychiatric Mental Status: alert, normal affect Orientation: oriented to time, place, and person Insight: good judgement Eyes Lids and Conjunctivae: (more content not included)... [facility] 03-17-2024 Note LOOP IMPLANT PROCEDU RE NOTE DATE OF PROCEDURE: 03/17/24 PERFORMING PHYSICIAN: Dr. Abel Castaneda PHARM TECH: CAROLYN INDICATIONS FOR PROCEDURE: 1. SVT/AF surveillance CONSENT: Patient LOCATION: EP lab PROCEDURAL SEDATION: None FLUOROSCOPY TIME: 0min PREPARATION: Preoperative antibiotics was administered. EBL: 5cc SPECIMEN REMOVED: None PROCEDURES PERFORMED: 1. LOOP implant PROCEDURE NOTE: Patient was brought to the EP lab in the post absorptive state. A procedural pause was performed verifying the patient, the procedure. Sterile prep and drape were performed over the left precordium and anesthesia with 1% lidocaine was followed by a small incision was made in the 3rd intercostal space near the sternum on the left using the TELOS tool. The loop recorder was then injected subcutaneously and noted to have good sensing parameters. Technical details of the device as noted below. The skin was then closed with 3-0 absorbable monofilament suture and glue applied to hold the edges together. Tegaderm was applied to cover the wound. The patient appeared to tolerate the procedure well and was returned to the room in stable condition. No complications were immediately observed. Sensin.10mV. IMPRESSION: Successful placement of LOOP implant with excellent sensing parameters. COMPLICATIONS: None RECOMMENDATIONS: 1. Occlusive dressing to be changed after 7 days. 2. Do not wet the incision. Abel Castaneda MD Cardiac Electrophysiology. [facility] 02-20-2024 Note Remains in rhythm [facility] 02-20-2024 Note [place] II Continue GDMT- continue toprol, farxiga, lisinopril, and will hold aldactone r/t noted rash- Diuretic therapy- none currently Monitor daily weights, I&O, fluid restriction 1.5-2L/day, renal function and electrolytes- [facility] 02-20-2024 Note Currently in Sinus r hythm per ECG today Continue toprol 25 mg daily and eliuqis anticoagulation Pt states that he wants to proceed with loop implant as d/w Dr Castaneda [facility] 02-20-2024 Note [facility] CARDIOLOGY PROGR ESS NOTE HPI: Alejandro Maradiaga is a 68 y.o. male here for F/U post a fib/ flutter ablation HPI Patient here for follow up atrial flutter ablation performed on 01/21/[address] Castaneda. Says he's had a rash on his back since starting new meds in Oct 2023. Denies chest pain, palpitations, lightheadedness/syncope, and bleeding on Eliquis. Overall states he is doing well, although he remains fatigued and SOB with exertion. Did have recent f/U with pulmonlogist and was recommended to start new medication for SOB. Denied chest pain, orthopnea, weight gain or leg swelling/water retention. Review of Systems Cardiovascular: Positive for dyspnea on exertion. Skin: Positive for dry skin, itching and rash. All other systems reviewed and are negative. This past October pt was transferred from outside for atrial flutter with RVR. He also found to have 20% EF. The patient has fatigue and cardioverted back to normal sinus rhythm. Also he had heart catheterization that showed nonobstructive CAD and needed normal hemodynamic. 10/18/23 Previous [facility] hospitalization Discharge Summary Final Discharge Diagnosis: Atrial Flutter [...] presented emergency department as a transfer from [facility] for uncontrolled atrial flutter. Patient eventually presented to [facility] on 10/13/2020 treated with chief complaint of [...] possible cardioversion by cardiology here at [facility]. Echocardiogram revealed atrial flutter with right [...] to F/U with Cardiology in 1 week Visit Vitals BP 106/62 (BP Location: Left arm, Patient Position: Sitting) Pulse 80 Ht 1.803 m (5' 11 ) Wt 73 kg (161 lb) SpO2 97% BMI 22.45 kg/m??? Smoking Status Every Day BSA 1.91 m??? Allergies Allergen Reactions Adenosine Anaphylaxis Latex Shortness of breath Medications: Current Outpatient Medications on File Prior to Visit Medication Sig Dispense Refill albuterol 90 mcg/actuation inhaler Inhale 1 puff in the morning. apixaban (Eliquis) 5 mg tablet Take 1 tablet (5 mg) by mouth in the morning and at bedtime. 180 tablet 3 atorvastatin (Lipitor) 10 mg tablet Take 1 tablet (10 mg) by mouth at bedtime. 90 tablet 3 dapagliflozin propanediol (Farxiga) 10 mg Take 1 tablet (10 mg) by mouth in the morning. 90 tablet 3 hxhbfhkggst-ilmrztfzk-rbydbuuf 200-62.5-25 mcg blister with device Inhale in [...] Take 10 mg by mouth at bedtime. [DISCONTINUED] spironolactone (Aldactone) 25 mg tablet Take 1 [...] applying new patch; can repeat if needed (Patient not taking: Reported on 01/21/2024) 45 patch 3 nicotine (Nicoderm CQ) 7 mg/[address] 1 patch on the skin 1 (one) time each day at the same time for 14 days. Apply 14mg patch daily x6 weeks then 7mg patch daily x 2 weeks; remove old patch before applying new patch; can repeat if needed (Patient not taking: Reported on 01/21/2024) 14 patch 3 No current facility-administered medications on file prior to visit. Physical Exam: Constitutional: Appearance: Normal appearance. Without apparent distress, chronically ill HENT: Head: Normocephalic and atraumatic. Nose: Nose normal. Mouth/Throat: Mouth: Mucous membranes are moist. Eyes: Extraocular Movement (more content not included)... [facility] 02-20-2024 Note Patient here for fol low up atrial flutter ablation performed on 01/21/[address] Castaneda. Says he's had a rash on his back since starting new meds in Oct 2023. Denies chest pain, palpitations, lightheadedness/syncope, and bleeding on Eliquis. Review of Systems Cardiovascular: Positive for dyspnea on exertion. Skin: Positive for dry skin, itching and rash. All other systems reviewed and are negative. [facility] 01-21-2024 Note ATRIAL FLUTTER ABLAT ION PROCEDURE NOTE DATE OF PROCEDURE: 01/21/2024 PERFORMING PHYSICIAN: Dr. Abel Castaneda PHARM TECH: Dr Romel Hernandez CONSENT: Patient NAME OF THE PROCEDURE: Flutter ablation and Comprehensive EP study. INDICATIONS FOR PROCEDURE: Atrial flutter PROCEDURES PERFORMED: 1. Sonosite guided venous access as noted below and images stored in PACS. 2. Comprehensive EP study and catheter ablation for persistent atrial flutter. This includes right atrial recording and pacing, His bundle recording and right ventricular recording and pacing. 3. Intracardiac EP 3D mapping. 4. Intracardiac echocardiogram 5. Left atrial and coronary sinus recording and pacing to assess ablation results. 6. Conscious sedation. PROCEDURAL SEDATION: Versed and Fentanyl. Moderate sedation was administered by the sedation nurse under my supervision and noted in the CVL log. Intraprocedural face to face sedation time: 59min. Monitoring: Cardiac telemetry, Blood pressure, continuous pulse oxymetry. FLUOROSCOPY: NA EBL: 15cc SPECIMEN REMOVED: None INDICATION: 68 y.o. male presented emergency department as a transfer from [facility] for uncontrolled atrial flutter. Patient presented to outside hospital with HR in the 130s at that time and was found to have atrial flutter on EKG. Patient underwent cardioversion by cardiology at [facility]. He was brought for flutter ablation. PROCEDURE NOTE: Risks, benefits and alternatives of the procedure were discussed with the patient and family who agreed to proceed. Please refer to my consult note for details of the discussion and of indications. The patient was brought to the EP lab and a procedural pause was performed identifying the patient, the procedure. The patient presented in sinus rhythm and ICE imaging was used to rule out JHONATAN clot. Both the groins were then prepared and draped. Ultrasound was used to determine the course and patency of the femoral veins on both sides and they were noted to be patent and the image stored in PACS. After infiltration with 1% lidocaine, 3 venous sheaths were placed in the right. RFV: 8Fx3 [employer] ThermoCool SF Bi-Directional over SL1/ Vizigo, ICE catheter. CS Catheter (EZ Steer) Heparin 4000U bolus was given followed by continuous intravenous drip to target ACT around 300. An intracardiac ultrasound catheter was inserted into the right atrium to examine the right atrial anatomy, atrial septum, pulmonary vein anatomy and to monitor for pericardial effusion. 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 CS os was mapped using the [employer] 3D mapping software. Using ICE, the His and IVC junctions were marked with 3D CARTO mapping software. Vizigo sheath was exchanged for a short 8F sheath. Vizigo sheath was placed instead of short 8F sheath. The ablation catheter was advanced over to the CTI. Ablation was performed on the CTI line starting at the tricuspid valve aspect. 40W was utilized and I extended the ablation to the IVC aspect, but no bidirectional block was seen. There was a significant pouch noted which made it challenging to have good contact at the IVC aspect. Mapping was performed with CS pacing and this revealed leak adjacent to IVC aspect. Reablation was performed in this area which led to CTI block and bidirectional CTI block was noted 172ms. Pacing from the proximal CS as well as lateral aspect of RA (121ms) confirmed this. Differential pacing also confirmed CTI block. EP study was then performed. Atrial pacing was performed from CS poles. Burst atrial pacing down to 250ms did not induce any tachycardia. Repeat EP study could no longer demonstrate any tachycardia. EP study and ablation were then stopped at this time. ICE imaging confirmed no pericardial effusion. Sheaths were pulled and hemostasis was confirmed with manual compression. ICE catheter and all catheters were removed. Venous sheaths were pulled and hemostasis noted. He was transferred to observation bay. AHms 141 HVms 59 VERPms 600/280 AV Wenkebach ms 400 AH jump ms NA AVNERP ms 600/320 AERP ms 600/230 POST PROCEDURE DIAGNOSIS 1. Symptomatic atrial flutter s/p CTI ablation. 2. EP study revealing no retrograde accessory conduction. 3. 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 PLAN: 1. Anticoagulation after 4hrs of sheath removal with DOAC 2. Groin precautions. Abel Castaneda MD Cardiac Electrophysiology [facility] 12-16-2023 Note [place] Electrophysiology Consult Note Reason for visit: Afib [...] on Eliquis. Goes to cardiac rehab at [facility] a few times a week. Had [...] mouth in the morning. 90 tablet 3 lqchelbkgnl-xwratucwb-tgdxqieq 200-62.5-25 mcg blister with device Inhale in [...] Carotid Arteries: bilat (more content not included)... [facility] 12-01-2023 Evaluation note Encounter Date Diagnosis Assessment Notes Nov, Severe chronic obstructive pulmonary disease (ICD-10 - J44.9) [employer] Other 12-15-2023 Evaluation note* Encounter Date Diagnosis Assessment Notes Treatment Notes Treatment Clinical Notes Oct, Unspecified atrial fibrillation (ICD-10 - I48.91) Continue meds, followup w cardio. Pt has not heard from Cardiac rehab, will reach out as he was referred by [facility] Oct, Unspecified atrial flutter (ICD-10 - I48.92) Oct, Chronic systolic congestive heart failure (ICD-10 - I50.22) Pt symptoms are improving. Oct, Sepsis due to Escherichia coli without acute organ dysfunction (ICD-10 - A41.51) Resolved. Has finished course of antibiotics Oct, Severe chronic obstructive pulmonary disease (ICD-10 - J44.9) Pt on nicotine patch. Continue to followup w pulmonology. [employer] Other [id number] NoteCardiovascular Medicine [facility] SUBJECTIVE Chief Complaint Patient presents with Hospital Follow-up Atrial Flutter Congestive Heart Failure Alejandro Maradiaga is a 68 y.o. male here for follow-up after his recent admission to [facility]. HPI He initially presented to [facility] with c/o back pain and nausea. [...] presented emergency department as a transfer from [facility] for uncontrolled atrial flutter. Patient eventually presented to [facility] on 10/13/2020 treated with chief complaint of [...] possible cardioversion by cardiology here at [facility]. Echocardiogram revealed atrial flutter with right [...] Problem List Diagnosis Atrial fibrillation, unspecified type ([facility]/HCC) Acute pyelonephritis Systolic CHF ([facility]/HCC) COPD (chronic obstructive pulmonary disease) ([facility]) Past Medical History: Diagnosis Date Abnormal ECG Arrhythmia Atrial fibrillation ([facility]) CHF (congestive heart failure) ([facility]) Family History Problem Relation Name [...] mouth in the morning., Disp: , Rfl: ytzpwygoqun-pugjbljzz-ufqigsgs 200-62.5-25 mcg blister with device, Inhale in [...] patch before rabia (more content not included)... [facility]12-13-2023 NotePatient here for follow up [facility]. He underwent heart cath with Dr. Mckeon, and TESS/cardioversion. Feels better s/p discharge. Denies chest pain, SOB, lightheadedness/syncope, palpitations, and bleeding on Eliquis. Review of Systems Gastrointestinal: Positive for diarrhea.[facility] 09-01-2023 Evaluation note* Encounter Date Diagnosis Assessment Notes Treatment Notes Treatment Clinical Notes Aug, Severe chronic obstructive pulmonary disease (ICD-10 - J44.9) Referral to pulmonary rehab Aug, Tobacco use disorder (ICD-10 - F17.200) [employer] Other 10-16-2023 Evaluation note* Encounter Date Diagnosis Assessment Notes Treatment Notes Treatment Clinical Notes Aug, Chronic bronchitis, unspecified chronic bronchitis type (ICD-10 - J42) [employer] Other 08-29-2023 Evaluation note* Encounter Date Diagnosis Assessment Notes Treatment Notes Treatment Clinical Notes Jun, Chronic bronchitis, unspecified chronic bronchitis type (ICD-10 - J42) [employer] Other 08-11-2023 Evaluation note* Encounter Date Diagnosis [...] likes to keep an rx on hand. [employer] Other 05-01-2023 History general Narrative - Reported* Type Description Date Medical History COPD Medical History Seasonal allergies Medical History Hyperlipidemia Surgical History Cataract surgery, both 03/2023 Surgical History Sinus surgery 2019 Surgical History C7 surgery and foramenostomy 19 93 [employer] Other 05-01-2023 History general Narrative - Reported* Type Description Date Medical History Seasonal allergies Medical History Hyperlipidemia Surgical History Cataract surgery, both 03/2023 Surgical History Sinus surgery 2019 Surgical History C7 surgery and foramenostomy 19 93 Hospitalization History rt fibula fx 2017 [employer] Other 05-01-2023 History general Narrative - Reported* Type Description Date Medical History Seasonal allergies Medical History Hyperlipidemia Medical History Afib Surgical History Cataract surgery, both 03/2023 Surgical History Sinus surgery 2019 Surgical History C7 surgery and foramenostomy 19 93 Hospitalization History rt fibula fx 2017 [employer] Other 01-16-2023 History of Present illness Narrative* Jenni Huang, PT - 11/25/2022 12:15 PM EST [facility] [place] [address] [place] [address] Physical Therapy Treatment Patient Name: Alejandro Maradiaga Date of : 1955 Today's Date: 11/25/22 Visit Number: 7 Referring Provider: Hunter Cortes DO Patient Primary Language: Tongan Referring Diagnosis: Spondylosis without myelopathy or radiculopathy, [...] symptoms by > 50%. 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 [] Goals met, discharge to HEP [] Hold or discharge therapy due to: Jenni Huang PT documented in this encounterJefferson Abington [id number] History of Present illness Narrative* Jenni Huang PT - 11/20/2022 12:00 PM EST [facility] [place] [address] [place] [address] Physical Therapy Treatment Patient Name: Alejandro Maradiaga Date of : 1955 Today's Date: 11/20/22 Visit Number: 6 Referring Provider: Hunter Cortes DO Patient Primary Language: Tongan Referring Diagnosis: Spondylosis without myelopathy or radiculopathy, [...] symptoms by > 50%. [] [] [] Shelter Goals - 4 weeks Met Progressing Towards [...] current frequency to advance towards short and residential goals. [] Goals met, discharge to HEP [] Hold or discharge therapy due to: Jenni Huang PT documented in this encounterJefferson Abington [id number] History of Present illness Narrative* Jenni Huang PT - 11/18/2022 9:00 AM EST [facility] [place] [address] [place] [address] Physical Therapy Treatment Patient Name: Alejandro Maradiaga Date of : 1955 Today's Date: 11/18/22 Visit Number: 5 Referring Provider: Hunter Cortes DO Patient Primary Language: Tongan Referring Diagnosis: Spondylosis without myelopathy or radiculopathy, cervical region [M47.812] Diagnoses: ICD-10-CM ICD-9-CM 1. Spondylosis without myelopathy or radiculopathy, cervical region M47.812 721.0 2. Neck pain M54.2 723.1 3. Cervicalgia M54.2 723.1 4. Chronic left shoulder pain M25.512 719.41 G89.29 338.29 5. Left shoulder pain, unspecified chronicity M25.512 719.41 Evaluation Assessment: Alejadnro Maradiaga is a 67 y.o. who presents [...] reduced symptoms. Time in/Time out Time in: 09 Time out: 09 Time Calculation (min): 45 Subjective: Pt reports [...] symptoms by > 50%. 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 [] Goals met, discharge to HEP [] Hold or discharge therapy due to: Jenni Huang PT documented in this encounterJefferson Abington [id number] History of Present illness Narrative* Sheila Ace MA - 11/15/2022 9:50 AM EST Pt called for a refill on Trelegy Ellipta 200-62.5-25 mcg inhaler. Stated he got both of his albuterols but not Trelegy Ellipta. documented in this encounterJefferson Abington HospitalUcsqqz56-89-2051 History of Present illness Narrative* Jenni Huang PT - 11/14/2022 1:30 PM EST [facility] [place] [address] [facility] [place] [address] Physical Therapy Treatment Patient Name: Alejandro Maradiaga Date of : 1955 Today's Date: 11/14/22 Visit Number: 4 Referring Provider: Hunter Cortes DO Patient Primary Language: Tongan Referring Diagnosis: Spondylosis without myelopathy or radiculopathy, cervical region [M47.812] Diagnoses: ICD-10-CM ICD-9-CM 1. Spondylosis without myelopathy or radiculopathy, cervical region M47.812 721.0 2. Neck pain M54.2 723.1 3. Cervicalgia M54.2 723.1 4. Chronic left shoulder pain M25.512 719.41 G89.29 338.29 5. Left shoulder pain, unspecified chronicity M25.512 719.41 Evaluation Assessment: Edward A Belkin is a 67 y.o. who presents to [...] symptoms by > 50%. [] [] [] Airport Operations Duty Manager Goals - 4 weeks Met Progressing Towards [...] current frequency to advance towards short and supervisor wool shearing goals. [] Goals met, discharge to HEP [] Hold or discharge therapy due to: Jenni Huang PT documented in this encounterJefferson Abington [id number] History of Present illness Narrative* Rhonda Kaiser MD - 11/14/2022 10:30 AM EST Images from the original note were not included. Pulmonary and Sleep Medicine [address], [address] [place] [address] Time:11:24 AM EST Reason for Consultation: COPD History Of Present Illness (includes Chief Complaint) Alejandro Maradiaga is a 67 y.o. male who was referrred to our office for COPD. 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 Patient in the past saw Dr. Tolentino, for over 14 years. However he did switch to [facility], and our office is much more convenient [...] love of saline and possibly moving to [facility] where he does have a sailboat. He also has a daughter who teaches [place] in [facility]. 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 see an tap dancer Prior history of latex allergy COPD Surgical [...] DR capsule, 1 capsule, Disp: , Rfl: jguprytrqwv-rgqdmqndoqqk-aqoxhzuacb (Trelegy Ellipta) 200-62.5-25 mcg inhaler, Inhale 1 puff (200 mcg total) by mouth 1 (one) time each day., Disp: 60 each, Rfl: 4 fjwevvxndxw-whedsjksucdf-bbxiwyyzel (Trelegy Ellipta) 200-62.5-25 mcg inhaler, Inhale 1 puff by mouth daily, Disp: 60 each, Rfl: 4 nyonqcaagbf-islrdulyeyxv-hswtyiybri (Trelegy Ellipta) 200-62.5-25 mcg inhaler, Inhale 1 puff by mouth daily, Disp: 60 each, Rfl: 4 tewyzbjpbds-crtdnonzpmir-jydtkskrny (Trelegy Ellipta) 200-62.5-25 mcg inhaler, Inhale 1 [...] - General (Internal Medicine) documented in this encounterJefferson Abington [id number] History of Present illness Narrative* Jenni Reina, PT - 11/12/2022 3:00 PM EST [facility] [place] [address] [place] [address] Physical Therapy Treatment Patient Name: Alejandro Maradiaga Date of : 1955 Today's Date: 11/12/22 Visit Number: 3 Referring Provider: Hunter Cortes DO Patient Primary Language: Tongan Referring Diagnosis: Spondylosis without myelopathy or radiculopathy, [...] symptoms by > 50%. [] [] [] Shelter Goals - 4 weeks Met Progressing Towards [...] current frequency to advance towards short and residential goals. [] Goals met, discharge to HEP [] Hold or discharge therapy due to: Jenni Huang PT documented in this encounterJefferson Abington HospitalPwfeqw63-00-4300 History of Present illness Narrative* Jenni Huang PT - 11/05/2022 11:30 AM EST [facility] [place] 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 Pain In: 4/10 Out: 2/10 Objective: Poor [...] symptoms by > 50%. 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 [] Goals met, discharge to HEP [] Hold or discharge therapy due to: Jenni Huang PT documented in this encounterJefferson Abington [id number] History of Present illness Narrative* Jenni Huang PT - 10/30/2022 9:30 AM EST [facility] [place] 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 [] [] [] Shelter Goals - 4 weeks Met Progressing Towards [...] plan: Yes Treatment Plan: [x] Therapeutic Exercise (21452) [] Iontophoresis: 4 mg/mL Dexamethasone Sodium Phosphate 40-120 mAmin (30191) [x] Therapeutic Activity (98037) [] Ultrasound (91880) [] Gait Training (07095) []Electrical Stimulation Unattended (50515) [x] Neuromuscular Re-education (02762) [] Electrical Stimulation Attended (48554) [x] Manual Therapy (00621) [] Aquatic Therapy (24794) [x] Instruction in HEP [] Lumbar/Cervical Traction () [] [] Dry Needling, 1 or 2 muscles () [] [] Dry Needling, 3 or more muscles () [] Vasopneumatic cold with compression () [] Hot pack/Cold Pack [facility] [place] [address] [place] [address] Physical Therapy Treatment Patient Name: Alejandro Maradiaga Date of : 1955 Today's Date: 10/30/22 Visit Number: 1 Referring Provider: Hunter Cortes DO Patient Primary Language: Tongan Referring Diagnosis: Spondylosis without myelopathy or radiculopathy, [...] symptoms by > 50%. 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 [] Goals met, discharge to HEP [] Hold or discharge therapy due to: Jenni Huang, PT documented in this encounterJefferson Abington HospitalIftwpe13-52-5233 History of Present illness Narrative* Kalie Meléndez, [...] to self massage Modalities: PRN: [facility] traction Precautions: none, L RCR [...] goals. Kalie Meléndez PT documented in this encounterJefferson Abington HospitalCwhpug42-71-4910 Physician Hospital Dis[facility]EM[facility] DISCHARGE SUMMARY PATIENT NAME:ALEJANDRO MARADIAGA MRN: [id number] AGE: 66 Years SEX: Male PHONE:[phone] DOS: 07/12/2021 06:15:00 : 1955 ER PHYSICIAN:Kamlesh [...] No pneumothorax.IMPRESSION:Mild right midlung opacity suspicious for infiltrate.[facility] [place] thanks you for the opportunity to care for your patient. Workstation ID: [id number] DIAGNOSTICS: FOLLOW UP: With: Address: When: Elle Cortes [facility] , [address] [place] [id number] Business (1) Comments: [facility]ment[facility] Bacteria identified Aer cx Nom (Drain)[facility] Microbiology PROCEDURE: Culture Drainage SOURCE: Sinus [...] Tetracycline Resistant >=16 Trimethoprim/ Susceptible <=10 SulfamethoxazoleMount Coshocton Regional Medical CenterComment on above:Performed By: #### 607-2 #### [place] [address] [facility] note* Diagnosis Cervicalgia- Primary documented in this encounter [facility] note* Diagnosis Spondylosis without myelopathy or radiculopathy, cervical region- Primary Neck pain Cervicalgia documented in this encounter [facility] note* Diagnosis Spondylosis without myelopathy or radiculopathy, cervical region- Primary Neck pain Cervicalgia Cervicalgia Chronic left shoulder pain Pain in joint, shoulder region Left shoulder pain, unspecified chronicity documented in this encounter [facility] note* Diagnosis Nicotine dependence, uncomplicated, unspecified nicotine product type- Primary Chronic obstructive pulmonary disease, unspecified COPD type ([facility]) documented in this encounter [facility] note* Diagnosis Spondylosis without myelopathy or radiculopathy, cervical region- Primary Neck pain Cervicalgia Cervicalgia Chronic left shoulder pain Pain in joint, shoulder region Left shoulder pain, unspecified chronicity documented in this encounter [facility] note* Diagnosis Spondylosis without myelopathy or radiculopathy, cervical region- Primary Neck pain Cervicalgia Cervicalgia Chronic left shoulder pain Pain in joint, shoulder region Left shoulder pain, unspecified chronicity documented in this encounter [facility] noteNo [facility] PENRITH Other Evaluation note* Diagnosis Onset Date Resolution Status Severe chronic obstructive pulmonary disease acute [facility] Work Phone: Evaluation noteNo assessment information available [facility] Work Phone: Evaluation note* Diagnosis Onset Date Resolution Status Chronic systolic congestive heart failure acute Severe chronic obstructive pulmonary disease acute Unspecified atrial flutter a cute Severe chronic obstructive pulmonary disease acute Unspecified atrial flutter a cute [facility] Work Phone: Reason for visit Narrative* Consultation (Routine) - Authorized Specialty Diagnoses / Procedures Referred By Kenny glover Referred To Contact Physical Therapy Diagnoses Pain in left shoulder Cervicalgia Sinan Ac MD [address] [place] [address] [facility] [address] [facility] [address] [place] [address] Referral ID Status Reason Start Date Expiration Date Visits Requested Visits Authorized [id number] Authorized Specialty Services Required 01/15/2022 07/14/2022 1 8 [facility] for visit Narrative* Consultation (Routine) - Authorized Specialty Diagnoses / Procedures Referred By Kenny glover Referred To Contact Physical Therapy Diagnoses Spondylosis without myelopathy or radiculopathy, cervical region Hunter Cortes, DO [address] [place] [address] [facility] [address] [facility] [address] [place] [phone] Referral ID Status Reason Start Date Expiration Date Visits Requested Visits Authorized [id number] Authorized Specialty Services Required 04/07/2023 1 8 [facility] Summary Purpose Family History No Family History Records Found Relationship Condition Age at Onset Recorded Date/T braden father Unknown Diabetes mellitus Unknown Not Specified History of stroke Unknown Unknown Relationship Condition Age at Onset Recorded Date/T braden father Unknown Diabetes mellitus Unknown mother History of stroke Unknown Unknown Advance Directives No Advanced Directives Records FoundDocuments on File Type Date Recorded Patient [employer] anation 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 Advance Directive Response Recorded Date/ Time Advance Directives Yes February 09 3:32pm Advance Directive Response Recorded Date/ Time Advance Directives No November 18, 2023 4:52pm Reason for Referral Specialty Diagnoses / Procedures Referred By Kenny glover Referred To Contact Diagnoses Chronic obstructive pulmonary disease, unspecified COPD type (CMS/HCC) Rhonda Kaiser MD [address] [address] Referral ID Status Reason Start Date Expiration Date Visits Re quested Visits Authorized [id number] Closed 1 1 Specialty Diagnoses / Procedures Referred By Kenny glover Referred To Contact Radiology Diagnoses Nicotine dependence, uncomplicated, unspecified nicotine product type Procedures CT Lung Screening Rhonda Kaiser MD [address] [facility] [address] [place] [address] [facility] [place] Referral ID Status Reason Start Date Expiration Date V isits Requested Visits Authorized [id number] Authorized 11/14/2022 05/13/2023 1 1 Reason *Waiting for appt Establish for COPD - moved here from [place] Diagnosis 1 Chronic bronchitis, unspecified chronic bronchitis type (J42) Referral Organization [facility] mor Referring Provider First Name Shanell Referring Provider Last Name Kiara Referring Provider Specialty [facility] Referred Organization [facility] Referred Provider Tima Osorio Referred Address [address] [place] [address],[address],[address] Referred Provider Specialty Pulmonary Di seases Referral Priority Routine General Notes Nga Arellano 03:29:44 PM >received today, sent P2P Chief Complaint and Reason for Visit Chief Complaint j44.9 3 Month f/u- COPD Reason for Visit Severe chronic obstr uctive pulmonary disease Chief Complaint j44.9 3 Month f/u- COPD 4 MONTH CHECK UP Reason for Visit Severe chronic obstr uctive pulmonary disease Chief Complaint Ref: Dr Craig- Copd Ut Follow Up j44.9 Chief Complaint 4 MONTH CHECK UP 3 month f/u LDCT Reason for Visit Chronic systolic con gestive heart failure Severe chronic obstructive pulmonary disease Unspecified atrial flutter Severe chronic obstructive pulmonary disease Unspecified atrial flutter Additional Source Comments (unrecognized sect ion and content) No Status Records FoundNo Status Records FoundNo Status Records FoundNo Status Records FoundNo Status Records FoundNo Status Records FoundNo Status Records Found INFORMATION SOURCE (unrecogn ized section and content) DATE CREATED AUTHOR 07/13/2021 [facility] DATE CREATED AUTHOR AUTHOR'S ORGANIZ ATION 11/25/[address] [facility] DATE CREATED AUTHOR AUTHOR'S ORGANIZ ATION 01/18/2023 [facility] DATE CREATED AUTHOR AUTHOR'S ORGANIZ ATION 03/04/2023 [facility] DATE CREATED AUTHOR AUTHOR'S ORGANIZ ATION 12/19/2023 [facility] DATE CREATED AUTHOR AUTHOR'S ORGANIZ ATION 02/05/2024 [facility] DATE CREATED AUTHOR AUTHOR'S ORGANIZ ATION 10/21/2024 [facility] Care Teams (unrecognized sec tion and content) 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 Relationship Specialty Start Date End Date Elle Cortes MD [address] [address] PCP - General Internal Medicine 10/18/21 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 Relationship Specialty Start Date End Date Elle Cortes MD [address] [address] PCP - General Internal Medicine 10/18/21 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 Relationship Specialty Start Date End Date Elle Cortes MD [address] [address] PCP - General Internal Medicine 10/18/21 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 Relationship Specialty Start Date End Date Elle Cortes MD [address] [address] PCP - General Internal Medicine 10/18/21 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 Relationship Specialty Start Date End Date Elle Cortes MD [address] [address] PCP - General Internal Medicine 10/18/21 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 Relationship Specialty Start Date End Date Elle Cortes MD [address] [facility] [address] [place] [address] PCP - General Internal Medicine 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/21 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 Relationship Specialty Start Date End Date Elle Cortes MD [address] [facility] [address] [place] [address] PCP - General Internal Medicine 10/18/21 Team Status: Active Member Role Status Narda Craig MD Primary Care Provider Active Team Status: Inactive Member Role Status Narda Ontiveros MD Attending Provider Active Star t: November 27, 2023 End: November 27, 2023 Shanell Craig MD Primary Care Provider Active Start: November 27, 2023 End: November 27, 2023 Team Status: Active Member Role Status Narda Craig MD Primary Care Provide r, Attending Provider Active Start: January 15, 2024 Team Status: Inactive Member Role Status Narda Craig MD Primary Care Provider Active Start: February 10, 2024 End: February 10, 2024 Tima Osorio MD Attending Provider Active Start: February 10, 2024 End: February 10, 2024 Team Status: Inactive Member Role Status Narda Craig MD Primary Care Provide r, Attending Provider Active Start: February 23, 2024 End: February 23, 2024 Team Status: Inactive Member Role Status Narda Ontiveros MD Attending Provider Active Star t: September 01, 2023 End: September 01, 2023 Team Status: Inactive Member Role Status Narda Craig MD Attending Provider Active St art: October 24, 2023 End: October 24, 2023 Team Status: Inactive Member Role Status Narda Craig MD Primary Care Provider Active Start: May 18, 2024 End: May 18, 2024 Tima Osorio MD Attending Provider Active Start: May 18, 2024 End: May 18, 2024 Ordered Prescriptions (unrec ognized section and content) [...] 11/26/2022 ipratropium-albuteroL (DUONEB) 0.5-2.5 mg/3 mL nebulizer solutionIndications:Customer Consultant carmen obstructive pulmonary disease, unspecified COPD type [...] Dispensed Refills Start Date End Da te dbmekigwdau-gmxfabjokfyh-mm lanterol (Trelegy Ellipta) 200-62.5-25 mcg inhaler Inhale 1 puff (200 mcg total) by mouth 1 (one) time each day. 60 each 4 11/15/2022 Reason for Visit (unrecogniz ed section and content) Reason Onset Date Comments Med Refill 11/15/2022 Goals (unrecognized section and content) Goals may be documented in a n alternate section FOR RECORDS PERTAINING TO PATIENTS WHO ARE [...] BE BASED ON THE PRIMARY CLINICAL RECORDS. [facility] [employer] [facility]. provides no warranty or guarantee of the accuracy or completeness of information in this document.
[2024-10-29 14:07] LABS: Bilirubin Urine SMALL (NEGATIVE); Blood Urine NEGATIVE (NEGATIVE); Clarity Urine CLEAR (CLEAR); Color Urine DK. YELLOW (YELLOW); Glucose Urine UA NEGATIVE (NEGATIVE); Ketones Urine TRACE mg/dL (NEGATIVE); Leukocyte Esterase Urine NEGATIVE (NEGATIVE); Nitrite Urine NEGATIVE (NEGATIVE); Protein Urine TRACE mg/dL (NEG/TRACE); Specific Gravity Urine >=1.030 (1.005-1.025)
[2024-10-29 14:09] LABS: Urine Microscopic Indicated NO
== END 2024-10-29 13:50 | disposition home or self-care (01) ==
LOC: LAB 13:50
PROVIDERS: PCP Family Medicine; Visit Provider Family Medicine
DX: N39.0 Urinary tract infection, site not specified (principal); Z12.5 Encounter for screening for malignant neoplasm of prostate
CPT/HCPCS: 36415; 81003; G0103

== ENCOUNTER 2025-02-14 11:46 | Outpatient (OUT) | payer MEDICARE, SELFPAY ==
[2025-02-14 12:12] LABS: Basophils Absolute Auto 0.1 10^3/uL (0.0-0.1); Basophils Percent Auto 0.9 % (0.2-2.0); Eosinophils Absolute Auto 0.3 10^3/uL (0.0-0.7); Eosinophils Percent Auto 3.8 % (0.9-7.0); Hematocrit 45.1 % (42.0-54.0); Hemoglobin 15.8 g/dL (14.0-18.0); Immature Granulocytes Abs Auto 0.04 10^3/uL (0.00-0.03); Immature Granulocytes Pct Auto 0.5 % (0.0-0.5); Mean Corpuscular Hemoglobin 34.6 pg (25.9-34.0); Mean Corpuscular Volume 98.7 fL (80.0-94.0); Mean Platelet Volume 9.7 fL (9.5-13.5); Monocytes Absolute Auto 0.6 10^3/uL (0.3-0.8); Monocytes Percent Auto 7.2 % (1.7-12.0); Neutrophils Absolute Auto 4.1 10^3/uL (1.4-6.5); Neutrophils Percent Auto 50.6 % (43.0-75.0); Platelet Count 294 10^3/uL (150-450); Red Blood Count 4.57 10^6/uL (4.70-6.10); Red Cell Distribution Width 12.4 % (11.0-15.0); White Blood Count 8.1 10^3/uL (4.0-11.0)
[2025-02-14 12:42] LABS: Estimated Average Glucose 108 mg/dL; Glycohemoglobin A1C 5.4 % (4.5-6.2)
== END 2025-02-14 11:47 | disposition home or self-care (01) ==
PROVIDERS: PCP Family Medicine; Visit Provider Family Medicine
DX: R73.09 Other abnormal glucose (principal)
CPT/HCPCS: 36415; 83036; 85025

== ENCOUNTER 2025-03-10 07:58 | Emergency (ER) | payer MEDICARE, SELFPAY ==
[2025-03-10] VITALS (16 sets, daily range): BP systolic 119–140; BP diastolic 78–96; PULSE 81–91; TEMP 37.3; O2SAT 91–97; BMI 23.4
--- NOTE | 2025-03-10 08:29 | ED_ITS ---
HPI HPI - General Adult General Chief complaint: Shortness of Breath/Dyspnea Stated complaint: shortness of breath - copd Time Seen by Provider: 03/10/25 08:01 Source: patient Mode of arrival: walk-in Limitations: no limitations History of Present Illness HPI narrative: This 69-year-old male patient presents to the ED stating he has a history of emphysema and on the last 2 days his oxygen saturations have been running in the 80s. He feels more short of breath. He uses DuoNeb via nebulizer 3 times a day. He does not use oxygen at home. He is a cigarette smoker. He has a past history of atrial flutter. He is not on any blood thinners. Related Data Home Medications ?Medication ?Instructions ?Recorded ?Confirmed albuterol sulfate 90 mcg/actuation 2 inh inhalation Q6 H PRN shortness 10/13/23 03/10/25 aerosol inhaler of breath or wheezing fluticasone fur. 200 mcg-umeclid 1 inh inhalation MARILOU Y 10/13/23 03/10/25 62.5 mcg-vilant 25 mcg inhalat.powder (Trelegy Ellipta) ipratropium 0.5 mg-albuterol 3 mg 3 ml inhalation TID 10/13/23 03/10/25 (2.5 mg base)/3 mL nebulization soln lisinopril 5 mg tablet 5 mg PO DAILY 03/10/2503/10 Previous Rx's ?Medication ?Instructions ?Recorded cefdinir 300 mg capsule 600 mg (2 x 300 mg) PO DAILY #20 10/18/24 caps prednisone 20 mg tablet 60 mg (3 x 20 mg) PO DAILY # 12 tabs 10/18/24 doxycycline hyclate 100 mg capsule 100 mg PO BID 10 da ys #20 caps 03/10/25 prednisone 20 mg tablet 40 mg (2 x 20 mg) PO DAILY 5 days 03/10/25 #10 tabs Allergies Allergy/AdvReac Type Severity Reaction Status Date / Time latex Allergy Severe Chest Pain Verified 03/10/25 08:19 adenosine Allergy Intermediate dyspnea Verified 03/10/25 08:19 Opioid HPI Opioid Management Most Recent Opioid Data: Last Pain Scale 0 10/15/23, 15:00 Last ORT Total Score 0 10/17/24, 10:51 Last ORT Risk Category Low Risk 10/17/24, 10:51 Review of Systems ROS Status of ROS 10 or more systems reviewed and unremark able except as noted in history and below [facility] Medical History Acute exacerbation of chronic obstructive pulmonary disease ?J44.1 - Chronic obstructive pulmonary disease with (acute) exacerbation (ICD-10) Atrial flutter with rapid ventricular response ?I48.92 - Unspecified atrial flutter (ICD-10) Tachycardia ?R00.0 - Tachycardia, unspecified (ICD-10) History of cardiac monitoring ?Z92.89 - Personal history of other medical treatment (ICD-10) UTI (urinary tract infection) ?N39.0 - Urinary tract infection, site not specified (ICD-10) Atrial flutter ?I48.92 - Unspecified atrial flutter (ICD-10) Chronic systolic heart failure ?I50.22 - Chronic systolic (congestive) heart failure (ICD-10) Acute pyelonephritis ?N10 - Acute pyelonephritis (ICD-10) Acute pyelitis ?N10 - Acute pyelonephritis (ICD-10) COPD (chronic obstructive pulmonary disease) ?J44.9 - Chronic obstructive pulmonary disease, unspecified (ICD-10) Hypercholesteremia ?E78.00 - Pure hypercholesterolemia, unspecified (ICD-10) Surgical History S/P ablation of atrial flutter ?Z98.890 - Other specified postprocedural states (ICD-10) ?Z86.79 - Personal history of other diseases of the circulatory system (ICD- 10) H/O sinus surgery ?Z98.890 - Other specified postprocedural states (ICD-10) Family History Mother Family history of stroke Other Family history of COPD (chronic obstructive pulmonary disease) Family history of hypertension Social History Within the past year, how often did you have a drink containing alcohol: 4 or more times a week Within the past year, how many standard drinks containing alcohol did you have on a typical day: 1 or 2 Within the past year, how often did you have six or more drinks on one occasion: never Total score: 0 Score interpretation: Questions 2 and 3 are 0. It can be assumed that the patient's drinking is below the recommended limits. However, please confirm the accuracy of the patient's alcohol intake over the last few months. 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 Highest level of school completed/degree received: Professional degree (MD, [employer], DVM, DDS) Are you now , , , , never or living with a partner: Little interest or pleasure in doing things: not at all Feeling down, depressed, or hopeless: not at all Feel stressed/tense/nervous/anxious/difficulty sleeping: not at all Do you think of yourself as: straight/heterosexual Gender Identity: male Exam Narrative Exam Narrative: Patient does not appear in acute distress. His oxygen saturation was 91% on room air upon arrival and he was placed on oxygen at 2 L a minute which brought it up to 96%. There is no conversational dyspnea. HEENT exam is normal to inspection. Neck is supple. Lung sounds are diminished throughout. Heart has distant sounds with regular rate and rhythm. Abdomen is protuberant, soft nontender. There is no organomegaly. Patient does not have calf tenderness or unilateral swelling of the leg. There is no facial asymmetry. Speech and mentation are clear and intact. He moves all extremities actively. Constitutional Vital Signs, click to edit/add: Last Vital Signs Temp 99.2 F 03/10/25 08:20 Pulse 88 03/10/25 11:17 Resp 20 03/10/25 11:17 BP 133/96 H 03/10/25 11:17 Pulse Ox 97 03/10/25 11:17 O2 Del Method Nasal Cannula 03/10/25 08:55 O2 Flow Rate 2 03/10/25 08:55 Course Vital Signs Vital signs: Vital Signs Blood Pressure 119/87 03/10/25 08:17 Pulse Oximetry 95 03/10/25 08:17 Temperature 99.2 F 03/10/25 08:20 Pulse Rate 88 03/10/25 11:17 Respiratory Rate 20 03/10/25 11:17 Blood Pressure 133/96 H 03/10/25 11:17 Pulse Oximetry 97 03/10/25 11:17 Oxygen Delivery Method Nasal Cannula 03/10/25 08:55 Oxygen Delivery Flow Rate 2 03/10/25 08:55 Medical Decision Making MDM Narrative Medical decision making narrative: The twelve-lead EKG is interpreted by me and shows sinus rhythm with a rate of 87 beats a minute. There is right bundle branch block pattern. No acute ST elevation is noted. 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 CBC is fairly unremarkable. MCV is somewhat elevated. Platelets are normal. The white count is normal at 7000. Dimer is normal. Electrolytes and kidney function are normal. Chest x-ray did not show infiltrate. Patient reported marked improvement in symptoms after a DuoNeb aerosol treatment and Solu-Medrol 125 mg IV. He was taken off of oxygen and walked up and down the dial. He maintained a good oxygen saturation in the mid 90s. He is placed on prednisone 40 mg daily for 5 days and doxycycline 100 mg twice a day for 10 days upon discharge. Follow-up as advised with PCP. Smoking cessation was discussed with him. He is to return anytime for worsening symptoms. Lab Data Labs: Lab Results 03/10/25 Range/Units 08:36 WBC 7.0 (4.0-11.0) 10^3/uL RBC 4.44 L (4.70-6.10) 10^6/uL Hgb 15.1 (14.0-18.0) g/dL Hct 44.0 (42.0-54.0) % MCV 99.1 H (80.0-94.0) fL MCH 34.0 (25.9-34.0) pg MCHC 34.3 (29.9-35.2) g/dL RDW 13.0 (11.0-15.0) % Plt Count 259 (150-450) 10^3/uL MPV 9.7 (9.5-13.5) fL Neut % (Auto) 54.7 (43.0-75.0) % Lymph % (Auto) 26.1 (20.5-60.0) % Highland % (Auto) 13.1 H (1.7-12.0) % Eos % (Auto) 5.1 (0.9-7.0) % Baso % (Auto) 0.6 (0.2-2.0) % Neut # (Auto) 3.8 (1.4-6.5) 10^3/uL Lymph # (Auto) 1.8 (1.2-3.8) 10^3/uL Highland # (Auto) 0.9 H (0.3-0.8) 10^3/uL Eos # (Auto) 0.4 (0.0-0.7) 10^3/uL Baso # (Auto) 0.0 (0.0-0.1) 10^3/uL Abs Immat Gran (auto) 0.03 (0.00-0.03) 10^3/uL Imm/Tot Granulo (auto) 0.4 (0.0-0.5) % D-Dimer 0.39 (<=0.59) mg/L FEU Sodium 137 (136-145) mmol/L Potassium 4.0 (3.5-5.1) mmol/L Chloride 101 (98-107) mmol/L Carbon Dioxide 24.8 (21.0-32.0) mmol/L Anion Gap 15.2 BUN 9.0 (7.0-18.0) mg/dL Creatinine 0.78 (0.70-1.30) mg/dL Est GFR ( Amer) >60 (>=60 mL/min/1.73m^2) Est GFR (Non-Af Amer) >60 (>=60 mL/min/1.73m^2) BUN/Creatinine Ratio 11.5 Glucose 145 H (74-106) mg/dL Calcium 9.1 (8.5-10.1) mg/dL Total Bilirubin 1.4 H (0.2-1.0) mg/dL AST 27 (15-37) U/L ALT 27 (16-63) U/L Alkaline Phosphatase 109 (46-116) U/L Troponin I High Sens 9.0 (4.0-76.1) pg/mL NT-Pro-B Natriuret Pep 211.0 (<=900.0) pg/mL Total Protein 7.4 (6.4-8.2) g/dL Albumin 3.9 (3.4-5.0) g/dL Globulin 3.5 g/dL Albumin/Globulin Ratio 1.1 Discharge Plan Discharge Chief Complaint: Shortness of Breath/Dyspnea Clinical Impression: Acute exacerbation of chronic obstructive pulmonary disease Patient Disposition: Home, Self-Care Time of Disposition Decision: 10:41 Condition: Fair Mode of Transportation: Private Vehicle Prescriptions / Home Meds: New doxycycline hyclate 100 mg capsule 100 mg PO BID 10 Days Qty: 20 0RF prednisone 20 mg tablet 40 mg PO DAILY 5 Days Qty: 10 0RF No Action albuterol sulfate 90 mcg/actuation HFA aerosol inhaler 2 inh INHALATION Q6H PRN (Reason: shortness of breath or wheezing) Trelegy Ellipta 200-62.5-25 mcg blister with device 1 inh INHALATION DAILY ipratropium-albuterol 0.5 mg-3 mg(2.5 mg base)/3 mL solution for nebulization 3 ml inhalation TID lisinopril 5 mg tablet 5 mg PO DAILY prednisone 20 mg tablet 60 mg PO DAILY Qty: 12 0RF cefdinir 300 mg capsule 600 mg PO DAILY Qty: 20 0RF Print Language: South African Instructions: COPD (Chronic Obstructive Pulmonary Disease) (ED) Additional Instructions: Medications as prescribed. Return for worsening symptoms. Referrals: Shanell Craig MD [Primary Care Provider, Family Practice] - 1 week Discharge Date/Time: 03/10/25 11:22
--- NOTE | 2025-03-10 08:30 | ECG_ITS ---
[facility] Test Date: 2025-03-10 Pat Name: GABRIELA JAFFE Department: Room: - Gender: Male Office Services Coordinator: : 1955 Requested By: [id number] Order Number: [id number] Reading MD: MAURILIO LAWRENCE M.D. Measurements Intervals Marcus Rate: 87 P: 76 MA: 212 QRS: -71 QRSD: 132 T: 63 QT: 392 QTc: 437 Interpretive Statements 1100 Sinus rhythm 2231 First degree AV block 2450 Right bundle branch block 2630 Left anterior fascicular block Bifascicular block 3134 Anterior myocardial infarction, age undetermined 3631 Inferior myocardial infarction, possibly acute 9150 abnormal ECG Compared to ECG 10/17/2024 08:56:49 First degree AV block now present Electronically Signed On 03-10-2025 23:23:45 EDT by MAURILIO LAWRENCE M.D.
[2025-03-10] MEDS: METHYLPREDNISOLONE SOD SUCC PF 125 MG/2 ML VIAL IVP (08:45)
[2025-03-10 08:47] LABS: Basophils Percent Auto 0.6 % (0.2-2.0); Eosinophils Absolute Auto 0.4 10^3/uL (0.0-0.7); Eosinophils Percent Auto 5.1 % (0.9-7.0); Hemoglobin 15.1 g/dL (14.0-18.0); Immature Granulocytes Abs Auto 0.03 10^3/uL (0.00-0.03); Immature Granulocytes Pct Auto 0.4 % (0.0-0.5); Lymphocytes Absolute Auto 1.8 10^3/uL (1.2-3.8); Lymphocytes Percent Auto 26.1 % (20.5-60.0); Mean Corpuscular HGB Conc 34.3 g/dL (29.9-35.2); Mean Corpuscular Volume 99.1 fL (80.0-94.0); Mean Platelet Volume 9.7 fL (9.5-13.5); Monocytes Absolute Auto 0.9 10^3/uL (0.3-0.8); Monocytes Percent Auto 13.1 % (1.7-12.0); Neutrophils Absolute Auto 3.8 10^3/uL (1.4-6.5); Neutrophils Percent Auto 54.7 % (43.0-75.0); Platelet Count 259 10^3/uL (150-450); Red Blood Count 4.44 10^6/uL (4.70-6.10)
[2025-03-10] MEDS: IPRATROPIUM/ALBUTEROL SULFATE 3 ML AMPUL.NEB IH (08:54)
[2025-03-10 09:04] LABS: Alanine Aminotransferase 27 U/L (16-63); Albumin Globulin Ratio 1.1; Albumin Level 3.9 g/dL (3.4-5.0); Alkaline Phosphatase 109 U/L (46-116); Anion Gap 15.2; Aspartate Amino Transferase 27 U/L (15-37); BUN Creatinine Ratio 11.5; Bilirubin Total 1.4 mg/dL (0.2-1.0); Calcium 9.1 mg/dL (8.5-10.1); Carbon Dioxide 24.8 mmol/L (21.0-32.0); Chloride 101 mmol/L (98-107); Estimated GFR (African America >60 (>=60 mL/min/1.73m^2); Estimated GFR (Non-African Ame >60 (>=60 mL/min/1.73m^2); Globulin 3.5 g/dL; Glucose 145 mg/dL (74-106); Sodium 137 mmol/L (136-145); Total Protein 7.4 g/dL (6.4-8.2)
[2025-03-10 09:07] LABS: D Dimer 0.39 mg/L FEU (<=0.59)
== END 2025-03-10 11:22 | disposition home or self-care (01) ==
PROVIDERS: Emergency Provider Emergency Medicine; PCP Family Medicine
DX: J43.9 Emphysema, unspecified (principal); R06.02 Shortness of breath; F17.210 Nicotine dependence, cigarettes, uncomplicated
CPT/HCPCS: 36415; 71046; 80053; 83880; 84484; 85025; 85378; 93005; 94640; 96374; 99285; J2919

== ENCOUNTER 2025-08-23 11:06 | Outpatient (OUT) | payer MEDICARE, SELFPAY ==
--- OUTSIDE RECORDS SUMMARY | 2025-08-16 10:15 | XMS_ITS | Encounter Summary ---
Author Organization [facility] Address [address] [place] [address] Care Team Providers Care Cobbler Upper Name Role Phone Shanell Craig MD Primary Care Provider [phone] Encounter Details Date Type Department Care Team (Late st Contact Info) Description 08/16/2025 10:15 AM EDT Office Visit [facility] Heart at [facility] [address] [place] [id number] Abel Castaneda MD [address] [place] [address] S/P ablation of atrial flutter (Primary Dx) Social History Tobacco Use Types Packs/Day Years Used Date Smoking Tobacco: Every Day Cigarettes 0.5 45.8 Started: 11/10/1979 Smokeless Tobacco: Never Tobacco Cessation:Ready to Q uit: Not Asked; Counseling Given: Not Answered Alcohol Use Standard Drinks/Week Comments Yes 0 (1 standard drink = 0.6 oz pur e alcohol) 1 per day Humiliation, Afraid, Rape, and Kick questionnair e Answer Date Recorded Within the last year, have y ou been afraid of your partner or ex-partner? No 10/15/2023 Emotionally Abused Not on file 10/15/2023 Physically Abused Not on file 10/15/2023 Sexually Abused Not on file 10/15/2023 Overall Financial Resource Strain (CARDIA) Answe r Date Recorded How hard is it for you to pa y for the very basics like food, housing, medical care, and heating? Not hard at all 10/15/2023 [place] Safety & [place] Answer Date Rec orded Within the last year, have y ou been afraid of your partner or ex-partner? No 10/15/2023 Emotionally Abused Not on file 10/15/2023 Physically Abused Not on file 10/15/2023 Sexually Abused Not on file 10/15/2023 In the past year have you be en physically or sexually abused? Unrecognized value 10/15/2023 Transportation Answer Date Recorded In the past 12 months, has l ack of transportation kept you from medical appointments or from getting medications? No 10/15/2023 Lack of Transportation (Non-Medical) Not on file 10/15/2023 Housing Stability Vital Sign Answer Jose e Recorded Unable to Pay for Housing in the Last Year Not o n file 10/15/2023 Number of Places Lived in the Last Year Not on f ile 10/15/2023 In the last 12 months, was t here a time when you did not have a steady place to sleep or slept in a senior living (including now)? No 10/15/2023 Hunger Vital Sign Answer Date Recorded Within the past 12 months, y ou worried that your food would run out before you got the money to buy more. Never true 10/15/20 23 Ran Out of Food in the Last Year Not on file 10/15/2023 Sex and Gender Information Value Date Recorded Sex Assigned at Male 01/21/2024 12:25 PM EDT Legal Sex Male 11:49 AM EST Gender Identity Male 01/21/2024 12:25 PM EDT Sexual Orientation Heterosexual or Straight 01/08 12:25 PM EDT documented as of this encounter Last Filed Vital Signs Vital Sign Reading Time Taken Comments Blood Pressure 121/79 08/16/2025 10:32 AM EDT Pulse 96 08/16/2025 10:32 AM EDT Temperature - - Respiratory Rate - - Oxygen Saturation 97% 08/16/2025 10:32 AM EDT Inhaled Oxygen Concentration - - Weight 78.5 kg (173 lb) 08/16/2025 10:32 AM EDT Height 180.3 cm (5' 11 ) 08/16/2025 10:32 AM EDT Body Mass Index 24.13 08/16/2025 10:32 AM EDT documented in this encounter Functional Status * BP Answer Date of Assessment Author 121/79 08/16/2025 10:32 AM EDT Ruby Barney am, MA * Pulse Answer Date of Assessment Author 96 08/16/2025 10:32 AM EDT Ruby Barney am, MA * Patient Position Answer Date of Assessment Author Sitting 08/16/2025 10:32 AM EDT Ruby Barney am, MA * BP Answer Date of Assessment Author 121/79 08/16/2025 10:32 AM EDT Ruby Barney am, MA * Pulse Answer Date of Assessment Author 96 08/16/2025 10:32 AM EDT Ruby Barney am, MA * SpO2 Answer Date of Assessment Author 97 08/16/2025 10:32 AM EDT Ruby Barney am, MA * BP Location Answer Date of Assessment Author Right arm 08/16/2025 10:32 AM EDT Ruby Barney am, [place] * Patient Position Answer Date of Assessment Author Sitting 08/16/2025 10:32 AM EDT Ruby Barney am, [place] documented as of this encounter Progress Notes * Abel Castaneda MD - 08/16/2025 10:15 AM EDT Images from the original note were not included. [place] Electrophysiology Consult Note Reason for visit: Afib 08/16/2025 Patient is here today for a 6 month follow up. Patient denies chest pain, dizziness/lightheaded, fatigue, leg swelling, racing heart/palpitations. Patient does complain of SOB/BEVERLY but states its mostly due to his emphysema. LOOP/Device check shows no further episodes of atrial fibrillation except for 1 episode of nonsustained VT as noted below on 07/22/2024 Review of Systems Cardiovascular: Positive for dyspnea on exertion. Respiratory: Positive for shortness of breath. 06/22/24 patient underwent flutter ablation 01/21/2024 and subsequently underwent loop monitor placement on 03/17/2024. Loop has not revealed any concerning events for atrial fibrillation. HPI: Alejandro Maradiaga is a 70 y.o. year old with past medical history [...] on Eliquis. Goes to cardiac rehab at [facility] a few times a week. Had BMP/MG drawn yesterday. C/o fatigue and weakness. Urinating a lot during the night. PMH: Past Medical History: Diagnosis Date Abnormal ECG Arrhythmia Atrial fibrillation (CMS/HCC) CHF (congestive heart failure) (CMS/HCC) COPD (chronic obstructive pulmonary disease) (CMS/HCC) Hyperlipidemia Hypertension PSH: Past Surgical History: Procedure Laterality Date ANKLE SURGERY CARDIAC CATHETERIZATION CARDIOVERSION NECK SURGERY SH: Social Drivers of Health Tobacco Use: High Risk (08/16/2025) Patient History Smoking Tobacco Use: Every Day [...] Intimate Partner Violence: Not At Risk (10/15/2023) [place] Safety & Environment Fear of Current or Ex-Partner: No Emotionally Abused: Not on file Physically Abused: Not on file Sexually Abused: Not on file Physically or Sexually Abused: Unrecognized value Depression: Not on file Housing Stability: Low Risk (10/15/2023) Housing Stability Vital Sign Unable to Pay for Housing in the Last Year: Not on file Number of Places Lived in the Last Year: Not on file Unstable Housing in the Last Year: No Utilities: Not on file Health Literacy: Not on file Allergies: Allergies Allergen Reactions Adenosine Anaphylaxis Latex Shortness of breath Weight: 78.5kg Visit Vitals Ht 1.803 m (5' 11 ) Wt 78.5 kg (173 lb) BMI 24.13 kg/m?? Smoking Status Every Day BSA 1.98 m?? Meds: Current Outpatient Medications on File Prior to Visit Medication Sig Dispense Refill albuterol 90 mcg/actuation inhaler Inhale 1 puff in the morning. zmxzlusmopz-ajbgagwdx-invtbaqf (Trelegy Ellipta) 100-62.5-25 mcg blister with device Inhale. ipratropium-albuteroL (Duo-Neb) 0.5-2.5 mg/3 mL nebulizer solution Take 3 mL by nebulization in themorning and at bedtime. 2.5mg base lisinopril 5 mg tablet Take 1 tablet (5 mg) by mouth once daily as directed. 90 tablet 3 montelukast (Singulair) 10 mg tablet Take 10 mg by mouth at bedtime. apixaban (Eliquis) 5 mg tablet Take 1 tablet (5 mg) by mouth in the morning and at bedtime. (Patient not taking: Reported on 08/16/2025) 180 tablet 3 atorvastatin (Lipitor) 10 mg tablet Take 1 tablet (10 mg) by mouth at bedtime. (Patient not taking:Reported on 08/16/2025) 90 tablet 3 dapagliflozin propanediol (Farxiga) 10 mg Take 1 tablet (10 mg) by mouth in the morning. (Patient not taking: Reported on 08/16/2025) 90 tablet 3 lisinopril 5 mg tablet Take 1 tablet (5 mg) by mouth in the morning. (Patient not taking: Reported on 08/16/2025) 90 tablet 3 metoprolol succinate XL (Toprol-XL) 25 mg 24 hr tablet Take 1 tablet (25 mg) by mouth in the morning. Do not crush or chew. (Patient not taking: Reported on 08/16/2025) 90 tablet 3 nicotine (Nicoderm CQ) 14 mg/[address] 1 patch on the skin 1 (one) time each day at the same time. Apply 14mg patch daily x6 weeks then 7mg patch daily x 2 weeks; remove old patch before applying new patch; can repeat if needed (Patient not taking: Reported on 08/16/2025) 45 patch 3 No current facility-administered medications on [...] Neck Neck: supple, trachea midline Carotid Arteries: bilateral normal upstroke, no bruits Jugular Veins: normal jugular venous pressure Thyroid: not enlarged Lungs Respiratory Effort: unlabored Chest Exam: normal curvature, no thoracic deformity Auscultation: clear, no wheezing, no rales, no rhonchi Cardiovascular Rate And Rhythm: regular Heart Sounds: normal S1, normal s2, no gallop Systolic Murmur: not heard Diastolic Murmur: not heard Extremities: no cyanosis, no edema, no peripheral signs of emboli Peripheral Pulses Radial Pulse: normal Abdomen Inspection and Palpation: soft, non distended, no bruit, non tender Musculoskeletal Inspection: no joint swelling Neurologic Gait: normal gait Skin Inspection and Palpation: warm and dry Nails: no clubbing Labs: @LABRESULTS@ Lab Results Component Value Date HDL 20 (L) 10/16/2023 LDL CALC 70 10/16/2023 TRIGLYCERIDES 72 10/16/2023 TSH 3.20 10/15/2023 BNP 969 (H) 10/15/2023 EKG: Encounter Date: 01/21/24 ECG 12 lead Result Value Ventricular Rate 78 Atrial Rate 78 TN Interval 224 QRS DURATION 150 QT Interval 424 QTC CALCULATION(BAZETT) 483 P Worley 81 R-Worley -70 T Wave Worley 70 Impression Sinus rhythm with 1st degree A-V block Right bundle branch block Left anterior fascicular block Inferior infarct , age undetermined Anteroseptal infarct , age undetermined Abnormal ECG When compared with ECG of 18-OCT-2023 10:56, Sinus rhythm has replaced Electronic ventricular pacemaker Confirmed by Abel Castaneda ([id number]) on 01/21/2024 8:01:50 PM Echo: 12/19/2023 10/16/23 Stress test: Coronary angiogram: 10/17/23 Hemodynamic Data: RA: 3 mmHg RV: 33/5 mmHg PA: 28/12 (18) mmHg Could not obtain wedge pressure due to latex free swan balloon rupture, however PA diastolic is normal so wedge is likely normal CO: 3.9 L/min CI: 2.0 L/min/m2 O2 Sat: PA sat: 63% AO sat: 94% Coronary Angiogram: Left main: normal LAD: 20% calcified stenosis at proximal segment LCX: normal RCA: normal, dominant EP study 01/21/2024 AHms 141 HVms 59 VERPms 600/280 AV Wenkebach ms 400 AH jump ms NA AVNERP ms 600/320 AERP ms 600/230 POST PROCEDURE DIAGNOSIS 1. Symptomatic atrial flutter s/p CTI ablation. 2. EP study revealing no retrograde accessory conduction. 3. 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 Assessment and Plan: - Atrial flutter s/p CTI ablation and being monitored with LOOP for AF. Patient has no further episodes of atrial fibrillation and he has been off anticoagulation, Ct to monitor him via LOOP. - Dilated CMP: Repeat echocardiogram reveals that EF has normalized. Will stop Farxiga and keep a blood pressure log Abel Castaneda MD Cardiac Electrophysiology [facility] documented in this encounter Plan of Treatment Not on file documented as of this encounter Visit Diagnoses Diagnosis S/P ablation of atrial flutter- Primary Other postprocedural status documented in this encounter Care Teams Cobbler Upper Relationship Specialty Start Date End Date Shanell Craig MD [address] [facility] #A PCP - General 10/16/23 documented as of this encounter
--- OUTSIDE RECORDS SUMMARY | 2025-08-17 11:14 | XMS_ITS | CCD ---
Author Organization [facility] Care Team Providers Care Leadership Development Consultant Name Role Phone Elle Cortes MD Primary Care Provider [phone] NOBLET JENNI, JENNI Attending Unavailable MARCELLA CORTESEL Referring [...] FOSSELMAN, ELLE D Primary Care Unavailable TIANA BROWN~[id number], TIANA BROWN Attending Unavailable JOSHUA, NEELAY S Referring Unavailable FOSSELMAN, ELLE D Primary Care Unavailable STORM VALDES Attending Unavailabl e JOSHUA, NEELAY S Referring Unavailable FOSSELMAN, ELLE D Primary Care Unavailable STORM VALDES Attending Unavailabl e JOSHUA, NEELAY S Referring Unavailable FOSSELMAN, ELLE D Primary Care Unavailable TIANA BROWN~[id number], TIANA BROWN Attending Unavailable JOSHUA, NEELAY S Referring Unavailable FOSSELMAN, ELLE D Primary Care Unavailable AVA GODFREY Attending Unavailable ELLE CORTES Primary Care Unavailable Shanell Craig Unavailable Irma Ontiveros Unavailable Tima Osorio Unavailable ELLE CORTES Attending Unavailable ELLE CORTES Attending Unavailable ELLE CORTES Attending Unavailable ELLE CORTES Attending Unavailable ELLE CORTES Attending Unavailable ELLE CORTES Attending Unavailable MD Irma Ontiveros Attending Provider MD Shanell Craig Primary Care Provider MD Irma Ontiveros Attending Provider [phone] MD Shanell Craig Primary Care Provider Shanell Craig MD Primary Care Provider [phone] Tima Osorio MD Attending Provider Tima Osorio Attending Unavaila ble Tima Osorio Admitting Unavaila Shanell Singh Primary Care Unavailable REGINALD, LUIS Referring Unavailable REGINALD, LUIS Referring Unavailable REGINALD, LUIS Referring Unavailable REGINALD, LUIS Referring Unavailable REGINALD, LUIS Referring Unavailable REGINALD, LUIS Referring Unavailable LEEROYMANOJ Attending Unavailable REGINALD, LUIS Attending Unavailable REGINALD, LUIS Referring Unavailable IDRISRUTH Referring Unavailable REGINALD, LUIS Referring Unavailable Shanell Craig MD Primary Care Provider Tima Osorio MD Attending Provider [phone] Allergies Allergy Classification Reported Allergen(s) Allergy Type Date of Onset Reaction(s) Facility (20 sources) Adenosine; Translations: [ADENOSINE] Drug Allergy 1 Shortness of breath, anaphylaxis [facility] (20 sources) Latex; Translations: [LATEX] Drug Allergy 1 Shortness of breath [facility] (11 sources) Ibuprofen; Translations: [IBUPROFEN] Drug Allergy 1 Shortness of breath [facility] (11 sources) valsartan; Translations: [VALSARTAN] Drug Allergy 1 [facility] (1 source) ALLERGIES NOT ON FILE; Translations: [ALLERGIES NOT ON FILE] Propensity to adverse reactions (disorder) [facility] Repository (1 source) Adenosine Drug Allergy [address] [place] [address] Repository (1 source) Latex Drug allergy (disorder) [address] [place] [address] Repository Medications Current Medications Medication Drug Class(es) [...] hr tablet Take by mouth. 0 Active [id number] 200 actuat albuterol 0.09 mg/actuat metered dose inhaler (20 sources) beta2-Adrenergic Agonist Start: 01-06-2024 End: 06-09-2025 Albuterol Sulfate 90 mcg/actuation HFA aerosol inhaler Active 2 INH INHALATION Every 4 hours as needed for shortness of breath or wheezing 3 90 June 09, 2025 11:41am Complies with drug therapy Start: 01-06-2024 End: 01-06-2024 take 1 puff(s) by inhalation every four hours Albuterol Sulfate 90 mcg/actuation HFA aerosol inhaler Discontinued 1 PUFF INHALATION Every 4 hours January 06, 2024 1:00am January 06, 2024 3:49pm Start: 11-14-2022 take 2 puff(s) by in halation twice daily albuterol HFA (PROAIR HFA ; PROVENTIL HFA ; VENTOLIN HFA) 90 mcg/actuation inhaler Indications: Chronic obstructive pulmonary disease, unspecified COPD type ([facility]) Inhale 2 puffs 2 (two) [...] (20 sources) Anticholinergic, beta2-Adrenergic Agonist Start: 01-06-2024 End: 11-19-2024 take 1 mL by inhalation every six hours Ipratropium-Albuterol 0.5 mg-3 mg(2.5 mg base)/3 mL solution for nebulization Active 3 ML INHALATION Every 6 hours 180 November 19, 2024 9:55am DX J44.9 COPD Complies with drug therapy Start: 04-18-2022 End: 11-14-2022 ipratropium-albuteroL (DUONE B) [...] DAYS 20 tablet 0 07/12/2021 07/12/2022 Active cetirizine hydrochloride 10 mg oral tablet (20 sources) Histamine-1 Receptor Antagonist Start: 01-06-2024 End: 02-10-2024 take 1 tablet by mouth once daily as needed Cetirizine (Zyrtec) 10 mg tablet Active 10 MG PO Daily as needed February 10, 2024 3:41pm Complies with drug therapy take 1 tablet by kimberly th every twenty-four hours ZyrTEC Allergy 10 MG 1 tablet Orally Once a day Active ZyrTEC Allergy A ctive dexamethasone 1 mg/ml / tobramycin 3 mg/ml ophthalmic suspension (20 sources) Aminoglycoside Antibacterial, Corticosteroid Start: 12-21-2024 End: 12-21-2024 take 1 drop(s) into the eye(s) four times daily Tobramycin-Dexamethasone 0.3-0.1 % drops,suspension Active 1 DROPS EYE-BOTH Four times daily 2.5 December 21, 2024 5:21pm Complies with drug therapy Start: 12-21-2024 End: 12-21-2024 take 1 drop(s) into the eye(s) four times daily Tobramycin-Dexamethasone 0.3-0.1 % drops,suspension Discontinued 1 DROPS EYE-BOTH Four times daily December 21, 2024 12:00am December 21, 2024 4:21pm Start: 01-06-2024 End: 02-10-2024 take 1 drop(s) into the eye(s) every six hours Tobramycin-Dexamethasone 0.3-0.1 % drops,suspension Discontinued 1 DROPS OPHTHALMIC Every 6 hours [...] every 6 hrs for 7 days Active Fish Oils (7 sources) take 1 capsule by mouth once daily Fish Oil 1000 MG 1 capsule Orally Once a day Active Vzanpokkwkh-Opffshezp-U ilanter (11 sources) Start: 11-19-2024 Ulgxlxebzmh-Ejjgnuedf-Qd lanter (Trelegy Ellipta) 200-62.5-25 mcg blister with device Active 1 INH INHALATION Daily November 19, 2024 9:55am Complies with drug therapy Start: 11-19-2024 Fluticasone-Um eclidin-Vilanter (Trelegy Ellipta) 200-62.5-25 mcg blister with device Active 1 INH INHALATION Daily November 19, 2024 8:55am Start: 01-06-2024 End: 11-19-2024 Gwdkhbclrom-Woaziaxas-Orhyqi er (Trelegy Ellipta) 200-62.5-25 mcg blister with device Discontinued 1 INH INHALATION Daily January 06, 2024 1:00am November 19, 2024 9:57am Start: 01-06-2024 End: 11-19-2024 Ntcirxmujec-Laovkvmpz-Yqrczp er (Trelegy Ellipta) 200-62.5-25 mcg blister with device Discontinued 1 INH INHALATION Daily January 06, 2024 12:00am November 19, 2024 8:57am Start: 01-06-2024 Fluticasone-Um eclidin-Vilanter (Trelegy Ellipta) 200-62.5-25 mcg blister with device Active 1 INH INHALATION Daily January 06, 2024 1:00am kkrfxwfldzf-kdkiiipytwvu-gzs anterol (Trelegy Ellipta) 200-62.5-25 mcg inhaler (20 sources) Start: 11-15-2022 take 1 puff(s) by mouth once daily hqwytvnlxyh-asgrvjwdwhvp-hhqdskhbxb (Trelegy Ellipta) 200-62.5-25 mcg inhaler Inhale 1 puff (200 mcg total) by mouth 1 (one) time each day. 60 each 4 11/15/2022 Active Start: 10-10-2022 take 1 puff(s) by mouth once daily oezelwgsmri-rynefbapqzed-osodxtsmuu (Raphael legy Ellipta) 200-62.5-25 mcg inhaler Inhale 1 puff by mouth once daily 60 each 4 10/10/2022 Active Start: 05-30-2022 take 1 puff(s) by mouth once daily ptyskjvxgfi-zwcnzzrfpqfc-lmbwljtyxg (Raphael legy Ellipta) 200-62.5-25 mcg inhaler Inhale 1 puff by mouth daily 60 each 4 05/30/2022 Active Start: 04-18-2022 take 1 puff(s) by mouth once daily grkdgkupomg-ozhpdyjfmfhp-mtxkimuwyg (Raphael legy Ellipta) 200-62.5-25 mcg inhaler Inhale 1 puff by mouth daily 60 each 4 04/18/2022 Active Start: 12-27-2021 End: 11-15-2022 take 1 puff(s) by mouth once daily ygoxcqucxsm-bfkzkyxvmjgl-opjbnhyhbc (Raphael legy Ellipta) 200-62.5-25 mcg inhaler Inhale 1 puff (200 mcg total) by mouth 1 (one) time each day. 60 each 4 12/27/2021 11/15/2022 Discontinued (Reorder) Start: 12-27-2021 take 1 puff(s) by mouth once daily jachajrymoj-hxumldrqbnpj-lbyzpinwuq (Raphael legy Ellipta) 200-62.5-25 mcg inhaler Inhale 1 puff (200 mcg total) by mouth 1 (one) time each day. 60 each 4 12/27/2021 Active Start: 12-27-2021 take 1 puff(s) by inhalation once daily gsxkzsgozti-xinnjxlvccgb-opfdtcrkho (Raphael legy Ellipta) 200-62.5-25 mcg inhaler Inhale 1 puff (200 mcg total) 1 (one) time each day. 60 each 4 12/27/2021 Active ibuprofen 200 mg oral tablet (6 sources) Nonsteroidal Anti-inflammatory Drug ibuprofen (ADVIL,MOTRIN) 200 mg tablet Take by mouth. 0 Active Ipratropium (3 sources) Anticholinergic Ipratropium Brom rosendo Active lisinopril 5 mg oral tablet (2 sources) Angiotensin Converting Enzyme Inhibitor Start : 01-06 take 1 tablet by mouth once daily Lisinopril 5 mg tablet Active 5 MG PO Daily January 06, 2025 1:00am Complies with drug therapy methylPREDNISolone (10 sources) Corticosteroid Start : 04-10 methylPREDNISolone (MEDROL DOSPAK) 4 mg tablet Take as directed on packaging instructions. 21 each 0 04/10/2022 Active Start: 01-15-2022 methylPREDNISo lone (MEDROL DOSPAK) 4 mg tablet take as directed on packaging instructions. 21 tablet 0 01/15/2022 Active montelukast 10 mg oral tablet (20 sources) Leukotriene Receptor Antagonist Start: 02-27-2024 End: 05-26-2024 take 1 tablet by mouth once daily in the evening Montelukast 10 mg tablet Active 0 .ROUTE .COMPLEX 90 May 26, 2024 2:18pm TAKE 1 TABLET BY MOUTH EVERY EVENING Complies with drug therapy Start: 01-06-2024 End: 02-27-2024 take 1 tablet by mouth once daily Montelukast 10 mg tablet Discontinued 10 MG PO Daily January 06, 2024 1:00am February 27, 2024 1:37pm Start: 01-22-2022 take 1 tablet by kimberly th once daily montelukast (SINGULAIR) 10 mg tablet Take 1 tablet (10 mg total) by mouth 1 (one) time each day. 90 tablet 3 10/10/2022 Active Multi For Him - (7 sources) Multi For Him - as directed Orally Active Multivitamin (Daily Multi-Vitamin) tablet (7 sources) Start: 01-06-2024 take 1 tablet by mouth once daily Multivitamin (Daily Multi-Vitamin) tablet Active 1 TAB PO Daily January 06, 2024 1:00am Complies with drug therapy Start: 01-06-2024 take 1 tablet by kimberly th once daily Multivitamin (Daily Multi-Vitamin) tablet Active 1 TAB PO Daily January 06, 2024 12:00am Start: 01-06-2024 take 1 tablet by kimberly th once daily Multivitamin (Daily Multi-Vitamin) tablet Active 1 TAB PO Daily January 06, 2024 1:00am multivitamin capsule (6 sources) Start: 06-08-2007 multivitamin c apsule 1 (one) time each day at the same time. 0 06/08/2007 Active Tobramycin-Dexamethason e 0.3-0.1 % drops,suspension (3 sources) Start: 12-21-2024 take 1 drop(s) into the eye(s) four times daily Tobramycin-Dexamethaso ne 0.3-0.1 % drops,suspension Active 1 DROPS EYE-BOTH Four times daily 2.5 December 21, 2024 4:21pm Trelegy Ellipta (3 sources) Trelegy Ellipta Active [...] Drug Class(es) Dates Sig (Normalized) Sig (Original) apixaban 5 mg oral tablet (12 sources) Factor Xa Inhibitor Start: 01-06-2024 End: 10-22-2024 take 1 tablet by mouth twice daily Apixaban 5 mg tablet Discontinued 5 MG PO Twice daily January 06, 2024 1:00am October 22, 2024 12:19pm Apixaban 5 MG 1 tab;et twice a day Active aspirin 81 mg delayed release oral tablet (12 sources) Platelet Aggregation Inhibitor, Nonsteroidal Anti-inflammatory Drug Start: 01-06-2024 End: 02-10-2024 take 1 tablet by mouth once daily Aspirin 81 mg tablet,delayed release (DR/EC) Discontinued 81 MG PO Daily January 06, 2024 1:00am February 10, 2024 3:41pm Aspir-Low 81 MG 1 tablet once a day Active atorvastatin 10 mg oral tablet (20 sources) HMG-CoA Reductase Inhibitor Start: 01-06-2024 End: 10-22-2024 take 1 tablet by mouth once daily Atorvastatin 10 mg tablet Discontinued 10 MG PO Daily January 06, 2024 1:00am October 22, 2024 12:19pm Start: 10-31-2021 take 1 tablet by kimberly th once daily atorvastatin (LIPITOR) 10 mg tablet Take 1 tablet (10 mg total) by mouth 1 (one) time each day. 30 tablet 5 10/07/2022 Active azithromycin 250 mg oral tablet (11 sources) Macrolide Antimicrobial Start: 10-22-2024 End: 12-29-2024 Azithromycin 250 mg tablet Discontinued 0 PO .COMPLEX 6 October 22, 2024 1:00am December 29, 2024 11:17am For 250 mg dose pack: take 500 mg today (day 1), then 250 mg for 4 days (days 2-5) PO Start: 11-14-2022 azithromycin ( Zithromax Z-Piyush) 250 mg tablet Indications: Chronic obstructive [...] DAYS 6 tablet 0 07/12/2021 07/12/2022 Active budesonide 0.25 mg/ml inhalation suspension (15 sources) Corticosteroid Start: 12-28-2020 End: 11-14-2022 take 2 mL by inhalation twice daily budesonide (PULMICORT) 0.5 mg/2 mL nebulizer solution Inhale 2 mL (0.5 mg total) by nebulization 2 (two) times a day. 360 mL 0 08/23/2021 11/14/2022 Discontinued cefdinir 300 mg oral capsule (8 sources) Cephalosporin Antibacterial Start: 10-22-2024 End: 10-22-2024 take 1 capsule by mouth twice daily Cefdinir 300 mg capsule Discontinued 300 MG PO Twice daily October 22, 2024 12:30pm October 22, 2024 12:38pm Start: 10-21-2024 End: 10-22-2024 take 2 capsules by mouth once daily Cefdinir 300 mg capsule Discontinued 600 MG PO Daily October 21, 2024 1:00am October 22, 2024 12:34pm cyclobenzaprine hydrochloride 5 mg oral tablet (9 sources) Muscle Relaxant Start: 01-15-2022 End: 11-14-2022 take 1-2 tablets by mouth once daily at bedtime cyclobenzaprine (FLEXERIL) 5 mg tablet Take 1 to 2 tablet(s) by mouth once a day at bedtime for 10 days 20 tablet 0 10/07/2022 11/14/2022 Discontinued dapagliflozin 10 mg oral tablet (12 sources) Sodium-Glucose Cotransporter 2 Inhibitor Start: 01-06-2024 End: 10-22-2024 take 1 tablet by mouth once daily Dapagliflozin Propanediol 10 mg tablet Discontinued 10 MG PO Daily January 06, 2024 1:00am October 22, 2024 12:19pm Dapagliflozin Pr opanediol 10 MG 1 tablet once a day Active docosahexaenoic acid 120 mg / eicosapentaenoic acid 180 mg oral capsule (1 source) End: 11-14-2022 docosahexaenoic acid-epa 120-180 mg capsule esomeprazole 40 mg delayed release oral capsule (20 sources) Proton Pump Inhibitor Start: 01-06-2024 End: 02-10-2024 take 1 capsule by mouth once daily Esomeprazole Magnesium 40 mg capsule,delayed release(DR/EC) Discontinued 40 MG PO Daily January 06, [...] propionate 0.05 mg/actuat metered dose nasal spray (17 sources) Corticosteroid Start: 01-06-2024 End: 02-10-2024 Fluticasone Propionate 50 mcg/actuation spray,suspension Discontinued 1 SPRAY INTRANASAL Daily January 06, 2024 1:00am February 10, 2024 3:42pm take 1 spray(s) nasal route once daily Fluticasone Propionate 50 MCG/ACT 1 spray in each nostril Nasally Once a day Active take 1 spray(s) nasal route once daily Fluticasone Propionate 50 MCG/ACT 1 spray in each nostril Nasally Once a day Active Fluticasone Furo ate Active 24 hr metoprolol succinate 25 mg extended release oral tablet (12 sources) beta-Adrenergic Lauren Start: 01-06-2024 End: 10-22-2024 take 1 tablet by mouth once daily Metoprolol Succinate 25 mg tablet extended release 24 hr Discontinued 25 MG PO Daily January 06, 2024 1:00am October 22, 2024 12:20pm take 1 tablet by kimberly th every twenty-four hours Metoprolol Succinate ER 25 MG 1 tablet once a day Active [place] 4-Swy-Sjg-Fish Oil (Fish Oil) 1,000 mg (120 mg-180 mg) capsule (7 sources) Start: 01-06-2024 End: 02-10-2024 take 1 capsule by mouth once daily [place] 3-Yrj-Qkj-Fish Oil (Fish Oil) 1,000 mg (120 mg-180 mg) capsule Discontinued 1 CAP PO Daily January 06, 2024 12:00am February 10, 2024 2:42pm Start: 01-06-2024 End: 02-10-2024 take 1 capsule by mouth once daily [place] 2-Ahq-Hoy-Fish Oil (Fish Oil) 1,000 mg (120 mg-180 mg) capsule Discontinued 1 CAP PO Daily January 06, 2024 1:00am February 10, 2024 3:42pm predniSONE 20 mg oral tablet (20 sources) Start: 10-22-2024 End: 12-29-2024 take 1 tablet by mouth twice daily Prednisone 20 mg tablet Discontinued 20 MG PO Twice daily October 22, 2024 1:00am December 29, 2024 11:17am Start: 10-21-2024 End: 10-22-2024 take 3 tablets by mouth once daily Prednisone 20 mg tablet Discontinued 60 MG PO Daily October 21, 2024 1:00am October 22, 2024 12:20pm Start: 06-20-2023 predniSONE 10 MG 4 tabs [...] DAYS 10 tablet 0 07/12/2021 07/12/2022 Active roflumilast 0.25 mg oral tablet (12 sources) Phosphodiesterase 4 Inhibitor Start: 02-10-2024 End: [...] tablet Discontinued 250 MCG PO Daily February 09, 2024 11:00pm May 18, 2024 1:44pm Start: 02-10-2024 End: 05-18-2024 take 1 tablet by mouth once daily Roflumilast (Daliresp) 500 mcg tablet Discontinued 500 MCG PO Daily February 09, 2024 11:00pm May 18, 2024 1:44pm Start: 02-10-2024 End: 05-18-2024 take 1 tablet [...] 2024 12:00am spironolactone 25 mg oral tablet (12 sources) Aldosterone Antagonist Start: 01-06-2024 End: 02-23-2024 take 1 tablet by mouth once daily Spironolactone 25 mg tablet Discontinued 25 MG PO Daily January 06, 2024 1:00am February 23, 2024 10:45am take 1 tablet by kimberly th every twenty-four hours Spironolactone 25 MG 1 tablet once a day Active traMADol hydrochloride 50 mg oral tablet (20 sources) Opioid Agonist Start: 01-06-2024 End: 02-10-2024 take 1 tablet by mouth once daily Tramadol 50 mg tablet Discontinued 50 MG PO Daily January 06, [...] Atrial flutter; Translations: [Unspecified atrial flutter] Onset: 02-20-2024 Chronic Chronic obstructive pulmonary disease and bronchiectasis (20 sources) Chronic obstructive lung disease; Translations: [Chronic obstructive pulmonary disease, unspecified] Onset: 03-03-2023 Chronic Congestive heart failure; nonhypertensive (14 sources) Chronic systolic heart failure; Translations: [Chronic systolic (congestive) heart failure] Onset: 06-22-2024 Chronic Diabetes mellitus without complication (5 sources) Increased glucose level; Translations: [Other abnormal glucose] 12-29-2024 Episodic Hypertension with complications and secondary hypertension (2 sources) Hypertensive heart disease with heart failure; Translations: [Hypertensive heart disease with heart failure] Onset: 12-31-2024 Chronic Inflammation; infection of eye (except that [...] [Pain in left shoulder] Onset: 02-06-2022 Episodic Other screening for suspected conditions (not mental disorders or infectious disease) (8 sources) Patient encounter status; Translations: [Encounter for screening for malignant neoplasm of prostate] Onset: 12-28-2024 10-22-2024 Episodic Septicemia (except in labor) (1 source) Sepsis due to Escherichia coli [E. coli] Episodic Spondylosis; intervertebral disc disorders; other back problems (8 sources) Cervical spondylosis without myelopathy; Translations: [Spondylosis without myelopathy or radiculopathy, cervical region] Onset: 10-30-2022 Chronic Spondylosis; intervertebral disc disorders; other back problems (18 sources) Neck pain; Translations: [Cervicalgia] Onset: 02-06-2022 Episodic Substance-related disorders (14 sources) Nicotine dependence; Translations: [Nicotine dependence, unspecified, uncomplicated] Onset: 11-18-2022 Chronic Urinary tract infections (7 sources) Urinary tract infectious disease; Translations: [Urinary tract infection, site not specified] 10-25-2024 Episodic Past or Other Problems Problem Classification Problem Date Documented Date Episodic/Chronic Cardiac dysrhythmias (2 sources) Palpitations; Translations: [Palpitations] Onset: 02-01-2025 Episodic Other circulatory disease (2 sources) Personal history of other diseases of the circulatory system; Translations: [Personal history of other diseases of the circulatory system] Onset: 02-20-2024 Episodic Residual codes; unclassified (2 sources) Other specified postprocedural states; Translations: [Other specified postprocedural states] Onset: 02-20-2024 Episodic Results Test Name Value Interpretation Reference Range Facility Orders Onlyon 03-31-2025 Orders Only [id number] Alejandro Maradiaga Edwardo 1955 [facility] Provider Department Center 03/31/2025 LUIS TORRES [facility] Family History Problem Relation Age of Onset Stroke Mother Family Status - Relation Status Age at Mother Normal [facility] Office Visiton 12-31-2024 Follow-up visit [id number] Alejandro Maradiaga Edwardo 1955 M Date Provider Department Center 12/31/2024 [id number], [facility] Family History Problem Relation Age of Onset Stroke Mother Family Status - Relation Status Age at Mother Level of Service:67760 IN OFFICE/OUTPATIENT ESTABLISHED MOD MDM 30 MIN Normal [facility] CT lung screeningon 12-28-19 CT lung screening [facility] [address] CT Scan Report Signed Patient: Alejandro Maradiaga MR#: [id number] 530 : 1955 Acct:[id number] Age/Sex: 69 / M ADM Date: 12/28/24 Loc: [facility] Room: Type: [facility] Attending Dr: Tima Osorio MD Copies to: Tima Osorio MD Ordering Provider: Tima Osorio MD Date of Service: 12/28/24 CT/CT lung screening: F17.200 - Nicotine dependence, unspecified, uncomplicated CT Chest lung screening without contrast TECHNIQUE: Axial imaging with 2-D reconstruction. The CT exam was performed using one or more the following dose reduction techniques: Automated exposure control, adjustment of the MA and/or Kv according to patient size, or use of the iterative reconstruction technique. History: Annual low-dose screening. Current smoker. COMPARISON: 11/27/2023 THYROID: Unremarkable TRACHEA AND BRONCHI: Diffuse bronchial wall thickening. ESOPHAGUS: Unremarkable. HEART: Within normal limits PERICARDIAL EFFUSION: None CORONARY ARTERY CALCIFICATION: None MEDIASTINUM: No adenopathy. No pneumoperitoneum. No mediastinal hematoma. PULMONARY TRACIE: No hilar mass or adenopathy is seen. THORACIC AORTA Unremarkable LUNG NODULE stable 14 mm noncalcified pulmonary nodule in the right lower lobe in paraspinal region. Best seen with image #132. LUNGS: Emphysema and associated scarring redemonstrated PLEURAL EFFUSION: None PNEUMOTHORAX: No pneumothorax seen. CHEST WALL: No abnormality AXILLA:Unremarkable BONY STRUCTURES Intact UPPER ABDOMEN: Images of the upper abdomen are noncontributory. CT/CT lung screening IMPRESSION: Stable 14 mm right lower lobe lung nodule. Emphysema with associated scarring. No enlarging or new nodule. FINAL ASSESSMENT: Probably benign. May recommend further assessment with PET/CT imaging. Additionally Short-term 6 month observation could be obtained. Lung-RADS Version 1.0 Assessment Category: 3 REMARKS: Continued annual screening with LDCT in 6 months is recommended. Impression dictated by: Michael Seth M.D.12/28/2024 2:46 PM Dictation Location: [place] [address] Transcribed By: [facility] 12/28/24 1446 Dictated By: Michael Seth DO 12/28/24 1435 Signed By: 12/28/24 1446 Normal [facility] Laboratory - Chemistry and C hemistry - challengeon 10-29-2024 Bilirubin Ql (U) SMALL Abnormal NEGATIVE [facility] Glucose (U) [Mass/Vol] Negative NEGATIVE [facility] Ketones Ql (U) TRACE mg/dL Abnormal NEGATIVE [facility] pH (U) 6.0 [pH] 5.0-9.0 [facility] Specific gravity (U) [Rel density] >=1.030 Abnormal 1.005-1.025 [facility] Urobilinogen Qn (U) 1.0 {Maxine'U}/dL 0.2-1.0 [facility] Laboratory - Specimen inform ationon 10-29-2024 Appearance (U) CLEAR CLEAR [facility] Color (U) DK. YELLOW YELLOW [facility] Laboratory - Urinalysison Leukocyte esterase Test strip Ql (U) Negative NEGATIVE [facility] Nitrite Ql (U) Negative NEGATIVE [facility] Protein Ql (U) TRACE mg/dL NEG/TRACE [facility] No Panel Informationon 10-29 Prostate Specific Antigen Screen 0.70 ng/mL <=4.00 [facility] Urine Microscopic Review NO [facility] Urine Occult Blood Negative NEGATIVE [facility] Basophils Auto (Bld) [#/Vol] on 10-18-2024 Basophils (Bld) [#/Vol] Automated basophil count 0.0-0.1 [facility] Basophils/100 WBC Auto (Bld) on 10-18-2024 Basophils/100 WBC (Bld) Automated basophil % 0.2-2.0 [facility] Eosinophils/100 WBC Auto (Bl d)on 10-18-2024 Eosinophils/100 WBC (Bld) Automated eosinophil % Low 0.9-7.0 [facility] Erythrocyte distribution wid th Auto (RBC) [Ratio]on 10-18-2024 Erythrocyte distribution width (RBC) [Ratio] Erythrocyte distribution width [Ratio] by Automated count 11.0-15.0 [facility] Estimated glomerular filtrat ion rate (GFR) non- Americanon 10-18-2024 GFR/1.73 sq M.predicted among non-blacks MDRD (S/P/Bld) [Vol rate/Area] Estimated glomerular filtration rate (GFR) non- >=60 mL/min/1.73m 2 [facility] Hematocrit Auto (Bld) [Volum e fraction]on 10-18-2024 Hematocrit (Bld) [Volume fraction] Hematocrit [Volume Fraction] of Blood by Automated count Low 42.0-54.0 [facility] Hemoglobin [Mass/volume] in Bloodon 10-18-2024 Hemoglobin (Bld) [Mass/Vol] Hemoglobin [Mass/volume] in Blood 14.0-18.0 [facility] Laboratory - Chemistry and C hemistry - challengeon 10-18-2024 Calcium [Mass/Vol] 9.1 mg/dL 8.5-10.1 [facility] Chloride [Moles/Vol] 103 mmol/L 98-107 [facility] CO2 [Moles/Vol] 26.3 mmol/L 21.0-32.0 [facility] Creatinine [Mass/Vol] 0.87 mg/dL 0.70-1.30 [facility] GFR/1.73 sq M.predicted MDRD (S/P/Bld) [Vol rate/Area] mL/min/{1.73_m2} >=60 mL/min/1.73m 2 [facility] Glucose [Mass/Vol] 202 mg/dL High 74-106 [facility] Potassium [Moles/Vol] 4.3 mmol/L 3.5-5.1 [facility] Sodium [Moles/Vol] 138 mmol/L 136-145 [facility] Urea nitrogen [Mass/Vol] 14.0 mg/dL 7.0-18.0 [facility] Urea nitrogen/Creatinine [Mass ratio] 16.1 mg/mg [facility] Laboratory - Hematology and Cell countson 10-18-2024 Immature granulocytes/100 WBC (Bld) 1.1 % High 0.0-0.5 [facility] Leukocytes [#/volume] correc conchis for nucleated erythrocytes in Blood by Automated counon 10-18-2024 WBC corrected for nucl RBC Auto (Bld) [#/Vol] Leukocytes [#/volume] corrected for nucleated erythrocytes in Blood by Automated coun 4.0-11.0 [facility] Lymphocytes Auto (Bld) [#/Vo l]on 10-18-2024 Lymphocytes (Bld) [#/Vol] Lymphocytes [#/volume] in Blood by Automated count Low 1.2-3.8 [facility] Lymphocytes/100 WBC Auto (Bl d)on 10-18-2024 Lymphocytes/100 WBC (Bld) Lymphocytes/100 leukocytes in Blood by Automated count Low 20.5-60.0 [facility] MCH Auto (RBC) [Entitic mass ]on 10-18-2024 MCH (RBC) [Entitic mass] MCH [Entitic mass] by Automated count High 25.9-34.0 [facility] MCHC Auto (RBC) [Mass/Vol]on 10-18-2024 MCHC (RBC) [Mass/Vol] MCHC [Mass/volume] by Automated count High 29.9-35.2 [facility] MCV Auto (RBC) [Entitic vol] on 10-18-2024 MCV (RBC) [Entitic vol] MCV [Entitic volume] by Automated count High 80.0-94.0 [facility] Monocytes Auto (Bld) [#/Vol] on 10-18-2024 Monocytes (Bld) [#/Vol] Automated blood monocyte count Low 0.3-0.8 [facility] Monocytes/100 WBC Auto (Bld) on 10-18-2024 Monocytes/100 WBC (Bld) Automated monocyte % 1.7-12.0 [facility] Neutrophils Auto (Bld) [#/Vo l]on 10-18-2024 Neutrophils (Bld) [#/Vol] Neutrophils [#/volume] in Blood by Automated count 1.4-6.5 [facility] Neutrophils/100 WBC Auto (Bl d)on 10-18-2024 Neutrophils/100 WBC (Bld) Automated neutrophil % High 43.0-75.0 [facility] No Panel Informationon 10-18 Eosinophils # (Auto) 0.0 10 3/uL 0.0-0.7 [facility] Immature Granulocyte # (Auto) 0.07 10 3/uL High 0.00-0.03 [facility] Platelet mean volume Auto (B ld) [Entitic vol]on 10-18-2024 Platelet mean volume (Bld) [Entitic vol] Platelet mean volume [Entitic volume] in Blood by Automated count 9.5-13.5 [facility] Platelets Auto (Bld) [#/Vol] on 10-18-2024 Platelets (Bld) [#/Vol] Platelets [#/volume] in Blood by Automated count 150-450 [facility] RBC Auto (Bld) [#/Vol]on RBC (Bld) [#/Vol] Erythrocytes [#/volume] in Blood by Automated count Low 4.70-6.10 [facility] Serum or plasma anion gap de terminationon 10-18-2024 Anion gap [Moles/Vol] Serum or plasma an ion gap determination [facility] Basophils Auto (Bld) [#/Vol] on 10-17-2024 Basophils (Bld) [#/Vol] Automated basophil count 0.0-0.1 [facility] Basophils/100 WBC Auto (Bld) on 10-17-2024 Basophils/100 WBC (Bld) Automated basophil % 0.2-2.0 [facility] Eosinophils/100 WBC Auto (Bl d)on 10-17-2024 Eosinophils/100 WBC (Bld) Automated eosinophil % 0.9-7.0 [facility] Erythrocyte distribution wid th Auto (RBC) [Ratio]on 10-17-2024 Erythrocyte distribution width (RBC) [Ratio] Erythrocyte distribution width [Ratio] by Automated count 11.0-15.0 [facility] Estimated glomerular filtrat ion rate (GFR) non- Americanon 10-17-2024 GFR/1.73 sq M.predicted among non-blacks MDRD (S/P/Bld) [Vol rate/Area] Estimated glomerular filtration rate (GFR) non- >=60 mL/min/1.73m 2 [facility] Globulin Calc (S) [Mass/Vol] on 10-17-2024 Globulin (S) [Mass/Vol] Serum globulin measurement by calculation (mass/volume) [facility] Hematocrit Auto (Bld) [Volum e fraction]on 10-17-2024 Hematocrit (Bld) [Volume fraction] Hematocrit [Volume Fraction] of Blood by Automated count 42.0-54.0 [facility] Hemoglobin [Mass/volume] in Bloodon 10-17-2024 Hemoglobin (Bld) [Mass/Vol] Hemoglobin [Mass/volume] in Blood 14.0-18.0 [facility] Laboratory - Chemistry and C hemistry - challengeon 10-17-2024 Albumin [Mass/Vol] 3.8 g/dL 3.4-5.0 [facility] ALP [Catalytic activity/Vol] 129 U/L High 46-116 [facility] ALT [Catalytic activity/Vol] 24 U/L 16-63 [facility] AST [Catalytic activity/Vol] 22 U/L 15-37 [facility] Bilirubin [Mass/Vol] 1.3 mg/dL High 0.2-1.0 [facility] Bilirubin.direct [Mass/Vol] 0.4 mg/dL High 0.0-0.2 [facility] Calcium [Mass/Vol] 9.3 mg/dL 8.5-10.1 [facility] Chloride [Moles/Vol] 101 mmol/L 98-107 [facility] CO2 [Moles/Vol] 25.5 mmol/L 21.0-32.0 [facility] Creatinine [Mass/Vol] 0.89 mg/dL 0.70-1.30 [facility] GFR/1.73 sq M.predicted MDRD (S/P/Bld) [Vol rate/Area] mL/min/{1.73_m2} >=60 mL/min/1.73m 2 [facility] Glucose [Mass/Vol] 175 mg/dL High 74-106 [facility] Magnesium [Mass/Vol] 1.8 mg/dL 1.8-2.4 [facility] Natriuretic peptide B (Bld) [Mass/Vol] 228.0 pg/mL <=900.0 [facility] Potassium [Moles/Vol] 3.8 mmol/L 3.5-5.1 [facility] Protein [Mass/Vol] 7.8 g/dL 6.4-8.2 [facility] Sodium [Moles/Vol] 137 mmol/L 136-145 [facility] Urea nitrogen [Mass/Vol] 11.0 mg/dL 7.0-18.0 [facility] Urea nitrogen/Creatinine [Mass ratio] 12.4 mg/mg [facility] Laboratory - Hematology and Cell countson 10-17-2024 Immature granulocytes/100 WBC (Bld) 0.6 % High 0.0-0.5 [facility] Laboratory - Microbiology an d Antimicrobial susceptibilityon 10-17-2024 SARS-CoV-2 (COVID-19) RNA RANDY+probe Ql (Unsp spec) Negative NEGATIVE [facility] Comment on above: This test has not be en FDA cleared or approved, but has beenauthorized by the FDA under an Emergency Use Authorization(EUA) for use by authorized laboratories certified underIA that meet the requirements to perform moderate or highcomplexity testing. This test has been authorized only forthe detection of proteins from SARS-CoV-2, not for any otherviruses or pathogens. The emergency use of this test isauthorized for the duration of the declaration thatcircumstances exist justifying the authorization ofemergency use of in vitro diagnostic tests for detectionand/or diagnosis of Covid-19 under section 564(b)(1) of theAct, 21 U.S.C. 360bbb-3(b)(1), unless the declaration isterminated or authorization is revoked sooner. Leukocytes [#/volume] correc conchis for nucleated erythrocytes in Blood by Automated counon 10-17-2024 WBC corrected for nucl RBC Auto (Bld) [#/Vol] Leukocytes [#/volume] corrected for nucleated erythrocytes in Blood by Automated coun 4.0-11.0 [facility] Lymphocytes Auto (Bld) [#/Vo l]on 10-17-2024 Lymphocytes (Bld) [#/Vol] Lymphocytes [#/volume] in Blood by Automated count 1.2-3.8 [facility] Lymphocytes/100 WBC Auto (Bl d)on 10-17-2024 Lymphocytes/100 WBC (Bld) Lymphocytes/100 leukocytes in Blood by Automated count 20.5-60.0 [facility] MCH Auto (RBC) [Entitic mass ]on 10-17-2024 MCH (RBC) [Entitic mass] MCH [Entitic mass] by Automated count High 25.9-34.0 [facility] MCHC Auto (RBC) [Mass/Vol]on 10-17-2024 MCHC (RBC) [Mass/Vol] MCHC [Mass/volume] by Automated count 29.9-35.2 [facility] MCV Auto (RBC) [Entitic vol] on 10-17-2024 MCV (RBC) [Entitic vol] MCV [Entitic volume] by Automated count High 80.0-94.0 [facility] Monocytes Auto (Bld) [#/Vol] on 10-17-2024 Monocytes (Bld) [#/Vol] Automated blood monocyte count High 0.3-0.8 [facility] Monocytes/100 WBC Auto (Bld) on 10-17-2024 Monocytes/100 WBC (Bld) Automated monocyte % 1.7-12.0 [facility] Neutrophils Auto (Bld) [#/Vo l]on 10-17-2024 Neutrophils (Bld) [#/Vol] Neutrophils [#/volume] in Blood by Automated count 1.4-6.5 [facility] Neutrophils/100 WBC Auto (Bl d)on 10-17-2024 Neutrophils/100 WBC (Bld) Automated neutrophil % 43.0-75.0 [facility] No Panel Informationon 10-17 Bedside Influenza Type A Antigen Negative [facility] Comment on above: Negative for Flu A p rotein antigen. Infection due to Flu Acannot be ruled out. Flu A antigen in the sample may bebelow the detection limit of the test. Bedside Influenza Type B Antigen Negative [facility] Comment on above: Negative for Flu B p rotein antigen. Infection due to Flu Bcannot be ruled out. Flu B antigen in the sample may bebelow the detection limit of the test. Eosinophils # (Auto) 0.6 10 3/uL 0.0-0.7 [facility] Immature Granulocyte # (Auto) 0.06 10 3/uL High 0.00-0.03 [facility] Troponin I High Sensitivity 7.9 pg/mL 4.0-76.1 [facility] Comment on above: CUT-OFF POINTS HAVE BEEN ESTABLISHED BASED ON THE FOURTHUNIVERSAL DEFINITION OF MYOCARDIAL INFARCTION. THE UPPERREFERENCE LIMIT (URL) OF TROPONIN, DEFINED THE 99THPERCENTILE OF cTnI DISTRIBUTION IN A REFERENCE POPULATION,HAS BEEN CONFIRMED THE DECISION THRESHOLD FOR MIDIAGNOSIS.99TH PERCENTILE = 76.2 PG/MLNOTE: HIGH-SENSITIVITY TROPONIN ASSAY IS NOT INTENDED TO BEUSED IN ISOLATION BUT SHOULD BE INTERPRETED IN CONJUNCTIONWITH OTHER DIAGNOSTIC AND CLINICAL INFORMATION. Platelet mean volume Auto (B ld) [Entitic vol]on 10-17-2024 Platelet mean volume (Bld) [Entitic vol] Platelet mean volume [Entitic volume] in Blood by Automated count 9.5-13.5 [facility] Platelets Auto (Bld) [#/Vol] on 10-17-2024 Platelets (Bld) [#/Vol] Platelets [#/volume] in Blood by Automated count 150-450 [facility] RBC Auto (Bld) [#/Vol]on RBC (Bld) [#/Vol] Erythrocytes [#/volume] in Blood by Automated count Low 4.70-6.10 [facility] Serum or plasma albumin/glob ulin mass ratioon 10-17-2024 Albumin/Globulin [Mass ratio] Serum or plasma albumin/globulin mass ratio [facility] Serum or plasma anion gap de terminationon 10-17-2024 Anion gap [Moles/Vol] Serum or plasma an ion gap determination [facility] Office Visiton 06-22-2024 Follow-up visit [id number] Alejandro Maradiaga 1955 M Date Provider Department Center 06/22/2024 [facility] Family History Problem Relation Age of Onset Stroke Mother Family Status - Relation Status Age at Mother Level of Service:31461 IN OFFICE/OUTPATIENT ESTABLISHED LOW MDM 20 MIN Normal [facility] Basophils Auto (Bld) [#/Vol] on 01-15-2024 Basophils (Bld) [#/Vol] 0.1 10 3/uL 0.0-0.1 [facility] Basophils/100 WBC Auto (Bld) on 01-15-2024 Basophils/100 WBC (Bld) 1.0 % 0.2-2.0 [facility] Eosinophils/100 WBC Auto (Bl d)on 01-15-2024 Eosinophils/100 WBC (Bld) 6.7 % 0.9-7.0 [facility] Erythrocyte distribution wid th Auto (RBC) [Ratio]on 01-15-2024 Erythrocyte distribution width (RBC) [Ratio] 13.7 % 11.0-15.0 [facility] Estimated glomerular filtrat ion rate (GFR) non- Americanon 01-15-2024 GFR/1.73 sq M.predicted among non-blacks MDRD (S/P/Bld) [Vol rate/Area] mL/min/{1.73_m2} >=60 [facility] Hematocrit Auto (Bld) [Volum e fraction]on 01-15-2024 Hematocrit (Bld) [Volume fraction] 42.8 % 42.0-54.0 [facility] Hemoglobin [Mass/volume] in Bloodon 01-15-2024 Hemoglobin (Bld) [Mass/Vol] 14.1 g/dL 14.0-18.0 [facility] Laboratory - Chemistry and C hemistry - challengeon 01-15-2024 Calcium [Mass/Vol] 9.1 mg/dL 8.5-10.1 [facility] Chloride [Moles/Vol] 98 mmol/L 98-107 [facility] CO2 [Moles/Vol] 26.6 mmol/L 21.0-32.0 [facility] Creatinine [Mass/Vol] 0.85 mg/dL 0.70-1.30 [facility] GFR/1.73 sq M.predicted MDRD (S/P/Bld) [Vol rate/Area] mL/min/{1.73_m2} >=60 [facility] Glucose [Mass/Vol] 173 mg/dL 74-106 [facility] Potassium [Moles/Vol] 4.2 mmol/L 3.5-5.1 [facility] Sodium [Moles/Vol] 136 mmol/L 136-145 [facility] Urea nitrogen [Mass/Vol] 15.0 mg/dL 7.0-18.0 [facility] Urea nitrogen/Creatinine [Mass ratio] 17.6 mg/mg [facility] Laboratory - Hematology and Cell countson 01-15-2024 Immature granulocytes/100 WBC (Bld) 0.5 % 0.0-0.5 [facility] Leukocytes [#/volume] correc conchis for nucleated erythrocytes in Blood by Automated counon 01-15-2024 WBC corrected for nucl RBC Auto (Bld) [#/Vol] 8.0 10 3/uL 4.0-11.0 [facility] Lymphocytes Auto (Bld) [#/Vo l]on 01-15-2024 Lymphocytes (Bld) [#/Vol] 2.7 10 3/uL 1.2-3.8 [facility] Lymphocytes/100 WBC Auto (Bl d)on 01-15-2024 Lymphocytes/100 WBC (Bld) 34.0 % 20.5-60.0 [facility] MCH Auto (RBC) [Entitic mass ]on 01-15-2024 MCH (RBC) [Entitic mass] 33.9 pg 25.9-34.0 [facility] MCHC Auto (RBC) [Mass/Vol]on 01-15-2024 MCHC (RBC) [Mass/Vol] 32.9 g/dL 29.9-35.2 [facility] MCV Auto (RBC) [Entitic vol] on 01-15-2024 MCV (RBC) [Entitic vol] 102.9 fL 80.0-94.0 [facility] Monocytes Auto (Bld) [#/Vol] on 01-15-2024 Monocytes (Bld) [#/Vol] 0.7 10 3/uL 0.3-0.8 [facility] Monocytes/100 WBC Auto (Bld) on 01-15-2024 Monocytes/100 WBC (Bld) 9.1 % 1.7-12.0 [facility] Neutrophils Auto (Bld) [#/Vo l]on 01-15-2024 Neutrophils (Bld) [#/Vol] 3.9 10 3/uL 1.4-6.5 [facility] Neutrophils/100 WBC Auto (Bl d)on 01-15-2024 Neutrophils/100 WBC (Bld) 48.7 % 43.0-75.0 [facility] No Panel Informationon 01-14 Eosinophils # (Auto) 0.5 10 3/uL 0.0-0.7 [facility] Immature Granulocyte # (Auto) 0.04 10 3/uL 0.00-0.03 [facility] Platelet mean volume Auto (B ld) [Entitic vol]on 01-15-2024 Platelet mean volume (Bld) [Entitic vol] 9.5 fL 9.5-13.5 [facility] Platelets Auto (Bld) [#/Vol] on 01-15-2024 Platelets (Bld) [#/Vol] 297 10 3/uL 150-450 [facility] RBC Auto (Bld) [#/Vol]on RBC (Bld) [#/Vol] 4.16 10 6/uL 4.70-6.10 [facility] Serum or plasma anion gap de terminationon 01-15-2024 Anion gap [Moles/Vol] 15.6 mmol/L [facility] CBC with differential (COPC) on 01-16-2023 BASO # 0.1 K CUMM Normal 0.0-0.2 [facility] Comment on above: Order Comment: Items in this order include: Comprehensive Metabolic Panel, Lipid Panel, Free T4, PSA (Screening Medicare Only), TSH, CBC with differential, Testing Performed By: [facility] [address] [place] [address] CLIA#:[id number] [address] Abbe Celeste, [employer]maker Performed By: #### C 4125, C408, C215, C47, C400, C8 #### [facility] [address] [place] [address] Basophils/100 WBC (Bld) 1.1 % Normal 0.0-3.0 [facility] Comment on above: Order Comment: Items in this order include: Comprehensive Metabolic Panel, Lipid Panel, Free T4, PSA (Screening Medicare Only), TSH, CBC with differential, Testing Performed By: [facility] [address] [place] [address] CLIA#:[id number] [address] Abbe Celeste, [employer]maker Performed By: #### C 4125, C408, C215, C47, C400, C8 #### [facility] [address] [place] [address] EOS # 0.7 K CUMM High 0.0-0.4 [facility] Comment on above: Order Comment: Items in this order include: Comprehensive Metabolic Panel, Lipid Panel, Free T4, PSA (Screening Medicare Only), TSH, CBC with differential, Testing Performed By: [facility] [address] [place] [address] CLIA#:[id number] Dr. Abbe Celeste, [employer] Performed By: #### C 4125, C408, C215, C47, C400, C8 #### [facility] [address] [place] [address] Eosinophils/100 WBC (Bld) 9.5 % High 0.0-7.0 [facility] Comment on above: Order Comment: Items in this order include: Comprehensive Metabolic Panel, Lipid Panel, Free T4, PSA (Screening Medicare Only), TSH, CBC with differential, Testing Performed By: [facility] [address] [place] [address] CLIA#:[id number] [address] bAbe Celeste, App[employer]maker Performed By: #### C 4125, C408, C215, C47, C400, C8 #### [facility] [address] [place] [address] Erythrocyte distribution width (RBC) [Ratio] 13.4 % Normal 11.5-15.5 [facility] Comment on above: Order Comment: Items in this order include: Comprehensive Metabolic Panel, Lipid Panel, Free T4, PSA (Screening Medicare Only), TSH, CBC with differential, Testing Performed By: [facility] [address] [place] [address] CLIA#:[id number] [address] Abbe Celeste, App[employer]maker Performed By: #### C 4125, C408, C215, C47, C400, C8 #### [facility] [address] [place] [address] Hematocrit (Bld) [Volume fraction] 45.6 % Normal 42.0-52.0 [facility] Comment on above: Order Comment: Items in this order include: Comprehensive Metabolic Panel, Lipid Panel, Free T4, PSA (Screening Medicare Only), TSH, CBC with differential, Testing Performed By: [facility] [address] [place] [address] CLIA#:[id number] [address] Abbe Celeste, App[employer] Performed By: #### C 4125, C408, C215, C47, C400, C8 #### [facility] [address] [place] [address] [address] [place] [address] Hemoglobin (Bld) [Mass/Vol] 15.9 g/dL Normal 13.5-18.0 [facility] Comment on above: Order Comment: Items in this order include: Comprehensive Metabolic Panel, Lipid Panel, Free T4, PSA (Screening Medicare Only), TSH, CBC with differential, Testing Performed By: [facility] [address] [place] [address] CLIA#:[id number] [address]. Abbe Celeste, App[employer] Patternmaker Performed By: #### C 4125, C408, C215, C47, C400, C8 #### [facility] [address] [place] [address] [address] [place] [address] ImmGrn # 0.0 K CUMM Normal 0.0-0.3 [facility] Comment on above: Order Comment: Items in this order include: Comprehensive Metabolic Panel, Lipid Panel, Free T4, PSA (Screening Medicare Only), TSH, CBC with differential, Testing Performed By: [facility] [address] [place] [address] CLIA#:[id number] [address] Abbe Celeste, App[employer] Patternmaker Performed By: #### C 4125, C408, C215, C47, C400, C8 #### [facility] [address] [place] [address] ImmGrn % 0.6 % Normal 0.0-3.0 [facility] Comment on above: Order Comment: Items in this order include: Comprehensive Metabolic Panel, Lipid Panel, Free T4, PSA (Screening Medicare Only), TSH, CBC with differential, Testing Performed By: [facility] [address] [place] [address] CLIA#:[id number] [address] Abbe Celeste, Apparel Patternmaker Performed By: #### C 4125, C408, C215, C47, C400, C8 #### [facility] [address] [place] [address] LYMPH # 2.7 K CUMM Normal 0.7-4.5 [facility] Comment on above: Order Comment: Items in this order include: Comprehensive Metabolic Panel, Lipid Panel, Free T4, PSA (Screening Medicare Only), TSH, CBC with differential, Testing Performed By: [facility] [address] [place] [address] CLIA#:[id number] [address] Abbe Celeste, Apparel Patternmaker Performed By: #### C 4125, C408, C215, C47, C400, C8 #### [facility] [address] [place] [address] Lymphocytes/100 WBC (Bld) 38.3 % Normal 14.0-46.0 [facility] Comment on above: Order Comment: Items in this order include: Comprehensive Metabolic Panel, Lipid Panel, Free T4, PSA (Screening Medicare Only), TSH, CBC with differential, Testing Performed By: [facility] [address] [place] [address] CLIA#:[id number] [address] Abbe Celeste, App[employer] Patternmaker Performed By: #### C 4125, C408, C215, C47, C400, C8 #### [facility] [address] [place] [address] MCH (RBC) [Entitic mass] 37.6 pg High 27.0-31.0 [facility] Comment on above: Order Comment: Items in this order include: Comprehensive Metabolic Panel, Lipid Panel, Free T4, PSA (Screening Medicare Only), TSH, CBC with differential, Testing Performed By: [facility] [address] [place] [address] CLIA#:[id number] Dr. Abbe Celeste, Apparel Patternmaker Performed By: #### C 4125, C408, C215, C47, C400, C8 #### [facility] [address] [place] [address] MCHC (RBC) [Mass/Vol] 34.9 g/dL Normal 32.0-36.0 [facility] Comment on above: Order Comment: Items in this order include: Comprehensive Metabolic Panel, Lipid Panel, Free T4, PSA (Screening Medicare Only), TSH, CBC with differential, Testing Performed By: [facility] [address] [place] [address] CLIA#:[id number] [address] Abbe Celeste, Apparel Patternmaker Performed By: #### C 4125, C408, C215, C47, C400, C8 #### [facility] [address] [place] [address] MCV (RBC) [Entitic vol] 107.8 fL High 78.0-100.0 [facility] Comment on above: Order Comment: Items in this order include: Comprehensive Metabolic Panel, Lipid Panel, Free T4, PSA (Screening Medicare Only), TSH, CBC with differential, Testing Performed By: [facility] [address] [place] [address] CLIA#:[id number] Dr. Abbe Celeste, Apparel Patternmaker Performed By: #### C 4125, C408, C215, C47, C400, C8 #### [facility] [address] [place] [address] MONO # 0.7 K CUMM Normal 0.1-1.0 [facility] Comment on above: Order Comment: Items in this order include: Comprehensive Metabolic Panel, Lipid Panel, Free T4, PSA (Screening Medicare Only), TSH, CBC with differential, Testing Performed By: [facility] [address] [place] [address] CLIA#:[id number] [address]. Abbe Celeste, Apparel Patternmaker Performed By: #### C 4125, C408, C215, C47, C400, C8 #### [facility] [address] [place] [address] Monocytes/100 WBC (Bld) 9.6 % Normal 4.0-13.0 [facility] Comment on above: Order Comment: Items in this order include: Comprehensive Metabolic Panel, Lipid Panel, Free T4, PSA (Screening Medicare Only), TSH, CBC with differential, Testing Performed By: [facility] [address] [place] [address] CLIA#:[id number] [address] Abbe Celeste, Apparel Patternmaker Performed By: #### C 4125, C408, C215, C47, C400, C8 #### [facility] [address] [place] [address] DANIEL # 2.9 K CUMM Normal 1.8-7.8 [facility] Comment on above: Order Comment: Items in this order include: Comprehensive Metabolic Panel, Lipid Panel, Free T4, PSA (Screening Medicare Only), TSH, CBC with differential, Testing Performed By: [facility] [address] [place] [address] CLIA#:[id number] Dr. Abbe Celeste, Apparel Patternmaker Performed By: #### C 4125, C408, C215, C47, C400, C8 #### [facility] [address] [facility] [address] [place] [address] Neutrophils/100 WBC (Bld) 40.9 % Normal 40.0-74.0 [facility] Comment on above: Order Comment: Items in this order include: Comprehensive Metabolic Panel, Lipid Panel, Free T4, PSA (Screening Medicare Only), TSH, CBC with differential, Testing Performed By: [facility] [address] [place] [address] CLIA#:[id number] Dr. Abbe Celeste, Apparel Patternmaker Performed By: #### C 4125, C408, C215, C47, C400, C8 #### [facility] [address] [facility] [address] [place] [address] Platelet mean volume (Bld) [Entitic vol] 11.0 fL Normal 8.9-12.6 [facility] Comment on above: Order Comment: Items in this order include: Comprehensive Metabolic Panel, Lipid Panel, Free T4, PSA (Screening Medicare Only), TSH, CBC with differential, Testing Performed By: [facility] [address] [place] [address] CLIA#:[id number] Dr. Abbe Celeste, Apparel Patternmaker Performed By: #### C 4125, C408, C215, C47, C400, C8 #### [facility] [address] [facility] [address] [place] [address] PLT 276 K CUMM Normal 130-400 [facility] Comment on above: Order Comment: Items in this order include: Comprehensive Metabolic Panel, Lipid Panel, Free T4, PSA (Screening Medicare Only), TSH, CBC with differential, Testing Performed By: [facility] [address] [place] [address] CLIA#:[id number] [address]. Abbe Celeste, Apparel Patternmaker Performed By: #### C 4125, C408, C215, C47, C400, C8 #### [facility] [address] [facility] [address] [place] [address] RBC 4.23 M CUMM Normal 4.20-5.80 [facility] Comment on above: Order Comment: Items in this order include: Comprehensive Metabolic Panel, Lipid Panel, Free T4, PSA (Screening Medicare Only), TSH, CBC with differential, Testing Performed By: [facility] [address] [place] [address] CLIA#:[id number] [address] Abbe Celeste, Apparel Patternmaker Performed By: #### C 4125, C408, C215, C47, C400, C8 #### [facility] [address] [facility] [address] [place] [address] WBC 7.1 K CUMM Normal 3.8-10.6 [facility] Comment on above: Order Comment: Items in this order include: Comprehensive Metabolic Panel, Lipid Panel, Free T4, PSA (Screening Medicare Only), TSH, CBC with differential, Testing Performed By: [facility] [address] [place] [address] CLIA#:[id number] Dr. Abbe Celeste, Apparel Patternmaker Performed By: #### C 4125, C408, C215, C47, C400, C8 #### [facility] [address] [facility] [place] [address] Comprehensive Metabolic Pane l ([facility]on 01-16-2023 Albumin [Mass/Vol] 4.5 g/dL Normal 3.2-4.8 [facility] Comment on above: Order Comment: Items in this order include: Comprehensive Metabolic Panel, Lipid Panel, Free T4, PSA (Screening Medicare Only), TSH, CBC with differential, Testing Performed By: [facility] [address] [place] [address] CLIA#:[id number] Dr. Abbe Celeste, Apparel Patternmaker Performed By: #### C 4125, C408, C215, C47, C400, C8 #### [facility] [address] [facility] [place] [address] Albumin/Globulin [Mass ratio] 1.6 {ratio} Normal 1.3-2.1 [facility] Comment on above: Order Comment: Items in this order include: Comprehensive Metabolic Panel, Lipid Panel, Free T4, PSA (Screening Medicare Only), TSH, CBC with differential, Testing Performed By: [facility] [address] [place] [address] CLIA#:[id number] [address] Abbe Celeste, Apparel Patternmaker Performed By: #### C 4125, C408, C215, C47, C400, C8 #### [facility] [address] [facility] [place] [address] Alk Phos 82 U/L Normal 40-127 [facility] Comment on above: Order Comment: Items in this order include: Comprehensive Metabolic Panel, Lipid Panel, Free T4, PSA (Screening Medicare Only), TSH, CBC with differential, Testing Performed By: [facility] [address] [place] [address] CLIA#:[id number] Dr. Abbe Celeste, Apparel Patternmaker Performed By: #### C 4125, C408, C215, C47, C400, C8 #### [facility] [address] [place] [address] ALT [Catalytic activity/Vol] 72 U/L High 10-49 [facility] Comment on above: Order Comment: Items in this order include: Comprehensive Metabolic Panel, Lipid Panel, Free T4, PSA (Screening Medicare Only), TSH, CBC with differential, Testing Performed By: [facility] [address] [place] [address] CLIA#:[id number] Dr. Abbe Celeste, Apparel Patternmaker Performed By: #### C 4125, C408, C215, C47, C400, C8 #### [facility] [address] [place] [address] AST [Catalytic activity/Vol] 63 U/L High <34 [facility] Comment on above: Order Comment: Items in this order include: Comprehensive Metabolic Panel, Lipid Panel, Free T4, PSA (Screening Medicare Only), TSH, CBC with differential, Testing Performed By: [facility] [address] [place] [address] CLIA#:[id number] [address]. Abbe Celeste, Apparel Patternmaker Performed By: #### C 4125, C408, C215, C47, C400, C8 #### [facility] [address] [facility] [address] [place] [address] B/C Ratio 15.0 Ratio Normal 10.0-28.6 [facility] Comment on above: Order Comment: Items in this order include: Comprehensive Metabolic Panel, Lipid Panel, Free T4, PSA (Screening Medicare Only), TSH, CBC with differential, Testing Performed By: [facility] [address] [place] [address] CLIA#:[id number] [address] Abbe Ceelste, Apparel Patternmaker Performed By: #### C 4125, C408, C215, C47, C400, C8 #### [facility] [address] [facility] [address] [place] [address] Bilirubin [Mass/Vol] 1.3 mg/dL High 0.3-1.2 [facility] Comment on above: Order Comment: Items in this order include: Comprehensive Metabolic Panel, Lipid Panel, Free T4, PSA (Screening Medicare Only), TSH, CBC with differential, Testing Performed By: [facility] [address] [place] [address] CLIA#:[id number] [address]. Abbe Celeste, Apparel Patternmaker Performed By: #### C 4125, C408, C215, C47, C400, C8 #### [facility] [address] [place] [address] Calcium [Mass/Vol] 9.8 mg/dL Normal 8.3-10.6 [facility] Comment on above: Order Comment: Items in this order include: Comprehensive Metabolic Panel, Lipid Panel, Free T4, PSA (Screening Medicare Only), TSH, CBC with differential, Testing Performed By: [facility] [address] [place] [address] CLIA#:[id number] Dr. Abbe Celeste, Apparel Patternmaker Performed By: #### C 4125, C408, C215, C47, C400, C8 #### [facility] [address] [facility] [facility] [address] [place] [address] Chloride [Moles/Vol] 103 mmol/L Normal 98-107 [facility] Comment on above: Order Comment: Items in this order include: Comprehensive Metabolic Panel, Lipid Panel, Free T4, PSA (Screening Medicare Only), TSH, CBC with differential, Testing Performed By: [facility] [address] [place] [address] CLIA#:[id number] [address] Abbe Celeste, Apparel Patternmaker Performed By: #### C 4125, C408, C215, C47, C400, C8 #### [facility] [address] [facility] [facility] [address] [place] [address] CO2 [Moles/Vol] 25 mmol/L Normal 20-31 [facility] Comment on above: Order Comment: Items in this order include: Comprehensive Metabolic Panel, Lipid Panel, Free T4, PSA (Screening Medicare Only), TSH, CBC with differential, Testing Performed By: [facility] [address] [place] [address] CLIA#:[id number] [address] Abbe Celeste, Apparel Patternmaker Performed By: #### C 4125, C408, C215, C47, C400, C8 #### [facility] [address] [facility] [address] [place] [address] Creatinine [Mass/Vol] 0.8 mg/dL Normal 0.7-1.3 [facility] Comment on above: Order Comment: Items in this order include: Comprehensive Metabolic Panel, Lipid Panel, Free T4, PSA (Screening Medicare Only), TSH, CBC with differential, Testing Performed By: [facility] [address] [place] [address] CLIA#:[id number] [address] bAbe Celeste, Apparel Patternmaker Performed By: #### C 4125, C408, C215, C47, C400, C8 #### [facility] [address] [facility] [place] [address] GFRCKD 97 mL/min per 1.73 Normal >60 [facility] Comment on above: Order Comment: Items in this order include: Comprehensive Metabolic Panel, Lipid Panel, Free T4, PSA (Screening Medicare Only), TSH, CBC with differential, Testing Performed By: [facility] [address] [place] [address] CLIA#:[id number] [address]. Abbe Celeste, Apparel Patternmaker Result Comment: The GFR estimate is not adjusted for race. Performed By: #### C 4125, C408, C215, C47, C400, C8 #### [facility] [address] [facility] [address] [place] [address] Globulin (S) [Mass/Vol] 2.8 g/dL Normal [facility] Comment on above: Order Comment: Items in this order include: Comprehensive Metabolic Panel, Lipid Panel, Free T4, PSA (Screening Medicare Only), TSH, CBC with differential, Testing Performed By: [facility] [address] [place] [address] CLIA#:[id number] Dr. Abbe Celeste, Apparel Patternmaker Performed By: #### C 4125, C408, C215, C47, C400, C8 #### [facility] [address] [facility] [address] [place] [address] Glucose [Mass/Vol] 101 mg/dL Normal 74-106 [facility] Comment on above: Order Comment: Items in this order include: Comprehensive Metabolic Panel, Lipid Panel, Free T4, PSA (Screening Medicare Only), TSH, CBC with differential, Testing Performed By: [facility] [address] [place] [address] CLIA#:[id number] [address] Abbe Celeste, Apparel Patternmaker Performed By: #### C 4125, C408, C215, C47, C400, C8 #### [facility] [address] [facility] [address] [place] [address] Potassium [Moles/Vol] 4.2 mmol/L Normal 3.5-5.1 [facility] Comment on above: Order Comment: Items in this order include: Comprehensive Metabolic Panel, Lipid Panel, Free T4, PSA (Screening Medicare Only), TSH, CBC with differential, Testing Performed By: [facility] [address] [place] [address] CLIA#:[id number] [address]. Abbe Celeste, Apparel Patternmaker Performed By: #### C 4125, C408, C215, C47, C400, C8 #### [facility] [address] [facility] [facility] [address] [place] [address] Protein [Mass/Vol] 7.3 g/dL Normal 5.7-8.2 [facility] Comment on above: Order Comment: Items in this order include: Comprehensive Metabolic Panel, Lipid Panel, Free T4, PSA (Screening Medicare Only), TSH, CBC with differential, Testing Performed By: [facility] [address] [place] [address] CLIA#:[id number] [address]. Abbe Celeste, Apparel Patternmaker Performed By: #### C 4125, C408, C215, C47, C400, C8 #### [facility] [address] [place] [address] Sodium [Moles/Vol] 138 mmol/L Normal 136-145 [facility] Comment on above: Order Comment: Items in this order include: Comprehensive Metabolic Panel, Lipid Panel, Free T4, PSA (Screening Medicare Only), TSH, CBC with differential, Testing Performed By: [facility] [address] [place] [address] CLIA#:[id number] Dr. Abbe Celeste, Apparel Patternmaker Performed By: #### C 4125, C408, C215, C47, C400, C8 #### [facility] [address] [place] [address] Urea nitrogen [Mass/Vol] 12 mg/dL Normal 9-23 [facility] Comment on above: Order Comment: Items in this order include: Comprehensive Metabolic Panel, Lipid Panel, Free T4, PSA (Screening Medicare Only), TSH, CBC with differential, Testing Performed By: [facility] [address] [place] [address] CLIA#:[id number] Dr. Abbe Celeste, Apparel Patternmaker Performed By: #### C 4125, C408, C215, C47, C400, C8 #### [facility] [address] [facility] [place] [address] Free T4 (COPC)on 01-16-2023 Free T4 [Mass/Vol] 0.9 ng/dL Normal 0.9-1.8 [facility] Comment on above: Performed By: #### C 4125, C408, C215, C47, C400, C8 #### [facility] [address] [facility] [address] [place] [address] Lipid Panel (COPC)on 023 Cholesterol [Mass/Vol] 145 mg/dL Normal <200 [facility] Comment on above: Result Comment: Low- risk levels (desirable) < 200 mg/dL Moderate-risk levels (borderline) 200 to 239 mg/dL High-risk levels > or = 240 mg/dL Performed By: #### C 4125, C408, C215, C47, C400, C8 #### [facility] [address] [facility] [place] [address] Cholesterol in HDL [Mass/Vol] 46 mg/dL Low >60 [facility] Comment on above: Performed By: #### C 4125, C408, C215, C47, C400, C8 #### [facility] [address] [facility] [address] [place] [address] Cholesterol in LDL [Mass/Vol] 88 mg/dL Normal <130 [facility] Comment on above: Performed By: #### C 4125, C408, C215, C47, C400, C8 #### [facility] [address] [facility] [facility] [address] [place] [address] Cholesterol.total/Cho lesterol in HDL [Mass ratio] 3.2 {ratio} Normal <4.0 [facility] Comment on above: Performed By: #### C 4125, C408, C215, C47, C400, C8 #### [facility] [address] [facility] [place] [address] Non-HDL Chol 99 Normal LDL Goal + 30 [facility] Comment on above: Result Comment: LDL and Non-HDL goal dependent upon individual risk Performed By: #### C 4125, C408, C215, C47, C400, C8 #### [facility] [address] [facility] [place] [address] Triglyceride [Mass/Vol] 55 mg/dL Normal <150 [facility] Comment on above: Performed By: #### C 4125, C408, C215, C47, C400, C8 #### [facility] [address] [facility] [facility] [address] [place] [address] VLDL-Calc 11 mg/dl Normal <30 [facility] Comment on above: Performed By: #### C 4125, C408, C215, C47, C400, C8 #### [facility] [address] [facility] [facility] [address] [place] [address] PSA (Screening Medicare Only ) ([facility])on 01-16-2023 SCRPSA 0.49 ng/mL Normal 0.00-4.00 [facility] Comment on above: Performed By: #### C 4125, C408, C215, C47, C400, C8 #### [facility] [address] [facility] [facility] [address] [place] [address] TSH ([facility])on 01-16-2023 TSH 2.462 MIU/mL Normal 0.550-4.780 [facility] Comment on above: Performed By: #### C 4125, C408, C215, C47, C400, C8 #### [facility] [address] [facility] [address] [place] [address] CT LUNG SCREENINGon 11-18-[address] LUNG [...] Self Edit Transcribed Date: 11/18/2022 14:11 Normal [facility] Basic Metabolic Panel [facility] 07-12-2021 Calcium [Mass/Vol] 9.5 mg/dL Normal 8.9-10.3 [facility] Comment on above: Performed By: #### C D:[id number] #### [facility] Chloride [Moles/Vol] 102 mmol/L Normal 98-107 [facility] Comment on above: Performed By: #### C D:[id number] #### [facility] CO2 [Moles/Vol] 25 mmol/L Normal 22-32 [facility] Comment on above: Performed By: #### C D:[id number] #### [facility] Creatinine [Mass/Vol] 0.7 mg/dL Normal 0.6-1.3 [facility] Comment on above: Performed By: #### C D:[id number] #### [facility] GFR/1.73 sq M.predicted (S/P/Bld) [Vol rate/Area] mL/min Normal [facility] Comment on above: Performed By: #### C D:[id number] #### [facility] Glucose [Mass/Vol] 185 mg/dL High 70-99 [facility] Comment on above: Performed By: #### C D:[id number] #### [facility] Potassium post dialysis [Moles/Vol] 4.0 mMol/L Normal 3.6-5.1 [facility] Comment on above: Performed By: #### C D:[id number] #### [facility] Sodium [Moles/Vol] 139 mmol/L Normal 136-145 [facility] Comment on above: Performed By: #### C D:[id number] #### [facility] Urea nitrogen [Mass/Vol] 8 mg/dL Normal 8-20 [facility] Comment on above: Performed By: #### C D:[id number] #### [facility] Blood Gas POCT VBG [facility]an[facility] (Uploaded)on 07-12-2021 Calcium.ionized (Bld) [Mass/Vol] 1.20 mMol/L Normal 1.12-1.32 [facility] Comment on above: Performed By: #### 2 4339-4x4 #### [facility]INT [facility] CARE Carboxyhemoglobin (Bld) [Mass fraction] 2.9 % Normal [facility] Comment on above: Result Comment: NON SMOKERS <1.5% SMOKERS 1.5 - 9.0% Performed By: #### 2 4339-4x4 #### [facility] Chemistry studies (set) 21.0 % Normal [facility] Comment on above: Performed By: #### 2 4339-4x4 #### PO[facility] CARE Chloride [Moles/Vol] 105 mmol/L Normal 98-106 [facility] Comment on above: Performed By: #### 2 4339-4x4 #### [facility] CARE Glucose [Mass/Vol] 182 mg/dL High 70-110 [facility] Comment on above: Performed By: #### 2 4339-4x4 #### [facility] CARE Hemoglobin (Bld) [Mass/Vol] 16.4 g/dL Normal 13.5-17.5 [facility] Comment on above: Performed By: #### 2 4339-4x4 #### PO[facility] CARE Lactate [Moles/Vol] 1.1 mmol/L Normal 0.5-2.2 [facility] Comment on above: Performed By: #### 2 4339-4x4 #### POINT [facility] CARE Methemoglobin (Bld) [Mass fraction] % Normal 0.2-0.6 [facility] Comment on above: Performed By: #### 2 4339-4x4 #### POINT OF CARE Oxygen (BldCoV) [Partial pressure] 52 mmHg High 25-40 [facility] Comment on above: Performed By: #### 2 4339-4x4 #### POINT OF CARE Oxyhemoglobin (Bld) [Mass fraction] 86.9 % High 40.0-70.0 [facility] Comment on above: Performed By: #### 2 4339-4x4 #### POINT OF CARE pCO2 Venous POCT 38 mmHg Low 41-51 [facility] Comment on above: Performed By: #### 2 4339-4x4 #### POINT [facility] CARE pH Venous POCT 7.43 High 7.31-7.41 [facility] Comment on above: Performed By: #### 2 4339-4x4 #### POINT OF CARE Potassium post dialysis [Moles/Vol] 3.8 mEq/L Normal 3.5-5.0 [facility] Comment on above: Performed By: #### 2 4339-4x4 #### POINT OF CARE SaO2% (BldCoV) [Mass fraction] 90.0 % High 40.0-70.0 [facility] Comment on above: Performed By: #### 2 4339-4x4 #### POINT OF CARE Sodium [Moles/Vol] 140 mmol/L Normal 136-146 [facility] Comment on above: Performed By: #### 2 4339-4x4 #### POINT OF CARE CBC POCTon 07-12-2021 Erythrocyte distribution width (RBC) [Entitic vol] 13.5 % Normal 11.0-16.3 [facility] Comment on above: Performed By: #### C D:[id number] #### [facility] Hematocrit (BldA) [Volume fraction] 47.1 % Normal 31.1-57.4 [facility] Comment on above: Performed By: #### C D:[id number] #### [facility] Hemoglobin (Bld) [Mass/Vol] 16.7 g/dL Normal 10.5-17.8 [facility] Comment on above: Performed By: #### C D:[id number] #### [facility] Lymphocytes (Bld) [#/Vol] 1.7 thou/mcL Normal 1.0-4.8 [facility] Comment on above: Performed By: #### C D:[id number] #### [facility] Lymphocytes/100 WBC (Bld) 16.4 % Low 25.0-57.0 [facility] Comment on above: Performed By: #### C D:[id number] #### [facility] MCH (RBC) [Entitic mass] 37.3 Picograms High 27.4-35.7 [facility] Comment on above: Performed By: #### C D:[id number] #### [facility] MCHC (RBC) [Mass/Vol] 35.5 g/dL Normal 32.7-36.7 [facility] Comment on above: Performed By: #### C D:[id number] #### [facility] MCV (RBC) [Entitic vol] 105.1 fL High 82.5-102.0 [facility] Comment on above: Performed By: #### C D:[id number] #### [facility] Neutrophils (Bld) [#/Vol] 8.0 thou/mcL High 1.8-7.7 [facility] Comment on above: Performed By: #### C D:[id number] #### [facility] Neutrophils/100 WBC (Bld) 77.9 % High 37.0-75.0 [facility] Comment on above: Performed By: #### C D:[id number] #### [facility] Platelet mean volume (Bld) [Entitic vol] 10.4 fL Normal 8.5-13.5 [facility] Comment on above: Performed By: #### C D:[id number] #### [facility] Platelets (Bld) [#/Vol] 267 thou/mcL Normal 166-400 [facility] Comment on above: Performed By: #### C D:[id number] #### [facility] RBC (Bld) [#/Vol] 4.48 million/mcL Normal 3.30-6.06 [facility] Comment on above: Performed By: #### C D:[id number] #### [facility] WBC (Bld) [#/Vol] 10.3 thou/mcL Normal 5.2-17.1 [facility] Comment on above: Performed By: #### C D:[id number] #### [facility] WBC other (Bld) [#/Vol] 0.6 thou/mcL Normal 0.1-1.3 [facility] Comment on above: Performed By: #### C D:[id number] #### [facility] WBC other/100 WBC (Bld) 5.7 % Normal 1.2-11.4 [facility] Comment on above: Performed By: #### C D:[id number] #### [facility] Coronavirus (COVID-19/SARS-C oV-2) POCTon 07-12-2021 SARS-CoV-2 (COVID-19) RdRp gene RANDY+probe Ql (Resp) Not detected Normal [facility] Comment on above: Result Comment: This test was performed via the [employer] NOW COVID-19 assay and has been authorized by FDA under an Emergency Use Authorization (EUA). The assay is validated for nasopharyngeal (WRINKLE CHASER), nasal, and oropharyngeal (OP) direct swabs. The [...] D-dimer Qn (PPP) 339 mcg/mL Normal 0-400 [facility] Comment on above: Performed By: #### C D:[id number] #### [facility] ED Pat Eduon 07-12-2021 ED Pat [facility] [address] [address] [phone] Emergency Department Discharge Instructions ALEJANDRO MARADIAGA, Please provide this information to your Primary Care/Specialist Name: ALEJANDRO MARADIAGA Current Date : 07/12/2021 09:45:39 : 1955 Primary Care Physician: Elle Cortes MD Diagnosis : COPD exacerbation; Pneumonia Follow-Up Instructions: ALEJANDRO MARADIAGA has been given these follow-up instructions: FOLLOW-UP APPOINTMENTS: Provider: Specialty: Address: Date: Elle Cortes MD Internal Medicine [address] [place] [address] (1) Comment: Call for an Appointment Laboratory [...] de los [facility] Name ALEJANDRO MARADIAGAN -[phone] [facility]# [id number] PLEASE READ THE FOLLOWING REGARDING YOUR MEDICATIONS [...] doses are changed, or new medications (including cuxe-rlb-kcxumzm products) are added. If you have any [...] your F (more content not included)... Normal [facility] Hepatic Function Panel POCTo n 07-12-2021 Albumin [Mass/Vol] 4.3 g/dL Normal 3.5-4.8 [facility] Comment on above: Performed By: #### C D:[id number] #### [facility] ALP (S/P/Bld) [Catalytic activity/Vol] 94 Units/L High 32-91 [facility] Comment on above: Performed By: #### C [id number] #### [facility] POINT [facility] CARE ALT/Aspartate aminotransferase [Catalytic ratio] 88 Units/L High 7-52 [facility] Comment on above: Performed By: #### C [id number] #### [facility]INT [facility] C[facility] Amylase [Catalytic activity/Vol] 38 Units/L Normal 26-100 [facility] Comment on above: Performed By: #### C [id number] #### [facility] AST [Catalytic activity/Vol] 70 Units/L High 15-41 [facility] Comment on above: Performed By: #### C [id number] #### [facility] POINT OF CARE Bilirubin [Mass/Vol] 1.2 mg/dL Normal 0.3-1.2 [facility] Comment on above: Performed By: #### C D:[id number] #### [facility] POINT OF CARE Gamma glutamyl transferase [Catalytic activity/Vol] 293 Units/L High 7-50 [facility] Comment on above: Performed By: #### C [id number] #### [facility]INT [facility] CARE Protein [Mass/Vol] 8.0 g/dL High 6.1-7.9 [facility] Comment on above: Performed By: #### C [id number] #### [facility] POINT OF CARE Troponin I POCT [facility] Troponin I.cardiac [Mass/Vol] 0.00 ng/mL Normal <0.08 [facility] Comment on above: Performed By: [...] Kodi Mohan MD 07/12/2021 07:14 Transcribed by: [facility] 07/12/2021 07:12 Technologist: ERIBERTO Ernst [facility] XR Chest 2 Viewson XR Chest [...] Lisa Parrish MD 05/08/2021 08:29 Transcribed by: [facility] 05/08/2021 08:29 Technologist: ZAID Ernst [facility] Vital Signs Date Time Vital Sign Value Performing Clinician Facility 07-07-2025 10:55-0400 Body height 175.26 cm Shanell Craig MD Work Phone: [facility] 07-07-2025 10:55-0400 Body mass index (BMI) [Ratio] 25.2 kg/m2 Shanell Craig MD Work Phone: [facility] 07-07-2025 10:55-0400 Body weight 77.56 kg Shanell Craig MD Work Phone: [facility] 07-07-2025 10:55-0400 Diastolic blood pressure 80 mm[Hg] Shanell Craig MD Work Phone: [facility] 07-07-2025 10:55-0400 Heart rate 80 /min Shanell Craig MD Work Phone: [facility] 07-07-2025 10:55-0400 Respiratory rate 20 /min Shanell Craig MD Work Phone: [facility] 07-07-2025 10:55-0400 SaO2% (BldA) [Mass fraction] 95 % Shanell Craig MD Work Phone: [facility] 07-07-2025 10:55-0400 Systolic blood pressure 138 mm[Hg] Shanell Craig MD Work Phone: [phone] [place] [address] 01-06-2025 10:55-0500 Body height 175.26 cm Shanell Craig MD Work Phone: [facility] 01-06-2025 10:55-0500 Body mass index (BMI) [Ratio] 25.4 kg/m2 Shanell Craig MD Work Phone: [facility] 01-06-2025 10:55-0500 Body weight 78.01 kg Shanell Craig MD Work Phone: [facility] 01-06-2025 10:55-0500 Diastolic blood pressure 93 mm[Hg] Shanell Craig MD Work Phone: [facility] 01-06-2025 10:55-0500 Heart rate 84 /min Shanell Craig MD Work Phone: [facility] 01-06-2025 10:55-0500 Respiratory rate 20 /min Shanell Craig MD Work Phone: [facility] 01-06-2025 10:55-0500 SaO2% (BldA) [Mass fraction] 97 % Shanell Craig MD Work Phone: [facility] 01-06-2025 10:55-0500 Systolic blood pressure 151 mm[Hg] Shanell Craig MD Work Phone: [facility] 12-29-2024 10:14-0500 Body height 175.26 cm Shanell Craig MD Work Phone: [facility] 12-29-2024 10:14-0500 Body mass index (BMI) [Ratio] 26.2 kg/m2 Shanell Craig MD Work Phone: [facility] 12-29-2024 10:14-0500 Body weight 80.34 kg Shanell Craig MD Work Phone: [facility] 12-29-2024 10:14-0500 Diastolic blood pressure 69 mm[Hg] Shanell Craig MD Work Phone: [facility] 12-29-2024 10:14-0500 Heart rate 80 /min Shanell Craig MD Work Phone: [facility] 12-29-2024 10:14-0500 Systolic blood pressure 133 mm[Hg] Shanell Craig MD Work Phone: [facility] 10-22-2024 11:16-0500 Body height 175.26 cm Shanell Craig MD Work Phone: [facility] 10-22-2024 11:16-0500 Body mass index (BMI) [Ratio] 25.5 kg/m2 Shanell Craig MD Work Phone: [facility] 10-22-2024 11:16-0500 Body weight 78.47 kg Shanell Craig MD Work Phone: [facility] 10-22-2024 11:16-0500 Diastolic blood pressure 68 mm[Hg] Shanell Craig MD Work Phone: [facility] 10-22-2024 11:16-0500 Heart rate 81 /min Shanell Craig MD Work Phone: [facility] 10-22-2024 11:16-0500 SaO2% (BldA) [Mass fraction] 96 % Shanell Craig MD Work Phone: [facility] 10-22-2024 11:16-0500 Systolic blood pressure 128 mm[Hg] Shanell Craig MD Work Phone: [facility] 05-18-2024 14:24-0400 Body height 175.26 cm [facility] 05-18-2024 14:24-0400 Body mass index (BMI) [Ratio] 24.2 kg/m2 [facility] 05-18-2024 14:24-0400 Body temperature 97.3 [degF] [facility] 05-18-2024 14:24-0400 Body weight 74.38 kg [facility] 05-18-2024 14:24-0400 Diastolic blood pressure 65 mm[Hg] [facility] 05-18-2024 14:24-0400 Heart rate 74 /min [facility] 05-18-2024 14:24-0400 Respiratory rate 20 /min [facility] 05-18-2024 14:24-0400 SaO2% (BldA) [Mass fraction] 97 % [facility] 05-18-2024 14:24-0400 Systolic blood pressure 114 mm[Hg] [facility] 02-23-2024 10:36-0400 Body height 175.26 cm MD Shanell Craig Work Phone: [facility] 02-23-2024 10:36-0400 Body mass index (BMI) [Ratio] 23.6 kg/m2 MD Shanell Craig Work Phone: [facility] 02-23-2024 10:36-0400 Body weight 72.57 kg MD Shanell Craig Work Phone: [facility] 02-23-2024 10:36-0400 Diastolic blood pressure 63 mm[Hg] MD Shanell Craig Work Phone: [facility] 02-23-2024 10:36-0400 Heart rate 86 /min MD Shanell Craig Work Phone: [facility] 02-23-2024 10:36-0400 Systolic blood pressure 108 mm[Hg] MD Shanell Craig Work Phone: [facility] 02-10-2024 15:48-0400 Body height 175.26 cm MD Shanell Craig Work Phone: [facility] 02-10-2024 15:48-0400 Body mass index (BMI) [Ratio] 23.3 kg/m2 MD Shanell Craig Work Phone: [facility] 02-10-2024 15:48-0400 Body temperature 96.5 [degF] MD Shanell Craig Work Phone: [facility] 02-10-2024 15:48-0400 Body weight 71.66 kg MD Shanell Craig Work Phone: [facility] 02-10-2024 15:48-0400 Diastolic blood pressure 78 mm[Hg] MD Shanell Craig Work Phone: [facility] 02-10-2024 15:48-0400 Heart rate 82 /min MD Shanell Craig Work Phone: [facility] 02-10-2024 15:48-0400 Respiratory rate 20 /min MD Shanell Craig Work Phone: [facility] 02-10-2024 15:48-0400 SaO2% (BldA) [Mass fraction] 97 % MD Shanell Craig Work Phone: [facility] 02-10-2024 15:48-0400 Systolic blood pressure 113 mm[Hg] MD Shanell Craig Work Phone: [facility] 10-24-2023 10:30-0500 Body height 175.26 cm Shanell Craig Other [facility] [employer] Other 10-24-2023 10:30-0500 Body mass index (BMI) [Ratio] 23.03 kg/m2 Shanell Craig Other [employer] [facility] [employer] Other 10-24-2023 10:30-0500 Body weight 70.76 kg Shanell Craig Other [employer] Other 10-24-2023 10:30-0500 Diastolic blood pressure 71 mm[Hg] Shanell Craig Other [employer] Other 10-24-2023 10:30-0500 SaO2% (BldA) [Mass fraction] 97 % Shanell Craig Other [employer] Other 10-24-2023 10:30-0500 Systolic blood pressure 118 mm[Hg] Shanell Craig Other [employer] Other 09-01-2023 08:30-0400 Body height 175.26 cm Irma Velezricardo Other [employer] Other 09-01-2023 08:30-0400 Body mass index (BMI) [Ratio] 24.81 kg/m2 Irma Ontiveros Other [employer] Other 09-01-2023 08:30-0400 Body temperature 97.2 [degF] Irma Ontiveros Other [employer] Other 09-01-2023 08:30-0400 Body weight 76.2 kg Irma Velezricardo Other [employer] Other 09-01-2023 08:30-0400 Diastolic blood pressure 82 mm[Hg] Irma Velezban Other [employer] Other 09-01-2023 08:30-0400 Respiratory rate 20 /min Irma Velezban Other [employer] Other 09-01-2023 08:30-0400 SaO2% (BldA) [Mass fraction] 98 % Irma Ontiveros Other [employer] Other 09-01-2023 08:30-0400 Systolic blood pressure 120 mm[Hg] Irma Ontiveros Other [employer] Other 06-20-2023 08:30-0400 Body height 172.72 cm Shanell Craig Other [employer] Other 06-20-2023 08:30-0400 Body mass index (BMI) [Ratio] 27.06 kg/m2 Shanell Craig Other [employer] Other 06-20-2023 08:30-0400 Body weight 80.74 kg Shanell Craig Other [employer] Other 06-20-2023 08:30-0400 Diastolic blood pressure 72 mm[Hg] Shanell Craig Other [employer] Other 06-20-2023 08:30-0400 Systolic blood pressure 133 mm[Hg] Shanell Craig Other [employer] Other 11-14-2022 10:36-0500 Body height 180.3 cm Rhonda Kaiser MD Work Phone: [employer] 11-14-2022 10:36-0500 Body mass index (BMI) [Ratio] 24.23 kg/m2 Rhonda Kaiser MD Work Phone: [employer] 11-14-2022 10:36-0500 Body temperature 97.59 [degF] Rhonda Kaiser MD Work Phone: [employer] 11-14-2022 10:36-0500 Body weight 78.79 kg Rhonda Kaiser MD Work Phone: [employer] 11-14-2022 10:36-0500 Diastolic blood pressure 80 mm[Hg] Rhonda Kaiser MD Work Phone: [employer] 11-14-2022 10:36-0500 Heart rate 75 /min Rhonda Kaiser MD Work Phone: [employer] 11-14-2022 10:36-0500 Respiratory rate 16 /min Rhonda Kaiser MD Work Phone: [employer] 11-14-2022 10:36-0500 SaO2% (BldA) [Mass fraction] 96 % Rhonda Kaiser MD Work Phone: [employer] Comment on above: [employer] 11-14-2022 10:36-0500 Systolic blood pressure 168 mm[Hg] Rhonda Kaiser MD Work Phone: [employer] Encounters Encounter Date Encounter Type Care Provider Facility Start: 07-07-2025 End: 07-07-2025 ambulatory Shanell Craig MD Work Phone: [facility] Work Phone: Start: 07-07-2025 End: 07-07-2025 Patient encounter procedure Tima Osorio [facility] Work Phone: Start: 06-13-2025 ambulatory RUTH STEINBERG [facility] Start: 04-08-2025 ambulatory [facility] Start: 02-01-2025 ambulatory [facility] Start: 01-06-2025 End: 01-06-2025 ambulatory Shanell Craig MD Work Phone: [facility] Work Phone: Start: 01-06-2025 End: 01-06-2025 Patient encounter procedure Shanell Craig MD Work Phone: [facility] Work Phone: Start: 12-31-2024 End: 12-31-2024 ambulatory MANOJ UMAÑA [facility] Start: 12-30-2024 Patient encounter procedure Shanell Craig MD Work Phone: [facility] Start: 12-29-2024 End: 12-29-2024 ambulatory Shanell Craig MD Work Phone: [facility] Work Phone: Start: 12-29-2024 End: 12-29-2024 Patient encounter procedure Shanell Craig MD Work Phone: [facility] Work Phone: Start: 12-28-2024 End: 12-28-2024 Patient encounter procedure Shanell Craig MD Work Phone: [facility] [address] Work Phone: Start: 12-28-2024 End: 12-28-2024 ambulatory Shanell Craig MD Work Phone: [facility] Work Phone: Start: 11-12-2024 ambulatory [facility] Start: 11-08-2024 ambulatory [facility] Start: 10-29-2024 Non-patient / Non-visit Shanell Craig MD Work Phone: [employer] [facility] [employer] Work Phone: Start: 10-22-2024 End: 10-22-2024 Patient encounter procedure Shanell Craig MD Work Phone: [facility] Work Phone: Start: 10-20-2024 Non-patient / Non-visit Shanell Craig MD Work Phone: [facility] Work Phone: Start: 10-18-2024 ambulatory [facility] Start: 10-18-2024 Non-patient / Non-visit Shanell Craig MD Work Phone: [facility] Work Phone: Start: 10-18-2024 Non-patient / Non-visit Shanell Craig MD Work Phone: [facility] Work Phone: Start: 10-17-2024 Non-patient / Non-visit Shanell Craig MD Work Phone: [facility] Work Phone: Start: 09-01-2024 ambulatory [facility] Start: 08-24-2024 ambulatory [facility] Start: 08-04-2024 ambulatory [facility] Start: 06-22-2024 End: 06-22-2024 ambulatory [facility] Start: 05-18-2024 End: 05-18-2024 ambulatory [facility] Work Phone: Start: 05-18-2024 End: 05-18-2024 Patient encounter procedure [facility] Work Phone: Start: 02-23-2024 End: 02-23-2024 ambulatory MD Shanell Craig Work Phone: [facility] Work Phone: Start: 02-23-2024 End: 02-23-2024 Patient encounter procedure MD Shanell Craig Work Phone: [facility] Work Phone: Start: 02-10-2024 End: 02-10-2024 ambulatory MD Shanell Craig Work Phone: [facility] Work Phone: Start: 02-10-2024 End: 02-10-2024 Patient encounter procedure MD Shanell Craig Work Phone: [facility] Work Phone: Start: 02-04-2024 ambulatory ELLE CORTES [facility] Start: 02-04-2024 ambulatory ELLE CORTES [facility] Start: 02-04-2024 ambulatory [facility] CORT[facility] Start: 01-15-2024 Non-patient / Non-visit MD Shanell Craig Work Phone: [facility] [employer] Work Phone: Start: 12-01-2023 End: 12-01-2023 ambulatory Kvngarnold Bacano Other [employer] Other Start: 12-01-2023 Telephone encounter Kvngarnold Suh floyd [facility] Start: 11-27-2023 End: 11-27-2023 ambulatory MD Shanell Craig Work Phone: [facility] Work Phone: Start: 11-27-2023 End: 11-27-2023 Patient encounter procedure MD Shanell Craig Work Phone: [facility] [address] Work Phone: Start: 11-04-2023 End: 11-04-2023 ambulatory Shanell Craig Other [employer] Other Start: 11-04-2023 Telephone encounter Shanell Craig [facility] Start: 10-24-2023 End: 10-24-2023 ambulatory Shanell Craig Other [employer] Other Start: 10-24-2023 Office outpatient visit 25 minutes Shanell Craig [facility] Start: 10-24-2023 Telephone encounter Shanell Craig [facility] Start: 10-24-2023 End: 10-24-2023 Patient encounter procedure MD Shanell Craig Work Phone: [facility] Work Phone: Start: 10-22-2023 End: 10-22-2023 ambulatory Irma Ontiveros Other [employer] Other Start: 10-22-2023 Telephone encounter Irma Ontiveros [facility] Start: 09-01-2023 End: 09-01-2023 ambulatory Irma Ontiveros Other [employer] Other Start: 09-01-2023 Office outpatient ne w 45 minutes Irma Ontiveros [facility] Start: 09-01-2023 End: 09-01-2023 Patient encounter procedure MD Shanell Craig Work Phone: [facility] Work Phone: Start: 08-25-2023 End: 08-25-2023 ambulatory Shanell Craig Other [employer] Other Start: 08-25-2023 Telephone encounter Shanell Craig [facility] Start: 07-08-2023 End: 07-08-2023 ambulatory Shanell Craig Other [employer] Other Start: 07-08-2023 Telephone encounter Shanell Craig [facility] Start: 06-20-2023 End: 06-20-2023 ambulatory Shanell Craig Other [employer] Other Start: 06-20-2023 Office outpatient ne w 30 minutes Shanell Craig [facility] Start: 03-03-2023 ambulatory [facility] Start: 11-25-2022 End: 11-25-2022 ambulatory JENNI NOBLET JENNI [facility] Start: 11-25-2022 End: 11-25-2022 ambulatory Jenni Noblet [facility] Comment on above: Spondylosis without myelopathy or radiculopathy, cervical region (Primary Dx); Neck pain; Cervicalgia; Chronic left shoulder pain; Left shoulder pain, unspecified chronicity Start: 11-25-2022 End: 11-25-2022 Treatment Jenni Nojudyt PT [facility] Start: 11-20-2022 End: 11-20-2022 ambulatory [facility] [place] Comment on above: Spondylosis without myelopathy or radiculopathy, cervical region (Primary Dx); Neck pain; Cervicalgia; Chronic left shoulder pain; Left shoulder pain, unspecified chronicity Start: 11-20-2022 End: 11-20-2022 Treatment Jenni Noblet PT [facility] Start: 11-18-2022 End: 11-18-2022 ambulatory [facility] Comment on above: Spondylosis without myelopathy or radiculopathy, cervical region (Primary Dx); Neck pain; Cervicalgia; Chronic left shoulder pain; Left shoulder pain, unspecified chronicity Start: 11-18-2022 End: 11-18-2022 Treatment Jenni Noblet PT [facility] Start: 11-15-2022 Refill Sheila Ace MA [facility] [place] Start: 11-15-2022 Refill Sheila Ace MA [facility] [place] Start: 11-14-2022 End: 11-14-2022 ambulatory JENNI NOBLET JENNI [facility] Start: 11-14-2022 End: 11-14-2022 ambulatory Jenni Noblet PT [facility] Comment on above: Spondylosis without myelopathy or radiculopathy, cervical region (Primary Dx); Neck pain; Cervicalgia; Chronic left shoulder pain; Left shoulder pain, unspecified chronicity Start: 11-14-2022 End: 11-14-2022 Treatment Jenni Noblet PT [facility] Start: 11-14-2022 End: 11-14-2022 ambulatory RHONDA KAISER [facility] Start: 11-14-2022 End: 11-14-2022 Office outpatient new 45 minutes Rhonda Kaiser MD Work Phone: [facility] Comment on above: Nicotine dependence, uncomplicated, unspecified nicotine product type (Primary Dx); Chronic obstructive pulmonary disease, unspecified COPD type (CMS/HCC) Start: 11-14-2022 End: 11-14-2022 Patient encounter procedure Rhonda Kaiser MD Work Phone: [facility] Start: 11-12-2022 End: 11-12-2022 ambulatory Jenn[facility] Comment on above: Spondylosis without myelopathy or radiculopathy, cervical region (Primary Dx); Neck pain; Cervicalgia; Chronic left shoulder pain; Left shoulder pain, unspecified chronicity Start: 11-12-2022 End: 11-12-2022 Treatment Jenni Noblet PT [facility] Start: 11-05-2022 End: 11-05-2022 ambulatory JENNI NOBLET JENNI [facility] Start: 11-05-2022 End: 11-05-2022 ambulatory Jenni Noblet PT [facility] Comment on above: Spondylosis without myelopathy or radiculopathy, cervical region (Primary Dx); Neck pain; Cervicalgia; Chronic left shoulder pain; Left shoulder pain, unspecified chronicity Start: 11-05-2022 End: 11-05-2022 Treatment Jenni Noblet PT [facility] Start: 10-30-2022 End: 10-30-2022 ambulatory JENNI NOBLET JENNI [facility] Start: 10-30-2022 End: 10-30-2022 ambulatory Jenni Noblet PT [facility] Comment on above: Spondylosis without myelopathy or radiculopathy, cervical region (Primary Dx); Neck pain Start: 10-30-2022 End: 10-30-2022 Evaluation Jenni Noblet PT [facility] Start: 02-06-2022 End: 02-06-2022 ambulatory TAGGE KALIE TAGSAEED KALIE~[id number] [facility] Start: 02-06-2022 End: 02-06-2022 ambulatory Kalie Tagge PT [facility] Comment on above: Cervicalgia (Primary Dx) Start: 02-06-2022 End: 02-06-2022 Treatment Kalie Tagge PT [facility] [place] Start: 02-04-2022 End: 02-04-2022 ambulatory ST[facility]MAN [facility] [place] Start: 01-28-2022 End: 01-28-2022 ambulatory STORM INMAN [facility] [place] Start: 01-24-2022 End: 01-24-2022 ambulatory TAGSAEED BROWN~[id number] [facility] Procedures Date Procedure Procedure Detail Performing Clinician Start: 12-28-2024 CT of lungs Shanell montgomery MD Work Phone: Start: 11-27-2023 CT of lungs MD Shanell Craig Work Phone: Plan of Treatment Date Care Activity Detail Author Start: 10-31-2026 Lipid panel Cholesterol [facility] (Lipid Panel) [facility] Start: 11-18-2023 End: 11-18-2023 Patient encounter procedure 11/18/2023 Appointment Radiology [facility] Start: 11-28-2022 End: 11-28-2022 ambulatory 11/28/2022 Treatment Physical Therapy Jenni Huang, PT [facility] [place] Start: 11-28-2022 End: 11-28-2022 ambulatory 11/28/2022 Treatment Physical Therapy Jenni Huang, PT [facility] [place] Start: 11-25-2022 End: 11-25-2022 ambulatory 11/25/2022 Treatment Physical Therapy Jenni Huang, PT [facility] [place] Start: 11-25-2022 End: 11-25-2022 ambulatory 11/25/2022 Treatment Physical Therapy Jenni Huang, PT [facility] [place] Start: 11-20-2022 End: 11-20-2022 ambulatory 11/20/2022 Treatment Physical Therapy Jenni Huang, PT [facility] [place] Start: 11-18-2022 End: 11-18-2022 Patient encounter procedure 11/18/2022 Appointment Radiology [facility] Start: 11-18-2022 End: 11-18-2022 ambulatory 11/18/2022 Treatment Physical Therapy Jenni Huang, PT [facility] Start: 11-14-2022 End: 11-14-[address] Lung Screening Imaging Routine Nicotine dependence, uncomplicated, unspecified nicotine product type Expected: 11/14/2022, Expires: 11/14/2023 [employer] Work Phone: Comment on above: Expected: 11/14/2022 , Expires: 11/14/2023 Start: 11-14-2022 End: 11-14-2022 ambulatory 11/14/2022 Treatment Physical Therapy Jenni Huang, PT [facility] Start: 11-14-2022 End: 11-14-2022 Patient encounter procedure 11/14/2022 Office Visit Pulmonology Rhonda Kaiser MD [address] [place] [address] [facility] Start: 11-12-2022 End: 11-12-2022 ambulatory 11/12/2022 Treatment Physical Therapy Jenni Huang, PT [facility] Start: 11-05-2022 End: 11-05-2022 ambulatory 11/05/2022 Treatment Physical Therapy Jenni Huang, PT [facility] Start: 10-31-2022 Hypertension/CHF/CAD Annual BMP Blood Test Hypertension/CHF/CAD Annual BMP Blood Test [employer] Start: 10-31-2022 Screening for malign ant neoplasm of colon Colorectal Cancer Screening: Stool Based Tests (FOBT/FIT) [employer] Start: 12-20-2021 COVID-19 Vaccine (4 - Booster for Moderna series) COVID-19 Vaccine (4 - Booster for Moderna series) [employer] Start: 2020 Falls Risk Assessment Falls Risk Ass essment [employer] Start: 11-25-2019 Abdominal aortic aneurysm screening Abdominal Aortic Aneurysm (AAA) Screen [employer] Start: 11-25-2019 Adolescent depressio n screening assessment Depression Screening [employer] Start: 11-25-2019 Hepatitis C screening Hepatitis C Sc reening [facility] Start: 11-25-2019 Medicare Annual Wellness Visit Medicare Annual Wellness Visit [facility] Start: 11-25-2019 Social Influencers o f Health Screening Social Influencers of Health Screening [facility] Start: 2005 Zoster Vaccines (1 o f 2) Zoster Vaccines (1 of 2) [facility] Start: 1974 DTaP,Tdap,and Td Vaccines (1 - Tdap) DTaP,Tdap,and Td Vaccines (1 - Tdap) [facility] Start: 1956 Hepatitis A Vaccines (1 of 2 - Risk 2-dose series) Hepatitis A Vaccines (1 of 2 - Risk 2-dose series) [facility] CT Unspecified body region [facility] CT Unspecified body region [facility] Urine culture [facility] Immunizations Immunization Date Immunization Notes Care Provider Fa [facility] 10-22-2024 influenza, high dose seasonal, preservative-free Shanell Craig MD Work Phone: [facility] Payers Date Payer Category Payer Self-pay 2024 Unknown [id number] 2023 Medicare [id number] 2022 Medicare [id number] 2020 Medicare MEDICARE MEDICAR E PART A & B [id number] 2020-Present [address] [facility] [place] [address] Medicare [id number] 2020 Medicare [id number] 2020 Medicare [id number] 2014 Private Health Insurance AETNA D OMESTIC AETNA DOMESTIC [id number] 2014-Present [address] [address] [place] [address] [id number] .[id number] 2014 Private Health Insurance AIMEE LEON [id number] 2014-Present [address] [place] [address] [id number] [id number] 2014 Private Health Insurance [id number] 1955 Unknown [id number] 2.16.840.1.675074.3.579.2.1 143 1955 Unknown [id number] 2.16.840.1.987322.3.579.2.1 143 1955 Unknown [id number] 2.16.840.1.006210.3.579.2.1 143 1955 Unknown [id number] 2.16.840.1.913087.3.579.2.1 143 1955 Unknown [id number] 2.16.840.1.358657.3.579.2.1 143 1955 Unknown [id number] 2.16.840.1.671847.3.579.2.1 143 1955 Unknown [id number] 2.16.840.1.117939.3.579.2.1 143 1955 Unknown [id number] 2.16.840.1.988922.3.579.2.1 143 1955 Unknown [id number] 2.16.840.1.240845.3.579.2.1 143 1955 Unknown [id number] 2.16.840.1.399447.3.579.2.1 143 1955 Unknown [id number] 2.16.840.1.271121.3.579.2.1 143 1955 Unknown [id number] 2.16.840.1.101264.3.579.2.1 143 1955 Unknown [id number] 2.16.840.1.955871.3.579.2.1 143 1955 Unknown [id number] 2.16.840.1.530055.3.579.2.1 143 1955 Unknown [id number] 2.16.840.1.131527.3.579.2.1 260 1955 Unknown [id number] 2.16.840.1.747006.3.579.2.1 260 1955 Unknown [id number] 2.16.840.1.248521.3.579.2.1 260 1955 Unknown [id number] 2.16.840.1.350851.3.579.2.1 260 1955 Unknown [id number] 2.16.840.1.514201.3.579.2.1 260 1955 Unknown [id number] 2.16.840.1.060499.3.579.2.1 260 Unknown [id number] 2.16.840.1.092754.3.579.2.5 31 Social History Date Type Detail Facility Tobacco smoking stat [facility] Tobacco smoking consumption unknown [facility] Start: 1955 Sex Assigned At Not on file [facility] Start: 10-19-2022 End: 11-18-2022 Exposure to SARS-CoV-2 (event) Not sure [facility] Start: 11-14-2022 Tobacco smoking status MTIS Ex-smoker [facility] Start: 02-10-2024 End: 02-10-2024 History of tobacco use Current smoker [facility] History of tobacco use Cigarette Smoker [facility] Start: 11-14-2022 Cigarettes smoked current (pack per day) - Reported 0.5 [facility] Sex Assigned At Sex Assigned At Bir th [facility] Start: 1955 Sex Assigned At Male [facility] Start: 12-29-2024 End: 01-06-2025 Sex Male (finding) [facility] Start: 07-07-2025 Tobacco smoking status NHIS Smokes tobacco daily (finding) [facility] Clinical Notes 08-29-2020 to 12-31-2024 Note Date & Type Note Facility 12-31-2024 Note Patient here for 6 m o follow up atrial flutter and dilated cardiomyopathy. He is not taking any cholesterol or antihypertensive medications. He was admitted to [facility] in Oct 2024 for COPD exacerbation. He denies chest pain, palpitations, and lightheadedness/syncope. He follows with Dr. Osorio of pulmonology and sees him next week. Review of Systems Cardiovascular: Positive for dyspnea on exertion. Respiratory: Positive for cough (chronic). [facility] 12-31-2024 Note SUBJECTIVE Reason for Visit: Alejandro Maradiaga is a 69 y.o. year old male patient being seen for 6-month follow-up visit. HPI: Alejadnro Maradiaga is a 69 yo male with PMH of atrial flutter with rapid ventricular response, complicated by systolic heart failure. As part of his cardiomyopathy evaluation, he underwent a cardiac catheterization, which revealed no significant coronary artery disease to explain his condition. He subsequently underwent a transesophageal echocardiogram (TESS) with cardioversion and has noted improvement since the procedure. Additionally, he underwent loop monitor placement on 03/17/2024. 12/31/2024 office visit follow-up: The patient was seen for a six-month follow-up visit and reports doing well overall. He had a hospital admission in October for a COPD exacerbation but denies any shortness of breath beyond his usual baseline. He reports discontinuing lisinopril and metoprolol and has not been monitoring his blood pressure. Today, his blood pressure is 132/78 mmHg with a heart rate of 79 bpm. He was advised to check his blood pressure multiple times per day and report his trends to the office. He notes experiencing fatigue while on metoprolol in the past. We discussed the option of restarting a low-dose metoprolol and/or resuming lisinopril 5 mg daily. He agreed to restart lisinopril 5 mg and will monitor his blood pressures at home, updating the office as needed. 06/22/2024 office visit (Dr. Castaneda): Patient underwent flutter ablation 01/21/2024 and subsequently underwent loop monitor placement on 03/17/2024. Loop has not revealed any concerning events for atrial fibrillation. Past Medical History: Diagnosis Date Abnormal ECG Arrhythmia Atrial fibrillation ([facility]) CHF (congestive heart failure) ([facility]) Past Surgical History: Procedure Laterality Date ANKLE SURGERY CARDIAC CATHETERIZATION CARDIOVERSION NECK SURGERY Patient Active Problem List Diagnosis Atrial fibrillation, unspecified type ([facility]) Acute pyelonephritis Systolic CHF ([facility]) COPD (chronic obstructive pulmonary disease) ([facility]) Atrial flutter ([facility]) S/P ablation of atrial flutter Atrial flutter by electrocardiogram ([facility]) Chronic systolic congestive heart failure ([facility]) family history includes Stroke in his mother. Social History Tobacco Use Smoking status: Every Day Current packs/day: 0.50 Average packs/day: 0.5 packs/day for 45.1 years (22.6 ttl pk-yrs) Types: Cigarettes Start date: 11/10/1979 Smokeless tobacco: Never Substance Use Topics Alcohol use: Not Currently OBJECTIVE Visit Vitals Ht 1.803 m (5' 11 ) BMI 23.01 kg/m??? Smoking Status Every Day BSA 1.94 m??? Physical Exam Constitutional: General Appearance: well-developed, appears stated age. Level of Distress: no acute distress. Neck: Jugular Veins: normal jugular venous pressure. Lungs: Auscultation: no rales or rhonchi and normal breath sounds. Cardiovascular: Rate And Rhythm: regular. Heart Sounds: normal S1 and s2; Systolic Murmur: not heard. Diastolic Murmur: not heard. Extremities: no edema Peripheral Pulses: Pulses: full and equal in all extremities except if noted. Abdomen: Inspection and Palpation: non distended or tender and soft. Musculoskeletal: Inspection: no joint tenderness or swelling. Neurologic: Gait: normal gait. Psychiatric: Mental Status: alert and normal affect. Skin: Inspection and Palpation: warm and dry. Allergies: Allergies Allergen Reactions Adenosine Anaphylaxis Latex Shortness of breath Outpatient Medications: Current Outpatient Medications Medication Instructions albuterol 90 mcg/actuation inhaler 1 puff, inhalation, Daily apixaban (ELIQUIS) 5 mg, oral, 2 times daily atorvastatin (LIPITOR) 10 mg, oral, Nightly dapagliflozin propanediol (FARXIGA) 10 mg, oral, Daily ipratropium-albuteroL (Duo-Neb) 0.5-2.5 mg/3 mL nebulizer solution 3 mL, nebulization, 2 times daily, 2.5mg base lisinopril 5 mg, oral, Daily metoprolol succinate XL (TOPROL-XL) 25 mg, oral, Daily, Do not crush or chew. montelukast (SINGULAIR) 10 mg, oral, Nightly nicotine (Nicoderm CQ) 14 mg/24 hr patch 1 patch, transdermal, Every 24 hours, Apply 14mg patch daily x6 weeks then 7mg patch daily x 2 weeks; remove old patch before applying new patch; can repeat if needed nicotine (Nicoderm CQ) 7 mg/24 hr patch 1 patch, transdermal, Every 24 hours, Apply 14mg patch daily x6 weeks then 7mg patch daily x 2 weeks; remove old patch before applying new patch; can repeat if needed Recent Labs: No visits with results within 6 Month(s) from this visit. Latest known visit with results is: Ancillary Procedure on 06/21/2024 Component Date Value BSA 08/04/2024 1.94 I have personally reviewed and interpreted the following laboratory results: CBC, CMP, lipid profile, and any additional relevant lab work available at this time. These findings have been analyzed in t (more content not included)... [facility] 12-28-2024 Radiology Diagnostic study note [facility] [address] CT Scan Report Signed Patient: Alejandro Maradiaga MR#: [id number] : 1955 Acct:[id number] Age/Sex: 69 / M ADM Date: 5 Loc: [facility] Room: Type: [facility] Attending Dr: Tima Osorio MD Copies to: Tima Osorio MD~ Ordering Provider: Tima Osorio MD Date of Service: 12/28/24 CT/CT lung screening: F17.200 - Nicotine dependence, unspecified, uncomplicated CT Chest lung screening without contrast TECHNIQUE: Axial imaging with 2-D reconstruction. The CT exam was performed using one or more the following dose reduction techniques: Automated exposure control, adjustment of the MA and/or Kv according to patient size, or use of theiterative reconstruction technique. History: Annual low-dose screening. Current smoker. COMPARISON: 11/27/2023 THYROID: Unremarkable TRACHEA AND BRONCHI: Diffuse bronchial wall thickening. ESOPHAGUS: Unremarkable. HEART: Within normal limits PERICARDIAL EFFUSION: None CORONARY ARTERY CALCIFICATION: None MEDIASTINUM: No adenopathy. No pneumoperitoneum. No mediastinal hematoma. PULMONARY TRACIE: No hilar mass or adenopathy is seen. THORACIC AORTA Unremarkable LUNG NODULE stable 14 mm noncalcified pulmonary nodule in the right lower lobe in paraspinal region. Best seen with image #132. LUNGS: Emphysema and associated scarring redemonstrated PLEURAL EFFUSION: None PNEUMOTHORAX: No pneumothorax seen. CHEST WALL: No abnormality AXILLA:Unremarkable BONY STRUCTURES Intact UPPER ABDOMEN: Images of the upper abdomen are noncontributory. CT/CT lung screening IMPRESSION: Stable 14 mm right lower lobe lung nodule. Emphysema with associated scarring. No enlarging or new nodule. FINAL ASSESSMENT: Probably benign. May recommend further assessment with PET/CTimaging. Additionally Short-term 6 month observation could be obtained. Lung-RADS Version 1.0 Assessment Category: 3 REMARKS: Continued annual screening with LDCT in 6 months is recommended. Impression dictated by: Michael Seth M.D.12/28/2024 2:46 PM Dictation Location: [place] [address] Transcribed By: [facility] 12/28/24 1446 Dictated By: Michael Seth DO 12/28/24 1435 Signed By: 12/28/24 1446 [facility] 10-22-2024 Evaluation note Diagnosis Onset Date Resolution Screening PSA (prostate specific antigen) acute October 22, 2024 11:01am Severe chronic obstructive pulmonary disease acute October 22, 024 11:01am UTI (urinary tract infection) acute October 22, 2 024 11:01am [facility] Work Phone: 1(579) 252-946812-13-2024 Evaluation note* Diagnosis Onset Date Resolution Status Admit Date Screening PSA (prostate specific antigen) acute October 22, 2024 11:01am Severe chronic obstructive pulmonary disease acute October 22, 2024 11:01am UTI (urinary tract infection) acute October 22, 2024 11:01am Elevated glucose level acute Fe bruary 19th, 2025 10:09am [facility] Work Phone: 1(686) 454-212212-13-2024 Evaluation note* Diagnosis Onset Date Resolution Status Admit Date Screening PSA (prostate specific antigen) acute October 22, 2024 11:01am Severe chronic obstructive pulmonary disease acute October 22, 2024 11:01am UTI (urinary tract infection) acute October 22, 2024 11:01am Elevated glucose level acute 2024 10:09am Medicare annual wellness visit, subsequent acute December 29, 2024 10:09am Severe chronic obstructive pulmonary disease acute December 29, 2024 10:09am Severe chronic obstructive pulmonary disease acute January 06, 2025 10:51am Tobacco use disorder acute [facility] 2024 10:51am Unspecified atrial flutter acute January 06, 2025 10:51am [facility] Work Phone: 1(368) 198-101908-13-2024 NoteUT Electrophysiology Consult Note Reason for visit: Afib [...] on Eliquis. Goes to cardiac rehab at [facility] a few times a week. Had [...] Intimate Partner Violence: Not At Risk (10/15/2023) [place] [facility] Fear of Current or [...] mouth in the morning. 90 tablet 3 zbxramvynor-rirrculwe-yaxuimdw 200-62.5-25 mcg blister with device Inhale in [...] Eyes Lids and Conjunctivae: (more content not included)...[facility]01-22-2024 Evaluation note* Encounter Date Diagnosis Assessment Notes Treatment Notes Treatment Clinical Notes Nov, Severe chronic obstructive pulmonary disease (ICD-10 - J44.9) [facility] 12-15-2023 Evaluation note* Encounter Date Diagnosis Assessment Notes Treatment Notes Treatment Clinical Notes Oct, Unspecified atrial fibrillation (ICD-10 - I48.91) Continue meds, followup w cardio. Pt has not heard from Cardiac rehab, will reach out as he was referred by [facility] Oct, Unspecified atrial flutter (ICD-10 - I48.92) Oct, Chronic systolic congestive heart failure (ICD-10 - I50.22) Pt symptoms are improving. Oct, Sepsis due to Escherichia coli without acute organ dysfunction (ICD-10 - A41.51) Resolved. Has finished course of antibiotics Oct, Severe chronic obstructive pulmonary disease (ICD-10 - J44.9) Pt on nicotine patch. Continue to followup w pulmonology. [facility] Other 10-23-2023 Evaluation note* Encounter Date Diagnosis Assessment Notes Treatment Notes Treatment Clinical Notes Aug, Severe chronic obstructive pulmonary disease (ICD-10 - J44.9) Referral to pulmonary rehab Aug, Tobacco use disorder (ICD-10 - F17.200) [facility] Other 10-16-2023 Evaluation note* Encounter Date Diagnosis Assessment Notes Treatment Notes Treatment Clinical Notes Aug, Chronic bronchitis, unspecified chronic bronchitis type (ICD-10 - J42) [facility] Other 08-29-2023 Evaluation note* Encounter Date Diagnosis Assessment Notes Treatment Notes Treatment Clinical Notes Jun, Chronic bronchitis, unspecified chronic bronchitis type (ICD-10 - J42) [facility] Other 08-11-2023 Evaluation note* Encounter Date Diagnosis [...] likes to keep an rx on hand. [facility] Other 05-01-2023 History general Narrative - Reported* Type Description Date Medical History COPD Medical History Seasonal allergies Medical History Hyperlipidemia Surgical History Cataract surgery, both 03/2023 Surgical History Sinus surgery 2019 Surgical History C7 surgery and foramenostomy 19 93 [facility] Other 05-01-2023 History general Narrative - Reported* Type Description Date Medical History Seasonal allergies Medical History Hyperlipidemia Surgical History Cataract surgery, both 03/2023 Surgical History Sinus surgery 2019 Surgical History C7 surgery and foramenostomy 19 93 Hospitalization History rt fibula fx 2017 [facility] Other 05-01-2023 History general Narrative - Reported* Type Description Date Medical History Seasonal allergies Medical History Hyperlipidemia Medical History Afib Surgical History Cataract surgery, both 03/2023 Surgical History Sinus surgery 2019 Surgical History C7 surgery and foramenostomy 19 93 Hospitalization History rt fibula fx 2017 [facility] Other 01-16-2023 History of Present illness Narrative* Jenni Huang, PT - 11/25/2022 12:15 PM EST [facility] [place] [address] [place] [address] Physical Therapy Treatment Patient Name: Alejandro Maradiaga Date of : 1955 Today's Date: 11/25/22 Visit Number: 7 Referring Provider: Hunter Cortes DO Patient Primary Language: Wallisian Referring Diagnosis: Spondylosis without myelopathy or radiculopathy, [...] the rest of the day. Pain In: 310 Out: better /10 Objective: Improved posture at [...] symptoms by > 50%. 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 [] Goals met, discharge to HEP [] Hold or discharge therapy due to: Jenni Huang PT documented in this encounterPunxsutawney Area [id number] History of Present illness Narrative* Jenni Huang PT - 11/20/2022 12:00 PM EST [facility] [place] [address] [place] [address] Physical Therapy Treatment Patient Name: Alejandro Maradiaga Date of : 1955 Today's Date: 11/20/22 Visit Number: 6 Referring Provider: Hunter Cortes DO Patient Primary Language: Wallisian Referring Diagnosis: Spondylosis without myelopathy or radiculopathy, [...] symptoms by > 50%. [] [] [] Usp Goals - 4 weeks Met Progressing Towards [...] current frequency to advance towards short and [place] [facility] goals. [] Goals met, discharge to HEP [] Hold or discharge therapy due to: Jenni Huang PT documented in this encounterPunxsutawney Area [id number] History of Present illness Narrative* Jenni Huang PT - 11/18/2022 9:00 AM EST [facility] [place] [address] [place] [address] Physical Therapy Treatment Patient Name: Alejandro Maradiaga Date of : 1955 Today's Date: 11/18/22 Visit Number: 5 Referring Provider: Hunter Cortes DO Patient Primary Language: Wallisian Referring Diagnosis: Spondylosis without myelopathy or radiculopathy, [...] symptoms by > 50%. 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 [] Goals met, discharge to HEP [] Hold or discharge therapy due to: Jenni Huang PT documented in this encounterPunxsutawney Area [id number] History of Present illness Narrative* Sheila Ace MA - 11/15/2022 9:50 AM EST Pt called for a refill on Trelegy Ellipta 200-62.5-25 mcg inhaler. Stated he got both of his albuterols but not Trelegy Ellipta. documented in this encounterPunxsutawney Area [id number] History of Present illness Narrative* Jenni Huang PT - 11/14/2022 1:30 PM EST [facility] [place] [address] [place] [address] Physical Therapy Treatment Patient Name: Alejandro Maradiaga Date of : 1955 Today's Date: 11/14/22 Visit Number: 4 Referring Provider: Hunter Cortes DO Patient Primary Language: Wallisian Referring Diagnosis: Spondylosis without myelopathy or radiculopathy, [...] [] [] [] [] NEXT: add prone hughstons Patient Response to treatment: Pt tolerated all [...] symptoms by > 50%. [] [] [] Brush Clearer Surveying Goals - 4 weeks Met Progressing Towards [...] current frequency to advance towards short and [place] goals. [] Goals met, discharge to HEP [] Hold or discharge therapy due to: Jenni Huang PT documented in this encounterPunxsutawney Area [id number] History of Present illness Narrative* Rhonda Kaiser MD - 11/14/2022 10:30 AM EST Images from the original note were not included. Pulmonary and Sleep Medicine [facility], [address] [place] [address] Time:11:24 AM EST Reason for Consultation: COPD History Of Present Illness (includes Chief Complaint) Alejandro Maradiaga is a 67 y.o. male who was referrred to our office for COPD. 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 Patient in the past saw Dr. Tolentino, for over 14 years. However he did switch to [employer], and our office is much more convenient [...] He also has a daughter who teaches [employer] in [facility]. 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 see an pocket grinder operator Prior history of latex allergy COPD Surgical [...] DR capsule, 1 capsule, Disp: , Rfl: jrufnetrrbb-hbacaqhwdpjb-hrfvlzqtgf (Trelegy Ellipta) 200-62.5-25 mcg inhaler, Inhale 1 puff (200 mcg total) by mouth 1 (one) time each day., Disp: 60 each, Rfl: 4 llhhqjuuziq-dlujmkmfpycq-usbhvclfei (Trelegy Ellipta) 200-62.5-25 mcg inhaler, Inhale 1 puff by mouth daily, Disp: 60 each, Rfl: 4 wxmxlbhqjdn-spfzigcjqldj-lmbcwbxitl (Trelegy Ellipta) 200-62.5-25 mcg inhaler, Inhale 1 puff by mouth daily, Disp: 60 each, Rfl: 4 dimsfrswzob-gjplokranifz-jjnxeffqvd (Trelegy Ellipta) 200-62.5-25 mcg inhaler, Inhale 1 [...] - General (Internal Medicine) documented in this encounterPunxsutawney Area [id number] History of Present illness Narrative* Jenni Huang, PT - 11/12/2022 3:00 PM EST [facility] [place] [address] [place] [address] Physical Therapy Treatment Patient Name: Alejandro Maradiaga Date of : 1955 Today's Date: 11/12/22 Visit Number: 3 Referring Provider: Hunter Cortes DO Patient Primary Language: Wallisian Referring Diagnosis: Spondylosis without myelopathy or radiculopathy, [...] [] [] [] [] NEXT: add prone hughpedros Patient Response to treatment: Pt tolerated all [...] symptoms by > 50%. 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 [] Goals met, discharge to HEP [] Hold or discharge therapy due to: Jenni Huang PT documented in this encounterPunxsutawney Area [id number] History of Present illness Narrative* Jenni Huang PT - 11/05/2022 11:30 AM EST [facility] [place] [address] [place] [address] Physical Therapy Treatment Patient Name: Alejandro Maradiaga Date of : 1955 Today's Date: 11/05/22 Visit Number: 2 Referring Provider: Hunter Cortes DO Patient Primary Language: Wallisian Referring Diagnosis: Spondylosis without myelopathy or radiculopathy, [...] over weekend. He feels HEP issued at [employer]. Pain In: 02/17 Out: 2 Objective: Poor posture at rest but able [...] symptoms by > 50%. [] [] [] Brush Clearer Surveying Goals - 4 weeks Met Progressing Towards [...] current frequency to advance towards short and [place] [facility] goals. [] Goals met, discharge to HEP [] Hold or discharge therapy due to: Jenni Huang PT documented in this encounterPunxsutawney Area [id number] History of Present illness Narrative* Jenni Huang PT - 10/30/2022 9:30 AM EST [facility] [place] [address] [place] [address] Physical Therapy Orthopedic Evaluation Patient Name: Alejandro Maradiaga Date of : 1955 Today's Date: 10/30/22 Visit Number: 1 Referring Provider: Hunter Cortes DO Patient Primary Language: Wallisian Referring Diagnosis: Spondylosis without myelopathy or radiculopathy, cervical region [M47.812] Diagnoses: ICD-10-CM ICD-9-CM 1. Spondylosis without myelopathy or radiculopathy, cervical region M47.812 721.0 Ambulatory referral to Physical Therapy and Athletic Training 2. Neck pain M54.2 723.1 Subjective: Chief Complaint: B neck pain in suboccipital area & B SCMs. Denies UE pain, numbness, or tingling. Pain: 11/19 currently. Worse -02/17 Date of Injury: 2 months ago Mechanism [...] disease [] Rheumatic disease [x] Arthritis [] [place]/Heart Problems [] Cancer [] Pacemaker [] Other [x]Refer to full medical chart in [facility] []Unremarkable [x] Wears glasses/contacts [] [] Bowel or Bladder Issues Tests: [x] X-Ray: [] MRI: [] Other: 10/07/22 Multilevel DDD Objective: [place] Precautions: YES Observations: B mild dupuytren deformity [...] symptoms by > 50%. [] [] [] Brush Clearer Surveying Goals - 4 weeks Met Progressing Towards [...] Score Predicted Value. [] [] [] Assessment: Edward A Belkin is a 67 [...] plan: Yes Treatment Plan: [x] Therapeutic Exercise (42793) [] Iontophoresis: 4 mg/mL Dexamethasone Sodium Phosphate 40-120 mAmin (24927) [x] Therapeutic Activity (49709) [] Ultrasound (72361) [] Gait Training (29863) []Electrical Stimulation Unattended (70193) [x] Neuromuscular Re-education (27000) [] Electrical Stimulation Attended (28154) [x] Manual Therapy (23630) [] Aquatic Therapy (23580) [x] Instruction in HEP [] Lumbar/Cervical Traction (66867) [] [] Dry Needling, 1 or 2 muscles () [] [] Dry Needling, 3 or more muscles () [] Vasopneumatic cold with compression (65028) [] Hot pack/Cold Pack [facility] [place] [address] [place] [address] [address] [place] [address] Physical Therapy Treatment Patient Name: Alejandro Maradiaga Date of : 1955 Today's Date: 10/30/22 Visit Number: 1 Referring Provider: Hunter Cortes DO Patient Primary Language: Wallisian Referring Diagnosis: Spondylosis without myelopathy or radiculopathy, [...] symptoms by > 50%. [] [] [] Brush Clearer Surveying Goals - 4 weeks Met Progressing Towards [...] current frequency to advance towards short and [place] [facility] goals. [] Goals met, discharge to HEP [] Hold or discharge therapy due to: Jenni Huang PT documented in this encounterPunxsutawney Area [id number] History of Present illness Narrative* Kalie Meléndez, [...] him how to self massage Modalities: PRN: [facility] traction Precautions: none, L RCR 2017, laminectomy [...] goals. Kalie Meléndez PT documented in this encounterPunxsutawney Area [id number] Physician Hospital Discharge summaryEMERGENCY DEPARTMENT DISCHARGE SUMMARY PATIENT NAME:ALEJANDRO MARADIAGA AGE: 66 Years SEX: Male PHONE:[phone] DOS: 07/12/2021 06:15:00 : 1955 ER PHYSICIAN:Kamlesh [...] No pneumothorax.IMPRESSION:Mild right midlung opacity suspicious for infiltrate.Mariajose Griffith thanks you for the opportunity to care for your patient. Workstation ID: [id number] DIAGNOSTICS: FOLLOW UP: With: Address: When: Elle Cortes [address], [address] [place] [id number] Business (1) Comments: [facility] Bacteria identified Aer cx Nom (Drain)[facility] Microbiology PROCEDURE: Culture Drainage SOURCE: Sinus [...] <=0.25 Tetracycline Resistant >=16 Trimethoprim/ Susceptible <=10 SulfamethoxazoleSalem City HospitalComment on above:Performed By: #### 607-2 #### [facility] [address] [place], [place]Evalunemours foundation note* Diagnosis Cervicalgia- Primary documented in this encounter [facility] note* Diagnosis Spondylosis without myelopathy or radiculopathy, cervical region- Primary Neck pain Cervicalgia documented in this encounter [facility] note* Diagnosis Spondylosis without myelopathy or radiculopathy, cervical region- Primary Neck pain Cervicalgia Cervicalgia Chronic left shoulder pain Pain in joint, shoulder region Left shoulder pain, unspecified chronicity documented in this encounter [facility] note* Diagnosis Nicotine dependence, uncomplicated, unspecified nicotine product type- Primary Chronic obstructive pulmonary disease, unspecified COPD type ([facility]) documented in this encounter [facility] note* Diagnosis Spondylosis without myelopathy or radiculopathy, cervical region- Primary Neck pain Cervicalgia Cervicalgia Chronic left shoulder pain Pain in joint, shoulder region Left shoulder pain, unspecified chronicity documented in this encounter [facility] note* Diagnosis Spondylosis without myelopathy or radiculopathy, cervical region- Primary Neck pain Cervicalgia Cervicalgia Chronic left shoulder pain Pain in joint, shoulder region Left shoulder pain, unspecified chronicity documented in this encounter [facility] noteNo [employer]NoImmun[employer] Other Evaluation note* Diagnosis Onset Date Resolution Status Severe chronic obstructive pulmonary disease acute [facility] Work Phone: evaluation noteNo assessment information available [facility] Work Phone: evaluation note* Diagnosis Onset Date Resolution Status Chronic systolic congestive heart failure acute Severe chronic obstructive pulmonary disease acute Unspecified atrial flutter a cute Severe chronic obstructive pulmonary disease acute Unspecified atrial flutter a cute [facility] Work Phone: Evaluation note* Diagnosis Onset Date Resolution Status Admit Date Severe chronic obstructive pulmonary disease acute July 07, 2 025 10:54am Tobacco use disorder acute Aug2024 10:54am Unspecified atrial flutter acute July 07, 2025 10:54am [facility] Work Phone: Reason for referral (narrative)No reason for referral information availableDetwiler Memorial Hospital Work Phone: Rehqne for visit Narrative* Consultation (Routine) - Authorized Specialty Diagnoses / Procedures Referred By Kenny glover Referred To Contact Physical Therapy Diagnoses Pain in left shoulder Cervicalgia Jasiel Ac MD [address] [place] [address] [facility] Physical Therapy [address] [address] Referral ID Status Reason Start Date Expiration Date Visits Requested Visits Authorized [id number] Authorized Specialty Services Required 01/15/2022 07/14/2022 1 8 [facility] HospitalReason for visit Narrative* Consultation (Routine) - Authorized Specialty Diagnoses / Procedures Referred By Contac t Referred To Contact Physical Therapy Diagnoses Spondylosis without myelopathy or radiculopathy, cervical region Hunter Cortes, [address] [place] [address] [facility] Physical Therapy [address] [facility] [address] [place] [address] Referral ID Status Reason Start Date Expiration Date Visits Requested Visits Authorized [id number] Authorized Specialty Services Required 04/07/2023 1 8 [facility] Summary Purpose Family History Relationship Condition Age at Onset Recorded Date/T braden father Unknown Diabetes mellitus Unknown Not Specified History of stroke Unknown Unknown Relationship Condition Age at Onset Recorded Date/T braden father Unknown Diabetes mellitus Unknown mother History of stroke Unknown Unknown Advance Directives Documents on File Type Date Recorded 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) Rhonda Kaiser MD [address] [address] Referral ID Status Reason Start Date Expiration Date Visits Re quested Visits Authorized [id number] Closed 1 1 Specialty Diagnoses / Procedures Referred By Contac t Referred To Contact Radiology Diagnoses Nicotine dependence, uncomplicated, unspecified nicotine product type Procedures CT Lung Screening Rhonda Kaiser MD [address] [address] [facility] Referral ID Status Reason Start Date Expiration Date V isits Requested Visits Authorized [id number] Authorized 11/14/2022 05/13/2023 1 1 Reason *Waiting for appt Establish for COPD - moved here from [place] Diagnosis 1 Chronic bronchitis, unspecified chronic bronchitis type (J42) Referral Organization [facility] Referring Provider First Name Shanell Referring Provider Last Name Kiara Referring Provider Specialty Family Medi cine Referred Organization [facility] Pulmonary Dise ase Referred Provider Tima Osorio Referred Address [address] [place] [address],[facility] [address],[place], [place],[address] Referred Provider Specialty Pulmonary Di seases Referral [...] disease Chief Complaint Ref: Dr Craig- Copd De Follow Up j44.9 Chief Complaint 4 MONTH CHECK UP 3 month f/u LDCT Reason for Visit Chronic systolic con gestive heart failure Severe chronic obstructive pulmonary disease Unspecified atrial flutter Severe chronic obstructive pulmonary disease Unspecified atrial flutter Chief Complaint Admit Date Amb Documentation October 18, 2024 1 0:18am CC Adult Risk Stratification October 202023 1:15pm [facility]H:COPD-HIGH RISK October 22, 2024 11:01am f17.200 December 28, 2024 7:53am Reason for Visit Admit Date Screening PSA (prostate specific antigen ) October 22, 2024 11:01am Severe chronic obstructive pulmonary dis ease October 22, 2024 11:01am UTI (urinary tract infection) October 102023 11:01am Chief Complaint Admit Date Amb Documentation October 18, 2024 1 0:18am CC Adult Risk Stratification October 202023 1:15pm TBH:COPD-HIGH RISK October 22, 2024 11:01am f17.200 December 28, 2024 7:53am wellness December 29, 2024 10:09am Reason for Visit Admit Date Screening PSA (prostate specific antigen ) October 22, 2024 11:01am Severe chronic obstructive pulmonary dis ease October 22, 2024 11:01am UTI (urinary tract infection) October 102023 11:01am Elevated glucose level December 29 10:09am Chief Complaint Admit Date Amb Documentation October 18, 2024 1 0:18am CC Adult Risk Stratification October 202023 1:15pm TBH:COPD-HIGH RISK October 22, 2024 11:01am f17.200 December 28, 2024 7:53am wellness December 29, 2024 10:09am CEA: 6 mo f/u COPD,CT January 06 10:51am Reason for Visit Admit Date Screening PSA (prostate specific antigen ) October 22, 2024 11:01am Severe chronic obstructive pulmonary dis ease October 22, 2024 11:01am UTI (urinary tract infection) October 102023 11:01am Elevated glucose level December 29 10:09am Medicare annual wellness visit, subseque nt December 29, 2024 10:09am Severe chronic obstructive pulmonary dis ease December 29, 2024 10:09am Severe chronic obstructive pulmonary dis ease January 06, 2025 10:51am Tobacco use disorder January 06, 2025 10:51am Unspecified atrial flutter December 10:51am Chief Complaint Admit Date CEA: 6 mo f/u COPD July 07, 2025 10 :54am Reason for Visit Admit Date Severe chronic obstructive pulmonary dis ease July 07, 2025 10:54am Tobacco use disorder July 07, 2025 1 0:54am Unspecified atrial flutter July 07, 2025 10:54am Additional Source Comments (unrecognized sect ion and content) No Status Records FoundNo Status Records FoundNo Status Records FoundNo Status Records FoundNo Status Records FoundNo Status Records FoundNo Status Records Found INFORMATION SOURCE (unrecogn ized section and content) DATE CREATED AUTHOR 07/13/2021 [facility] DATE CREATED AUTHOR AUTHOR'S ORGANIZ ATION 11/25/2022 [facility] DATE CREATED AUTHOR AUTHOR'S ORGANIZ ATION 01/18/2023 [facility] DATE CREATED AUTHOR AUTHOR'S ORGANIZ ATION 03/04/2023 [facility] DATE CREATED AUTHOR AUTHOR'S ORGANIZ ATION 02/05/2024 [facility] DATE CREATED AUTHOR AUTHOR'S ORGANIZ ATION 01/03/2025 [facility] DATE CREATED AUTHOR AUTHOR'S ORGANIZ ATION 06/15/2025 [facility] Care Teams (unrecognized sec tion and content) Team Status: Active Member Role Status Dates Shanell Craig MD Primary Care Provider Active Team Status: Inactive Member Role Status Dates Shanell Craig MD Primary Care Provider Active Start: July 07, 2025 End: July 07, 2025 Tima Osorio MD Attending Provider Active Start: July 07, 2025 End: July 07, 2025 Team Status: Active Member Role Status Dates Shanell Craig MD Primary Care Provider Active Team Status: Active Member Role Status Dates Shanell Craig MD Primary Care Provider Active Start: October 17, 2024 Michael Vigil DO Attending Provider Active S tart: October 17, 2024 Team Status: Active Member Role Status Dates Shanell Craig MD Primary Care Provider Active Start: October 17, 2024 Wilber Nieves DO Attending Provider Active Sta rt: October 17, 2024 Team Status: Active Member Role Status Dates Shanell Craig MD Primary Care Provider Active Start: October 18, 2024 Elle Santoyo MD Attending Provider Active Sta rt: October 18, 2024 Team Status: Active Member Role Status Dates Shanell Craig MD Primary Care Provider Active Start: October 18, 2024 Dominique Hidalgo CMA Attending Provider Active Start: October 18, 2024 Team Status: Active Member Role Status Dates Shanell Craig MD Primary Care Provide r, Attending Provider Active Start: October 20, 2024 Team Status: Inactive Member Role Status Dates Shanell Craig MD Primary Care Provide r, Attending Provider Active Start: October 22, 2024 End: October 22, 2024 Team Status: Active Member Role Status Dates Shanell Criag MD Primary Care Provide r, Attending Provider Active Start: October 29, 2024 Team Status: Inactive Member Role Status Dates Shanell Craig MD Primary Care Provider Active Start: December 28, 2024 End: December 28, 2024 Tima Osorio MD Attending Provider Active Start: December 28, 2024 End: December 28, 2024 Leadership Development Consultant Relationship Specialty Start Date End Date Elle Cortes MD [address] [address] PCP - General Internal Medicine 10/18/21 Leadership Development Consultant Relationship Specialty Start Date End Date Elle Cortes MD [address] [address] PCP - General Internal Medicine 10/18/21 Leadership Development Consultant Relationship Specialty Start Date End Date Elle Cortes MD [address] [address] PCP - General Internal Medicine 10/18/21 Leadership Development Consultant Relationship Specialty Start Date End Date Elle Cortes MD [address] [address] PCP - General Internal Medicine 10/18/21 Leadership Development Consultant Relationship Specialty Start Date End Date Elle Cortes MD [address] [address] PCP - General Internal Medicine 10/18/21 Leadership Development Consultant Relationship Specialty Start Date End Date Elle Cortes MD [address] [address] PCP - General Internal Medicine 10/18/21 Leadership Development Consultant Relationship Specialty Start Date End Date Elle Cortes MD [address] [address] PCP - General Internal Medicine 10/18/21 Team Status: Inactive Member Role Status Dates Irma Ontiveros MD Attending Provider Active Star t: November 27, 2023 End: November 27, 2023 Shanell Craig MD Primary Care Provider Active Start: November 27, 2023 End: November 27, 2023 Team Status: Active Member Role Status Dates Shanell Craig MD Primary Care Provide r, Attending [...] May 18, 2024 End: May 18, 2024 Team Status: Inactive Member Role Status Narda Craig MD Primary Care Provide r, Attending Provider Active Start: December 29, 2024 End: December 29, 2024 Team Status: Inactive Member Role Status Narda Craig MD Primary Care Provider Active Start: January 06, 2025 End: January 06, 2025 Tima Osorio MD Attending Provider Active Start: January 06, 2025 End: January 06, 2025 Team Status: Inactive Member Role Status Narda Craig MD Primary Care Provider Active Start: July 07, 2025 End: July 07, 2025 Tima Osorio MD Attending Provider Active Start: July 07, 2025 End: July 07, 2025 Ordered Prescriptions (unrec ognized section and content) [...] 11/26/2022 ipratropium-albuteroL (DUONEB) 0.5-2.5 mg/3 mL nebulizer solutionIndications:Dna Sequencing Associate carmen obstructive pulmonary disease, unspecified COPD type [...] Dispensed Refills Start Date End Da te jfuhniorydj-mktcoyluqapt-fa lanterol (Trelegy Ellipta) 200-62.5-25 mcg inhaler Inhale [...] BE BASED ON THE PRIMARY CLINICAL RECORDS. [facility]. provides no warranty or guarantee of the accuracy or completeness of information in this document.
[2025-08-17 11:16] LABS: Hemoglobin 16.0 g/dL (14.0-18.0)
--- OUTSIDE RECORDS SUMMARY | 2025-08-23 11:08 | XMS_ITS | Clinical Summary ---
Author Organization [facility] Address [address] [id number] Care Team Providers Care Sustainable Communities Designer Name Role Phone Unavailable Primary Care Provider Unavailabl e Social History Tobacco Use Types Packs/Day Years Used Date Smoking Tobacco: Never Assessed Sex and Gender Information Value Date Recorded Sex Assigned at Not on file Legal Sex Male 12:21 AM EDT Gender Identity Not on file Sexual Orientation Not on file Plan of Treatment Not on file Insurance [employer] CHOICE POS/POSII/PREMIER CARE/PREMIER CARE PLUS
--- OUTSIDE RECORDS SUMMARY | 2025-08-23 11:08 | XMS_ITS | Encounter Summary ---
Author Organization [facility] Address [address] [place] [address] Care Team Providers Care Supervisor Car Installations Name Role Phone Shanell Craig MD Primary Care Provider [phone] Encounter Details Date Type Department Care Team (Late st Contact Info) Description 06/01/2025 Orders Only [facility] [address] [place] [phone] Alex Deluna MD [address] [place] [address] Social History Tobacco Use Types Packs/Day Years Used Date Smoking Tobacco: Every Day Cigarettes 0.5 45.8 Started: 11/10/1979 Smokeless Tobacco: Never Alcohol Use Standard Drinks/Week Comments Not Currently 0 (1 standard drink = 0.6 oz pur e alcohol) Humiliation, Afraid, Rape, and Kick questionnair e [...] and heating? Not hard at all 10/15/2023 [place] Safety & Environment Answer Date Rec orded [...] place to sleep or slept in a chcf (including now)? No 10/15/2023 Hunger Vital Sign Answer Date Recorded Within the past 12 months, y ou worried that your food would run out before you got the money to buy more. Never true 10/15/20 Ran Out of Food in the Last Year Not on file 10/15/2023 Sex and Gender Information Value Date Recorded Sex Assigned at Male 01/21/2024 12:25 PM EDT Legal Sex Male 11:49 AM EST Gender Identity Male 01/21/2024 12:25 PM EDT Sexual Orientation Heterosexual or Straight 01/08 12:25 PM EDT documented as of this encounter Plan of Treatment Not on file documented as of this encounter Procedures Procedure Name Priority Date/Time Associated Diagnosis Comments CARDIAC DEVICE CHECK - REMOTE - LOOP RECORDER (ILR) Routine 06/01/2025 12:00 AM EDT documented in this encounter Results * Cardiac device check - Remote loop recorder (ILR) (06/01/2025 12:00 AM EDT) Anatomical Region Laterality Modality Other 06/01/2025 Alex Deluna MD CV IMPLANTABLE CARDIAC DEVICE PROCEDURES Final Result documented in this encounter Visit Diagnoses Not on filedocumented in this encounter Care Teams Supervisor Car Installations Relationship Specialty Start Date End Date Shanell Craig MD [address] [facility] PCP - General 10/16/23 documented as of this encounter
--- OUTSIDE RECORDS SUMMARY | 2025-08-23 11:08 | XMS_ITS | Clinical Summary ---
Author Organization [facility] Address [address] [place] [address] Care Team Providers Care Chemist Helper Name Role Phone Shanell Craig MD Primary Care Provider [phone] Allergies Active Allergy Reactions Criticality Noted Date Comments Adenosine Anaphylaxis High 10/15/2023 Latex Shortness of breath High 10/15/2023 Medications albuterol 90 mcg/actuation inhaler Inhale 1 puff in the morning. Active ipratropium-albute roL (Duo-Neb) 0.5-2.5 mg/3 mL nebulizer solution Take 3 mL by nebulization in the morning and at bedtime. 2.5mg base Active montelukast (Singulair) 10 mg tablet Take 10 mg by mouth at bedtime. Active apixaban (Eliquis) 5 mg tabletIndications: Chronic systolic congestive heart failure (CMS/HCC) Take 1 tablet (5 mg) by mouth in the morning and at bedtime. 180 tablet 3 10/22/20 23 Active Additional Information Patient not taking.Reported on 08/16/2025 nicotine (Nicoderm CQ) 14 mg/24 hr patchIndications:T obacco abuse Place 1 patch on the skin 1 (one) time each day at the same time. Apply 14mg patch daily x6 weeks then 7mg patch daily x 2 weeks; remove old patch before applying new patch; can repeat if needed 45 patch 3 10/22/20 23 Active Additional Information Patient not taking.Reported on 08/16/2025 dapagliflozin propanediol (Farxiga) 10 mgIndications:hear t failure Take 1 tablet (10 mg) by mouth in the morning. 90 tablet 3 10/22/20 23 Active Additional Information Patient not taking.Reported on 08/16/2025 metoprolol succinate XL (Toprol-XL) 25 mg 24 hr tabletIndications: Chronic systolic congestive heart failure (CMS/HCC) Take 1 tablet (25 mg) by mouth in the morning. Do not crush or chew. 90 tablet 3 10/22/20 23 Active Additional Information Patient not taking.Reported on 08/16/2025 lisinopril 5 mg tabletIndications: Acute systolic heart failure (CMS/HCC) Take 1 tablet (5 mg) by mouth in the morning. 90 tablet 3 10/22/20 23 Active Additional Information Patient not taking.Reported on 08/16/2025 atorvastatin (Lipitor) 10 mg tabletIndications: Hyperlipidemia, unspecified hyperlipidemia type Take 1 tablet (10 mg) by mouth at bedtime. 90 tablet 3 12/16/19 24 Active Additional Information Patient not taking.Reported on 08/16/2025 fluticasone-umecli din-vilanter (Trelegy Ellipta) 100-62.5-25 mcg blister with device Inhale. Active lisinopril 5 mg tabletIndications: Benign hypertensive heart disease with heart failure (CMS/HCC) Take 1 tablet (5 mg) by mouth once daily as directed. 90 tablet 3 12/31/19 25 026 Active Active Problems Problem Noted Date Diagnosed Date Chronic systolic congestive heart failure 2023 S/P ablation of atrial flutter 02/20/2024 Assessment & Plan (02/20/2024 10:45 AM EDT): Remains in rhythm Atrial flutter by electrocardiogram 02/20/2024 Atrial flutter 12/16/2023 Assessment & Plan (02/20/2024 10:43 AM EDT): Currently in Sinus rhythm per ECG today Continue toprol 25 mg daily and eliuqis anticoagulation Pt states that he wants to proceed with loop implant as d/w Dr Castaneda Atrial fibrillation, unspecified type 10/15/2023 Acute pyelonephritis 10/15/2023 Systolic CHF 10/15/2023 Assessment & Plan (02/20/2024 10:45 AM EDT): [facility] Continue GDMT- continue toprol, farxiga, lisinopril, and will hold aldactone r/t noted rash- Diuretic therapy- none currently Monitor daily weights, I&O, fluid restriction 1.5-2L/day, renal function and electrolytes- COPD (chronic obstructive pulmonary disease) 04/2023 Encounters Date Type Department Care Team Description 08/16/2025 10:15 AM EDT Office Visit [facility] [address] [place] [id number] Abel Castaneda MD S/P ablation of atrial flutter (Primary Dx) 06/01/2025 7:30 AM EDT Ancillary Procedure [facility] [address] [place] [address] Awareness of heartbeats 06/01/2025 Orders Only [facility] [address] [place] [address] Alex Deluna MD from Last 3 Months Family History Medical History Relation Name Comments Stroke Mother Relation Name Status Comments Father Mother Social History Tobacco Use Types Packs/Day Years [...] place to sleep or slept in a intermediate (including now)? No 10/15/2023 Hunger Vital Sign [...] Heterosexual or Straight 01/08 12:25 PM EDT Last Filed Vital Signs Vital Sign Reading Time Taken Comments Blood Pressure 121/79 08/16/2025 10:32 AM EDT Pulse 96 08/16/2025 10:32 AM EDT Temperature 36.2 C (97.1 F) 10/18/2023 7:53 AM EST Respiratory Rate 14 03/17/2024 12:04 PM EDT Oxygen Saturation 97% 08/16/2025 10:32 AM EDT Inhaled Oxygen Concentration - - Weight 78.5 kg (173 lb) 08/16/2025 10:32 AM EDT Height 180.3 cm (5' 11 ) 08/16/2025 10:32 AM EDT Body Mass Index 24.13 08/16/2025 10:32 AM EDT Plan of Treatment Health Maintenance Due Date Last Done Comments CT Colonography 1955 Colonoscopy 1955 Medicare Annual Wellness (AWV) 1955 Sigmoidoscopy 1955 Depression Screening 1967 Zoster Vaccines (1 of 2) 2005 Fall Risk Screening 2020 Adult Tetanus 02/27/2021 02/27/2011, 12/30/2003 FOBT 10/31/2022 10/31/2021 FIT 01/28/2024 01/27/2023 COVID-19 Vaccine ( season) 2025 10/25/2021, 02/07/2021, 01/10/2021 Influenza Vaccine (#1) 2025 , 09/12/2022, 09/04/2021, Additional history exists Colorectal Cancer Screening 01/27/2026 FIT-DNA 01/27/2026 01/27/2023 Pneumococcal Vaccine: 50+ Years Completed 08/16/2020, 06/21/2015, 07/15/2012 HIB Vaccines Aged Out No longer eligi ble based on patient's age to complete this topic HPV Vaccines Aged Out No longer eligi ble based on patient's age to complete this topic IPV Vaccines Aged Out No longer eligi ble based on patient's age to complete this topic Meningococcal B Vaccine Aged Out No l onger eligible based on patient's age to complete this topic Meningococcal Vaccine Aged Out No david bessy eligible based on patient's age to complete this topic Rotavirus Vaccines Aged Out No longer eligible based on patient's age to complete this topic Medical Devices Implanted Type Area Data Analytics Specialist Device Identifier Shelf Expiration Date Model / Serial / Lot Monitor,Jenni ronKishan,[employer]+[facility] - [id number] - [id number] Implanted:Qty: 1 on 03/17/2024 by Abel Castaneda MD at [facility] Implantable Loop Recorder Yillio 08/14/2025 [id number] / [id number] / Procedures Procedure Name Priority Date/Time Associated Diagnosis Comments CARDIAC DEVICE CHECK CHECK - REMOTE Routine 06/13/2025 10:51 AM EDT Awareness of heartbeats CARDIAC DEVICE CHECK - REMOTE - LOOP RECORDER (ILR) Routine 06/01/2025 12:00 AM EDT from Last 3 Months Results * CARDIAC DEVICE CHECK - REMOTE - LOOP RECORDER (ILR) (06/13/2025 10:51 AM EDT) us Neto Chavez MD CV IMPLANTABLE CARDIAC DEVICE [place] OCEDURES Final Result CPACS * Cardiac device check - Remote loop recorder (ILR) (06/01/2025 12:00 AM EDT) Anatomical Region Laterality Modality Other 06/01/2025 us Alex Deluna MD CV IMPLANTABLE CARDIAC DEVICE PROCEDURES Final Result from Last 3 Months Insurance [employer] Advance Directives * Full Code (Latest Code Status on File) Date Activated Date Inactivated Comments 01/21/2024 2:26 PM 01/21/2024 7:22 PM * Full Code Date Activated Date Inactivated Comments 10/15/2023 7:11 PM 10/18/2023 3:04 PM Care Teams Chemist Helper Relationship Specialty Start Date End Date Shanell Craig MD [address] PCP - General 10/16/23
--- OUTSIDE RECORDS SUMMARY | 2025-08-23 11:08 | XMS_ITS | Clinical Summary ---
Author Organization [facility] Address [address] [place] [id number] Care Team Providers Care Factory Focus Technician Name Role Phone Donis Xavier MD Unavailable J Luis Collins MD Primary Care Provider [phone] Social History Tobacco Use Types Packs/Day Years Used Date Smoking Tobacco: Never Assessed Sex and Gender Information Value Date Recorded Sex Assigned at Not on file Legal Sex Male 11:32 AM EST Gender Identity Not on file Sexual Orientation Not on file Plan of Treatment Health Maintenance Due Date Last Done Comments HEPATITIS C VIRUS SCREENING 1955 TETANUS 1955 TDAP (ADULT) 1974 LIPID SCREENING 1995 COLORECTAL CANCER SCREENING DISCUSSION 2000 ZOSTER (SHINGLES) VACCINE (1 of 2) 2005 PNEUMOCOCCAL VACCINE SERIES (2 of 2 - PCV20 or PCV21) 06/21/2016 06/21/2015 ABDOMINAL AORTIC ANEURYSM HIGH RISK SCREEN 2020 COVID-19 VACCINE ( season) 2025 INFLUENZA VACCINE (#1) 2025 8, 08/26/2016, 08/28/2015, Additional history exists RSV VACCINE (1 - 1-dose 75+ series) 2030 HEP B VACCINE Aged Out No longer keven orosco based on patient's age to complete this topic Insurance [employer] Care Teams Factory Focus Technician Relationship Specialty Start Date End Date J Luis Collins MD PCP - General Internal Medicine 07/05/19 Donis Xavier MD Referring Provider Otolaryngology 07/05/19
--- OUTSIDE RECORDS SUMMARY | 2025-08-23 11:12 | XMS_ITS | CCD ---
Author Organization [facility] Care Team Providers Care Manager Sales And Marketing Name Role Phone Sophia CEBALLOS, Elle Knowles Primary Care Provider NOBLET JENNI, JENNI Attending [...] FOSSELMAN, ELLE D Primary Care Unavailable TIANA BROWN~[id number], TIANA BROWN Attending Unavailable JOSHUA, NEELAY S Referring Unavailable FOSSELMAN, ELLE D Primary Care Unavailable STORM VALDES Attending Unavailabl e JOSHUA, NEELAY S Referring Unavailable FOSSELMAN, ELLE D Primary Care Unavailable STORM VALDES Attending Unavailabl e JOSHUA, NEELAY S Referring Unavailable FOSSELMAN, ELLE D Primary Care Unavailable TIANA BROWN~[id number], TIANA KALIE Attending Unavailable SINAN LEWIS Referring Unavailable ELLE CORTES Primary Care Unavailable AVA GODFREY Attending Unavailable ELLE CORTES Primary Care Unavailable Shanell Craig Unavailable Irma Ontiveros Unavailable Tima Osorio Unavailable ELLE CORTES Attending Unavailable JOSELYNMANELLE Attending Unavailable JOSELYNMANELLE Attending Unavailable JOSELYNMANELLE Attending Unavailable ELLE CORTES Attending Unavailable ELLE CORTES Attending Unavailable MD Irma Ontiveros Attending Provider MD Shanell Craig Primary Care Provider MD Irma Ontiveros Attending Provider MD Shanell Craig Primary Care Provider Shanell Craig MD Primary Care Provider Tima Osorio MD Attending Provider Tima Osorio Attending Unavaila Tima Aparicio Admitting Unavaila Shanell Singh Primary Care Unavailable Shanell Craig MD Primary Care Provider Tima Osorio MD Attending Provider LUIS CASTANEDA Referring Unavailable LEEROYMANOJ Attending Unavailable LUIS CASTANEDA Attending Unavailable LUIS CASTANEDA Referring Unavailable LUIS CASTANEDA Referring Unavailable IDRISRUTH Referring Unavailable LUIS CASTANEDA Referring Unavailable REGINALDLUIS Leyva Referring Unavailable REGINALDLUIS Leyva Referring Unavailable LUIS CASTANEDA Referring Unavailable Allergies Allergy Classification Reported Allergen(s) Allergy Type Date of Onset Reaction(s) Facility (20 sources) Adenosine; Translations: [ADENOSINE] Drug Allergy 1 Shortness of breath, anaphylaxis [facility] (20 sources) Latex; Translations: [LATEX] Drug Allergy 1 Shortness of breath [facility] (11 sources) Ibuprofen; Translations: [IBUPROFEN] Drug Allergy 1 Shortness of breath [facility] (11 sources) valsartan; Translations: [VALSARTAN] Drug Allergy 1 [facility] (1 source) ALLERGIES NOT ON FILE; Translations: [ALLERGIES NOT ON FILE] Propensity to adverse reactions (disorder) [facility] Repository (1 source) Adenosine Drug Allergy 5 [facility] Repository (1 source) Latex Drug allergy (disorder) 5 [facility] Repository Medications Current Medications Medication Drug Class(es) [...] hr tablet Take by mouth. 0 Active [id number] 200 actuat albuterol 0.09 mg/actuat metered dose [...] 3 ML INHALATION Every 6 hours 180 30 November 19, 2024 9:55am DX J44.9 COPD [...] 1 capsule Orally Once a day Active Jkelxqjfovm-Ljayarybi-X ilanter (11 sources) Start: 11-19-2024 Ywxidtqqcao-Onfljhlhh-Gi lanter (Trelegy Ellipta) 200-62.5-25 mcg blister with device Active 1 INH INHALATION Daily November 19, 2024 9:55am Complies with drug therapy Start: 11-19-2024 Fluticasone-Um eclidin-Vilanter (Trelegy Ellipta) 200-62.5-25 mcg blister with device Active 1 INH INHALATION Daily November 19, 2024 8:55am Start: 01-06-2024 End: 11-19-2024 Kfvlibhiglu-Pvbzfiryv-Wdhjmz er (Trelegy Ellipta) 200-62.5-25 mcg blister with device Discontinued 1 INH INHALATION Daily January 06, 2024 1:00am November 19, 2024 9:57am Start: 01-06-2024 End: 11-19-2024 Gxasdgfauxt-Cdoyjvgxy-Urefpp er (Trelegy Ellipta) 200-62.5-25 mcg blister with device Discontinued 1 INH INHALATION Daily January 06, 2024 12:00am November 19, 2024 8:57am Start: 01-06-2024 Fluticasone-Um eclidin-Vilanter (Trelegy Ellipta) 200-62.5-25 mcg blister with device Active 1 INH INHALATION Daily January 06, 2024 1:00am mztzbocspru-hjvusnyfvpij-xnw anterol (Trelegy Ellipta) 200-62.5-25 mcg inhaler (20 sources) Start: 11-15-2022 take 1 puff(s) by mouth once daily vcyuwxgcbmp-vixyuaqinhji-ugqfavivfm (Trelegy Ellipta) 200-62.5-25 mcg inhaler Inhale 1 puff (200 mcg total) by mouth 1 (one) time each day. 60 each 4 11/15/2022 Active Start: 10-10-2022 take 1 puff(s) by mouth once daily xlzgkrjfzjb-ofhvapuurzfd-fmtxwdsruo (Raphael legy Ellipta) 200-62.5-25 mcg inhaler Inhale 1 puff by mouth once daily 60 each 4 10/10/2022 Active Start: 05-30-2022 take 1 puff(s) by mouth once daily xszbgyqqfba-esplhuybatau-lnucrsljoh (Raphael legy Ellipta) 200-62.5-25 mcg inhaler Inhale 1 puff by mouth daily 60 each 4 05/30/2022 Active Start: 04-18-2022 take 1 puff(s) by mouth once daily ahskmlihcej-lxijcktepfbd-ceiszkbkqj (Raphael legy Ellipta) 200-62.5-25 mcg inhaler Inhale 1 puff by mouth daily 60 each 4 04/18/2022 Active Start: 12-27-2021 End: 11-15-2022 take 1 puff(s) by mouth once daily ggxaktogfge-llqsbfgeonqe-vbpizyvwci (Raphael legy Ellipta) 200-62.5-25 mcg inhaler Inhale 1 puff (200 mcg total) by mouth 1 (one) time each day. 60 each 4 12/27/2021 11/15/2022 Discontinued (Reorder) Start: 12-27-2021 take 1 puff(s) by mouth once daily skplrkgadvc-ffkgxtrdbnre-uzvtjrgyca (Raphael legy Ellipta) 200-62.5-25 mcg inhaler Inhale 1 puff (200 mcg total) by mouth 1 (one) time each day. 60 each 4 12/27/2021 Active Start: 12-27-2021 take 1 puff(s) by inhalation once daily lupriqyhmcg-oaklsmvvfxel-jfjjjlfcka (Raphael legy Ellipta) 200-62.5-25 mcg inhaler Inhale [...] MG 1 tablet once a day Active Moody 3-Fbz-Ppu-Fish Oil (Fish Oil) 1,000 mg (120 mg-180 mg) capsule (7 sources) Start: 01-06-2024 End: 02-10-2024 take 1 capsule by mouth once daily Moody 0-Udb-Wrm-Fish Oil (Fish Oil) 1,000 mg (120 mg-180 mg) capsule Discontinued 1 CAP PO Daily January 06, 2024 12:00am February 10, 2024 2:42pm Start: 01-06-2024 End: 02-10-2024 take 1 capsule by mouth once daily Moody 9-Psc-Kit-Fish Oil (Fish Oil) 1,000 mg (120 mg-180 [...] Chronic obstructive pulmonary disease, unspecified COPD type (CMS/[facility]) Take 4 tablets (40 mg total) [...] mcg tablet Discontinued 500 MCG PO Daily 30 February 10, 2024 12:00am May 18, 2024 [...] sources) Atrial flutter; Translations: [Unspecified atrial flutter] Chronic Chronic obstructive pulmonary disease and bronchiectasis [...] dysrhythmias (2 sources) Palpitations; Translations: [Palpitations] Onset: 11-12-2024 Episodic Other circulatory disease (2 sources) Personal history of other diseases of the circulatory system; Translations: [Personal history of other diseases of the circulatory system] Onset: 02-20-2024 Episodic Residual codes; unclassified (2 sources) Other specified postprocedural states; Translations: [Other specified postprocedural states] Onset: 02-20-2024 Episodic Results Test Name Value Interpretation Reference Range Facility Office Visiton 08-16-2025 Follow-up visit [id number] YaimaAlejandro fuentes A 1955 M Date Provider Department Center 08/16/2025 LUIS TORRES [facility] Family History Problem Relation Age of Onset Stroke Mother Family Status - Relation Status Age at Mother Father Level of Service:08457 [place] OFFICE/OUTPATIENT ESTABLISHED LOW MDM 20 MIN Normal [facility] Orders Onlyon 03-31-2025 Orders Only [id number] Alejandro Maradiaga A 1955 M Date Provider Department Center 03/31/2025 LUIS TORRES [facility] Family History Problem Relation Age of Onset Stroke Mother Family Status - Relation Status Age at Mother Normal [facility] Office Visiton 12-31-2024 Follow-up visit [id number] Alejandro Maradiaga A 1955 M Date Provider Department Center 12/31/2024 [id number] [facility] Family History Problem Relation Age of Onset Stroke Mother Family Status - Relation Status Age at Mother Level of Service:01895 [place] OFFICE/OUTPATIENT ESTABLISHED MOD MDM 30 MIN Normal [facility] CT lung screeningon 12-28-19 CT lung screening [facility] Main [place] [address] [place], [place] [id number] CT Scan Report Signed Patient: Alejandro Maradiaga MR#: [id number] 530 : 1955 Acct:[id number] Age/Sex: 69 / M ADM Date: 12/28/24 Loc: [facility] Room: Type: [facility] Attending Dr: Tima Osorio MD Copies to: [...] Michael Seth M.D.12/28/2024 2:46 PM Dictation Location: [place] [address] Transcribed By: [facility] 12/28/24 1446 Dictated By: Michael Seth DO 12/28/24 1435 Signed By: 12/28/24 1446 Normal [facility] Laboratory - Chemistry and C hemistry - challengeon 10-29-2024 Bilirubin Ql (U) SMALL Abnormal NEGATIVE [facility] Glucose (U) [Mass/Vol] Negative NEGATIVE [facility] Ketones Ql (U) TRACE mg/dL Abnormal NEGATIVE [facility] pH (U) 6.0 [pH] 5.0-9.0 [facility] Specific gravity (U) [Rel density] >=1.030 Abnormal 1.005-1.025 [facility] Urobilinogen Qn (U) 1.0 {Maxine'U}/dL 0.2-1.0 [facility] Laboratory - Specimen inform ationon 10-29-2024 Appearance (U) CLEAR CLEAR [facility] Color (U) DK. YELLOW YELLOW [facility] Laboratory - Urinalysison Leukocyte esterase Test strip Ql (U) Negative NEGATIVE [facility] Nitrite Ql (U) Negative NEGATIVE [facility] Protein Ql (U) TRACE mg/dL NEG/TRACE [facility] No Panel Informationon 10-29 Prostate Specific Antigen Screen 0.70 ng/mL <=4.00 [facility] Urine Microscopic Review NO [facility] Urine Occult Blood Negative NEGATIVE [facility] Basophils Auto (Bld) [#/Vol] on 10-18-2024 Basophils (Bld) [#/Vol] Automated basophil count 0.0-0.1 [facility] Basophils/100 WBC Auto (Bld) on 10-18-2024 Basophils/100 WBC (Bld) Automated basophil % 0.2-2.0 [facility] Eosinophils/100 WBC Auto (Bl d)on 10-18-2024 Eosinophils/100 WBC (Bld) Automated eosinophil % Low 0.9-7.0 [facility] Erythrocyte distribution wid th Auto (RBC) [Ratio]on 10-18-2024 Erythrocyte distribution width (RBC) [Ratio] Erythrocyte distribution width [Ratio] by Automated count 11.0-15.0 [facility] Estimated glomerular filtrat ion rate (GFR) non- Americanon 10-18-2024 GFR/1.73 sq M.predicted among non-blacks MDRD (S/P/Bld) [Vol rate/Area] Estimated glomerular filtration rate (GFR) non- >=60 mL/min/1.73m 2 [facility] Hematocrit Auto (Bld) [Volum e fraction]on 10-18-2024 Hematocrit (Bld) [Volume fraction] Hematocrit [Volume Fraction] of Blood by Automated count Low 42.0-54.0 [facility] Hemoglobin [Mass/volume] in Bloodon 10-18-2024 Hemoglobin (Bld) [Mass/Vol] Hemoglobin [Mass/volume] in Blood 14.0-18.0 [facility] Laboratory - Chemistry and C hemistry - challengeon 10-18-2024 Calcium [Mass/Vol] 9.1 mg/dL 8.5-10.1 [facility] Chloride [Moles/Vol] 103 mmol/L 98-107 [facility] CO2 [Moles/Vol] 26.3 mmol/L 21.0-32.0 [facility] Creatinine [Mass/Vol] 0.87 mg/dL 0.70-1.30 [facility] GFR/1.73 sq M.predicted MDRD (S/P/Bld) [Vol rate/Area] mL/min/{1.73_m2} >=60 mL/min/1.73m 2 [facility] Glucose [Mass/Vol] 202 mg/dL High 74-106 [facility] Potassium [Moles/Vol] 4.3 mmol/L 3.5-5.1 [facility] Sodium [Moles/Vol] 138 mmol/L 136-145 [facility] Urea nitrogen [Mass/Vol] 14.0 mg/dL 7.0-18.0 [facility] Urea nitrogen/Creatinine [Mass ratio] 16.1 mg/mg [facility] Laboratory - Hematology and Cell countson 10-18-2024 Immature granulocytes/100 WBC (Bld) 1.1 % High 0.0-0.5 [facility] Leukocytes [#/volume] correc conchis for nucleated erythrocytes in Blood by Automated counon 10-18-2024 WBC corrected for nucl RBC Auto (Bld) [#/Vol] Leukocytes [#/volume] corrected for nucleated erythrocytes in Blood by Automated coun 4.0-11.0 [facility] Lymphocytes Auto (Bld) [#/Vo l]on 10-18-2024 Lymphocytes (Bld) [#/Vol] Lymphocytes [#/volume] in Blood by Automated count Low 1.2-3.8 [facility] Lymphocytes/100 WBC Auto (Bl d)on 10-18-2024 Lymphocytes/100 WBC (Bld) Lymphocytes/100 leukocytes in Blood by Automated count Low 20.5-60.0 [facility] MCH Auto (RBC) [Entitic mass ]on 10-18-2024 MCH (RBC) [Entitic mass] MCH [Entitic mass] by Automated count High 25.9-34.0 [facility] MCHC Auto (RBC) [Mass/Vol]on 10-18-2024 MCHC (RBC) [Mass/Vol] MCHC [Mass/volume] by Automated count High 29.9-35.2 [facility] MCV Auto (RBC) [Entitic vol] on 10-18-2024 MCV (RBC) [Entitic vol] MCV [Entitic volume] by Automated count High 80.0-94.0 [facility] Monocytes Auto (Bld) [#/Vol] on 10-18-2024 Monocytes (Bld) [#/Vol] Automated blood monocyte count Low 0.3-0.8 [facility] Monocytes/100 WBC Auto (Bld) on 10-18-2024 Monocytes/100 WBC (Bld) Automated monocyte % 1.7-12.0 [facility] Neutrophils Auto (Bld) [#/Vo l]on 10-18-2024 Neutrophils (Bld) [#/Vol] Neutrophils [#/volume] in Blood by Automated count 1.4-6.5 [facility] Neutrophils/100 WBC Auto (Bl d)on 10-18-2024 Neutrophils/100 WBC (Bld) Automated neutrophil % High 43.0-75.0 [facility] No Panel Informationon 10-18 Eosinophils # (Auto) 0.0 10 3/uL 0.0-0.7 [facility] Immature Granulocyte # (Auto) 0.07 10 3/uL High 0.00-0.03 [facility] Platelet mean volume Auto (B ld) [Entitic vol]on 10-18-2024 Platelet mean volume (Bld) [Entitic vol] Platelet mean volume [Entitic volume] in Blood by Automated count 9.5-13.5 [facility] Platelets Auto (Bld) [#/Vol] on 10-18-2024 Platelets (Bld) [#/Vol] Platelets [#/volume] in Blood by Automated count 150-450 [facility] RBC Auto (Bld) [#/Vol]on RBC (Bld) [#/Vol] Erythrocytes [#/volume] in Blood by Automated count Low 4.70-6.10 [facility] Serum or plasma anion gap de terminationon 10-18-2024 Anion gap [Moles/Vol] Serum or plasma an ion gap determination [facility] Basophils Auto (Bld) [#/Vol] on 10-17-2024 Basophils (Bld) [#/Vol] Automated basophil count 0.0-0.1 [facility] Basophils/100 WBC Auto (Bld) on 10-17-2024 Basophils/100 WBC (Bld) Automated basophil % 0.2-2.0 [facility] Eosinophils/100 WBC Auto (Bl d)on 10-17-2024 Eosinophils/100 WBC (Bld) Automated eosinophil % 0.9-7.0 [facility] Erythrocyte distribution wid th Auto (RBC) [Ratio]on 10-17-2024 Erythrocyte distribution width (RBC) [Ratio] Erythrocyte distribution width [Ratio] by Automated count 11.0-15.0 [facility] Estimated glomerular filtrat ion rate (GFR) non- Americanon 10-17-2024 GFR/1.73 sq M.predicted among non-blacks MDRD (S/P/Bld) [Vol rate/Area] Estimated glomerular filtration rate (GFR) non- >=60 mL/min/1.73m 2 [facility] Globulin Calc (S) [Mass/Vol] on 10-17-2024 Globulin (S) [Mass/Vol] Serum globulin measurement by calculation (mass/volume) [facility] Hematocrit Auto (Bld) [Volum e fraction]on 10-17-2024 Hematocrit (Bld) [Volume fraction] Hematocrit [Volume Fraction] of Blood by Automated count 42.0-54.0 [facility] Hemoglobin [Mass/volume] in Bloodon 10-17-2024 Hemoglobin (Bld) [Mass/Vol] Hemoglobin [Mass/volume] in Blood 14.0-18.0 [facility] Laboratory - Chemistry and C hemistry - challengeon 10-17-2024 Albumin [Mass/Vol] 3.8 g/dL 3.4-5.0 [facility] ALP [Catalytic activity/Vol] 129 U/L High 46-116 [facility] ALT [Catalytic activity/Vol] 24 U/L 16-63 [facility] AST [Catalytic activity/Vol] 22 U/L 15-37 [facility] Bilirubin [Mass/Vol] 1.3 mg/dL High 0.2-1.0 [facility] Bilirubin.direct [Mass/Vol] 0.4 mg/dL High 0.0-0.2 [facility] Calcium [Mass/Vol] 9.3 mg/dL 8.5-10.1 [facility] Chloride [Moles/Vol] 101 mmol/L 98-107 [facility] CO2 [Moles/Vol] 25.5 mmol/L 21.0-32.0 [facility] Creatinine [Mass/Vol] 0.89 mg/dL 0.70-1.30 [facility] GFR/1.73 sq M.predicted MDRD (S/P/Bld) [Vol rate/Area] mL/min/{1.73_m2} >=60 mL/min/1.73m 2 [facility] Glucose [Mass/Vol] 175 mg/dL High 74-106 [facility] Magnesium [Mass/Vol] 1.8 mg/dL 1.8-2.4 [facility] Natriuretic peptide B (Bld) [Mass/Vol] 228.0 pg/mL <=900.0 [facility] Potassium [Moles/Vol] 3.8 mmol/L 3.5-5.1 [facility] Protein [Mass/Vol] 7.8 g/dL 6.4-8.2 [facility] Sodium [Moles/Vol] 137 mmol/L 136-145 [facility] Urea nitrogen [Mass/Vol] 11.0 mg/dL 7.0-18.0 [facility] Urea nitrogen/Creatinine [Mass ratio] 12.4 mg/mg [facility] Laboratory - Hematology and Cell countson 10-17-2024 Immature granulocytes/100 WBC (Bld) 0.6 % High 0.0-0.5 [facility] Laboratory - Microbiology an d Antimicrobial susceptibilityon 10-17-2024 SARS-CoV-2 (COVID-19) RNA RANDY+probe Ql (Unsp spec) Negative NEGATIVE [facility] Comment on above: This test has not [...] erythrocytes in Blood by Automated coun 4.0-11.0 [facility] Lymphocytes Auto (Bld) [#/Vo l]on 10-17-2024 Lymphocytes (Bld) [#/Vol] Lymphocytes [#/volume] in Blood by Automated count 1.2-3.8 [facility] Lymphocytes/100 WBC Auto (Bl d)on 10-17-2024 Lymphocytes/100 WBC (Bld) Lymphocytes/100 leukocytes in Blood by Automated count 20.5-60.0 [facility] MCH Auto (RBC) [Entitic mass ]on 10-17-2024 MCH (RBC) [Entitic mass] MCH [Entitic mass] by Automated count High 25.9-34.0 [facility] MCHC Auto (RBC) [Mass/Vol]on 10-17-2024 MCHC (RBC) [Mass/Vol] MCHC [Mass/volume] by Automated count 29.9-35.2 [facility] MCV Auto (RBC) [Entitic vol] on 10-17-2024 MCV (RBC) [Entitic vol] MCV [Entitic volume] by Automated count High 80.0-94.0 [facility] Monocytes Auto (Bld) [#/Vol] on 10-17-2024 Monocytes (Bld) [#/Vol] Automated blood monocyte count High 0.3-0.8 [facility] Monocytes/100 WBC Auto (Bld) on 10-17-2024 Monocytes/100 WBC (Bld) Automated monocyte % 1.7-12.0 [facility] Neutrophils Auto (Bld) [#/Vo l]on 10-17-2024 Neutrophils (Bld) [#/Vol] Neutrophils [#/volume] in Blood by Automated count 1.4-6.5 [facility] Neutrophils/100 WBC Auto (Bl d)on 10-17-2024 Neutrophils/100 WBC (Bld) Automated neutrophil % 43.0-75.0 [facility] No Panel Informationon 10-17 Bedside Influenza Type A Antigen Negative [facility] Comment on above: Negative for Flu A p rotein antigen. Infection due to Flu Acannot be ruled out. Flu A antigen in the sample may bebelow the detection limit of the test. Bedside Influenza Type B Antigen Negative [facility] Comment on above: Negative for Flu B p rotein antigen. Infection due to Flu Bcannot be ruled out. Flu B antigen in the sample may bebelow the detection limit of the test. Eosinophils # (Auto) 0.6 10 3/uL 0.0-0.7 [facility] Immature Granulocyte # (Auto) 0.06 10 3/uL High 0.00-0.03 [facility] Troponin I High Sensitivity 7.9 pg/mL 4.0-76.1 [facility] Comment on above: CUT-OFF POINTS HAVE BEEN [...] volume] in Blood by Automated count 9.5-13.5 [facility] Platelets Auto (Bld) [#/Vol] on 10-17-2024 Platelets (Bld) [#/Vol] Platelets [#/volume] in Blood by Automated count 150-450 [facility] RBC Auto (Bld) [#/Vol]on RBC (Bld) [#/Vol] Erythrocytes [#/volume] in Blood by Automated count Low 4.70-6.10 [facility] Serum or plasma albumin/glob ulin mass ratioon 10-17-2024 Albumin/Globulin [Mass ratio] Serum or plasma albumin/globulin mass ratio [facility] Serum or plasma anion gap de terminationon 10-17-2024 Anion gap [Moles/Vol] Serum or plasma an ion gap determination [facility] Basophils Auto (Bld) [#/Vol] on 01-15-2024 Basophils (Bld) [#/Vol] 0.1 10 3/uL 0.0-0.1 [facility] Basophils/100 WBC Auto (Bld) on 01-15-2024 Basophils/100 WBC (Bld) 1.0 % 0.2-2.0 [facility] Eosinophils/100 WBC Auto (Bl d)on 01-15-2024 Eosinophils/100 WBC (Bld) 6.7 % 0.9-7.0 [facility] Erythrocyte distribution wid th Auto (RBC) [Ratio]on 01-15-2024 Erythrocyte distribution width (RBC) [Ratio] 13.7 % 11.0-15.0 [facility] Estimated glomerular filtrat ion rate (GFR) non- Americanon 01-15-2024 GFR/1.73 sq M.predicted among non-blacks MDRD (S/P/Bld) [Vol rate/Area] mL/min/{1.73_m2} >=60 [facility] Hematocrit Auto (Bld) [Volum e fraction]on 01-15-2024 Hematocrit (Bld) [Volume fraction] 42.8 % 42.0-54.0 [facility] Hemoglobin [Mass/volume] in Bloodon 01-15-2024 Hemoglobin (Bld) [Mass/Vol] 14.1 g/dL 14.0-18.0 [facility] Laboratory - Chemistry and C hemistry - challengeon 01-15-2024 Calcium [Mass/Vol] 9.1 mg/dL 8.5-10.1 [facility] Chloride [Moles/Vol] 98 mmol/L 98-107 [facility] CO2 [Moles/Vol] 26.6 mmol/L 21.0-32.0 [facility] Creatinine [Mass/Vol] 0.85 mg/dL 0.70-1.30 [facility] GFR/1.73 sq M.predicted MDRD (S/P/Bld) [Vol rate/Area] mL/min/{1.73_m2} >=60 [facility] Glucose [Mass/Vol] 173 mg/dL 74-106 [facility] Potassium [Moles/Vol] 4.2 mmol/L 3.5-5.1 [facility] Sodium [Moles/Vol] 136 mmol/L 136-145 [facility] Urea nitrogen [Mass/Vol] 15.0 mg/dL 7.0-18.0 [facility] Urea nitrogen/Creatinine [Mass ratio] 17.6 mg/mg [facility] Laboratory - Hematology and Cell countson 01-15-2024 Immature granulocytes/100 WBC (Bld) 0.5 % 0.0-0.5 [facility] Leukocytes [#/volume] correc conchis for nucleated erythrocytes in Blood by Automated counon 01-15-2024 WBC corrected for nucl RBC Auto (Bld) [#/Vol] 8.0 10 3/uL 4.0-11.0 [facility] Lymphocytes Auto (Bld) [#/Vo l]on 01-15-2024 Lymphocytes (Bld) [#/Vol] 2.7 10 3/uL 1.2-3.8 [facility] Lymphocytes/100 WBC Auto (Bl d)on 01-15-2024 Lymphocytes/100 WBC (Bld) 34.0 % 20.5-60.0 [facility] MCH Auto (RBC) [Entitic mass ]on 01-15-2024 MCH (RBC) [Entitic mass] 33.9 pg 25.9-34.0 [facility] MCHC Auto (RBC) [Mass/Vol]on 01-15-2024 MCHC (RBC) [Mass/Vol] 32.9 g/dL 29.9-35.2 [facility] MCV Auto (RBC) [Entitic vol] on 01-15-2024 MCV (RBC) [Entitic vol] 102.9 fL 80.0-94.0 [facility] Monocytes Auto (Bld) [#/Vol] on 01-15-2024 Monocytes (Bld) [#/Vol] 0.7 10 3/uL 0.3-0.8 [facility] Monocytes/100 WBC Auto (Bld) on 01-15-2024 Monocytes/100 WBC (Bld) 9.1 % 1.7-12.0 [facility] Neutrophils Auto (Bld) [#/Vo l]on 01-15-2024 Neutrophils (Bld) [#/Vol] 3.9 10 3/uL 1.4-6.5 [facility] Neutrophils/100 WBC Auto (Bl d)on 01-15-2024 Neutrophils/100 WBC (Bld) 48.7 % 43.0-75.0 [facility] No Panel Informationon 01-14 Eosinophils # (Auto) 0.5 10 3/uL 0.0-0.7 [facility] Immature Granulocyte # (Auto) 0.04 10 3/uL 0.00-0.03 [facility] Platelet mean volume Auto (B ld) [Entitic vol]on 01-15-2024 Platelet mean volume (Bld) [Entitic vol] 9.5 fL 9.5-13.5 [facility] Platelets Auto (Bld) [#/Vol] on 01-15-2024 Platelets (Bld) [#/Vol] 297 10 3/uL 150-450 [facility] RBC Auto (Bld) [#/Vol]on RBC (Bld) [#/Vol] 4.16 10 6/uL 4.70-6.10 [facility] Serum or plasma anion gap de terminationon 01-15-2024 Anion gap [Moles/Vol] 15.6 mmol/L [facility] CBC with differential (COPC) on 01-16-2023 BASO # 0.1 K CUMM Normal 0.0-0.2 [facility] Comment on above: Order Comment: Items in this order include: Comprehensive Metabolic Panel, Lipid Panel, Free T4, PSA (Screening Medicare Only), TSH, CBC with differential, Testing Performed By: [facility] [address] [place] [address] CLIA#:[id number] [address] Abbe Celeste, District Customs Director Performed By: #### C 4125, C408, C215, C47, C400, C8 #### [facility] [address] [facility] [address] [place] [address] Basophils/100 WBC (Bld) 1.1 % Normal 0.0-3.0 [facility] Comment on above: Order Comment: Items in this order include: Comprehensive Metabolic Panel, Lipid Panel, Free T4, PSA (Screening Medicare Only), TSH, CBC with differential, Testing Performed By: [facility] [address] [place] [address] CLIA#:[id number] [address] Abbe Celeste, District Customs Director Performed By: #### C 4125, C408, C215, C47, C400, C8 #### [facility] [address] [facility] [address] [place] [address] EOS # 0.7 K CUMM High 0.0-0.4 [facility] Comment on above: Order Comment: Items in this order include: Comprehensive Metabolic Panel, Lipid Panel, Free T4, PSA (Screening Medicare Only), TSH, CBC with differential, Testing Performed By: [facility] [address] [place] [address] CLIA#:[id number] Dr. Abbe Celeste, District Customs Director Performed By: #### C 4125, C408, C215, C47, C400, C8 #### [facility] [address] [facility] [address] [place] [address] Eosinophils/100 WBC (Bld) 9.5 % High 0.0-7.0 [facility] Comment on above: Order Comment: Items in this order include: Comprehensive Metabolic Panel, Lipid Panel, Free T4, PSA (Screening Medicare Only), TSH, CBC with differential, Testing Performed By: [facility] [address] [place] [address] CLIA#:[id number] Dr. Abbe Celeste, District Customs Director Performed By: #### C 4125, C408, C215, C47, C400, C8 #### [facility] [facility] [address] [place] [address] Erythrocyte distribution width (RBC) [Ratio] 13.4 % Normal 11.5-15.5 [facility] Comment on above: Order Comment: Items in this order include: Comprehensive Metabolic Panel, Lipid Panel, Free T4, PSA (Screening Medicare Only), TSH, CBC with differential, Testing Performed By: [facility] [address] [place] [address] CLIA#:[id number] Dr. Abbe Celeste, District Customs Director Performed By: #### C 4125, C408, C215, C47, C400, C8 #### [facility] [address] [facility] [address] [place] [address] Hematocrit (Bld) [Volume fraction] 45.6 % Normal 42.0-52.0 [facility] Comment on above: Order Comment: Items in this order include: Comprehensive Metabolic Panel, Lipid Panel, Free T4, PSA (Screening Medicare Only), TSH, CBC with differential, Testing Performed By: [facility] [address] [place] [address] CLIA#:[id number] [address]. Abbe Celeste, District Customs Director Performed By: #### C 4125, C408, C215, C47, C400, C8 #### [facility] [address] [facility] [address] [place] [address] Hemoglobin (Bld) [Mass/Vol] 15.9 g/dL Normal 13.5-18.0 [facility] Comment on above: Order Comment: Items in this order include: Comprehensive Metabolic Panel, Lipid Panel, Free T4, PSA (Screening Medicare Only), TSH, CBC with differential, Testing Performed By: [facility] [address] [place] [address] CLIA#:[id number] [address] Abbe Celeste, District Customs Director Performed By: #### C 4125, C408, C215, C47, C400, C8 #### [facility] [address] [place] [address] [address] [place] [address] ImmGrn # 0.0 K CUMM Normal 0.0-0.3 [facility] Comment on above: Order Comment: Items in this order include: Comprehensive Metabolic Panel, Lipid Panel, Free T4, PSA (Screening Medicare Only), TSH, CBC with differential, Testing Performed By: [facility] [address] [place] [address] CLIA#:[id number] [address] Abbe Celeste, District Customs Director Performed By: #### C 4125, C408, C215, C47, C400, C8 #### [facility] [address] [facility] [address] [place] [address] ImmGrn % 0.6 % Normal 0.0-3.0 [facility] Comment on above: Order Comment: Items in this order include: Comprehensive Metabolic Panel, Lipid Panel, Free T4, PSA (Screening Medicare Only), TSH, CBC with differential, Testing Performed By: [facility] [address] [place] [address] CLIA#:[id number] Dr. Abbe Celeste, District Customs Director Performed By: #### C 4125, C408, C215, C47, C400, C8 #### [facility] [address] [facility] [address] [place] [address] LYMPH # 2.7 K CUMM Normal 0.7-4.5 [facility] Comment on above: Order Comment: Items in this order include: Comprehensive Metabolic Panel, Lipid Panel, Free T4, PSA (Screening Medicare Only), TSH, CBC with differential, Testing Performed By: [facility] [address] [place] [address] CLIA#:[id number] Dr. Abbe Celeste, District Customs Director Performed By: #### C 4125, C408, C215, C47, C400, C8 #### [facility] [address] [facility] [address] [place] [address] Lymphocytes/100 WBC (Bld) 38.3 % Normal 14.0-46.0 [facility] Comment on above: Order Comment: Items in this order include: Comprehensive Metabolic Panel, Lipid Panel, Free T4, PSA (Screening Medicare Only), TSH, CBC with differential, Testing Performed By: [facility] [address] [place] [address] CLIA#:[id number] [address] Abbe Celeste, District Customs Director Performed By: #### C 4125, C408, C215, C47, C400, C8 #### [facility] [address] [facility] [address] [place] [address] MCH (RBC) [Entitic mass] 37.6 pg High 27.0-31.0 [facility] Comment on above: Order Comment: Items in this order include: Comprehensive Metabolic Panel, Lipid Panel, Free T4, PSA (Screening Medicare Only), TSH, CBC with differential, Testing Performed By: [facility] [address] [place] [address] CLIA#:[id number] [address] Abbe Celeste, District Customs Director Performed By: #### C 4125, C408, C215, C47, C400, C8 #### [facility] [address] [facility] [address] [place] [address] MCHC (RBC) [Mass/Vol] 34.9 g/dL Normal 32.0-36.0 [facility] Comment on above: Order Comment: Items in this order include: Comprehensive Metabolic Panel, Lipid Panel, Free T4, PSA (Screening Medicare Only), TSH, CBC with differential, Testing Performed By: [facility] [address] [place] [address] CLIA#:[id number] Dr. Abbe Celeste, District Customs Director Performed By: #### C 4125, C408, C215, C47, C400, C8 #### [facility] [address] [facility] [address] [place] [address] MCV (RBC) [Entitic vol] 107.8 fL High 78.0-100.0 [facility] Comment on above: Order Comment: Items in this order include: Comprehensive Metabolic Panel, Lipid Panel, Free T4, PSA (Screening Medicare Only), TSH, CBC with differential, Testing Performed By: [facility] [address] [place] [address] CLIA#:[id number] [address] Abbe Celeste, District Customs Director Performed By: #### C 4125, C408, C215, C47, C400, C8 #### [facility] [address] [facility] [address] [place] [address] MONO # 0.7 K CUMM Normal 0.1-1.0 [facility] Comment on above: Order Comment: Items in this order include: Comprehensive Metabolic Panel, Lipid Panel, Free T4, PSA (Screening Medicare Only), TSH, CBC with differential, Testing Performed By: [facility] [address] [place] [address] CLIA#:[id number] Dr. Abbe Celeste, District Customs Director Performed By: #### C 4125, C408, C215, C47, C400, C8 #### [facility] [address] [facility] [address] [facility] [address] [place] [address] Monocytes/100 WBC (Bld) 9.6 % Normal 4.0-13.0 [facility] Comment on above: Order Comment: Items in this order include: Comprehensive Metabolic Panel, Lipid Panel, Free T4, PSA (Screening Medicare Only), TSH, CBC with differential, Testing Performed By: [facility] [address] [place] [address] CLIA#:[id number] Dr. Abbe Celeste, District Customs Director Performed By: #### C 4125, C408, C215, C47, C400, C8 #### [facility] [address] [facility] [address] [place] [address] DANIEL # 2.9 K CUMM Normal 1.8-7.8 [facility] Comment on above: Order Comment: Items in this order include: Comprehensive Metabolic Panel, Lipid Panel, Free T4, PSA (Screening Medicare Only), TSH, CBC with differential, Testing Performed By: [facility] [address] [place] [address] CLIA#:[id number] [address] Abbe Celeste, District Customs Director Performed By: #### C 4125, C408, C215, C47, C400, C8 #### [facility] [address] [facility] [address] [facility] [address] [place] [address] Neutrophils/100 WBC (Bld) 40.9 % Normal 40.0-74.0 [facility] Comment on above: Order Comment: Items in this order include: Comprehensive Metabolic Panel, Lipid Panel, Free T4, PSA (Screening Medicare Only), TSH, CBC with differential, Testing Performed By: [facility] [address] [place] [address] CLIA#:[id number] [address] Abbe Celeste, District Customs Director Performed By: #### C 4125, C408, C215, C47, C400, C8 #### [facility] [address] [facility] [address] [place] [address] Platelet mean volume (Bld) [Entitic vol] 11.0 fL Normal 8.9-12.6 [facility] Comment on above: Order Comment: Items in this order include: Comprehensive Metabolic Panel, Lipid Panel, Free T4, PSA (Screening Medicare Only), TSH, CBC with differential, Testing Performed By: [facility] [address] [place] [address] CLIA#:[id number] Dr. Abbe Celeste, District Customs Director Performed By: #### C 4125, C408, C215, C47, C400, C8 #### [facility] [address] [facility] [address] [place] [address] PLT 276 K CUMM Normal 130-400 [facility] Comment on above: Order Comment: Items in this order include: Comprehensive Metabolic Panel, Lipid Panel, Free T4, PSA (Screening Medicare Only), TSH, CBC with differential, Testing Performed By: [facility] [address] [place] [address] CLIA#:[id number] [address] Abbe Celeste, District Customs Director Performed By: #### C 4125, C408, C215, C47, C400, C8 #### [facility] [address] [facility] [address] [place] [address] RBC 4.23 M CUMM Normal 4.20-5.80 [facility] Comment on above: Order Comment: Items in this order include: Comprehensive Metabolic Panel, Lipid Panel, Free T4, PSA (Screening Medicare Only), TSH, CBC with differential, Testing Performed By: [facility] [address] [place] [address] CLIA#:[id number] [address] Abbe Celeste, District Customs Director Performed By: #### C 4125, C408, C215, C47, C400, C8 #### [facility] [address] [facility] [address] [place] [address] WBC 7.1 K CUMM Normal 3.8-10.6 [facility] Comment on above: Order Comment: Items in this order include: Comprehensive Metabolic Panel, Lipid Panel, Free T4, PSA (Screening Medicare Only), TSH, CBC with differential, Testing Performed By: [facility] [address] [place] [address] CLIA#:[id number] [address] Abbe Celeste, District Customs Director Performed By: #### C 4125, C408, C215, C47, C400, C8 #### [facility] [address] [facility] [address] [place] [address] Comprehensive Metabolic Pane l ([facility])on 01-16-2023 Albumin [Mass/Vol] 4.5 g/dL Normal 3.2-4.8 [facility] Comment on above: Order Comment: Items in this order include: Comprehensive Metabolic Panel, Lipid Panel, Free T4, PSA (Screening Medicare Only), TSH, CBC with differential, Testing Performed By: [facility] [address] [place] [address] CLIA#:[id number] Dr. Abbe Celeste, District Customs Director Performed By: #### C 4125, C408, C215, C47, C400, C8 #### [facility] [address] [facility] [address] [place] [address] Albumin/Globulin [Mass ratio] 1.6 {ratio} Normal 1.3-2.1 [facility] Comment on above: Order Comment: Items in this order include: Comprehensive Metabolic Panel, Lipid Panel, Free T4, PSA (Screening Medicare Only), TSH, CBC with differential, Testing Performed By: [facility] [address] [place] [address] CLIA#:[id number] [address] Abbe Celeste, District Customs Director Performed By: #### C 4125, C408, C215, C47, C400, C8 #### [facility] [address] [facility] [address] [place] [address] Alk Phos 82 U/L Normal 40-127 [facility] Comment on above: Order Comment: Items in this order include: Comprehensive Metabolic Panel, Lipid Panel, Free T4, PSA (Screening Medicare Only), TSH, CBC with differential, Testing Performed By: [facility] [address] [place] [address] CLIA#:[id number] [address] Abbe Celeste, District Customs Director Performed By: #### C 4125, C408, C215, C47, C400, C8 #### [facility] [address] [facility] [address] [place] [address] ALT [Catalytic activity/Vol] 72 U/L High 10-49 [facility] Comment on above: Order Comment: Items in this order include: Comprehensive Metabolic Panel, Lipid Panel, Free T4, PSA (Screening Medicare Only), TSH, CBC with differential, Testing Performed By: [facility] [address] [place] [address] CLIA#:[id number] [address] Abbe Celeste, District Customs Director Performed By: #### C 4125, C408, C215, C47, C400, C8 #### [facility] [address] [facility] [address] [place] [address] AST [Catalytic activity/Vol] 63 U/L High <34 [facility] Comment on above: Order Comment: Items in this order include: Comprehensive Metabolic Panel, Lipid Panel, Free T4, PSA (Screening Medicare Only), TSH, CBC with differential, Testing Performed By: [facility] [address] [place] [address] CLIA#:[id number] [address] Abbe Celeste, District Customs Director Performed By: #### C 4125, C408, C215, C47, C400, C8 #### [facility] [address] [facility] [address] [place] [address] B/C Ratio 15.0 Ratio Normal 10.0-28.6 [facility] Comment on above: Order Comment: Items in this order include: Comprehensive Metabolic Panel, Lipid Panel, Free T4, PSA (Screening Medicare Only), TSH, CBC with differential, Testing Performed By: [facility] [address] [place] [address] CLIA#:[id number] [address] Abbe Celeste, District Customs Director Performed By: #### C 4125, C408, C215, C47, C400, C8 #### [facility], [facility]. [address] [facility] [address] [place] [address] Bilirubin [Mass/Vol] 1.3 mg/dL High 0.3-1.2 [facility] Comment on above: Order Comment: Items in this order include: Comprehensive Metabolic Panel, Lipid Panel, Free T4, PSA (Screening Medicare Only), TSH, CBC with differential, Testing Performed By: [facility] [address] [place] [address] CLIA#:[id number] [address]. Abbe Celeste, District Customs Director Performed By: #### C 4125, C408, C215, C47, C400, C8 #### [facility], [facility]. [address] [facility] [address] [place] [address] Calcium [Mass/Vol] 9.8 mg/dL Normal 8.3-10.6 [facility] Comment on above: Order Comment: Items in this order include: Comprehensive Metabolic Panel, Lipid Panel, Free T4, PSA (Screening Medicare Only), TSH, CBC with differential, Testing Performed By: [facility] [address] [place] [address] CLIA#:[id number] [address] Abbe Celeste, District Customs Director Performed By: #### C 4125, C408, C215, C47, C400, C8 #### [facility] [address] [facility] [address] [place] [address] Chloride [Moles/Vol] 103 mmol/L Normal 98-107 [facility] Comment on above: Order Comment: Items in this order include: Comprehensive Metabolic Panel, Lipid Panel, Free T4, PSA (Screening Medicare Only), TSH, CBC with differential, Testing Performed By: [facility] [address] [place] [address] CLIA#:[id number] [address] Abbe Celeste, District Customs Director Performed By: #### C 4125, C408, C215, C47, C400, C8 #### [facility] [address] [facility] [address] [place] [address] CO2 [Moles/Vol] 25 mmol/L Normal 20-31 [facility] Comment on above: Order Comment: Items in this order include: Comprehensive Metabolic Panel, Lipid Panel, Free T4, PSA (Screening Medicare Only), TSH, CBC with differential, Testing Performed By: [facility] [address] [place] [address] CLIA#:[id number] [address] Abbe Celeste, District Customs Director Performed By: #### C 4125, C408, C215, C47, C400, C8 #### [facility] [address] [facility] [address] [place] [address] Creatinine [Mass/Vol] 0.8 mg/dL Normal 0.7-1.3 [facility] Comment on above: Order Comment: Items in this order include: Comprehensive Metabolic Panel, Lipid Panel, Free T4, PSA (Screening Medicare Only), TSH, CBC with differential, Testing Performed By: [facility] [address] [place] [address] CLIA#:[id number] [address]. Abbe Celeste, District Customs Director Performed By: #### C 4125, C408, C215, C47, C400, C8 #### [facility] [address] [facility] [address] [place] [address] GFRCKD 97 mL/min per 1.73 Normal >60 [facility] Comment on above: Order Comment: Items in this order include: Comprehensive Metabolic Panel, Lipid Panel, Free T4, PSA (Screening Medicare Only), TSH, CBC with differential, Testing Performed By: [facility] [address] [place] [address] CLIA#:[id number] [address] Abbe Celeste, District Customs Director Result Comment: The GFR estimate is not adjusted for race. Performed By: #### C 4125, C408, C215, C47, C400, C8 #### [facility] [address] [facility] [address] [place] [address] Globulin (S) [Mass/Vol] 2.8 g/dL Normal [facility] Comment on above: Order Comment: Items in this order include: Comprehensive Metabolic Panel, Lipid Panel, Free T4, PSA (Screening Medicare Only), TSH, CBC with differential, Testing Performed By: [facility] [address] [place] [address] CLIA#:[id number] [address] Abbe Celeste, District Customs Director Performed By: #### C 4125, C408, C215, C47, C400, C8 #### [facility] [address] [facility] [address] [place] [address] Glucose [Mass/Vol] 101 mg/dL Normal 74-106 [facility] Comment on above: Order Comment: Items in this order include: Comprehensive Metabolic Panel, Lipid Panel, Free T4, PSA (Screening Medicare Only), TSH, CBC with differential, Testing Performed By: [facility] [address] [place] [address] CLIA#:[id number] [address] Abbe Celeste, District Customs Director Performed By: #### C 4125, C408, C215, C47, C400, C8 #### [facility] [facility] [address] [place] [address] Potassium [Moles/Vol] 4.2 mmol/L Normal 3.5-5.1 [facility] Comment on above: Order Comment: Items in this order include: Comprehensive Metabolic Panel, Lipid Panel, Free T4, PSA (Screening Medicare Only), TSH, CBC with differential, Testing Performed By: [facility] [address] [place] [address] CLIA#:[id number] Dr. Abbe Celeste, District Customs Director Performed By: #### C 4125, C408, C215, C47, C400, C8 #### [facility] [facility] [address] [place] [address] Protein [Mass/Vol] 7.3 g/dL Normal 5.7-8.2 [facility] Comment on above: Order Comment: Items in this order include: Comprehensive Metabolic Panel, Lipid Panel, Free T4, PSA (Screening Medicare Only), TSH, CBC with differential, Testing Performed By: [facility] [address] [place] [address] CLIA#:[id number] [address]. Abbe Celeste, District Customs Director Performed By: #### C 4125, C408, C215, C47, C400, C8 #### [facility] [address] [place] [address] Sodium [Moles/Vol] 138 mmol/L Normal 136-145 [facility] Comment on above: Order Comment: Items in this order include: Comprehensive Metabolic Panel, Lipid Panel, Free T4, PSA (Screening Medicare Only), TSH, CBC with differential, Testing Performed By: [facility] [address] [place] [address] CLIA#:[id number] [address]. Abbe Celeste, District Customs Director Performed By: #### C 4125, C408, C215, C47, C400, C8 #### [facility] [address] [place] [address] Urea nitrogen [Mass/Vol] 12 mg/dL Normal 9-23 [facility] Comment on above: Order Comment: Items in this order include: Comprehensive Metabolic Panel, Lipid Panel, Free T4, PSA (Screening Medicare Only), TSH, CBC with differential, Testing Performed By: [facility] [address] [place] [address] CLIA#:[id number] [address] Abbe Celeste, District Customs Director Performed By: #### C 4125, C408, C215, C47, C400, C8 #### [facility] [address] [place] [address] Free T4 ([facility])on 01-16-2023 Free T4 [Mass/Vol] 0.9 ng/dL Normal 0.9-1.8 [facility] Comment on above: Performed By: #### C 4125, C408, C215, C47, C400, C8 #### [facility] [address] [place] [address] Lipid Panel (COPC)on 023 Cholesterol [Mass/Vol] 145 mg/dL Normal <200 [facility] Comment on above: Result Comment: Low- risk levels (desirable) < 200 mg/dL Moderate-risk levels (borderline) 200 to 239 mg/dL High-risk levels > or = 240 mg/dL Performed By: #### C 4125, C408, C215, C47, C400, C8 #### [facility] [address] [place] [address] Cholesterol in HDL [Mass/Vol] 46 mg/dL Low >60 [facility] Comment on above: Performed By: #### C 4125, C408, C215, C47, C400, C8 #### [facility] [address] [place] [address] Cholesterol in LDL [Mass/Vol] 88 mg/dL Normal <130 [facility] Comment on above: Performed By: #### C 4125, C408, C215, C47, C400, C8 #### [facility] [address] [place] [address] Cholesterol.total/Cho lesterol in HDL [Mass ratio] 3.2 {ratio} Normal <4.0 [facility] Comment on above: Performed By: #### C 4125, C408, C215, C47, C400, C8 #### [facility] [address] [place] [address] Non-HDL Chol 99 Normal LDL Goal + 30 [facility] Comment on above: Result Comment: LDL and Non-HDL goal dependent upon individual risk Performed By: #### C 4125, C408, C215, C47, C400, C8 #### [facility] [address] [place] [address] Triglyceride [Mass/Vol] 55 mg/dL Normal <150 [facility] Comment on above: Performed By: #### C 4125, C408, C215, C47, C400, C8 #### [facility] [address] [place] [address] VLDL-Calc 11 mg/dl Normal <30 [facility] Comment on above: Performed By: #### C 4125, C408, C215, C47, C400, C8 #### [facility] [address] [place] [address] PSA (Screening Medicare Only ) ([facility])on 01-16-2023 SCRPSA 0.49 ng/mL Normal 0.00-4.00 [facility] Comment on above: Performed By: #### C 4125, C408, C215, C47, C400, C8 #### [facility] [address] [place] [address] TSH ([facility])on 01-16-2023 TSH 2.462 MIU/mL Normal 0.550-4.780 [facility] Comment on above: Performed By: #### C 4125, C408, C215, C47, C400, C8 #### [facility] [address] [place] [address] CT LUNG SCREENINGon 11-18-[address] LUNG [...] Self Edit Transcribed Date: 11/18/2022 14:11 Normal [facility] Basic Metabolic Panel [facility] 07-12-2021 Calcium [Mass/Vol] 9.5 mg/dL Normal 8.9-10.3 [facility] Comment on above: Performed By: #### C D:[id number] #### [facility] Chloride [Moles/Vol] 102 mmol/L Normal 98-107 [facility] Comment on above: Performed By: #### C D:[id number] #### [facility] CO2 [Moles/Vol] 25 mmol/L Normal 22-32 [facility] Comment on above: Performed By: #### C D:[id number] #### [facility] Creatinine [Mass/Vol] 0.7 mg/dL Normal 0.6-1.3 [facility] Comment on above: Performed By: #### C D:[id number] #### [facility] GFR/1.73 sq M.predicted (S/P/Bld) [Vol rate/Area] mL/min Normal [facility] Comment on above: Performed By: #### C D:[id number] #### [facility] Glucose [Mass/Vol] 185 mg/dL High 70-99 [facility] Comment on above: Performed By: #### C D:[id number] #### [facility] Potassium post dialysis [Moles/Vol] 4.0 mMol/L Normal 3.6-5.1 [facility] Comment on above: Performed By: #### C D:[id number] #### [facility] Sodium [Moles/Vol] 139 mmol/L Normal 136-145 [facility] Comment on above: Performed By: #### C D:[id number] #### [facility] Urea nitrogen [Mass/Vol] 8 mg/dL Normal 8-20 [facility] Comment on above: Performed By: #### C D:[id number] #### [facility] Blood Gas POCT VBG Blanquita ohara (Uploaded)on 07-12-2021 Calcium.ionized (Bld) [Mass/Vol] 1.20 mMol/L Normal 1.12-1.32 [facility] Comment on above: Performed By: #### 2 4339-4x4 #### POINT OF CARE Carboxyhemoglobin (Bld) [Mass fraction] 2.9 % Normal [facility] Comment on above: Result Comment: NON SMOKERS <1.5% SMOKERS 1.5 - 9.0% Performed By: #### 2 4339-4x4 #### POINT [facility] CARE Chemistry studies (set) 21.0 % Normal [facility] Comment on above: Performed By: #### 2 4339-4x4 #### POINT OF CARE Chloride [Moles/Vol] 105 mmol/L Normal 98-106 [facility] Comment on above: Performed By: #### 2 4339-4x4 #### POINT OF CARE Glucose [Mass/Vol] 182 mg/dL High 70-110 [facility] Comment on above: Performed By: #### 2 4339-4x4 #### POINT OF CARE Hemoglobin (Bld) [Mass/Vol] 16.4 g/dL Normal 13.5-17.5 [facility] Comment on above: Performed By: #### 2 4339-4x4 #### POINT OF CARE Lactate [Moles/Vol] 1.1 mmol/L Normal 0.5-2.2 [facility] Comment on above: Performed By: #### 2 4339-4x4 #### POINT OF CARE Methemoglobin (Bld) [Mass fraction] % Normal 0.2-0.6 [facility] Comment on above: Performed By: #### 2 4339-4x4 #### POINT OF CARE Oxygen (BldCoV) [Partial pressure] 52 mmHg High 25-40 [facility] Comment on above: Performed By: #### 2 4339-4x4 #### POINT OF CARE Oxyhemoglobin (Bld) [Mass fraction] 86.9 % High 40.0-70.0 [facility] Comment on above: Performed By: #### 2 4339-4x4 #### POINT OF CARE pCO2 Venous POCT 38 mmHg Low 41-51 [facility] Comment on above: Performed By: #### 2 4339-4x4 #### POINT OF CARE pH Venous POCT 7.43 High 7.31-7.41 [facility] Comment on above: Performed By: #### 2 4339-4x4 #### POINT OF CARE Potassium post dialysis [Moles/Vol] 3.8 mEq/L Normal 3.5-5.0 [facility] Comment on above: Performed By: #### 2 4339-4x4 #### POINT OF CARE SaO2% (BldCoV) [Mass fraction] 90.0 % High 40.0-70.0 [facility] Comment on above: Performed By: #### 2 4339-4x4 #### POINT OF CARE Sodium [Moles/Vol] 140 mmol/L Normal 136-146 [facility] Comment on above: Performed By: #### 2 4339-4x4 #### POINT OF CARE CBC POCTon 07-12-2021 Erythrocyte distribution width (RBC) [Entitic vol] 13.5 % Normal 11.0-16.3 [facility] Comment on above: Performed By: #### C D:[id number] #### [facility] Hematocrit (BldA) [Volume fraction] 47.1 % Normal 31.1-57.4 [facility] Comment on above: Performed By: #### C D:[id number] #### [facility] Hemoglobin (Bld) [Mass/Vol] 16.7 g/dL Normal 10.5-17.8 [facility] Comment on above: Performed By: #### C D:[id number] #### [facility] Lymphocytes (Bld) [#/Vol] 1.7 thou/mcL Normal 1.0-4.8 [facility] Comment on above: Performed By: #### C D:[id number] #### [facility] Lymphocytes/100 WBC (Bld) 16.4 % Low 25.0-57.0 [facility] Comment on above: Performed By: #### C D:[id number] #### [facility] MCH (RBC) [Entitic mass] 37.3 Picograms High 27.4-35.7 [facility] Comment on above: Performed By: #### C D:[id number] #### [facility] MCHC (RBC) [Mass/Vol] 35.5 g/dL Normal 32.7-36.7 [facility] Comment on above: Performed By: #### C D:[id number] #### [facility] MCV (RBC) [Entitic vol] 105.1 fL High 82.5-102.0 [facility] Comment on above: Performed By: #### C D:[id number] #### [facility] Neutrophils (Bld) [#/Vol] 8.0 thou/mcL High 1.8-7.7 [facility] Comment on above: Performed By: #### C D:[id number] #### [facility] Neutrophils/100 WBC (Bld) 77.9 % High 37.0-75.0 [facility] Comment on above: Performed By: #### C D:[id number] #### [facility] Platelet mean volume (Bld) [Entitic vol] 10.4 fL Normal 8.5-13.5 [facility] Comment on above: Performed By: #### C D:[id number] #### [facility] Platelets (Bld) [#/Vol] 267 thou/mcL Normal 166-400 [facility] Comment on above: Performed By: #### C D:[id number] #### [facility] RBC (Bld) [#/Vol] 4.48 million/mcL Normal 3.30-6.06 [facility] Comment on above: Performed By: #### C D:[id number] #### [facility] WBC (Bld) [#/Vol] 10.3 thou/mcL Normal 5.2-17.1 [facility] Comment on above: Performed By: #### C D:[id number] #### [facility] WBC other (Bld) [#/Vol] 0.6 thou/mcL Normal 0.1-1.3 [facility] Comment on above: Performed By: #### C D:[id number] #### [facility] WBC other/100 WBC (Bld) 5.7 % Normal 1.2-11.4 [facility] Comment on above: Performed By: #### C D:[id number] #### [facility] Coronavirus (COVID-19/SARS-C oV-2) POCTon 07-12-2021 SARS-CoV-2 (COVID-19) RdRp gene RANDY+probe Ql (Resp) Not detected Normal [facility] Comment on above: Result Comment: This test was performed via the Software 2000 NOW COVID-19 assay and has been authorized by FDA under an Emergency Use Authorization (EUA). 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 The [...] D-dimer Qn (PPP) 339 mcg/mL Normal 0-400 [facility] Comment on above: Performed By: #### C D:[id number] #### [facility] ED Pat Eduon 07-12-2021 ED Pat [facility] [address] [id number] [phone] Emergency Department Discharge Instructions ALEJANDRO MARADIAGA, Please provide this information to your Primary Care/Specialist Name: ALEJANDRO MARADIAGA Current Date : 07/12/2021 09:45:39 : 1955 Primary Care Physician: Elle Cortes MD Diagnosis : COPD exacerbation; Pneumonia Follow-Up Instructions: ALEJANDRO MARADIAGA has been given these follow-up instructions: FOLLOW-UP APPOINTMENTS: Provider: Specialty: Address: Date: Elle Cortes MD Internal Medicine [address] [place] [address] (1) Comment: Call for an Appointment Laboratory [...] los [facility] Name ALEJANDRO MARADIAGA -[phone] [facility]ly [facility]# [id number] PLEASE READ THE FOLLOWING REGARDING YOUR MEDICATIONS [...] doses are changed, or new medications (including hfrq-mtc-bfxroqy products) are added. If you have any [...] your F (more content not included)... Normal [facility] Hepatic Function Panel POCTo n 07-12-2021 Albumin [Mass/Vol] 4.3 g/dL Normal 3.5-4.8 [facility] Comment on above: Performed By: #### C D:[id number] #### [facility] ALP (S/P/Bld) [Catalytic activity/Vol] 94 Units/L High 32-91 [facility] Comment on above: Performed By: #### C D:[id number] #### [facility] ALT/Aspartate aminotransferase [Catalytic ratio] 88 Units/L High 7-52 [facility] Comment on above: Performed By: #### C D:[id number] #### [facility] Amylase [Catalytic activity/Vol] 38 Units/L Normal 26-100 [facility] Comment on above: Performed By: #### C D:[id number] #### [facility] AST [Catalytic activity/Vol] 70 Units/L High 15-41 [facility] Comment on above: Performed By: #### C D:[id number] #### [facility] Bilirubin [Mass/Vol] 1.2 mg/dL Normal 0.3-1.2 [facility] Comment on above: Performed By: #### C D:[id number] #### [facility] Gamma glutamyl transferase [Catalytic activity/Vol] 293 Units/L High 7-50 [facility] Comment on above: Performed By: #### C D:[id number] #### [facility] Protein [Mass/Vol] 8.0 g/dL High 6.1-7.9 [facility] Comment on above: Performed By: #### C D:[id number] #### [facility] I.cardiac [Mass/Vol] 0.00 ng/mL Normal <0.08 [facility] Comment on above: Performed [...] Kodi Mohan MD 07/12/2021 07:14 Transcribed by: [facility] 07/12/2021 07:12 Technologist: ERIBERTO Ernst [facility] XR Chest 2 Viewson XR [...] Lisa Parrish MD 05/08/2021 08:29 Transcribed by: [facility] 05/08/2021 08:29 Technologist: ZAID Ernst [facility] Vital Signs Date Time Vital Sign Value Performing Clinician Facility 07-07-2025 10:55-0400 Body height 175.26 cm Shanell Craig MD Work Phone: [facility] 07-07-2025 10:55-0400 Body mass index (BMI) [Ratio] 25.2 kg/m2 Shanell Craig MD Work Phone: [facility] 07-07-2025 10:55-0400 Body weight 77.56 kg Shanell Craig MD Work Phone: [facility] 07-07-2025 10:55-0400 Diastolic blood pressure 80 mm[Hg] Shanell Craig MD Work Phone: [facility] 07-07-2025 10:55-0400 Heart rate 80 /min Shanell Craig MD Work Phone: [facility] 07-07-2025 10:55-0400 Respiratory rate 20 /min Shanell Craig MD Work Phone: [facility] 07-07-2025 10:55-0400 SaO2% (BldA) [Mass fraction] 95 % Shanell Craig MD Work Phone: [facility] 07-07-2025 10:55-0400 Systolic blood pressure 138 mm[Hg] Shanell Craig MD Work Phone: [facility] 01-06-2025 10:55-0500 Body height 175.26 cm Shanell Craig MD Work Phone: [facility] 01-06-2025 10:55-0500 Body mass index (BMI) [Ratio] 25.4 kg/m2 Shanell Craig MD Work Phone: [facility] 01-06-2025 10:55-0500 Body weight 78.01 kg Shanell Craig MD Work Phone: [facility] 01-06-2025 10:55-0500 Diastolic blood pressure 93 mm[Hg] Shanell Craig MD Work Phone: [facility] 01-06-2025 10:55-0500 Heart rate 84 /min Shanell Craig MD Work Phone: [facility] 01-06-2025 10:55-0500 Respiratory rate 20 /min Shanell Craig MD Work Phone: [facility] 01-06-2025 10:55-0500 SaO2% (BldA) [Mass fraction] 97 % Shanell Craig MD Work Phone: [facility] 01-06-2025 10:55-0500 Systolic blood pressure 151 mm[Hg] Shanell Craig MD Work Phone: [facility] 12-29-2024 10:14-0500 Body height 175.26 cm Shanell Craig MD Work Phone: [facility] 12-29-2024 10:14-0500 Body mass index (BMI) [Ratio] 26.2 kg/m2 Shanell Craig MD Work Phone: [facility] 12-29-2024 10:14-0500 Body weight 80.34 kg Shanell Craig MD Work Phone: [phone] [place] [address] 12-29-2024 10:14-0500 Diastolic blood pressure 69 mm[Hg] Shanell Craig MD Work Phone: [phone] [place] [address] 12-29-2024 10:14-0500 Heart rate 80 /min Shanell Craig MD Work Phone: [facility] 12-29-2024 10:14-0500 Systolic blood pressure 133 mm[Hg] Shanell Craig MD Work Phone: [facility] 10-22-2024 11:16-0500 Body height 175.26 cm Shanell Craig MD Work Phone: [facility] 10-22-2024 11:16-0500 Body mass index (BMI) [Ratio] 25.5 kg/m2 Shanell Craig MD Work Phone: [facility] 10-22-2024 11:16-0500 Body weight 78.47 kg Shanell Craig MD Work Phone: [phone] [place] [address] 10-22-2024 11:16-0500 Diastolic blood pressure 68 mm[Hg] Shanell Craig MD Work Phone: [facility] 10-22-2024 11:16-0500 Heart rate 81 /min Shanell Craig MD Work Phone: [facility] 10-22-2024 11:16-0500 SaO2% (BldA) [Mass fraction] 96 % Shanell Craig MD Work Phone: [facility] 10-22-2024 11:16-0500 Systolic blood pressure 128 mm[Hg] Shanell Craig MD Work Phone: [facility] 05-18-2024 14:24-0400 Body height 175.26 cm [facility] 05-18-2024 14:24-0400 Body mass index (BMI) [Ratio] 24.2 kg/m2 [facility] 05-18-2024 14:24-0400 Body temperature 97.3 [degF] [facility] 05-18-2024 14:24-0400 Body weight 74.38 kg [facility] 05-18-2024 14:24-0400 Diastolic blood pressure 65 mm[Hg] [facility] 05-18-2024 14:24-0400 Heart rate 74 /min [facility] 05-18-2024 14:24-0400 Respiratory rate 20 /min [facility] 05-18-2024 14:24-0400 SaO2% (BldA) [Mass fraction] 97 % [facility] 05-18-2024 14:24-0400 Systolic blood pressure 114 mm[Hg] [facility] 02-23-2024 10:36-0400 Body height 175.26 cm MD Shanell Craig Work Phone: [facility] 02-23-2024 10:36-0400 Body mass index (BMI) [Ratio] 23.6 kg/m2 MD Shanell Craig Work Phone: [facility] 02-23-2024 10:36-0400 Body weight 72.57 kg MD Shanell Craig Work Phone: [facility] 02-23-2024 10:36-0400 Diastolic blood pressure 63 mm[Hg] MD Shanell Craig Work Phone: [facility] 02-23-2024 10:36-0400 Heart rate 86 /min MD Shanell Craig Work Phone: [facility] 02-23-2024 10:36-0400 Systolic blood pressure 108 mm[Hg] MD Shanell Craig Work Phone: [facility] 02-10-2024 15:48-0400 Body height 175.26 cm MD Shanell Craig Work Phone: [facility] 02-10-2024 15:48-0400 Body mass index (BMI) [Ratio] 23.3 kg/m2 MD Shanell Craig Work Phone: [facility] 02-10-2024 15:48-0400 Body temperature 96.5 [degF] MD Shanell Craig Work Phone: [facility] 02-10-2024 15:48-0400 Body weight 71.66 kg MD Shanell Craig Work Phone: [facility] 02-10-2024 15:48-0400 Diastolic blood pressure 78 mm[Hg] MD Shanell Craig Work Phone: [facility] 02-10-2024 15:48-0400 Heart rate 82 /min MD Shanell Craig Work Phone: [facility] 02-10-2024 15:48-0400 Respiratory rate 20 /min MD Shanell Craig Work Phone: [facility] 02-10-2024 15:48-0400 SaO2% (BldA) [Mass fraction] 97 % MD Shanell Craig Work Phone: [facility] 02-10-2024 15:48-0400 Systolic blood pressure 113 mm[Hg] MD Shanell Craig Work Phone: [facility] 10-24-2023 10:30-0500 Body height 175.26 cm Shanell Craig Other [employer] [facility] [employer] Other 10-24-2023 10:30-0500 Body mass index (BMI) [Ratio] 23.03 kg/m2 Shanell Craig Other [facility] Other 10-24-2023 10:30-0500 Body weight 70.76 kg Shanell Craig Other [facility] Other 10-24-2023 10:30-0500 Diastolic blood pressure 71 mm[Hg] Shanell Craig Other [facility] Other 10-24-2023 10:30-0500 SaO2% (BldA) [Mass fraction] 97 % Shanell Craig Other [facility] Other 10-24-2023 10:30-0500 Systolic blood pressure 118 mm[Hg] Shanell Craig Other [facility] Other 09-01-2023 08:30-0400 Body height 175.26 cm Bobbydarinel Ontiveros Other [facility] Other 09-01-2023 08:30-0400 Body mass index (BMI) [Ratio] 24.81 kg/m2 Bobbydarinel Ontiveros Other [facility] Other 09-01-2023 08:30-0400 Body temperature 97.2 [degF] Bobbydarinel Ontiveros Other [facility] Other 09-01-2023 08:30-0400 Body weight 76.2 kg Bobbydarinel Ontiveros Other [facility] Other 09-01-2023 08:30-0400 Diastolic blood pressure 82 mm[Hg] Bobbydarinel Ontiveros Other [facility] Other 09-01-2023 08:30-0400 Respiratory rate 20 /min Bobbydarinel Ontiveros Other [facility] Other 09-01-2023 08:30-0400 SaO2% (BldA) [Mass fraction] 98 % Irma Ontiveros Other [facility] Other 09-01-2023 08:30-0400 Systolic blood pressure 120 mm[Hg] Irma Ontiveros Other [facility] Other 06-20-2023 08:30-0400 Body height 172.72 cm Shanell Craig Other [facility] Other 06-20-2023 08:30-0400 Body mass index (BMI) [Ratio] 27.06 kg/m2 Shanell Craig Other [facility] Other 06-20-2023 08:30-0400 Body weight 80.74 kg Shanell Craig Other [facility] Other 06-20-2023 08:30-0400 Diastolic blood pressure 72 mm[Hg] Shanell Craig Other [facility] Other 06-20-2023 08:30-0400 Systolic blood pressure 133 mm[Hg] Shanell Craig Other [facility] Other 11-14-2022 10:36-0500 Body height 180.3 cm Rhonda Kaiser MD Work Phone: [facility] 11-14-2022 10:36-0500 Body mass index (BMI) [Ratio] 24.23 kg/m2 Rhonda Kaiser MD Work Phone: [facility] 11-14-2022 10:36-0500 Body temperature 97.59 [degF] Rhonda aKiser MD Work Phone: [facility] 11-14-2022 10:36-0500 Body weight 78.79 kg Rhonda Kaiser MD Work Phone: [facility] 11-14-2022 10:36-0500 Diastolic blood pressure 80 mm[Hg] Rhonda Kaiser MD Work Phone: [facility] 11-14-2022 10:36-0500 Heart rate 75 /min Rhonda Kaiser MD Work Phone: [facility] 11-14-2022 10:36-0500 Respiratory rate 16 /min Rhonda Kaiser MD Work Phone: [facility] 11-14-2022 10:36-0500 SaO2% (BldA) [Mass fraction] 96 % Rhonda Kaiser MD Work Phone: [facility] Comment on above: [facility] 11-14-2022 10:36-0500 Systolic blood pressure 168 mm[Hg] Rhonda Kaiser MD Work Phone: [facility] Encounters Encounter Date Encounter Type Care Provider Facility Start: 08-16-2025 End: 08-16-2025 ambulatory [facility] Start: 07-07-2025 End: 07-07-2025 ambulatory Shanell Craig MD Work Phone: [facility] Work Phone: Start: 07-07-2025 End: 07-07-2025 Patient encounter procedure Tima Osorio MD -[facility] Work Phone: Start: 06-13-2025 ambulatory RUTH STEINBERG [facility] Start: 04-08-2025 ambulatory [facility] Start: 02-01-2025 ambulatory [facility] Start: 01-06-2025 End: 01-06-2025 ambulatory Shanell Craig MD Work Phone: [facility] Work Phone: Start: 01-06-2025 End: 01-06-2025 Patient encounter procedure Shanell Craig MD Work Phone: [facility] Work Phone: Start: 12-31-2024 End: 12-31-2024 [facility] Start: 12-30-2024 Patient encounter procedure Shanell Craig MD Work Phone: [facility] Start: 12-29-2024 End: 12-29-2024 ambulatory Shanell Craig MD Work Phone: [facility] Work Phone: Start: 12-29-2024 End: 12-29-2024 Patient encounter procedure Shanell Craig MD Work Phone: [facility] Work Phone: Start: 12-28-2024 End: 12-28-2024 Patient encounter procedure Shanell Craig MD Work Phone: [facility] [address] Work Phone: Start: 12-28-2024 End: 12-28-2024 ambulatory Shanell Craig MD Work Phone: [facility] Work Phone: Start: 11-12-2024 ambulatory [facility] Start: 11-08-2024 ambulatory [facility] Start: 10-29-2024 Non-patient / Non-visit Shanell Craig MD Work Phone: [facility] Work Phone: Start: 10-22-2024 End: 10-22-2024 Patient encounter procedure Shanell Craig MD Work Phone: [facility] Work Phone: Start: 10-20-2024 Non-patient / Non-visit Shanell Craig MD Work Phone: [facility] Work Phone: Start: 10-18-2024 ambulatory [facility] Start: 10-18-2024 Non-patient / Non-visit Shanell Craig MD Work Phone: [facility] Work Phone: Start: 10-18-2024 Non-patient / Non-visit Shanell Craig MD Work Phone: [facility] Work Phone: Start: 10-17-2024 Non-patient / Non-visit Shanell Craig MD Work Phone: [facility] Work Phone: Start: 09-01-2024 ambulatory [facility] Start: 08-24-2024 ambulatory [facility] Start: 05-18-2024 End: 05-18-2024 ambulatory [facility] Work Phone: Start: 05-18-2024 End: 05-18-2024 Patient encounter procedure [facility] Work Phone: Start: 02-23-2024 End: 02-23-2024 ambulatory MD Shanell Craig Work Phone: [facility] Work Phone: Start: 02-23-2024 End: 02-23-2024 Patient encounter procedure MD Shanell Craig Work Phone: [facility] Work Phone: Start: 02-10-2024 End: 02-10-2024 ambulatory MD Shanell Craig Work Phone: [facility] Work Phone: Start: 02-10-2024 End: 02-10-2024 Patient encounter procedure MD Shanell Craig Work Phone: [facility] Pulmonary Disease Work Phone: Start: 02-04-2024 ambulatory [facility] Start: 02-04-2024 ambulatory ELLE CORTES [facility] Start: 02-04-2024 ambulatory EL[facility] CORTES [facility] Start: 01-15-2024 Non-patient / Non-visit MD Shanell Craig Work Phone: [facility] Work Phone: Start: 12-01-2023 End: 12-01-2023 ambulatory Tima Bacano Other [facility] [id number] Other Start: 12-01-2023 Telephone encounter Tima Suh floyd [facility] Start: 11-27-2023 End: 11-27-2023 ambulatory MD Shanell Craig Work Phone: [facility] Work Phone: Start: 11-27-2023 End: 11-27-2023 Patient encounter procedure MD Shanell Craig Work Phone: [facility] [address] Work Phone: Start: 11-04-2023 End: 11-04-2023 ambulatory Shanell Craig Other [facility] Other Start: 11-04-2023 Telephone encounter Shanell Craig [facility] Start: 10-24-2023 End: 10-24-2023 ambulatory Shanell Craig Other [employer] Other Start: 10-24-2023 Office outpatient visit 25 minutes Shanell Craig [facility] Start: 10-24-2023 Telephone encounter Shanell Craig [facility] Start: 10-24-2023 End: 10-24-2023 Patient encounter procedure MD Shanell Craig Work Phone: [facility] Work Phone: Start: 10-22-2023 End: 10-22-2023 ambulatory Irma Ontiveros Other [employer] Other Start: 10-22-2023 Telephone encounter Irma Ontiveros [facility] Start: 09-01-2023 End: 09-01-2023 ambulatory Irma Ontiveros Other [facility] Other Start: 09-01-2023 Office outpatient ne w 45 minutes Irma Ontiveros [facility] Start: 09-01-2023 End: 09-01-2023 Patient encounter procedure MD Shanell Craig Work Phone: [facility] Work Phone: Start: 08-25-2023 End: 08-25-2023 ambulatory Shanell Craig Other [facility] Other Start: 08-25-2023 Telephone encounter Shanell Craig [facility] Start: 07-08-2023 End: 07-08-2023 ambulatory Shanell Craig Other [facility] Other Start: 07-08-2023 Telephone encounter Shanell Craig [facility] Start: 06-20-2023 End: 06-20-2023 ambulatory Shanell Craig Other [facility] Other Start: 06-20-2023 Office outpatient ne w 30 minutes Shanell Craig [facility] Start: 03-03-2023 ambulatory AVA GODFREY [facility] Start: 11-25-2022 End: 11-25-2022 ambulatory JENNI NOBLET JENNI [facility] Start: 11-25-2022 End: 11-25-2022 ambulatory Jenni Noblet [facility] Comment on above: Spondylosis without myelopathy or radiculopathy, cervical region (Primary Dx); Neck pain; Cervicalgia; Chronic left shoulder pain; Left shoulder pain, unspecified chronicity Start: 11-25-2022 End: 11-25-2022 Treatment Jenni Noblet PT [facility] Start: 11-20-2022 End: 11-20-2022 ambulatory [facility] [place] Comment on above: Spondylosis without myelopathy or radiculopathy, cervical region (Primary Dx); Neck pain; Cervicalgia; Chronic left shoulder pain; Left shoulder pain, unspecified chronicity Start: 11-20-2022 End: 11-20-2022 Treatment Jenni Noblet PT [facility] Start: 11-18-2022 End: 11-18-2022 ambulatory [facility] Comment on above: Spondylosis without myelopathy or radiculopathy, cervical region (Primary Dx); Neck pain; Cervicalgia; Chronic left shoulder pain; Left shoulder pain, unspecified chronicity Start: 11-18-2022 End: 11-18-2022 Treatment Jenni Noblet PT [facility] Start: 11-15-2022 Refill Sheila Ace MA [facility] Start: 11-15-2022 Refill Sheila Ace MA [facility] Start: 11-14-2022 End: 11-14-2022 ambulatory JENNI NOBLET [facility] Start: 11-14-2022 End: 11-14-2022 ambulatory Jenni Noblet PT [facility] Comment on above: Spondylosis without myelopathy or radiculopathy, cervical region (Primary Dx); Neck pain; Cervicalgia; Chronic left shoulder pain; Left shoulder pain, unspecified chronicity Start: 11-14-2022 End: 11-14-2022 Treatment [facility] Start: 11-14-2022 End: 11-14-2022 ambulatory RHONDA KAISER [facility] Start: 11-14-2022 End: 11-14-2022 Office outpatient new 45 minutes Rhonda Kaiser MD Work Phone: [facility] Comment on above: Nicotine dependence, uncomplicated, unspecified nicotine product type (Primary Dx); Chronic obstructive pulmonary disease, unspecified COPD type ([facility]) Start: 11-14-2022 End: 11-14-2022 Patient encounter procedure Rhonda Kaiser MD Work Phone: [facility] Start: 11-12-2022 End: 11-12-2022 ambulatory [facility] Comment on above: Spondylosis without myelopathy or radiculopathy, cervical region (Primary Dx); Neck pain; Cervicalgia; Chronic left shoulder pain; Left shoulder pain, unspecified chronicity Start: 11-12-2022 End: 11-12-2022 Treatment [facility] Start: 11-05-2022 End: 11-05-2022 ambulatory JENNI NOBLET JENNI [facility] Start: 11-05-2022 End: 11-05-2022 ambulatory [facility] Comment on above: Spondylosis without myelopathy or radiculopathy, cervical region (Primary Dx); Neck pain; Cervicalgia; Chronic left shoulder pain; Left shoulder pain, unspecified chronicity Start: 11-05-2022 End: 11-05-2022 Treatment Jenni Noblet PT [facility] Start: 10-30-2022 End: 10-30-2022 ambulatory JENNI NOBLET JENNI [facility] Start: 10-30-2022 End: 10-30-2022 ambulatory Jenni Noblet PT [facility] Comment on above: Spondylosis without myelopathy or radiculopathy, cervical region (Primary Dx); Neck pain Start: 10-30-2022 End: 10-30-2022 Evaluation [facility] Start: 02-06-2022 End: 02-06-2022 ambulatory TAGGE KALIE TAGGE KALIE~[id number] [facility] Start: 02-06-2022 End: 02-06-2022 ambulatory [facility] Comment on above: Cervicalgia (Primary Dx) Start: 02-06-2022 End: 02-06-2022 Treatment [facility] Start: 02-04-2022 End: 02-04-2022 ambulatory STORM INMAN [place] Start: 01-28-2022 End: 01-28-2022 ambulatory STORM Martell [facility] Start: 01-24-2022 End: 01-24-2022 ambulatory TIANA BROWN~[id number] [facility] Procedures Date Procedure Procedure Detail Performing Clinician Start: 12-28-2024 CT of lungs Shanell montgomery MD Work Phone: Start: 11-27-2023 CT of lungs MD Shanell Craig Work Phone: Plan of Treatment Date Care Activity Detail Author Start: 10-31-2026 Lipid panel Cholesterol [facility] (Lipid Panel) [facility] Start: 11-18-2023 End: 11-18-2023 Patient encounter procedure 11/18/2023 Appointment Radiology [facility] Start: 11-28-2022 End: 11-28-2022 ambulatory 11/28/2022 Treatment Physical Therapy Jenni Huang, PT [facility] Start: 11-28-2022 End: 11-28-2022 ambulatory 11/28/2022 Treatment Physical Therapy Jenni Huang, PT [facility] Start: 11-25-2022 End: 11-25-2022 ambulatory 11/25/2022 Treatment Physical Therapy Jenni Huang, PT [facility] Start: 11-25-2022 End: 11-25-2022 ambulatory 11/25/2022 Treatment Physical Therapy Jenni Huang, PT [facility] Start: 11-20-2022 End: 11-20-2022 ambulatory 11/20/2022 Treatment Physical Therapy Jenni Huang, PT [facility] Start: 11-18-2022 End: 11-18-2022 Patient encounter procedure 11/18/2022 Appointment Radiology [facility] Start: 11-18-2022 End: 11-18-2022 ambulatory 11/18/2022 Treatment Physical Therapy Jenni Huang, PT [facility] Start: 11-14-2022 End: 11-14-[address] Lung Screening Imaging Routine Nicotine dependence, uncomplicated, unspecified nicotine product type Expected: 11/14/2022, Expires: 11/14/2023 [facility] Work Phone: Comment on above: Expected: 11/14/2022 , Expires: 11/14/2023 Start: 11-14-2022 End: 11-14-2022 ambulatory 11/14/2022 Treatment Physical Therapy Jenni Huang, PT [facility] [place] Start: 11-14-2022 End: 11-14-2022 Patient encounter procedure 11/14/2022 Office Visit Pulmonology Rhonda Kaiser MD [address] [place] [address] [facility] Start: 11-12-2022 End: 11-12-2022 ambulatory 11/12/2022 Treatment Physical Therapy Jenni Huang, PT [facility] Start: 11-05-2022 End: 11-05-2022 ambulatory 11/05/2022 Treatment Physical Therapy Jenni Huang, PT [facility] Start: 10-31-2022 Hypertension/CHF/CAD Annual BMP Blood Test Hypertension/CHF/CAD Annual BMP Blood Test [facility] Start: 10-31-2022 Screening for malign ant neoplasm of colon Colorectal Cancer Screening: Stool Based Tests (FOBT/FIT) [facility] Start: 12-20-2021 COVID-19 Vaccine (4 - Booster for Moderna series) COVID-19 Vaccine (4 - Booster for Moderna series) [facility] Start: 2020 Falls Risk Assessment Falls Risk Ass essment [facility] Start: 11-25-2019 Abdominal aortic aneurysm screening Abdominal Aortic Aneurysm (AAA) Screen [facility] Start: 11-25-2019 Adolescent depressio n screening assessment Depression Screening [facility] Start: 11-25-2019 Hepatitis C screening Hepatitis C Sc reening [facility] Start: 11-25-2019 Medicare Annual Wellness Visit Medicare Annual Wellness Visit [facility] Start: 11-25-2019 Social Influencers o f Health Screening Social Influencers of Health Screening [facility] Start: 2005 Zoster Vaccines (1 o f 2) Zoster Vaccines (1 of 2) [facility] Start: 1974 DTaP,Tdap,and Td Vaccines (1 - Tdap) DTaP,Tdap,and Td Vaccines (1 - Tdap) [facility] Start: 1956 Hepatitis A Vaccines (1 of 2 - Risk 2-dose series) Hepatitis A Vaccines (1 of 2 - Risk 2-dose series) [facility] CT Unspecified body region [facility] CT Unspecified body region [facility] Urine culture [facility] Immunizations Immunization Date Immunization Notes Care Provider Fa cili 10-22-2024 influenza, high dose seasonal, preservative-free Shanell Craig MD Work Phone: [facility] Payers Date Payer Category Payer Self-pay 2024 Unknown [id number] 2023 Medicare [id number] 2022 Medicare [id number] 2020 Medicare MEDICARE MEDICAR E PART A & B [id number] 2020-Present [address] [place] [address] Medicare [id number] 2020 Medicare [id number] 2020 Medicare [id number] 2014 Private Health Insurance A[employer] D OMESTIC A[employer] DOMESTIC [id number] 2014-Present [address] [address] [place] [address] [id number] 2014 Private Health Insurance AIMEE LEON [id number] 2014-Present [address] [place] [address] [id number] 2014 Private Health Insurance [id number] 1955 Unknown [id number] 2.16.840.1.802230.3.579.2.1 143 1955 Unknown [id number] 2.16.840.1.757433.3.579.2.1 143 1955 Unknown [id number] 2.16.840.1.539048.3.579.2.1 143 1955 Unknown [id number] 2.16.840.1.530338.3.579.2.1 143 1955 Unknown [id number] 2.16.840.1.056383.3.579.2.1 143 1955 Unknown [id number] 2.16.840.1.725659.3.579.2.1 143 1955 Unknown [id number] 2.16.840.1.981922.3.579.2.1 143 1955 Unknown [id number] 2.16.840.1.272837.3.579.2.1 143 1955 Unknown [id number] 2.16.840.1.661641.3.579.2.1 143 1955 Unknown [id number] 2.16.840.1.483575.3.579.2.1 143 1955 Unknown [id number] 2.16.840.1.040256.3.579.2.1 143 1955 Unknown [id number] 2.16.840.1.517331.3.579.2.1 143 1955 Unknown [id number] 2.16.840.1.019236.3.579.2.1 143 1955 Unknown [id number] 2.16.840.1.369991.3.579.2.1 143 1955 Unknown [id number] 2.16.840.1.438194.3.579.2.1 260 1955 Unknown [id number] 2.16.840.1.050147.3.579.2.1 260 1955 Unknown [id number] 2.16.840.1.335367.3.579.2.1 260 1955 Unknown [id number] 2.16.840.1.823855.3.579.2.1 260 1955 Unknown [id number] 2.16.840.1.069966.3.579.2.1 260 1955 Unknown [id number] 2.16.840.1.309691.3.579.2.1 260 Unknown [id number] 2.16.840.1.923245.3.579.2.5 31 Social History Date Type Detail Facility Tobacco smoking stat [facility] Tobacco smoking consumption unknown [facility] Start: 1955 Sex Assigned At Not on file [facility] Start: 10-19-2022 End: 11-18-2022 Exposure to SARS-CoV-2 (event) Not sure [facility] Start: 11-14-2022 Tobacco smoking status VTIS Ex-smoker [facility] Start: 02-10-2024 End: 02-10-2024 History of tobacco use Current smoker [facility] History of tobacco use Cigarette Smoker [facility] Start: 11-14-2022 Cigarettes smoked current (pack per day) - Reported 0.5 [facility] Sex Assigned At Sex Assigned At [facility] Other Start: 1955 Sex Assigned At Male [facility] Start: 12-29-2024 End: 01-06-2025 Sex Male (finding) [facility] Start: 07-07-2025 Tobacco smoking status NHIS Smokes tobacco daily (finding) [facility] Clinical Notes 08-29-2020 to 08-16-2025 Note Date & Type Note Facility 08-16-2025 Note [facility] Consult Note Reason for [...] on Eliquis. Goes to cardiac rehab at [facility] a few times a week. Had [...] Intimate Partner Violence: Not At Risk (10/15/2023) OR Safety & Environment Fear of Current or [...] Wt 78.5 kg (173 lb) BMI 24.13 kg/m??? Smoking Status Every Day BSA 1.98 m??? Meds: Current Outpatient Medications on File Prior to Visit Medication Sig Dispense Refill albuterol 90 mcg/actuation inhaler Inhale 1 puff in the morning. xnlxpejhnai-acjsdielv-rcupatyw (Trelegy Ellipta) 100-62.5-25 mcg blister with device [...] mg) by mouth at bedtime. (Patient not taking: Reported on 08/16/2025) 90 tablet 3 dapagliflozin propanediol [...] taking: Reported on 08/16/2025) 45 patch 3 (more content not included)... [facility] 12-31-2024 Note SUBJECTIVE Reason for Visit: Alejandro Maradiaga is a 69 y.o. year old male patient being seen for 6-month follow-up visit. HPI: Alejandro Maradiaga is a 69 yo male with [...] fibrillation (CMS/HCC) CHF (congestive heart failure) (CMS/HCC) Past Surgical History: Procedure Laterality Date ANKLE SURGERY CARDIAC CATHETERIZATION CARDIOVERSION NECK SURGERY Patient Active Problem List Diagnosis Atrial fibrillation, unspecified type (CMS/HCC) Acute pyelonephritis Systolic CHF (CMS/HCC) COPD (chronic obstructive pulmonary disease) (CMS/HCC) Atrial flutter ([facility]/HCC) S/P ablation of atrial flutter Atrial flutter by electrocardiogram ([facility]) Chronic systolic congestive heart failure ([facility]) family history includes Stroke in his mother. [...] in t (more content not included)... [facility] 12-31-2024 Note Patient here for 6 m o follow up atrial flutter and dilated cardiomyopathy. He is not taking any cholesterol or antihypertensive medications. He was admitted to [facility] in Oct 2024 for COPD exacerbation. He denies chest pain, palpitations, and lightheadedness/syncope. He follows with Dr. Osorio of pulmonology and sees him next week. Review of Systems Cardiovascular: Positive for dyspnea on exertion. Respiratory: Positive for cough (chronic). [facility] 02-18-2025 Radiology Diagnostic study note [facility] [place] [address] [place] [address] CT Scan Report Signed Patient: Alejandro Maradiaga MR#: [id number] : 1955 Acct:[id number] Age/Sex: 69 / M ADM Date: 5 Loc: [facility] Room: Type: [facility] Attending Dr: Tima Osorio MD Copies to: [...] Michael Seth M.D.12/28/2024 2:46 PM Dictation Location: [place] [address] Transcribed By: ROSIBEL 12/28/24 1446 Dictated By: Michael Seth DO 12/28/24 1435 Signed By: 12/28/24 1446 [facility] 10-22-2024 Evaluation note Diagnosis Onset Date Resolution Screening PSA (prostate specific antigen) acute October 22, 2024 11:01am Severe chronic obstructive pulmonary disease acute October 22, 2 024 11:01am UTI (urinary tract infection) acute October 22 024 11:01am [facility] Work Phone: 1(305) 624-868912-13-2024 Evaluation note* Diagnosis Onset Date Resolution Status Admit Date Screening PSA (prostate specific antigen) acute October 22, 2024 11:01am Severe chronic obstructive pulmonary disease acute October 22, 2024 11:01am UTI (urinary tract infection) acute October 22, 2024 11:01am Elevated glucose level acute Fe 2024 10:09am [facility] Work Phone: 1(739) 380-925712-13-2024 Evaluation note* Diagnosis Onset Date Resolution Status Admit Date Screening PSA (prostate specific antigen) acute October 22, 2024 11:01am Severe chronic obstructive pulmonary disease acute October 22, 2024 11:01am UTI (urinary tract infection) acute October 22, 2024 11:01am Elevated glucose level acute Fe 2024 10:09am Medicare annual wellness visit, subsequent acute December 29, 2024 10:09am Severe chronic obstructive pulmonary disease acute December 29, 2024 10:09am Severe chronic obstructive pulmonary disease acute January 06, 2025 10:51am Tobacco use disorder acute Febr uary 2024 10:51am Unspecified atrial flutter acute January 06, 2025 10:51am [facility] Work Phone: 1(431) 822-575001-22-2024 Evaluation note* Encounter Date Diagnosis Assessment Notes Treatment Notes Treatment Clinical Notes Nov, Severe chronic obstructive pulmonary disease (ICD-10 - J44.9) [facility] Other 12-15-2023 Evaluation note* Encounter Date Diagnosis Assessment Notes Treatment Notes Treatment Clinical Notes Oct, Unspecified atrial fibrillation (ICD-10 - I48.91) Continue meds, followup w cardio. Pt has not heard from Cardiac rehab, will reach out as he was referred by [facility] Oct, Unspecified atrial flutter (ICD-10 - I48.92) Oct, Chronic systolic congestive heart failure (ICD-10 - I50.22) Pt symptoms are improving. Oct, Sepsis due to Escherichia coli without acute organ dysfunction (ICD-10 - A41.51) Resolved. Has finished course of antibiotics Oct, Severe chronic obstructive pulmonary disease (ICD-10 - J44.9) Pt on nicotine patch. Continue to followup w pulmonology. [facility] Other 10-23-2023 Evaluation note* Encounter Date Diagnosis Assessment Notes Treatment Notes Treatment Clinical Notes Aug, Severe chronic obstructive pulmonary disease (ICD-10 - J44.9) Referral to pulmonary rehab Aug, Tobacco use disorder (ICD-10 - F17.200) [facility] Other 10-16-2023 Evaluation note* Encounter Date Diagnosis Assessment Notes Treatment Notes Treatment Clinical Notes Aug, Chronic bronchitis, unspecified chronic bronchitis type (ICD-10 - J42) [facility] Other 08-29-2023 Evaluation note* Encounter Date Diagnosis Assessment Notes Treatment Notes Treatment Clinical Notes Jun, Chronic bronchitis, unspecified chronic bronchitis type (ICD-10 - J42) [facility] Other 08-11-2023 Evaluation note* Encounter Date Diagnosis [...] likes to keep an rx on hand. [facility] Other 05-01-2023 History general Narrative - Reported* Type Description Date Medical History COPD Medical History Seasonal allergies Medical History Hyperlipidemia Surgical History Cataract surgery, both 03/2023 Surgical History Sinus surgery 2019 Surgical History C7 surgery and foramenostomy [facility] Other 05-01-2023 History general Narrative - Reported* Type Description Date Medical History Seasonal allergies Medical History Hyperlipidemia Surgical History Cataract surgery, both 03/2023 Surgical History Sinus surgery 2019 Surgical History C7 surgery and foramenostomy 19 93 Hospitalization History rt fibula fx 2017 [facility] Other 05-01-2023 History general Narrative - Reported* Type Description Date Medical History Seasonal allergies Medical History Hyperlipidemia Medical History Afib Surgical History Cataract surgery, both 03/2023 Surgical History Sinus surgery 2019 Surgical History C7 surgery and foramenostomy 19 93 Hospitalization History rt fibula fx 2017 [facility] Other 01-16-2023 History of Present illness Narrative* Jenni Garzonbenigno, PT - 11/25/2022 12:15 PM EST [facility] [place] [address] [place] [address] Physical Therapy Treatment Patient Name: Alejandro Maradiaga Date of : 1955 Today's Date: 11/25/22 Visit Number: 7 Referring Provider: Hunter Cortes DO Patient Primary Language: Ecuadorean Referring Diagnosis: Spondylosis without myelopathy or radiculopathy, [...] symptoms by > 50%. 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 [] Goals met, discharge to HEP [] Hold or discharge therapy due to: Jenni Huang PT documented in this encounterGeisinger Community Medical [id number] History of Present illness Narrative* Jenni Huang PT - 11/20/2022 12:00 PM EST [facility] [place] [email or web address] [place] [address] Physical Therapy Treatment Patient Name: Alejandro Maradiaga Date of : 1955 Today's Date: 11/20/22 Visit Number: 6 Referring Provider: Hunter Cortes DO Patient Primary Language: Ecuadorean Referring Diagnosis: Spondylosis without myelopathy or radiculopathy, [...] symptoms by > 50%. 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 [] Goals met, discharge to HEP [] Hold or discharge therapy due to: Jenni Huang PT documented in this encounterGeisinger Community Medical [id number] History of Present illness Narrative* Jenni Huang PT - 11/18/2022 9:00 AM EST [facility] [place] [email or web address] [place] [address] Physical Therapy Treatment Patient Name: Alejandro Maradiaga Date of : 1955 Today's Date: 11/18/22 Visit Number: 5 Referring Provider: Hunter Cortes DO Patient Primary Language: Ecuadorean Referring Diagnosis: Spondylosis without myelopathy or radiculopathy, [...] symptoms by > 50%. 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 [] Goals met, discharge to HEP [] Hold or discharge therapy due to: Jenni Huang PT documented in this encounterGeisinger Community Medical [id number] History of Present illness Narrative* Sheila Ace MA - 11/15/2022 9:50 AM EST Pt called for a refill on Trelegy Ellipta 200-62.5-25 mcg inhaler. Stated he got both of his albuterols but not Trelegy Ellipta. documented in this encounterGeisinger Community Medical [id number] History of Present illness Narrative* Jenni Huang PT - 11/14/2022 1:30 PM EST [facility] [place] [address] [place] [address] Physical Therapy Treatment Patient Name: Alejandro Maradiaga Date of : 1955 Today's Date: 11/14/22 Visit Number: 4 Referring Provider: Hunter Cortes DO Patient Primary Language: Ecuadorean Referring Diagnosis: Spondylosis without myelopathy or radiculopathy, [...] symptoms by > 50%. [] [] [] Snf Goals - 4 weeks Met Progressing Towards [...] current frequency to advance towards short and parts counterman goals. [] Goals met, discharge to HEP [] Hold or discharge therapy due to: Jenni Huang PT documented in this encounterGeisinger Community Medical [id number] History of Present illness Narrative* Rhonda Kaiser MD - 11/14/2022 10:30 AM EST Images from the original note were not included. Pulmonary and Sleep Medicine [address] [place] [address], [address] [place] [address] Time:11:24 AM EST Reason for Consultation: COPD [...] love of saline and possibly moving to [facility] where he does have a sailboat. He also has a daughter who teaches [place] in [facility]. 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 see an timing machine operator Prior history of latex allergy COPD [...] DR capsule, 1 capsule, Disp: , Rfl: ywosqgfeoaj-pdvptyldauwh-quwodobtdu (Trelegy Ellipta) 200-62.5-25 mcg inhaler, Inhale 1 puff (200 mcg total) by mouth 1 (one) time each day., Disp: 60 each, Rfl: 4 npdiwqjqikc-tnikrtfgccob-wzswipucor (Trelegy Ellipta) 200-62.5-25 mcg inhaler, Inhale 1 puff by mouth daily, Disp: 60 each, Rfl: 4 tggwwtvrccn-wotnjczcwjot-hbrcjmyitw (Trelegy Ellipta) 200-62.5-25 mcg inhaler, Inhale 1 puff by mouth daily, Disp: 60 each, Rfl: 4 cdeucfeltpw-fyniqnvytgzv-rwaoeovnfj (Trelegy Ellipta) 200-62.5-25 mcg inhaler, Inhale 1 [...] - General (Internal Medicine) documented in this encounterGeisinger Community Medical [id number] History of Present illness Narrative* Jenni Huang, PT - 11/12/2022 3:00 PM EST [facility] [place] [address] [place] [address] Physical Therapy Treatment Patient Name: Alejandro Maradiaga Date of : 1955 Today's Date: 11/12/22 Visit Number: 3 Referring Provider: Hunter Cortes DO Patient Primary Language: Ecuadorean Referring Diagnosis: Spondylosis without myelopathy or radiculopathy, [...] symptoms by > 50%. [] [] [] Snf Goals - 4 weeks Met Progressing Towards [...] current frequency to advance towards short and parts counterman goals. [] Goals met, discharge to HEP [] Hold or discharge therapy due to: Jenni Huang PT documented in this encounterGeisinger Community Medical [id number] History of Present illness Narrative* Jenni Huang PT - 11/05/2022 11:30 AM EST [facility] [place] [email or web address] [place] [address] Physical Therapy Treatment Patient Name: Alejandro Maradiaga Date of : 1955 Today's Date: 11/05/22 Visit Number: 2 Referring Provider: Hunter Cortes DO Patient Primary Language: Ecuadorean Referring Diagnosis: Spondylosis without myelopathy or radiculopathy, [...] over weekend. He feels HEP issued at [employer]. Pain In: 10 Out: 210 Objective: Poor posture at rest but able [...] symptoms by > 50%. 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 [] Goals met, discharge to HEP [] Hold or discharge therapy due to: Jenni Huang PT documented in this encounterGeisinger Community Medical [id number] History of Present illness Narrative* Jenni Huang PT - 10/30/2022 9:30 AM EST [facility] [place] [email or web address] [place] [address] Physical Therapy Orthopedic Evaluation Patient Name: Alejandro Maradiaga Date of : 1955 Today's Date: 10/30/22 Visit Number: 1 Referring Provider: Hunter Cortes DO Patient Primary Language: Ecuadorean Referring Diagnosis: Spondylosis without myelopathy or radiculopathy, [...] disease [] Rheumatic disease [x] Arthritis [] [place]/Heart Problems [] Cancer [] Pacemaker [] Other [x]Refer to full medical chart in [facility] []Unremarkable [x] Wears glasses/contacts [] [] Bowel or Bladder Issues Tests: [x] X-Ray: [] MRI: [] Other: 10/07/22 Multilevel DDD Objective: [place] Precautions: YES Observations: B mild dupuytren deformity [...] symptoms by > 50%. [] [] [] Snf Goals - 4 weeks Met Progressing Towards [...] plan: Yes Treatment Plan: [x] Therapeutic Exercise (71748) [] Iontophoresis: 4 mg/mL Dexamethasone Sodium Phosphate 40-120 mAmin (46978) [x] Therapeutic Activity (98967) [] Ultrasound (22049) [] Gait Training (34693) []Electrical Stimulation Unattended (91643) [x] Neuromuscular Re-education (59931) [] Electrical Stimulation Attended (42178) [x] Manual Therapy (26405) [] Aquatic Therapy (26032) [x] Instruction in HEP [] Lumbar/Cervical Traction (97690) [] [] Dry Needling, 1 or 2 muscles () [] [] Dry Needling, 3 or more muscles () [] Vasopneumatic cold with compression (18991) [] Hot pack/Cold Pack [facility] [place] [address] [place] [address] Physical Therapy Treatment Patient Name: Alejandro Maradiaga Date of : 1955 Today's Date: 10/30/22 Visit Number: 1 Referring Provider: Hunter Cortes DO Patient Primary Language: Ecuadorean Referring Diagnosis: Spondylosis without myelopathy or radiculopathy, [...] & manual well & left with same / neck pain. Assessment: [] Progressing toward goals. [...] symptoms by > 50%. 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 [] Goals met, discharge to HEP [] Hold or discharge therapy due to: Jenni Huang PT documented in this encounterGeisinger Community Medical [id number] History of Present illness Narrative* Kalie Meléndez, [...] him how to self massage Modalities: PRN: [facility] Precautions: none, L RCR 2017, laminectomy [...] goals. Kalie Meléndez PT documented in this encounterGeisinger Community Medical [id number] Physician Hospital Discharge summaryEMERGENCY DEPARTMENT DISCHARGE SUMMARY PATIENT NAME:ALEJANDRO MARADIAGA AGE: 66 Years SEX: Male PHONE:[phone] DOS: 07/12/2021 06:15:00 : 1955 ER PHYSICIAN:Kamlesh [...] DIAGNOSTICS: FOLLOW UP: With: Address: When: [address], [address] [place] [address] Business (1) Comments: [facility]ment[facility] Bacteria identified Aer cx Nom (Drain)[facility] Microbiology PROCEDURE: Culture Drainage SOURCE: Sinus BODY [...] <=0.25 Tetracycline Resistant >=16 Trimethoprim/ Susceptible <=10 SulfamethoxazoleLakehealth Beachwood Medical CenterComment on above:Performed By: #### 607-2 #### [facility] 3 [facility] note* Diagnosis Cervicalgia- Primary documented in this encounter [facility] note* Diagnosis Spondylosis without myelopathy or radiculopathy, cervical region- Primary Neck pain Cervicalgia documented in this encounter [facility] note* Diagnosis Spondylosis without myelopathy or radiculopathy, cervical region- Primary Neck pain Cervicalgia Cervicalgia Chronic left shoulder pain Pain in joint, shoulder region Left shoulder pain, unspecified chronicity documented in this encounter [facility] [place]* Diagnosis Nicotine dependence, uncomplicated, unspecified nicotine product type- Primary Chronic obstructive pulmonary disease, unspecified COPD type (CMS/HCC) documented [facility] this encounter [facility] [place] [facility]* Diagnosis Spondylosis without myelopathy or radiculopathy, cervical region- Primary Neck pain Cervicalgia Cervicalgia Chronic left shoulder pain Pain in joint, shoulder region Left shoulder pain, unspecified chronicity documented in this encounter [facility] note* Diagnosis Spondylosis without myelopathy or radiculopathy, cervical region- Primary Neck pain Cervicalgia Cervicalgia Chronic left shoulder pain Pain in joint, shoulder region Left shoulder pain, unspecified chronicity documented in this encounter [facility] [place] noteNo [facility] Other Evaluation note* Diagnosis Onset Date Resolution Status Severe chronic obstructive pulmonary disease acute [facility] Work Phone: Evaluation noteNo assessment information available [facility] Work Phone: Evaluation note* Diagnosis Onset Date Resolution Status Chronic systolic congestive heart failure acute Severe chronic obstructive pulmonary disease acute Unspecified atrial flutter a cute Severe chronic obstructive pulmonary disease acute Unspecified atrial flutter a cute [facility] Work Phone: Evaluation note* Diagnosis Onset Date Resolution Status Admit Date Severe chronic obstructive pulmonary disease acute July 07, 2 025 10:54am Tobacco use disorder acute Aug2024 10:54am Unspecified atrial flutter acute July 07, 2025 10:54am [facility] Work Phone: Reason for referral (narrative)No reason for referral information availableUniversity Hospitals [facility] Work Phone: Rewipq for visit Narrative* Consultation (Routine) - Authorized Specialty Diagnoses / Procedures Referred By Kenny glover Referred To Contact Physical Therapy Diagnoses Pain in left shoulder Cervicalgia Sinan Lewis MD [address] [place] [address] [facility] [address] [place] [address] Referral ID Status Reason Start Date Expiration Date Visits Requested Visits Authorized [id number] Authorized Specialty Services Required 01/15/2022 07/14/2022 1 8 [facility] N[facility]* Consultation (Routine) - Authorized Specialty Diagnoses / Procedures Referred By Contac t Referred To Contact Physical Therapy Diagnoses Spondylosis without myelopathy or radiculopathy, cervical region Hunter Cortes, [address] [place] [address] [facility] [address] [facility] [address] [place] [address] Referral ID Status Reason Start Date Expiration Date Visits Requested Visits Authorized [id number] Authorized Specialty Services Required 04/07/2023 1 8 [facility] Summary Purpose Family History No Family History Records Found Relationship Condition Age at Onset Recorded Date/T braden father Unknown Diabetes mellitus Unknown Not Specified History of stroke Unknown Unknown Relationship Condition Age at Onset Recorded Date/T braden father Unknown Diabetes mellitus Unknown mother History of stroke Unknown Unknown Advance Directives No Advanced Directives Records FoundDocuments on File Type Date Recorded Patient Parer Expl anation 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 Advance Directive Response Recorded Date/ Time Advance [...] type (CMS/HCC) Rhonda Kaiser MD [address] [address] Referral ID Status Reason Start Date Expiration Date Visits Re quested Visits Authorized [id number] Closed 1 1 Specialty Diagnoses / Procedures Referred By Contac t Referred To Contact Radiology Diagnoses Nicotine dependence, uncomplicated, unspecified nicotine product type Procedures CT Lung Screening Rhonda Kaiser MD [address] [address] [facility] [place] Referral ID Status Reason Start Date Expiration Date V isits Requested Visits Authorized [id number] Authorized 11/14/2022 05/13/2023 1 1 Reason *Waiting for appt Establish for COPD - moved here from [place] Diagnosis 1 Chronic bronchitis, unspecified chronic bronchitis type (J42) Referral Organization [facility] Referring Provider First Name Shanell Referring Provider Last Name Kiara Referring Provider Specialty Family Medi cine Referred Organization [facility] Pulmonary Dise ase Referred Provider Tima Osorio Referred Address [address] [place] [address],[facility] [address],[place], [place],[address] Referred Provider Specialty Pulmonary Di seases Referral [...] disease Chief Complaint Ref: Dr Craig- Copd Tx Follow Up j44.9 Chief Complaint 4 MONTH [...] section and content) DATE CREATED AUTHOR 07/13/2021 [facility] DATE CREATED AUTHOR AUTHOR'S ORGANIZ ATION 11/25/2022 [facility] DATE CREATED AUTHOR AUTHOR'S ORGANIZ ATION 01/18/2023 [facility] DATE CREATED AUTHOR AUTHOR'S ORGANIZ ATION 03/04/2023 [facility] DATE CREATED AUTHOR AUTHOR'S ORGANIZ ATION 02/05/2024 [facility] DATE CREATED AUTHOR AUTHOR'S ORGANIZ ATION 01/03/2025 [facility] DATE CREATED AUTHOR AUTHOR'S ORGANIZ ATION 08/18/2025 [facility] Care Teams (unrecognized sec tion and [...] December 28, 2024 End: December 28, 2024 Manager Sales And Marketing Relationship Specialty Start Date End Date Elle Cortes MD [address] [address] PCP - General Internal Medicine 10/18/21 Manager Sales And Marketing Relationship Specialty Start Date End Date Elle Cortes MD [address] [address] PCP - General Internal Medicine 10/18/21 Manager Sales And Marketing Relationship Specialty Start Date End Date Elle Cortes MD [address] [address] PCP - General Internal Medicine 10/18/21 Manager Sales And Marketing Relationship Specialty Start Date End Date Elle Cortes MD [address] [address] PCP - General Internal Medicine 10/18/21 Manager Sales And Marketing Relationship Specialty Start Date End Date Elle Cortes MD [address] [address] PCP - General Internal Medicine 10/18/21 Manager Sales And Marketing Relationship Specialty Start Date End Date Elle Cortes MD [address] [address] PCP - General Internal Medicine 10/18/21 Manager Sales And Marketing Relationship Specialty Start Date End Date Elle Cortes MD [address] [address] PCP - General Internal Medicine 10/18/21 Team [...] 06, 2025 End: January 06, 2025 Tima Osoroi MD Attending Provider Active Start: January 06, 2025 End: January 06, 2025 Ordered Prescriptions (unrec ognized section and [...] 11/26/2022 ipratropium-albuteroL (DUONEB) 0.5-2.5 mg/3 mL nebulizer solutionIndications:Investigations Director carmen obstructive pulmonary disease, unspecified COPD type [...] Dispensed Refills Start Date End Da te helohipnwsy-ftkaisvkficp-hx lanterol (Trelegy Ellipta) 200-62.5-25 mcg inhaler Inhale [...] BE BASED ON THE PRIMARY CLINICAL RECORDS. [employer] [facility]. provides no warranty or guarantee of the accuracy or completeness of information in this document.
[2025-08-23] MEDS: ALBUTEROL SULFATE 2.5 MG/3 ML VIAL NEB IH (12:01)
== END 2025-08-23 11:07 | disposition home or self-care (01) ==
LOC: CARD 11:06
PROVIDERS: PCP Family Medicine; Visit Provider Internal Medicine Critical Care Medicine
DX: J44.9 Chronic obstructive pulmonary disease, unspecified (principal)
CPT/HCPCS: 94060; 94726; 94729